=== PATIENT | female | born 1950 | race Caucasian/White ===

== ENCOUNTER 2024-08-06 16:46 | Inpatient (IN) | payer MEDICARE, OTHER ==
--- NOTE | 2024-08-06 17:06 | ED ---
SOB HPI - General Stated Complaint: short of breath Time Seen by Provider: 08/06/24 17:02 Source: patient, RN notes reviewed Mode of arrival: wheelchair Limitations: no limitations - History of Present Illness Initial Comments: This is a 74-year-old female with history of COPD, pulmonary hypertension, AAA and home O2 use (4 LPM) presenting with worsening shortness of breath x 5 days. Patient endorses dyspnea with exertion and presyncope. Denies worsening dyspnea when supine. Endorses receiving prednisone and cefdinir from her primary care on Friday with worsening symptoms. States oxygen saturation has gone as low as the 70s. States she was diagnosed with a 6 cm AAA in June 2024 and scheduled for repair by Dr. Rowan once her current symptoms improve. Is ochoa eduled for a heart catheterization with Dr. Jiménez when her symptoms improve. Recently diagnosed with a pericardial effusion and right ventricular hypertrophy. Also endorses thrush with a burning/dry throat not improving with nystatin mouthwash. Denies fever, chills, chest pain, abdominal pain, N/V/D. MD Complaint: shortness of breath Onset/Timin -: days(s) - Related Data Home Medications Medication Instructions Recorded Confirmed Aspirin EC [Ecotrin Low Dose] 81 mg PO DAILY 08/06/24 08/06/24 Atorvastatin [Lipitor] 40 mg PO DAILY 08/06/24 08/06/24 Cefdinir [Omnicef] 300 mg PO BID 08/06/24 08/06/24 Cetirizine HCl [Zyrtec] 10 mg PO DAILY 08/06/24 08/06/24 Dicyclomine [Bentyl] 10 mg PO DIRECTED 08/06/24 08/06/24 Ergocalciferol [Vitamin D2 (1250 1,250 mcg PO DIRECTED 08/06/24 08/06/24 Mcg = 89355 Iu)] Fluticasone/Umeclidin/Vilanter 1 puff INHALATION DIRECTED 08/06/24 08/06/24 [Trelegy Ellipta 200-62.5-25] Furosemide [Lasix] 20 mg PO DIRECTED 08/06/24 08/06/24 Ipratropium-Albuterol Nebulize 3 ml INHALATION DIRECTED PRN 08/06/24 08/06/24 [Duoneb 0.5 mg-3 mg/3 ml Soln] Ipratropium/Albuter 20-100Mcg 1 puff INHALATION DIRECTED 08/06/24 08/06/24 [Combivent Respimat 20-100Mcg Inhaler] [place] 20mg 20 mg PO DAILY 08/06/24 08/06/24 Nystatin 100,000 Unit/ml Susp 500,000 unit PO QID 08/06/24 08/06/24 [Mycostatin Oral Susp] Sertraline [Zoloft] 50 mg PO DIRECTED 08/06/24 08/06/24 amLODIPine [Norvasc] 2.5 mg PO DAILY 08/06/24 08/06/24 predniSONE [Deltasone] See Taper PO DAILY 08/06/24 08/06/24 Allergies Allergy/AdvReac Type Severity Reaction Status Date / Time levofloxacin [From Levaquin] Allergy Unknown Verified 08/06/24 17:04 tetracycline Allergy Unknown Verified 08/06/24 17:04 Review of Systems ROS Statement: Those systems with pertinent positive or pertinent negative responses have been documented in the HPI. ROS Other: All systems not noted in ROS Statement are negative. General Exam General appearance: alert, in no apparent distress Head exam: Present: atraumatic, normocephalic, normal inspection Eye exam: Present: normal appearance, PERRL, EOMI. Absent: scleral icterus, conjunctival injection, periorbital swelling ENT exam: Present: normal exam, mucous membranes moist Neck exam: Present: normal inspection. Absent: tenderness, meningismus, lymphadenopathy Respiratory exam: Present: rhonchi (RLL rhonchi), decreased breath sounds. Absent: respiratory distress, wheezes, rales, stridor Cardiovascular Exam: Present: regular rate, normal rhythm, normal heart sounds. Absent: systolic murmur, diastolic murmur, rubs, gallop, clicks GI/Abdominal exam: Present: soft, normal bowel sounds, pulsatile mass (Pulsatile mass noted in epigastric region). Absent: distended, tenderness, guarding, rebound, rigid Extremities exam: Present: normal inspection, full ROM, normal capillary refill. Absent: tenderness, pedal edema, joint swelling, calf tenderness Back exam: Present: normal inspection Neurological exam: Present: alert, oriented X3, CN II-XII intact Psychiatric exam: Present: normal affect, normal mood Skin exam: Present: warm, dry, intact, normal color. Absent: rash Course Vital Signs 08/06/24 17:05 Temperature 97.6 F Pulse Rate 112 H Respiratory 22 Rate Blood Pressure 96/62 O2 Sat by Pulse 83 L Oximetry Medical Decision Making - Medical Decision Making Was pt. sent in by a medical professional or institution (, S[facility]NA[facility], PRODUCER ASSISTANT, urgent care, hospital, or fdc...) When possible be specific @ -No Did you speak to anyone other than the patient for history (EMS, parent, family, police, friend...)? What history was obtained from this source @ -No Did you review nursing and triage notes (agree or disagree)? Why? @ -I reviewed and agree with nursing and triage notes Were old charts reviewed (outside hosp., previous admission, EMS record, old EKG, old radiological studies, urgent care reports/EKG's, fdc records)? Report findings @ -No old charts were reviewed Differential Diagnosis (chest pain, altered mental status, abdominal pain women, abdominal pain men, vaginal bleeding, weakness, fever, dyspnea, syncope, headache, dizziness, GI bleed, back pain, seizure, CVA, palpatations, mental health, musculoskeletal)? @ -Differential Dyspnea: Coronary syndrome, arrhythmia, tamponade, asthma, COPD, pulmonary embolism, pneumonia, pneumothorax, pulmonary effusion, anaphylaxis, diabetic ketoacidosis, flailed chest, pulmonary contusion, diaphragmatic rupture, anemia, neuromuscular , this is not meant to be an all-inclusive list. EKG interpreted by me (3pts min.). @ -Sinus rhythm with RBBB and short CHRIS. No ST changes or T wave inversion. Ventricular rate 97 bpm, CHRIS 115 ms, QRS duration 102 ms, QTc 434 ms. X-rays interpreted by me (1pt min.). @ -CXR shows prominent vascular markings indicating pulmonary edema and possible atypical pneumonia. CT interpreted by me (1pt min.). @ -None done U/S interpreted by me (1pt. min.). @ -None done What testing was considered but not performed or refused? (CT, X-rays, U/S, labs)? Why? @ -None What meds were considered but not given or refused? Why? @ -None Did you discuss the management of the patient with other professionals (professionals i.e. Dr., PA, PRODUCER ASSISTANT, lab, RT, psych nurse, foster care social worker, guard immigration, t eacher, cra officer, heel caser)? Give summary @ -Sharif physician advised to patient's status and advised admit to ICU for sepsis. Was smoking cessation discussed for >3mins.? @ -No Was critical care preformed (if so, how long)? @ -No Were there social determinants of health that impacted care today? How? (Homelessness, low income, unemployed, alcoholism, drug addiction, transportation, low edu. Level, literacy, decrease access to med. care, correction, rehab)? @ -No Was there de-escalation of care discussed even if they declined (Discuss DNR or withdrawal of care, Hospice)? DNR status @ -No What co-morbidities impacted this encounter? (DM, HTN, Smoking, COPD, CAD, Cance r, CVA, ARF, Chemo, Hep., AIDS, mental health diagnosis, sleep apnea, morbid obesity)? @ -COPD, AAA, pulmonary hypertension Was patient admitted / discharged? Hospital course, mention meds given and r oute, prescriptions, significant lab abnormalities, going to OR and other pertinent info. @ -Lab work shows leukocytosis (15.9) with left shift. Hypokalemia (3.3), lactic acidosis (5.0), elevated BNP (14K) and slightly elevated troponin (0.036). Cepheid test positive for RSV. CXR shows prominent vascular markings indicating pulmonary edema and possible atypical pneumonia. Patient provided p.o. [place], [place], IV Rocephin and normal saline. Sharif physician advised to patient's status and advised admit to ICU for sepsis. Discussed patient with Dr. Gilbert. Undiagnosed new problem with uncertain prognosis? @ -Sepsis, pneumonia Drug Therapy requiring intensive monitoring for toxicity (Heparin, Nitro, Insulin, Cardizem)? @ -No Were any procedures done? @ -No Diagnosis/symptom? @ -Sepsis, pneumonia, CHF with pulmonary edema, AAA Acute, or Chronic, or Acute on Chronic? @ -Acute Uncomplicated (without systemic symptoms) or Complicated (systemic symptoms)? @ -Complicated Side effects of treatment? @ -No Exacerbation, Progression, or Severe Exacerbation? @ -No Poses a threat to life or bodily function? How? (Chest pain, USA, CT, pneumonia, PE, COPD, DKA, ARF, appy, cholecystitis, CVA, Diverticulitis, Homicidal, Suicidal, threat to staff... and all critical care pts) @ -Sepsis, pneumonia, AAA -end organ damage, respiratory failure, exsanguination with dissection/rupture - Lab Data Result diagrams: 08/06/24 17:32 08/06/24 17:32 Lab Results 08/06/24 08/06/24 08/06/24 Range/Units 17:32 17:32 17:32 WBC 15.9 H (3.8-10.6) k/uL RBC 5.56 H (3.80-5.40) m/uL Hgb 16.3 H (11.4-16.0) gm/dL Hct 50.9 H (34.0-46.0) % MCV 91.6 (80.0-100.0) fL MCH 29.4 (25.0-35.0) pg MCHC 32.1 (31.0-37.0) g/dL RDW 15.4 (11.5-15.5) % Plt Count 285 (150-450) k/uL MPV 8.4 Neutrophils % 92 % Lymphocytes % 4 % Monocytes % 3 % Eosinophils % 0 % Basophils % 0 % Neutrophils # 14.5 H (1.3-7.7) k/uL Lymphocytes # 0.7 L (1.0-4.8) k/uL Monocytes # 0.5 (0-1.0) k/uL Eosinophils # 0.0 (0-0.7) k/uL Basophils # 0.0 (0-0.2) k/uL PT 10.3 (10.0-12.5) sec INR 0.9 (<1.2) APTT 21.8 L (22.0-30.0) sec VBG pH (7.31-7.41) VBG pCO2 (37-51) mmHg VBG HCO3 (24-28) mmol/L Sodium 139 (137-145) mmol/L Potassium 3.3 L (3.5-5.1) mmol/L Chloride 96 L (98-107) mmol/L Carbon Dioxide 24 (22-30) mmol/L Anion Gap 19 mmol/L BUN 27 H (7-17) mg/dL Creatinine 1.00 (0.52-1.04) mg/dL Est GFR (CKD-EPI)AfAm 66 (>60 ml/min/1.73 sqM) Est GFR (CKD-EPI)NonAf 57 (>60 ml/min/1.73 sqM) Glucose 138 H (74-99) mg/dL Lactic Ac Sepsis Rflx Plasma Lactic Acid Yunior (0.7-2.0) mmol/L Calcium 10.4 H (8.4-10.2) mg/dL Magnesium 1.9 (1.6-2.3) mg/dL Total Bilirubin 0.9 (0.2-1.3) mg/dL AST 45 H (14-36) U/L ALT 33 (4-34) U/L Alkaline Phosphatase 89 (38-126) U/L Troponin I (0.000-0.034) ng/mL NT-Pro-B Natriuret Pep 25774 pg/mL Total Protein 7.9 (6.3-8.2) g/dL Albumin 4.9 (3.5-5.0) g/dL Influenza Type A (PCR) (Not Detectd) Influenza Type B (PCR) (Not Detectd) RSV (PCR) (Not Detectd) SARS-CoV-2 (PCR) (Not Detectd) 08/06/24 08/06/24 08/06/24 Range/Units 17:32 17:32 17:32 WBC (3.8-10.6) k/uL RBC (3.80-5.40) m/uL Hgb (11.4-16.0) gm/dL Hct (34.0-46.0) % MCV (80.0-100.0) fL MCH (25.0-35.0) pg MCHC (31.0-37.0) g/dL RDW (11.5-15.5) % Plt Count (150-450) k/uL MPV Neutrophils % % Lymphocytes % % Monocytes % % Eosinophils % % Basophils % % Neutrophils # (1.3-7.7) k/uL Lymphocytes # (1.0-4.8) k/uL Monocytes # (0-1.0) k/uL Eosinophils # (0-0.7) k/uL Basophils # (0-0.2) k/uL PT (10.0-12.5) sec INR (<1.2) APTT (22.0-30.0) sec VBG pH (7.31-7.41) VBG pCO2 (37-51) mmHg VBG HCO3 (24-28) mmol/L Sodium (137-145) mmol/L Potassium (3.5-5.1) mmol/L Chloride (98-107) mmol/L Carbon Dioxide (22-30) mmol/L Anion Gap mmol/L BUN (7-17) mg/dL Creatinine (0.52-1.04) mg/dL Est GFR (CKD-EPI)AfAm (>60 ml/min/1.73 sqM) Est GFR (CKD-EPI)NonAf (>60 ml/min/1.73 sqM) Glucose (74-99) mg/dL Lactic Ac Sepsis Rflx Plasma Lactic Acid Yunior 5.0 H* (0.7-2.0) mmol/L Calcium (8.4-10.2) mg/dL Magnesium (1.6-2.3) mg/dL Total Bilirubin (0.2-1.3) mg/dL AST (14-36) U/L ALT (4-34) U/L Alkaline Phosphatase (38-126) U/L Troponin I 0.036 H* (0.000-0.034) ng/mL NT-Pro-B Natriuret Pep pg/mL Total Protein (6.3-8.2) g/dL Albumin (3.5-5.0) g/dL Influenza Type A (PCR) Not Detected (Not Detectd) Influenza Type B (PCR) Not Detected (Not Detectd) RSV (PCR) Detected A (Not Detectd) SARS-CoV-2 (PCR) Not Detected (Not Detectd) 08/06/24 08/06/24 Range/Units 17:44 18:07 WBC (3.8-10.6) k/uL RBC (3.80-5.40) m/uL Hgb (11.4-16.0) gm/dL Hct (34.0-46.0) % MCV (80.0-100.0) fL MCH (25.0-35.0) pg MCHC (31.0-37.0) g/dL RDW (11.5-15.5) % Plt Count (150-450) k/uL MPV Neutrophils % % Lymphocytes % % Monocytes % % Eosinophils % % Basophils % % Neutrophils # (1.3-7.7) k/uL Lymphocytes # (1.0-4.8) k/uL Monocytes # (0-1.0) k/uL Eosinophils # (0-0.7) k/uL Basophils # (0-0.2) k/uL PT (10.0-12.5) sec INR (<1.2) APTT (22.0-30.0) sec VBG pH 7.43 H (7.31-7.41) VBG pCO2 40 (37-51) mmHg VBG HCO3 26 (24-28) mmol/L Sodium (137-145) mmol/L Potassium (3.5-5.1) mmol/L Chloride (98-107) mmol/L Carbon Dioxide (22-30) mmol/L Anion Gap mmol/L BUN (7-17) mg/dL Creatinine (0.52-1.04) mg/dL Est GFR (CKD-EPI)AfAm (>60 ml/min/1.73 sqM) Est GFR (CKD-EPI)NonAf (>60 ml/min/1.73 sqM) Glucose (74-99) mg/dL Lactic Ac Sepsis Rflx Y Plasma Lactic Acid Yunior (0.7-2.0) mmol/L Calcium (8.4-10.2) mg/dL Magnesium (1.6-2.3) mg/dL Total Bilirubin (0.2-1.3) mg/dL AST (14-36) U/L ALT (4-34) U/L Alkaline Phosphatase (38-126) U/L Troponin I (0.000-0.034) ng/mL NT-Pro-B Natriuret Pep pg/mL Total Protein (6.3-8.2) g/dL Albumin (3.5-5.0) g/dL Influenza Type A (PCR) (Not Detectd) Influenza Type B (PCR) (Not Detectd) RSV (PCR) (Not Detectd) SARS-CoV-2 (PCR) (Not Detectd) Disposition Clinical Impression: RSV (acute bronchiolitis due to respiratory syncytial virus), Lactic acidosis, Acute pulmonary edema, Community acquired pneumonia, Congestive heart failure, Hypokalemia Disposition: ADMITTED IP TO THIS HOSP Condition: Stable Is patient prescribed a controlled substance at d/c from ED?: No Referrals: Nolan Chopra MD [Primary Care Provider] - 1-2 days Time of Disposition: 19:28 Decision Date: 08/06/24 Decision Time: 19:28
[2024-08-06 17:55] LABS: VBG PH 7.43 (7.31-7.41)
[2024-08-06 17:56] LABS: Basophils % (A) 0 %; Eosinophils % (A) 0 %; HCT 50.9 % (34.0-46.0); HGB 16.3 gm/dL (11.4-16.0); Lymphocytes # (A) 0.7 k/uL (1.0-4.8); Lymphocytes % (A) 4 %; MCH 29.4 pg (25.0-35.0); MCHC 32.1 g/dL (31.0-37.0); MCV 91.6 fL (80.0-100.0); Mean Platelet Volume 8.4; Monocytes # (A) 0.5 k/uL (0-1.0); Monocytes % (A) 3 %; Neutrophils # (A) 14.5 k/uL (1.3-7.7); Neutrophils % (A) 92 %; Platelet Count 285 k/uL (150-450); RBC 5.56 m/uL (3.80-5.40); RDW 15.4 % (11.5-15.5); WBC 15.9 k/uL (3.8-10.6)
[2024-08-06 18:07] LABS: AST 45 U/L (14-36); African American GFR (CKD) 66 (>60 ml/min/1.73 sqM); Albumin 4.9 g/dL (3.5-5.0); Alkaline Phosphatase 89 U/L (38-126); Anion Gap 19 mmol/L; Blood Urea Nitrogen 27 mg/dL (7-17); Calcium 10.4 mg/dL (8.4-10.2); Carbon Dioxide 24 mmol/L (22-30); Chloride 96 mmol/L (98-107); Glucose 138 mg/dL (74-99); Magnesium 1.9 mg/dL (1.6-2.3); Non-African American GFR(CKD) 57 (>60 ml/min/1.73 sqM); Potassium 3.3 mmol/L (3.5-5.1); Sodium 139 mmol/L (137-145); Total Bilirubin 0.9 mg/dL (0.2-1.3); Total Protein 7.9 g/dL (6.3-8.2)
[2024-08-06 18:10] LABS: INR 0.9 (<1.2); Prothrombin Time 10.3 sec (10.0-12.5)
[2024-08-06 18:13] LABS: Partial Thromboplastin Time 21.8 sec (22.0-30.0)
[2024-08-06 18:14] LABS: NT-Pro-B-Type Natriuretic Pept 14000 pg/mL
[2024-08-06 18:29] LABS: Influenza A Not Detected (Not Detectd); Influenza B Not Detected (Not Detectd); RSV Detected (Not Detectd)
--- NOTE | 2024-08-06 18:44 | XR ---
EXAMINATION TYPE: XR chest 2V DATE OF EXAM: 08/06/2024 5:51 PM COMPARISON: 11/30/2021 CLINICAL INDICATION: Female, 74 years old with history of difficulty breathing, TECHNIQUE: XR chest 2V view(s) obtained. FINDINGS: The heart size is normal. The pulmonary vasculature is borderline prominent. Mild increased lung markings are present in the mid and lower lung bee. Correlate for pulmonary ed fartun. Atypical pneumonia be considered. Findings are new IMPRESSION: 1. Mild increased linear markings mid and lower lung bee with mild prominence of the pulmonary vas cular markings. Correlate for pulmonary edema or atypical pneumonia. Follow-up as clinically indicate d. [facility], , 08/06/2024 6:41 PM
[2024-08-06 19:02] LABS: ALT 33 U/L (4-34)
[2024-08-06] MEDS: POTASSIUM CHLORIDE ER 20 MEQ TAB.ER PO STA (19:57)
[2024-08-06] MEDS: AZITHROMYCIN 500 MG TAB PO STA (19:57)
[2024-08-06] MEDS ORDERED: Potassium Replacement Protocol 1 EACH MISC MISCELLANE PRN (19:58)
[2024-08-06] MEDS ORDERED: NALOXONE 0.4 MG/ML 1 ML VIAL IV PRN (19:58)
[2024-08-06] MEDS: SODIUM CHLORIDE 0.9% 500 ML 500 ML IV STA (19:58)
[2024-08-06] MEDS: FUROSEMIDE 10 MG/ML 4 ML VIAL IV STA (19:59)
[2024-08-06] MEDS: NYSTATIN 100,000 UNIT/ML SUSP 500,000 UNIT/5 ML CUP PO ONE (21:22)
[2024-08-06 22:03] LABS: ABG Base Excess 3.8 mmol/L; ABG HCO3 27 mmol/L (21-25); ABG PCO2 34 mmHg (35-45); ABG TCO2 28 mmol/L (19-24); Allen Test Performed? Yes
[2024-08-06 22:09] LABS: ABG PO2 58 mmHg (83-108)
--- NOTE | 2024-08-06 23:03 | P.HPIM ---
History of Present Illness H&P Date: 08/06/24 Patient is a 74-year-old female with history of COPD, pulmonary hypertension, AAA and home O2 use (4 LPM) presenting with worsening shortness of breath for the last week. Patient states she cannot walk 20 feet without becoming extremely short of breath. She states her shortness of breath has gotten worse since Friday. She saw her PCP was given steroids and antibiotics and had 2 shots of Solu-Medrol on Friday and Friday and did not seem to improve. She was also given oral steroids and antibiotics yesterday. She states at home she wears 4 L of home oxygen at baseline. She also states she is supposed to have a AAA repair, but this surgery has been postponed due to her symptoms. She is also scheduled for heart cath when her symptoms improve as well. Patient states she thinks she has thrush and has a burning dry throat which is not improving with nystatin swish and swallow. She denies any fevers, chills, chest pain, abdominal pain, nausea vomiting diarrhea. Vitals on admission temperature was 97.6, heart rate was 112, respiratory rate 22, blood pressure 93/62, O2 saturation of 83% on 4 L nasal cannula. EKG independently interpreted as sinus rhythm with ventricular rate 97 and QTc of 434 ms CXR shows mild increased linear markings mid and lower lung bee with mild prominence of the pulmonary vasculature markings, consistent with pulmonary hypertension Labs on admission show WBCs 15.9 with left shift, hemoglobin 16.3, platelets 285. PT 10.3, INR 0.9, PTT 21.8. Sodium 139, potassium 3.3, chloride 96, bicarb 24, BUN 27, creatinine 1, glucose 138. Lactic acid downtrending 5 to 4.1 . Calcium 10.4. Troponin downtrending 0.036, 0.032. Cepheid was positive for RSV. Review of systems: Pertinent positives and negatives as discussed in HPI, a complete review of systems was performed and all other systems are negative. Physical examination: Vital signs reviewed General: nontoxic, no distress, appears at stated age Derm: warm, dry, intact Head: atraumatic, normocephalic, symmetric Eyes: anicteric sclera Mouth: no lip lesion, mucus membranes moist Cardiovascular: S1 S2 reg, no murmur Lungs: Mild inspiratory wheezing noted, crackles noted in the lung bases Abdominal: soft, non-tender to palpation, nondistended Extremities: positive mild peripheral cyanosis noted on nail beds, or pedal edema. Neuro: Alert, Oriented to person, time and place, Gross neurological examination did not reveal any focal deficits. Cranial nerves II to XII grossly intact. Bilateral upper and lower extremity muscle strength intact and sensation intact. Psych: well appearing, appropriate affect Assessment/Plan: 74-year-old female with history of COPD, pulmonary hypertension, AAA and home oxygen use presented for progressively worsening shortness of breath for the last week. Patient will be admitted to medical floors for further evaluation. Active: Acute on chronic hypoxic respiratory failure in the setting of sepsis Sepsis viral Pneumonia Chest x-ray shows mild increased linear markings mid and lower lung bee with mild prominence of the pulmonary vasculature markings, pulmonary edema versus atypical pneumonia RSV positive Leukocytosis with left shift Initial VBG pH 7.43, pCO2 40, bicarb 26 ABG pH 7.5, pCO2 was 34, pO2 58, bicarb 27 Supplemental oxygen in order to maintain O2 sats above 90%, currently on 10 L high flow nasal cannula Cardiac monitoring Consult pulmonology Prednisone 50 mg po daily DuoNebs 4 times daily s/p one time dose of Zithromax 500 mg , Rocephin 2 g in the ED , will monitor off antibiotics for now due viral pneumonia Follow-up procalcitonin Polycythemia , likely secondary to chronic hypoxemia Hemoglobin 16.3 Continue to monitor Hypokalemia Replace per protocol Mild hypercalcemia Ca 10.5 repeat in AM , if it continues to rise, consider workup and natriuresis Marginally elevated troponin, trending down in the absence of chest pain First troponin was 0.036, then 0.032 NT proBNP 14,000 Follow-up echocardiogram Cardiac monitoring Consult cardiology F: 0.9% normal saline at 50/h E: Replete as needed N: Heart healthy diet A: As tolerated DVT prophylaxis: Lovenox 40 mg subcu daily The patient is admitted with an anticipated more than 2 midnight stay for evaluation of acute on chronic hypoxic respiratory failure CODE STATUS: Full code Discussed with: Patient Anticipated discharge place: Pending clinical course I have seen and evaluated the patient today. I Discussed the case with the resident and agree with the resident's findings I edited the assessment and plan as necessary as documented in the resident's note. Past Medical History Past Medical History: COPD Additional Past Medical History / Comment(s): Aortic aneurysm. Pulmonary Hypertension Past Surgical History: Breast Surgery, Hysterectomy Additional Past Surgical History / Comment(s): Knee replacement. Wrist surgery. Cataract surgery Smoking Status: Former smoker Past Alcohol Use History: None Reported Past Drug Use History: None Reported Medications and Allergies Home Medications Medication Instructions Recorded Confirmed Type Aspirin EC [Ecotrin Low Dose] 81 mg PO DAILY 08/06/24 08/06/24 History Atorvastatin [Lipitor] 40 mg PO DAILY 08/06/24 08/06/24 History Cefdinir [Omnicef] 300 mg PO BID 08/06/24 08/06/24 History Cetirizine HCl [Zyrtec] 10 mg PO DAILY 08/06/24 08/06/24 History Dicyclomine [Bentyl] 10 mg PO DIRECTED 08/06/24 08/06/24 History Ergocalciferol [Vitamin D2 (1250 1,250 mcg PO DIRECTED 08/06/24 08/06/24 History Mcg = 80762 Iu)] Fluticasone/Umeclidin/Vilanter 1 puff INHALATION DIRECTED 08/06/24 08/06/24 History [Trelegy Ellipta 200-62.5-25] Furosemide [Lasix] 20 mg PO DIRECTED 08/06/24 08/06/24 History Ipratropium-Albuterol Nebulize 3 ml INHALATION DIRECTED PRN 08/06/24 08/06/24 History [Duoneb 0.5 mg-3 mg/3 ml Soln] Ipratropium/Albuter 20-100Mcg 1 puff INHALATION DIRECTED 08/06/24 08/06/24 History [Combivent Respimat 20-100Mcg Inhaler] [place] 20mg 20 mg PO DAILY 08/06/24 08/06/24 History Nystatin 100,000 Unit/ml Susp 500,000 unit PO QID 08/06/24 08/06/24 History [Mycostatin Oral Susp] Sertraline [Zoloft] 50 mg PO DIRECTED 08/06/24 08/06/24 History amLODIPine [Norvasc] 2.5 mg PO DAILY 08/06/24 08/06/24 History predniSONE [Deltasone] See Taper PO DAILY 08/06/24 08/06/24 History Allergies Allergy/AdvReac Type Severity Reaction Status Date / Time levofloxacin [From Levaquin] Allergy Unknown Verified 08/06/24 17:04 tetracycline Allergy Unknown Verified 08/06/24 17:04 Physical Exam Vitals: Vital Signs Temp Pulse Resp BP Pulse Ox 08/06/24 17:05 97.6 F 112 H 22 96/62 83 L Intake and Output 08/06/24 08/06/24 08/06/24 06:59 14:59 22:59 Other: Weight 60.781 kg Results CBC & Chem 7: 08/06/24 17:32 08/06/24 17:32 Labs: Abnormal Lab Results - Last 24 Hours (Table) 08/06/24 08/06/24 08/06/24 Range/Units 17:32 17:32 17:32 WBC 15.9 H (3.8-10.6) k/uL RBC 5.56 H (3.80-5.40) m/uL Hgb 16.3 H (11.4-16.0) gm/dL Hct 50.9 H (34.0-46.0) % Neutrophils # 14.5 H (1.3-7.7) k/uL Lymphocytes # 0.7 L (1.0-4.8) k/uL APTT 21.8 L (22.0-30.0) sec VBG pH (7.31-7.41) Potassium 3.3 L (3.5-5.1) mmol/L Chloride 96 L (98-107) mmol/L BUN 27 H (7-17) mg/dL Glucose 138 H (74-99) mg/dL Plasma Lactic Acid Yunior (0.7-2.0) mmol/L Calcium 10.4 H (8.4-10.2) mg/dL AST 45 H (14-36) U/L Troponin I (0.000-0.034) ng/mL RSV (PCR) (Not Detectd) 08/06/24 08/06/24 08/06/24 Range/Units 17:32 17:32 17:32 WBC (3.8-10.6) k/uL RBC (3.80-5.40) m/uL Hgb (11.4-16.0) gm/dL Hct (34.0-46.0) % Neutrophils # (1.3-7.7) k/uL Lymphocytes # (1.0-4.8) k/uL APTT (22.0-30.0) sec VBG pH (7.31-7.41) Potassium (3.5-5.1) mmol/L Chloride (98-107) mmol/L BUN (7-17) mg/dL Glucose (74-99) mg/dL Plasma Lactic Acid Yunior 5.0 H* (0.7-2.0) mmol/L Calcium (8.4-10.2) mg/dL AST (14-36) U/L Troponin I 0.036 H* (0.000-0.034) ng/mL RSV (PCR) Detected A (Not Detectd) 08/06/24 Range/Units 17:44 WBC (3.8-10.6) k/uL RBC (3.80-5.40) m/uL Hgb (11.4-16.0) gm/dL Hct (34.0-46.0) % Neutrophils # (1.3-7.7) k/uL Lymphocytes # (1.0-4.8) k/uL APTT (22.0-30.0) sec VBG pH 7.43 H (7.31-7.41) Potassium (3.5-5.1) mmol/L Chloride (98-107) mmol/L BUN (7-17) mg/dL Glucose (74-99) mg/dL Plasma Lactic Acid Yunior (0.7-2.0) mmol/L Calcium (8.4-10.2) mg/dL AST (14-36) U/L Troponin I (0.000-0.034) ng/mL RSV (PCR) (Not Detectd)
[2024-08-06] MEDS: predniSONE 50 MG TAB PO SCH (23:22)
[2024-08-06] MEDS: NYSTATIN 100,000 UNIT/ML SUSP 500,000 UNIT/5 ML CUP PO SCH ×2 (23:23→23:28)
[2024-08-06] MEDS: SYMBICORT 160-4.5 MCG INHALER INHALATION SCH (23:49)
[2024-08-07] MEDS: ACETAMINOPHEN TAB 325 MG TAB PO PRN (06:20)
[2024-08-07] MEDS: IPRATROPIUM-ALBUTEROL 3 ML NEB INHALATION PRN (08:08)
[2024-08-07] MEDS: ATORVASTATIN 40 MG TAB PO SCH (08:24)
[2024-08-07] MEDS: amLODIPine 2.5 MG TAB PO SCH (08:24)
[2024-08-07] MEDS: ASPIRIN 81 MG PO SCH (08:24)
[2024-08-07] MEDS: ENOXAPARIN 40 MG/0.4 ML SYRINGE SQ SCH (08:24)
[2024-08-07] MEDS: LORATADINE 10 MG TAB PO SCH (08:24)
[2024-08-07 08:31] LABS: Basophils % (A) 0 %; Eosinophils % (A) 0 %; HCT 44.3 % (34.0-46.0); HGB 14.8 gm/dL (11.4-16.0); Lymphocytes # (A) 0.6 k/uL (1.0-4.8); Lymphocytes % (A) 6 %; MCHC 33.3 g/dL (31.0-37.0); Mean Platelet Volume 8.6; Monocytes # (A) 0.4 k/uL (0-1.0); Monocytes % (A) 4 %; Neutrophils # (A) 10.3 k/uL (1.3-7.7); Neutrophils % (A) 90 %; Platelet Count 241 k/uL (150-450); RBC 4.92 m/uL (3.80-5.40); RDW 15.8 % (11.5-15.5); WBC 11.4 k/uL (3.8-10.6)
[2024-08-07 09:12] LABS: African American GFR (CKD) 64 (>60 ml/min/1.73 sqM); Anion Gap 8 mmol/L; Blood Urea Nitrogen 27 mg/dL (7-17); Calcium 9.7 mg/dL (8.4-10.2); Carbon Dioxide 26 mmol/L (22-30); Chloride 104 mmol/L (98-107); Glucose 155 mg/dL (74-99); Non-African American GFR(CKD) 56 (>60 ml/min/1.73 sqM); Potassium 4.2 mmol/L (3.5-5.1); Sodium 138 mmol/L (137-145)
[2024-08-07] MEDS: methylPREDNISolone SOD SUCCI 125 MG/2 ML VIAL IV SCH (09:40)
--- NOTE | 2024-08-07 13:07 | P.CNPUL ---
History of Present Illness Consult date: 08/07/24 History of present illness: This is a 74-year-old female patient with advanced COPD who is coming into the hospital with increased dyspnea cough chest congestion and wheezing and the patient tested positive for RSV. She is currently on 7 L of oxygen by nasal cannula. Chest x-ray in the emergency department showed mild increase in interstitial markings bilaterally without any areas of consolidation. Hemoglobin is at 14 with a white cell count of 11. Initial blood gas showed a pH of 7.5 with a pCO2 of 35 and pO2 of 58 and this was done in the emergency department. BUN is 27 with a creatinine of 1.01 and a sodium levels at 138. Lactic acid level dropped from 4 down to 0.9. Procalcitonin level is at 0.09. The patient accordingly was hospitalized for an acute RSV infection and secondary COPD exacerbation. No altered mentation for now. She is awake and alert and communicating In terms of her COPD, the patient has been COPD and the patient has been oxygen dependent. She carries more than [id number] smoking history. She typically wears oxygen at 3 and half liters per minute nasal cannula. She has significant limitation exercise capacity and the patient gets short of breath while walking around 20 to 25 feet. She has been maintained on Trelegy Ellipta 1 puff a day and prednisone 10 mg p.o. daily. She was tried to taper the steroids and she was unable to do so due to worsening shortness of breath. No orthopnea. No leg edema. Most recent CAT scan of the chest from 07/15/2023 showed moderate to diffuse emphysematous changes bilaterally and some scattered subfibrotic changes in the lung bases. The patient is also known to have a large infrarenal abdominal attic aneurysm measuring 6 cm in size and the patient is being considered for endovascular stent grafting. Other comorbidities include secondary pulmonary hypertension with preserved LV function, group 3 pulmonary hypertension, asymptomatic carotid artery disease 70% on the left and hypertension and hyperlipidemia. Review of Systems Constitutional: Reports fatigue, Reports poor appetite, Reports weakness Eyes: denies as per HPI, denies blurred vision, denies bulging eye, denies decreased vision, denies diplopia, denies discharge, denies dry eye, denies irritation, denies itching, denies pain, denies photophobia, denies loss of peripheral vision, denies loss of vision, denies tunnel vision/blind spots Ears: deny: decreased hearing, ear discharge, earache, tinnitus Ears, nose, mouth and throat: Reports as per HPI Breasts: absent: as per HPI, change in shape, gynecomastia, masses, nipple discharge, pain, skin changes, swelling Cardiovascular: Reports decreased exercise tolerance, Reports dyspnea on exertion Respiratory: Reports cough, Reports dyspnea, Reports home oxygen, Reports wheezing Gastrointestinal: Reports as per HPI Genitourinary: Reports as per HPI Menstruation: Reports as per HPI Musculoskeletal: Reports as per HPI Musculoskeletal: absent: ankle pain, ankle stiffness, ankle swelling, as per HPI, elbow pain, elbow stiffness, elbow swelling, foot pain, foot stiffness, foot swelling, hand pain, hand stiffness, hand swelling, hip pain, hip stiffness, hip swelling, knee pain, knee stiffness, knee swelling, shoulder pain, shoulder stiffness, shoulder swelling, wrist pain, wrist stiffness, wrist swelling Integumentary: Reports as per HPI Neurological: Reports as per HPI Psychiatric: Reports as per HPI Endocrine: Reports as per HPI Hematologic/Lymphatic: Reports as per HPI Allergic/Immunologic: Reports as per HPI Past Medical History Past Medical History: COPD Additional Past Medical History / Comment(s): Aortic aneurysm. Pulmonary Hypertension Past Surgical History: Breast Surgery, Hysterectomy Additional Past Surgical History / Comment(s): Knee replacement. Wrist surgery. Cataract surgery Smoking Status: Former smoker Past Alcohol Use History: None Reported Past Drug Use History: None Reported Medications and Allergies Home Medications Medication Instructions Recorded Confirmed Type Aspirin EC [Ecotrin Low Dose] 81 mg PO DAILY 08/06/24 08/06/24 History Atorvastatin [Lipitor] 40 mg PO DAILY 08/06/24 08/06/24 History Cefdinir [Omnicef] 300 mg PO BID 08/06/24 08/06/24 History Cetirizine HCl [Zyrtec] 10 mg PO DAILY 08/06/24 08/06/24 History Dicyclomine [Bentyl] 10 mg PO TID 08/06/24 08/07/24 History Ergocalciferol [Vitamin D2 (1250 1,250 mcg PO MO 08/06/24 08/07/24 History Mcg = 21730 Iu)] Fluticasone/Umeclidin/Vilanter 1 puff INHALATION RT-DAILY 08/06/24 08/07/24 History [Trelegy Ellipta 200-62.5-25] Furosemide [Lasix] 20 mg PO DAILY 08/06/24 08/07/24 History Ipratropium-Albuterol Nebulize 3 ml INHALATION RT-QID PRN 08/06/24 08/07/24 History [Duoneb 0.5 mg-3 mg/3 ml Soln] Ipratropium/Albuter 20-100Mcg 1 puff INHALATION RT-QID 08/06/24 08/07/24 History [Combivent Respimat 20-100Mcg Inhaler] [place] 20mg 20 mg PO DAILY 08/06/24 08/06/24 History Nystatin 100,000 Unit/ml Susp 500,000 unit PO QID 08/06/24 08/06/24 History [Mycostatin Oral Susp] Sertraline [Zoloft] 50 mg PO DAILY 08/06/24 08/07/24 History amLODIPine [Norvasc] 2.5 mg PO DAILY 08/06/24 08/06/24 History predniSONE [Deltasone] See Taper PO DAILY 08/06/24 08/06/24 History Allergies Allergy/AdvReac Type Severity Reaction Status Date / Time levofloxacin [From Levaquin] Allergy Unknown Verified 08/06/24 17:04 tetracycline Allergy Unknown Verified 08/06/24 17:04 Physical Exam Vitals: Vital Signs Temp Pulse Pulse Resp BP Pulse Ox 08/07/24 08:30 85 18 08/07/24 08:20 96 08/07/24 08:08 94 08/07/24 07:00 85 16 137/92 97 08/07/24 05:00 99 18 128/97 91 L 08/07/24 03:00 82 134/90 98 08/07/24 02:00 86 18 140/98 98 08/07/24 00:00 87 18 136/84 90 L 08/06/24 23:06 94 18 133/90 92 L 08/06/24 21:46 92 18 126/89 94 L 08/06/24 21:13 90 18 88 L 08/06/24 21:08 91 19 128/86 79 L 08/06/24 17:05 97.6 F 112 H 22 96/62 83 L Intake and Output 08/06/24 08/07/24 08/07/24 22:59 06:59 14:59 Other: Voiding Method Bedside Commode Weight 60.781 kg General: nontoxic, no distress, appears at stated age, currently on 7 L of oxygen by nasal cannula. Able to communicate. Derm: warm, dry, intact Head: atraumatic, normocephalic, symmetric Eyes: anicteric sclera Mouth: no lip lesion, mucus membranes moist Cardiovascular: S1 S2 reg, no murmur Lungs: Mild inspiratory wheezing noted, crackles noted in the lung bases, breath sounds are extensively diminished bilaterally. Abdominal: soft, non-tender to palpation, nondistended Extremities: positive mild peripheral cyanosis noted on nail beds, or pedal edema. Neuro: Alert, Oriented to person, time and place, Gross neurological examination did not reveal any focal deficits. Cranial nerves II to XII grossly intact. Bilateral upper and lower extremity muscle strength intact and sensation intact. Psych: well appearing, appropriate affect Results - Laboratory Findings CBC and BMP: 08/07/24 08:14 08/07/24 08:14 ABG ABG pH 7.50 (7.35-7.45) H 08/06/24 22:00 ABG pCO2 34 mmHg (35-45) L 08/06/24 22:00 ABG pO2 58 mmHg (83-108) L* 08/06/24 22:00 ABG O2 Saturation 92.0 % (94-97) L 08/06/24 22:00 PT/INR, D-dimer PT 10.3 sec (10.0-12.5) 08/06/24 17:32 INR 0.9 (<1.2) 08/06/24 17:32 Abnormal lab findings: Abnormal Labs 08/06/24 08/06/24 08/06/24 17:32 17:32 17:32 WBC 15.9 H RBC 5.56 H Hgb 16.3 H Hct 50.9 H RDW Neutrophils # 14.5 H Lymphocytes # 0.7 L APTT 21.8 L ABG pH ABG pCO2 ABG pO2 ABG HCO3 ABG Total CO2 ABG O2 Saturation VBG pH Potassium 3.3 L Chloride 96 L BUN 27 H Glucose 138 H Plasma Lactic Acid Yunior Calcium 10.4 H AST 45 H Troponin I RSV (PCR) 08/06/24 08/06/24 08/06/24 17:32 17:32 17:32 WBC RBC Hgb Hct RDW Neutrophils # Lymphocytes # APTT ABG pH ABG pCO2 ABG pO2 ABG HCO3 ABG Total CO2 ABG O2 Saturation VBG pH Potassium Chloride BUN Glucose Plasma Lactic Acid Yunior 5.0 H* Calcium AST Troponin I 0.036 H* RSV (PCR) Detected A 08/06/24 08/06/24 08/06/24 17:44 21:08 22:00 WBC RBC Hgb Hct RDW Neutrophils # Lymphocytes # APTT ABG pH 7.50 H ABG pCO2 34 L ABG pO2 58 L* ABG HCO3 27 H ABG Total CO2 28 H ABG O2 Saturation 92.0 L VBG pH 7.43 H Potassium Chloride BUN Glucose Plasma Lactic Acid Yunior 4.1 H* Calcium AST Troponin I RSV (PCR) 08/06/24 08/07/24 23:58 08:14 WBC 11.4 H RBC Hgb Hct RDW 15.8 H Neutrophils # 10.3 H Lymphocytes # 0.6 L APTT ABG pH ABG pCO2 ABG pO2 ABG HCO3 ABG Total CO2 ABG O2 Saturation VBG pH Potassium Chloride BUN Glucose Plasma Lactic Acid Yunior 4.0 H* Calcium AST Troponin I RSV (PCR) - Diagnostic Findings Chest x-ray: image reviewed Assessment and Plan Plan: Acute exacerbation of COPD secondary to RSV infection. Patient is hypoxic. No signs of any hypercapnic respiratory failure or CO2 narcosis. Acute RSV tracheobronchitis, nonvaccinated Acute on chronic hypoxic misha failure. Typically the patient is on 3 and half liters of oxygen by nasal cannula, currently on 7 L O2 nasal cannula secondary to above severe chronic obstructive. The patient's pulmonary function test shows essentially preserved spirometry. Nevertheless, diffusion capacity is down to 28% of predicted and this explains the patient's exertional dyspnea and hypoxemia. She has limited fibrosis in the lung bases bilaterally. Previous COPD exacerbations requiring hospitalizations, none since Jun 2022. Currently on Trelegy Ellipta one inhalation a day, and the patient is taking prednisone 10 mg as maintenance and albuterol PRN Albuterol nebs, typically using around 2-3 times a day,Continue using Combivent on an as-needed basis anterior mediastinal lymphadenopathy, The most recent CAT scan of the chest that was done on 07/15/2023 showed no evidence of any significant mediastinal lymphadenopathy. No evidence of any malignancy at this point in time. No pulmonary nodules or lesions. history of depression secondary pulmonary hypertension. The patient's LV function is preserved and the patient's most recent echocardiogram from June 2022 showed a PA pressure of 49 mmHg. This is likely group 3 pulmonary hypertension arteriosclerosis of carotid artery, Asymptomatic 70% left internal carotid artery stenosis, currently on aspirin. Hyperlipidemia abdominal aortic aneurysm, 6 cm infrarenal abdominal aortic aneurysm with a intra aortic thrombus. No dissection. Awaiting endovascular stent grafting to be done by vascular surgery. Plan Titrate oxygen flow to maintain saturation above 90%, currently on 7 L O2 nasal cannula DuoNeb nebulized treatments [id number] IV Solu-Medrol 60 mg every 6 hours Allowed the patient to utilize Trelegy Ellipta from home Resume home medications Procalcitonin level is not elevated Continue supportive care Will continue to follow
--- NOTE | 2024-08-07 14:34 | P.PN ---
Subjective Progress Note Date: 08/07/24 (delayed charting seen at approx 0845) 74-year-old with COPD on home O2 at 4 L, pulmonary hypertension, and abdominal aortic aneurysm who presents with shortness of breath. In the ER ultimately fo und to have acute on chronic hypoxic respiratory failure with an O2 sat of 83% on home 4 L. Found to be RSV positive. Initial laboratory analysis also remarkable for white blood cell count of 15.9, potassium 3.3, lactic acid 5, calcium 10.4, and troponin of 0.036. X-ray consistent with atypical pneumonia versus pulmonary edema. Required increased to 10 L nasal cannula. Started on bronchodilators, steroids, and nystatin. Pulmonary consulted. Patient seen and examined at bedside. Better. Breathing easier today. Still feeling very winded with exertion. 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 [place] Vital signs reviewed General: Nontoxic, no distress, appears at stated age Cardiovascular: S1S2 reg, no murmur Lungs: Breath sounds bilateral with crackles at bases, no rhonchi, no rales, no accessory muscle use Abdominal: Soft, nontender to palpation, no guarding Ext: No gross muscle atrophy, no edema b/l lower extremities, no contractures Neuro: CN II-XI grossly intact, no focal neuro deficits Psych: Alert, oriented, appropriate affect Assessment/Plan: Chronic hypoxic respiratory failure currently on 8 L with home O2 of 4 L -O2 sat of 83% on home O2 of 4 L in the ER RSV pneumonia Acute exacerbation of COPD Thrush -Solu-Medrol 60 every 6 IV, DuoNeb times daily as needed, continue with Symbicort daily - nystatin swish and swallow. Procalcitonin 0.9. Doubt bacterial pneumonia agree with discontinuation of ceftriaxone and Zithromax HTN -Norvasc 2.5 mg Imaging: None new Data Review: CBC reviewed white blood cell count 11.4, K+ 4.2, BUN 27, glucose 155, lactic acid 0.9, procalcitonin 0.9 DVT prophylaxis: Lovenox Anticipated discharge date: Pending clinical course Anticipated discharge place: Pending clinical course This dictation was prepared using [employer] voice recognition software. Though every attempt is made to correct errors during dictation some may still exist. Objective - Vital Signs Vital signs: Vital Signs Temp 97.6 F 08/06/24 17:05 Pulse 72 01/11/25 14:29 Resp 16 08/07/24 14:29 BP 126/86 08/07/24 14:29 Pulse Ox 92 L 08/07/24 14:29 FiO2 Intake & Output 08/06/24 08/07/24 08/07/24 18:59 06:59 18:59 Weight 60.781 kg Other: Voiding Method Bedside Commode - Labs CBC & Chem 7: 08/07/24 08:14 08/07/24 08:14 Labs: Abnormal Lab Results - Last 24 Hours (Table) 08/06/24 08/06/24 08/06/24 Range/Units 17:32 17:32 17:32 WBC 15.9 H (3.8-10.6) k/uL RBC 5.56 H (3.80-5.40) m/uL Hgb 16.3 H (11.4-16.0) gm/dL Hct 50.9 H (34.0-46.0) % RDW (11.5-15.5) % Neutrophils # 14.5 H (1.3-7.7) k/uL Lymphocytes # 0.7 L (1.0-4.8) k/uL APTT 21.8 L (22.0-30.0) sec ABG pH (7.35-7.45) ABG pCO2 (35-45) mmHg ABG pO2 (83-108) mmHg ABG HCO3 (21-25) mmol/L ABG Total CO2 (19-24) mmol/L ABG O2 Saturation (94-97) % VBG pH (7.31-7.41) Potassium 3.3 L (3.5-5.1) mmol/L Chloride 96 L (98-107) mmol/L BUN 27 H (7-17) mg/dL Glucose 138 H (74-99) mg/dL Plasma Lactic Acid Yunior (0.7-2.0) mmol/L Calcium 10.4 H (8.4-10.2) mg/dL AST 45 H (14-36) U/L Troponin I (0.000-0.034) ng/mL RSV (PCR) (Not Detectd) 08/06/24 08/06/24 08/06/24 Range/Units 17:32 17:32 17:32 WBC (3.8-10.6) k/uL RBC (3.80-5.40) m/uL Hgb (11.4-16.0) gm/dL Hct (34.0-46.0) % RDW (11.5-15.5) % Neutrophils # (1.3-7.7) k/uL Lymphocytes # (1.0-4.8) k/uL APTT (22.0-30.0) sec ABG pH (7.35-7.45) ABG pCO2 (35-45) mmHg ABG pO2 (83-108) mmHg ABG HCO3 (21-25) mmol/L ABG Total CO2 (19-24) mmol/L ABG O2 Saturation (94-97) % VBG pH (7.31-7.41) Potassium (3.5-5.1) mmol/L Chloride (98-107) mmol/L BUN (7-17) mg/dL Glucose (74-99) mg/dL Plasma Lactic Acid Yunior 5.0 H* (0.7-2.0) mmol/L Calcium (8.4-10.2) mg/dL AST (14-36) U/L Troponin I 0.036 H* (0.000-0.034) ng/mL RSV (PCR) Detected A (Not Detectd) 08/06/24 08/06/24 08/06/24 Range/Units 17:44 21:08 22:00 WBC (3.8-10.6) k/uL RBC (3.80-5.40) m/uL Hgb (11.4-16.0) gm/dL Hct (34.0-46.0) % RDW (11.5-15.5) % Neutrophils # (1.3-7.7) k/uL Lymphocytes # (1.0-4.8) k/uL APTT (22.0-30.0) sec ABG pH 7.50 H (7.35-7.45) ABG pCO2 34 L (35-45) mmHg ABG pO2 58 L* (83-108) mmHg ABG HCO3 27 H (21-25) mmol/L ABG Total CO2 28 H (19-24) mmol/L ABG O2 Saturation 92.0 L (94-97) % VBG pH 7.43 H (7.31-7.41) Potassium (3.5-5.1) mmol/L Chloride (98-107) mmol/L BUN (7-17) mg/dL Glucose (74-99) mg/dL Plasma Lactic Acid Yunior 4.1 H* (0.7-2.0) mmol/L Calcium (8.4-10.2) mg/dL AST (14-36) U/L Troponin I (0.000-0.034) ng/mL RSV (PCR) (Not Detectd) 08/06/24 08/07/24 08/07/24 Range/Units 23:58 08:14 08:14 WBC 11.4 H (3.8-10.6) k/uL RBC (3.80-5.40) m/uL Hgb (11.4-16.0) gm/dL Hct (34.0-46.0) % RDW 15.8 H (11.5-15.5) % Neutrophils # 10.3 H (1.3-7.7) k/uL Lymphocytes # 0.6 L (1.0-4.8) k/uL APTT (22.0-30.0) sec ABG pH (7.35-7.45) ABG pCO2 (35-45) mmHg ABG pO2 (83-108) mmHg ABG HCO3 (21-25) mmol/L ABG Total CO2 (19-24) mmol/L ABG O2 Saturation (94-97) % VBG pH (7.31-7.41) Potassium (3.5-5.1) mmol/L Chloride (98-107) mmol/L BUN 27 H (7-17) mg/dL Glucose 155 H (74-99) mg/dL Plasma Lactic Acid Yunior 4.0 H* (0.7-2.0) mmol/L Calcium (8.4-10.2) mg/dL AST (14-36) U/L Troponin I (0.000-0.034) ng/mL RSV (PCR) (Not Detectd)
--- NOTE | 2024-08-07 15:36 | P.CRDCN ---
History of Present Illness Consult date: 08/07/24 Consult reason: shortness of breath Chief complaint: Shortness of breath History of present illness: History of present illness: Patient is a pleasant 74-year-old female with significant past medical history of AAA approximately 6 cm awaiting repair, pulmonary hypertension, carotid stenosis, COPD on home oxygen for the past 2 years who presented with worsening shortness of breath. She does follow with forensic analyst Dr. Estuardo Burgess and is awaiting an outpatient heart catheterization. She reports that she had been fe eling more short of breath and not well over the past week saw her PCP and did not have improvement with steroids. Her oxygen levels were dropping down into the 70s. She denies any family history of heart disease. She quit smoking in 2005, denies any alcohol or drug use. She was positive for RSV. Troponin 0.036, 0.032, BNP 14,000. EKG shows sinus rhythm with incomplete right bundle branch block, moderate ST depression. She is feeling significantly better today. Echocardiogram was completed and preliminary report shows significant RV dilation correlating with pulmonary hypertension. REVIEW OF SYSTEMS: No fever or chills. No cough or expectoration. No diaphoresis. Patient denies headache, dizziness, blurred vision, double vision. Patient denies any stomach discomfort. No nausea, vomiting. No hematochezia. No hematemesis. Denies any black stools or blood in his stools. Denies dysuria or hematuria. No muscle weakness or numbness. No chest pain or pressure. + Shortness of breath. PHYSICAL EXAMINATION: This is a 74-year-old femaLE in no apparent distress at the time of my examination. HEENT: Head is atraumatic, normocephalic. Pupils are equal, round. Sclerae anicteric. Conjunctivae are clear. Mucous membranes of the mouth are moist. Neck is supple. There is no jugular venous distention. No carotid bruit is heard. CHEST EXAMINATION: Lungs with wheezes and diminished. No chest wall tenderness is noted on palpation or with deep breathing. HEART EXAMINATION: Heart regular rate and rhythm. S1, S2 heard. No murmurs, gallops or rub. ABDOMEN: Soft, nontender. Bowel sounds are heard. EXTREMITIES: 2+ peripheral pulses with no evidence of peripheral edema and no calf tenderness noted. NEUROLOGIC EXAMINATION: Patient is awake, alert and oriented x3. IMPRESSION AND PLAN: AAA 6 centimeters, awaiting repair COPD Pulmonary hypertension Carotid stenosis Dyspnea Positive RSV infection PLAN: We discussed echo findings with significant dilation of right ventricle. Symptoms may be more related to pulmonary hypertension and would recommend starting Revatio and monitoring response. She may benefit from pulmonary hypertension specialist evaluation. Would recommend right heart cath evaluation when she recovers from RSV infection, this can be done with her primary car diologist outpatient. Further recommendation pending clinical course. I am dictating on behalf of Dr. Joey Fontana's history/physical and assessment/plan. Past Medical History Past Medical History: COPD, Hyperlipidemia, Hypertension, Respiratory Disorder Additional Past Medical History / Comment(s): Aortic aneurysm. Pulmonary Hypertension History of Any Multi-Drug Resistant Organisms: None Reported Past Surgical History: Breast Surgery, Hysterectomy Additional Past Surgical History / Comment(s): Knee replacement. Wrist surgery. Cataract surgery Past Anesthesia/Blood Transfusion Reactions: No Reported Reaction Past Psychological History: Depression Smoking Status: Former smoker Past Alcohol Use History: None Reported Past Drug Use History: None Reported - Past Family History Mother Family Medical History: Cancer, Diabetes Mellitus Additional Family Medical History / Comment(s): from lung cancer Father Additional Family Medical History / Comment(s): from brain aneurysm Medications and Allergies Home Medications Medication Instructions Recorded Confirmed Type Aspirin EC [Ecotrin Low Dose] 81 mg PO DAILY 08/06/24 08/06/24 History Atorvastatin [Lipitor] 40 mg PO DAILY 08/06/24 08/06/24 History Cefdinir [Omnicef] 300 mg PO BID 08/06/24 08/06/24 History Cetirizine HCl [Zyrtec] 10 mg PO DAILY 08/06/24 08/06/24 History Dicyclomine [Bentyl] 10 mg PO TID 08/06/24 08/07/24 History Ergocalciferol [Vitamin D2 (1250 1,250 mcg PO MO 08/06/24 08/07/24 History Mcg = 11477 Iu)] Fluticasone/Umeclidin/Vilanter 1 puff INHALATION RT-DAILY 08/06/24 08/07/24 History [Trelegy Ellipta 200-62.5-25] Furosemide [Lasix] 20 mg PO DAILY 08/06/24 08/07/24 History Ipratropium-Albuterol Nebulize 3 ml INHALATION RT-QID PRN 08/06/24 08/07/24 History [Duoneb 0.5 mg-3 mg/3 ml Soln] Ipratropium/Albuter 20-100Mcg 1 puff INHALATION RT-QID 08/06/24 08/07/24 History [Combivent Respimat 20-100Mcg Inhaler] [place] 20mg 20 mg PO DAILY 08/06/24 08/06/24 History Nystatin 100,000 Unit/ml Susp 500,000 unit PO QID 08/06/24 08/06/24 History [Mycostatin Oral Susp] Sertraline [Zoloft] 50 mg PO DAILY 08/06/24 08/07/24 History amLODIPine [Norvasc] 2.5 mg PO DAILY 08/06/24 08/06/24 History predniSONE [Deltasone] See Taper PO DAILY 08/06/24 08/06/24 History Allergies Allergy/AdvReac Type Severity Reaction Status Date / Time [facility] Allergy Unknown Verified 08/06/24 17:04 tetracycline Allergy Unknown Verified 08/06/24 17:04 Physical Exam Vitals: Vital Signs Temp Pulse Pulse Pulse Resp BP BP 08/07/24 14:45 97.7 F 96 20 135/78 08/07/24 14:29 72 16 126/86 08/07/24 12:21 96 08/07/24 12:12 92 08/07/24 08:30 85 18 08/07/24 08:20 96 08/07/24 08:08 94 08/07/24 07:00 85 16 137/92 08/07/24 05:00 99 18 128/97 08/07/24 03:00 82 134/90 08/07/24 02:00 86 18 140/98 08/07/24 00:00 87 18 136/84 08/06/24 23:06 94 18 133/90 08/06/24 21:46 92 18 126/89 08/06/24 21:13 90 18 08/06/24 21:08 91 19 128/86 08/06/24 17:05 97.6 F 112 H 22 96/62 Pulse Ox 08/07/24 14:45 97 08/07/24 14:29 92 L 08/07/24 12:21 08/07/24 12:12 08/07/24 08:30 08/07/24 08:20 08/07/24 08:08 08/07/24 07:00 97 08/07/24 05:00 91 L 08/07/24 03:00 98 08/07/24 02:00 98 08/07/24 00:00 90 L 08/06/24 23:06 92 L 08/06/24 21:46 94 L 08/06/24 21:13 88 L 08/06/24 21:08 79 L 08/06/24 17:05 83 L Intake and Output 08/07/24 08/07/24 08/07/24 06:59 14:59 22:59 Other: Voiding Method Bedside Commode Weight 60.781 kg Results 08/07/24 08:14 08/07/24 08:14 Cardiac Enzymes 08/06/24 08/06/24 08/06/24 Range/Units 17:32 17:32 21:42 AST 45 H (14-36) U/L Troponin I 0.036 H* 0.032 (0.000-0.034) ng/mL Coagulation 08/06/24 Range/Units 17:32 PT 10.3 (10.0-12.5) sec APTT 21.8 L (22.0-30.0) sec CBC 08/06/24 08/07/24 Range/Units 17:32 08:14 WBC 15.9 H 11.4 H (3.8-10.6) k/uL RBC 5.56 H 4.92 (3.80-5.40) m/uL Hgb 16.3 H 14.8 (11.4-16.0) gm/dL Hct 50.9 H 44.3 (34.0-46.0) % Plt Count 285 241 (150-450) k/uL Comprehensive Metabolic Panel 08/06/24 08/07/24 Range/Units 17:32 08:14 Sodium 139 138 (137-145) mmol/L Potassium 3.3 L 4.2 (3.5-5.1) mmol/L Chloride 96 L 104 (98-107) mmol/L Carbon Dioxide 24 26 (22-30) mmol/L BUN 27 H 27 H (7-17) mg/dL Creatinine 1.00 1.01 (0.52-1.04) mg/dL Glucose 138 H 155 H (74-99) mg/dL Calcium 10.4 H 9.7 (8.4-10.2) mg/dL AST 45 H (14-36) U/L ALT 33 (4-34) U/L Alkaline Phosphatase 89 (38-126) U/L Total Protein 7.9 (6.3-8.2) g/dL Albumin 4.9 (3.5-5.0) g/dL Current Medications Generic Name Dose Route Start Last Admin Trade Name Freq PRN Reason Stop Dose Admin Acetaminophen 650 mg 08/06/24 19:58 08/07/24 06:20 Acetaminophen Tab 325 Mg Tab PO 650 mg Q4HR PRN Administration Fever and/or Mild Pain Albuterol/Ipratropium 3 ml 08/06/24 23:02 08/07/24 12:10 Ipratropium-Albuterol 3 Ml Neb INHALATION 3 ml RT-QID PRN Administration Shortness Of Breath Amlodipine Besylate 2.5 mg 08/07/24 09:00 08/07/24 08:24 Amlodipine 2.5 Mg Tab PO 2.5 mg DAILY ILA Administration Aspirin 81 mg 08/07/24 09:00 08/07/24 08:24 Aspirin 81 Mg PO 81 mg DAILY ILA Administration Atorvastatin Calcium 40 mg 08/07/24 09:00 08/07/24 08:24 Atorvastatin 40 Mg Tab PO 40 mg DAILY ILA Administration Budesonide/Formoterol Fumarate 2 puff 08/06/24 08:00 08/07/24 08:08 Symbicort 160-4.5 Mcg Inhaler INHALATION 2 puff RT-BID ILA Administration Enoxaparin Sodium 40 mg 08/07/24 09:00 08/07/24 08:24 Enoxaparin 40 Mg/0.4 Ml Syringe SQ 40 mg DAILY ILA Administration Loratadine 10 mg 08/07/24 09:00 08/07/24 08:24 Loratadine 10 Mg Tab PO 10 mg DAILY ILA Administration Methylprednisolone Sodium Succinate 60 mg 08/07/24 12:00 08/07/24 09:40 Methylprednisolone Sod Succi 125 Mg/2 Ml Vial IV 60 mg Q6HR ILA Administration Miscellaneous Information 1 each 08/06/24 19:58 Potassium Replacement Protocol 1 Each Misc MISCELLANE DAILY PRN Per Protocol Naloxone HCl 0.2 mg 08/06/24 19:58 Naloxone 0.4 Mg/Ml 1 Ml Vial IV Q2M PRN Opioid Reversal Nystatin 500,000 unit 08/06/24 23:15 08/07/24 15:10 Nystatin 100,000 Unit/Ml Susp 500,000 Unit/5 Ml Cup PO Not Given QID ILA Protocol Intake and Output 08/07/24 08/07/24 08/07/24 06:59 14:59 22:59 Other: Voiding Method Bedside Commode Weight 60.781 kg Patient Weight 08/08/24 06:59 Weight 60.781 kg 08/07/24 08:14 08/07/24 08:14
--- NOTE | 2024-08-07 16:01 | CA ---
Transthoracic Echo Report Name: Sally Richmond Age: 74 Gender: F : 1950 Exam Date: 08/07/2024 12:58 Exam Location: [facility] Ht (in): 65 Wt (lb): 134 Ordering Physician: Loan Edward MD Attending/Referring Phys: Tile Shader Re Richey RDCS Procedure CPT: Indications: LV function Cardiac Hx: Technical Quality: Fair Contrast 1: Total Dose (mL): Contrast 2: Total Dose (mL): MEASUREMENTS (Male / Female) Normal Values 2D ECHO LV Diastolic Diameter PLAX 4.0 cm 4.2 - 5.9 / 3.9 - 5.3 cm LV Systolic Diameter PLAX 2.2 cm IVS Diastolic Thickness 1.0 cm 0.6 - 1.0 / 0.6 - 0.9 cm LVPW Diastolic Thickness 1.2 cm 0.6 - 1.0 / 0.6 - 0.9 cm LV Relative Wall Thickness 0.6 RV Internal Dim ED PLAX 4.2 cm LVOT Diameter 1.7 cm LA Volume 26.9 cm??? 18 - 58 / 22 - 52 cm??? LA Volume Index 16.1 cm???/m??? 16 - 28 cm???/m??? DOPPLER AV Peak Velocity 190.9 cm/s AV Peak Gradient 14.6 mmHg AV Mean Velocity 137.7 cm/s AV Mean Gradient 8.6 mmHg AV Velocity Time Integral 32.0 cm LVOT Peak Velocity 64.6 cm/s LVOT Peak Gradient 1.7 mmHg LVOT Velocity Time Integral 8.8 cm LVOT Stroke Volume 19.3 cm??? LVOT Stroke Volume Index 11.5 ml/m??? LVOT Cardiac Index 967.5 cm???/min???m??? AV Area Cont Eq vti 0.6 cm??? AV Area Cont Eq pk 0.7 cm??? MV Area PHT 2.8 cm??? Mitral E Point Velocity 40.8 cm/s Mitral A Point Velocity 81.1 cm/s Mitral E to A Ratio 0.5 MV Deceleration Time 274.7 ms MV E' Velocity 3.4 cm/s Mitral E to MV E' Ratio 12.2 TR Peak Velocity 379.4 cm/s TR Peak Gradient 57.6 mmHg Right Ventricular Systolic Press 67.6 mmHg FINDINGS Left Ventricle Mildly increased left ventricular wall thickness. Left ventricular cavity size normal. Normal left ventricular systolic function with no obvious regional wall motion abnormalities. Left ventricular ejection fraction is estimated at 55 %. Grade 1 diastolic dysfunction. Flattened septum in diastole consistent with right ventricle volume overload. Right Ventricle Severe right ventricular dilatation. Hypokinetic right ventricular free wall. Moderate to severe pulmonary hypertension. Right ventricular systolic pressure estimated at 67 mm hg. Abnormal TAPSE @14mm Right Atrium Mild right atrial dilatation. Left Atrium Normal left atrial size. Mitral Valve Structurally normal mitral valve. Mitral valve thickened. Mild mitral regurgitation. Aortic Valve Trileaflet aortic valve. No aortic valve stenosis or regurgitation. Tricuspid Valve Structurally normal tricuspid valve. Moderate tricuspid regurgitation. Pulmonic Valve Structurally normal pulmonic valve. No pulmonic regurgitation. Pericardium No pericardial effusion. Aorta Normal size aortic root and proximal ascending aorta. CONCLUSIONS Mild increased left ventricular wall thickness Left ventricular ejection fraction 55% Severe right ventricular dilation with RV:LV ratio of 1.95 Mild to moderate right ventricular hypokinesis Pulmonary hypertension with RVSP 67. May be underestimated secondary to RV failure Mild mitral regurgitation Moderate tricuspid regurgitation No pericardial effusion Previewed by: Dr. Joey Fontana DO (Electronically Signed) Final Date: 07 August 2024 16:00
[2024-08-07] MEDS: SILDENAFIL 20 MG TAB PO SCH (17:12)
[2024-08-08 06:31] LABS: HCT 44.6 % (34.0-46.0); HGB 14.6 gm/dL (11.4-16.0); MCH 30.3 pg (25.0-35.0); MCHC 32.7 g/dL (31.0-37.0); MCV 92.5 fL (80.0-100.0); Mean Platelet Volume 8.4; Platelet Count 220 k/uL (150-450); RBC 4.82 m/uL (3.80-5.40); RDW 15.3 % (11.5-15.5); WBC 12.8 k/uL (3.8-10.6)
[2024-08-08 06:45] LABS: African American GFR (CKD) 72 (>60 ml/min/1.73 sqM); Anion Gap 10 mmol/L; Blood Urea Nitrogen 32 mg/dL (7-17); Calcium 9.4 mg/dL (8.4-10.2); Carbon Dioxide 27 mmol/L (22-30); Chloride 99 mmol/L (98-107); Glucose 153 mg/dL (74-99); Magnesium 2.2 mg/dL (1.6-2.3); Non-African American GFR(CKD) 63 (>60 ml/min/1.73 sqM); Phosphorus 3.9 mg/dL (2.5-4.5); Potassium 4.5 mmol/L (3.5-5.1); Sodium 136 mmol/L (137-145)
[2024-08-08] MEDS ORDERED: MD COMMUNICATION TO PHARMACY 1 EACH MISC PO PRN (08:59)
[2024-08-08] MEDS ORDERED: DEXTROSE 50% SYRINGE 50 ML IVP PRN ×2 (11:07)
[2024-08-08 11:35] LABS: Glucose,Whole Blood 155 mg/dL (70-110)
--- NOTE | 2024-08-08 12:07 | P.PN ---
Subjective Progress Note Date: 08/08/24 History of present illness: Patient is a pleasant 74-year-old female with significant past medical history of AAA approximately 6 cm awaiting repair, pulmonary hypertension, carotid stenosis, COPD on home oxygen for the past 2 years who presented with worsening shortness of breath. She does follow with poured wall foreman Dr. Estuardo Burgess and is awaiting an outpatient heart catheterization. She reports that she had been feeling more short of breath and not well over the past week saw her PCP and did not have improvement with steroids. Her oxygen levels were dropping down into the 70s. She denies any family history of heart disease. She quit smoking in 2005, denies any alcohol or drug use. She was positive for RSV. Troponin 0.036, 0.032, BNP 14,000. EKG shows sinus rhythm with incomplete right bundle branch block, moderate ST depression. She is feeling significantly better today. Echocardiogram was completed and preliminary report shows significant RV dilation correlating with pulmonary hypertension. Echocardiogram 08/07/2024 with EF 55%, severe right ventricular dilation with RV: LV ratio of 1.95, pulmonary hypertension with RVSP 67, may be underestimated secondary to RV failure, mild mitral regurgitation, moderate tricuspid regurgitation. 08/08/24 Patient is doing okay. She did have a nosebleed overnight and now feels stuffed up and has to breathe through her mouth. Denies any chest pain or pressure. WBC 12.8, hemoglobin 14.6, sodium 137, creatinine 0.92. PHYSICAL EXAMINATION: This is a 74-year-old female in no apparent distress at the time of my examination. HEENT: Head is atraumatic, normocephalic. Pupils are equal, round. Sclerae anicteric. Conjunctivae are clear. Mucous membranes of the mouth are moist. Neck is supple. There is no jugular venous distention. No carotid bruit is heard. CHEST EXAMINATION: Lungs with wheezes and diminished. No chest wall tenderness is noted on palpation or with deep breathing. HEART EXAMINATION: Heart regular rate and rhythm. S1, S2 heard. No murmurs, gallops or rub. ABDOMEN: Soft, nontender. Bowel sounds are heard. EXTREMITIES: 2+ peripheral pulses with no evidence of peripheral edema and no calf tenderness noted. NEUROLOGIC EXAMINATION: Patient is awake, alert and oriented x3. IMPRESSION AND PLAN: AAA 6 centimeters, awaiting repair COPD Pulmonary hypertension Carotid stenosis Dyspnea Positive RSV infection PLAN: We discussed echo findings with significant dilation of right ventricle. Symptoms may be more related to pulmonary hypertension. Continue with Revatio and monitoring response. She may benefit from pulmonary hypertension specialist evaluation outpatient. Would recommend right heart cath evaluation when she recovers from RSV infection, this can be done with her primary poured wall foreman outpatient. Further recommendation pending clinical course. I am dictating on behalf of Dr. Joey Fontana's history/physical and assessment/plan. Objective - Vital Signs Vital signs: Vital Signs Temp 98.3 F 08/07/24 21:19 Pulse 79 08/08/24 03:51 Resp 16 08/08/24 03:51 BP 108/70 08/08/24 03:51 Pulse Ox 95 08/08/24 03:51 FiO2 Intake & Output 08/07/24 08/08/24 08/08/24 18:59 06:59 18:59 Intake Total 118 480 Balance 118 480 Weight 60.781 kg 57 kg Intake: Oral 118 480 Other: Voiding Method Bedside Commode Bedside Commode # Voids 1 - Labs CBC & Chem 7: 08/08/24 05:17 08/08/24 05:17 Labs: Abnormal Lab Results - Last 24 Hours (Table) 08/07/24 08/07/24 08/08/24 Range/Units 08:14 08:14 05:17 WBC 11.4 H 12.8 H (3.8-10.6) k/uL RDW 15.8 H (11.5-15.5) % Neutrophils # 10.3 H (1.3-7.7) k/uL Lymphocytes # 0.6 L (1.0-4.8) k/uL Sodium (137-145) mmol/L BUN 27 H (7-17) mg/dL Glucose 155 H (74-99) mg/dL 08/08/24 Range/Units 05:17 WBC (3.8-10.6) k/uL RDW (11.5-15.5) % Neutrophils # (1.3-7.7) k/uL Lymphocytes # (1.0-4.8) k/uL Sodium 136 L (137-145) mmol/L BUN 32 H (7-17) mg/dL Glucose 153 H (74-99) mg/dL
--- NOTE | 2024-08-08 12:08 | P.PN ---
Subjective Progress Note Date: 08/08/24 Pt reports improvement overall, but still dyspneic requiring 7-8 L NC. Reports that she's usually on lasix daily, but has not received here. Gen: In NAD, non-toxic HEENT: normocephalic, atraumatic, hearing acuity is intant, mucous membranes moist CVS: perfusing all extremities well, no pitting edema, Respiratory: symmetric chest expansion, no accessory muscle use, GI: soft, NTTP, ND, : no suprapubic tenderness, no CVA tenderness MSK/Derm: no rashes, cyanosis Neuro: CN II-XII intact, no motor weakness, Psych: cooperative, euthymic mood, judgment and insight is intact Hospital course: 74-year-old with COPD on home O2 at 4 L, pulmonary hypertension, and abdominal aortic aneurysm who presents with shortness of breath. In the ER ultimately found to have acute on chronic hypoxic respiratory failure with an O2 sat of 83% on home 4 L. Found to be RSV positive. Initial laboratory analysis also remarkable for white blood cell count of 15.9, potassium 3.3, lactic acid 5, calcium 10.4, and troponin of 0.036. X-ray consistent with atypical pneumonia versus pulmonary edema. Required increased to 10 L nasal cannula. Started on bronchodilators, steroids, and nystatin. Pulmonary consulted. Assessment/Plan: Acute on chronic hypoxic respiratory failure currently on 8 L with home O2 of 4 L -O2 sat of 83% on home O2 of 4 L in the ER RSV pneumonia Acute exacerbation of COPD Thrush -Solu-Medrol 60 every 6 IV, DuoNeb times daily as needed, continue with Symbicort daily - nystatin swish and swallow. Procalcitonin 0.9. Doubt bacterial pneumonia agree with discontinuation of ceftriaxone and Zithromax Group 3 pulmonary hypertension -Cardiology and pulmonology on consult -Cardiology considering trial of Revatio -Trial of Lasix 20 mg IV once today -Oxygen as required, down titrated as able HTN -Norvasc 2.5 mg DVT prophylaxis: Lovenox Anticipated discharge date: Pending clinical course Anticipated discharge place: Pending clinical course This dictation was prepared using [employer] voice recognition software. Though every attempt is made to correct errors during dictation some may still exist. Objective - Vital Signs Vital signs: Vital Signs Temp 97.8 F 08/08/24 08:54 Pulse 88 08/08/24 11:44 Resp 16 08/08/24 08:54 BP 114/75 08/08/24 08:54 Pulse Ox 92 L 08/08/24 08:54 FiO2 Intake & Output 08/07/24 08/08/24 08/08/24 18:59 06:59 18:59 Intake Total 118 480 10 Balance 118 480 10 Weight 60.781 kg 57 kg Intake: IV 10 Invasive Line 1 10 Oral 118 480 Other: Voiding Method Bedside Commode Bedside Commode Bedside Commode # Voids 1 1 - Labs CBC & Chem 7: 08/08/24 05:17 08/08/24 05:17 Labs: Abnormal Lab Results - Last 24 Hours (Table) 08/08/24 08/08/24 08/08/24 Range/Units 05:17 05:17 11:34 WBC 12.8 H (3.8-10.6) k/uL Sodium 136 L (137-145) mmol/L BUN 32 H (7-17) mg/dL Glucose 153 H (74-99) mg/dL POC Glucose (mg/dL) 155 H (70-110) mg/dL
[2024-08-08] MEDS: INSULIN ASPART (NovoLOG) 100 UNIT/ML VIAL SQ SCH (12:16)
[2024-08-08] MEDS: FUROSEMIDE 10 MG/ML 2 ML VIAL IV ONE (12:16)
--- NOTE | 2024-08-08 12:41 | P.PN ---
Subjective Progress Note Date: 08/08/24 This is a 74-year-old female patient with advanced COPD who is coming into the hospital with increased dyspnea cough chest congestion and wheezing and the patient tested positive for RSV. She is currently on 7 L of oxygen by nasal cannula. Chest x-ray in the emergency department showed mild increase in interstitial markings bilaterally without any areas of consolidation. Hemoglobin is at 14 with a white cell count of 11. Initial blood gas showed a pH of 7.5 with a pCO2 of 35 and pO2 of 58 and this was done in the emergency department. BUN is 27 with a creatinine of 1.01 and a sodium levels at 138. Lactic acid level dropped from 4 down to 0.9. Procalcitonin level is at 0.09. The patient accordingly was hospitalized for an acute RSV infection and secondary COPD exacerbation. No altered mentation for now. She is awake and alert and communicating In terms of her COPD, the patient has been COPD and the patient has been oxygen dependent. She carries more than [id number] smoking history. She typically wears oxygen at 3 and half liters per minute nasal cannula. She has significant limitation exercise capacity and the patient gets short of breath while walking around 20 to 25 feet. She has been maintained on Trelegy Ellipta 1 puff a day and prednisone 10 mg p.o. daily. She was tried to taper the steroids and she was unable to do so due to worsening shortness of breath. No orthopnea. No leg edema. Most recent CAT scan of the chest from 07/15/2023 showed moderate to diffuse emphysematous changes bilaterally and some scattered subfibrotic changes in the lung bases. The patient is also known to have a large infrarenal abdominal attic aneurysm measuring 6 cm in size and the patient is being considered for endovascular stent grafting. Other comorbidities include seco ndary pulmonary hypertension with preserved LV function, group 3 pulmonary hypertension, asymptomatic carotid artery disease 70% on the left and hypertension and hyperlipidemia. 08/08/2024, the patient remains congested bronchospastic and wheezy and she continues to require higher oxygen flow at 8 L/min nasal cannula. No new complaints for now. She was hospitalized yesterday and the patient is currently being treated with DuoNeb updrafts, IV Solu-Medrol. She was also able to utilize her Trelegy Ellipta from home. Blood work from today shows a white cell count of 12.8 with a hemoglobin 14.6 and a platelet count of 220. BUN 32 with a creatinine of 0.9 and a sodium level is at 136. No change in mental status. Hemodynamically stable. Objective - Vital Signs Vital signs: Vital Signs Temp 97.8 F 08/08/24 08:54 Pulse 101 H 08/08/24 08:54 Resp 16 08/08/24 08:54 BP 114/75 08/08/24 08:54 Pulse Ox 92 L 08/08/24 08:54 FiO2 Intake & Output 08/07/24 08/08/24 08/08/24 18:59 06:59 18:59 Intake Total 118 480 10 Balance 118 480 10 Weight 60.781 kg 57 kg Intake: IV 10 Invasive Line 1 10 Oral 118 480 Other: Voiding Method Bedside Commode Bedside Commode Bedside Commode # Voids 1 1 - Exam General: nontoxic, no distress, appears at stated age, currently on 7 L of oxygen by nasal cannula. Able to communicate. Derm: warm, dry, intact Head: atraumatic, normocephalic, symmetric Eyes: anicteric sclera Mouth: no lip lesion, mucus membranes moist Cardiovascular: S1 S2 reg, no murmur Lungs: Mild inspiratory wheezing noted, crackles noted in the lung bases, breath sounds are extensively diminished bilaterally. Abdominal: soft, non-tender to palpation, nondistended Extremities: positive mild peripheral cyanosis noted on nail beds, or pedal edema. Neuro: Alert, Oriented to person, time and place, Gross neurological examination did not reveal any focal deficits. Cranial nerves II to XII grossly intact. Bilateral upper and lower extremity muscle strength intact and sensation intact. Psych: well appearing, appropriate affect - Labs CBC & Chem 7: 08/08/24 05:17 08/08/24 05:17 Labs: Abnormal Lab Results - Last 24 Hours (Table) 08/08/24 08/08/24 Range/Units 05:17 05:17 WBC 12.8 H (3.8-10.6) k/uL Sodium 136 L (137-145) mmol/L BUN 32 H (7-17) mg/dL Glucose 153 H (74-99) mg/dL Assessment and Plan Plan: Acute exacerbation of COPD secondary to RSV infection. Patient is hypoxic. No signs of any hypercapnic respiratory failure or CO2 narcosis. Acute RSV tracheobronchitis, nonvaccinated Acute on chronic hypoxic misha failure. Typically the patient is on 3 and half liters of oxygen by nasal cannula, currently on 8 L O2 nasal cannula secondary to above severe chronic obstructive. The patient's pulmonary function test shows essentially preserved spirometry. Nevertheless, diffusion capacity is down to 28% of predicted and this explains the patient's exertional dyspnea and hypoxemia. She has limited fibrosis in the lung bases bilaterally. Previous COPD exacerbations requiring hospitalizations, none since Jun 2022. Currently on Trelegy Ellipta one inhalation a day, and the patient is taking prednisone 10 mg as maintenance and albuterol PRN Albuterol nebs, typically using around 2-3 times a day,Continue using Combivent on an as-needed basis anterior mediastinal lymphadenopathy, The most recent CAT scan of the chest that was done on 07/15/2023 showed no evidence of any significant mediastinal lymphadenopathy. No evidence of any malignancy at this point in time. No pulmonary nodules or lesions. history of depression secondary pulmonary hypertension. The patient's LV function is preserved and the patient's most recent echocardiogram from June 2022 showed a PA pressure of 49 mmHg. This is likely group 3 pulmonary hypertension arteriosclerosis of carotid artery, Asymptomatic 70% left internal carotid artery stenosis, currently on aspirin. Hyperlipidemia abdominal aortic aneurysm, 6 cm infrarenal abdominal aortic aneurysm with a intra aortic thrombus. No dissection. Awaiting endovascular stent grafting to be done by vascular surgery. Plan Clinically unchanged compared to yesterday will continue same management for now. Titrate oxygen flow to maintain saturation above 90%, currently on 8 L O2 nasal cannula DuoNeb nebulized treatments [id number] IV Solu-Medrol 60 mg every 6 hours Allowed the patient to utilize Trelegy Ellipta from home Resume home medications Procalcitonin level is not elevated Continue supportive care Will continue to follow
[2024-08-08 16:31] LABS: Glucose,Whole Blood 198 mg/dL (70-110)
[2024-08-08 20:18] LABS: Glucose,Whole Blood 193 mg/dL (70-110)
[2024-08-09 06:16] LABS: Glucose,Whole Blood 156 mg/dL (70-110)
[2024-08-09 06:51] LABS: Basophils % (A) 0 %; Eosinophils % (A) 0 %; HCT 47.7 % (34.0-46.0); HGB 15.2 gm/dL (11.4-16.0); Hypochromasia Slight; Lymphocytes # (A) 0.7 k/uL (1.0-4.8); Lymphocytes % (A) 4 %; MCH 29.5 pg (25.0-35.0); MCHC 31.9 g/dL (31.0-37.0); MCV 92.6 fL (80.0-100.0); Mean Platelet Volume 8.5; Monocytes # (A) 0.4 k/uL (0-1.0); Monocytes % (A) 3 %; Neutrophils # (A) 14.7 k/uL (1.3-7.7); Neutrophils % (A) 93 %; Platelet Count 236 k/uL (150-450); RBC 5.15 m/uL (3.80-5.40); RDW 15.3 % (11.5-15.5); WBC 15.9 k/uL (3.8-10.6)
[2024-08-09 07:03] LABS: African American GFR (CKD) 64 (>60 ml/min/1.73 sqM); Anion Gap 8 mmol/L; Blood Urea Nitrogen 33 mg/dL (7-17); Calcium 9.9 mg/dL (8.4-10.2); Carbon Dioxide 29 mmol/L (22-30); Chloride 100 mmol/L (98-107); Glucose 161 mg/dL (74-99); Magnesium 2.3 mg/dL (1.6-2.3); Non-African American GFR(CKD) 55 (>60 ml/min/1.73 sqM); Potassium 4.8 mmol/L (3.5-5.1); Sodium 137 mmol/L (137-145)
[2024-08-09] MEDS: TRELEGY ELLIPTA INHALER INHALATION SCH (08:10)
[2024-08-09] MEDS ORDERED: MD COMMUNICATION TO PHARMACY 1 EACH MISC PO SCH (09:00)
[2024-08-09 11:29] LABS: Glucose,Whole Blood 235 mg/dL (70-110)
[2024-08-09] MEDS: DICYCLOMINE 10 MG CAP PO SCH (11:34)
--- NOTE | 2024-08-09 12:13 | P.PN ---
Subjective Progress Note Date: 08/09/24 Pt still requiring 7-8 L NC. She is short of breath with minimal exertion at this point, feels worse Gen: In NAD, non-toxic HEENT: normocephalic, atraumatic, hearing acuity is intant, mucous membranes rain st CVS: perfusing all extremities well, no pitting edema, Respiratory: symmetric chest expansion, no accessory muscle use, GI: soft, NTTP, ND, : no suprapubic tenderness, no CVA tenderness MSK/Derm: no rashes, cyanosis Neuro: CN II-XII intact, no motor weakness, Psych: cooperative, euthymic mood, judgment and insight is intact Hospital course: 74-year-old with COPD on home O2 at 4 L, pulmonary hypertension, and abdominal aortic aneurysm who presents with shortness of breath. In the ER ultimately found to have acute on chronic hypoxic respiratory failure with an O2 sat of 83% on home 4 L. Found to be RSV positive. Initial laboratory analysis also remarkable for white blood cell count of 15.9, potassium 3.3, lactic acid 5, calcium 10.4, and troponin of 0.036. X-ray consistent with atypical pneumonia versus pulmonary edema. Required increased to 10 L nasal cannula. Started on bronchodilators, steroids, and nystatin. Pulmonary consulted. Assessment/Plan: Acute on chronic hypoxic respiratory failure currently on 8 L with home O2 of 4 L -O2 sat of 83% on home O2 of 4 L in the ER RSV pneumonia Acute exacerbation of COPD Thrush -Solu-Medrol 60 every 6 IV, DuoNeb times daily as needed, continue with Symbicort daily - nystatin swish and swallow Group 3 pulmonary hypertension -Cardiology and pulmonology on consult -Cardiology initiated revatio 20mg TID -Holding lasix, can consider an additional 20mg IV dose if no further improvement with revatio -Oxygen as required, down titrated as able HTN -Norvasc 2.5 mg DVT prophylaxis: Lovenox Anticipated discharge date: Pending clinical course Anticipated discharge place: Pending clinical course This dictation was prepared using [employer] voice recognition software. Though every attempt is made to correct errors during dictation some may still exist. Objective - Vital Signs Vital signs: Vital Signs Temp 98.0 F 08/09/24 11:39 Pulse 100 08/09/24 11:48 Resp 22 08/09/24 11:39 BP 114/80 08/09/24 11:39 Pulse Ox 94 L 08/09/24 11:39 FiO2 Intake & Output 08/08/24 08/09/24 08/09/24 18:59 06:59 18:59 Intake Total 374 770 20 Output Total 1000 Balance -626 770 20 Weight 54.5 kg Intake: IV 20 20 20 Invasive Line 1 20 20 20 Oral 354 750 Output: Urine 1000 Other: Voiding Method Bedside Commode Bedside Commode # Voids 1 1 - Labs CBC & Chem 7: 08/09/24 05:57 08/09/24 05:57 Labs: Abnormal Lab Results - Last 24 Hours (Table) 08/08/24 08/08/24 08/09/24 Range/Units 16:30 20:16 05:57 WBC (3.8-10.6) k/uL Hct (34.0-46.0) % Neutrophils # (1.3-7.7) k/uL Lymphocytes # (1.0-4.8) k/uL BUN (7-17) mg/dL Glucose (74-99) mg/dL POC Glucose (mg/dL) 198 H 193 H (70-110) mg/dL Hemoglobin A1c 6.8 H (<=6.0) % 08/09/24 08/09/24 08/09/24 Range/Units 05:57 05:57 06:16 WBC 15.9 H (3.8-10.6) k/uL Hct 47.7 H (34.0-46.0) % Neutrophils # 14.7 H (1.3-7.7) k/uL Lymphocytes # 0.7 L (1.0-4.8) k/uL BUN 33 H (7-17) mg/dL Glucose 161 H (74-99) mg/dL POC Glucose (mg/dL) 156 H (70-110) mg/dL Hemoglobin A1c (<=6.0) % 08/09/24 Range/Units 11:28 WBC (3.8-10.6) k/uL Hct (34.0-46.0) % Neutrophils # (1.3-7.7) k/uL Lymphocytes # (1.0-4.8) k/uL BUN (7-17) mg/dL Glucose (74-99) mg/dL POC Glucose (mg/dL) 235 H (70-110) mg/dL Hemoglobin A1c (<=6.0) %
--- NOTE | 2024-08-09 14:55 | P.PN ---
Subjective Progress Note Date: 08/09/24 History of present illness: Patient is a pleasant 74-year-old female with significant past medical history of AAA approximately 6 cm awaiting repair, pulmonary hypertension, carotid stenosis, COPD on home oxygen for the past 2 years who presented with worsening shortness of breath. She does follow with t[facility] ca[facility] Dr. Estuardo Burgess and is awaiting an outpatient heart catheterization. She reports that she had been feeling more short of breath and not well over the past week saw her PCP and did not have improvement with steroids. Her oxygen levels were dropping down into the 70s. She denies any family history of heart disease. She quit smoking in 2005, denies any alcohol or drug use. She was positive for RSV. Troponin 0.036, 0.032, BNP 14,000. EKG shows sinus rhythm with incomplete right bundle branch block, moderate ST depression. She is feeling significantly better today. Echocardiogram was completed and preliminary report shows significant RV dilation correlating with pulmonary hypertension. Echocardiogram 08/07/2024 with EF 55%, severe right ventricular dilation with RV: LV ratio of 1.95, pulmonary hypertension with RVSP 67, may be underestimated secondary to RV failure, mild mitral regurgitation, moderate tricuspid regurgitation. 08/08/24 Patient is doing okay. She did have a nosebleed overnight and now feels stuffed up and has to breathe through her mouth. Denies any chest pain or pressure. WBC 12.8, hemoglobin 14.6, sodium 137, creatinine 0.92. 08/09/2024 Patient seen and examined. Patient remains in isolation for RSV. No complaints of chest pain. She continues to have frequent coughing. Blood pressure 114/80, heart rate 103, pulse ox 94% on 8 L nasal cannula. Repeat blood work reveals hemoglobin 14.2, WBC 15.9. Creatinine 1.02, potassium 4.8. Hemoglobin A1c 6.8. PHYSICAL EXAMINATION: This is a 74-year-old female in no apparent distress at the time of my examination. HEENT: Head is atraumatic, normocephalic. Pupils are equal, round. Sclerae anicteric. Conjunctivae are clear. Mucous membranes of the mouth are moist. Neck is supple. There is no jugular venous distention. No carotid bruit is heard. CHEST EXAMINATION: Lungs with wheezes and diminished. No chest wall tenderness is noted on palpation or with deep breathing. HEART EXAMINATION: Heart regular rate and rhythm. S1, S2 heard. No murmurs, gallops or rub. ABDOMEN: Soft, nontender. Bowel sounds are heard. EXTREMITIES: 2+ peripheral pulses with no evidence of peripheral edema and no calf tenderness noted. NEUROLOGIC EXAMINATION: Patient is awake, alert and oriented x3. IMPRESSION AND PLAN: AAA 6 centimeters, awaiting repair COPD Pulmonary hypertension Carotid stenosis Dyspnea Positive RSV infection PLAN: Symptoms may be more related to pulmonary hypertension. Continue with Revatio and monitoring response. She may benefit from pulmonary hypertension specialist evaluation outpatient. Would recommend right heart cath evaluation when she recovers from RSV infection, this can be done with her primary [facility] outpatient. No changes in medications made today Further recommendation pending clinical course. Nurse practitioner note has been reviewed, I agree with documented findings and plan of care. Patient was seen and examined. Objective - Vital Signs Vital signs: Vital Signs Temp 98.1 F 08/09/24 08:00 Pulse 96 08/09/24 08:25 Resp 20 08/09/24 08:00 BP 125/82 08/09/24 08:00 Pulse Ox 92 L 08/09/24 08:11 FiO2 Intake & Output 08/08/24 08/09/24 08/09/24 18:59 06:59 18:59 Intake Total 374 770 10 Output Total 1000 Balance -626 770 10 Weight 54.5 kg Intake: IV 20 20 10 Invasive Line 1 20 20 10 Oral 354 750 Output: Urine 1000 Other: Voiding Method Bedside Commode Bedside Commode # Voids 1 1 - Labs CBC & Chem 7: 08/09/24 05:57 08/09/24 05:57 Labs: Abnormal Lab Results - Last 24 Hours (Table) 08/08/24 08/08/24 08/08/24 Range/Units 11:34 16:30 20:16 WBC (3.8-10.6) k/uL Hct (34.0-46.0) % Neutrophils # (1.3-7.7) k/uL Lymphocytes # (1.0-4.8) k/uL BUN (7-17) mg/dL Glucose (74-99) mg/dL POC Glucose (mg/dL) 155 H 198 H 193 H (70-110) mg/dL 08/09/24 08/09/24 08/09/24 Range/Units 05:57 05:57 06:16 WBC 15.9 H (3.8-10.6) k/uL Hct 47.7 H (34.0-46.0) % Neutrophils # 14.7 H (1.3-7.7) k/uL Lymphocytes # 0.7 L (1.0-4.8) k/uL BUN 33 H (7-17) mg/dL Glucose 161 H (74-99) mg/dL POC Glucose (mg/dL) 156 H (70-110) mg/dL
[2024-08-09 16:24] LABS: Glucose,Whole Blood 174 mg/dL (70-110)
--- NOTE | 2024-08-09 16:34 | P.PN ---
Subjective Progress Note Date: 08/09/24 Principal diagnosis: Acute RSV tracheobronchitis and acute COPD exacerbation with acute hypoxic respiratory failure This is a 74-year-old female patient with advanced COPD who is coming into the hospital with increased dyspnea cough chest congestion and wheezing and the patient tested positive for RSV. She is currently on 7 L of oxygen by nasal cannula. Chest x-ray in the emergency department showed mild increase in interstitial markings bilaterally without any areas of consolidation. Hemoglobin is at 14 with a white cell count of 11. Initial blood gas showed a pH of 7.5 with a pCO2 of 35 and pO2 of 58 and this was done in the emergency department. BUN is 27 with a creatinine of 1.01 and a sodium levels at 138. Lactic acid level dropped from 4 down to 0.9. Procalcitonin level is at 0.09. The patient accordingly was hospitalized for an acute RSV infection and secondary COPD exacerbation. No altered mentation for now. She is awake and alert and communicating In terms of her COPD, the patient has been COPD and the patient has been oxygen dependent. She carries more than [id number] smoking history. She typically wears oxygen at 3 and half liters per minute nasal cannula. She has significant limitation exercise capacity and the patient gets short of breath while walking around 20 to 25 feet. She has been maintained on Trelegy Ellipta 1 puff a day and prednisone 10 mg p.o. daily. She was tried to taper the steroids and she was unable to do so due to worsening shortness of breath. No orthopnea. No leg edema. Most recent CAT scan of the chest from 07/15/2023 showed moderate to diffuse emphysematous changes bilaterally and some scattered subfibrotic changes in the lung bases. The patient is also known to have a large infrarenal abdomin al attic aneurysm measuring 6 cm in size and the patient is being considered for endovascular stent grafting. Other comorbidities include secondary pulmonary hypertension with preserved LV function, group 3 pulmonary hypertension, asymptomatic carotid artery disease 70% on the left and hypertension and hyperlipidemia. 08/08/2024, the patient remains congested bronchospastic and wheezy and she con tinues to require higher oxygen flow at 8 L/min nasal cannula. No new complaints for now. She was hospitalized yesterday and the patient is currently being treated with Bridgette luna, IV Solu-Medrol. She was also able to utilize her Trelegy Ellipta from home. Blood work from today shows a white cell count of 12.8 with a hemoglobin 14.6 and a platelet count of 220. BUN 32 with a creatinine of 0.9 and a sodium level is at 136. No change in mental status. Hemodynamically stable. Seen today on 08/09/2024, patient is a bit better, less bronchospastic less wheezing on physical examination however the patient is still requiring 8 L high flow nasal cannula. Patient was transitioned to 5 L nasal cannula and was able to maintain O2 sat of 90%. Patient is receiving bronchodilators steroids, she has underlying COPD and now she has RSV tracheobronchitis which seems to be flaring up her COPD. Exacerbating her COPD remains on bronchodilators and on methylprednisolone as well as DuoNeb updrafts, definite improvement based on physical examination but the patient feels slightly improved. Does not seem to be interested in getting discharged home anytime soon.Remains on bronchodilators WBC count is 15.9 hemoglobin is 15.2 electrolytes are normal renal profile is normal x-ray on admission showed mild increased pulmonary vascular markings prominence of the pulmonary vasculature, doubt pneumonia. Objective - Vital Signs Vital signs: Vital Signs Temp 98.0 F 08/09/24 11:39 Pulse 100 08/09/24 16:23 Resp 18 08/09/24 15:46 BP 118/88 08/09/24 15:46 Pulse Ox 90 L 08/09/24 15:46 FiO2 Intake & Output 08/08/24 08/09/24 08/09/24 18:59 06:59 18:59 Intake Total 374 770 20 Output Total 1000 Balance -626 770 20 Weight 54.5 kg Intake: IV 20 20 20 Invasive Line 1 20 20 20 Oral 354 750 Output: Urine 1000 Other: Voiding Method Bedside Commode Bedside Commode # Voids 1 1 - Exam General: nontoxic, revealed a 74-year-old female in no distress however she is currently on 8 L high flow nasal cannula Derm: warm, dry, intact Head: atraumatic, normocephalic, symmetric Eyes: anicteric sclera Mouth: no lip lesion, mucus membranes moist Cardiovascular: S1 S2 reg, no murmur Lungs: Minimal wheezing on forced expiratory maneuver Abdominal: soft, non-tender to palpation, nondistended Extremities: positive mild peripheral cyanosis noted on nail beds, or pedal edema. Neuro: Alert, Oriented to person, time and place, Gross neurological examination did not reveal any focal deficits. Cranial nerves II to XII grossly intact. Bilateral upper and lower extremity muscle strength intact and sensation intact. Psych: well appearing, appropriate affect - Labs CBC & Chem 7: 08/09/24 05:57 08/09/24 05:57 Labs: Abnormal Lab Results - Last 24 Hours (Table) 08/08/24 08/08/24 08/09/24 Range/Units 16:30 20:16 05:57 WBC (3.8-10.6) k/uL Hct (34.0-46.0) % Neutrophils # (1.3-7.7) k/uL Lymphocytes # (1.0-4.8) k/uL BUN (7-17) mg/dL Glucose (74-99) mg/dL POC Glucose (mg/dL) 198 H 193 H (70-110) mg/dL Hemoglobin A1c 6.8 H (<=6.0) % 08/09/24 08/09/24 08/09/24 Range/Units 05:57 05:57 06:16 WBC 15.9 H (3.8-10.6) k/uL Hct 47.7 H (34.0-46.0) % Neutrophils # 14.7 H (1.3-7.7) k/uL Lymphocytes # 0.7 L (1.0-4.8) k/uL BUN 33 H (7-17) mg/dL Glucose 161 H (74-99) mg/dL POC Glucose (mg/dL) 156 H (70-110) mg/dL Hemoglobin A1c (<=6.0) % 08/09/24 08/09/24 Range/Units 11:28 16:23 WBC (3.8-10.6) k/uL Hct (34.0-46.0) % Neutrophils # (1.3-7.7) k/uL Lymphocytes # (1.0-4.8) k/uL BUN (7-17) mg/dL Glucose (74-99) mg/dL POC Glucose (mg/dL) 235 H 174 H (70-110) mg/dL Hemoglobin A1c (<=6.0) % Assessment and Plan Assessment: Impression: Acute hypoxic respiratory failure Acute COPD exacerbation Acute RSV tracheobronchitis History of depression History of pulmonary hypertension PA pressure of 49 patient has likely group 3 pulmonary hypertension History of underlying carotid artery disease and 70% left internal carotid artery stenosis Dyslipidemia Abdominal aortic aneurysm/infrarenal, being followed by vascular surgery for possible endovascular stent grafting Recommendation: Continue present bronch course of bronchodilators/DuoNeb Continue IV Solu-Medrol Continue to titrate oxygen accordingly she went down from 8-5 earlier today Resume home meds Procalcitonin level is negative not quite ready for discharge planning at this point Will address for possible discharge planning in the next 24 to 48 hours. Will continue to follow Time with Patient: Less than 30
[2024-08-09] MEDS: SYMBICORT 160-4.5 MCG INHALER INHALATION SCH (20:18)
[2024-08-09 20:21] LABS: Glucose,Whole Blood 257 mg/dL (70-110)
[2024-08-10 06:10] LABS: Glucose,Whole Blood 169 mg/dL (70-110)
[2024-08-10 08:03] LABS: Basophils % (A) 0 %; Eosinophils % (A) 0 %; HCT 46.5 % (34.0-46.0); HGB 14.6 gm/dL (11.4-16.0); Hypochromasia Slight; Lymphocytes # (A) 0.6 k/uL (1.0-4.8); Lymphocytes % (A) 3 %; MCH 29.2 pg (25.0-35.0); MCHC 31.4 g/dL (31.0-37.0); Mean Platelet Volume 8.5; Monocytes # (A) 0.7 k/uL (0-1.0); Monocytes % (A) 4 %; Neutrophils # (A) 15.8 k/uL (1.3-7.7); Neutrophils % (A) 92 %; Platelet Count 270 k/uL (150-450); RDW 15.2 % (11.5-15.5); WBC 17.1 k/uL (3.8-10.6)
[2024-08-10 08:49] LABS: African American GFR (CKD) 73 (>60 ml/min/1.73 sqM); Anion Gap 9 mmol/L; Blood Urea Nitrogen 33 mg/dL (7-17); Calcium 9.5 mg/dL (8.4-10.2); Carbon Dioxide 25 mmol/L (22-30); Chloride 103 mmol/L (98-107); Glucose 161 mg/dL (74-99); Magnesium 2.3 mg/dL (1.6-2.3); Non-African American GFR(CKD) 63 (>60 ml/min/1.73 sqM); Potassium 4.3 mmol/L (3.5-5.1); Sodium 137 mmol/L (137-145)
[2024-08-10 11:16] LABS: Glucose,Whole Blood 160 mg/dL (70-110)
--- NOTE | 2024-08-10 11:31 | P.PN ---
Subjective Progress Note Date: 08/10/24 History of present illness: Patient is a pleasant 74-year-old female with significant past medical history of AAA approximately 6 cm awaiting repair, pulmonary hypertension, carotid stenosis, COPD on home oxygen for the past 2 years who presented with worsening shortness of breath. She does follow with research dairy farm supervisor Dr. Estuardo Burgess and is awaiting an outpatient heart catheterization. She reports that she had been feeling more short of breath and not well over the past week saw her PCP and did not have improvement with steroids. Her oxygen levels were dropping down into the 70s. She denies any family history of heart disease. She quit smoking in 2005, denies any alcohol or drug use. She was positive for RSV. Troponin 0.036, 0.032, BNP 14,000. EKG shows sinus rhythm with incomplete right bundle branch block, moderate ST depression. She is feeling significantly better today. Echocardiogram was completed and preliminary report shows significant RV dilation correlating with pulmonary hypertension. Echocardiogram 08/07/2024 with EF 55%, severe right ventricular dilation with RV: LV ratio of 1.95, pulmonary hypertension with RVSP 67, may be underestimated secondary to RV failure, mild mitral regurgitation, moderate tricuspid regurgitation. 08/08/24 Patient is doing okay. She did have a nosebleed overnight and now feels stuffed up and has to breathe through her mouth. Denies any chest pain or pressure. WBC 12.8, hemoglobin 14.6, sodium 137, creatinine 0.92. 08/09/2024 Patient seen and examined. Patient remains in isolation for RSV. No complaints of chest pain. She continues to have frequent coughing. Blood pressure 114/80, heart rate 103, pulse ox 94% on 8 L nasal cannula. Repeat blood work reveals hemoglobin 14.2, WBC 15.9. Creatinine 1.02, potassium 4.8. Hemoglobin A1c 6.8. 08/10/2024 Patient seen and examined. Blood pressure 124/80, heart rate 100, pulse ox 90% on 7 L high flow nasal cannula. Patient remains in isolation for RSV. No chest pain. PHYSICAL EXAMINATION: This is a 74-year-old female in no apparent distress at the time of my examination. HEENT: Head is atraumatic, normocephalic. Pupils are equal, round. Sclerae anicteric. Conjunctivae are clear. Mucous membranes of the mouth are moist. Neck is supple. There is no jugular venous distention. No carotid bruit is heard. CHEST EXAMINATION: Lungs with wheezes and diminished. No chest wall tenderness is noted on palpation or with deep breathing. HEART EXAMINATION: Heart regular rate and rhythm. S1, S2 heard. No murmurs, gallops or rub. ABDOMEN: Soft, nontender. Bowel sounds are heard. EXTREMITIES: 2+ peripheral pulses with no evidence of peripheral edema and no calf tenderness noted. NEUROLOGIC EXAMINATION: Patient is awake, alert and oriented x3. IMPRESSION AND PLAN: AAA 6 centimeters, awaiting repair COPD Pulmonary hypertension Carotid stenosis Dyspnea Positive RSV infection PLAN: Symptoms primarily related to pulmonary hypertension. Continue with Revatio and monitoring response. She may benefit from pulmonary hypertension specialist evaluation outpatient. Recommend right heart cath evaluation when she recovers from RSV infection. This can be done with her primary research dairy farm supervisor outpatient. No changes in medications made today Cardiology will sign off this case and follow on an as-needed basis. Please reconsult for any new concerns. Patient may follow-up with her primary research dairy farm supervisor in one to 2 weeks. Nurse practitioner note has been reviewed, I agree with documented findings and plan of care. Patient was seen and examined. Objective - Vital Signs Vital signs: Vital Signs Temp 98.0 F 08/10/24 03:48 Pulse 100 08/10/24 07:55 Resp 22 08/10/24 03:48 BP 124/80 08/10/24 03:48 Pulse Ox 90 L 08/10/24 07:55 FiO2 Intake & Output 08/09/24 08/10/24 08/10/24 18:59 06:59 18:59 Intake Total 20 260 Output Total 0 Balance 20 260 Weight 62.6 kg Intake: IV 20 20 Invasive Line 1 20 20 Oral 240 Output: Urine 0 Other: Voiding Method Bedside Commode # Voids 1 # Bowel Movements 1 - Labs CBC & Chem 7: 08/10/24 06:59 08/10/24 06:59 Labs: Abnormal Lab Results - Last 24 Hours (Table) 08/09/24 08/09/24 08/09/24 Range/Units 05:57 11:28 16:23 WBC (3.8-10.6) k/uL Hct (34.0-46.0) % Neutrophils # (1.3-7.7) k/uL Lymphocytes # (1.0-4.8) k/uL POC Glucose (mg/dL) 235 H 174 H (70-110) mg/dL Hemoglobin A1c 6.8 H (<=6.0) % 08/09/24 08/10/24 08/10/24 Range/Units 20:19 06:09 06:59 WBC 17.1 H (3.8-10.6) k/uL Hct 46.5 H (34.0-46.0) % Neutrophils # 15.8 H (1.3-7.7) k/uL Lymphocytes # 0.6 L (1.0-4.8) k/uL POC Glucose (mg/dL) 257 H 169 H (70-110) mg/dL Hemoglobin A1c (<=6.0) %
--- NOTE | 2024-08-10 13:59 | CDI ---
Documentation Clarification Form Date: 08/10/2024 01:39:37 PM From: Jackelyn Cruz RN, CCDS Phone: [phone] Admit Date: 08/06/2024 09:24:00 PM Patient Name: Sally Richmond Visit Number: [id number] Discharge Date: ATTENTION: The Clinical Documentation Specialists (CDI) and [facility] Coding Staff appreciate your assistance in clarifying documentation. Please respond to the clarification below the line at the bottom and electronically sign. The CDI & [facility] Coding staff will review the response and follow-up if needed. Please note: Queries are made part of the Legal Health Record. If you have any questions, please contact the author of this message via ITS. Doctor. Aleta Ghosh Sepsis viral pneumonia is documented in the H/P which may lack sufficient clinical evidence/support in the medical record. Additional clarification is requested. History/Risk Factors: COPD, Hypertension, AAA, home O2 @ 4/L NC Clinical Indicators: 73-year-old female present with worsening dyspnea. Treaded with prednisone and Cefdinir from PCP on Friday with worsening symptoms. 08/06 VS: 96/62 112 22 97.6 83% 4/LNC 08/06 Labs: WBC 15.9, Neutrophils 14.5, 16.3 lactic acid 5.0, Troponin I 0.036, BNP 38221 RSV Detected 08/06 CXR: Mild increased linear markings mid and lower lung bee with mild prominence of the pulmonary vascular markings. Correlate for pulmonary edema or atypical pneumonia. Treatment: Rocephin 2 GM IVPB Once Zithromax 500 MG PO Once Please clarify if Sepsis is a valid diagnosis? [ ] No, Sepsis is ruled out [ x ] Yes, Sepsis is present as evidence by (additional clinical support): Elevated white blood cell count and elevated lactic acid with increased oxygen requirement [ ] Other (please specify diagnosis) [ ] Unable to determine (Template Last Revised: December 2023) MTDD
--- NOTE | 2024-08-10 14:32 | P.PN ---
Subjective Progress Note Date: 08/10/24 Pt now requiring 5-6 L NC, close to baseline. She is short of breath with minimal exertion, hypoxia predominantly felt to be secondary to pulmonary hypertension and patient was counseled today on need to follow-up with the pulmonary hypertension specialist for soon as possible upon discharge. She should be cleared for discharge once she reaches 4 L of nasal cannula. Gen: In NAD, non-toxic HEENT: normocephalic, atraumatic, hearing acuity is intant, mucous membranes moist CVS: perfusing all extremities well, no pitting edema, Respiratory: symmetric chest expansion, no accessory muscle use, GI: soft, NTTP, ND, : no suprapubic tenderness, no CVA tenderness MSK/Derm: no rashes, cyanosis Neuro: CN II-XII intact, no motor weakness, Psych: cooperative, euthymic mood, judgment and insight is intact Hospital course: 74-year-old with COPD on home O2 at 4 L, pulmonary hypertension, and abdominal aortic aneurysm who presents with shortness of breath. In the ER ultimately found to have acute on chronic hypoxic respiratory failure with an O2 sat of 83% on home 4 L. Found to be RSV positive. Initial laboratory analysis also remarkable for white blood cell count of 15.9, potassium 3.3, lactic acid 5, calcium 10.4, and troponin of 0.036. X-ray consistent with atypical pneumonia versus pulmonary edema. Required increased to 10 L nasal cannula. Started on bronchodilators, steroids, and nystatin. Pulmonary consulted. Assessment/Plan: Acute on chronic hypoxic respiratory failure currently on 8 L with home O2 of 4 L -O2 sat of 83% on home O2 of 4 L in the ER RSV pneumonia Acute exacerbation of COPD Thrush -Solu-Medrol 60 every 6 IV, DuoNeb times daily as needed, continue with Symbicort daily - nystatin swish and swallow Group 3 pulmonary hypertension -Cardiology and pulmonology on consult -Cardiology initiated revatio 20mg TID -Holding lasix, can consider an additional 20mg IV dose if no further improvement with revatio -Oxygen as required, down titrated as able HTN -Norvasc 2.5 mg DVT prophylaxis: Lovenox Anticipated discharge date: Pending clinical course Anticipated discharge place: Pending clinical course This dictation was prepared using [employer] voice recognition software. Though every attempt is made to correct errors during dictation some may still exist. Objective - Vital Signs Vital signs: Vital Signs Temp 97.9 F 08/10/24 09:06 Pulse 96 08/10/24 12:17 Resp 22 08/10/24 12:17 BP 112/51 08/10/24 12:17 Pulse Ox 93 L 08/10/24 12:17 FiO2 Intake & Output 08/09/24 08/10/24 08/10/24 18:59 06:59 18:59 Intake Total 20 260 Output Total 0 Balance 20 260 Weight 62.6 kg Intake: IV 20 20 Invasive Line 1 20 20 Oral 240 Output: Urine 0 Other: Voiding Method Bedside Commode # Voids 1 # Bowel Movements 1 - Labs CBC & Chem 7: 08/10/24 06:59 08/10/24 06:59 Labs: Abnormal Lab Results - Last 24 Hours (Table) 08/09/24 08/09/24 08/10/24 Range/Units 16:23 20:19 06:09 WBC (3.8-10.6) k/uL Hct (34.0-46.0) % Neutrophils # (1.3-7.7) k/uL Lymphocytes # (1.0-4.8) k/uL BUN (7-17) mg/dL Glucose (74-99) mg/dL POC Glucose (mg/dL) 174 H 257 H 169 H (70-110) mg/dL 08/10/24 08/10/24 08/10/24 Range/Units 06:59 06:59 11:14 WBC 17.1 H (3.8-10.6) k/uL Hct 46.5 H (34.0-46.0) % Neutrophils # 15.8 H (1.3-7.7) k/uL Lymphocytes # 0.6 L (1.0-4.8) k/uL BUN 33 H (7-17) mg/dL Glucose 161 H (74-99) mg/dL POC Glucose (mg/dL) 160 H (70-110) mg/dL
[2024-08-10 16:47] LABS: Glucose,Whole Blood 194 mg/dL (70-110)
[2024-08-10 20:06] LABS: Glucose,Whole Blood 192 mg/dL (70-110)
[2024-08-11 05:48] LABS: Glucose,Whole Blood 166 mg/dL (70-110)
[2024-08-11 06:40] LABS: Basophils # (A) 0.1 k/uL (0-0.2); Basophils % (A) 0 %; Eosinophils % (A) 0 %; HCT 46.3 % (34.0-46.0); HGB 14.9 gm/dL (11.4-16.0); Lymphocytes # (A) 0.7 k/uL (1.0-4.8); Lymphocytes % (A) 4 %; MCH 29.6 pg (25.0-35.0); MCHC 32.1 g/dL (31.0-37.0); MCV 92.2 fL (80.0-100.0); Mean Platelet Volume 9.1; Monocytes # (A) 0.5 k/uL (0-1.0); Monocytes % (A) 3 %; Neutrophils # (A) 18.5 k/uL (1.3-7.7); Neutrophils % (A) 93 %; Platelet Count 244 k/uL (150-450); RBC 5.03 m/uL (3.80-5.40); RDW 15.6 % (11.5-15.5); WBC 19.9 k/uL (3.8-10.6)
[2024-08-11 06:55] LABS: African American GFR (CKD) 79 (>60 ml/min/1.73 sqM); Anion Gap 10 mmol/L; Blood Urea Nitrogen 37 mg/dL (7-17); Calcium 9.8 mg/dL (8.4-10.2); Carbon Dioxide 26 mmol/L (22-30); Chloride 99 mmol/L (98-107); Glucose 150 mg/dL (74-99); Magnesium 2.2 mg/dL (1.6-2.3); Non-African American GFR(CKD) 68 (>60 ml/min/1.73 sqM); Potassium 4.5 mmol/L (3.5-5.1); Sodium 135 mmol/L (137-145)
[2024-08-11 11:35] LABS: Glucose,Whole Blood 187 mg/dL (70-110)
[2024-08-11] MEDS: FUROSEMIDE 10 MG/ML 4 ML VIAL IV STA (11:54)
--- NOTE | 2024-08-11 14:34 | P.PN ---
Subjective Progress Note Date: 08/11/24 History of present illness: Patient is a pleasant 74-year-old female with significant past medical history of AAA approximately 6 cm awaiting repair, pulmonary hypertension, carotid stenosis, COPD on home oxygen for the past 2 years who presented with worsening shortness of breath. She does follow with turn supervisor Dr. Estuardo Burgess and is awaiting an outpatient heart catheterization. She reports that she had been feeling more short of breath and not well over the past week saw her PCP and did not have improvement with steroids. Her oxygen levels were dropping down into the 70s. She denies any family history of heart disease. She quit smoking in 2005, denies any alcohol or drug use. She was positive for RSV. Troponin 0.036, 0.032, BNP 14,000. EKG shows sinus rhythm with incomplete right bundle branch block, moderate ST depression. She is feeling significantly better today. Echocardiogram was completed and preliminary report shows significant RV dilation correlating with pulmonary hypertension. Echocardiogram 08/07/2024 with EF 55%, severe right ventricular dilation with RV: LV ratio of 1.95, pulmonary hypertension with RVSP 67, may be underestimated secondary to RV failure, mild mitral regurgitation, moderate tricuspid regurgitation. 08/08/24 Patient is doing okay. She did have a nosebleed overnight and now feels stuffed up and has to breathe through her mouth. Denies any chest pain or pressure. WBC 12.8, hemoglobin 14.6, sodium 137, creatinine 0.92. 08/09/2024 Patient seen and examined. Patient remains in isolation for RSV. No complaints of chest pain. She continues to have frequent coughing. Blood pressure 114/80, heart rate 103, pulse ox 94% on 8 L nasal cannula. Repeat blood work reveals hemoglobin 14.2, WBC 15.9. Creatinine 1.02, potassium 4.8. Hemoglobin A1c 6.8. 08/10/2024 Patient seen and examined. Blood pressure 124/80, heart rate 100, pulse ox 90% on 7 L high flow nasal cannula. Patient remains in isolation for RSV. No chest pain. 08/11/2024 Patient seen and examined. She states that she has had some cough with blood tinged sputum. She also has some mild epistaxis. Blood pressure 120/76, heart rate 106, pulse ox 85% on room air. PHYSICAL EXAMINATION: This is a 74-year-old female in no apparent distress at the time of my examination. HEENT: Head is atraumatic, normocephalic. Pupils are equal, round. Sclerae anicteric. Conjunctivae are clear. Mucous membranes of the mouth are moist. Neck is supple. There is no jugular venous distention. No carotid bruit is heard. CHEST EXAMINATION: Lungs with wheezes and diminished. No chest wall tenderness is noted on palpation or with deep breathing. HEART EXAMINATION: Heart regular rate and rhythm. S1, S2 heard. No murmurs, gallops or rub. ABDOMEN: Soft, nontender. Bowel sounds are heard. EXTREMITIES: 2+ peripheral pulses with no evidence of peripheral edema and no calf tenderness noted. NEUROLOGIC EXAMINATION: Patient is awake, alert and oriented x3. IMPRESSION AND PLAN: AAA 6 centimeters, awaiting repair COPD Pulmonary hypertension Carotid stenosis Dyspnea Positive RSV infection PLAN: Symptoms primarily related to pulmonary hypertension. Continue with Revatio and monitoring response. She may benefit from pulmonary hypertension specialist evaluation outpatient. Recommend right heart cath evaluation when she recovers from RSV infection. This can be done with her primary turn supervisor outpatient. No changes in medications made today Patient may follow-up with her primary turn supervisor in one to 2 weeks. Nurse practitioner note has been reviewed, I agree with documented findings and plan of care. Patient was seen and examined. Objective - Vital Signs Vital signs: Vital Signs Temp 97.8 F 08/11/24 08:00 Pulse 90 08/11/24 08:41 Resp 18 08/11/24 08:00 BP 132/79 08/11/24 08:00 Pulse Ox 91 L 08/11/24 08:00 FiO2 Intake & Output 08/10/24 08/11/24 08/11/24 18:59 06:59 18:59 Intake Total 118 10 246 Balance 118 10 246 Weight 63.3 kg Intake: IV 10 10 Invasive Line 2 10 10 Oral 118 236 Other: Voiding Method Bedside Commode Bedside Commode # Voids 0 # Bowel Movements 1 - Labs CBC & Chem 7: 08/11/24 05:59 08/11/24 05:59 Labs: Abnormal Lab Results - Last 24 Hours (Table) 08/10/24 08/10/24 08/10/24 Range/Units 11:14 16:45 20:04 WBC (3.8-10.6) k/uL Hct (34.0-46.0) % RDW (11.5-15.5) % Neutrophils # (1.3-7.7) k/uL Lymphocytes # (1.0-4.8) k/uL Sodium (137-145) mmol/L BUN (7-17) mg/dL Glucose (74-99) mg/dL POC Glucose (mg/dL) 160 H 194 H 192 H (70-110) mg/dL 08/11/24 08/11/24 08/11/24 Range/Units 05:47 05:59 05:59 WBC 19.9 H (3.8-10.6) k/uL Hct 46.3 H (34.0-46.0) % RDW 15.6 H (11.5-15.5) % Neutrophils # 18.5 H (1.3-7.7) k/uL Lymphocytes # 0.7 L (1.0-4.8) k/uL Sodium 135 L (137-145) mmol/L BUN 37 H (7-17) mg/dL Glucose 150 H (74-99) mg/dL POC Glucose (mg/dL) 166 H (70-110) mg/dL
[2024-08-11 16:41] LABS: Glucose,Whole Blood 205 mg/dL (70-110)
--- NOTE | 2024-08-11 16:56 | P.PN ---
Subjective Progress Note Date: 08/11/24 Patient was seen and examined. On 5L NC saturating 88-90% at rest. She is on 4L O2 at home. Winded walking short distances. No other complaints. CBC and BMP significant for WBC 19.9, Hct 46.3, Na 135, BUN 37, glu 150. Mag 2.2. General: non toxic, no distress, appears at stated age Derm: warm, dry Head: atraumatic, normocephalic, symmetric Eyes: EOMI, no lid lag, anicteric sclera Mouth: no lip lesion, mucus membranes moist Cardiovascular: S1S2 reg, no murmur Lungs: Clear to auscultation bilateral, no rhonchi, no rales , no accessory muscle use Ext: no gross muscle atrophy, no edema, no contractures Neuro: no focal neuro deficits Psych: Alert, oriented, appropriate affect Based on my assessment of this patient, this patient meets a high complexity level of care. Acute on chronic hypoxic respiratory failure currently on 8 L with home O2 of 4 L RSV pneumonia Acute exacerbation of COPD Thrush Group 3 pulmonary hypertension HTN Continue DuoNeb QID PRN, SoluMedrol 60 mg IV Q6H, Symbicort 2 INH BID, Trelegy 1 INH QD. Continue Revatio 20 mg PO TID. Nystatin oral suspension for thrush. Amlodipine 2.5 mg PO QD for HTN. Cardiology and Pulmonary on board. She is pending clinical improvement. CODE STATUS: FULL CODE DVT Prophylaxis: Lovenox SQ GI Prophylaxis: Protonix PO Designated medical POA if patient is not able to make medical decisions for themselves: I have reviewed the following big machine consultant notes: Cardiology. I have reviewed the results of the following tests: CBC, BMP, Mag. I have ordered the following tests: I have discussed the care of this patient with the following independent historian: I have independently interpreted the following test below: I have discussed the management of this patient with the following physician: Objective - Vital Signs Vital signs: Vital Signs Temp 98.0 F 08/11/24 12:00 Pulse 82 08/11/24 16:01 Resp 18 08/11/24 14:00 BP 120/76 08/11/24 12:00 Pulse Ox 85 L 08/11/24 12:00 FiO2 Intake & Output 08/10/24 08/11/24 08/11/24 18:59 06:59 18:59 Intake Total 118 10 468 Balance 118 10 468 Weight 63.3 kg Intake: IV 10 10 Invasive Line 2 10 10 Oral 118 458 Other: Voiding Method Bedside Commode Bedside Commode # Voids 0 3 # Bowel Movements 1 2 - Labs CBC & Chem 7: 08/11/24 05:59 08/11/24 05:59 Labs: Abnormal Lab Results - Last 24 Hours (Table) 08/10/24 08/11/24 08/11/24 Range/Units 20:04 05:47 05:59 WBC 19.9 H (3.8-10.6) k/uL Hct 46.3 H (34.0-46.0) % RDW 15.6 H (11.5-15.5) % Neutrophils # 18.5 H (1.3-7.7) k/uL Lymphocytes # 0.7 L (1.0-4.8) k/uL Sodium (137-145) mmol/L BUN (7-17) mg/dL Glucose (74-99) mg/dL POC Glucose (mg/dL) 192 H 166 H (70-110) mg/dL 08/11/24 08/11/24 08/11/24 Range/Units 05:59 11:33 16:39 WBC (3.8-10.6) k/uL Hct (34.0-46.0) % RDW (11.5-15.5) % Neutrophils # (1.3-7.7) k/uL Lymphocytes # (1.0-4.8) k/uL Sodium 135 L (137-145) mmol/L BUN 37 H (7-17) mg/dL Glucose 150 H (74-99) mg/dL POC Glucose (mg/dL) 187 H 205 H (70-110) mg/dL
[2024-08-11 20:02] LABS: Glucose,Whole Blood 239 mg/dL (70-110)
[2024-08-12 05:59] LABS: Glucose,Whole Blood 199 mg/dL (70-110)
[2024-08-12] MEDS: PANTOPRAZOLE 40 MG TABLET PO SCH (06:15)
[2024-08-12 08:59] VITALS: RESP 18
[2024-08-12] MEDS: ENOXAPARIN 40 MG/0.4 ML SYRINGE SQ SCH (09:00)
[2024-08-12 11:25] LABS: Glucose,Whole Blood 147 mg/dL (70-110)
--- NOTE | 2024-08-12 13:44 | P.PN ---
Subjective Progress Note Date: 08/12/24 Patient was seen and examined. On 5L NC saturating 93% at rest. She reports improvement in her symptoms today. No other complaints. General: non toxic, no distress, appears at stated age Derm: warm, dry Head: atraumatic, normocephalic, symmetric Eyes: EOMI, no lid lag, anicteric sclera Mouth: no lip lesion, mucus membranes moist Cardiovascular: S1S2 reg, no murmur Lungs: Clear to auscultation bilateral, no rhonchi, no rales , no accessory muscle use Ext: no gross muscle atrophy, no edema, no contractures Neuro: no focal neuro deficits Psych: Alert, oriented, appropriate affect Based on my assessment of this patient, this patient meets a high complexity level of care. Acute on chronic hypoxic respiratory failure currently on 5 L with home O2 of 4 L RSV pneumonia Acute exacerbation of COPD Thrush Group 3 pulmonary hypertension HTN Continue DuoNeb QID PRN, SoluMedrol 60 mg IV Q6H, Symbicort 2 INH BID, Trelegy 1 INH QD. Continue Revatio 20 mg PO TID. Nystatin oral suspension for thrush. Amlodipine 2.5 mg PO QD for HTN. Cardiology and Pulmonary on board. Anticipate discharge home in 1-2 days with continued improvement. She is pending clinical improvement. High risk for re-admission. CODE STATUS: FULL CODE DVT Prophylaxis: Lovenox SQ GI Prophylaxis: Protonix PO Designated medical POA if patient is not able to make medical decisions for themselves: I have reviewed the following mental health consultant notes: I have reviewed the results of the following tests: I have ordered the following tests: I have discussed the care of this patient with the following independent historian: Case management. I have independently interpreted the following test below: I have discussed the management of this patient with the following physician: Objective - Vital Signs Vital signs: Vital Signs Temp 97.9 F 08/12/24 08:58 Pulse 94 08/12/24 12:00 Resp 18 08/12/24 12:00 BP 132/83 08/12/24 12:00 Pulse Ox 93 L 08/12/24 12:00 FiO2 Intake & Output 08/11/24 08/12/24 08/12/24 18:59 06:59 18:59 Intake Total 586 250 Output Total 1000 Balance -414 250 Weight 61.7 kg Intake: IV 10 10 Invasive Line 2 10 10 Oral 576 240 Output: Urine 1000 Other: Voiding Method Bedside Commode Bedside Commode Bedside Commode # Voids 3 0 1 # Bowel Movements 2 0 - Labs CBC & Chem 7: 08/11/24 05:59 08/11/24 05:59 Labs: Abnormal Lab Results - Last 24 Hours (Table) 08/11/24 08/11/24 08/12/24 Range/Units 16:39 20:01 05:57 POC Glucose (mg/dL) 205 H 239 H 199 H (70-110) mg/dL 08/12/24 Range/Units 11:23 POC Glucose (mg/dL) 147 H (70-110) mg/dL
[2024-08-12 14:40] VITALS: BMI 22.6
--- NOTE | 2024-08-12 15:12 | P.PN ---
Subjective Progress Note Date: 08/12/24 History of present illness: Patient is a pleasant 74-year-old female with significant past medical history of AAA approximately 6 cm awaiting repair, pulmonary hypertension, carotid stenosis, COPD on home oxygen for the past 2 years who presented with worsening shortness of breath. She does follow with patrol man Dr. Estuardo Burgess and is awaiting an outpatient heart catheterization. She reports that she had been feeling more short of breath and not well over the past week saw her PCP and did not have improvement with steroids. Her oxygen levels were dropping down into the 70s. She denies any family history of heart disease. She quit smoking in 2005, denies any alcohol or drug use. She was positive for RSV. Troponin 0.036, 0.032, BNP 14,000. EKG shows sinus rhythm with incomplete right bundle branch block, moderate ST depression. She is feeling significantly better today. Echocardiogram was completed and preliminary report shows significant RV dilation correlating with pulmonary hypertension. Echocardiogram 08/07/2024 with EF 55%, severe right ventricular dilation with RV: LV ratio of 1.95, pulmonary hypertension with RVSP 67, may be underestimated secondary to RV failure, mild mitral regurgitation, moderate tricuspid regurgitation. 08/08/24 Patient is doing okay. She did have a nosebleed overnight and now feels stuffed up and has to breathe through her mouth. Denies any chest pain or pressure. WBC 12.8, hemoglobin 14.6, sodium 137, creatinine 0.92. 08/09/2024 Patient seen and examined. Patient remains in isolation for RSV. No complaints of chest pain. She continues to have frequent coughing. Blood pressure 114/80, heart rate 103, pulse ox 94% on 8 L nasal cannula. Repeat blood work reveals hemoglobin 14.2, WBC 15.9. Creatinine 1.02, potassium 4.8. Hemoglobin A1c 6.8. 08/10/2024 Patient seen and examined. Blood pressure 124/80, heart rate 100, pulse ox 90% on 7 L high flow nasal cannula. Patient remains in isolation for RSV. No chest pain. 08/11/2024 Patient seen and examined. She states that she has had some cough with blood tinged sputum. She also has some mild epistaxis. Blood pressure 120/76, heart rate 106, pulse ox 85% on room air. 08/12 Patient seen and examined. Patient states that she is starting to feel better. She thinks that she is going home later today. PHYSICAL EXAMINATION: This is a 74-year-old female in no apparent distress at the time of my examination. HEENT: Head is atraumatic, normocephalic. Pupils are equal, round. Sclerae anicteric. Conjunctivae are clear. Mucous membranes of the mouth are moist. Neck is supple. There is no jugular venous distention. No carotid bruit is heard. CHEST EXAMINATION: Lungs with wheezes and diminished. No chest wall tenderness is noted on palpation or with deep breathing. HEART EXAMINATION: Heart regular rate and rhythm. S1, S2 heard. No murmurs, gallops or rub. ABDOMEN: Soft, nontender. Bowel sounds are heard. EXTREMITIES: 2+ peripheral pulses with no evidence of peripheral edema and no calf tenderness noted. NEUROLOGIC EXAMINATION: Patient is awake, alert and oriented x3. IMPRESSION AND PLAN: AAA 6 centimeters, awaiting repair COPD Pulmonary hypertension Carotid stenosis Dyspnea Positive RSV infection PLAN: Symptoms primarily related to pulmonary hypertension. Continue with Revatio and monitoring response. Recommend pulmonary hypertension specialist evaluation outpatient. Recommend right heart cath evaluation when she recovers from RSV infection. T his can be done with her primary patrol man outpatient. No changes in medications made today Patient may follow-up with her primary patrol man in one to 2 weeks. Cardiology will sign off this case and follow on an as-needed basis. Please reconsult for any new concerns. Patient may follow-up in the office in one to 2 weeks. Nurse practitioner note has been reviewed, I agree with documented findings and plan of care. Patient was seen and examined. Objective - Vital Signs Vital signs: Vital Signs Temp 97.9 F 08/12/24 08:58 Pulse 94 08/12/24 14:00 Resp 18 08/12/24 14:00 BP 132/83 08/12/24 12:00 Pulse Ox 93 L 08/12/24 12:00 FiO2 Intake & Output 08/11/24 08/12/24 08/12/24 18:59 06:59 18:59 Intake Total 586 440 Output Total 1000 Balance -414 440 Weight 61.7 kg 61.7 kg Intake: IV 10 20 Invasive Line 2 10 20 Oral 576 420 Output: Urine 1000 Other: Voiding Method Bedside Commode Bedside Commode Toilet # Voids 3 0 1 # Bowel Movements 2 0 - Labs CBC & Chem 7: 08/11/24 05:59 08/11/24 05:59 Labs: Abnormal Lab Results - Last 24 Hours (Table) 08/11/24 08/11/24 08/12/24 Range/Units 16:39 20:01 05:57 POC Glucose (mg/dL) 205 H 239 H 199 H (70-110) mg/dL 08/12/24 Range/Units 11:23 POC Glucose (mg/dL) 147 H (70-110) mg/dL
[2024-08-12 16:21] LABS: Glucose,Whole Blood 212 mg/dL (70-110)
[2024-08-12 20:05] LABS: Glucose,Whole Blood 209 mg/dL (70-110)
[2024-08-13 05:54] LABS: Glucose,Whole Blood 174 mg/dL (70-110)
[2024-08-13 08:19] VITALS: TEMP 97.6
[2024-08-13 11:06] VITALS: BP 105/65
[2024-08-13 11:45] LABS: Glucose,Whole Blood 247 mg/dL (70-110)
[2024-08-13 12:12] VITALS: PULSE 80
--- NOTE | 2024-08-13 13:40 | P.DS ---
Providers Date of admission: 08/06/24 21:24 Expected date of discharge: 08/13/24 Attending physician: La Chavarria DO Consults: 08/06/24 19:58 Consult Physician Stat Consulting Provider: Kaden Hart Consult Reason/Comments: CHF, pulmonary edema Do you want consulting provider notified?: Yes Consult Physician Stat Consulting Provider: Pietro Colunga Consult Reason/Comments: Sepsis, pneumonia, RSV, pulmonary edema Do you want consulting provider notified?: Yes 08/11/24 11:09 Consult Physician Routine Consulting Provider: Lauren Sales Consult Reason/Comments: Keep on list Do you want consulting provider notified?: Yes 08/11/24 11:11 Consult Physician Routine Consulting Provider: Dell Colmenares Consult Reason/Comments: epistaxis Do you want consulting provider notified?: Yes Primary care physician: Nolan Dsouza [facility] Course: 74 year old F with PMH of COPD on 4L home O2, pulmonary hypertension, AAA presented to the ED for progressively worsening shortness of breath. Vitals on admission T 97.6, HR 112, RR 22, BP 93/62, O2 saturation of 83% on 4 L nasal cannula. EKG showed sinus rhythm with ventricular rate 97 and QTc of 434 ms CXR showed mild increased linear markings mid and lower lung bee with mild prominence of the pulmonary vasculature markings, consistent with pulmonary hypertension. Labs on admission showed WBC of 15.9 with left shift, hemoglobin 16.3, platelet 285. PT 10.3, INR 0.9, PTT 21.8. Sodium 139, potassium 3.3, chloride 96, bicarb 24, BUN 27, creatinine 1, glucose 138. Lactic acid downtrending 5 to 4.1. Calcium 10.4. Troponin downtrending 0.036, 0.032. Cepheid was positive for RSV. Patient was admitted for acute on chronic hypoxic respiratory failure secondary to COPD exacerbation + RSV pneumonia. She was started on bronchodilators and SoluMedrol. Pulmonary was consulted. Procal 0.09, low concerns for bacterial PNA, antibiotics discontinued. Cardiology consulted with regard to elevated Troponin. Echo ordered which showed EF 55% with G1DD, severe RV dilation with pulmonary hypertension. She was started on Revatio with recommendations to follow up with primary exhibit specialist for pulmonary hypertension specialist evaluation and right heart cath. 08/13 Patient was seen and examined. Feeling better. Down to 4L NC. She does desat into the 80s with ambulation but quickly recovers with rest. She would like to go home. Discharge Plan: Prescription for Prednisone taper, Mucinex, Revatio and Protonix sent to the pharmacy. Follow up with PCP within 1-2 days of discharge Follow up with Pulmonary within 1 week of discharge. Follow up with Acoustic Engineer regarding pulmonary hypertension specialist evaluation and right heart cath. Follow up with Vascular surgery Dr. Rowan with regard to AAA management. General: non toxic, no distress, appears at stated age Derm: warm, dry Head: atraumatic, normocephalic, symmetric Eyes: EOMI, no lid lag, anicteric sclera Mouth: no lip lesion, mucus membranes moist Cardiovascular: S1S2 reg, no murmur Lungs: Clear to auscultation bilateral, no rhonchi, no rales , no accessory muscle use Ext: no gross muscle atrophy, no edema, no contractures Neuro: no focal neuro deficits Psych: Alert, oriented, appropriate affect Discharge Diagnosis: Acute on chronic hypoxic respiratory failure with home O2 of 4 L RSV pneumonia Acute exacerbation of COPD Thrush Group 3 pulmonary hypertension HTN This complex discharge took 35 minutes to complete. Patient Condition at Discharge: Stable Plan - Discharge Summary Discharge Rx Participant: No New Discharge Prescriptions: New guaiFENesin [Mucinex] 1,200 mg PO BID #30 tab Sildenafil [Revatio] 20 mg PO TID #90 tab predniSONE See Taper PO DIRECTED #30 tab Pantoprazole [Protonix] 40 mg PO AC-BRKFST #30 tab Acetaminophen Tab [Tylenol] 650 mg PO Q4HR PRN tab PRN Reason: Fever And/Or Mild Pain Continue [place] 20mg 20 mg PO DAILY Atorvastatin [Lipitor] 40 mg PO DAILY Dicyclomine [Bentyl] 10 mg PO TID Ergocalciferol [Vitamin D2 (1250 Mcg = 96955 Iu)] 1,250 mcg PO MO Furosemide [Lasix] 20 mg PO DAILY Ipratropium/Albuter 20-100Mcg [Combivent Respimat 20-100Mcg Inhaler] 1 puff INHALATION RT-QID Sertraline [Zoloft] 50 mg PO DAILY amLODIPine [Norvasc] 2.5 mg PO DAILY Aspirin EC [Ecotrin Low Dose] 81 mg PO DAILY Cetirizine HCl [Zyrtec] 10 mg PO DAILY Fluticasone/Umeclidin/Vilanter [Trelegy Ellipta 200-62.5-25] 1 puff INHALATI ON RT-DAILY Ipratropium-Albuterol Nebulize [Duoneb 0.5 mg-3 mg/3 ml Soln] 3 ml INHALATION RT-QID PRN PRN Reason: Shortness Of Breath Nystatin 100,000 Unit/ml Susp [Mycostatin Oral Susp] 500,000 unit PO QID Discontinued Cefdinir [Omnicef] 300 mg PO BID predniSONE [Deltasone] See Taper PO DAILY Discharge Medication List Aspirin EC [Ecotrin Low Dose] 81 mg PO DAILY 08/06/24 [History] Atorvastatin [Lipitor] 40 mg PO DAILY 08/06/24 [History] Cetirizine HCl [Zyrtec] 10 mg PO DAILY 08/06/24 [History] Dicyclomine [Bentyl] 10 mg PO TID 08/06/24 [History] Ergocalciferol [Vitamin D2 (1250 Mcg = 71095 Iu)] 1,250 mcg PO MO 08/06/24 [History] Fluticasone/Umeclidin/Vilanter [Trelegy Ellipta 200-62.5-25] 1 puff INHALATION RT-DAILY 08/06/24 [History] Furosemide [Lasix] 20 mg PO DAILY 08/06/24 [History] Ipratropium-Albuterol Nebulize [Duoneb 0.5 mg-3 mg/3 ml Soln] 3 ml INHALATION RT-QID PRN 08/06/24 [History] Ipratropium/Albuter 20-100Mcg [Combivent Respimat 20-100Mcg Inhaler] 1 puff INHALATION RT-QID 08/06/24 [History] [place] 20mg 20 mg PO DAILY 08/06/24 [History] Nystatin 100,000 Unit/ml Susp [Mycostatin Oral Susp] 500,000 unit PO QID 08/06/24 [History] Sertraline [Zoloft] 50 mg PO DAILY 08/06/24 [History] amLODIPine [Norvasc] 2.5 mg PO DAILY 08/06/24 [History] Acetaminophen Tab [Tylenol] 650 mg PO Q4HR PRN tab 08/13/24 [Rx] Pantoprazole [Protonix] 40 mg PO AC-BRKFST #30 tab 08/13/24 [Rx] Sildenafil [Revatio] 20 mg PO TID #90 tab 08/13/24 [Rx] guaiFENesin [Mucinex] 1,200 mg PO BID #30 tab 08/13/24 [Rx] predniSONE See Taper PO DIRECTED #30 tab 08/13/24 [Rx] Follow up Appointment(s)/Referral(s): Nolan Chopra MD [Primary Care Provider] - 1-2 days Pietro Colunga MD [STAFF PHYSICIAN] - 1 Week Patient Instructions/Handouts: Respiratory Syncytial Virus (DC) Discharge Disposition: HOME SELF-CARE
== END 2024-08-13 15:44 | disposition home or self-care (01) | DRG 871 ==
LOC: EDSEX → EC 16:46 → 2SICU 21:24 → 3SCARD 08-07 00:12
PROVIDERS: ADMIT Internal Medicine; ATTEND Internal Medicine
DX: A41.89 Other specified sepsis (principal); J12.1 Respiratory syncytial virus pneumonia; J96.21 Acute and chronic respiratory failure with hypoxia; E87.20 Acidosis, unspecified; J44.1 Chronic obstructive pulmonary disease with (acute) exacerbation; J44.0 Chronic obstructive pulmonary disease with (acute) lower respiratory infection; B37.0 Candidal stomatitis; E78.5 Hyperlipidemia, unspecified; R04.0 Epistaxis; E87.6 Hypokalemia; I50.9 Heart failure, unspecified; I65.29 Occlusion and stenosis of unspecified carotid artery; I71.40 Abdominal aortic aneurysm, without rupture, unspecified; I27.23 Pulmonary hypertension due to lung diseases and hypoxia; I11.0 Hypertensive heart disease with heart failure; Z90.710 Acquired absence of both cervix and uterus; I45.10 Unspecified right bundle-branch block; Z79.899 Other long term (current) drug therapy; Z79.82 Long term (current) use of aspirin; Z79.52 Long term (current) use of systemic steroids; Z99.81 Dependence on supplemental oxygen; Z87.891 Personal history of nicotine dependence
CPT/HCPCS: 36415; 36600; 71046; 80048; 80053; 82803; 82805; 83036; 83605; 83735; 83880; 84100; 84145; 84484; 85025; 85027; 85610; 85730; 87636; 93005; 93306; 94640; 94760; 96360; 96361; 96372; 99285

== ENCOUNTER 2024-09-21 13:49 | Inpatient (IN) | payer MEDICARE, OTHER ==
--- NOTE | 2024-09-21 14:08 | ED ---
SOB HPI - General Chief Complaint: Shortness of Breath Stated Complaint: COPD Time Seen by Provider: 09/21/24 14:07 Source: patient, RN notes reviewed, old records reviewed Mode of arrival: wheelchair Limitations: no limitations - History of Present Illness Initial Comments: This is a 72-year-old female to the ER for evaluation today. Patient coming in for shortness of breath. Shortness of breath with cough and congestion. Patient has underlying history of COPD on 4 L at baseline with significant hypoxia. Patient is presenting for low oxygen levels. Patient has history of COPD with RSV, recent inpatient hospital admission for RSV 6 weeks ago. No chest pain increasing shortness of breath patient has low oxygen readings at home called primary care and was sent to the emergency department for evaluation MD Complaint: shortness of breath, cough -: days(s) Severity: moderate Severity scale (1-10): 7 Quality: sharp Consistency: constant Improves With: nothing Known History Of: COPD, asthma Context: recent URI, recent illness Associated Symptoms: chest pain, cough Treatments Prior to Arrival: oxygen - Related Data Home Medications Medication Instructions Recorded Confirmed Aspirin EC [Ecotrin Low Dose] 81 mg PO DAILY 08/06/24 09/21/24 Atorvastatin [Lipitor] 40 mg PO DAILY 08/06/24 09/21/24 Cetirizine HCl [Zyrtec] 10 mg PO DAILY 08/06/24 09/21/24 Dicyclomine [Bentyl] 10 mg PO TID 08/06/24 09/21/24 Ergocalciferol [Vitamin D2 (1250 1,250 mcg PO MO 08/06/24 09/21/24 Mcg = 21363 Iu)] Fluticasone/Umeclidin/Vilanter 1 puff INHALATION RT-DAILY 08/06/24 09/21/24 [Trelegy Ellipta 200-62.5-25] Furosemide [Lasix] 20 mg PO DAILY 08/06/24 09/21/24 Ipratropium-Albuterol Nebulize 3 ml INHALATION RT-QID PRN 08/06/24 09/21/24 [Duoneb 0.5 mg-3 mg/3 ml Soln] Ipratropium/Albuter 20-100Mcg 1 puff INHALATION RT-QID 08/06/24 09/21/24 [Combivent Respimat 20-100Mcg Inhaler] [place] 20mg 20 mg PO DAILY 08/06/24 09/21/24 Sertraline [Zoloft] 50 mg PO DAILY 08/06/24 09/21/24 amLODIPine [Norvasc] 2.5 mg PO DAILY PRN 08/06/24 09/21/24 predniSONE 5 mg PO Q48H 09/21/24 09/21/24 Previous Rx's Medication Instructions Recorded Acetaminophen Tab [Tylenol] 650 mg PO Q4HR PRN tab 08/13/24 Pantoprazole [Protonix] 40 mg PO AC-BRKFST #30 tab 08/13/24 Sildenafil [Revatio] 20 mg PO TID #90 tab 08/13/24 guaiFENesin [Mucinex] 1,200 mg PO BID #30 tab 08/13/24 Metoprolol Succinate (ER) [Toprol 12.5 mg PO DAILY #60 tab 09/25/24 XL] predniSONE 10 mg PO Q48H #90 tab 09/25/24 Allergies Allergy/AdvReac Type Severity Reaction Status Date / Time levofloxacin [From Levaquin] Allergy Unknown Verified 09/21/24 15:11 tetracycline Allergy Unknown Verified 09/21/24 15:11 Review of Systems ROS Statement: Those systems with pertinent positive or pertinent negative responses have been documented in the HPI. ROS Other: All systems not noted in ROS Statement are negative. Past Medical History Past Medical History: COPD, Hyperlipidemia, Hypertension, Respiratory Disorder Additional Past Medical History / Comment(s): Aortic aneurysm. Pulmonary Hypertension History of Any Multi-Drug Resistant Organisms: None Reported Past Surgical History: Breast Surgery, Hysterectomy Additional Past Surgical History / Comment(s): Knee replacement. Wrist surgery. Cataract surgery Past Anesthesia/Blood Transfusion Reactions: No Reported Reaction Past Psychological History: Depression Smoking Status: Former smoker Past Alcohol Use History: None Reported Past Drug Use History: None Reported - Past Family History Mother Family Medical History: Cancer, Diabetes Mellitus Additional Family Medical History / Comment(s): from lung cancer Father Additional Family Medical History / Comment(s): from brain aneurysm General Exam Limitations: no limitations General appearance: alert, in no apparent distress, anxious Head exam: Present: atraumatic, normocephalic, normal inspection Eye exam: Present: normal appearance, PERRL, EOMI. Absent: scleral icterus, conjunctival injection, periorbital swelling ENT exam: Present: normal exam, mucous membranes moist Neck exam: Present: normal inspection. Absent: tenderness, meningismus, lymphadenopathy Respiratory exam: Present: respiratory distress, wheezes, accessory muscle use, decreased breath sounds, prolonged expiratory. Absent: rales, rhonchi, stridor Cardiovascular Exam: Present: normal rhythm, tachycardia, normal heart sounds. Absent: systolic murmur, diastolic murmur, rubs, gallop, clicks GI/Abdominal exam: Present: soft, normal bowel sounds. Absent: distended, tend erness, guarding, rebound, rigid Extremities exam: Present: normal inspection, full ROM, normal capillary refill. Absent: tenderness, pedal edema, joint swelling, calf tenderness Back exam: Present: normal inspection Neurological exam: Present: alert, oriented X3, CN II-XII intact Psychiatric exam: Present: normal affect, normal mood Skin exam: Present: warm, dry, intact, normal color. Absent: rash Course Vital Signs 09/21/24 09/21/24 09/21/24 13:58 14:30 14:51 Temperature 97.7 F Pulse Rate 113 H Pulse Rate [ Commercial Sales Representative ] Respiratory 24 24 24 Rate Blood Pressure 102/67 O2 Sat by Pulse 74 L 87 L 90 L Oximetry 09/21/24 09/21/24 09/21/24 16:39 16:42 16:54 Temperature Pulse Rate 96 100 100 Pulse Rate [ Commercial Sales Representative ] Respiratory 24 Rate Blood Pressure 115/84 O2 Sat by Pulse 89 L Oximetry 09/21/24 09/21/24 09/21/24 18:57 20:02 20:13 Temperature Pulse Rate 105 H 94 94 Pulse Rate [ Commercial Sales Representative ] Respiratory 22 Rate Blood Pressure 121/84 O2 Sat by Pulse 87 L Oximetry 09/21/24 09/21/24 09/21/24 20:16 21:00 23:38 Temperature Pulse Rate 93 87 Pulse Rate [ Commercial Sales Representative ] Respiratory 22 Rate Blood Pressure 110/67 O2 Sat by Pulse 91 L 89 L Oximetry 09/21/24 09/22/24 09/22/24 23:51 00:02 00:15 Temperature Pulse Rate 89 91 92 Pulse Rate [ Commercial Sales Representative ] Respiratory 24 15 Rate Blood Pressure 123/73 123/70 O2 Sat by Pulse 90 L 90 L Oximetry 02/09/22/24 09/22/24 02:51 03:01 03:14 Temperature Pulse Rate 89 85 87 Pulse Rate [ Commercial Sales Representative ] Respiratory 18 Rate Blood Pressure 123/70 O2 Sat by Pulse 83 L 93 L Oximetry 09/22/24 09/22/24 09/22/24 03:40 06:17 07:33 Temperature Pulse Rate 92 96 93 Pulse Rate [ Commercial Sales Representative ] Respiratory 20 18 Rate Blood Pressure 118/73 123/76 O2 Sat by Pulse 86 L 87 L Oximetry 09/22/24 09/22/24 09/22/24 07:35 07:45 08:00 Temperature Pulse Rate 92 101 H Pulse Rate [ Commercial Sales Representative ] Respiratory 18 Rate Blood Pressure 119/80 O2 Sat by Pulse 88 L 88 L Oximetry 09/22/24 09/22/24 09/22/24 09:00 10:00 11:28 Temperature Pulse Rate 110 H 110 H 108 H Pulse Rate [ Commercial Sales Representative ] Respiratory 18 18 Rate Blood Pressure 119/80 137/83 O2 Sat by Pulse 85 L 90 L Oximetry 09/22/24 09/22/24 09/22/24 11:39 12:00 15:07 Temperature Pulse Rate 111 H 105 H 98 Pulse Rate [ Commercial Sales Representative ] Respiratory 18 18 Rate Blood Pressure 108/69 121/79 O2 Sat by Pulse 90 L 93 L Oximetry 09/22/24 09/22/24 09/22/24 15:22 15:26 15:35 Temperature Pulse Rate 106 H 105 H 99 Pulse Rate [ Commercial Sales Representative ] Respiratory 20 Rate Blood Pressure 121/79 O2 Sat by Pulse 93 L Oximetry 09/22/24 09/22/24 19:47 20:00 Temperature 97.8 F Pulse Rate 106 H Pulse Rate [ 103 H Commercial Sales Representative ] Respiratory 18 Rate Blood Pressure 105/73 O2 Sat by Pulse 94 L Oximetry - Reevaluation(s) Reevaluation #1: 09/21/24 14:52 Medical record is reviewed Patient ER evaluation at hospital admission for RSV COPD and hypoxia Multiple ER visits and inpatient hospitalizations for COPD prior history of AAA Reevaluation #2: 09/21/24 17:10 Hypoxia improving with supplemental O2 Work of breathing improved with breathing treatments Heart rate improved with fluid resuscitation Abnormal electrolytes here in the ER magnesium and potassium which I will replace continued pulse ox improvement in no distress Reevaluation #3: 09/21/24 17:10 Informed of results and questions answered Reevaluation #4: Was pt. sent in by a medical professional or institution (, PA, [employer], urgent care, hospital, or intermediate...) When possible be specific @ -no Did you speak to anyone other than the patient for history (EMS, parent, family, police, friend...)? What history was obtained from this source @ -no Did you review nursing and triage notes (agree or disagree)? Why? @ -agree Are old charts reviewed (outside hosp., previous admission, EMS record, old EKG, old radiological studies, urgent care reports/EKG's, intermediate records)? Report findings @ -yes Differential Diagnosis (chest pain, altered mental status, abdominal pain women, abdominal pain men, vaginal bleeding, weakness, fever, dyspnea, syncope, headache, dizziness, GI bleed, back pain, seizure, CVA, palpatations, mental health, musculoskeletal)? @ -prior EKG interpreted by me (3pts min.). @ -yes X-rays interpreted by me (1pt min.). @ -yes negative for acute disease CT interpreted by me (1pt min.). @ -no U/S interpreted by me (1pt. min.). @ -no What testing was considered but not performed or refused? (CT, X-rays, U/S, labs)? Why? @ -none What meds were considered but not given or refused? Why? @ -none Did you discuss the management of the patient with other professionals (professionals i.e. , PA, [employer], lab, RT, psych nurse, social worker school, ambulatory care coordinator, teacher, chief technical officer, case managers)? Give summary @ -no Was smoking cessation discussed for >3mins.? @ -no Was critical care preformed (if so, how long)? @ -yes31 Were there social determinants of health that impacted care today? How? (Homelessness, low income, unemployed, alcoholism, drug addiction, transportation, low edu. Level, literacy, decrease access to med. care, snf, rehab)? @ -none Was there de-escalation of care discussed even if they declined (Discuss DNR or withdrawal of care, Hospice)? DNR status @ -no What co-morbidities impacted this encounter? (DM, HTN, Smoking, COPD, CAD, Cancer, CVA, ARF, Chemo, Hep., AIDS, mental health diagnosis, sleep apnea, morbid obesity)? @ -none Was patient admitted / discharged? Hospital course, mention meds given and route, prescriptions, significant lab abnormalities, going to OR and other pertinent info. @ - 74 Female will be admitted for COPD severe COPD exacerbation and hypoxia here in the emergency room will admit for pulmonary evaluation regards to persistent and worsening hypoxia, history of home supplemental o2, no chest pain, will admit for further supportive care. Admitted for Undiagnosed new problem with uncertain prognosis? @ -no Drug Therapy requiring intensive monitoring for toxicity (Heparin, Nitro, I nsulin, Cardizem)? @ -no Were any procedures done? @ -no Diagnosis/symptom? @ -COPD and hypoxia Acute, or Chronic, or Acute on Chronic? @ -Acute Uncomplicated (without systemic symptoms) or Complicated (systemic symptoms)? @ -Complicated Side effects of treatment? @ -no Exacerbation, Progression, or Severe Exacerbation? @ -exacerbation Poses a threat to life or bodily function? How? (Chest pain, [place], [place], pneumonia, PE, COPD, DKA, ARF, appy, cholecystitis, CVA, Diverticulitis, Homicidal, S uicidal, threat to staff... and all critical care pts) @ -yes respiratory failure Reevaluation #5: Differential Dyspnea: Coronary syndrome, arrhythmia, tamponade, asthma, COPD, pulmonary embolism, pneumonia, pneumothorax, pulmonary effusion, anaphylaxis, diabetic ketoacidosis, flailed chest, pulmonary contusion, diaphragmatic rupture, anemia, neuromuscular, this is not meant to be an all-inclusive list. - Consultations Consultation #1: Spoke with sound who agrees to admit this patient Medical Decision Making - Medical Decision Making 74 Female will be admitted for COPD severe COPD exacerbation and hypoxia here in the emergency room will admit for pulmonary evaluation regards to persistent and worsening hypoxia, history of home supplemental o2, no chest pain, will admit for further supportive care. - Lab Data Result diagrams: 09/25/24 06:32 09/25/24 06:32 Lab Results 09/21/24 09/21/24 09/21/24 Range/Units 14:49 14:49 14:49 WBC 16.4 H (3.8-10.6) k/uL RBC 4.69 (3.80-5.40) m/uL Hgb 13.8 (11.4-16.0) gm/dL Hct 44.2 (34.0-46.0) % MCV 94.3 (80.0-100.0) fL MCH 29.4 (25.0-35.0) pg MCHC 31.2 (31.0-37.0) g/dL RDW 16.5 H (11.5-15.5) % Plt Count 242 (150-450) k/uL MPV 8.8 Neutrophils % 89 % Lymphocytes % 6 % Monocytes % 4 % Eosinophils % 0 % Basophils % 0 % Neutrophils # 14.5 H (1.3-7.7) k/uL Lymphocytes # 1.1 (1.0-4.8) k/uL Monocytes # 0.6 (0-1.0) k/uL Eosinophils # 0.0 (0-0.7) k/uL Basophils # 0.1 (0-0.2) k/uL Hypochromasia Slight Poikilocytosis Slight Anisocytosis Slight PT 11.1 (10.0-12.5) sec INR 1.0 (<1.2) APTT 24.7 (22.0-30.0) sec Sodium 140 (137-145) mmol/L Potassium 3.3 L (3.5-5.1) mmol/L Chloride 101 (98-107) mmol/L Carbon Dioxide 27 (22-30) mmol/L Anion Gap 12 mmol/L BUN 20 H (7-17) mg/dL Creatinine 0.87 (0.52-1.04) mg/dL Est GFR (CKD-EPI)AfAm 77 (>60 ml/min/1.73 sqM) Est GFR (CKD-EPI)NonAf 67 (>60 ml/min/1.73 sqM) Glucose 132 H (74-99) mg/dL Lactic Ac Sepsis Rflx Plasma Lactic Acid Yunior (0.7-2.0) mmol/L Calcium 10.1 (8.4-10.2) mg/dL Magnesium 1.5 L (1.6-2.3) mg/dL Total Bilirubin 1.0 (0.2-1.3) mg/dL AST 22 (14-36) U/L ALT 14 (4-34) U/L Alkaline Phosphatase 74 (38-126) U/L Troponin I (0.000-0.034) ng/mL NT-Pro-B Natriuret Pep 7840 pg/mL Total Protein 6.8 (6.3-8.2) g/dL Albumin 4.2 (3.5-5.0) g/dL 09/21/24 09/21/24 09/21/24 Range/Units 14:49 14:49 15:22 WBC (3.8-10.6) k/uL RBC (3.80-5.40) m/uL Hgb (11.4-16.0) gm/dL Hct (34.0-46.0) % MCV (80.0-100.0) fL MCH (25.0-35.0) pg MCHC (31.0-37.0) g/dL RDW (11.5-15.5) % Plt Count (150-450) k/uL MPV Neutrophils % % Lymphocytes % % Monocytes % % Eosinophils % % Basophils % % Neutrophils # (1.3-7.7) k/uL Lymphocytes # (1.0-4.8) k/uL Monocytes # (0-1.0) k/uL Eosinophils # (0-0.7) k/uL Basophils # (0-0.2) k/uL Hypochromasia Poikilocytosis Anisocytosis PT (10.0-12.5) sec INR (<1.2) APTT (22.0-30.0) sec Sodium (137-145) mmol/L Potassium (3.5-5.1) mmol/L Chloride (98-107) mmol/L Carbon Dioxide (22-30) mmol/L Anion Gap mmol/L BUN (7-17) mg/dL Creatinine (0.52-1.04) mg/dL Est GFR (CKD-EPI)AfAm (>60 ml/min/1.73 sqM) Est GFR (CKD-EPI)NonAf (>60 ml/min/1.73 sqM) Glucose (74-99) mg/dL Lactic Ac Sepsis Rflx Y Plasma Lactic Acid Yunior 2.1 H* (0.7-2.0) mmol/L Calcium (8.4-10.2) mg/dL Magnesium (1.6-2.3) mg/dL Total Bilirubin (0.2-1.3) mg/dL AST (14-36) U/L ALT (4-34) U/L Alkaline Phosphatase (38-126) U/L Troponin I 0.043 H* (0.000-0.034) ng/mL NT-Pro-B Natriuret Pep pg/mL Total Protein (6.3-8.2) g/dL Albumin (3.5-5.0) g/dL - EKG Data -: EKG Interpreted by Me (EKG is sinus tachycardia 108 VA 123 QRS 103 QTc 417) - Radiology Data Radiology results: report reviewed (Chest x-ray is negative for acute disease), image reviewed Critical Care Time Critical Care Time: Yes Total Critical Care Time: 31 Disposition Clinical Impression: Acute exacerbation of chronic obstructive pulmonary disease, Acute respiratory failure, Hypoxia, NSTEMI (non-ST elevated myocardial infarction), Tachycardia, Hypomagnesemia, Hypokalemia Disposition: ADMITTED IP TO THIS HOSP Condition: Stable Is patient prescribed a controlled substance at d/c from ED?: No Time of Disposition: 16:30
[2024-09-21] MEDS: SODIUM CHLORIDE 0.9% 1,000 ML IV STA (14:46)
[2024-09-21] MEDS: methylPREDNISolone SOD SUCCI 125 MG/2 ML VIAL IV STA (14:48)
[2024-09-21 15:00] LABS: Anisocytosis Slight; Basophils # (A) 0.1 k/uL (0-0.2); Basophils % (A) 0 %; Eosinophils % (A) 0 %; HCT 44.2 % (34.0-46.0); HGB 13.8 gm/dL (11.4-16.0); Hypochromasia Slight; Lymphocytes # (A) 1.1 k/uL (1.0-4.8); Lymphocytes % (A) 6 %; MCH 29.4 pg (25.0-35.0); MCHC 31.2 g/dL (31.0-37.0); MCV 94.3 fL (80.0-100.0); Mean Platelet Volume 8.8; Monocytes # (A) 0.6 k/uL (0-1.0); Monocytes % (A) 4 %; Neutrophils # (A) 14.5 k/uL (1.3-7.7); Neutrophils % (A) 89 %; Platelet Count 242 k/uL (150-450); Poikilocytosis Slight; RBC 4.69 m/uL (3.80-5.40); RDW 16.5 % (11.5-15.5); WBC 16.4 k/uL (3.8-10.6)
[2024-09-21 15:09] LABS: Partial Thromboplastin Time 24.7 sec (22.0-30.0); Prothrombin Time 11.1 sec (10.0-12.5)
[2024-09-21 15:18] LABS: ALT 14 U/L (4-34); AST 22 U/L (14-36); African American GFR (CKD) 77 (>60 ml/min/1.73 sqM); Albumin 4.2 g/dL (3.5-5.0); Alkaline Phosphatase 74 U/L (38-126); Anion Gap 12 mmol/L; Blood Urea Nitrogen 20 mg/dL (7-17); Calcium 10.1 mg/dL (8.4-10.2); Carbon Dioxide 27 mmol/L (22-30); Chloride 101 mmol/L (98-107); Glucose 132 mg/dL (74-99); Magnesium 1.5 mg/dL (1.6-2.3); Non-African American GFR(CKD) 67 (>60 ml/min/1.73 sqM); Potassium 3.3 mmol/L (3.5-5.1); Sodium 140 mmol/L (137-145); Total Protein 6.8 g/dL (6.3-8.2)
--- NOTE | 2024-09-21 15:20 | XR ---
EXAMINATION TYPE: XR chest 2V DATE OF EXAM: 09/21/2024 3:10 PM COMPARISON: Chest x-ray August 06, 2024 CLINICAL INDICATION: Female, 74 years old with history of difficulty breathing, TECHNIQUE: Frontal and lateral views of the chest are obtained. FINDINGS: There is chronic parenchymal changes bilaterally without suspicious new focal air space op acity, pleural effusion, or pneumothorax seen. The cardiac silhouette size is stable and upper limit s of normal. The osseous structures are demineralized. IMPRESSION: Chronic changes without new acute pulmonary process. [facility], , 09/21/2024 3:17 PM
[2024-09-21 15:27] LABS: NT-Pro-B-Type Natriuretic Pept 7840 pg/mL
[2024-09-21] MEDS: POTASSIUM CHLORIDE ER 20 MEQ TAB.ER PO STA (16:29)
[2024-09-21] MEDS: ASPIRIN 81 MG PO STA (16:30)
[2024-09-21] MEDS: MAGNESIUM SULFATE-D5W PMX 1 GM in DEXTROSE/WATER 1 100ML.BAG IVPB SCH (16:31)
[2024-09-21] MEDS: IPRATROPIUM-ALBUTEROL 3 ML NEB INHALATION STA (16:42)
--- NOTE | 2024-09-21 16:56 | P.HPIM ---
History of Present Illness H&P Date: 09/21/24 History of Presenting Illness: Patient is a 74-year-old female with a past medical history of advanced COPD with chronic hypoxic respiratory failure home oxygen dependent on 4 L, severe pulmonary hypertension, infrarenal abdominal aortic aneurysm reported at approximately 6 cm and awaiting repair, hypertension, hyperlipidemia, and former smoker with > 40 pack per year history. Patient reports that she follows with Dr. Colunga, application support analyst and is scheduled to see Dr. Fontana for her ophthalmic surgeon. Patient presented to the emergency department with increasing shortness of breath x 3 days. Patient reports on Friday she began to develop worsening shortness of breath, congestion, and productive cough. She denies having any fevers, chills, dizziness, lightheadedness, diaphoresis, chest pain, palpitations, abdominal pain, back pain, nausea, vomiting, or experiencing any numbness/tingling/weakness/swelling in her extremities. She recently underwent 7-day hospitalization for RSV COPD exacerbation from 08/06/2024 through 08/13/2024. She reports going back home at her baseline and feeling at her baseline until just 3 days ago and stated symptoms rapidly worsened. Upon arrival to our facility, patient underwent evaluation in the emergency department. Vital signs upon arrival show blood pressure 102/67, heart rate 113, respiratory rate 24, temp 97.7 F, and SpO2 of 74% on 4 L. Supplemental oxygen increased to 6 L and patient maintaining SpO2 of 90% at this time. EKG completed showing sinus tachycardia with occasional PVC and mild ST depression in inferior leads II, III, and aVF. Chest x-ray completed negative for acute cardiopulmonary process. Labs completed and reviewed. CBC showing leukocytosis with WBC count of 16.4. Coagulation profile normal findings. BMP showing hypokalemia with potassium of 3.3 and mild prerenal azotemia with BUN of 20. Blood glucose with 132. Lactic acid elevated at 2.1. Magnesium was low at 1.5. Liver profile unremarkable. Troponin was elevated at 0.043 with proBNP of 7840. Patient admitted under our services with consultation to and pulmonology and cardiology. Review of systems: Pertinent positives and negatives as discussed in HPI, a complete review of systems was performed and all other systems are negative. Physical exam: Vital signs reviewed and stable. General: Nontoxic, no distress and appears stated age. Thin build. Derm: Skin warm and dry, normal coloration for ethnicity. Head: Atraumatic, normocephalic and symmetric. Eyes: EOM's intact, no lid lag, and anicteric sclera Mouth: no lip lesions, mucus membranes moist Cardiovascular: regular rate and rhythm with normal S1S2, Soft systolic murmur, positive posterior tibial pulses bilaterally, and cap refill < 2 seconds. Lungs: Respirations even, regular, and unlabored on 6 L O2 via nasal cannula. Lungs patient with diffuse expiratory wheezes. No rhonchi, rales, or crackles noted. Abdominal: soft, nontender to palpation, no guarding, no appreciable organomegaly Ext: ROM intact. No gross muscle atrophy, no edema, no contractures Neuro: Speech clear, face symmetrical and CN II-XII grossly intact with no noted focal neuro deficits Psych: Alert and oriented to person, place, time, and situation. Appropriate and pleasant affect. Assessment and Plan of Care: . Acute on chronic respiratory failure with hypoxia Advanced COPD with acute exacerbation Moderate to severe pulmonary hypertension -Consult to Pulmonology, appreciate recommendations -Oxygenation to be administered and titrated as needed to maintain SPO2 equal to or greater than 92% -Telemetry monitoring. -Monitor pulse-oximetry -Duonebs scheduled 4 times daily and as needed for SOB and/or wheezing -Incentive Spirometry -Steroids: 60 mg IVP every 8 hours -Continue Spiriva 2 puffs daily, Ranexa 20 mg 3 times daily and Symbicort 160- 4.5 mcg inhaler 2 puffs twice daily. -Order placed for Cepheid 4 Plex viral panel. Elevated troponin, likely secondary to demand ischemia resulting from hypoxia -Cardiology consulted, appreciate recommendations -Telemetry monitoring -Trend troponins -Aspirin 324 mg p.o. x 1 dose followed by aspirin 81 mg daily and atorvastatin 40 mg daily. Infrarenal abdominal aortic aneurysm -Patient denies having any complaints including abdominal pain, back pain, experiencing any numbness/tingling/weakness in her extremities. She reports that she has to undergo further evaluation for repair and is scheduled to follow-up outpatient with Dr. Fontana to further discuss. Hypomagnesemia -Magnesium 1.5. Orders placed for magnesium sulfate 2 g IVPB x 1 dose. Will continue to monitor with repeat a.m. labs. Hypokalemia -Order placed for K-Dur 40 mEq p.o. x 1 dose. Will continue to monitor with repeat a.m. labs and replace abnormal electrolyte values if indicated based upon these findings. Hypertension -Monitor vital signs and continue daily medication regimen with amlodipine 2.5 mg daily. Hyperlipidemia -Continue daily medication regimen with atorvastatin 40 mg daily. Anxiety and depression -Continue Zoloft 50 mg daily. Data and imaging reviewed. As stated above in HPI The patient is admitted with an anticipated greater than 2 midnight stay for evaluation of acute on chronic hypoxic respiratory failure secondary to COPD exacerbation CODE STATUS: Full code DVT prophylaxis: Lovenox Discussed with: ED physician, RN, patient, patient's family at bedside Anticipated discharge date: Pending clinical course Anticipated discharge place: Pending clinical course Patient was seen independently by Nurse Practitioner. This document was prepared using [employer] dictation software. Please allow for errors in data technician while rare they do occur. Tani Shah NP rendered care for this patient independently, reviewed the findings and plan as documented in the note above and agree with plan. I did not physically speak with or examine the patient on this date. Past Medical History Past Medical History: COPD, Hyperlipidemia, Hypertension, Respiratory Disorder Additional Past Medical History / Comment(s): Aortic aneurysm. Pulmonary Hypertension History of Any Multi-Drug Resistant Organisms: None Reported Past Surgical History: Breast Surgery, Hysterectomy Additional Past Surgical History / Comment(s): Knee replacement. Wrist surgery. Cataract surgery Past Anesthesia/Blood Transfusion Reactions: No Reported Reaction Past Psychological History: Depression Smoking Status: Former smoker Past Alcohol Use History: None Reported Past Drug Use History: None Reported - Past Family History Mother Family Medical History: Cancer, Diabetes Mellitus Additional Family Medical History / Comment(s): from lung cancer Father Additional Family Medical History / Comment(s): from brain aneurysm Medications and Allergies Home Medications Medication Instructions Recorded Confirmed Type Aspirin EC [Ecotrin Low Dose] 81 mg PO DAILY 08/06/24 09/21/24 History Atorvastatin [Lipitor] 40 mg PO DAILY 08/06/24 09/21/24 History Cetirizine HCl [Zyrtec] 10 mg PO DAILY 08/06/24 09/21/24 History Dicyclomine [Bentyl] 10 mg PO TID 08/06/24 09/21/24 History Ergocalciferol [Vitamin D2 (1250 1,250 mcg PO MO 08/06/24 09/21/24 History Mcg = 56556 Iu)] Fluticasone/Umeclidin/Vilanter 1 puff INHALATION RT-DAILY 08/06/24 09/21/24 History [Trelegy Ellipta 200-62.5-25] Furosemide [Lasix] 20 mg PO DAILY 08/06/24 09/21/24 History Ipratropium-Albuterol Nebulize 3 ml INHALATION RT-QID PRN 08/06/24 09/21/24 History [Duoneb 0.5 mg-3 mg/3 ml Soln] Ipratropium/Albuter 20-100Mcg 1 puff INHALATION RT-QID 08/06/24 09/21/24 History [Combivent Respimat 20-100Mcg Inhaler] [place] 20mg 20 mg PO DAILY 08/06/24 09/21/24 History Sertraline [Zoloft] 50 mg PO DAILY 08/06/24 09/21/24 History amLODIPine [Norvasc] 2.5 mg PO DAILY PRN 08/06/24 09/21/24 History Acetaminophen Tab [Tylenol] 650 mg PO Q4HR PRN tab 08/13/24 09/21/24 Rx Pantoprazole [Protonix] 40 mg PO AC-BRKFST #30 tab 08/13/24 09/21/24 Rx Sildenafil [Revatio] 20 mg PO TID #90 tab 08/13/24 09/21/24 Rx guaiFENesin [Mucinex] 1,200 mg PO BID #30 tab 08/13/24 09/21/24 Rx predniSONE 5 mg PO Q48H 09/21/24 09/21/24 History predniSONE 10 mg PO Q48H 09/21/24 09/21/24 History Allergies Allergy/AdvReac Type Severity Reaction Status Date / Time levofloxacin [From Levaquin] Allergy Unknown Verified 09/21/24 15:11 tetracycline Allergy Unknown Verified 09/21/24 15:11 Physical Exam Vitals: Vital Signs Temp Pulse Resp BP Pulse Ox 09/21/24 16:54 100 09/21/24 16:42 100 09/21/24 16:39 96 24 115/84 89 L 09/21/24 14:51 24 90 L 09/21/24 14:30 24 87 L 09/21/24 13:58 97.7 F 113 H 24 102/67 74 L Intake and Output 09/21/24 09/21/24 09/21/24 06:59 14:59 22:59 Other: Weight 59.421 kg Results CBC & Chem 7: 09/21/24 14:49 09/21/24 14:49 Labs: Abnormal Lab Results - Last 24 Hours (Table) 09/21/24 09/21/24 09/21/24 Range/Units 14:49 14:49 14:49 WBC 16.4 H (3.8-10.6) k/uL RDW 16.5 H (11.5-15.5) % Neutrophils # 14.5 H (1.3-7.7) k/uL Potassium 3.3 L (3.5-5.1) mmol/L BUN 20 H (7-17) mg/dL Glucose 132 H (74-99) mg/dL Plasma Lactic Acid Yunior 2.1 H* (0.7-2.0) mmol/L Magnesium 1.5 L (1.6-2.3) mg/dL Troponin I (0.000-0.034) ng/mL 09/21/24 Range/Units 14:49 WBC (3.8-10.6) k/uL RDW (11.5-15.5) % Neutrophils # (1.3-7.7) k/uL Potassium (3.5-5.1) mmol/L BUN (7-17) mg/dL Glucose (74-99) mg/dL Plasma Lactic Acid Yunior (0.7-2.0) mmol/L Magnesium (1.6-2.3) mg/dL Troponin I 0.043 H* (0.000-0.034) ng/mL
[2024-09-21] MEDS ORDERED: MELATONIN 3 MG TABLET PO PRN (16:58)
[2024-09-21] MEDS ORDERED: NALOXONE 0.4 MG/ML 1 ML VIAL IV PRN ×2 (16:58→17:08)
[2024-09-21] MEDS ORDERED: HYDROcodone/APAP 5-325MG 1 EACH TAB PO PRN (16:58)
[2024-09-21] MEDS ORDERED: amLODIPine 2.5 MG TAB PO PRN (17:00)
[2024-09-21] MEDS ORDERED: IPRATROPIUM-ALBUTEROL 3 ML NEB INHALATION PRN (17:00)
[2024-09-21] MEDS ORDERED: ONDANSETRON 4 MG/2 ML VIAL IVP PRN (17:08)
[2024-09-21] MEDS: MAGNESIUM OXIDE 400 MG TAB PO STA ×2 (17:20→17:21)
[2024-09-21] MEDS: SODIUM CHLORIDE 0.9% 1,000 ML IV SCH (17:21)
[2024-09-21 18:14] LABS: Influenza A Not Detected (Not Detectd); Influenza B Not Detected (Not Detectd); RSV Not Detected (Not Detectd)
[2024-09-21] MEDS: POTASSIUM BICARBONATE/CIT AC 20 MEQ TABLET.EFF PO ONE (18:21)
[2024-09-21] MEDS ORDERED: ALBUTEROL NEBULIZED 2.5 MG/3 ML INHALATION SCH (20:00)
[2024-09-21] MEDS ORDERED: IPRATROPIUM-ALBUTEROL 3 ML NEB INHALATION SCH (20:00)
[2024-09-21] MEDS ORDERED: NON FORMULARY DRUG (Ipratropium/Albuter 20-100mcg 120 PUFF Each) INHALATION SCH (20:00)
[2024-09-21] MEDS: IPRATROPIUM-ALBUTEROL 3 ML NEB INHALATION SCH (20:02)
[2024-09-21] MEDS: MAGNESIUM SULFATE-D5W PMX 1 GM in DEXTROSE/WATER 1 100ML.BAG IVPB ONE (20:06)
[2024-09-21] MEDS: guaiFENesin 600 MG TABLET.ER PO SCH (20:59)
[2024-09-21] MEDS: SILDENAFIL 20 MG TAB PO SCH (21:18)
[2024-09-21] MEDS: DICYCLOMINE 10 MG CAP PO SCH (21:18)
[2024-09-21] MEDS: methylPREDNISolone SOD SUCCI 125 MG/2 ML VIAL IV SCH (21:20)
[2024-09-22] MEDS: AZITHROMYCIN 500 MG TAB PO STA (01:30)
[2024-09-22] MEDS: MORPHINE SULFATE 4 MG/ML SYRINGE IV PRN (02:00)
--- NOTE | 2024-09-22 02:50 | P.CNPUL ---
History of Present Illness Consult date: 09/22/24 Requesting physician: Tani Shah Reason for consult: COPD Chief complaint: Difficulty in breathing History of present illness: Patient is a 74-year-old female with past medical history significant for COPD. Normally oxygen dependent on, 4 L/min nasal cannula 17/02. Also, takes a daily prednisone 10 mg tablet. Does follow in the pulmonary office with Dr. Colunga. She is maintained on Trelegy Ellipta inhaler daily. Her primary care provider is Dr. Chopra. She also has past medical history significant for pulmonary hypertension, systemic hypertension, AAA, and peripheral vascular disease. Of note, patient recently hospitalized in July, for RSV tracheobronchitis and COPD exacerbation. Returns to the emergency department yesterday afternoon complaining of acute on chronic dyspnea. States that her oxygen saturations are continuously less than 85% while resting and dropping down to the 60s during activity. She has been lightheaded with activity no significant change in her coughing or sputum purulence. No fevers or chills. Does endorse runny nose and sore throat. Occasional nosebleeds, that she attributes to her nasal cannula. Denies any chest pain, heart palpitations, syncopal events, lower extremity edema. She was tachycardic, tachypneic, and hypoxic on arrival. Placed on 6 L/min nasal cannula. Workup in the ED including a chest x-ray which does not show any acute cardiopulmonary process, chronic parenchymal changes noted bilaterally. No focal airspace opacities, pleural effusions, pneumothoraces. CBC: WBC count 16.4, hemoglobin 13.8, platelets 242. CMP: Sodium 140, potassium 3.3, chloride 101, serum bicarb 27, BUN 20, creatinine 0.87, glucose 132. Lactic 1.2. D-dimer 1.62. Serial troponins elevated 0.04, 0.04, 0.036, and 0.027. NT proBNP 7840. Recent echocardiogram done during a hospitalization in July, demonstrating preserved left ventricular ejection fraction of 55%, severe RV dilation/dysfunction, pulmonary hypertension with an RVSP of 67, mild mitral regurgitation and moderate tricuspid regurgitation. Viral screen negati ve for influenza A/B, RSV, COVID. Patient currently being evaluated in the ED, endorses above-mentioned symptoms. She is on 6 L/min nasal cannula. SpO2 reading 88%. Not particularly distressed. Current vital signs are stable. Review of Systems Constitutional: Reports poor appetite, Denies chills, Denies fever, Denies sweats, Denies weight gain, Denies weight loss Ears, nose, mouth and throat: Reports nasal congestion, Reports sore throat, Denies headache, Denies nasal discharge, Denies post-nasal drip, Denies sinus pain, Denies sinus pressure Cardiovascular: Reports as per HPI Respiratory: Reports as per HPI Gastrointestinal: Denies abdominal pain, Denies change in bowel habits, Denies diarrhea, Denies nausea, Denies vomiting Genitourinary: Denies dysuria Musculoskeletal: Denies limitation of motion Integumentary: Denies rash Neurological: Denies seizures, Denies syncope Psychiatric: Reports anxiety, Reports depression, Denies suicidal ideation Past Medical History Past Medical History: COPD, Hyperlipidemia, Hypertension, Respiratory Disorder Additional Past Medical History / Comment(s): Aortic aneurysm. Pulmonary Hypertension History of Any Multi-Drug Resistant Organisms: None Reported Past Surgical History: Breast Surgery, Hysterectomy Additional Past Surgical History / Comment(s): Knee replacement. Wrist surgery. Cataract surgery Past Anesthesia/Blood Transfusion Reactions: No Reported Reaction Past Psychological History: Depression Smoking Status: Former smoker Past Alcohol Use History: None Reported Past Drug Use History: None Reported - Past Family History Mother Family Medical History: Cancer, Diabetes Mellitus Additional Family Medical History / Comment(s): from lung cancer Father Additional Family Medical History / Comment(s): from brain aneurysm Medications and Allergies Home Medications Medication Instructions Recorded Confirmed Type Aspirin EC [Ecotrin Low Dose] 81 mg PO DAILY 08/06/24 09/21/24 History Atorvastatin [Lipitor] 40 mg PO DAILY 08/06/24 09/21/24 History Cetirizine HCl [Zyrtec] 10 mg PO DAILY 08/06/24 09/21/24 History Dicyclomine [Bentyl] 10 mg PO TID 08/06/24 09/21/24 History Ergocalciferol [Vitamin D2 (1250 1,250 mcg PO MO 08/06/24 09/21/24 History Mcg = 88706 Iu)] Fluticasone/Umeclidin/Vilanter 1 puff INHALATION RT-DAILY 08/06/24 09/21/24 History [Trelegy Ellipta 200-62.5-25] Furosemide [Lasix] 20 mg PO DAILY 08/06/24 09/21/24 History Ipratropium-Albuterol Nebulize 3 ml INHALATION RT-QID PRN 08/06/24 09/21/24 History [Duoneb 0.5 mg-3 mg/3 ml Soln] Ipratropium/Albuter 20-100Mcg 1 puff INHALATION RT-QID 08/06/24 09/21/24 History [Combivent Respimat 20-100Mcg Inhaler] [place] 20mg 20 mg PO DAILY 08/06/24 09/21/24 History Sertraline [Zoloft] 50 mg PO DAILY 08/06/24 09/21/24 History amLODIPine [Norvasc] 2.5 mg PO DAILY PRN 08/06/24 09/21/24 History Acetaminophen Tab [Tylenol] 650 mg PO Q4HR PRN tab 08/13/24 09/21/24 Rx Pantoprazole [Protonix] 40 mg PO AC-BRKFST #30 tab 08/13/24 09/21/24 Rx Sildenafil [Revatio] 20 mg PO TID #90 tab 08/13/24 09/21/24 Rx guaiFENesin [Mucinex] 1,200 mg PO BID #30 tab 08/13/24 09/21/24 Rx predniSONE 5 mg PO Q48H 09/21/24 09/21/24 History predniSONE 10 mg PO Q48H 09/21/24 09/21/24 History Allergies Allergy/AdvReac Type Severity Reaction Status Date / Time levofloxacin [From Levuin] Allergy Unknown Verified 09/21/24 15:11 tetracycline Allergy Unknown Verified 09/21/24 15:11 Physical Exam Vitals: Vital Signs Temp Pulse Resp BP Pulse Ox 09/22/24 00:15 92 15 123/70 90 L 09/22/24 00:02 91 24 123/73 90 L 09/21/24 23:51 89 09/21/24 23:38 87 09/21/24 21:00 93 22 110/67 89 L 09/21/24 20:16 91 L 09/21/24 20:13 94 09/21/24 20:02 94 09/21/24 18:57 105 H 22 121/84 87 L 09/21/24 16:54 100 09/21/24 16:42 100 09/21/24 16:39 96 24 115/84 89 L 09/21/24 14:51 24 90 L 09/21/24 14:30 24 87 L 09/21/24 13:58 97.7 F 113 H 24 102/67 74 L Intake and Output 09/21/24 09/21/24 09/22/24 14:59 22:59 06:59 Other: Weight 59.421 kg GENERAL EXAM: Alert, 74-year-old white female, on 6 L/min nasal cannula, not particularly distressed. HEAD: Normocephalic and atraumatic EYES: Normal reaction of pupils, equal size. Nonicteric sclera. No nystagmus. NOSE: Clear with pink turbinates. THROAT: No erythema or exudates. NECK: No masses, no JVD. No carotid bruit with strong palpable pulse bilaterally CHEST: No chest wall deformity. LUNGS: Equal air entry with no crackles, wheeze, rhonchi or dullness. no conversational dyspnea or accessory muscle use while at rest CVS: S1 and S2 normal with no audible murmur, regular rhythm. No extra heart sounds ABDOMEN: No hepatosplenomegaly, active bowel sounds, no guarding or rigidity. SPINE: No scoliosis or deformity SKIN: No rashes CENTRAL NERVOUS SYSTEM: Alert and oriented, cranial nerves II through XII intact, tone is normal in all 4 extremities. EXTREMITIES: There is no peripheral edema, clubbing, or cyanosis. Peripheral pulses are intact. Results - Laboratory Findings CBC and BMP: 09/21/24 14:49 09/21/24 14:49 PT/INR, D-dimer PT 11.1 sec (10.0-12.5) 09/21/24 14:49 INR 1.0 (<1.2) 09/21/24 14:49 D-Dimer 1.62 mg/L FEU (<0.60) H 09/22/24 00:18 Abnormal lab findings: Abnormal Labs 09/21/24 09/21/24 09/21/24 14:49 14:49 14:49 WBC 16.4 H RDW 16.5 H Neutrophils # 14.5 H D-Dimer Potassium 3.3 L BUN 20 H Glucose 132 H Plasma Lactic Acid Yunior 2.1 H* Magnesium 1.5 L Troponin I 09/21/24 09/21/24 09/21/24 14:49 17:26 20:12 WBC RDW Neutrophils # D-Dimer Potassium BUN Glucose Plasma Lactic Acid Yunior Magnesium Troponin I 0.043 H* 0.040 H* 0.036 H* 09/22/24 00:18 WBC RDW Neutrophils # D-Dimer 1.62 H Potassium BUN Glucose Plasma Lactic Acid Yunior Magnesium Troponin I - Diagnostic Findings Chest x-ray: image reviewed Assessment and Plan Assessment: Acute on chronic hypoxemic respiratory failure, currently on 6 L/min nasal cannula, chest x-ray which does not show any acute cardiopulmonary process, chronic parenchymal changes noted bilaterally. No focal airspace opacities, pleural effusions, pneumothoraces. Acute leukocytosis Acute on chronic dyspnea Acute COPD exacerbation Oxygen and steroid-dependent chronic obstructive pulmonary disease Chronic oxygen dependence, normally maintained on 4 L/min nasal cannula Elevated troponins, downtrending, likely secondary to supply/demand mismatch Pulmonary hypertension, suspect group 3 Recent hospitalization for RSV tracheobronchitis Abdominal aortic aneurysm, follows with vascular outpatient surgery Systemic hypertension Peripheral vascular disease and carotid artery stenosis Former tobacco smoker Anxiety/depression Plan: Continue supplemental oxygen maintain oxygen saturation of 88% or greater Chest x-ray reviewed, no obvious focal infiltrates or evidence of pneumonia Continue combination of bronchodilators, Symbicort inhaler, Spiriva, and IV Solu-Medrol. May substitute Trelegy inhaler for if made available Started on azithromycin empirically D-dimer was elevated, CT angio protocol was ordered We will continue to follow I have personally seen and examined the patient, performed the documentation and the assessment and plan as written. Number of minutes spent on the visit:20 Time with Patient: Greater than 30
--- NOTE | 2024-09-22 06:06 | CT ---
EXAMINATION TYPE: CT chest angio for PE DATE OF EXAM: 09/22/2024 COMPARISON: Chest x-ray from one day earlier HISTORY: elevated d-dimer and shortness of breath CT DLP: 264.3 mGycm. Automated Exposure Control for Dose Reduction was Utilized. CONTRAST: CTA scan of the thorax is performed with IV Contrast, patient injected with 100ml mL of Isovue 370, p ulmonary embolism protocol. MIP Images are created on CT scanner and reviewed. FINDINGS: LUNGS: Bilateral moderate emphysematous changes greatest in the upper lungs with peripheral reticulat ion and fibrosis bilaterally involving both upper and lower lungs. Some areas of more prominent focal scarring for example in the lingula near axial image 78 are noted. No pleural effusion or pneumothor ax is present bilaterally. No suspicious focal consolidation or masses. MEDIASTINUM: There is satisfactory enhancement of the pulmonary artery and its branches, there is no CT evidence for pulmonary embolism. Prominent main pulmonary artery of 3.1 cm raising concern for und erlying pulmonary artery hypertension. Some enhancement of the aorta without aneurysm or dissection. Prominent subcarinal lymph node measuring 2.4 x 1.8 cm axial image 96. There is mild cardiomegaly wit h at least moderate right ventricular dilatation. Coronary artery calcification is noted. There is mi ld right atrial dilatation. OTHER: Large internal gallstone is partially imaged. There is a AAA measuring 4.7 cm AP diameter axia l image 174 partially imaged. Slight scoliotic curvature in the thoracic spine. Right breast implant is noted. IMPRESSION: 1. No CT evidence for acute pulmonary embolism. 2. Moderate emphysematous and diffuse bilateral pulmonary fibrotic changes. No acute pulmonary proces s. 3. Mild cardiomegaly with at least moderate right ventricular dilatation. Right heart failure is susp ected. Suspect underlying pulmonary artery hypertension. Correlate clinically. 4. At least 4.7 cm infrarenal AAA. Advise ultrasound follow-up to further evaluate if this is not kno wn finding. [facility], , 09/22/2024 6:04 AM
--- NOTE | 2024-09-22 06:07 | XR ---
EXAMINATION TYPE: XR chest 1V DATE OF EXAM: 09/22/2024 CLINICAL HISTORY: Cough progress study. TECHNIQUE: Single AP portable upright view of the chest is obtained. COMPARISON: Chest x-ray from one day earlier. Same-day chest CT. FINDINGS: There is chronic parenchymal changes bilaterally without suspicious new focal air space op acity, pleural effusion, or pneumothorax seen. The cardiac silhouette size is stable and mildly enla rged. The osseous structures are demineralized. IMPRESSION: Chronic parenchymal fibrotic changes changes without new acute pulmonary process. [facility], , 09/22/2024 6:05 AM
[2024-09-22 06:42] LABS: ALT 13 U/L (4-34); AST 32 U/L (14-36); African American GFR (CKD) >90 (>60 ml/min/1.73 sqM); Albumin 3.6 g/dL (3.5-5.0); Alkaline Phosphatase 50 U/L (38-126); Anion Gap 9 mmol/L; Blood Urea Nitrogen 19 mg/dL (7-17); Carbon Dioxide 24 mmol/L (22-30); Chloride 101 mmol/L (98-107); Glucose 152 mg/dL (74-99); Magnesium 2.3 mg/dL (1.6-2.3); Non-African American GFR(CKD) 82 (>60 ml/min/1.73 sqM); Sodium 134 mmol/L (137-145); Total Bilirubin 1.1 mg/dL (0.2-1.3); Total Protein 6.3 g/dL (6.3-8.2)
[2024-09-22 06:57] LABS: HCT 38.4 % (34.0-46.0); HGB 11.8 gm/dL (11.4-16.0); Hypochromasia Moderate; MCH 29.2 pg (25.0-35.0); MCHC 30.7 g/dL (31.0-37.0); MCV 94.9 fL (80.0-100.0); Mean Platelet Volume 8.7; Platelet Count 226 k/uL (150-450); RBC 4.05 m/uL (3.80-5.40); WBC 10.8 k/uL (3.8-10.6)
[2024-09-22 07:12] LABS: Basophils % (A) 0 %; Eosinophils % (A) 0 %; HCT 43.2 % (34.0-46.0); Hypochromasia Marked; Lymphocytes # (A) 0.6 k/uL (1.0-4.8); Lymphocytes % (A) 5 %; MCH 28.8 pg (25.0-35.0); MCV 96.1 fL (80.0-100.0); Mean Platelet Volume 8.4; Monocytes # (A) 0.4 k/uL (0-1.0); Monocytes % (A) 4 %; Neutrophils # (A) 10.2 k/uL (1.3-7.7); Neutrophils % (A) 90 %; Platelet Count 252 k/uL (150-450); WBC 11.3 k/uL (3.8-10.6)
[2024-09-22] MEDS: TIOTROPIUM 2.5 MCG INHALER INHALATION SCH (07:31)
[2024-09-22] MEDS: SYMBICORT 160-4.5 MCG INHALER INHALATION SCH (07:31)
[2024-09-22] MEDS: TRELEGY ELLIPTA INHALATION SCH (08:17)
[2024-09-22] MEDS ORDERED: ALPRAZolam 0.25 MG TAB PO PRN (08:30)
[2024-09-22] MEDS ORDERED: NITROGLYCERIN SL TABS 0.4 MG TAB SUBLINGUAL PRN (08:30)
[2024-09-22] MEDS ORDERED: ALPRAZolam 0.5 MG TAB PO PRN (08:30)
[2024-09-22] MEDS: FUROSEMIDE 20 MG TAB PO SCH (08:37)
[2024-09-22] MEDS: PANTOPRAZOLE 40 MG TABLET PO SCH (08:37)
[2024-09-22] MEDS: ASPIRIN 81 MG PO SCH (08:37)
[2024-09-22] MEDS: ATORVASTATIN 40 MG TAB PO SCH (08:37)
[2024-09-22] MEDS: SERTRALINE 50 MG TAB PO SCH (08:37)
[2024-09-22] MEDS: AZITHROMYCIN 500 MG TAB PO SCH (08:37)
[2024-09-22] MEDS: ENOXAPARIN 40 MG/0.4 ML SYRINGE SQ SCH (08:38)
[2024-09-22] MEDS: LORATADINE 10 MG TAB PO SCH (08:38)
--- NOTE | 2024-09-22 08:45 | P.CRDCN ---
History of Present Illness Consult date: 09/22/24 Reason for Consult (text): Elevated troponin likely due to hypoxia History of present illness: This is a 74-year-old female patient previously seen Dr. Burgess with plan to move over to Dr. Fontana's practice and has an appointment scheduled at the [place] office. She has a past medical history of AAA approximately 6 cm awaiting repair, pulmonary hypertension, carotid stenosis, COPD, chronic hypoxic respiratory failure on home oxygen at 4 L nasal cannula. We have been asked to evaluate the patient for elevated troponin likely due to hypoxia. Patient presented to the hospital with a pulse ox of 74%. Patient states that for the past 3 days she has had increasing shortness of breath especially with minimal activity her pulse ox was dropping down to the 60s and 70s. She also feels dizzy at the time and needs to stop and put her head down and rest. She denies any fever or chills. She states her blood pressure at home usually runs under 100 systolic. Currently blood pressure 123/76, heart rate 93, pulse ox 88% on 7 L nasal cannula. Patient is seen today in the emergency center waiting for bed on the cardiac stepdown unit. Patient had an admission in July and at that time she was started on Revatio 20 mg 3 times daily. Patient's not sure she has had any significant improvement of her breathing status with this. Dr. Fontana discussed with patient the recommendations for cardiac catheterization and she is agreeable to move forward with this. It will be scheduled for tomorrow. -EKG: Sinus tachycardia 108 bpm with incomplete right bundle branch block -Chest x-ray: Chronic changes. -CTA of the chest no PE. Moderate emphysema and diffuse pulmonary fibrosis. Mild cardiomegaly, RV dilatation, 4.7 cm infrarenal AAA. -Laboratory studies: WBC 11.3, hemoglobin 13, D-dimer 1.62, sodium 134, potassium potassium 5, CO2 24, BUN 19 and creatinine 0.74. Troponin 0.043, 0.040, 0.036 and 0.027. proBNP 7840. Cepheid viral panel negative. -Home cardiac medications: Amlodipine 2.5 mg daily, aspirin 81 mg daily, atorv astatin 40 mg daily, Lasix 20 mg daily, Revatio 20 mg 3 times daily. -Echocardiogram performed in July revealed EF of 55%, RVSP 67, mild MR, moderate TR. Review Of Systems: At the time of my exam: CONSTITUTIONAL: Denies fever or chills. Reports dizziness with activity HEENT: Denies blurred vision, vision changes, or eye pain. Denies hemoptysis CARDIOVASCULAR: Denies chest pain. Denies orthopnea. Denies PND. Denies palpitations RESPIRATORY: Reports dyspnea on exertion, reports shortness of breath. GASTROINTESTINAL: Denies abdominal pain. Denies nausea or vomiting. HEMATOLOGIC: Denies bleeding disorders. GENITOURINARY: Denies any blood in urine. SKIN: Denies puritis. Denies rash. Physical examination: Gen: This is a 74-year-old female and appears to be comfortable at rest. VS: reviewed HEENT: Head is atraumatic, normocephalic. Pupils equal, round. Sclerae is anicteric. NECK: Supple. No JVD. LUNGS: Diminished breath sounds bilaterally hi. No intercostal retractions. HEART: Regular rate and rhythm. No murmur. ABDOMEN: Soft No tenderness. EXTREMITIES: No pedal edema. No calf tenderness. NEUROLOGICAL: Patient is awake, alert and oriented x3. Assessment: Elevated troponin, most likely due to type II NSTEMI from hypoxia Acute on chronic hypoxic respiratory failure COPD exacerbation Pulmonary hypertension Carotid stenosis AAA Plan: Resume patient's home cardiac medications Continue heparin drip Schedule patient for left and right heart catheterization tomorrow with Dr. Fontana N.p.o. after midnight No need to repeat echocardiogram Further recommendations to follow based upon clinical course Thank you kindly for this consultation. Nurse practitioner note has been reviewed, I agree with documented findings and plan of care. Patient was seen and examined. Past Medical History Past Medical History: COPD, Hyperlipidemia, Hypertension, Respiratory Disorder Additional Past Medical History / Comment(s): Aortic aneurysm. Pulmonary Hypertension History of Any Multi-Drug Resistant Organisms: None Reported Past Surgical History: Breast Surgery, Hysterectomy Additional Past Surgical History / Comment(s): Knee replacement. Wrist surgery. Cataract surgery Past Anesthesia/Blood Transfusion Reactions: No Reported Reaction Past Psychological History: Depression Smoking Status: Former smoker Past Alcohol Use History: None Reported Past Drug Use History: None Reported - Past Family History Mother Family Medical History: Cancer, Diabetes Mellitus Additional Family Medical History / Comment(s): from lung cancer Father Additional Family Medical History / Comment(s): from brain aneurysm Medications and Allergies Home Medications Medication Instructions Recorded Confirmed Type Aspirin EC [Ecotrin Low Dose] 81 mg PO DAILY 08/06/24 09/21/24 History Atorvastatin [Lipitor] 40 mg PO DAILY 08/06/24 09/21/24 History Cetirizine HCl [Zyrtec] 10 mg PO DAILY 08/06/24 09/21/24 History Dicyclomine [Bentyl] 10 mg PO TID 08/06/24 09/21/24 History Ergocalciferol [Vitamin D2 (1250 1,250 mcg PO MO 08/06/24 09/21/24 History Mcg = [id number] Iu)] Fluticasone/Umeclidin/Vilanter 1 puff INHALATION RT-DAILY 08/06/24 09/21/24 History [Trelegy Ellipta 200-62.5-25] Furosemide [Lasix] 20 mg PO DAILY 08/06/24 09/21/24 History Ipratropium-Albuterol Nebulize 3 ml INHALATION RT-QID PRN 08/06/24 09/21/24 History [Duoneb 0.5 mg-3 mg/3 ml Soln] Ipratropium/Albuter 20-100Mcg 1 puff INHALATION RT-QID 08/06/24 09/21/24 History [Combivent Respimat 20-100Mcg Inhaler] [place] 20mg 20 mg PO DAILY 08/06/24 09/21/24 History Sertraline [Zoloft] 50 mg PO DAILY 08/06/24 09/21/24 History amLODIPine [Norvasc] 2.5 mg PO DAILY PRN 08/06/24 09/21/24 History Acetaminophen Tab [Tylenol] 650 mg PO Q4HR PRN tab 08/13/24 09/21/24 Rx Pantoprazole [Protonix] 40 mg PO AC-BRKFST #30 tab 08/13/24 09/21/24 Rx Sildenafil [Revatio] 20 mg PO TID #90 tab 08/13/24 09/21/24 Rx guaiFENesin [Mucinex] 1,200 mg PO BID #30 tab 08/13/24 09/21/24 Rx predniSONE 5 mg PO Q48H 09/21/24 09/21/24 History predniSONE 10 mg PO Q48H 09/21/24 09/21/24 History Allergies Allergy/AdvReac Type Severity Reaction Status Date / Time [facility] Allergy Unknown Verified 09/21/24 15:11 tetracycline Allergy Unknown Verified 09/21/24 15:11 Physical Exam Vitals: Vital Signs Temp Pulse Resp BP Pulse Ox 09/22/24 07:35 88 L 09/22/24 07:33 93 09/22/24 06:17 96 18 123/76 87 L 09/22/24 03:40 92 20 118/73 86 L 09/22/24 03:14 87 93 L 09/22/24 03:01 85 09/22/24 02:51 89 18 123/70 83 L 09/22/24 00:15 92 15 123/70 90 L 09/22/24 00:02 91 24 123/73 90 L 09/21/24 23:51 89 09/21/24 23:38 87 09/21/24 21:00 93 22 110/67 89 L 09/21/24 20:16 91 L 09/21/24 20:13 94 09/21/24 20:02 94 09/21/24 18:57 105 H 22 121/84 87 L 09/21/24 16:54 100 09/21/24 16:42 100 09/21/24 16:39 96 24 115/84 89 L 09/21/24 14:51 24 90 L 09/21/24 14:30 24 87 L 09/21/24 13:58 97.7 F 113 H 24 102/67 74 L Results 09/22/24 06:24 09/22/24 06:14 Cardiac Enzymes 09/21/24 09/21/24 09/21/24 Range/Units 14:49 14:49 17:26 AST 22 (14-36) U/L Troponin I 0.043 H* 0.040 H* (0.000-0.034) ng/mL 09/21/24 09/21/24 09/22/24 Range/Units 20:12 23:10 06:14 AST 32 (14-36) U/L Troponin I 0.036 H* 0.027 (0.000-0.034) ng/mL Coagulation 09/21/24 Range/Units 14:49 PT 11.1 (10.0-12.5) sec APTT 24.7 (22.0-30.0) sec CBC 09/21/24 09/22/24 09/22/24 Range/Units 14:49 06:14 06:24 WBC 16.4 H 10.8 H 11.3 H (3.8-10.6) k/uL RBC 4.69 4.05 4.50 (3.80-5.40) m/uL Hgb 13.8 11.8 13.0 (11.4-16.0) gm/dL Hct 44.2 38.4 43.2 (34.0-46.0) % Plt Count 242 226 252 (150-450) k/uL Comprehensive Metabolic Panel 09/21/24 09/22/24 Range/Units 14:49 06:14 Sodium 140 134 L (137-145) mmol/L Potassium 3.3 L 5.0 (3.5-5.1) mmol/L Chloride 101 101 (98-107) mmol/L Carbon Dioxide 27 24 (22-30) mmol/L BUN 20 H 19 H (7-17) mg/dL Creatinine 0.87 0.74 (0.52-1.04) mg/dL Glucose 132 H 152 H (74-99) mg/dL Calcium 10.1 9.0 (8.4-10.2) mg/dL AST 22 32 (14-36) U/L ALT 14 13 (4-34) U/L Alkaline Phosphatase 74 50 (38-126) U/L Total Protein 6.8 6.3 (6.3-8.2) g/dL Albumin 4.2 3.6 (3.5-5.0) g/dL Current Medications Generic Name Dose Route Start Last Admin Trade Name Freq PRN Reason Stop Dose Admin Acetaminophen 650 mg 09/21/24 16:58 Acetaminophen Tab 325 Mg Tab PO Q6HR PRN Mild Pain or Fever > 100.5 Hydrocodone Bitart/Acetaminophen 1 each 09/21/24 16:58 Hydrocodone/Apap 5-325mg 1 Each Tab PO Q4HR PRN Moderate Pain (Scale 4 to 6) Albuterol/Ipratropium 3 ml 09/21/24 17:00 Ipratropium-Albuterol 3 Ml Neb INHALATION RT-QID PRN Shortness Of Breath Albuterol/Ipratropium 3 ml 09/21/24 20:00 09/22/24 07:30 Ipratropium-Albuterol 3 Ml Neb INHALATION 3 ml RT-Q4H ILA Administration Amlodipine Besylate 2.5 mg 09/21/24 17:00 Amlodipine 2.5 Mg Tab PO DAILY PRN SBP>160 Aspirin 81 mg 09/22/24 09:00 Aspirin 81 Mg PO DAILY [facility] Atorvastatin Calcium 40 mg 09/22/24 09:00 Atorvastatin 40 Mg Tab PO DAILY [facility] Azithromycin 500 mg 09/22/24 09:00 Azithromycin 500 Mg Tab PO 09/24/24 09:01 DAILY [facility] Protocol Budesonide/Formoterol Fumarate 2 puff 09/22/24 08:00 09/22/24 07:31 Symbicort 160-4.5 Mcg Inhaler INHALATION 2 puff RT-BID ILA Administration Dicyclomine HCl 10 mg 09/21/24 22:00 09/21/24 21:18 Dicyclomine 10 Mg Cap PO 10 mg TID ILA Administration Enoxaparin Sodium 40 mg 09/22/24 09:00 Enoxaparin 40 Mg/0.4 Ml Syringe SQ DAILY [facility] Ergocalciferol 1,250 mcg 09/27/24 09:00 Ergocalciferol 1,250 Mcg (50,000 Iu) Capsule PO MO [facility] Furosemide 20 mg 09/22/24 09:00 Furosemide 20 Mg Tab PO DAILY [facility] Guaifenesin 1,200 mg 09/21/24 21:00 09/21/24 20:59 Guaifenesin 600 Mg Tablet.Er PO 1,200 mg BID ILA Administration Sodium Chloride 1,000 mls @ 75 mls/hr 09/21/24 17:15 09/22/24 06:16 Saline 0.9% IV 75 mls/hr .[id number] ILA Administration Loratadine 10 mg 09/22/24 09:00 Loratadine 10 Mg Tab PO DAILY [facility] Melatonin 3 mg 09/21/24 16:58 Melatonin 3 Mg Tablet PO HS PRN Insomnia Methylprednisolone Sodium Succinate 60 mg 09/21/24 22:00 09/22/24 06:06 Methylprednisolone Sod Succi 125 Mg/2 Ml Vial IV 60 mg Q8H ILA Administration Morphine Sulfate 4 mg 09/21/24 17:08 09/22/24 02:00 Morphine Sulfate 4 Mg/Ml Syringe IV 4 mg Q4HR PRN Administration Severe Pain (Scale 7 to 10) Naloxone HCl 0.2 mg 09/21/24 17:08 Naloxone 0.4 Mg/Ml 1 Ml Vial IV Q2M PRN Opioid Reversal Ondansetron HCl 4 mg 09/21/24 17:08 Ondansetron 4 Mg/2 Ml Vial IVP Q8HR PRN Nausea And Vomiting Pantoprazole Sodium 40 mg 09/22/24 07:30 Pantoprazole 40 Mg Tablet PO AC-BRKFST [facility] Sertraline HCl 50 mg 09/22/24 09:00 Sertraline 50 Mg Tab PO DAILY [facility] Sildenafil Citrate 20 mg 09/21/24 22:00 09/21/24 21:18 Sildenafil 20 Mg Tab PO 20 mg TID [facility] Administration Tiotropium [place] 2 puff 09/22/24 08:00 09/22/24 07:31 Tiotropium 2.5 Mcg Inhaler INHALATION 2 puff RT-DAILY [facility] Administration 09/22/24 06:24 09/22/24 06:14
--- NOTE | 2024-09-22 11:08 | P.PN ---
Subjective Progress Note Date: 09/22/24 Hospital course: Patient is a 74-year-old female with a past medical history of advanced COPD with chronic hypoxic respiratory failure home oxygen dependent on 4 L, severe pulmonary hypertension, infrarenal abdominal aortic aneurysm reported at approximately 6 cm and awaiting repair, hypertension, hyperlipidemia, and former smoker with > 40 pack per year history. 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 Patient presented to the emergency department with increasing shortness of breath x 3 days. Patient reports on Friday she began to develop worsening shortness of breath, congestion, and productive cough. She denies having any fevers, chills, dizziness, lightheadedness, diaphoresis, chest pain, palpitations, abdominal pain, back pain, nausea, vomiting, or experiencing any numbness/tingling/weakness/swelling in her extremities. She recently underwent 7-day hospitalization for RSV COPD exacerbation from 08/06/2024 through 08/13/2024. She reports going back home at her baseline and feeling at her baseline until just 3 days ago and stated symptoms rapidly worsened. Upon arrival to our facility, patient underwent evaluation in the emergency department. Vital signs upon arrival show blood pressure 102/67, heart rate 113, respiratory rate 24, temp 97.7 F, and SpO2 of 74% on 4 L. Supplemental oxygen increased to 6 L and patient maintaining SpO2 of 90% at this time. EKG completed showing sinus tachycardia with occasional PVC and mild ST depression in inferior leads II, III, and aVF. Chest x-ray completed negative for acute cardiopulmonary process. Labs completed and reviewed. CBC showing leukocytosis with WBC count of 16.4. Coagulation profile normal findings. BMP showing hypokalemia with potassium of 3.3 and mild prerenal azotemia with BUN of 20. Blood glucose with 132. Lactic acid elevated at 2.1. Magnesium was low at 1.5. Liver profile unremarkable. Troponin was elevated at 0.043 with proBNP of 7840. Patient admitted under our services with consultation to and pulmonology and cardiology. Physical exam: Patient seen and fully evaluated at bedside This morning. She was resting comfortably in bed she is currently on 7 L O2 with SpO2 of 89% at time of examination. Patient reports feeling short of breath but states she feels much better than how she felt upon arrival yesterday. She has mild conversational dyspnea after approximately 4-5 words but no accessory muscle usage. Vital signs reviewed and stable. General: Nontoxic, no acute distress and appears stated age. Derm: Skin warm and dry, normal coloration for ethnicity. Head: Atraumatic, normocephalic and symmetric. Eyes: EOM's intact, no lid lag, and anicteric sclera Mouth: no lip lesions, mucus membranes moist Cardiovascular: regular rate and rhythm with normal S1S2, Soft systolic murmur, positive posterior tibial pulses bilaterally, and cap refill < 2 seconds. Lungs: Respirations even, regular, and unlabored on 7 L O2 via nasal cannula. Lungs slightly diminished otherwise good air movement and clear to auscultation with no wheezes, rhonchi, rales, or crackles noted this morning. Abdominal: soft, nontender to palpation, no guarding, no appreciable organomegaly Ext: ROM intact. No gross muscle atrophy, no edema, no contractures Neuro: Speech clear, face symmetrical and CN II-XII grossly intact with no noted focal neuro deficits Psych: Alert and oriented to person, place, time, and situation. Appropriate and pleasant affect. Assessment and Plan of Care: Acute on chronic respiratory failure with hypoxia Advanced COPD with acute exacerbation Moderate to severe pulmonary hypertension Elevated D-dimer, CTA negative for PE -Specimen Processor following, reviewed documentation in chart. -Oxygenation to be administered and titrated as needed to maintain SPO2 equal to or greater than 92% -Telemetry monitoring. -Monitor pulse-oximetry -Duonebs scheduled 4 times daily and as needed for SOB and/or wheezing -Incentive Spirometry -Steroids: 60 mg IVP every 8 hours -Continue Spiriva 2 puffs daily, Ranexa 20 mg 3 times daily and Symbicort 160- 4.5 mcg inhaler 2 puffs twice daily. -Order placed for Cepheid 4 Plex viral panel. Elevated troponins, believed to be secondary to demand ischemia resulting from hypoxia -Cardiology consulted, appreciate recommendations -Telemetry monitoring -Troponins were trended and downtrending at 0.043, 0.040, 0.036, and 0.027. -Aspirin 81 mg daily and atorvastatin 40 mg daily. Infrarenal abdominal aortic aneurysm -Patient denies having any complaints including abdominal pain, back pain, or experiencing any numbness/tingling/weakness in her extremities. She reports that she has to undergo further evaluation for repair and is scheduled to follow-up outpatient with Dr. Fontana to further discuss. Hypomagnesemia -Resolved. Repeat morning magnesium level normal findings at 2.3.. Will continue to monitor with repeat a.m. labs. Hypokalemia -Resolved. Potassium 5.0. Will continue to monitor with repeat a.m. labs and replace abnormal electrolyte values if indicated based upon these findings. Hypertension -Monitor vital signs and continue daily medication regimen with amlodipine 2.5 m g daily. Hyperlipidemia -Continue daily medication regimen with atorvastatin 40 mg daily. Anxiety and depression -Continue Zoloft 50 mg daily. Data and imaging reviewed. Vital signs reviewed. Blood pressure 123/76, heart rate 96, respiratory rate 18, and SpO2 of 87% on 6 L increasing to 88% on 7 L Morning labs reviewed. See showing leukocytosis with WBC count of 11.3. D- dimer was elevated at 1.62. BMP showing hyponatremia with sodium of 134 and elevated BUN of 19 with blood glucose of 152. Magnesium 2.3. Liver profile unremarkable. Troponins were trended and downtrending at 0.043, 0.040, 0.036, and 0.027. CTA chest was completed negative for pulmonary emboli showing moderate emphysematous and diffuse bilateral pulmonary fibrotic changes, mild cardiom egaly with at least moderate right ventricular dilation suspect underlying pulmonary artery hypertension, and at least a 4.7 cm infrarenal AAA. CODE STATUS: Full code DVT prophylaxis: Lovenox Anticipated discharge date: Pending clinical course Anticipated discharge place: Pending clinical course Patient was seen independently by Nurse Practitioner. This document was prepared using [employer] dictation software. Please allow for errors in keyboard specialist while rare they do occur. Tani Shah NP rendered care for this patient independently, reviewed the findings and plan as documented in the note above and agree with plan. I did not physically speak with or examine the patient on this date. Objective - Vital Signs Vital signs: Vital Signs Temp 97.7 F 09/21/24 13:58 Pulse 92 09/22/24 07:45 Resp 18 09/22/24 06:17 BP 123/76 09/22/24 06:17 Pulse Ox 88 L 09/22/24 07:35 FiO2 Intake & Output 09/21/24 09/22/24 09/22/24 18:59 06:59 18:59 Weight 59.421 kg - Labs CBC & Chem 7: 09/22/24 06:24 09/22/24 06:14 Labs: Abnormal Lab Results - Last 24 Hours (Table) 09/21/24 09/21/24 09/21/24 Range/Units 14:49 14:49 14:49 WBC 16.4 H (3.8-10.6) k/uL MCHC (31.0-37.0) g/dL RDW 16.5 H (11.5-15.5) % Neutrophils # 14.5 H (1.3-7.7) k/uL Lymphocytes # (1.0-4.8) k/uL D-Dimer (<0.60) mg/L FEU Sodium (137-145) mmol/L Potassium 3.3 L (3.5-5.1) mmol/L BUN 20 H (7-17) mg/dL Glucose 132 H (74-99) mg/dL Plasma Lactic Acid Yunior 2.1 H* (0.7-2.0) mmol/L Magnesium 1.5 L (1.6-2.3) mg/dL Troponin I (0.000-0.034) ng/mL 09/21/24 09/21/24 09/21/24 Range/Units 14:49 17:26 20:12 WBC (3.8-10.6) k/uL MCHC (31.0-37.0) g/dL RDW (11.5-15.5) % Neutrophils # (1.3-7.7) k/uL Lymphocytes # (1.0-4.8) k/uL D-Dimer (<0.60) mg/L FEU Sodium (137-145) mmol/L Potassium (3.5-5.1) mmol/L BUN (7-17) mg/dL Glucose (74-99) mg/dL Plasma Lactic Acid Yunior (0.7-2.0) mmol/L Magnesium (1.6-2.3) mg/dL Troponin I 0.043 H* 0.040 H* 0.036 H* (0.000-0.034) ng/mL 09/22/24 09/22/24 09/22/24 Range/Units 00:18 06:14 06:14 WBC 10.8 H (3.8-10.6) k/uL MCHC 30.7 L (31.0-37.0) g/dL RDW 16.0 H (11.5-15.5) % Neutrophils # (1.3-7.7) k/uL Lymphocytes # (1.0-4.8) k/uL D-Dimer 1.62 H (<0.60) mg/L FEU Sodium 134 L (137-145) mmol/L Potassium (3.5-5.1) mmol/L BUN 19 H (7-17) mg/dL Glucose 152 H (74-99) mg/dL Plasma Lactic Acid Yunior (0.7-2.0) mmol/L Magnesium (1.6-2.3) mg/dL Troponin I (0.000-0.034) ng/mL 09/22/24 Range/Units 06:24 WBC 11.3 H (3.8-10.6) k/uL MCHC 30.0 L (31.0-37.0) g/dL RDW 16.0 H (11.5-15.5) % Neutrophils # 10.2 H (1.3-7.7) k/uL Lymphocytes # 0.6 L (1.0-4.8) k/uL D-Dimer (<0.60) mg/L FEU Sodium (137-145) mmol/L Potassium (3.5-5.1) mmol/L BUN (7-17) mg/dL Glucose (74-99) mg/dL Plasma Lactic Acid Yunior (0.7-2.0) mmol/L Magnesium (1.6-2.3) mg/dL Troponin I (0.000-0.034) ng/mL
[2024-09-22] MEDS: methylPREDNISolone SOD SUCCI 125 MG/2 ML VIAL IV SCH (12:20)
[2024-09-22] MEDS: HEPARIN SODIUM 1,000 UN/ML (10ML VL) IV ONE (18:54)
[2024-09-22] MEDS: HEPARIN SOD,PORK IN 0.45% NACL 25,000 UNIT in 0.45% NACL 1 250ML.BAG IV SCH (18:55)
[2024-09-22 19:13] LABS: Anisocytosis Slight; Basophils % (A) 0 %; Eosinophils % (A) 0 %; HCT 40.7 % (34.0-46.0); HGB 12.4 gm/dL (11.4-16.0); Hypochromasia Slight; Lymphocytes # (A) 0.7 k/uL (1.0-4.8); Lymphocytes % (A) 4 %; MCH 28.9 pg (25.0-35.0); MCHC 30.4 g/dL (31.0-37.0); MCV 95.1 fL (80.0-100.0); Monocytes # (A) 0.4 k/uL (0-1.0); Monocytes % (A) 2 %; Neutrophils # (A) 17.7 k/uL (1.3-7.7); Neutrophils % (A) 94 %; Platelet Count 273 k/uL (150-450); RBC 4.28 m/uL (3.80-5.40); RDW 16.7 % (11.5-15.5); WBC 18.9 k/uL (3.8-10.6)
[2024-09-22 20:45] LABS: Glucose,Whole Blood 225 mg/dL (70-110)
[2024-09-22] MEDS ORDERED: DEXTROSE 50% SYRINGE 50 ML IVP PRN ×2 (21:08)
[2024-09-22] MEDS: ACETAMINOPHEN TAB 325 MG TAB PO PRN (22:04)
[2024-09-23 00:58] LABS: Anisocytosis Slight; Basophils % (A) 0 %; Eosinophils % (A) 0 %; HCT 41.2 % (34.0-46.0); HGB 12.4 gm/dL (11.4-16.0); Hypochromasia Marked; Lymphocytes # (A) 0.7 k/uL (1.0-4.8); Lymphocytes % (A) 4 %; MCH 29.5 pg (25.0-35.0); MCHC 30.1 g/dL (31.0-37.0); Macrocytosis Slight; Mean Platelet Volume 8.4; Monocytes # (A) 0.6 k/uL (0-1.0); Monocytes % (A) 3 %; Neutrophils % (A) 92 %; Platelet Count 245 k/uL (150-450); RBC 4.21 m/uL (3.80-5.40); RDW 16.1 % (11.5-15.5); WBC 19.6 k/uL (3.8-10.6)
[2024-09-23 01:03] LABS: Partial Thromboplastin Time 37.1 sec (22.0-30.0); Prothrombin Time 10.8 sec (10.0-12.5)
[2024-09-23] MEDS: HEPARIN SODIUM 1,000 UN/ML (10ML VL) IV PRN (02:27)
[2024-09-23] MEDS: ATORVASTATIN 80 MG TAB PO ONE (06:31)
[2024-09-23] MEDS: ASPIRIN 325 MG TAB PO ONE (06:31)
[2024-09-23] MEDS: INSULIN LISPRO (HumaLOG) 100 UNIT/ML 10 mL VL SQ SCH (06:39)
[2024-09-23 06:41] LABS: Glucose,Whole Blood 161 mg/dL (70-110)
[2024-09-23] MEDS ORDERED: HEPARIN SODIUM,PORCINE 10,000 UNIT in SODIUM CHLORIDE 0.9% 1,000 ML IRRIGATION PRN (07:00)
[2024-09-23] MEDS ORDERED: HEPARIN SODIUM,PORCINE (1 ML) 2,500 UNIT in SODIUM CHLORIDE 0.9% 250 ML IRRIGATION PRN (07:00)
[2024-09-23] MEDS: IPRATROPIUM-ALBUTEROL 3 ML NEB INHALATION SCH (08:15)
[2024-09-23 11:16] LABS: Glucose,Whole Blood 154 mg/dL (70-110)
--- NOTE | 2024-09-23 13:17 | P.PN ---
Subjective Progress Note Date: 09/23/24 Hospital Course: 74-year-old female with a past medical history of advanced COPD with chronic h ypoxic respiratory failure home oxygen dependent on 4 L, severe pulmonary hypertension, infrarenal abdominal aortic aneurysm reported at approximately 6 cm and awaiting repair, hypertension, hyperlipidemia, and former smoker with > 40 pack per year history. Patient reports that she follows with Dr. 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 Patient presented to the emergency department with increasing shortness of breath x 3 days. Patient reports on Friday she began to develop worsening shortness of breath, congestion, and productive cough. She denies having any fevers, chills, dizziness, lightheadedness, diaphoresis, chest pain, palpitations, abdominal pain, back pain, nausea, vomiting, or experiencing any numbness/tingling/weakness/swelling in her extremities. She recently underwent 7-day hospitalization for RSV COPD exacerbation from 08/06/2024 through 08/13/2024. She reports going back home at her baseline and feeling at her baseline until just 3 days ago and stated symptoms rapidly worsened. Upon arrival to our facility, patient underwent evaluation in the emergency department. Vital signs upon arrival show blood pressure 102/67, heart rate 113, respiratory rate 24, temp 97.7 F, and SpO2 of 74% on 4 L. Supplemental oxygen increased to 6 L and patient maintaining SpO2 of 90% at this time. EKG completed showing sinus tachycardia with occasional PVC and mild ST depression in inferior leads II, III, and aVF. Chest x-ray completed negative for acute cardiopulmonary process. Labs completed and reviewed. CBC showing leukocytosis with WBC count of 16.4. Coagulation profile normal findings. BMP showing hypokalemia with potassium of 3.3 and mild prerenal azotemia with BUN of 20. Blood glucose with 132. Lactic acid elevated at 2.1. Magnesium was low at 1.5. Liver profile unremarkable. Troponin was elevated at 0.043 with proBNP of 7840. Patient admitted under our services with consultation to and pulmonology and cardiology. Being treated for COPD with exacerbation. On steroids, bronchodilators. Also on heparin drip, pending cardiac cath. Subjective: Patient seen and examined at bedside. No acute events overnight. Uses 4 L at home. Currently on 6 L Pertinent positives and negatives as discussed above, a complete review of systems was performed and all other systems are negative. Vitals Signs Reviewed. General: Nontoxic, no distress, appears at stated age Derm: Warm, dry Head: Atraumatic, normocephalic, symmetric Eyes: EOMI, no lid lag, anicteric sclera Mouth: No lip lesion, mucus membranes moist Cardiovascular: S1S2 reg, no murmur Lungs: CTA bilateral, no rhonchi, no rales, no accessory muscle use, supplemental oxygen Abdominal: Soft, nontender to palpation, no guarding, no appreciable organomegaly Ext: No gross muscle atrophy, no edema, no contractures Neuro: CN II-XI grossly intact, no focal neuro deficits Psych: Alert, oriented, appropriate affect Data Reviewed Today: Pertinent Labs: WBC 19.6, hemoglobin 12.4, platelet 245, APTT 45, blood sugars range between 1 54-1 61 Imaging: No new imaging Assessment and Plan: Patient is severely ill, needs close monitoring. Prognosis guarded. Acute on chronic respiratory failure with hypoxia Advanced COPD with acute exacerbation Moderate to severe pulmonary hypertension Elevated D-dimer, CTA negative for PE -Warrant Clerk following, recommendations as follow, also started on azithromycin 500 daily for 3 days -Wean oxygen -Duonebs scheduled 4 times daily and as needed for SOB and/or wheezing -Steroids: Solu-Medrol 60 mg IVP every 8 hours -Continue Spiriva 2 puffs daily, sildenafil 20 mg 3 times daily and Symbicort 160-4.5 mcg inhaler 2 puffs twice daily. NSTEMI likely type II -Cardiology following, left and right heart cath today -Telemetry monitoring -Continue heparin drip, monitor APTT -Aspirin 81 mg daily and atorvastatin 40 mg daily. Infrarenal abdominal aortic aneurysm -Patient denies having any complaints including abdominal pain, back pain, or experiencing any numbness/tingling/weakness in her extremities. She reports that she has to undergo further evaluation for repair and is scheduled to follow-up outpatient with Dr. Fontana to further discuss. Hypomagnesemia, resolved Hypokalemia COVID result Hypertension -Monitor vital signs and continue daily medication regimen with amlodipine 2.5 mg daily. Hyperlipidemia -Continue daily medication regimen with atorvastatin 40 mg daily. Anxiety and depression -Continue Zoloft 50 mg daily. DVT ppx: Heparin drip Code status: Full code Anticipated discharge place: Pending clinical course Anticipated discharge time: Pending clinical course Objective - Vital Signs Vital signs: Vital Signs Temp 98.2 F 09/23/24 11:43 Pulse 68 09/23/24 12:00 Resp 18 09/23/24 12:00 BP 120/74 09/23/24 11:43 Pulse Ox 90 L 09/23/24 11:43 FiO2 Intake & Output 09/22/24 09/23/24 09/23/24 18:59 06:59 18:59 Intake Total 293.483 Balance 293.483 Weight 59.421 kg Intake: Intake, IV Titration 53.483 Amount Heparin Sod,Pork in 0.45% 53.483 NaCl 25,000 unit In 0.45 % NaCl 1 250ml.bag @ 12 UNITS/KG/HR 7.131 mls/hr IV .Q24H [facility] Rx#: [id number] Oral 240 Other: Voiding Method Bedside Commode # Voids 1 - Labs CBC & Chem 7: 09/23/24 00:47 09/22/24 06:14 Labs: Abnormal Lab Results - Last 24 Hours (Table) 09/22/24 09/22/24 09/23/24 Range/Units 18:49 20:43 00:47 WBC 18.9 H (3.8-10.6) k/uL MCHC 30.4 L (31.0-37.0) g/dL RDW 16.7 H (11.5-15.5) % Neutrophils # 17.7 H (1.3-7.7) k/uL Lymphocytes # 0.7 L (1.0-4.8) k/uL APTT 37.1 H (22.0-30.0) sec POC Glucose (mg/dL) 225 H (70-110) mg/dL 09/23/24 09/23/24 09/23/24 Range/Units 00:47 06:39 07:02 WBC 19.6 H (3.8-10.6) k/uL MCHC 30.1 L (31.0-37.0) g/dL RDW 16.1 H (11.5-15.5) % Neutrophils # 18.0 H (1.3-7.7) k/uL Lymphocytes # 0.7 L (1.0-4.8) k/uL APTT 45.0 H (22.0-30.0) sec POC Glucose (mg/dL) 161 H (70-110) mg/dL 09/23/24 Range/Units 11:14 WBC (3.8-10.6) k/uL MCHC (31.0-37.0) g/dL RDW (11.5-15.5) % Neutrophils # (1.3-7.7) k/uL Lymphocytes # (1.0-4.8) k/uL APTT (22.0-30.0) sec POC Glucose (mg/dL) 154 H (70-110) mg/dL
[2024-09-23] MEDS: HEPARIN SODIUM,PORCINE (1 ML) 2,500 UNIT in SODIUM CHLORIDE 0.9% 250 ML IRRIGATION ONE (13:40)
[2024-09-23] MEDS: SODIUM CHLORIDE 0.9% 1,000 ML IV ONE (13:40)
[2024-09-23] MEDS: HEPARIN SODIUM,PORCINE 10,000 UNIT in SODIUM CHLORIDE 0.9% 1,000 ML IRRIGATION ONE (13:41)
[2024-09-23] MEDS: MIDAZOLAM 2 MG/2 ML VIAL IVP ONE (13:56)
[2024-09-23] MEDS: fentaNYL (PF) 50 MCG/ML 2 ML AMP IVP ONE (13:58)
[2024-09-23] MEDS: LIDOCAINE 1% INJ 10MG/ML (20 ML MDV) SQ ONE (14:00)
[2024-09-23] MEDS: VERAPAMIL SYRINGE (5 MG/10 ML) INTRAARTER ONE (14:06)
[2024-09-23 14:11] VITALS: BMI 21.8
[2024-09-23] MEDS: HEPARIN SODIUM 1,000 UN/ML (10ML VL) IV ONE (14:18)
[2024-09-23] MEDS: IOPAMIDOL-370 100ML BTL INJ ONE (14:22)
[2024-09-23 14:34] LABS: O2 Sat Blood Gas 66.2 %
--- NOTE | 2024-09-23 14:34 | P.PN ---
Subjective Progress Note Date: 09/23/24 Reason for Consult (text): Elevated troponin likely due to hypoxia History of present illness: This is a 74-year-old female patient previously seen Dr. Burgess with plan to move over to Dr. Fontana's practice and has an appointment scheduled at the [place] office. She has a past medical history of AAA approximately 6 cm awaiting repair, pulmonary hypertension, carotid stenosis, COPD, chronic hypoxic respiratory failure on home oxygen at 4 L nasal cannula. We have been asked to evaluate the patient for elevated troponin likely due to hypoxia. Patient presented to the hospital with a pulse ox of 74%. Patient states that for the past 3 days she has had increasing shortness of breath especially with minimal activity her pulse ox was dropping down to the 60s and 70s. She also feels dizzy at the time and needs to stop and put her head down and rest. She denies any fever or chills. She states her blood pressure at home usually runs under 100 systolic. Currently blood pressure 123/76, heart rate 93, pulse ox 88% on 7 L nasal cannula. Patient is seen today in the emergency center waiting for bed on the cardiac stepdown unit. Patient had an admission in July and at that time she was started on Revatio 20 mg 3 times daily. Patient's not sure she has had any significant improvement of her breathing status with this. Dr. Fontana discussed with patient the recommendations for cardiac catheterization and she is agreeable to move forward with this. It will be scheduled for tomorrow. -EKG: Sinus tachycardia 108 bpm with incomplete right bundle branch block -Chest x-ray: Chronic changes. -CTA of the chest no PE. Moderate emphysema and diffuse pulmonary fibrosis. Mild cardiomegaly, RV dilatation, 4.7 cm infrarenal AAA. -Laboratory studies: WBC 11.3, hemoglobin 13, D-dimer 1.62, sodium 134, potassium potassium 5, CO2 24, BUN 19 and creatinine 0.74. Troponin 0.043, 0.040, 0.036 and 0.027. proBNP 7840. Cepheid viral panel negative. -Home cardiac medications: Amlodipine 2.5 mg daily, aspirin 81 mg daily, atorvastatin 40 mg daily, Lasix 20 mg daily, Revatio 20 mg 3 times daily. -Echocardiogram performed in July revealed EF of 55%, RVSP 67, mild MR, moderate TR. 09/23 Patient seen and examined. Patient is scheduled for left and right heart catheterization with Dr. Fontana today. Blood pressure 120/74, heart rate 68, pulse ox 90% on 6 L high flow nasal cannula. Repeat blood work reveals WBC 19.6, hemoglobin 12.4. Physical examination: Gen: This is a 74-year-old female and appears to be comfortable at rest. VS: reviewed HEENT: Head is atraumatic, normocephalic. Pupils equal, round. Sclerae is anicteric. NECK: Supple. No JVD. LUNGS: Diminished breath sounds bilaterally. No intercostal retractions. HEART: Regular rate and rhythm. No murmur. ABDOMEN: Soft No tenderness. EXTREMITIES: No pedal edema. No calf tenderness. NEUROLOGICAL: Patient is awake, alert and oriented x3. Assessment: Elevated troponin, most likely due type II NSTEMI from hypoxia Acute on chronic hypoxic respiratory failure COPD exacerbation Pulmonary hypertension Carotid stenosis AAA Plan: Continue continue patient's home cardiac medications Continue heparin drip Schedule patient for left and right heart catheterization with Dr. Fontana N.p.o. after midnight No need to repeat echocardiogram Further recommendations to follow based upon clinical course Nurse practitioner note has been reviewed, I agree with documented findings and plan of care. Patient was seen and examined. Objective - Vital Signs Vital signs: Vital Signs Temp 98.2 F 09/23/24 11:43 Pulse 68 09/23/24 12:00 Resp 18 09/23/24 12:00 BP 120/74 09/23/24 11:43 Pulse Ox 90 L 09/23/24 11:43 FiO2 Intake & Output 09/22/24 09/23/24 09/23/24 18:59 06:59 18:59 Intake Total 293.483 316.953 Balance 293.483 316.953 Weight 59.421 kg 59.421 kg Intake: IV 225.86 Heparin Sod,Pork in 0.45% 49.86 NaCl 25,000 unit In 0.45 % NaCl 1 250ml.bag @ 12 UNITS/KG/HR 7.131 mls/hr IV .Q24H [facility] Rx#: [id number] Intake, IV Titration 53.483 91.093 Amount Heparin Sod,Pork in 0.45% 53.483 91.093 NaCl 25,000 unit In 0.45 % NaCl 1 250ml.bag @ 12 UNITS/KG/HR 7.131 mls/hr IV .Q24H [facility] Rx#: [id number] Oral 240 Other: Voiding Method Bedside Commode # Voids 1 - Labs CBC & Chem 7: 09/23/24 00:47 09/22/24 06:14 Labs: Abnormal Lab Results - Last 24 Hours (Table) 09/22/24 09/22/24 09/23/24 Range/Units 18:49 20:43 00:47 WBC 18.9 H (3.8-10.6) k/uL MCHC 30.4 L (31.0-37.0) g/dL RDW 16.7 H (11.5-15.5) % Neutrophils # 17.7 H (1.3-7.7) k/uL Lymphocytes # 0.7 L (1.0-4.8) k/uL APTT 37.1 H (22.0-30.0) sec POC Glucose (mg/dL) 225 H (70-110) mg/dL 09/23/24 09/23/24 09/23/24 Range/Units 00:47 06:39 07:02 WBC 19.6 H (3.8-10.6) k/uL MCHC 30.1 L (31.0-37.0) g/dL RDW 16.1 H (11.5-15.5) % Neutrophils # 18.0 H (1.3-7.7) k/uL Lymphocytes # 0.7 L (1.0-4.8) k/uL APTT 45.0 H (22.0-30.0) sec POC Glucose (mg/dL) 161 H (70-110) mg/dL 09/23/24 Range/Units 11:14 WBC (3.8-10.6) k/uL MCHC (31.0-37.0) g/dL RDW (11.5-15.5) % Neutrophils # (1.3-7.7) k/uL Lymphocytes # (1.0-4.8) k/uL APTT (22.0-30.0) sec POC Glucose (mg/dL) 154 H (70-110) mg/dL
[2024-09-23 14:35] LABS: O2 Sat Blood Gas 68.3 %
--- NOTE | 2024-09-23 14:38 | P.PN ---
Subjective Progress Note Date: 09/23/24 Patient is a 74-year-old female with past medical history significant for COPD. Normally oxygen dependent on, 4 L/min nasal cannula 17/02. Also, takes a daily prednisone 10 mg tablet. Does follow in the pulmonary office with Dr. Colunga. She is maintained on Trelegy Ellipta inhaler daily. Her primary care provider is Dr. Chopra. She also has past medical history significant for pulmonary hypertension, systemic hypertension, AAA, and peripheral vascular disease. Of note, patient recently hospitalized in July, for RSV tracheobronchitis and COPD exacerbation. Returns to the emergency department yesterday afternoon complaining of acute on chronic dyspnea. States that her oxygen saturations are continuously less than 85% while resting and dropping down to the 60s during activity. She has been lightheaded with activity no significant change in her coughing or sputum purulence. No fevers or chills. Does endorse runny nose and sore throat. Occasional nosebleeds, that she attributes to her nasal cannula. Denies any chest pain, heart palpitations, syncopal events, lower extremity edema. She was tachycardic, tachypneic, and hypoxic on arrival. Placed on 6 L/min nasal cannula. Workup in the ED including a chest x-ray which does not show any acute cardiopulmonary process, chronic parenchymal changes noted bilaterally. No focal airspace opacities, pleural effusions, pneumothoraces. CBC: WBC count 16.4, hemoglobin 13.8, platelets 242. CMP: Sodium 140, potassium 3.3, chloride 101, serum bicarb 27, BUN 20, creatinine 0.87, glucose 132. Lactic 1.2. D-dimer 1.62. Serial troponins elevated 0.04, 0.04, 0.036, and 0.027. NT proBNP 7840. Recent echocardiogram done during a hospitalization in July, demonstrating preserved left ventricular ejection fraction of 55%, severe RV dilation/dysfunction, pulmonary hypertension with an RVSP of 67, mild mitral regurgitation and moderate tricuspid regurgitation. Viral screen negative for influenza A/B, RSV, COVID. Patient currently being evaluated in the ED, endorses above-mentioned symptoms. She is on 6 L/min nasal cannula. SpO2 reading 88%. Not particularly distressed. Current vital signs are stable. The patient is seen today September 23, 2024 in follow-up on the selective care unit. She is currently resting comfortably in bed. Awake and alert in no acute distress. Maintaining O2 saturations in the 90s on 4 L/min per nasal cannula. She remains on a heparin drip. The plan is for right and left heart catheterization today. White count 19.6. Hemoglobin 12.4. Platelets 245. Glucose 161. She is continued on DuoNeb inhalations, Solu-Medrol. Remains on her home Trelegy. Remains on oral diuretics. Normal saline at 75 mL/h. Objective - Vital Signs Vital signs: Vital Signs Temp 98.2 F 09/23/24 11:43 Pulse 68 09/23/24 12:00 Resp 18 09/23/24 12:00 BP 120/74 09/23/24 11:43 Pulse Ox 90 L 09/23/24 11:43 FiO2 Intake & Output 09/22/24 09/23/24 09/23/24 18:59 06:59 18:59 Intake Total 293.483 316.953 Balance 293.483 316.953 Weight 59.421 kg 59.421 kg Intake: IV 225.86 Heparin Sod,Pork in 0.45% 49.86 NaCl 25,000 unit In 0.45 % NaCl 1 250ml.bag @ 12 UNITS/KG/HR 7.131 mls/hr IV .Q24H [facility] Rx#: [id number] Intake, IV Titration 53.483 91.093 Amount Heparin Sod,Pork in 0.45% 53.483 91.093 NaCl 25,000 unit In 0.45 % NaCl 1 250ml.bag @ 12 UNITS/KG/HR 7.131 mls/hr IV .Q24H [facility] Rx#: [id number] Oral 240 Other: Voiding Method Bedside Commode # Voids 1 - Exam GENERAL EXAM: Alert, 74-year-old female, resting in bed, on 4 L/min nasal cannula, not particularly distressed. HEAD: Normocephalic and atraumatic EYES: Normal reaction of pupils, equal size. Nonicteric sclera. No nystagmus. NOSE: Clear with pink turbinates. THROAT: No erythema or exudates. NECK: No masses, no JVD. No carotid bruit with strong palpable pulse bilaterally CHEST: No chest wall deformity. LUNGS: Equal air entry with no crackles, wheeze, rhonchi or dullness. CVS: S1 and S2 normal with no audible murmur, regular rhythm. No extra heart sounds ABDOMEN: No hepatosplenomegaly, active bowel sounds, no guarding or rigidity. SPINE: No scoliosis or deformity SKIN: No rashes CENTRAL NERVOUS SYSTEM: Alert and oriented, cranial nerves II through XII intact, tone is normal in all 4 extremities. EXTREMITIES: There is no peripheral edema, clubbing, or cyanosis. Peripheral pulses are intact. - Labs CBC & Chem 7: 09/23/24 00:47 09/22/24 06:14 Labs: Abnormal Lab Results - Last 24 Hours (Table) 09/22/24 09/22/24 09/23/24 Range/Units 18:49 20:43 00:47 WBC 18.9 H (3.8-10.6) k/uL MCHC 30.4 L (31.0-37.0) g/dL RDW 16.7 H (11.5-15.5) % Neutrophils # 17.7 H (1.3-7.7) k/uL Lymphocytes # 0.7 L (1.0-4.8) k/uL APTT 37.1 H (22.0-30.0) sec POC Glucose (mg/dL) 225 H (70-110) mg/dL 09/23/24 09/23/24 09/23/24 Range/Units 00:47 06:39 07:02 WBC 19.6 H (3.8-10.6) k/uL MCHC 30.1 L (31.0-37.0) g/dL RDW 16.1 H (11.5-15.5) % Neutrophils # 18.0 H (1.3-7.7) k/uL Lymphocytes # 0.7 L (1.0-4.8) k/uL APTT 45.0 H (22.0-30.0) sec POC Glucose (mg/dL) 161 H (70-110) mg/dL 09/23/24 Range/Units 11:14 WBC (3.8-10.6) k/uL MCHC (31.0-37.0) g/dL RDW (11.5-15.5) % Neutrophils # (1.3-7.7) k/uL Lymphocytes # (1.0-4.8) k/uL APTT (22.0-30.0) sec POC Glucose (mg/dL) 154 H (70-110) mg/dL Assessment and Plan Assessment: Acute on chronic hypoxemic respiratory failure, currently on 4 L/min nasal cannula, chest x-ray which does not show any acute cardiopulmonary process, chronic parenchymal changes noted bilaterally. No focal airspace opacities, pleural effusions, pneumothoraces. CT angiogram ruled out acute pulmonary embolism. There is moderate and for somatic and diffuse bilateral pulmonary fibrotic changes. No acute pulmonary process Acute leukocytosis Acute on chronic dyspnea Acute COPD exacerbation Oxygen and steroid-dependent chronic obstructive pulmonary disease Chronic oxygen dependence, normally maintained on 4 L/min nasal cannula Elevated troponins, downtrending, plan is for a heart catheterization today Pulmonary hypertension, suspect group 3 Recent hospitalization for RSV tracheobronchitis Infrarenal abdominal aortic aneurysm, 4.7 cm follows with vascular surgery outpatient Systemic hypertension Peripheral vascular disease and carotid artery stenosis Former tobacco smoker Anxiety/depression Plan: The patient was seen and evaluated Imaging, labs and medications reviewed Currently stable on 4 L nasal cannula Continue bronchodilators, steroids Continue her home Trelegy Continue azithromycin Continue oral diuretics Plan is for cardiac catheterization today We will continue to follow I have personally seen and examined the patient, performed the documentation and the assessment and plan as written. Number of minutes spent on the visit: 10 Dictation was produced using [employer] dictation software. Please excuse any grammatical, word or spelling errors.
[2024-09-23 16:11] LABS: Glucose,Whole Blood 232 mg/dL (70-110)
[2024-09-23 20:21] LABS: Glucose,Whole Blood 210 mg/dL (70-110)
[2024-09-24 06:16] LABS: Glucose,Whole Blood 163 mg/dL (70-110)
[2024-09-24 08:38] LABS: Anisocytosis Slight; Basophils % (A) 0 %; Eosinophils % (A) 0 %; HCT 41.1 % (34.0-46.0); HGB 12.7 gm/dL (11.4-16.0); Hypochromasia Moderate; Lymphocytes # (A) 0.5 k/uL (1.0-4.8); Lymphocytes % (A) 3 %; MCH 29.9 pg (25.0-35.0); MCHC 30.8 g/dL (31.0-37.0); MCV 96.9 fL (80.0-100.0); Monocytes # (A) 0.5 k/uL (0-1.0); Monocytes % (A) 3 %; Neutrophils # (A) 15.6 k/uL (1.3-7.7); Neutrophils % (A) 93 %; Platelet Count 231 k/uL (150-450); RBC 4.24 m/uL (3.80-5.40); RDW 16.2 % (11.5-15.5); WBC 16.7 k/uL (3.8-10.6)
[2024-09-24 09:11] LABS: ALT 20 U/L (4-34); AST 30 U/L (14-36); African American GFR (CKD) 89 (>60 ml/min/1.73 sqM); Albumin 3.7 g/dL (3.5-5.0); Alkaline Phosphatase 60 U/L (38-126); Anion Gap 11 mmol/L; Blood Urea Nitrogen 29 mg/dL (7-17); Carbon Dioxide 21 mmol/L (22-30); Chloride 107 mmol/L (98-107); Glucose 125 mg/dL (74-99); Non-African American GFR(CKD) 77 (>60 ml/min/1.73 sqM); Potassium 4.2 mmol/L (3.5-5.1); Sodium 139 mmol/L (137-145); Total Bilirubin 0.7 mg/dL (0.2-1.3); Total Protein 6.1 g/dL (6.3-8.2)
[2024-09-24 11:45] LABS: Glucose,Whole Blood 176 mg/dL (70-110)
[2024-09-24] MEDS: METOPROLOL SUCCINATE (ER) 25 MG TAB.ER.24H PO SCH (14:04)
--- NOTE | 2024-09-24 14:15 | P.PN ---
Subjective Progress Note Date: 09/24/24 Hospital Course: 74-year-old female with a past medical history of advanced COPD with chronic h ypoxic respiratory failure home oxygen dependent on 4 L, severe pulmonary hypertension, infrarenal abdominal aortic aneurysm reported at approximately 6 cm and awaiting repair, hypertension, hyperlipidemia, and former smoker with > 40 pack per year history. Patient reports that she follows with Dr. 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 Patient presented to the emergency department with increasing shortness of breath x 3 days. Patient reports on Friday she began to develop worsening shortness of breath, congestion, and productive cough. She denies having any fevers, chills, dizziness, lightheadedness, diaphoresis, chest pain, palpitations, abdominal pain, back pain, nausea, vomiting, or experiencing any numbness/tingling/weakness/swelling in her extremities. She recently underwent 7-day hospitalization for RSV COPD exacerbation from 08/06/2024 through 08/13/2024. She reports going back home at her baseline and feeling at her baseline until just 3 days ago and stated symptoms rapidly worsened. Upon arrival to our facility, patient underwent evaluation in the emergency department. Vital signs upon arrival show blood pressure 102/67, heart rate 113, respiratory rate 24, temp 97.7 F, and SpO2 of 74% on 4 L. Supplemental oxygen increased to 6 L and patient maintaining SpO2 of 90% at this time. EKG completed showing sinus tachycardia with occasional PVC and mild ST depression in inferior leads II, III, and aVF. Chest x-ray completed negative for acute cardiopulmonary process. Labs completed and reviewed. CBC showing leukocytosis with WBC count of 16.4. Coagulation profile normal findings. BMP showing hypokalemia with potassium of 3.3 and mild prerenal azotemia with BUN of 20. Blood glucose with 132. Lactic acid elevated at 2.1. Magnesium was low at 1.5. Liver profile unremarkable. Troponin was elevated at 0.043 with proBNP of 7840. Patient admitted under our services with consultation to and pulmonology and cardiology. Being treated for COPD with exacerbation. On steroids, bronchodilators was on heparin drip, underwent cardiac cath. Report pending. Subjective: Patient seen and examined at bedside. No acute events overnight. Uses 4 L at home, currently on baseline oxygen requirement Pertinent positives and negatives as discussed above, a complete review of systems was performed and all other systems are negative. Vitals Signs Reviewed. General: Nontoxic, no distress, appears at stated age Derm: Warm, dry Head: Atraumatic, normocephalic, symmetric Eyes: EOMI, no lid lag, anicteric sclera Mouth: No lip lesion, mucus membranes moist Cardiovascular: S1S2 reg, no murmur Lungs: CTA bilateral, no rhonchi, no rales, no accessory muscle use, supplemental oxygen Abdominal: Soft, nontender to palpation, no guarding, no appreciable organomegaly Ext: No gross muscle atrophy, no edema, no contractures Neuro: CN II-XI grossly intact, no focal neuro deficits Psych: Alert, oriented, appropriate affect Data Reviewed Today: Pertinent Labs: WBC 16.7, platelet 231, hemoglobin 12.7, creatinine 0.77, blood sugars range between 1 25-1 76 Imaging: No new imaging Assessment and Plan: Patient is severely ill, needs close monitoring. Prognosis guarded. Acute on chronic respiratory failure with hypoxia Advanced COPD with acute exacerbation Moderate to severe pulmonary hypertension Elevated D-dimer, CTA negative for PE -Vocational Rehabilitation Specialist following, recommendations as follow, also started on az ithromycin 500 daily for 3 days -At home oxygen requirements -Duonebs scheduled 4 times daily and as needed for SOB and/or wheezing -Steroids: Changed to oral prednisone 40 daily -Continue Spiriva 2 puffs daily, sildenafil 20 mg 3 times daily and Symbicort 160-4.5 mcg inhaler 2 puffs twice daily. NSTEMI likely type II -Cardiology following, left and right heart cath done yesterday, report pending -Also started on metoprolol 12.5 daily -Aspirin 81 mg daily and atorvastatin 40 mg daily. Infrarenal abdominal aortic aneurysm -Patient denies having any complaints including abdominal pain, back pain, or experiencing any numbness/tingling/weakness in her extremities. She reports that she has to undergo further evaluation for repair and is scheduled to follow-up outpatient with Dr. Fontana to further discuss. Hypomagnesemia, resolved Hypokalemia, resolved Hypertension -Monitor vital signs and continue daily medication regimen with amlodipine 2.5 mg daily. Hyperlipidemia -Continue daily medication regimen with atorvastatin 40 mg daily. Anxiety and depression -Continue Zoloft 50 mg daily. DVT ppx: Subcu heparin Code status: Full code Anticipated discharge place: Pending clinical course Anticipated discharge time: Pending clinical course Objective - Vital Signs Vital signs: Vital Signs Temp 98.0 F 09/24/24 11:50 Pulse 108 H 09/24/24 12:02 Resp 20 09/24/24 12:02 BP 119/76 09/24/24 11:50 Pulse Ox 90 L 09/24/24 11:50 FiO2 Intake & Output 09/23/24 09/24/24 09/24/24 18:59 06:59 18:59 Intake Total 496.953 480 80 Output Total 200 Balance 496.953 480 -120 Weight 59.421 kg 65 kg Intake: IV 225.86 20 Heparin Sod,Pork in 0.45% 49.86 NaCl 25,000 unit In 0.45 % NaCl 1 250ml.bag @ 12 UNITS/KG/HR 7.131 mls/hr IV .Q24H ILA Rx#: [id number] Invasive Line 1 20 Intake, IV Titration 91.093 Amount Heparin Sod,Pork in 0.45% 91.093 NaCl 25,000 unit In 0.45 % NaCl 1 250ml.bag @ 12 UNITS/KG/HR 7.131 mls/hr IV .Q24H ILA Rx#: [id number] Oral 180 480 60 Output: Urine 200 Other: Voiding Method Bedside Commode Bedside Commode # Voids 1 1 # Bowel Movements 1 - Labs CBC & Chem 7: 09/24/24 07:38 09/24/24 07:38 Labs: Abnormal Lab Results - Last 24 Hours (Table) 09/23/24 09/23/24 09/24/24 Range/Units 16:10 20:10 06:01 WBC (3.8-10.6) k/uL MCHC (31.0-37.0) g/dL RDW (11.5-15.5) % Neutrophils # (1.3-7.7) k/uL Lymphocytes # (1.0-4.8) k/uL Carbon Dioxide (22-30) mmol/L BUN (7-17) mg/dL Glucose (74-99) mg/dL POC Glucose (mg/dL) 232 H 210 H 163 H (70-110) mg/dL Total Protein (6.3-8.2) g/dL 09/24/24 09/24/24 09/24/24 Range/Units 07:38 07:38 11:44 WBC 16.7 H (3.8-10.6) k/uL MCHC 30.8 L (31.0-37.0) g/dL RDW 16.2 H (11.5-15.5) % Neutrophils # 15.6 H (1.3-7.7) k/uL Lymphocytes # 0.5 L (1.0-4.8) k/uL Carbon Dioxide 21 L (22-30) mmol/L BUN 29 H (7-17) mg/dL Glucose 125 H (74-99) mg/dL POC Glucose (mg/dL) 176 H (70-110) mg/dL Total Protein 6.1 L (6.3-8.2) g/dL
--- NOTE | 2024-09-24 14:42 | P.PN ---
Subjective Progress Note Date: 09/24/24 Reason for Consult (text): Elevated troponin likely due to hypoxia History of present illness: This is a 74-year-old female patient previously seen Dr. Burgess with plan to move over to Dr. Fontana's practice and has an appointment scheduled at the [place] office. She has a past medical history of AAA approximately 6 cm awaiting repair, pulmonary hypertension, carotid stenosis, COPD, chronic hypoxic respiratory failure on home oxygen at 4 L nasal cannula. We have been asked to evaluate the patient for elevated troponin likely due to hypoxia. Patient presented to the hospital with a pulse ox of 74%. Patient states that for the past 3 days she has had increasing shortness of breath especially with minimal activity her pulse ox was dropping down to the 60s and 70s. She also feels dizzy at the time and needs to stop and put her head down and rest. She denies any fever or chills. She states her blood pressure at home usually runs under 100 systolic. Currently blood pressure 123/76, heart rate 93, pulse ox 88% on 7 L nasal cannula. Patient is seen today in the emergency center waiting for bed on the cardiac stepdown unit. Patient had an admission in July and at that time she was started on Revatio 20 mg 3 times daily. Patient's not sure she has had any significant improvement of her breathing status with this. Dr. Fontana discussed with patient the recommendations for cardiac catheterization and she is agreeable to move forward with this. It will be scheduled for tomorrow. -EKG: Sinus tachycardia 108 bpm with incomplete right bundle branch block -Chest x-ray: Chronic changes. -CTA of the chest no PE. Moderate emphysema and diffuse pulmonary fibrosis. Mild cardiomegaly, RV dilatation, 4.7 cm infrarenal AAA. -Laboratory studies: WBC 11.3, hemoglobin 13, D-dimer 1.62, sodium 134, potassium potassium 5, CO2 24, BUN 19 and creatinine 0.74. Troponin 0.043, 0.040, 0.036 and 0.027. proBNP 7840. Cepheid viral panel negative. -Home cardiac medications: Amlodipine 2.5 mg daily, aspirin 81 mg daily, atorvastatin 40 mg daily, Lasix 20 mg daily, Revatio 20 mg 3 times daily. -Echocardiogram performed in July revealed EF of 55%, RVSP 67, mild MR, moderate TR. 09/23 Patient seen and examined. Patient is scheduled for left and right heart catheterization with Dr. Fontana today. Blood pressure 120/74, heart rate 68, pulse ox 90% on 6 L high flow nasal cannula. Repeat blood work reveals WBC 19.6, hemoglobin 12.4. 09/24 Patient seen and examined. Yesterday, patient underwent left and right sided cardiac catheterization. Results of the testing reviewed with the patient. Blood pressure 119/76, heart rate 108-1 20s, pulse ox 90% on 4 L nasal cannula. Patient states that she feels comfortable at this time. Physical examination: Gen: This is a 74-year-old female and appears to be comfortable at rest. VS: reviewed HEENT: Head is atraumatic, normocephalic. Pupils equal, round. Sclerae is anicteric. NECK: Supple. No JVD. LUNGS: Diminished breath sounds bilaterally. No intercostal retractions. HEART: Regular rate and rhythm. No murmur. ABDOMEN: Soft No tenderness. EXTREMITIES: No pedal edema. No calf tenderness. NEUROLOGICAL: Patient is awake, alert and oriented x3. Assessment: Elevated troponin, most likely due type II NSTEMI from hypoxia Acute on chronic hypoxic respiratory failure COPD exacerbation Pulmonary hypertension Carotid stenosis AAA Plan: Continue patient on aspirin 81 mg daily, atorvastatin, Lasix 20 mg daily, Continue patient on Revatio 20 mg 3 times daily Add metoprolol succinate 12.5 mg daily for heart rate control Further recommendations to follow based upon clinical course Nurse practitioner note has been reviewed, I agree with documented findings and plan of care. Patient was seen and examined. Objective - Vital Signs Vital signs: Vital Signs Temp 98.0 F 09/24/24 11:50 Pulse 108 H 09/24/24 12:02 Resp 20 09/24/24 12:02 BP 119/76 09/24/24 11:50 Pulse Ox 90 L 09/24/24 11:50 FiO2 Intake & Output 09/23/24 09/24/24 09/24/24 18:59 06:59 18:59 Intake Total 496.953 480 80 Output Total 200 Balance 496.953 480 -120 Weight 59.421 kg 65 kg Intake: IV 225.86 20 Heparin Sod,Pork in 0.45% 49.86 NaCl 25,000 unit In 0.45 % NaCl 1 250ml.bag @ 12 UNITS/KG/HR 7.131 mls/hr IV .Q24H ILA Rx#: [id number] Invasive Line 1 20 Intake, IV Titration 91.093 Amount Heparin Sod,Pork in 0.45% 91.093 NaCl 25,000 unit In 0.45 % NaCl 1 250ml.bag @ 12 UNITS/KG/HR 7.131 mls/hr IV .Q24H ILA Rx#: [id number] Oral 180 480 60 Output: Urine 200 Other: Voiding Method Bedside Commode Bedside Commode # Voids 1 1 # Bowel Movements 1 - Labs CBC & Chem 7: 09/24/24 07:38 09/24/24 07:38 Labs: Abnormal Lab Results - Last 24 Hours (Table) 09/23/24 09/23/24 09/24/24 Range/Units 16:10 20:10 06:01 WBC (3.8-10.6) k/uL MCHC (31.0-37.0) g/dL RDW (11.5-15.5) % Neutrophils # (1.3-7.7) k/uL Lymphocytes # (1.0-4.8) k/uL Carbon Dioxide (22-30) mmol/L BUN (7-17) mg/dL Glucose (74-99) mg/dL POC Glucose (mg/dL) 232 H 210 H 163 H (70-110) mg/dL Total Protein (6.3-8.2) g/dL 09/24/24 09/24/24 09/24/24 Range/Units 07:38 07:38 11:44 WBC 16.7 H (3.8-10.6) k/uL MCHC 30.8 L (31.0-37.0) g/dL RDW 16.2 H (11.5-15.5) % Neutrophils # 15.6 H (1.3-7.7) k/uL Lymphocytes # 0.5 L (1.0-4.8) k/uL Carbon Dioxide 21 L (22-30) mmol/L BUN 29 H (7-17) mg/dL Glucose 125 H (74-99) mg/dL POC Glucose (mg/dL) 176 H (70-110) mg/dL Total Protein 6.1 L (6.3-8.2) g/dL
--- NOTE | 2024-09-24 16:16 | P.PN ---
Subjective Progress Note Date: 09/24/24 Patient is a 74-year-old female with past medical history significant for COPD. Normally oxygen dependent on, 4 L/min nasal cannula 17/02. Also, takes a daily prednisone 10 mg tablet. Does follow in the pulmonary office with Dr. Colunga. She is maintained on Trelegy Ellipta inhaler daily. Her primary care provider is Dr. Chopra. She also has past medical history significant for pulmonary hypertension, systemic hypertension, AAA, and peripheral vascular disease. Of note, patient recently hospitalized in July, for RSV tracheobronchitis and COPD exacerbation. Returns to the emergency department yesterday afternoon complaining of acute on chronic dyspnea. States that her oxygen saturations are continuously less than 85% while resting and dropping down to the 60s during activity. She has been lightheaded with activity no significant change in her coughing or sputum purulence. No fevers or chills. Does endorse runny nose and sore throat. Occasional nosebleeds, that she attributes to her nasal cannula. Denies any chest pain, heart palpitations, syncopal events, lower extremity edema. She was tachycardic, tachypneic, and hypoxic on arrival. Placed on 6 L/min nasal cannula. Workup in the ED including a chest x-ray which does not show any acute cardiopulmonary process, chronic parenchymal changes noted bilaterally. No focal airspace opacities, pleural effusions, pneumothoraces. CBC: WBC count 16.4, hemoglobin 13.8, platelets 242. CMP: Sodium 140, potassium 3.3, chloride 101, serum bicarb 27, BUN 20, creatinine 0.87, glucose 132. Lactic 1.2. D-dimer 1.62. Serial troponins elevated 0.04, 0.04, 0.036, and 0.027. NT proBNP 7840. Recent echocardiogram done during a hospitalization in July, demonstrating preserved left ventricular ejection fraction of 55%, severe RV dilation/dysfunction, pulmonary hypertension with an RVSP of 67, mild mitral regurgitation and moderate tricuspid regurgitation. Viral screen negative for influenza A/B, RSV, COVID. Patient currently being evaluated in the ED, endorses above-mentioned symptoms. She is on 6 L/min nasal cannula. SpO2 reading 88%. Not particularly distressed. Current vital signs are stable. The patient is seen today September 23, 2024 in follow-up on the selective care unit. She is currently resting comfortably in bed. Awake and alert in no acute distress. Maintaining O2 saturations in the 90s on 4 L/min per nasal cannula. She remains on a heparin drip. The plan is for right and left heart catheterization today. White count 19.6. Hemoglobin 12.4. Platelets 245. Glucose 161. She is continued on DuoNeb inhalations, Solu-Medrol. Remains on her home Trelegy. Remains on oral diuretics. Normal saline at 75 mL/h. The patient is seen today September 24, 2024 in follow-up on the selective care unit. She is awake and alert in no acute distress. Denies any worsening shortness of breath, cough or congestion. She is maintaining good O2 saturations in the 90s on 4 L/min per nasal cannula. She did undergo a right and left cardiac catheterization yesterday. Continue to treat medically. White count 16.7. Hemoglobin 12.7. Platelets 231. Sodium 139. Potassium 4.2. Bicarb 21. BUN 29. Creatinine 0.77. Glucose 125. She remains on DuoNeb inhalations, Solu-Medrol. Heparin for DVT prophylaxis. Objective - Vital Signs Vital signs: Vital Signs Temp 98.0 F 09/24/24 11:50 Pulse 103 H 09/24/24 15:57 Resp 22 09/24/24 15:57 BP 119/76 09/24/24 11:50 Pulse Ox 90 L 09/24/24 11:50 FiO2 Intake & Output 09/23/24 09/24/24 09/24/24 18:59 06:59 18:59 Intake Total 496.953 480 198 Output Total 200 Balance 496.953 480 -2 Weight 59.421 kg 65 kg Intake: IV 225.86 20 Heparin Sod,Pork in 0.45% 49.86 NaCl 25,000 unit In 0.45 % NaCl 1 250ml.bag @ 12 UNITS/KG/HR 7.131 mls/hr IV .Q24H ILA Rx#: [id number] Invasive Line 1 20 Intake, IV Titration 91.093 Amount Heparin Sod,Pork in 0.45% 91.093 NaCl 25,000 unit In 0.45 % NaCl 1 250ml.bag @ 12 UNITS/KG/HR 7.131 mls/hr IV .Q24H ILA Rx#: [id number] Oral 180 480 178 Output: Urine 200 Other: Voiding Method Bedside Commode Bedside Commode # Voids 1 1 # Bowel Movements 1 - Exam GENERAL EXAM: Alert, very pleasant 74-year-old female, on 4 L/min nasal cannula, in no acute distress. HEAD: Normocephalic and atraumatic EYES: Normal reaction of pupils, equal size. Nonicteric sclera. No nystagmus. NOSE: Clear with pink turbinates. THROAT: No erythema or exudates. NECK: No masses, no JVD. No carotid bruit with strong palpable pulse b ilaterally CHEST: No chest wall deformity. LUNGS: Equal air entry with no crackles, wheeze, rhonchi or dullness. CVS: S1 and S2 normal with no audible murmur, regular rhythm. No extra heart sounds ABDOMEN: No hepatosplenomegaly, active bowel sounds, no guarding or rigidity. SPINE: No scoliosis or deformity SKIN: No rashes CENTRAL NERVOUS SYSTEM: Alert and oriented, cranial nerves II through XII intact, tone is normal in all 4 extremities. EXTREMITIES: There is no peripheral edema, clubbing, or cyanosis. Peripheral pulses are intact. - Labs CBC & Chem 7: 09/24/24 07:38 09/24/24 07:38 Labs: Abnormal Lab Results - Last 24 Hours (Table) 09/23/24 09/23/24 09/24/24 Range/Units 16:10 20:10 06:01 WBC (3.8-10.6) k/uL MCHC (31.0-37.0) g/dL RDW (11.5-15.5) % Neutrophils # (1.3-7.7) k/uL Lymphocytes # (1.0-4.8) k/uL Carbon Dioxide (22-30) mmol/L BUN (7-17) mg/dL Glucose (74-99) mg/dL POC Glucose (mg/dL) 232 H 210 H 163 H (70-110) mg/dL Total Protein (6.3-8.2) g/dL 09/24/24 09/24/24 09/24/24 Range/Units 07:38 07:38 11:44 WBC 16.7 H (3.8-10.6) k/uL MCHC 30.8 L (31.0-37.0) g/dL RDW 16.2 H (11.5-15.5) % Neutrophils # 15.6 H (1.3-7.7) k/uL Lymphocytes # 0.5 L (1.0-4.8) k/uL Carbon Dioxide 21 L (22-30) mmol/L BUN 29 H (7-17) mg/dL Glucose 125 H (74-99) mg/dL POC Glucose (mg/dL) 176 H (70-110) mg/dL Total Protein 6.1 L (6.3-8.2) g/dL Assessment and Plan Assessment: Acute on chronic hypoxemic respiratory failure, currently on 4 L/min nasal cannula, chest x-ray which does not show any acute cardiopulmonary process, ch ronic parenchymal changes noted bilaterally. No focal airspace opacities, pleural effusions, pneumothoraces. CT angiogram ruled out acute pulmonary embolism. There is moderate emphysema and diffuse bilateral pulmonary fibrotic changes. No acute pulmonary process Acute leukocytosis Acute on chronic dyspnea Acute COPD exacerbation Oxygen and steroid-dependent chronic obstructive pulmonary disease Chronic oxygen dependence, normally maintained on 4 L/min nasal cannula Elevated troponins, downtrending, did undergo a right and left heart catheterization yesterday September 23, 2024, to be treated medically Pulmonary hypertension, suspect group 3 Recent hospitalization for RSV tracheobronchitis Infrarenal abdominal aortic aneurysm, 4.7 cm follows with vascular surgery outpatient Systemic hypertension Peripheral vascular disease and carotid artery stenosis Former tobacco smoker Anxiety/depression Plan: The patient was seen and evaluated Labs and medications reviewed Currently stable on 4 L nasal cannula Continue bronchodilators, steroids Continue her home Trelegy Continue oral diuretics Home once cleared by cardiology I have personally seen and examined the patient, performed the documentation and the assessment and plan as written. Number of minutes spent on the visit: 10 Dictation was produced using [employer] dictation software. Please excuse any grammatical, word or spelling errors.
[2024-09-24 16:19] LABS: Glucose,Whole Blood 232 mg/dL (70-110)
[2024-09-24] MEDS: HEPARIN SODIUM,PORCINE 5,000 UNIT/ML 1 ML VIAL SQ SCH (16:21)
--- NOTE | 2024-09-24 16:26 | P.CARDCATH ---
Description of Procedure: PROCEDURES PERFORMED: Left and right heart catheterization, bilateral coronary angiography, ultrasound guided arterial access INDICATION: Pulmonary hypertension, non-STEMI CONSENT:I have discussed the risks, benefits and alternative therapies for the above-mentioned procedure and for both sedation/analgesia as well as necessary blood product administration, if indicated, as they pertain to this patient. The patient has indicated understanding and acceptance of the risks and procedures discussed. PROCEDURE: After the risks, benefits and alternatives of the above mentioned procedure explained in detail with the patient, informed consent was obtained. Patient was taken to the catheterization lab and prepped and draped in usual fashion. Ultrasound guidance was used to assess for arterial access. 1% lidocaine was used to anesthetize the right radial artery and right brachia vein. A 6-Tajik sheath was placed in the right radial artery and additional 6Fr sheath in the right brachial vein using modified Seldinger technique and ultrasound guidance. A 6 Tajik Lenoir-Fina catheter was inserted into the right atrium, right ventricle, PA and pulmonary capillary wedge position and pressure measurements and oxygen saturations were obtained. Left coronary angiography was performed with a 5-Tajik JL 3.5 catheter and right coronary angiography was performed with a 5-Tajik FR5 catheter in various views. A 5-Tajik FR5 catheter was inserted into the left ventricle and pressure measurements were obtained. The right radial sheath was removed and a TR band was placed with hemostasis achieved. The patient tolerated the procedure well. Patient was transported back to the post catheterization holding area in stable condition. Conscious Sedation: Patient was monitored under the direct supervision of myself for conscious sedation using Versed and fentanyl for a total duration of 41 minutes HEMODYNAMICS: Aorta: 114/69 LV: 121/7, LVEDP 14 PCWP: 15 PA: 63/39 RV: 70/5 RA: 14 Right atrial oxygen saturation: 66% PA oxygen saturation: 60% Right radial oxygen saturation: 93% on 5 L nasal cannula Cardiac output by Claudia: 5.1 L/min Cardiac index by Claudia: 3.1 L/min/m Cardiac output by thermodilution: 5.5 L/min Cardiac index by thermal dilution: 3.3 L/min/m SELECTIVE CORONARY ARTERIOGRAPHY: LEFT MAIN: The left main is a large caliber vessel which bifurcates into the LAD and circumflex. There is no significant stenosis. LEFT ANTERIOR DESCENDING CORONARY ARTERY: LAD is a large caliber vessel which wraps around to the apex. There are mild luminal irregularities with a mid to distal LAD 30 to 40% stenosis LEFT CIRCUMFLEX CORONARY ARTERY: Left circumflex is a moderate caliber vessel with mild luminal irregularities of the circumflex and OM1 has a 40% stenosis. RIGHT CORONARY ARTERY: The right coronary artery is a moderate caliber vessel which gives off a PDA and PLV branch and is the dominant vessel. There is diffuse mid 20 to 30% stenosis and a mid to distal RCA 50% stenosis. There is a small aneurysmal portion measuring approximately 1.5 mm of the mid RCA. FINAL IMPRESSION: 1. CAD as described above including 30 to 40% mid to distal LAD, 40% OM1, 50% distal RCA stenosis and small aneurysmal portion of the mid RCA 2. Normal left sided filling pressures and elevated right sided filling p ressures 3. Precapillary pulmonary hypertension PLAN: 1. Aggressive risk factor modification per most recent ACC/AHA guidelines. 2. More aggressive pulmonary hypertension regimen.
[2024-09-24 20:28] LABS: Glucose,Whole Blood 163 mg/dL (70-110)
[2024-09-25 06:30] LABS: Glucose,Whole Blood 97 mg/dL (70-110)
[2024-09-25 07:26] LABS: Anisocytosis Slight; Basophils % (A) 0 %; Eosinophils % (A) 0 %; HCT 41.6 % (34.0-46.0); HGB 12.5 gm/dL (11.4-16.0); Hypochromasia Moderate; Lymphocytes # (A) 1.7 k/uL (1.0-4.8); Lymphocytes % (A) 10 %; MCH 29.3 pg (25.0-35.0); MCHC 30.2 g/dL (31.0-37.0); Mean Platelet Volume 9.1; Monocytes # (A) 0.9 k/uL (0-1.0); Monocytes % (A) 5 %; Neutrophils # (A) 15.2 k/uL (1.3-7.7); Neutrophils % (A) 84 %; Platelet Count 203 k/uL (150-450); RBC 4.29 m/uL (3.80-5.40); RDW 16.1 % (11.5-15.5)
[2024-09-25 07:37] LABS: African American GFR (CKD) 85 (>60 ml/min/1.73 sqM); Anion Gap 6 mmol/L; Blood Urea Nitrogen 31 mg/dL (7-17); Calcium 9.2 mg/dL (8.4-10.2); Carbon Dioxide 24 mmol/L (22-30); Chloride 107 mmol/L (98-107); Glucose 85 mg/dL (74-99); Non-African American GFR(CKD) 74 (>60 ml/min/1.73 sqM); Potassium 4.4 mmol/L (3.5-5.1); Sodium 137 mmol/L (137-145)
[2024-09-25 08:08] VITALS: TEMP 97.6
[2024-09-25] MEDS: DICYCLOMINE 20 MG TAB PO SCH (08:12)
[2024-09-25] MEDS: predniSONE 20 MG TAB PO SCH (08:12)
[2024-09-25 11:20] VITALS: BP 115/70; RESP 20
[2024-09-25 11:35] LABS: Glucose,Whole Blood 105 mg/dL (70-110)
--- NOTE | 2024-09-25 12:38 | P.DS ---
Providers Date of admission: 09/21/24 17:08 Expected date of discharge: 09/25/24 Attending physician: Aleta Ghosh MD Consults: 09/21/24 16:56 Consult Physician Routine Consulting Provider: Jose Elias Sadler Consult Reason/Comments: COPD with acute exacerbation Do you want consulting provider notified?: Yes 09/21/24 16:57 Consult Physician Routine Consulting Provider: Eamon Jacome Consult Reason/Comments: elevated trop, likely due to hypoxia but pt also with cardiac hx Do you want consulting provider notified?: Yes Primary care physician: Nolan Chopra Hospital Course: Discharge Diagnosis: Acute on chronic respiratory failure with hypoxia Advanced COPD with acute exacerbation Moderate to severe pulmonary hypertension NSTEMI likely type II Infrarenal abdominal aortic aneurysm Hypomagnesemia, resolved Hypokalemia, resolved Hypertension Hyperlipidemia Anxiety and depression Hospital Course: 74-year-old female with a past medical history of advanced COPD with chronic hypoxic respiratory failure home oxygen dependent on 4 L, severe pulmonary hypertension, infrarenal abdominal aortic aneurysm reported at approximately 6 cm and awaiting repair, hypertension, hyperlipidemia, and former smoker with > 40 pack per year history. Patient reports that she follows with Dr. 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 Patient presented to the emergency department with increasing shortness of breath x 3 days. Patient reports on Friday she began to develop worsening shortness of breath, congestion, and productive cough. She denies having any fevers, chills, dizziness, lightheadedness, diaphoresis, chest pain, palpitations, abdominal pain, back pain, nausea, vomiting, or experiencing any numbness/tingling/weakness/swelling in her extremities. She recently underwent 7-day hospitalization for RSV COPD exacerbation from 08/06/2024 through 08/13/2024. She reports going back home at her baseline and feeling at her baseline until just 3 days ago and stated symptoms rapidly worsened. Upon arrival to our facility, patient underwent evaluation in the emergency department. Vital signs upon arrival show blood pressure 102/67, heart rate 113, respiratory rate 24, temp 97.7 F, and SpO2 of 74% on 4 L. Supplemental oxygen increased to 6 L and patient maintaining SpO2 of 90% at this time. EKG completed showing sinus tachycardia with occasional PVC and mild ST depression in inferior leads II, III, and aVF. Chest x-ray completed negative for acute cardiopulmonary process. Labs completed and reviewed. CBC showing leukocytosis with WBC count of 16.4. Coagulation profile normal findings. BMP showing hypokalemia with potassium of 3.3 and mild prerenal azotemia with BUN of 20. Blood glucose with 132. Lactic acid elevated at 2.1. Magnesium was low at 1.5. Liver profile unremarkable. Troponin was elevated at 0.043 with proBNP of 7840. Patient admitted under our services with consultation to and pulmonology and cardiology. Being treated for COPD with exacerbation. On steroids, bronchodilators was on heparin drip, underwent cardiac cath. Cardiac cath showed mid to distal LAD 30 to 40% stenosis, 40% OM1, 50% distal RCA stenosis, elevated right-sided filling pressures, precapillary pulmonary hypertension. Patient being discharged on metoprolol, continue chronic steroids, follow-up with PCP, pulmonology and cardiology. She will need follow-up with pulmonary hypertension specialist. Patient seen and examined at bedside. Vital signs reviewed and stable. General: Nontoxic, no distress, appears at stated age Derm: Warm, dry Head: Atraumatic, normocephalic, symmetric Eyes: EOMI, no lid lag, anicteric sclera Mouth: No lip lesion, mucus membranes moist Cardiovascular: S1S2 reg, no murmur Lungs: CTA bilateral, no rhonchi, no rales, no accessory muscle use, supplemental oxygen Abdominal: Soft, nontender to palpation, no guarding, no appreciable organomegaly Ext: No gross muscle atrophy, no edema, no contractures Neuro: CN II-XI grossly intact, no focal neuro deficits Psych: Alert, oriented, appropriate affect A total of 36 minutes of time were spent preparing this complex discharge summary. Patient was discharged on 09/25/2024 at 1204. Patient Condition at Discharge: Stable Plan - Discharge Summary Discharge Rx Participant: Yes New Discharge Prescriptions: New Metoprolol Succinate (ER) [Toprol XL] 12.5 mg PO DAILY #60 tab Continue [place] Pelham 20mg 20 mg PO DAILY Atorvastatin [Lipitor] 40 mg PO DAILY Dicyclomine [Bentyl] 10 mg PO TID Ergocalciferol [Vitamin D2 (1250 Mcg = 99888 Iu)] 1,250 mcg PO MO Furosemide [Lasix] 20 mg PO DAILY Ipratropium/Albuter 20-100Mcg [Combivent Respimat 20-100Mcg Inhaler] 1 puff INHALATION RT-QID Sertraline [Zoloft] 50 mg PO DAILY guaiFENesin [Mucinex] 1,200 mg PO BID #30 tab Sildenafil [Revatio] 20 mg PO TID #90 tab amLODIPine [Norvasc] 2.5 mg PO DAILY PRN PRN Reason: high bp Aspirin EC [Ecotrin Low Dose] 81 mg PO DAILY Cetirizine HCl [Zyrtec] 10 mg PO DAILY Fluticasone/Umeclidin/Vilanter [Trelegy Ellipta 200-62.5-25] 1 puff INHALATION RT-DAILY Ipratropium-Albuterol Nebulize [Duoneb 0.5 mg-3 mg/3 ml Soln] 3 ml INHALATION RT-QID PRN PRN Reason: Shortness Of Breath Pantoprazole [Protonix] 40 mg PO AC-BRKFST #30 tab Acetaminophen Tab [Tylenol] 650 mg PO Q4HR PRN tab PRN Reason: Fever And/Or Mild Pain predniSONE 5 mg PO Q48H predniSONE 10 mg PO Q48H #90 tab Discharge Medication List Aspirin EC [Ecotrin Low Dose] 81 mg PO DAILY 08/06/24 [History] Atorvastatin [Lipitor] 40 mg PO DAILY 08/06/24 [History] Cetirizine HCl [Zyrtec] 10 mg PO DAILY 08/06/24 [History] Dicyclomine [Bentyl] 10 mg PO TID 08/06/24 [History] Ergocalciferol [Vitamin D2 (1250 Mcg = 81338 Iu)] 1,250 mcg PO MO 08/06/24 [History] Fluticasone/Umeclidin/Vilanter [Trelegy Ellipta 200-62.5-25] 1 puff INHALATION RT-DAILY 08/06/24 [History] Furosemide [Lasix] 20 mg PO DAILY 08/06/24 [History] Ipratropium-Albuterol Nebulize [Duoneb 0.5 mg-3 mg/3 ml Soln] 3 ml INHALATION RT-QID PRN 08/06/24 [History] Ipratropium/Albuter 20-100Mcg [Combivent Respimat 20-100Mcg Inhaler] 1 puff INHALATION RT-QID 08/06/24 [History] [place] Pelham 20mg 20 mg PO DAILY 08/06/24 [History] Sertraline [Zoloft] 50 mg PO DAILY 08/06/24 [History] amLODIPine [Norvasc] 2.5 mg PO DAILY PRN 08/06/24 [History] Acetaminophen Tab [Tylenol] 650 mg PO Q4HR PRN tab 08/13/24 [Rx] Pantoprazole [Protonix] 40 mg PO AC-BRKFST #30 tab 08/13/24 [Rx] Sildenafil [Revatio] 20 mg PO TID #90 tab 08/13/24 [Rx] guaiFENesin [Mucinex] 1,200 mg PO BID #30 tab 08/13/24 [Rx] predniSONE 5 mg PO Q48H 09/21/24 [History] Metoprolol Succinate (ER) [Toprol XL] 12.5 mg PO DAILY #60 tab 09/25/24 [Rx] predniSONE 10 mg PO Q48H #90 tab 09/25/24 [Rx] Follow up Appointment(s)/Referral(s): Nolan Chopra MD [Primary Care Provider] - 1-2 days (Offices are closed at this time. Please call Friday09/27/2024 to make a post hospital follow up appointment.) Joey Fontana DO [STAFF PHYSICIAN] - 1 Week (Offices are closed at this time. Please call Friday09/27/2024 to make a post hospital follow up appointment.) Pietro Colunga MD [STAFF PHYSICIAN] - 1 Week (Offices are closed at this time. Please call Friday09/27/2024 to make a post hospital follow up appointment.) Patient Instructions/Handouts: Heart Attack (DC), Coronary Artery Disease (DC), COPD (Chronic Obstructive Pulmonary Disease) (DC), Pulmonary Arterial Hypertension (DC) Activity/Diet/Wound Care/Special Instructions: Please see PCP, pulmonology, and cardiology. You will likely need to see pulmonary hypertension specialist. Continue home steroids alternating 5 mg and 10 mg every other day. . Discharge Disposition: HOME SELF-CARE
--- NOTE | 2024-09-25 13:16 | P.PN ---
Subjective Progress Note Date: 09/25/24 Reason for Consult (text): Elevated troponin likely due to hypoxia History of present illness: This is a 74-year-old female patient previously seen Dr. Burgess with plan to move over to Dr. Fontana's practice and has an appointment scheduled at the [place] office. She has a past medical history of AAA approximately 6 cm awaiting repair, pulmonary hypertension, carotid stenosis, COPD, chronic hypoxic respiratory failure on home oxygen at 4 L nasal cannula. We have been asked to evaluate the patient for elevated troponin likely due to hypoxia. Patient presented to the hospital with a pulse ox of 74%. Patient states that for the past 3 days she has had increasing shortness of breath especially with minimal activity her pulse ox was dropping down to the 60s and 70s. She also feels dizzy at the time and needs to stop and put her head down and rest. She denies any fever or chills. She states her blood pressure at home usually runs under 100 systolic. Currently blood pressure 123/76, heart rate 93, pulse ox 88% on 7 L nasal cannula. Patient is seen today in the emergency center waiting for bed on the cardiac stepdown unit. Patient had an admission in July and at that time she was started on Revatio 20 mg 3 times daily. Patient's not sure she has had any significant improvement of her breathing status with this. Dr. Fontana discussed with patient the recommendations for cardiac catheterization and she is agreeable to move forward with this. It will be scheduled for tomorrow. -EKG: Sinus tachycardia 108 bpm with incomplete right bundle branch block -Chest x-ray: Chronic changes. -CTA of the chest no PE. Moderate emphysema and diffuse pulmonary fibrosis. Mild cardiomegaly, RV dilatation, 4.7 cm infrarenal AAA. -Laboratory studies: WBC 11.3, hemoglobin 13, D-dimer 1.62, sodium 134, potassium potassium 5, CO2 24, BUN 19 and creatinine 0.74. Troponin 0.043, 0.040, 0.036 and 0.027. proBNP 7840. Cepheid viral panel negative. -Home cardiac medications: Amlodipine 2.5 mg daily, aspirin 81 mg daily, atorvastatin 40 mg daily, Lasix 20 mg daily, Revatio 20 mg 3 times daily. -Echocardiogram performed in July revealed EF of 55%, RVSP 67, mild MR, moderate TR. 09/23 Patient seen and examined. Patient is scheduled for left and right heart catheterization with Dr. Fontana today. Blood pressure 120/74, heart rate 68, pulse ox 90% on 6 L high flow nasal cannula. Repeat blood work reveals WBC 19.6, hemoglobin 12.4. 09/24 Patient seen and examined. Yesterday, patient underwent left and right sided cardiac catheterization. Results of the testing reviewed with the patient. Blood pressure 119/76, heart rate 108-1 20s, pulse ox 90% on 4 L nasal cannula. Patient states that she feels comfortable at this time. 09/25. Patient states that she is feeling better today. She still has a cough with sputum production. No fever or chills. No chest pain or chest pressure. No lower extremity edema. She does have some edema in her hands. She is on 4 L nasal cannula with pulse ox 88%. Blood pressure 115/70, heart rate in the 80s. WBC 18, hemoglobin 12.5. Creatinine 0.8. Physical examination: Gen: This is a 74-year-old female and appears to be comfortable at rest. VS: reviewed HEENT: Head is atraumatic, normocephalic. Pupils equal, round. Sclerae is anicteric. NECK: Supple. No JVD. LUNGS: Diminished breath sounds bilaterally. No intercostal retractions. HEART: Regular rate and rhythm. No murmur. ABDOMEN: Soft No tenderness. EXTREMITIES: No pedal edema. No calf tenderness. NEUROLOGICAL: Patient is awake, alert and oriented x3. Assessment: Elevated troponin, most likely due type II NSTEMI from hypoxia Acute on chronic hypoxic respiratory failure COPD exacerbation Pulmonary hypertension Carotid stenosis AAA Plan: Continue patient on aspirin 81 mg daily, atorvastatin, Lasix 20 mg daily, Continue patient on Revatio 20 mg 3 times daily Continue metoprolol succinate 12.5 mg daily for heart rate control Patient is cleared for discharge from cardiology and will follow-up with Dr. Fontana in the office in 1 to 2 weeks. Nurse practitioner note has been reviewed, I agree with documented findings and plan of care. Patient was seen and examined. Objective - Vital Signs Vital signs: Vital Signs Temp 97.6 F 09/25/24 08:03 Pulse 88 09/25/24 11:33 Resp 20 09/25/24 11:16 BP 115/70 09/25/24 11:16 Pulse Ox 88 L 09/25/24 11:16 FiO2 Intake & Output 09/24/24 09/25/24 09/25/24 18:59 06:59 18:59 Intake Total 316 130 Output Total 200 100 Balance 116 30 Weight 64.9 kg Intake: IV 20 10 Invasive Line 1 20 10 Oral 296 120 Output: Urine 200 100 Other: Voiding Method Bedside Commode Bedside Commode # Voids 1 1 1 # Bowel Movements 1 1 - Labs CBC & Chem 7: 09/25/24 06:32 09/25/24 06:32 Labs: Abnormal Lab Results - Last 24 Hours (Table) 09/24/24 09/24/24 09/24/24 Range/Units 11:44 16:17 20:26 WBC (3.8-10.6) k/uL MCHC (31.0-37.0) g/dL RDW (11.5-15.5) % Neutrophils # (1.3-7.7) k/uL BUN (7-17) mg/dL POC Glucose (mg/dL) 176 H 232 H 163 H (70-110) mg/dL 09/25/24 09/25/24 Range/Units 06:32 06:32 WBC 18.0 H (3.8-10.6) k/uL MCHC 30.2 L (31.0-37.0) g/dL RDW 16.1 H (11.5-15.5) % Neutrophils # 15.2 H (1.3-7.7) k/uL BUN 31 H (7-17) mg/dL POC Glucose (mg/dL) (70-110) mg/dL
--- NOTE | 2024-09-25 15:22 | P.PN ---
Subjective Progress Note Date: 09/25/24 Patient is a 74-year-old female with past medical history significant for COPD. Normally oxygen dependent on, 4 L/min nasal cannula 17/02. Also, takes a daily prednisone 10 mg tablet. Does follow in the pulmonary office with Dr. Colunga. She is maintained on Trelegy Ellipta inhaler daily. Her primary care provider is Dr. Chopra. She also has past medical history significant for pulmonary hypertension, systemic hypertension, AAA, and peripheral vascular disease. Of note, patient recently hospitalized in July, for RSV tracheobronchitis and COPD exacerbation. Returns to the emergency department yesterday afternoon complaining of acute on chronic dyspnea. States that her oxygen saturations are continuously less than 85% while resting and dropping down to the 60s during activity. She has been lightheaded with activity no significant change in her coughing or sputum purulence. No fevers or chills. Does endorse runny nose and sore throat. Occasional nosebleeds, that she attributes to her nasal cannula. Denies any chest pain, heart palpitations, syncopal events, lower extremity edema. She was tachycardic, tachypneic, and hypoxic on arrival. Placed on 6 L/min nasal cannula. Workup in the ED including a chest x-ray which does not show any acute cardiopulmonary process, chronic parenchymal changes noted bilaterally. No focal airspace opacities, pleural effusions, pneumothoraces. CBC: WBC count 16.4, hemoglobin 13.8, platelets 242. CMP: Sodium 140, potassium 3.3, chloride 101, serum bicarb 27, BUN 20, creatinine 0.87, glucose 132. Lactic 1.2. D-dimer 1.62. Serial troponins elevated 0.04, 0.04, 0.036, and 0.027. NT proBNP 7840. Recent echocardiogram done during a hospitalization in July, demonstrating preserved left ventricular ejection fraction of 55%, severe RV dilation/dysfunction, pulmonary hypertension with an RVSP of 67, mild mitral regurgitation and moderate tricuspid regurgitation. Viral screen negative for influenza A/B, RSV, COVID. Patient currently being evaluated in the ED, endorses above-mentioned symptoms. She is on 6 L/min nasal cannula. SpO2 reading 88%. Not particularly distressed. Current vital signs are stable. The patient is seen today September 23, 2024 in follow-up on the selective care unit. She is currently resting comfortably in bed. Awake and alert in no acute distress. Maintaining O2 saturations in the 90s on 4 L/min per nasal cannula. She remains on a heparin drip. The plan is for right and left heart catheterization today. White count 19.6. Hemoglobin 12.4. Platelets 245. Glucose 161. She is continued on DuoNeb inhalations, Solu-Medrol. Remains on her home Trelegy. Remains on oral diuretics. Normal saline at 75 mL/h. The patient is seen today September 24, 2024 in follow-up on the selective care unit. She is awake and alert in no acute distress. Denies any worsening shortness of breath, cough or congestion. She is maintaining good O2 saturations in the 90s on 4 L/min per nasal cannula. She did undergo a right and left cardiac catheterization yesterday. Continue to treat medically. White count 16.7. Hemoglobin 12.7. Platelets 231. Sodium 139. Potassium 4.2. Bicarb 21. BUN 29. Creatinine 0.77. Glucose 125. She remains on DuoNeb inhalations, Solu-Medrol. Heparin for DVT prophylaxis. The patient is seen today September 25, 2024 in follow-up on the selective care unit. She is currently sitting up at in bed. Awake and alert in no acute distress. Maintaining good O2 saturations in the 90s on 4 L/min per nasal cannula. She is afebrile. Hemodynamically stable. Count 18.0. Hemoglobin 12.5. Platelets 203. Sodium 137. Potassium 4.4. Bicarb 24. BUN 31. Creatinine 0.80. Glucose 85. She remains on DuoNeb inhalations, her home Trelegy, prednisone taper. She is on a oral diuretics. Heparin for DVT prophylaxis. Objective - Vital Signs Vital signs: Vital Signs Temp 97.6 F 09/25/24 08:03 Pulse 88 09/25/24 11:33 Resp 20 09/25/24 11:16 BP 115/70 09/25/24 11:16 Pulse Ox 88 L 09/25/24 11:16 FiO2 Intake & Output 09/24/24 09/25/24 09/25/24 18:59 06:59 18:59 Intake Total 316 370 Output Total 200 100 Balance 116 270 Weight 64.9 kg Intake: IV 20 10 Invasive Line 1 20 10 Oral 296 360 Output: Urine 200 100 Other: Voiding Method Bedside Commode Bedside Commode # Voids 1 1 1 # Bowel Movements 1 1 - Exam GENERAL EXAM: Alert, pleasant 74-year-old female, sitting up in bed, on 4 L/min nasal cannula, in no acute distress. HEAD: Normocephalic and atraumatic EYES: Normal reaction of pupils, equal size. Nonicteric sclera. No nystagmus. NOSE: Clear with pink turbinates. THROAT: No erythema or exudates. NECK: No masses, no JVD. No carotid bruit with strong palpable pulse bilaterally CHEST: No chest wall deformity. LUNGS: Equal air entry with no crackles, wheeze, rhonchi or dullness. CVS: S1 and S2 normal with no audible murmur, regular rhythm. No extra heart sounds ABDOMEN: No hepatosplenomegaly, active bowel sounds, no guarding or rigidity. SPINE: No scoliosis or deformity SKIN: No rashes CENTRAL NERVOUS SYSTEM: Alert and oriented, cranial nerves II through XII intact, tone is normal in all 4 extremities. EXTREMITIES: There is no peripheral edema, clubbing, or cyanosis. Peripheral pulses are intact. - Labs CBC & Chem 7: 09/25/24 06:32 09/25/24 06:32 Labs: Abnormal Lab Results - Last 24 Hours (Table) 09/24/24 09/24/24 09/25/24 Range/Units 16:17 20:26 06:32 WBC 18.0 H (3.8-10.6) k/uL MCHC 30.2 L (31.0-37.0) g/dL RDW 16.1 H (11.5-15.5) % Neutrophils # 15.2 H (1.3-7.7) k/uL BUN (7-17) mg/dL POC Glucose (mg/dL) 232 H 163 H (70-110) mg/dL 09/25/24 Range/Units 06:32 WBC (3.8-10.6) k/uL MCHC (31.0-37.0) g/dL RDW (11.5-15.5) % Neutrophils # (1.3-7.7) k/uL BUN 31 H (7-17) mg/dL POC Glucose (mg/dL) (70-110) mg/dL Assessment and Plan Assessment: Acute on chronic hypoxemic respiratory failure, currently on 4 L/min nasal cannula, chest x-ray which does not show any acute cardiopulmonary process, chronic parenchymal changes noted bilaterally. No focal airspace opacities, pleural effusions, pneumothoraces. CT angiogram ruled out acute pulmonary embolism. There is moderate emphysema and diffuse bilateral pulmonary fibrotic changes. No acute pulmonary process Acute leukocytosis Acute on chronic dyspnea Acute COPD exacerbation Oxygen and steroid-dependent chronic obstructive pulmonary disease Chronic oxygen dependence, normally maintained on 4 L/min nasal cannula Elevated troponins, downtrending, did undergo a right and left heart catheterization yesterday September 23, 2024, to be treated medically Pulmonary hypertension, suspect group 3 Recent hospitalization for RSV tracheobronchitis Infrarenal abdominal aortic aneurysm, 4.7 cm follows with vascular surgery outpatient Systemic hypertension Peripheral vascular disease and carotid artery stenosis Former tobacco smoker Anxiety/depression Plan: The patient was seen and evaluated Labs and medications reviewed Currently stable on 4 L nasal cannula Cleared for discharge from the pulmonary standpoint Continue her home pulmonary medications/oxygen Complete a prednisone taper Follow-up in our office in 1 week I have personally seen and examined the patient, performed the documentation and the assessment and plan as written. Number of minutes spent on the visit: 10 Dictation was produced using [employer] dictation software. Please excuse any grammatical, word or spelling errors.
[2024-09-25 15:33] VITALS: PULSE 80
[2024-09-27] MEDS ORDERED: ERGOCALCIFEROL 1,250 MCG (50,000 IU) CAPSULE PO SCH (09:00)
== END 2024-09-25 15:47 | disposition home or self-care (01) | DRG 189 ==
LOC: EC 13:49 → 3SCARD 17:08
PROVIDERS: ADMIT Internal Medicine; ATTEND Internal Medicine
PROC: B2161ZZ Fluoroscopy of Right and Left Heart using Low Osmolar Contrast (ICD-10-PCS; 2024-09-23)
PROC: B2111ZZ Fluoroscopy of Multiple Coronary Arteries using Low Osmolar Contrast (ICD-10-PCS; 2024-09-23)
PROC: 4A023N8 Measurement of Cardiac Sampling and Pressure, Bilateral, Percutaneous Approach (ICD-10-PCS; principal; 2024-09-23 07:30)
DX: J96.21 Acute and chronic respiratory failure with hypoxia (principal); I21.A1 Myocardial infarction type 2; I27.20 Pulmonary hypertension, unspecified; J44.1 Chronic obstructive pulmonary disease with (acute) exacerbation; I71.43 Infrarenal abdominal aortic aneurysm, without rupture; I10 Essential (primary) hypertension; F32.A Depression, unspecified; I65.29 Occlusion and stenosis of unspecified carotid artery; J43.9 Emphysema, unspecified; E83.42 Hypomagnesemia; E87.6 Hypokalemia; E78.5 Hyperlipidemia, unspecified; F41.9 Anxiety disorder, unspecified; I49.3 Ventricular premature depolarization; R00.0 Tachycardia, unspecified; I25.10 Atherosclerotic heart disease of native coronary artery without angina pectoris; I73.9 Peripheral vascular disease, unspecified; I45.10 Unspecified right bundle-branch block; Z79.82 Long term (current) use of aspirin; Z88.1 Allergy status to other antibiotic agents; Z87.891 Personal history of nicotine dependence; Z99.81 Dependence on supplemental oxygen; Z88.8 Allergy status to other drugs, medicaments and biological substances; Z79.899 Other long term (current) drug therapy; Z79.51 Long term (current) use of inhaled steroids; Z79.52 Long term (current) use of systemic steroids; Z90.710 Acquired absence of both cervix and uterus; Z96.659 Presence of unspecified artificial knee joint
CPT/HCPCS: 36415; 71045; 71046; 71275; 80048; 80053; 82810; 83605; 83735; 83880; 84145; 84484; 85018; 85025; 85027; 85379; 85610; 85730; 87636; 93005; 93460; 94640; 94760; 96361; 96365; 96366; 96367; 96372; 96375; 96376; 99291

== ENCOUNTER 2024-10-24 08:27 | Inpatient (IN) | payer MEDICARE, OTHER ==
--- NOTE | 2024-10-24 09:09 | XR ---
Chest, 2 view. CLINICAL INDICATION: Female, 74 years old with history of difficulty breathing COMPARISON: TECHNIQUE: PA and lateral views the chest are obtained. FINDINGS: There are moderate diffuse interstitial opacities likely chronic in nature. There is no airspace cons olidation. There is no pleural effusion or pneumothorax. The heart and pulmonary vasculature are normal. The osseous structures are intact. IMPRESSION: Stable moderate chronic interstitial changes with no acute cardiopulmonary disease.. [facility], , 10/24/2024 9:07 AM
[2024-10-24 09:10] LABS: ALT 14 U/L (4-34); AST 22 U/L (14-36); African American GFR (CKD) 89 (>60 ml/min/1.73 sqM); Albumin 4.5 g/dL (3.5-5.0); Alkaline Phosphatase 83 U/L (38-126); Anion Gap 12 mmol/L; Blood Urea Nitrogen 19 mg/dL (7-17); Carbon Dioxide 27 mmol/L (22-30); Chloride 102 mmol/L (98-107); Glucose 127 mg/dL (74-99); Magnesium 1.4 mg/dL (1.6-2.3); Non-African American GFR(CKD) 77 (>60 ml/min/1.73 sqM); Sodium 141 mmol/L (137-145); Total Bilirubin 0.9 mg/dL (0.2-1.3); Total Protein 7.4 g/dL (6.3-8.2)
[2024-10-24 09:13] LABS: Potassium 2.7 mmol/L (3.5-5.1)
[2024-10-24 09:18] LABS: NT-Pro-B-Type Natriuretic Pept 9940 pg/mL
[2024-10-24 09:19] LABS: Basophils # (A) 0.1 k/uL (0-0.2); Basophils % (A) 0 %; Eosinophils # (A) 0.1 k/uL (0-0.7); Eosinophils % (A) 1 %; HCT 46.6 % (34.0-46.0); HGB 14.9 gm/dL (11.4-16.0); Hypochromasia Moderate; INR 0.9 (<1.2); Lymphocytes # (A) 1.5 k/uL (1.0-4.8); Lymphocytes % (A) 8 %; MCH 28.6 pg (25.0-35.0); MCHC 31.9 g/dL (31.0-37.0); Mean Platelet Volume 8.3; Monocytes # (A) 0.8 k/uL (0-1.0); Monocytes % (A) 4 %; Neutrophils % (A) 86 %; Partial Thromboplastin Time 22.6 sec (22.0-30.0); Platelet Count 337 k/uL (150-450); Prothrombin Time 10.6 sec (10.0-12.5); RBC 5.19 m/uL (3.80-5.40); RDW 14.9 % (11.5-15.5); WBC 19.7 k/uL (3.8-10.6)
[2024-10-24 09:28] LABS: MCV 89.7 fL (80.0-100.0)
[2024-10-24 09:38] LABS: Influenza A Not Detected (Not Detectd); Influenza B Not Detected (Not Detectd); RSV Not Detected (Not Detectd)
--- NOTE | 2024-10-24 10:23 | ED ---
SOB HPI - General Chief Complaint: Shortness of Breath Stated Complaint: sob Time Seen by Provider: 10/24/24 08:35 Source: patient, EMS Mode of arrival: EMS Limitations: no limitations - History of Present Illness Initial Comments: 74-year-old female with past medical history of pulmonary hypertension on 4 L home O2 who presents to the emergency department with shortness of breath. Patient states she has taken several breathing treatments at home and one was provided by EMS. Still continues to be short of breath which has been ongoing for the past week. States that she was hospitalized in August for shortness of breath due to RSV. Denies any infectious symptoms at this time. No fevers, chills, sick contacts. Does admit to a cough however it has been production of clear sputum. She denies any chest pain. Does admit to history of congestive heart failure. Takes 20 mg of Lasix daily. She does take 10 mg of prednisone daily as well and denies any missed doses. She denies any lower extremity swelling. No calf pain. No history of DVT or PE. States her typical baseline oxygen saturation is 85%. No other alleviating, precipitating or modifying factors - Related Data Home Medications Medication Instructions Recorded Confirmed Aspirin EC [Ecotrin Low Dose] 81 mg PO DAILY 08/06/24 10/24/24 Atorvastatin [Lipitor] 40 mg PO DAILY 08/06/24 10/24/24 Cetirizine HCl [Zyrtec] 10 mg PO DAILY 08/06/24 10/24/24 Dicyclomine [Bentyl] 10 mg PO TID 08/06/24 10/24/24 Ergocalciferol [Vitamin D2 (1250 1,250 mcg PO MO 08/06/24 10/24/24 Mcg = 82899 Iu)] Fluticasone/Umeclidin/Vilanter 1 puff INHALATION RT-DAILY 08/06/24 10/24/24 [Trelegy Ellipta 200-62.5-25] Ipratropium-Albuterol Nebulize 3 ml INHALATION RT-QID PRN 08/06/24 10/24/24 [Duoneb 0.5 mg-3 mg/3 ml Soln] Ipratropium/Albuter 20-100Mcg 1 puff INHALATION RT-QID 08/06/24 10/24/24 [Combivent Respimat 20-100Mcg Inhaler] [place] 20mg 20 mg PO DAILY 08/06/24 10/24/24 Sertraline [Zoloft] 50 mg PO DAILY 08/06/24 10/24/24 amLODIPine [Norvasc] 2.5 mg PO DAILY PRN 08/06/24 10/24/24 Albuterol Sulfate [Ventolin HFA] 2 puff INHALATION RT-Q4H PRN 10/24/24 10/24/24 predniSONE 10 mg PO DAILY 10/24/24 10/24/24 Previous Rx's Medication Instructions Recorded Acetaminophen Tab [Tylenol] 650 mg PO Q4HR PRN tab 08/13/24 Pantoprazole [Protonix] 40 mg PO AC-BRKFST #30 tab 08/13/24 Sildenafil [Revatio] 20 mg PO TID #90 tab 08/13/24 guaiFENesin [Mucinex] 1,200 mg PO BID #30 tab 08/13/24 Metoprolol Succinate (ER) [Toprol 12.5 mg PO DAILY #60 tab 09/25/24 XL] Bumetanide [BUMEX] 1 mg PO DAILY #30 tab 10/28/24 Spironolactone [Aldactone] 12.5 mg PO DAILY #30 tab 10/28/24 predniSONE 10 mg PO DIRECTED #60 tab 10/28/24 Allergies Allergy/AdvReac Type Severity Reaction Status Date / Time levofloxacin [From Levaquin] Allergy Unknown Verified 10/24/24 11:47 tetracycline Allergy Unknown Verified 10/24/24 11:47 Review of Systems ROS Statement: Those systems with pertinent positive or pertinent negative responses have been documented in the HPI. ROS Other: All systems not noted in ROS Statement are negative. Past Medical History Past Medical History: COPD, Hyperlipidemia, Hypertension, Respiratory Disorder Additional Past Medical History / Comment(s): Aortic aneurysm. Pulmonary Hypertension History of Any Multi-Drug Resistant Organisms: None Reported Past Surgical History: Breast Surgery, Hysterectomy Additional Past Surgical History / Comment(s): Knee replacement. Wrist surgery. Cataract surgery Past Anesthesia/Blood Transfusion Reactions: No Reported Reaction Past Psychological History: Depression Smoking Status: Former smoker Past Alcohol Use History: None Reported Past Drug Use History: None Reported - Past Family History Mother Family Medical History: Cancer, Diabetes Mellitus Additional Family Medical History / Comment(s): from lung cancer Father Additional Family Medical History / Comment(s): from brain aneurysm General Exam Limitations: no limitations General appearance: alert, in no apparent distress Head exam: Present: atraumatic, normocephalic, normal inspection Eye exam: Present: normal appearance, PERRL, EOMI. Absent: scleral icterus, conjunctival injection, periorbital swelling ENT exam: Present: normal exam, mucous membranes moist Neck exam: Present: normal inspection. Absent: tenderness, meningismus, lymphadenopathy Respiratory exam: Present: decreased breath sounds. Absent: respiratory distress, wheezes, rales, rhonchi, stridor Cardiovascular Exam: Present: regular rate, normal rhythm, normal heart sounds. Absent: systolic murmur, diastolic murmur, rubs, gallop, clicks GI/Abdominal exam: Present: soft, normal bowel sounds. Absent: distended, tenderness, guarding, rebound, rigid Extremities exam: Present: normal inspection, full ROM, normal capillary refill. Absent: tenderness, pedal edema, joint swelling, calf tenderness Back exam: Present: normal inspection Neurological exam: Present: alert, oriented X3, CN II-XII intact Psychiatric exam: Present: normal affect, normal mood Skin exam: Present: warm, dry, intact, normal color. Absent: rash Course Vital Signs 10/24/24 10/24/24 10/24/24 08:33 08:36 09:33 Temperature 97.6 F Pulse Rate 100 94 Pulse Rate [ Drugless Doctor ] Respiratory 18 22 22 Rate Blood Pressure 127/75 113/86 Blood Pressure [Right Arm Sitting] O2 Sat by Pulse 84 L 88 L Oximetry 10/24/24 10/24/24 10/24/24 12:05 12:14 16:00 Temperature Pulse Rate 87 88 Pulse Rate [ 89 Drugless Doctor ] Respiratory 16 Rate Blood Pressure Blood Pressure 121/83 [Right Arm Sitting] O2 Sat by Pulse 92 L Oximetry 10/24/24 10/24/24 10/24/24 16:02 16:17 19:58 Temperature Pulse Rate 97 99 96 Pulse Rate [ Drugless Doctor ] Respiratory Rate Blood Pressure Blood Pressure [Right Arm Sitting] O2 Sat by Pulse Oximetry 10/24/24 10/24/24 10/24/24 20:02 20:09 22:49 Temperature Pulse Rate 94 101 H 90 Pulse Rate [ Drugless Doctor ] Respiratory 20 18 Rate Blood Pressure 121/83 100/60 Blood Pressure [Right Arm Sitting] O2 Sat by Pulse 94 L 95 Oximetry 10/25/24 10/25/24 10/25/24 00:25 02:00 03:44 Temperature Pulse Rate 90 82 92 Pulse Rate [ Drugless Doctor ] Respiratory 18 20 18 Rate Blood Pressure 100/70 120/87 Blood Pressure [Right Arm Sitting] O2 Sat by Pulse 94 L 87 L Oximetry 10/25/24 10/25/24 10/25/24 05:04 08:23 08:26 Temperature Pulse Rate 100 90 Pulse Rate [ Drugless Doctor ] Respiratory 18 Rate Blood Pressure 117/84 Blood Pressure [Right Arm Sitting] O2 Sat by Pulse 90 L 90 L Oximetry 10/25/24 10/25/24 10/25/24 08:36 09:00 12:02 Temperature Pulse Rate 94 101 H 98 Pulse Rate [ Drugless Doctor ] Respiratory 20 Rate Blood Pressure 136/91 Blood Pressure [Right Arm Sitting] O2 Sat by Pulse 85 L Oximetry 10/25/24 10/25/24 10/25/24 12:11 14:13 16:11 Temperature 97.6 F Pulse Rate 92 95 94 Pulse Rate [ Drugless Doctor ] Respiratory 20 Rate Blood Pressure 100/62 Blood Pressure [Right Arm Sitting] O2 Sat by Pulse 94 L Oximetry 10/25/24 10/25/24 10/25/24 16:24 18:30 20:24 Temperature 98.1 F Pulse Rate 105 H 94 102 H Pulse Rate [ Drugless Doctor ] Respiratory 20 Rate Blood Pressure 119/75 Blood Pressure [Right Arm Sitting] O2 Sat by Pulse 88 L Oximetry 10/25/24 10/25/24 20:32 22:57 Temperature Pulse Rate 100 92 Pulse Rate [ Drugless Doctor ] Respiratory 18 Rate Blood Pressure 113/82 Blood Pressure [Right Arm Sitting] O2 Sat by Pulse 96 Oximetry Medical Decision Making - Medical Decision Making Was pt. sent in by a medical professional or institution (, PA, DANCING MASTER, urgent care, hospital, or senior living...) When possible be specific @ -No Did you speak to anyone other than the patient for history (EMS, parent, family, police, friend...)? What history was obtained from this source @ -Spoke with EMS for history Did you review nursing and triage notes (agree or disagree)? Why? @ -I reviewed and agree with nursing and triage notes Were old charts reviewed (outside hosp., previous admission, EMS record, old EKG, old radiological studies, urgent care reports/EKG's, senior living records)? Report findings @ -No old charts were reviewed Differential Diagnosis (chest pain, altered mental status, abdominal pain women, abdominal pain men, vaginal bleeding, weakness, fever, dyspnea, syncope, headache, dizziness, GI bleed, back pain, seizure, CVA, palpatations, mental health, musculoskeletal)? @ -Differential Dyspnea: Coronary syndrome, arrhythmia, tamponade, asthma, COPD, pulmonary embolism, pneumonia, pneumothorax, pulmonary effusion, anaphylaxis, diabetic ketoacidosis, flailed chest, pulmonary contusion, diaphragmatic rupture, anemia, neuromuscular, this is not meant to be an all-inclusive list. EKG interpreted by me (3pts min.). @ -yes and demonstrates sinus rhythm with rate of 98. IA interval 128. QRS 105. QTc of 425. No acute ST segment elevations or depressions X-rays interpreted by me (1pt min.). @ -Yes which demonstrates stable interstitial change CT interpreted by me (1pt min.). @ -None done U/S interpreted by me (1pt. min.). @ -None done What testing was considered but not performed or refused? (CT, X-rays, U/S, labs)? Why? @ -None What meds were considered but not given or refused? Why? @ -None Did you discuss the management of the patient with other professionals (professionals i.e. , PA, DANCING MASTER, lab, RT, psych nurse, social service agency director, manager credit, teacher, systems support officer, rn field case manager)? Give summary @ -Spoke with Dr. Tineo for admission Was smoking cessation discussed for >3mins.? @ -No Was critical care preformed (if so, how long)? @ -yes, 35 minutes for management of hypoxic respiratory failure Were there social determinants of health that impacted care today? How? (Homelessness, low income, unemployed, alcoholism, drug addiction, transportation, low edu. Level, literacy, decrease access to med. care, nursing home, rehab)? @ -No Was there de-escalation of care discussed even if they declined (Discuss DNR or withdrawal of care, Hospice)? DNR status @ -No What co-morbidities impacted this encounter? (DM, HTN, Smoking, COPD, CAD, Canc er, CVA, ARF, Chemo, Hep., AIDS, mental health diagnosis, sleep apnea, morbid obesity)? @ -Pulmonary hypertension Was patient admitted / discharged? Hospital course, mention meds given and route, prescriptions, significant lab abnormalities, going to OR and other pertinent info. @ -Upon arrival patient seen and evaluated in bed 4. Thorough history and physical exam was performed. Patient was placed on high flow oxygen due to her hypoxia. Laboratory studies are conducted. Chest x-ray was performed. Patient was initiated on breathing treatments and steroids. I do recommend admission due to her hypoxia which patient was agreeable. Spoke with Dr. Tineo for admission Undiagnosed new problem with uncertain prognosis? @ -No Drug Therapy requiring intensive monitoring for toxicity (Heparin, Nitro, Insulin, Cardizem)? @ -No Were any procedures done? @ -No Diagnosis/symptom? @ -acute hypoxic respiratory failure, chronic respiratory insufficiency, history of pulmonary hypertension Acute, or Chronic, or Acute on Chronic? @ -Acute on chronic Uncomplicated (without systemic symptoms) or Complicated (systemic symptoms)? @ -Complicated Side effects of treatment? @ -No Exacerbation, Progression, or Severe Exacerbation? @ -Yes Poses a threat to life or bodily function? How? (Chest pain, [place], [place], pneumonia, PE, COPD, DKA, ARF, appy, cholecystitis, CVA, Diverticulitis, Homicidal, Suicidal, threat to staff... and all critical care pts) @ -Yes this patient is hypoxic - Lab Data Result diagrams: 10/27/24 08:12 10/27/24 08:12 Lab Results 10/24/24 10/24/24 10/24/24 Range/Units 08:50 08:50 08:50 WBC 19.7 H (3.8-10.6) k/uL RBC 5.19 (3.80-5.40) m/uL Hgb 14.9 (11.4-16.0) gm/dL Hct 46.6 H (34.0-46.0) % MCV 89.7 D (80.0-100.0) fL MCH 28.6 (25.0-35.0) pg MCHC 31.9 (31.0-37.0) g/dL RDW 14.9 (11.5-15.5) % Plt Count 337 (150-450) k/uL MPV 8.3 Neutrophils % 86 % Lymphocytes % 8 % Monocytes % 4 % Eosinophils % 1 % Basophils % 0 % Neutrophils # 17.0 H (1.3-7.7) k/uL Lymphocytes # 1.5 (1.0-4.8) k/uL Monocytes # 0.8 (0-1.0) k/uL Eosinophils # 0.1 (0-0.7) k/uL Basophils # 0.1 (0-0.2) k/uL Hypochromasia Moderate PT 10.6 (10.0-12.5) sec INR 0.9 (<1.2) APTT 22.6 (22.0-30.0) sec Sodium 141 (137-145) mmol/L Potassium 2.7 L* (3.5-5.1) mmol/L Chloride 102 (98-107) mmol/L Carbon Dioxide 27 (22-30) mmol/L Anion Gap 12 mmol/L BUN 19 H (7-17) mg/dL Creatinine 0.77 (0.52-1.04) mg/dL Est GFR (CKD-EPI)AfAm 89 (>60 ml/min/1.73 sqM) Est GFR (CKD-EPI)NonAf 77 (>60 ml/min/1.73 sqM) Glucose 127 H (74-99) mg/dL Plasma Lactic Acid [place]un[place] (0.7-2.0) mmol/L Calcium 10.0 (8.4-10.2) mg/dL Magnesium 1.4 L (1.6-2.3) mg/dL Total Bilirubin 0.9 (0.2-1.3) mg/dL AST 22 (14-36) U/L ALT 14 (4-34) U/L Alkaline Phosphatase 83 (38-126) U/L Troponin I (0.000-0.034) ng/mL NT-Pro-B Natriuret Pep 9940 pg/mL Total Protein 7.4 (6.3-8.2) g/dL Albumin 4.5 (3.5-5.0) g/dL Influenza Type A (PCR) (Not Detectd) Influenza Type B (PCR) (Not Detectd) RSV (PCR) (Not Detectd) SARS-CoV-2 (PCR) (Not Detectd) 10/24/24 10/24/24 10/24/24 Range/Units 08:50 08:50 08:59 WBC (3.8-10.6) k/uL RBC (3.80-5.40) m/uL Hgb (11.4-16.0) gm/dL Hct (34.0-46.0) % MCV (80.0-100.0) fL MCH (25.0-35.0) pg MCHC (31.0-37.0) g/dL RDW (11.5-15.5) % Plt Count (150-450) k/uL MPV Neutrophils % % Lymphocytes % % Monocytes % % Eosinophils % % Basophils % % Neutrophils # (1.3-7.7) k/uL Lymphocytes # (1.0-4.8) k/uL Monocytes # (0-1.0) k/uL Eosinophils # (0-0.7) k/uL Basophils # (0-0.2) k/uL Hypochromasia PT (10.0-12.5) sec INR (<1.2) APTT (22.0-30.0) sec Sodium (137-145) mmol/L Potassium (3.5-5.1) mmol/L Chloride (98-107) mmol/L Carbon Dioxide (22-30) mmol/L Anion Gap mmol/L BUN (7-17) mg/dL Creatinine (0.52-1.04) mg/dL Est GFR (CKD-EPI)AfAm (>60 ml/min/1.73 sqM) Est GFR (CKD-EPI)NonAf (>60 ml/min/1.73 sqM) Glucose (74-99) mg/dL Plasma Lactic Acid [place] 1.9 (0.7-2.0) mmol/L Calcium (8.4-10.2) mg/dL Magnesium (1.6-2.3) mg/dL Total Bilirubin (0.2-1.3) mg/dL AST (14-36) U/L ALT (4-34) U/L Alkaline Phosphatase (38-126) U/L Troponin I 0.062 H* (0.000-0.034) ng/mL NT-Pro-B Natriuret Pep pg/mL Total Protein (6.3-8.2) g/dL Albumin (3.5-5.0) g/dL Influenza Type A (PCR) Not Detected (Not Detectd) Influenza Type B (PCR) Not Detected (Not Detectd) RSV (PCR) Not Detected (Not Detectd) SARS-CoV-2 (PCR) Not Detected (Not Detectd) Disposition Clinical Impression: NSTEMI (non-ST elevated myocardial infarction), Acute pulmonary edema, Acute exacerbation of chronic obstructive pulmonary disease, Acute respiratory failure, Hypoxia, Hypomagnesemia, Hypokalemia Disposition: ADMITTED IP TO THIS HOSP Is patient prescribed a controlled substance at d/c from ED?: No Time of Disposition: 10:12 Decision to Admit Reason: Admit from EC Decision Date: 10/24/24 Decision Time: 10:12
[2024-10-24] MEDS ORDERED: NALOXONE 0.4 MG/ML 1 ML VIAL IV PRN (10:24)
[2024-10-24] MEDS: POTASSIUM CHLORIDE 20 MEQ in WATER FOR INJECTION 1 100ML.BAG IVPB STA (10:27)
[2024-10-24] MEDS: POTASSIUM CHLORIDE ER 20 MEQ TAB.ER PO STA (10:27)
[2024-10-24] MEDS: methylPREDNISolone SOD SUCCI 125 MG/2 ML VIAL IV STA (10:27)
[2024-10-24] MEDS: MAGNESIUM SULFATE-D5W PMX 1 GM in DEXTROSE/WATER 1 100ML.BAG IVPB SCH (10:28)
[2024-10-24] MEDS ORDERED: amLODIPine 2.5 MG TAB PO PRN (11:29)
--- NOTE | 2024-10-24 11:35 | P.HPIM ---
History of Present Illness H&P Date: 10/24/24 Patient is a 74-year-old female with past medical history of chronic hypoxic respiratory failure secondary COPD on home oxygen 4 L, severe pulmonary hypertension, CAD s/p PCI 08/2024 mid to LAD 30 to 40% stenosis, 40% OM1, 50% distal RCA stenosis, elevated right-sided filling pressure infrarenal AAA 6 cm awaiting repair, HTN, HLD, former smoker with more than 15-hona-wner smoking history. She presented to the ER on 10/24 for worsening shortness of breath and low oxygen readings, increasing oxygen demands, symptoms have been going on for the past 1 week. She denies any associated fevers, chills, sick contacts, chest pain, discomfort, abdominal pain, changes in bowel habits, dysuria, weight changes, lower extremity edema, orthopnea, PND, denied cough, dizziness, lightheadedness. She is compliant with her medications. She drinks around 48 ounces of water a day and 24 ounces of regular Pepsi on top of that, no diet changes, no travels. She is usually able to perform her ADLs without being out of breath such as light cooking, walking around her apartment. Lately noticed that even making 10 steps with take her breath away. Of note, patient was discharged on 09/21/2024 after being treated for acute on chronic hypoxic respiratory failure secondary to COPD exacerbation, before that was admitted for COPD exacerbation due to RSV. Last TTE July 2024 EF of 55%, severe right ventricular dilation, mild to moderate right ventricular hypokinesis, pulmonary hypertension with RVSP 67, On arrival afebrile, tachycardic in 100s, RR 18, BP 127/75, was placed on 8 L nasal cannula, satting at 88%. Lab work significant for leukocytosis 19.7, chronic, patient is on steroids at home, last WBC 18.0 a month ago. Hemoglobin normal and stable, platelet count normal, sodium 141, potassium 2.7, bicarb 27, anion gap 12, creatinine 0.7, GFR 77, blood glucose 127, magnesium 1.4, AST and ALT normal, troponin elevated 0.0 62, BNP 9940, Cepheid negative. Presented for worsening shortness of breath. Chest x-ray without signs of pulmonary vascular congestion, no pleural effusions, reviewed personally Patient will be admitted for further management of acute on chronic hypoxic respiratory failure secondary to COPD exacerbation pulmonology consulted. Cardiology consulted by ER Pertinent positives and negatives as discussed in HPI, a complete review of systems was performed and all other systems are negative. Patient seen and examined at bedside. Vital signs reviewed General: nontoxic, no distress, appears at stated age, wearing 8 L nasal oxygen. Derm: warm, dry Head: atraumatic, normocephalic, symmetric Eyes: EOMI, no lid lag, anicteric sclera, pupils equal round reactive to light ENT: Nose and ears atraumatic Neck: No thyromegaly, supple Mouth: no lip lesion, mucus membranes moist Cardiovascular: S1S2 reg, no murmur, no edema Lungs: Diffuse bilateral end expiratory wheezing, no rhonchi, no rales, no wheeze, no accessory muscle use Abdominal: soft, nontender to palpation, no guarding, no appreciable organomegaly Ext: no gross muscle atrophy, muscle strength muscle strength 5 out of 5 in all 4 extremities, no contractures Neuro: CN II-XII grossly intact Psych: Alert, oriented, appropriate affect Assessment/Plan: Acute on chronic hypoxic respiratory failure secondary to COPD exacerbation HFpEF, possible mild exacerbation Severe pulmonary hypertension -Pulmonology consulted, appreciate recommendations -Continue with Solu-Medrol 60 every 8 hours -Trelegy Ellipta 200/62/25 1 puff daily, DuoNebs nebulization every 4 hours -Cardiology consulted by ER for elevated BNP -Patient recently had TTE, no repeat study needed at this time -Monitor pulse ox, telemetry -Titrate oxygen as tolerated -Procalcitonin ordered and pending -Will double home Lasix 20 mg p.o. daily to 40 mg p.o. daily as patient has been consuming higher amounts of fluids recently, BNP is elevated, although x-ray did not show signs of vascular congestion, she does not have lower extremity edema, JVD, crackles -Monitor I's and O's, daily weights Hypomagnesemia Hypokalemia -Electrolytes replaced 2 g of magnesium, 40 mEq of potassium, monitor BMP with electrolytes CAD Carotid stenosis Infrarenal AAA -Patient denies having any complaints including abdominal pain, back pain, or experiencing any numbness/tingling/weakness in her extremities. She reports that she has to undergo further evaluation for repair and is scheduled to follow-up outpatient with Dr. Fontana to further discuss. -Continue home aspirin 81, atorvastatin 40 Hypertension Hyperlipidemia -Continue home amlodipine 2.5 daily, atorvastatin 40 daily Anxiety and depression -Continue Zoloft 50 mg daily The patient is admitted with an anticipated [greater] than 2 midnight stay as [inpatient/observation] status for evaluation of acute on chronic hypoxic respiratory failure secondary COPD exacerbation and mild HFpEF exacerbation CODE STATUS: Full code DVT prophylaxis: Subcu heparin Anticipated discharge date: TBD Anticipated discharge place: [facility] A total of 40 minutes was spent on the care of this complex patient more than 50% of the time was spent in counseling and care coordination. Past Medical History Past Medical History: COPD, Hyperlipidemia, Hypertension, Respiratory Disorder Additional Past Medical History / Comment(s): Aortic aneurysm. Pulmonary Hypertension History of Any Multi-Drug Resistant Organisms: None Reported Past Surgical History: Breast Surgery, Hysterectomy Additional Past Surgical History / Comment(s): Knee replacement. Wrist surgery. Cataract surgery Past Anesthesia/Blood Transfusion Reactions: No Reported Reaction Past Psychological History: Depression Smoking Status: Former smoker Past Alcohol Use History: None Reported Past Drug Use History: None Reported - Past Family History Mother Family Medical History: Cancer, Diabetes Mellitus Additional Family Medical History / Comment(s): from lung cancer Father Additional Family Medical History / Comment(s): from brain aneurysm Medications and Allergies Home Medications Medication Instructions Recorded Confirmed Type Aspirin EC [Ecotrin Low Dose] 81 mg PO DAILY 08/06/24 09/21/24 History Atorvastatin [Lipitor] 40 mg PO DAILY 08/06/24 09/21/24 History Cetirizine HCl [Zyrtec] 10 mg PO DAILY 08/06/24 09/21/24 History Dicyclomine [Bentyl] 10 mg PO TID 08/06/24 09/21/24 History Ergocalciferol [Vitamin D2 (1250 1,250 mcg PO MO 08/06/24 09/21/24 History Mcg = 75135 Iu)] Fluticasone/Umeclidin/Vilanter 1 puff INHALATION RT-DAILY 08/06/24 09/21/24 History [Trelegy Ellipta 200-62.5-25] Furosemide [Lasix] 20 mg PO DAILY 08/06/24 09/21/24 History Ipratropium-Albuterol Nebulize 3 ml INHALATION RT-QID PRN 08/06/24 09/21/24 History [Duoneb 0.5 mg-3 mg/3 ml Soln] Ipratropium/Albuter 20-100Mcg 1 puff INHALATION RT-QID 08/06/24 09/21/24 History [Combivent Respimat 20-100Mcg Inhaler] [place] 20mg 20 mg PO DAILY 08/06/24 09/21/24 History Sertraline [Zoloft] 50 mg PO DAILY 08/06/24 09/21/24 History amLODIPine [Norvasc] 2.5 mg PO DAILY PRN 08/06/24 09/21/24 History Acetaminophen Tab [Tylenol] 650 mg PO Q4HR PRN tab 08/13/24 09/21/24 Rx Pantoprazole [Protonix] 40 mg PO AC-BRKFST #30 tab 08/13/24 09/21/24 Rx Sildenafil [Revatio] 20 mg PO TID #90 tab 08/13/24 09/21/24 Rx guaiFENesin [Mucinex] 1,200 mg PO BID #30 tab 08/13/24 09/21/24 Rx predniSONE 5 mg PO Q48H 09/21/24 09/21/24 History Metoprolol Succinate (ER) [Toprol 12.5 mg PO DAILY #60 tab 09/25/24 Rx XL] predniSONE 10 mg PO Q48H #90 tab 09/25/24 Rx Allergies Allergy/AdvReac Type Severity Reaction Status Date / Time levofloxacin [From Levaquin] Allergy Unknown Verified 09/21/24 15:11 tetracycline Allergy Unknown Verified 09/21/24 15:11 Physical Exam Vitals: Vital Signs Temp Pulse Resp BP Pulse Ox 10/24/24 09:33 94 22 113/86 88 L 10/24/24 08:36 22 10/24/24 08:33 97.6 F 100 18 127/75 84 L Intake and Output 10/23/24 10/24/24 10/24/24 22:59 06:59 14:59 Other: Weight 58.967 kg Results CBC & Chem 7: 10/24/24 08:50 10/24/24 08:50 Labs: Abnormal Lab Results - Last 24 Hours (Table) 03/30/25 03/30/25 03/30/25 Range/Units 08:50 08:50 08:50 WBC 19.7 H (3.8-10.6) k/uL Hct 46.6 H (34.0-46.0) % Neutrophils # 17.0 H (1.3-7.7) k/uL Potassium 2.7 L* (3.5-5.1) mmol/L BUN 19 H (7-17) mg/dL Glucose 127 H (74-99) mg/dL Magnesium 1.4 L (1.6-2.3) mg/dL Troponin I 0.062 H* (0.000-0.034) ng/mL
[2024-10-24] MEDS ORDERED: IPRATROPIUM-ALBUTEROL 3 ML NEB INHALATION SCH (12:00)
[2024-10-24] MEDS: ALBUTEROL NEBULIZED 2.5 MG/3 ML INHALATION SCH (12:05)
[2024-10-24] MEDS: SILDENAFIL 20 MG TAB PO SCH (17:25)
[2024-10-24] MEDS: SYMBICORT 160-4.5 MCG INHALER INHALATION SCH (19:57)
[2024-10-24] MEDS: guaiFENesin 600 MG TABLET.ER PO SCH (21:21)
[2024-10-25 07:56] LABS: Basophils % (A) 0 %; Eosinophils % (A) 0 %; HCT 42.2 % (34.0-46.0); HGB 13.4 gm/dL (11.4-16.0); Hypochromasia Marked; Lymphocytes # (A) 1.3 k/uL (1.0-4.8); Lymphocytes % (A) 9 %; MCHC 31.7 g/dL (31.0-37.0); MCV 91.5 fL (80.0-100.0); Mean Platelet Volume 8.4; Monocytes # (A) 0.7 k/uL (0-1.0); Monocytes % (A) 5 %; Neutrophils # (A) 11.8 k/uL (1.3-7.7); Neutrophils % (A) 84 %; Platelet Count 309 k/uL (150-450); RBC 4.61 m/uL (3.80-5.40); RDW 14.9 % (11.5-15.5)
[2024-10-25 08:13] LABS: African American GFR (CKD) >90 (>60 ml/min/1.73 sqM); Anion Gap 9 mmol/L; Blood Urea Nitrogen 18 mg/dL (7-17); Calcium 9.5 mg/dL (8.4-10.2); Carbon Dioxide 27 mmol/L (22-30); Chloride 102 mmol/L (98-107); Glucose 123 mg/dL (74-99); Magnesium 1.9 mg/dL (1.6-2.3); Non-African American GFR(CKD) 85 (>60 ml/min/1.73 sqM); Potassium 3.6 mmol/L (3.5-5.1); Sodium 138 mmol/L (137-145)
[2024-10-25] MEDS: TIOTROPIUM 2.5 MCG INHALER INHALATION SCH (08:23)
[2024-10-25] MEDS: ATORVASTATIN 40 MG TAB PO SCH (08:54)
[2024-10-25] MEDS: SERTRALINE 50 MG TAB PO SCH (08:54)
[2024-10-25] MEDS: ASPIRIN 81 MG PO SCH (08:54)
[2024-10-25] MEDS: PANTOPRAZOLE 40 MG TABLET PO SCH (08:54)
[2024-10-25] MEDS: methylPREDNISolone SOD SUCCI 40 MG/ML 1 ML VIAL IV SCH (08:55)
[2024-10-25] MEDS: POTASSIUM CHLORIDE ER 20 MEQ TAB.ER PO SCH (08:55)
[2024-10-25] MEDS: FUROSEMIDE 40 MG TAB PO SCH (08:55)
[2024-10-25] MEDS ORDERED: IPRATROPIUM-ALBUTEROL 3 ML NEB INHALATION PRN (11:00)
[2024-10-25] MEDS: IPRATROPIUM-ALBUTEROL 3 ML NEB INHALATION SCH (12:02)
--- NOTE | 2024-10-25 13:09 | P.PN ---
Subjective Progress Note Date: 10/25/24 74-year-old female with past medical history of chronic hypoxic respiratory failure secondary COPD on home oxygen 4 L, severe pulmonary hypertension, CAD s/p PCI 08/2024 mid to LAD 30 to 40% stenosis, 40% OM1, 50% distal RCA stenosis, elevated right-sided filling pressure infrarenal AAA 6 cm awaiting repair, HTN, HLD, former smoker with more than [id number] smoking history. She presented to the ER on 10/24 for worsening shortness of breath and low oxygen readings, increasing oxygen demands, symptoms have been going on for the past 1 week. She denies any associated fevers, chills, sick contacts, chest pain, discomfort, abdominal pain, changes in bowel habits, dysuria, weight changes, lower extremity edema, orthopnea, PND, denied cough, dizziness, lightheadedness. She is compliant with her medications. She drinks around 48 ounces of water a day and 24 ounces of regular Pepsi on top of that, no diet changes, no travels. She is usually able to perform her ADLs without being out of breath such as light cooking, walking around her apartment. Lately noticed that even making 10 steps with take her breath away. Of note, patient was discharged on 09/21/2024 after being treated for acute on chronic hypoxic respiratory failure secondary to COPD exacerbation, before that was admitted for COPD exacerbation due to RSV. Last TTE July 2024 EF of 55%, severe right ventricular dilation, mild to moderate right ventricular hypokinesis, pulmonary hypertension with RVSP 67, On arrival afebrile, tachycardic in 100s, RR 18, BP 127/75, was placed on 8 L nasal cannula, satting at 88%. Lab work significant for leukocytosis 19.7, chronic, patient is on steroids at home, last WBC 18.0 a month ago. Hemoglobin normal and stable, platelet count normal, sodium 141, potassium 2.7, bicarb 27, anion gap 12, creatinine 0.7, GFR 77, blood glucose 127, magnesium 1.4, AST and ALT normal, troponin elevated 0.0 62, BNP 9940, Cepheid negative. Presented for worsening shortness of breath. Chest x-ray without signs of pulmonary vascular congestion, no pleural effusions, reviewed personally Patient will be admitted for further management of acute on chronic hypoxic respiratory failure secondary to COPD exacerbation pulmonology consulted. Cardiology consulted by ER Pertinent positives and negatives as discussed in HPI, a complete review of systems was performed and all other systems are negative. 10/25 - She is seen and examined at bedside this morning, still in the ED. states that she is feeling well, and has no acute complaints at this time. It is noted that while talking on the phone her saturations dropped to the low 80%s, which does cause he required increase in her oxygen via nasal cannula. She states that she is feeling as though she is breathing pretty well, comparable to how it is at home. She does note that prior to arrival she was noticing a decreased exercise tolerance prior to becoming short of breath, and has not tested that since being here, however feels comfortable while resting in the bed. REVIEW OF SYSTEMS: Pertinent positives and negatives noted in HPI. Physical Exam: General: nontoxic, no distress, appears at stated age, wearing 5 L nasal cannula Derm: warm, dry, intact Head: atraumatic, normocephalic, symmetric Eyes: EOMI, anicteric sclera Mouth: no lip lesion, mucus membranes moist Cardiovascular: S1 S2 reg, no murmur, rubs, or gallops Lungs: Rales noted in the bilateral lower lobes Abdominal: soft, non-tender to palpataion, no appreciable organomegaly Extremities: no gross muscle atrophy, no edema, no contractures Neuro: Alert, Oriented, CNII-XII grossly intact, gait normal Psych: well appearing, appropriate affect Data Received Today: Labs: WBCs 14.0, hemoglobin 13.4, hematocrit 42.2, platelet 309; sodium 138, potassium 3.6, bicarb 27, BUN 18, creatinine 0.72, calcium 9.5 magnesium 1.9 Imagining: No new imaging today Assessment and plan 74-year-old female with past medical history of chronic hypoxic respiratory failure secondary COPD on home oxygen 4 L, severe pulmonary hypertension, CAD s/p PCI 08/2024 mid to LAD 30 to 40% stenosis, 40% OM1, 50% distal RCA stenosis, elevated right-sided filling pressure infrarenal AAA 6 cm awaiting repair, HTN, HLD, former smoker with more than [id number] smoking history. She presented to the ER on 10/24 for worsening shortness of breath and low oxygen readings, increasing oxygen demands, symptoms have been going on for the past 1 week. #Acute on chronic hypoxic respiratory failure secondary to COPD exacerbation #HFpEF, possible mild exacerbation #Severe pulmonary hypertension, likely Group 1 or group 3 -Pulmonology consulted -Continue Solu-Medrol 60 mg every 4 hours -Continue with Symbicort 160-4.5 mcg inhaler 2 puff twice daily and Spiriva Respimat 2.5 mcg 2 puff daily -DuoNeb 4 times daily and every 2 hours as needed -Resume home sildenafil 20 mg 3 times daily -Cardiology consulted for increasing BNP -Recent TTE, no repeat study needed at this time -Continue to monitor pulse oximeter and telemetry -Titrate oxygen as tolerated -Procalcitonin ordered, currently pending -Lasix switched to 40 mg IV daily -Per cardiology, initiated on Aldactone 12.5 mg daily -Strict I's and O's, daily weights -Advise follow-up with pulmonary hypertension specialist #Hypomagnesemia #Hypokalemia -Electrolytes replaced 2 g of magnesium and 40 mEq of potassium -Continue to monitor BMP #CAD #Carotid stenosis #Infrarenal AAA -Patient denies any complaints of abdominal pain, back pain, or experiencing numbness/tingling/weakness in her extremities -Reports she does have further evaluations she needs to undergo for possible repair and has an appointment scheduled with Dr. Fontana to further discuss -Continue home aspirin 81 mg daily and atorvastatin 40 mg daily #Hypertension #Hyperlipidemia -Continue home amlodipine 2.5 mg daily and atorvastatin 40 mg daily #Anxiety and depression -Continue home Zoloft 50 mg daily DVT ppx: Lovenox 4 mg daily -GI PPx: Protonix 40 mg daily Code status: Full code F: None E: Replete as needed N: Heart healthy diet A: Ambulatory Anticipated discharge place: Pending clinical course Anticipated discharge time: Pending clinical course Dictation was produced using [employer] dictation software. please excuse any grammatical, word or spelling errors. Todd Strong MD PGY-1 IM I have seen and evaluated the patient today. Discussed with the resident and agree with the residents finding and plan as documented in the resident's note. Changes highlighted in blue font. Objective - Vital Signs Vital signs: Vital Signs Temp 97.6 F 10/24/24 08:33 Pulse 100 10/25/24 05:04 Resp 18 10/25/24 05:04 BP 117/84 10/25/24 05:04 Pulse Ox 90 L 10/25/24 05:04 FiO2 Intake & Output 10/24/24 10/25/24 10/25/24 18:59 06:59 18:59 Weight 58.967 kg - Labs CBC & Chem 7: 10/25/24 07:07 10/25/24 07:07 Labs: Abnormal Lab Results - Last 24 Hours (Table) 10/24/24 10/24/24 10/24/24 Range/Units 08:50 08:50 08:50 WBC 19.7 H (3.8-10.6) k/uL Hct 46.6 H (34.0-46.0) % Neutrophils # 17.0 H (1.3-7.7) k/uL Potassium 2.7 L* (3.5-5.1) mmol/L BUN 19 H (7-17) mg/dL Glucose 127 H (74-99) mg/dL Magnesium 1.4 L (1.6-2.3) mg/dL Troponin I 0.062 H* (0.000-0.034) ng/mL 10/24/24 10/24/24 10/25/24 Range/Units 11:39 14:39 07:07 WBC 14.0 H (3.8-10.6) k/uL Hct (34.0-46.0) % Neutrophils # 11.8 H (1.3-7.7) k/uL Potassium (3.5-5.1) mmol/L BUN (7-17) mg/dL Glucose (74-99) mg/dL Magnesium (1.6-2.3) mg/dL Troponin I 0.050 H* 0.042 H* (0.000-0.034) ng/mL 10/25/24 Range/Units 07:07 WBC (3.8-10.6) k/uL Hct (34.0-46.0) % Neutrophils # (1.3-7.7) k/uL Potassium (3.5-5.1) mmol/L BUN 18 H (7-17) mg/dL Glucose 123 H (74-99) mg/dL Magnesium (1.6-2.3) mg/dL Troponin I (0.000-0.034) ng/mL
[2024-10-25] MEDS: ENOXAPARIN 40 MG/0.4 ML SYRINGE SQ SCH (14:19)
[2024-10-25] MEDS: methylPREDNISolone SOD SUCCI 125 MG/2 ML VIAL IV SCH (14:19)
--- NOTE | 2024-10-25 16:40 | P.CNPUL ---
History of Present Illness Consult date: 10/25/24 Reason for consult: dyspnea History of present illness: Patient is a 74-year-old female with past medical history significant for COPD. Normally oxygen dependent on, 4 L/min nasal cannula 17/02. Also, takes a daily prednisone 10 mg tablet. Does follow in the pulmonary office with Dr. Colunga. She is maintained on Trelegy Ellipta inhaler daily. Her primary care provider is Dr. Chopra. She also has past medical history significant for pulmonary hypertension, systemic hypertension, AAA, and peripheral vascular disease. Of note, patient recently hospitalized in July, for RSV tracheobronchitis and COPD exacerbation. Recent echocardiogram done during a hospitalization in July, demonstrating preserved left ventricular ejection fraction of 55%, severe RV dilation/dysfunction, pulmonary hypertension with an RVSP of 67, mild mitral regurgitation and moderate tricuspid regurgitation. The patient was hospitalized back in August 2024 for an acute RSV infection and she was discharged home on 09/25/2024 and the patient was supposed to see me back and follow-up in the office. She ended up coming back to the hospital because of worsening shortness of breath. The patient had interval worsening shortness of breath. She is still on oxygen and she is currently at 5 L nasal cannula with a pulse ox of 95%. The patient has no altered mentation. The patient has no chest pain. No significant sputum production. She has been compliant with her outpatient respiratory medication which included Trelegy Ellipta 1 puff a day and albuterol updrafts [id number]. The white cell count is at 14 with a heme of 13.4 and a platelet count of 309. BUN is 18 with a creatinine of 0.7. Sodium is at 138. Troponins were 0.060.05 and 0.04 respectively x 3 and the procalcitonin level is at 0.04. Repeat viral screen was negative. Reviewed the chest x-ray from this current admission and it shows stable COPD with chronic interstitial changes bilaterally and some scarring in the lung bases bilaterally. Chest x-ray findings are essentially unchanged. She is currently on 5 L with a pulse ox of 94%. Review of Systems Constitutional: Reports daytime sleepiness, Reports fatigue Eyes: denies as per HPI, denies blurred vision, denies bulging eye, denies decreased vision, denies diplopia, denies discharge, denies dry eye, denies irritation, denies itching, denies pain, denies photophobia, denies loss of peripheral vision, denies loss of vision, denies tunnel vision/blind spots Ears: deny: decreased hearing, ear discharge, earache, tinnitus Ears, nose, mouth and throat: Reports as per HPI Breasts: absent: as per HPI, change in shape, gynecomastia, masses, nipple discharge, pain, skin changes, swelling Breasts: Reports as per HPI Cardiovascular: Reports decreased exercise tolerance, Reports dyspnea on exertion Respiratory: Reports cough, Reports cough with sputum, Reports dyspnea, Reports home oxygen, Reports respiratory infections, Reports wheezing Gastrointestinal: Reports as per HPI Genitourinary: Reports as per HPI Menstruation: Reports as per HPI Musculoskeletal: Reports as per HPI Musculoskeletal: absent: ankle pain, ankle stiffness, ankle swelling, as per H PI, elbow pain, elbow stiffness, elbow swelling, foot pain, foot stiffness, foot swelling, hand pain, hand stiffness, hand swelling, hip pain, hip stiffness, hip swelling, knee pain, knee stiffness, knee swelling, shoulder pain, shoulder stiffness, shoulder swelling, wrist pain, wrist stiffness, wrist swelling Integumentary: Reports as per HPI Neurological: Reports as per HPI Psychiatric: Reports as per HPI Endocrine: Reports as per HPI Hematologic/Lymphatic: Reports as per HPI Allergic/Immunologic: Reports as per HPI Past Medical History Past Medical History: COPD, Hyperlipidemia, Hypertension, Respiratory Disorder Additional Past Medical History / Comment(s): Aortic aneurysm. Pulmonary Hypertension History of Any Multi-Drug Resistant Organisms: None Reported Past Surgical History: Breast Surgery, Hysterectomy Additional Past Surgical History / Comment(s): Knee replacement. Wrist surgery. Cataract surgery Past Anesthesia/Blood Transfusion Reactions: No Reported Reaction Past Psychological History: Depression Smoking Status: Former smoker Past Alcohol Use History: None Reported Past Drug Use History: None Reported - Past Family History Mother Family Medical History: Cancer, Diabetes Mellitus Additional Family Medical History / Comment(s): from lung cancer Father Additional Family Medical History / Comment(s): from brain aneurysm Medications and Allergies Home Medications Medication Instructions Recorded Confirmed Type Aspirin EC [Ecotrin Low Dose] 81 mg PO DAILY 08/06/24 10/24/24 History Atorvastatin [Lipitor] 40 mg PO DAILY 08/06/24 10/24/24 History Cetirizine HCl [Zyrtec] 10 mg PO DAILY 08/06/24 10/24/24 History Dicyclomine [Bentyl] 10 mg PO TID 08/06/24 10/24/24 History Ergocalciferol [Vitamin D2 (1250 1,250 mcg PO MO 08/06/24 10/24/24 History Mcg = 11823 Iu)] Fluticasone/Umeclidin/Vilanter 1 puff INHALATION RT-DAILY 08/06/24 10/24/24 History [Trelegy Ellipta 200-62.5-25] Furosemide [Lasix] 20 mg PO DAILY 08/06/24 10/24/24 History Ipratropium-Albuterol Nebulize 3 ml INHALATION RT-QID PRN 08/06/24 10/24/24 History [Duoneb 0.5 mg-3 mg/3 ml Soln] Ipratropium/Albuter 20-100Mcg 1 puff INHALATION RT-QID 08/06/24 10/24/24 History [Combivent Respimat 20-100Mcg Inhaler] [place] 20mg 20 mg PO DAILY 08/06/24 10/24/24 History Sertraline [Zoloft] 50 mg PO DAILY 08/06/24 10/24/24 History amLODIPine [Norvasc] 2.5 mg PO DAILY PRN 08/06/24 10/24/24 History Acetaminophen Tab [Tylenol] 650 mg PO Q4HR PRN tab 08/13/24 10/24/24 Rx Pantoprazole [Protonix] 40 mg PO AC-BRKFST #30 tab 08/13/24 10/24/24 Rx Sildenafil [Revatio] 20 mg PO TID #90 tab 08/13/24 10/24/24 Rx guaiFENesin [Mucinex] 1,200 mg PO BID #30 tab 08/13/24 10/24/24 Rx Metoprolol Succinate (ER) [Toprol 12.5 mg PO DAILY #60 tab 09/25/24 10/24/24 Rx XL] Albuterol Sulfate [Ventolin HFA] 2 puff INHALATION RT-Q4H PRN 10/24/24 10/24/24 History predniSONE 10 mg PO DAILY 10/24/24 10/24/24 History Allergies Allergy/AdvReac Type Severity Reaction Status Date / Time levofloxacin [From Levaquin] Allergy Unknown Verified 10/24/24 11:47 tetracycline Allergy Unknown Verified 10/24/24 11:47 Physical Exam Vitals: Vital Signs Temp Pulse Pulse Resp BP BP Pulse Ox 10/25/24 05:04 100 18 117/84 90 L 10/25/24 03:44 92 18 87 L 10/25/24 02:00 82 20 120/87 10/25/24 00:25 90 18 100/70 94 L 10/24/24 22:49 90 18 100/60 95 10/24/24 20:09 101 H 10/24/24 20:02 94 20 121/83 94 L 10/24/24 19:58 96 10/24/24 16:17 99 10/24/24 16:02 97 10/24/24 16:00 89 16 121/83 92 L 10/24/24 12:14 88 10/24/24 12:05 87 10/24/24 09:33 94 22 113/86 88 L 10/24/24 08:36 22 10/24/24 08:33 97.6 F 100 18 127/75 84 L GENERAL EXAM: Alert, pleasant 74-year-old female, sitting up in bed, on 5 L/min nasal cannula, in no acute distress. HEAD: Normocephalic and atraumatic EYES: Normal reaction of pupils, equal size. Nonicteric sclera. No nystagmus. NOSE: Clear with pink turbinates. THROAT: No erythema or exudates. NECK: No masses, no JVD. No carotid bruit with strong palpable pulse bilaterally CHEST: No chest wall deformity. LUNGS: Equal air entry with no crackles, wheeze, rhonchi or dullness. Breath sounds are markedly diminished bilaterally along with scattered rhonchi scattered expiratory wheezes CVS: S1 and S2 normal with no audible murmur, regular rhythm. No extra heart sounds ABDOMEN: No hepatosplenomegaly, active bowel sounds, no guarding or rigidity. SPINE: No scoliosis or deformity SKIN: No rashes CENTRAL NERVOUS SYSTEM: Alert and oriented, cranial nerves II through XII intact, tone is normal in all 4 extremities. EXTREMITIES: There is no peripheral edema, clubbing, or cyanosis. Peripheral pulses are intact. Results - Laboratory Findings CBC and BMP: 10/25/24 07:07 10/25/24 07:07 PT/INR, D-dimer PT 10.6 sec (10.0-12.5) 10/24/24 08:50 INR 0.9 (<1.2) 10/24/24 08:50 Abnormal lab findings: Abnormal Labs 10/24/24 10/24/24 10/24/24 08:50 08:50 08:50 WBC 19.7 H Hct 46.6 H Neutrophils # 17.0 H Potassium 2.7 L* BUN 19 H Glucose 127 H Magnesium 1.4 L Troponin I 0.062 H* 10/24/24 10/24/24 10/25/24 11:39 14:39 07:07 WBC 14.0 H Hct Neutrophils # 11.8 H Potassium BUN Glucose Magnesium Troponin I 0.050 H* 0.042 H* - Diagnostic Findings Chest x-ray: image reviewed Assessment and Plan Plan: Acute on chronic hypoxemic respiratory failure, currently on 5 L/min nasal cannula, chest x-ray which does not show any acute cardiopulmonary process, chronic parenchymal changes noted bilaterally. No focal airspace opacities, pleural effusions, pneumothoraces. Chest x-ray findings from this current admission is essentially showing stable findings with some chronic scarring in lung bases and upper lobe emphysematous changes. Previous CTA of the chest that showed no evidence of any pulmonary embolism. Patient is presenting essentially with an acute CF exacerbation Acute CF exacerbation Acute on chronic hypoxic respiratory failure, currently on 5 L Acute on chronic dyspnea Acute COPD exacerbation and frequent COPD exacerabations for the same and her last admission was in 09/21/24 Chronic oxygen dependence, normally maintained on 4 L/min nasal cannula Elevated troponins, did undergo a right and left heart catheterization yesterday September 23, 2024, to be treated medically, and the patient had a 30 to 40% mid to distal LAD, 40% OM1, 50% distal RCA and small aneurysmal portion of the mid RCA. Patient was offered medical therapy. Pulmonary hypertension, suspect group 3, elevated BroBNP, echocardiogram from 08/07/2024 showed a preserved LV function, nevertheless, the patient had severe pulmonary hypertension. RV was severely dilated and estimated PA pressure was 67. She had also moderate TR. Recent hospitalization for RSV tracheobronchitis on 08/06/24 Infrarenal abdominal aortic aneurysm, 4.7 cm follows with vascular surgery outpatient Systemic hypertension Peripheral vascular disease and carotid artery stenosis Former tobacco smoker Anxiety/depression Plan: Will titrate oxygen flow to maintain oxygen saturation above 90%, currently on 5 L nasal cannula. Continue DuoNeb nebulizer treatments [id number] The patient can utilize Trelegy Ellipta from home. Now that the medication is not available, she will be given a combination of tiotropium and Symbicort as maintenance and albuterol nebulized treatments 4 times a day IV Solu-Medrol 60 mg every 6 hours IV Lasix 40 mg every 24 hours Resume the rest of the home medications Will continue to follow Time with Patient: Greater than 30
--- NOTE | 2024-10-25 17:25 | P.CRDCN ---
History of Present Illness Consult date: 10/25/24 History of present illness: 74-year-old female with PMH of chronic hypoxic respiratory failure secondary to COPD (on 4 L oxygen at home), severe pulmonary hypertension, CAD status post PCI 09/21 LAD 30 to 40% stenosis, 40% OM, 50% distal RCA stenosis, elevated right-sided filling pressure infrarenal AAA 6 cm awaiting repair, hypertension, hyperlipidemia, former smoker with more than [id number] smoking history presents on 10/24 for worsening shortness of breath and low oxygen readings. States the symptoms are going on for the past week. Denies fevers, chills, sick contacts, chest pain, weight changes, lower extremity edema, orthopnea, PND, dizziness, and lightheadedness. States she is compliant with her medications. States she is usually able to perform her ADLs without being out of breath with activity such as leg cooking and walking around her apartment. Reports recently she that she can even take 10 steps without getting out of breath. Of note, patient was discharged on 09/21/2024 after being treated in the hospital for acute on chronic hypoxic respiratory failure secondary to COPD exacerbation. Cardiac history: CAD status post PCI 09/21, infrarenal AAA 6 cm awaiting repair, hypertension, hyperlipidemia Cardiac medications: Norvasc 2.5 mg p.o. daily as needed, metoprolol succinate 12.5 mg p.o. daily, Lasix 20 mg p.o. daily, Lipitor 40 mg p.o. daily, aspirin 81 mg p.o. daily Cardiac imaging: TTE 08/21 shows EF 55%, severe right ventricular dilation, mild to moderate right ventricular hypokinesis, pulmonary hypertension with RVSP 67 Surgical history: Cardiac catheterization 09/24/2024 mid to distal LAD 30 to 40% stenosis, 40% OM1, 50% distal RCA stenosis, elevated right-sided filling pressure Family history: TIA in mother, father had brain aneurysm and paternal grandomoter had AAA. Social history:Former smoker, no alcohol. ROS: Physical exam: General: nontoxic, no distress, appears at stated age, wearing 8 L nasal oxygen. Derm: warm, dry Head: atraumatic, normocephalic, symmetric Eyes: EOMI, no lid lag, anicteric sclera, pupils equal round reactive to light ENT: Nose and ears atraumatic Neck: No thyromegaly, supple Mouth: no lip lesion, mucus membranes moist Cardiovascular: S1S2 reg, no murmur, no edema Lungs: Diffuse bilateral end expiratory wheezing, no rhonchi, no rales, no wheeze, no accessory muscle use Abdominal: soft, nontender to palpation, no guarding, no appreciable organomegaly Ext: no gross muscle atrophy, muscle strength muscle strength 5 out of 5 in all 4 extremities, no contractures Neuro: CN II-XII grossly intact Psych: Alert, oriented, appropriate affect Assessment: Elevated trop now down trending likely due to hypoxia, less likely due to ACS. HFpEF CAD status post PCI Carotid stenosis Infrarenal AAA Hypertension Hyperlipidemia Acute on chronic hypoxic respiratory failure secondary to COPD exacerbation Severe pulmonary hypertension Hypomagnesemia Hypokalemia Plan: -Restart home cardiac medications including metoprolol succinate 12.5 mg p.o. daily -No need to repeat echo as recent one from 2 months ago showed preserved EF -Add Aldactone 12.5 mg daily -Follow-up with the patient Past Medical History Past Medical History: COPD, Hyperlipidemia, Hypertension, Respiratory Disorder Additional Past Medical History / Comment(s): Aortic aneurysm. Pulmonary Hypertension History of Any Multi-Drug Resistant Organisms: None Reported Past Surgical History: Breast Surgery, Hysterectomy Additional Past Surgical History / Comment(s): Knee replacement. Wrist surgery. Cataract surgery Past Anesthesia/Blood Transfusion Reactions: No Reported Reaction Past Psychological History: Depression Smoking Status: Former smoker Past Alcohol Use History: None Reported Past Drug Use History: None Reported - Past Family History Mother Family Medical History: Cancer, Diabetes Mellitus Additional Family Medical History / Comment(s): from lung cancer Father Additional Family Medical History / Comment(s): from brain aneurysm Medications and Allergies Home Medications Medication Instructions Recorded Confirmed Type Aspirin EC [Ecotrin Low Dose] 81 mg PO DAILY 08/06/24 10/24/24 History Atorvastatin [Lipitor] 40 mg PO DAILY 08/06/24 10/24/24 History Cetirizine HCl [Zyrtec] 10 mg PO DAILY 08/06/24 10/24/24 History Dicyclomine [Bentyl] 10 mg PO TID 08/06/24 10/24/24 History Ergocalciferol [Vitamin D2 (1250 1,250 mcg PO MO 08/06/24 10/24/24 History Mcg = [id number] Iu)] Fluticasone/Umeclidin/Vilanter 1 puff INHALATION RT-DAILY 08/06/24 10/24/24 History [Trelegy Ellipta 200-62.5-25] Furosemide [Lasix] 20 mg PO DAILY 08/06/24 10/24/24 History Ipratropium-Albuterol Nebulize 3 ml INHALATION RT-QID PRN 08/06/24 10/24/24 History [Duoneb 0.5 mg-3 mg/3 ml Soln] Ipratropium/Albuter 20-100Mcg 1 puff INHALATION RT-QID 08/06/24 10/24/24 History [Combivent Respimat 20-100Mcg Inhaler] [place] 20mg 20 mg PO DAILY 08/06/24 10/24/24 History Sertraline [Zoloft] 50 mg PO DAILY 08/06/24 10/24/24 History amLODIPine [Norvasc] 2.5 mg PO DAILY PRN 08/06/24 10/24/24 History Acetaminophen Tab [Tylenol] 650 mg PO Q4HR PRN tab 08/13/24 10/24/24 Rx Pantoprazole [Protonix] 40 mg PO AC-BRKFST #30 tab 08/13/24 10/24/24 Rx Sildenafil [Revatio] 20 mg PO TID #90 tab 08/13/24 10/24/24 Rx guaiFENesin [Mucinex] 1,200 mg PO BID #30 tab 08/13/24 10/24/24 Rx Metoprolol Succinate (ER) [Toprol 12.5 mg PO DAILY #60 tab 09/25/24 10/24/24 Rx XL] Albuterol Sulfate [Ventolin HFA] 2 puff INHALATION RT-Q4H PRN 10/24/24 10/24/24 History predniSONE 10 mg PO DAILY 10/24/24 10/24/24 History Allergies Allergy/AdvReac Type Severity Reaction Status Date / Time levofloxacin [From Levaquin] Allergy Unknown Verified 10/24/24 11:47 tetracycline Allergy Unknown Verified 10/24/24 11:47 Physical Exam Vitals: Vital Signs Temp Pulse Pulse Resp BP BP Pulse Ox 10/25/24 05:04 100 18 117/84 90 L 10/25/24 03:44 92 18 87 L 10/25/24 02:00 82 20 120/87 10/25/24 00:25 90 18 100/70 94 L 10/24/24 22:49 90 18 100/60 95 10/24/24 20:09 101 H 10/24/24 20:02 94 20 121/83 94 L 10/24/24 19:58 96 10/24/24 16:17 99 10/24/24 16:02 97 10/24/24 16:00 89 16 121/83 92 L 10/24/24 12:14 88 10/24/24 12:05 87 10/24/24 09:33 94 22 113/86 88 L 10/24/24 08:36 22 10/24/24 08:33 97.6 F 100 18 127/75 84 L Results 10/25/24 07:07 10/25/24 07:07 Cardiac Enzymes 10/24/24 10/24/24 10/24/24 Range/Units 08:50 08:50 11:39 AST 22 (14-36) U/L Troponin I 0.062 H* 0.050 H* (0.000-0.034) ng/mL 10/24/24 Range/Units 14:39 AST (14-36) U/L Troponin I 0.042 H* (0.000-0.034) ng/mL Coagulation 10/24/24 Range/Units 08:50 PT 10.6 (10.0-12.5) sec APTT 22.6 (22.0-30.0) sec CBC 10/24/24 10/25/24 Range/Units 08:50 07:07 WBC 19.7 H 14.0 H (3.8-10.6) k/uL RBC 5.19 4.61 (3.80-5.40) m/uL Hgb 14.9 13.4 (11.4-16.0) gm/dL Hct 46.6 H 42.2 (34.0-46.0) % Plt Count 337 309 (150-450) k/uL Comprehensive Metabolic Panel 10/24/24 10/24/24 Range/Units 08:50 15:41 Sodium 141 (137-145) mmol/L Potassium 2.7 L* 3.5 (3.5-5.1) mmol/L Chloride 102 (98-107) mmol/L Carbon Dioxide 27 (22-30) mmol/L BUN 19 H (7-17) mg/dL Creatinine 0.77 (0.52-1.04) mg/dL Glucose 127 H (74-99) mg/dL Calcium 10.0 (8.4-10.2) mg/dL AST 22 (14-36) U/L ALT 14 (4-34) U/L Alkaline Phosphatase 83 (38-126) U/L Total Protein 7.4 (6.3-8.2) g/dL Albumin 4.5 (3.5-5.0) g/dL Current Medications Generic Name Dose Route Start Last Admin Trade Name Freq PRN Reason Stop Dose Admin Albuterol Sulfate 2.5 mg 10/24/24 12:00 10/25/24 03:47 Albuterol Nebulized 2.5 Mg/3 Ml INHALATION Not Given RT-Q4H [facility] Amlodipine Besylate 2.5 mg 10/24/24 11:29 Amlodipine 2.5 Mg Tab PO DAILY PRN high bp Aspirin 81 mg 10/25/24 09:00 Aspirin 81 Mg PO DAILY [facility] Atorvastatin Calcium 40 mg 10/25/24 09:00 Atorvastatin 40 Mg Tab PO DAILY [facility] Budesonide/Formoterol Fumarate 2 puff 10/24/24 20:00 10/24/24 19:57 Symbicort 160-4.5 Mcg Inhaler INHALATION 2 puff RT-BID ILA Administration Furosemide 40 mg 10/25/24 09:00 Furosemide 40 Mg Tab PO DAILY [facility] Guaifenesin 1,200 mg 10/24/24 21:00 10/24/24 21:21 Guaifenesin 600 Mg Tablet.Er PO 1,200 mg BID ILA Administration Methylprednisolone Sodium Succinate 40 mg 10/25/24 08:00 Methylprednisolone Sod Succi 40 Mg/Ml 1 Ml Vial IV Q8HR ILA Naloxone HCl 0.2 mg 10/24/24 10:24 Naloxone 0.4 Mg/Ml 1 Ml Vial IV Q2M PRN Opioid Reversal Pantoprazole Sodium 40 mg 10/25/24 07:30 Pantoprazole 40 Mg Tablet PO AC-BRKFST [facility] Potassium Chloride 20 meq 10/25/24 09:00 Potassium Chloride Er 20 Meq Tab.Er PO DAILY [facility] Sertraline HCl 50 mg 10/25/24 09:00 Sertraline 50 Mg Tab PO DAILY [facility] Sildenafil Citrate 20 mg 10/24/24 16:00 10/25/24 01:36 Sildenafil 20 Mg Tab PO 20 mg TID [facility] Administration Tiotropium [place] 2 puff 10/25/24 08:00 Tiotropium 2.5 Mcg Inhaler INHALATION RT-DAILY [facility] 10/25/24 07:07 10/24/24 15:41
[2024-10-26 05:54] LABS: Glucose,Whole Blood 140 mg/dL (70-110)
[2024-10-26] MEDS: INSULIN LISPRO (HumaLOG) 100 UNIT/ML 10 mL VL SQ SCH (06:09)
[2024-10-26] MEDS: METOPROLOL SUCCINATE (ER) 25 MG TAB.ER.24H PO SCH (08:19)
[2024-10-26] MEDS: SPIRONOLACTONE 25 MG TAB PO SCH (08:19)
[2024-10-26] MEDS: FUROSEMIDE 10 MG/ML 4 ML VIAL IV SCH (08:20)
[2024-10-26 09:05] LABS: Basophils % (A) 0 %; Eosinophils % (A) 0 %; HCT 46.5 % (34.0-46.0); HGB 14.2 gm/dL (11.4-16.0); Hypochromasia Marked; Lymphocytes # (A) 0.8 k/uL (1.0-4.8); Lymphocytes % (A) 5 %; MCH 28.3 pg (25.0-35.0); MCHC 30.5 g/dL (31.0-37.0); MCV 92.6 fL (80.0-100.0); Mean Platelet Volume 8.2; Monocytes # (A) 0.5 k/uL (0-1.0); Monocytes % (A) 3 %; Neutrophils # (A) 17.3 k/uL (1.3-7.7); Neutrophils % (A) 92 %; Platelet Count 383 k/uL (150-450); RBC 5.02 m/uL (3.80-5.40); RDW 14.9 % (11.5-15.5); WBC 18.7 k/uL (3.8-10.6)
[2024-10-26 09:39] LABS: African American GFR (CKD) 80 (>60 ml/min/1.73 sqM); Anion Gap 15 mmol/L; Blood Urea Nitrogen 21 mg/dL (7-17); Calcium 9.6 mg/dL (8.4-10.2); Carbon Dioxide 19 mmol/L (22-30); Chloride 103 mmol/L (98-107); Glucose 181 mg/dL (74-99); Magnesium 1.7 mg/dL (1.6-2.3); Non-African American GFR(CKD) 69 (>60 ml/min/1.73 sqM); Potassium 3.9 mmol/L (3.5-5.1); Sodium 137 mmol/L (137-145)
--- NOTE | 2024-10-26 10:48 | P.PN ---
Subjective Progress Note Date: 10/26/24 74-year-old female with past medical history of chronic hypoxic respiratory failure secondary COPD on home oxygen 4 L, severe pulmonary hypertension, CAD s/p PCI 08/2024 mid to LAD 30 to 40% stenosis, 40% OM1, 50% distal RCA stenosis, elevated right-sided filling pressure infrarenal AAA 6 cm awaiting repair, HTN, HLD, former smoker with more than [id number] smoking history. She presented to the ER on 10/24 for worsening shortness of breath and low oxygen readings, increasing oxygen demands, symptoms have been going on for the past 1 week. She denies any associated fevers, chills, sick contacts, chest pain, discomfort, abdominal pain, changes in bowel habits, dysuria, weight changes, lower extremity edema, orthopnea, PND, denied cough, dizziness, lightheadedness. She is compliant with her medications. She drinks around 48 ounces of water a day and 24 ounces of regular Pepsi on top of that, no diet changes, no travels. She is usually able to perform her ADLs without being out of breath such as light cooking, walking around her apartment. Lately noticed that even making 10 steps with take her breath away. Of note, patient was discharged on 09/21/2024 after being treated for acute on chronic hypoxic respiratory failure secondary to COPD exacerbation, before that was admitted for COPD exacerbation due to RSV. Last TTE July 2024 EF of 55%, severe right ventricular dilation, mild to moderate right ventricular hypokinesis, pulmonary hypertension with RVSP 67, On arrival afebrile, tachycardic in 100s, RR 18, BP 127/75, was placed on 8 L nasal cannula, satting at 88%. Lab work significant for leukocytosis 19.7, chronic, patient is on steroids at home, last WBC 18.0 a month ago. Hemoglobin normal and stable, platelet count normal, sodium 141, potassium 2.7, bicarb 27, anion gap 12, creatinine 0.7, GFR 77, blood glucose 127, magnesium 1.4, AST and ALT normal, troponin elevated 0.0 62, BNP 9940, Cepheid negative. Presented for worsening shortness of breath. Chest x-ray without signs of pulmonary vascular congestion, no pleural effusions, reviewed personally Patient will be admitted for further management of acute on chronic hypoxic respiratory failure secondary to COPD exacerbation pulmonology consulted. Cardiology consulted by ER Pertinent positives and negatives as discussed in HPI, a complete review of systems was performed and all other systems are negative. 10/25 - She is seen and examined at bedside this morning, still in the ED. states that she is feeling well, and has no acute complaints at this time. It is noted that while talking on the phone her saturations dropped to the low 80%s, which does cause he required increase in her oxygen via nasal cannula. She states that she is feeling as though she is breathing pretty well, comparable to how it is at home. She does note that prior to arrival she was noticing a decreased exercise tolerance prior to becoming short of breath, and has not tested that since being here, however feels comfortable while resting in the bed. 10/26 - She is seen and examined at bedside this morning, now up on the third floor. She continues that she is feeling well, and has no acute complaints this time. She is saturating in the mid-upper 80%'s-low 90%'s while utilizing 5L nasal cannula. When she gets up moves around, this morning getting up to go to the bathroom, she does desaturate into the 60-70%'s, however is able to catch her breath when seated in a chair. REVIEW OF SYSTEMS: Pertinent positives and negatives noted in HPI. Physical Exam: General: nontoxic, no distress, appears at stated age, wearing 5L nasal cannula, in no acute distress Derm: warm, dry, intact Head: atraumatic, normocephalic, symmetric Eyes: EOMI, anicteric sclera Mouth: no lip lesion, mucus membranes moist Cardiovascular: S1 S2 reg, no murmur, rubs, or gallops Lungs: Equal air entry, Rales noted in the bilateral lower lobes Abdominal: soft, non-tender to palpataion, no appreciable organomegaly Extremities: no gross muscle atrophy, no edema, no contractures Neuro: Alert, Oriented, CNII-XII grossly intact, gait normal Psych: well appearing, appropriate affect Data Received Today: Labs: WBCs 18.7, hemoglobin 14.2, hematocrit 46.5, platelet 383; sodium 137, potassium 3.9, bicarb 19, anion gap 15, BUN 21, creatinine 0.85, calcium 9.6, magnesium 1.7 Imagining: No new imaging today Assessment and plan 74-year-old female with past medical history of chronic hypoxic respiratory failure secondary COPD on home oxygen 4 L, severe pulmonary hypertension, CAD s/p PCI 08/2024 mid to LAD 30 to 40% stenosis, 40% OM1, 50% distal RCA stenosis, elevated right-sided filling pressure infrarenal AAA 6 cm awaiting repair, HTN, HLD, former smoker with more than [id number] smoking history. She presented to the ER on 10/24 for worsening shortness of breath and low oxygen readings, increasing oxygen demands, symptoms have been going on for the past 1 week. #Acute on chronic hypoxic respiratory failure secondary to COPD exacerbation #HFpEF, possible mild exacerbation #Severe pulmonary hypertension, likely Group 1 or group 3 -Pulmonology consulted -Continue Solu-Medrol 60 mg every 4 hours -Continue with Symbicort 160-4.5 mcg inhaler 2 puff twice daily and Spiriva Respimat 2.5 mcg 2 puff daily -DuoNeb 4 times daily and every 2 hours as needed -Continue with Lasix 40 mg IV daily, monitor electrolytes -Resume home sildenafil 20 mg 3 times daily -Cardiology consulted for increasing BNP -Recent TTE, no repeat study needed at this time -Continue to monitor pulse oximeter and telemetry -Titrate oxygen as tolerated -Procalcitonin 0.04 -Per cardiology, initiated on Aldactone 12.5 mg daily -Strict I's and O's, daily weights -Advise follow-up with pulmonary hypertension specialist #Hypomagnesemia #Hypokalemia -Electrolytes replaced 2 g of magnesium and 40 mEq of potassium -Continue to monitor BMP #CAD #Carotid stenosis #Infrarenal AAA -Patient denies any complaints of abdominal pain, back pain, or experiencing numbness/tingling/weakness in her extremities -Reports she does have further evaluations she needs to undergo for possible repair and has an appointment scheduled with Dr. Fontana to further discuss -Continue home aspirin 81 mg daily and atorvastatin 40 mg daily #Hypertension #Hyperlipidemia -Continue home amlodipine 2.5 mg daily and atorvastatin 40 mg daily #Anxiety and depression -Continue home Zoloft 50 mg daily #IBS -Continued home dicyclomine -Elicited home medication 10 mg 3 times daily, patient endorses taking to 10 mg tabs in the morning which is effective throughout the entire day -Initiated on 20 mg daily in the morning DVT ppx: Lovenox 40 mg daily GI PPx: Protonix 40 mg daily Code status: Full code F: None E: Replete as needed N: Heart healthy diet A: Ambulatory Anticipated discharge place: Pending clinical course Anticipated discharge time: Pending clinical course Dictation was produced using [employer] dictation software. please excuse any grammatical, word or spelling errors. Todd Strong MD PGY-1 IM I have seen and evaluated the patient today. Discussed with the resident and agree with the residents finding and plan as documented in the resident's note. Changes highlighted in blue font. Objective - Vital Signs Vital signs: Vital Signs Temp 97.7 F 10/26/24 03:38 Pulse 97 10/26/24 03:38 Resp 18 10/26/24 03:38 BP 127/81 10/26/24 03:38 Pulse Ox 96 10/26/24 03:38 FiO2 Intake & Output 10/25/24 10/26/24 10/26/24 18:59 06:59 18:59 Output Total 0 Balance 0 Weight 61.4 kg Output: Urine 0 Other: Voiding Method Toilet # Voids 0 - Labs CBC & Chem 7: 10/26/24 08:47 10/26/24 08:47 Labs: Abnormal Lab Results - Last 24 Hours (Table) 10/25/24 10/25/24 10/26/24 Range/Units 07:07 07:07 05:51 WBC 14.0 H (3.8-10.6) k/uL Neutrophils # 11.8 H (1.3-7.7) k/uL BUN 18 H (7-17) mg/dL Glucose 123 H (74-99) mg/dL POC Glucose (mg/dL) 140 H (70-110) mg/dL
[2024-10-26 11:31] LABS: Glucose,Whole Blood 216 mg/dL (70-110)
[2024-10-26] MEDS: DICYCLOMINE 20 MG TAB PO SCH (11:35)
--- NOTE | 2024-10-26 15:49 | P.PN ---
Subjective Progress Note Date: 10/26/24 Patient is a 74-year-old female with past medical history significant for COPD. Normally oxygen dependent on, 4 L/min nasal cannula 17/02. Also, takes a daily prednisone 10 mg tablet. Does follow in the pulmonary office with Dr. Colunga. She is maintained on Trelegy Ellipta inhaler daily. Her primary care provider is Dr. Chopra. She also has past medical history significant for pulmonary hypertension, systemic hypertension, AAA, and peripheral vascular disease. Of note, patient recently hospitalized in July, for RSV tracheobronchitis and COPD exacerbation. Recent echocardiogram done during a hospitalization in July, demonstrating preserved left ventricular ejection fraction of 55%, severe RV dilation/dysfunction, pulmonary hypertension with an RVSP of 67, mild mitral regurgitation and moderate tricuspid regurgitation. The patient was hospitalized back in August 2024 for an acute RSV infection and she was discharged home on 09/25/2024 and the patient was supposed to see me back and follow-up in the office. She ended up coming back to the hospital because of worsening shortness of breath. The patient had interval worsening shortness of breath. She is still on oxygen and she is currently at 5 L nasal cannula with a pulse ox of 95%. The patient has no altered mentation. The patient has no chest pain. No significant sputum production. She has been compliant with her outpatient respiratory medication which included Trelegy Ellipta 1 puff a day and albuterol updrafts [id number]. The white cell count is at 14 with a heme of 13.4 and a platelet count of 309. BUN is 18 with a creatinine of 0.7. Sodium is at 138. Troponins were 0.060.05 and 0.04 respectively x 3 and the procalcitonin level is at 0.04. Repeat viral screen was negative. Reviewed the chest x-ray from this current admission and it shows stable COPD with chronic interstitial changes bilaterally and some scarring in the lung bases bilaterally. Chest x-ray findings are essentially unchanged. She is currently on 5 L with a pulse ox of 94%. On 10/26/2024, the patient is on 40 of oxygen by nasal cannula with a pulse ox of 88%. She is still easily desaturating with activity. Going back and forth to the bathroom, her pulse ox dropped down to the low 70s. While at rest, she is doing well. Remains bronchospastic and wheezy and she remains on DuoNeb nebulizers on the clock, Symbicort as maintenance and IV Solu-Medrol. Rest of the medications are essentially unchanged. The patient remains on Aldactone 12.5 mg p.o. daily. She is also on Lasix 40 mg IV every 24 hours. Fluid balance has been -1.3 L over the past 24 hours. The white cell count of 18.7, hemoglobin 14 with a platelet count of 383. BUN is 21 with a creatinine of 0.85. Serum bicarb is at 19 and sodium levels at 137. No other significant events overnight. Objective - Vital Signs Vital signs: Vital Signs Temp 98.0 F 10/26/24 11:28 Pulse 103 H 10/26/24 11:28 Resp 18 10/26/24 11:28 BP 111/72 10/26/24 11:28 Pulse Ox 87 L 10/26/24 11:28 FiO2 Intake & Output 10/25/24 10/26/24 10/26/24 18:59 06:59 18:59 Intake Total 10 Output Total 0 500 Balance 0 -490 Weight 61.4 kg Intake: IV 10 Invasive Line 1 10 Output: Urine 0 500 Other: Voiding Method Toilet Toilet # Voids 0 # Bowel Movements 1 - Exam GENERAL EXAM: Alert, pleasant 74-year-old female, sitting up in bed, on 4 to 5 L/min nasal cannula, in no acute distress. HEAD: Normocephalic and atraumatic EYES: Normal reaction of pupils, equal size. Nonicteric sclera. No nystagmus. NOSE: Clear with pink turbinates. THROAT: No erythema or exudates. NECK: No masses, no JVD. No carotid bruit with strong palpable pulse bilaterally CHEST: No chest wall deformity. LUNGS: Equal air entry with no crackles, wheeze, rhonchi or dullness. Breath so unds are markedly diminished bilaterally along with scattered rhonchi scattered expiratory wheezes CVS: S1 and S2 normal with no audible murmur, regular rhythm. No extra heart sounds ABDOMEN: No hepatosplenomegaly, active bowel sounds, no guarding or rigidity. SPINE: No scoliosis or deformity SKIN: No rashes CENTRAL NERVOUS SYSTEM: Alert and oriented, cranial nerves II through XII intact, tone is normal in all 4 extremities. EXTREMITIES: There is no peripheral edema, clubbing, or cyanosis. Peripheral pulses are intact. - Labs CBC & Chem 7: 10/26/24 08:47 10/26/24 08:47 Labs: Abnormal Lab Results - Last 24 Hours (Table) 10/26/24 10/26/24 10/26/24 Range/Units 05:51 08:47 08:47 WBC 18.7 H (3.8-10.6) k/uL Hct 46.5 H (34.0-46.0) % MCHC 30.5 L (31.0-37.0) g/dL Neutrophils # 17.3 H (1.3-7.7) k/uL Lymphocytes # 0.8 L (1.0-4.8) k/uL Carbon Dioxide 19 L (22-30) mmol/L BUN 21 H (7-17) mg/dL Glucose 181 H (74-99) mg/dL POC Glucose (mg/dL) 140 H (70-110) mg/dL 10/26/24 Range/Units 11:30 WBC (3.8-10.6) k/uL Hct (34.0-46.0) % MCHC (31.0-37.0) g/dL Neutrophils # (1.3-7.7) k/uL Lymphocytes # (1.0-4.8) k/uL Carbon Dioxide (22-30) mmol/L BUN (7-17) mg/dL Glucose (74-99) mg/dL POC Glucose (mg/dL) 216 H (70-110) mg/dL Assessment and Plan Plan: Acute on chronic hypoxemic respiratory failure, currently on 5 L/min nasal cannula, chest x-ray which does not show any acute cardiopulmonary process, chronic parenchymal changes noted bilaterally. No focal airspace opacities, pleural effusions, pneumothoraces. Chest x-ray findings from this current admission is essentially showing stable findings with some chronic scarring in lung bases and upper lobe emphysematous changes. Previous CTA of the chest that showed no evidence of any pulmonary embolism. Patient is presenting essentially with an acute CF exacerbation Acute CF exacerbation Acute on chronic hypoxic respiratory failure, currently on 5 L Acute on chronic dyspnea Acute COPD exacerbation and frequent COPD exacerabations for the same and her last admission was in 09/21/24 Chronic oxygen dependence, normally maintained on 4 L/min nasal cannula Elevated troponins, did undergo a right and left heart catheterization yesterday September 23, 2024, to be treated medically, and the patient had a 30 to 40% mid to distal LAD, 40% OM1, 50% distal RCA and small aneurysmal portion of the mid RCA. Patient was offered medical therapy. Pulmonary hypertension, suspect group 3, elevated BroBNP, echocardiogram from 08/07/2024 showed a preserved LV function, nevertheless, the patient had severe pulmonary hypertension. RV was severely dilated and estimated PA pressure was 67. She had also moderate TR. Recent hospitalization for RSV tracheobronchitis on 08/06/24 Infrarenal abdominal aortic aneurysm, 4.7 cm follows with vascular surgery outpatient Systemic hypertension Peripheral vascular disease and carotid artery stenosis Former tobacco smoker Anxiety/depression Plan: Clinically stable Slightly improved compared to yesterday Will titrate oxygen flow to maintain oxygen saturation above 90%, currently on 4 to 5 L nasal cannula. Continue DuoNeb nebulizer treatments [id number] The patient can utilize [employer] Ellipta from home. Now that the medication is not available, she will be given a combination of tiotropium and Symbicort as maintenance and albuterol nebulized treatments 4 times a day IV Solu-Medrol 60 mg every 6 hours IV Lasix 40 mg every 24 hours Continue Aldactone Procardia was added by cardiology regarding her chronic pulm hypertension. The role of this medication and group 3 pulmonary hypertension is clear. The patient reported some mild improvement in functionality while being on this drug. This will be continued. Resume the rest of the home medications Will continue to follow
[2024-10-26 16:40] LABS: Glucose,Whole Blood 171 mg/dL (70-110)
--- NOTE | 2024-10-26 17:05 | P.PN ---
Subjective Progress Note Date: 10/26/24 74-year-old female with PMH of chronic hypoxic respiratory failure secondary to COPD (on 4 L oxygen at home), severe pulmonary hypertension, CAD status post PCI 09/21 LAD 30 to 40% stenosis, 40% OM, 50% distal RCA stenosis, elevated right- sided filling pressure infrarenal AAA 6 cm awaiting repair, hypertension, hyperlipidemia, former smoker with more than [id number] smoking history presents on 10/24 for worsening shortness of breath and low oxygen readings. States the symptoms are going on for the past week. Denies fevers, chills, sick contacts, chest pain, weight changes, lower extremity edema, orthopnea, PND, dizziness, and lightheadedness. States she is compliant with her medications. States she is usually able to perform her ADLs without being out of breath with activity such as leg cooking and walking around her apartment. Reports recently she that she can even take 10 steps without getting out of breath. Of note, patient was discharged on 09/21/2024 after being treated in the hospital for acute on chronic hypoxic respiratory failure secondary to COPD exacerbation. Cardiac history: CAD status postcardiac cath 09/21, infrarenal AAA 6 cm awaiting repair, hypertension, hyperlipidemia Cardiac medications: Norvasc 2.5 mg p.o. daily as needed, metoprolol succinate 12.5 mg p.o. daily, Lasix 20 mg p.o. daily, Lipitor 40 mg p.o. daily, aspirin 81 mg p.o. daily Cardiac imaging: TTE 08/21 shows EF 55%, severe right ventricular dilation, mild to moderate right ventricular hypokinesis, pulmonary hypertension with RVSP 67 Surgical history: Cardiac catheterization 09/24/2024 mid to distal LAD 30 to 40% stenosis, 40% OM1, 50% distal RCA stenosis, elevated right-sided filling pressur e Family history: TIA in mother, father had brain aneurysm and paternal grandomoter had AAA. Social history:Former smoker, no alcohol. 10/26/2024 Patient is on high flow nasal cannula still hypoxic. With minimal activity like going up to the bathroom her pulse ox drops to low 70s. While resting patient is doing well. She is in negative fluid balance of 1.3 L in last 24 hours. Kidney function is stable with creatinine of 0.85. Denies any chest pain chest pressure at this time. Physical exam: General: nontoxic, no distress, appears at stated age, wearing 8 L nasal oxygen. Derm: warm, dry Head: atraumatic, normocephalic, symmetric Eyes: EOMI, no lid lag, anicteric sclera, pupils equal round reactive to light ENT: Nose and ears atraumatic Neck: No thyromegaly, supple Mouth: no lip lesion, mucus membranes moist Cardiovascular: S1S2 reg, no murmur, no edema Lungs: Diffuse bilateral end expiratory wheezing, no rhonchi, no rales, no wheeze, no accessory muscle use Abdominal: soft, nontender to palpation, no guarding, no appreciable organomegaly Ext: no gross muscle atrophy, muscle strength muscle strength 5 out of 5 in all 4 extremities, no contractures Neuro: CN II-XII grossly intact Psych: Alert, oriented, appropriate affect Assessment: Acute on chronic hypoxic respiratory failure multifactorial likely because of mild HFrEF exacerbation, mild COPD exacerbation and severe pulmonary hypertension. Elevated trop now down trending likely due to hypoxia, less likely due to ACS. Acute HFpEF exacerbation CAD status post PCI Severe pulmonary hypertension, precapillary, likely WHO group 3 COPD exacerbation Mild to moderate nonobstructive CAD Carotid stenosis Infrarenal AAA Hypertension Hyperlipidemia Plan: Continue aspirin, Lipitor Metoprolol 12.5 mg daily. Aldactone 12.5 mg daily Amlodipine 2.5 mg for pulmonary hypertension She is on sildenafil 20 mg 3 times daily for pulmonary hypertension. On Lasix 40 mg IV daily. At home she is on Lasix 20 mg daily. Tomorrow consider transitioning to p.o. diuretics Bumex 1 mg daily. Maximize COPD management and repeat PFTs if not done recently. Objective - Vital Signs Vital signs: Vital Signs Temp 97.9 F 10/26/24 15:51 Pulse 88 10/26/24 17:00 Resp 18 10/26/24 15:51 BP 102/67 10/26/24 15:51 Pulse Ox 87 L 10/26/24 15:51 FiO2 Intake & Output 10/25/24 10/26/24 10/26/24 18:59 06:59 18:59 Intake Total 250 Output Total 0 1600 Balance 0 -1350 Weight 61.4 kg Intake: IV 10 Invasive Line 1 10 Oral 240 Output: Urine 0 1600 Other: Voiding Method Toilet Toilet # Voids 0 # Bowel Movements 1 - Labs CBC & Chem 7: 10/26/24 08:47 10/26/24 08:47 Labs: Abnormal Lab Results - Last 24 Hours (Table) 10/26/24 10/26/24 10/26/24 Range/Units 05:51 08:47 08:47 WBC 18.7 H (3.8-10.6) k/uL Hct 46.5 H (34.0-46.0) % MCHC 30.5 L (31.0-37.0) g/dL Neutrophils # 17.3 H (1.3-7.7) k/uL Lymphocytes # 0.8 L (1.0-4.8) k/uL Carbon Dioxide 19 L (22-30) mmol/L BUN 21 H (7-17) mg/dL Glucose 181 H (74-99) mg/dL POC Glucose (mg/dL) 140 H (70-110) mg/dL 10/26/24 10/26/24 Range/Units 11:30 16:38 WBC (3.8-10.6) k/uL Hct (34.0-46.0) % MCHC (31.0-37.0) g/dL Neutrophils # (1.3-7.7) k/uL Lymphocytes # (1.0-4.8) k/uL Carbon Dioxide (22-30) mmol/L BUN (7-17) mg/dL Glucose (74-99) mg/dL POC Glucose (mg/dL) 216 H 171 H (70-110) mg/dL
[2024-10-26] MEDS: amLODIPine 2.5 MG TAB PO SCH (17:44)
[2024-10-26 19:27] LABS: Glucose,Whole Blood 147 mg/dL (70-110)
[2024-10-27] MEDS: ACETAMINOPHEN TAB 325 MG TAB PO PRN (03:49)
[2024-10-27 06:01] LABS: Glucose,Whole Blood 174 mg/dL (70-110)
[2024-10-27 08:37] LABS: Basophils % (A) 0 %; Eosinophils % (A) 0 %; HGB 14.2 gm/dL (11.4-16.0); Hypochromasia Marked; Lymphocytes # (A) 0.6 k/uL (1.0-4.8); Lymphocytes % (A) 3 %; MCHC 30.2 g/dL (31.0-37.0); MCV 92.8 fL (80.0-100.0); Mean Platelet Volume 8.5; Monocytes # (A) 0.4 k/uL (0-1.0); Monocytes % (A) 2 %; Neutrophils # (A) 18.6 k/uL (1.3-7.7); Neutrophils % (A) 94 %; Platelet Count 355 k/uL (150-450); RBC 5.07 m/uL (3.80-5.40); RDW 14.8 % (11.5-15.5); WBC 19.7 k/uL (3.8-10.6)
[2024-10-27 08:45] LABS: African American GFR (CKD) 75 (>60 ml/min/1.73 sqM); Anion Gap 14 mmol/L; Blood Urea Nitrogen 28 mg/dL (7-17); Calcium 9.9 mg/dL (8.4-10.2); Carbon Dioxide 22 mmol/L (22-30); Chloride 101 mmol/L (98-107); Glucose 207 mg/dL (74-99); Magnesium 1.7 mg/dL (1.6-2.3); Non-African American GFR(CKD) 65 (>60 ml/min/1.73 sqM); Potassium 4.2 mmol/L (3.5-5.1); Sodium 137 mmol/L (137-145)
--- NOTE | 2024-10-27 11:23 | P.PN ---
Subjective Progress Note Date: 10/27/24 74-year-old female with past medical history of chronic hypoxic respiratory failure secondary COPD on home oxygen 4 L, severe pulmonary hypertension, CAD s/p PCI 08/2024 mid to LAD 30 to 40% stenosis, 40% OM1, 50% distal RCA stenosis, elevated right-sided filling pressure infrarenal AAA 6 cm awaiting repair, HTN, HLD, former smoker with more than [id number] smoking history. She presented to the ER on 10/24 for worsening shortness of breath and low oxygen readings, increasing oxygen demands, symptoms have been going on for the past 1 week. She denies any associated fevers, chills, sick contacts, chest pain, discomfort, abdominal pain, changes in bowel habits, dysuria, weight changes, lower extremity edema, orthopnea, PND, denied cough, dizziness, lightheadedness. She is compliant with her medications. She drinks around 48 ounces of water a day and 24 ounces of regular Pepsi on top of that, no diet changes, no travels. She is usually able to perform her ADLs without being out of breath such as light cooking, walking around her apartment. Lately noticed that even making 10 steps with take her breath away. Of note, patient was discharged on 09/21/2024 after being treated for acute on chronic hypoxic respiratory failure secondary to COPD exacerbation, before that was admitted for COPD exacerbation due to RSV. Last TTE July 2024 EF of 55%, severe right ventricular dilation, mild to moderate right ventricular hypokinesis, pulmonary hypertension with RVSP 67, On arrival afebrile, tachycardic in 100s, RR 18, BP 127/75, was placed on 8 L nasal cannula, satting at 88%. Lab work significant for leukocytosis 19.7, chronic, patient is on steroids at home, last WBC 18.0 a month ago. Hemoglobin normal and stable, platelet count normal, sodium 141, potassium 2.7, bicarb 27, anion gap 12, creatinine 0.7, GFR 77, blood glucose 127, magnesium 1.4, AST and ALT normal, troponin elevated 0.0 62, BNP 9940, Cepheid negative. Presented for worsening shortness of breath. Chest x-ray without signs of pulmonary vascular congestion, no pleural effusions, reviewed personally Patient will be admitted for further management of acute on chronic hypoxic respiratory failure secondary to COPD exacerbation pulmonology consulted. Cardiology consulted by ER Pertinent positives and negatives as discussed in HPI, a complete review of systems was performed and all other systems are negative. 10/25 - She is seen and examined at bedside this morning, still in the ED. states that she is feeling well, and has no acute complaints at this time. It is noted that while talking on the phone her saturations dropped to the low 80%s, which does cause he required increase in her oxygen via nasal cannula. She states that she is feeling as though she is breathing pretty well, comparable to how it is at home. She does note that prior to arrival she was noticing a decreased exercise tolerance prior to becoming short of breath, and has not tested that since being here, however feels comfortable while resting in the bed. 10/26 - She is seen and examined at bedside this morning, now up on the third floor. She continues that she is feeling well, and has no acute complaints this time. She is saturating in the mid-upper 80%'s-low 90%'s while utilizing 5L nasal cannula. When she gets up moves around, this morning getting up to go to the bathroom, she does desaturate into the 60-70%'s, however is able to catch her breath when seated in a chair. 10/27 - She was seen and examined at bedside this morning. States she continues to feel well will not undergoing any physical exertion, resting comfortably while seated. She has been utilizing 4 L nasal cannula, which is her home oxygen amount, and saturating in the midupper 80%'slow 90%'s. She continues to desaturate into the low 70%'s when getting up to do minimal physical activity. She feels as though that she is feeling "slightly" better than yesterday. REVIEW OF SYSTEMS: Pertinent positives and negatives noted in HPI. Physical Exam: General: nontoxic, no distress, appears at stated age, wearing 5L nasal cannula, in no acute distress Derm: warm, dry, intact Head: atraumatic, normocephalic, symmetric Eyes: EOMI, anicteric sclera Mouth: no lip lesion, mucus membranes moist Cardiovascular: S1 S2 reg, no murmur, rubs, or gallops Lungs: Equal air entry, Rales noted in the bilateral lower lobes Abdominal: soft, non-tender to palpataion, no appreciable organomegaly Extremities: no gross muscle atrophy, no edema, no contractures Neuro: Alert, Oriented, CNII-XII grossly intact, gait normal Psych: well appearing, appropriate affect Data Received Today: Labs: WBCs 19.7, hemoglobin 14.2, hematocrit 47.0, platelet 355; sodium 137, potassium 4.2, bicarb 22, BUN 20, creatinine 0.89, calcium 9.9, magnesium 1.7 Imagining: No new imaging today Assessment and plan 74-year-old female with past medical history of chronic hypoxic respiratory failure secondary COPD on home oxygen 4 L, severe pulmonary hypertension, CAD s/p PCI 08/2024 mid to LAD 30 to 40% stenosis, 40% OM1, 50% distal RCA stenosis, elevated right-sided filling pressure infrarenal AAA 6 cm awaiting repair, HTN, HLD, former smoker with more than 25-zorb-ofra smoking history. She presented to the ER on 10/24 for worsening shortness of breath and low oxygen readings, increasing oxygen demands, symptoms have been going on for the past 1 week. #Acute on chronic hypoxic respiratory failure secondary to COPD exacerbation, improved now on home oxygen of 4 L #HFpEF, possible mild exacerbation #Severe pulmonary hypertension, likely group 3 -Pulmonology consulted -Continue Solu-Medrol 60 mg every 4 hours; plan to transition to oral 40 mg prednisone daily starting tomorrow -Continue with Symbicort 160-4.5 mcg inhaler 2 puff twice daily and Spiriva Respimat 2.5 mcg 2 puff daily -DuoNeb 4 times daily and every 2 hours as needed -Lasix discontinued; initiated on Bumex 1 mg daily starting tomorrow -Resume home sildenafil 20 mg 3 times daily -Titrate oxygen as tolerated -Per cardiology, initiated on Aldactone 12.5 mg daily -Strict I's and O's, daily weights -Advise follow-up with pulmonary hypertension specialist #Hypomagnesemia, resolved #Hypokalemia, resolved -Continue to monitor BMP #CAD #Carotid stenosis #Infrarenal AAA -Patient denies any complaints of abdominal pain, back pain, or experiencing numbness/tingling/weakness in her extremities -Reports she does have further evaluations she needs to undergo for possible repair and has an appointment scheduled with Dr. Fontana to further discuss -Continue home aspirin 81 mg daily and atorvastatin 40 mg daily #Hypertension #Hyperlipidemia -Continue home amlodipine 2.5 mg daily and atorvastatin 40 mg daily #Anxiety and depression -Continue home Zoloft 50 mg daily #IBS -Continued home dicyclomine -Elicited home medication 10 mg 3 times daily, patient endorses taking to 10 mg tabs in the morning which is effective throughout the entire day -Initiated on 20 mg daily in the morning DVT ppx: Lovenox 40 mg daily GI PPx: Protonix 40 mg daily Code status: Full code F: None E: Replete as needed N: Heart healthy diet A: Ambulatory Anticipated discharge place: Pending clinical course Anticipated discharge time: Pending clinical course Dictation was produced using [employer] dictation software. please excuse any grammatical, word or spelling errors. Todd Strong MD PGY-1 IM I have seen and evaluated the patient today. Discussed with the resident and agree with the residents finding and plan as documented in the resident's note. Changes highlighted in blue font. Objective - Vital Signs Vital signs: Vital Signs Temp 97.3 F L 10/27/24 04:24 Pulse 89 10/27/24 04:24 Resp 18 10/27/24 04:24 BP 121/76 10/27/24 04:24 Pulse Ox 90 L 10/27/24 04:24 FiO2 Intake & Output 10/26/24 10/27/24 10/27/24 18:59 06:59 18:59 Intake Total 490 Output Total 1600 900 Balance -1110 -900 Weight 61.7 kg Intake: IV 10 Invasive Line 1 10 Oral 480 Output: Urine 1600 900 Other: Voiding Method Toilet Toilet # Bowel Movements 1 1 - Labs CBC & Chem 7: 10/27/24 08:12 10/27/24 08:12 Labs: Abnormal Lab Results - Last 24 Hours (Table) 10/26/24 10/26/24 10/26/24 Range/Units 08:47 08:47 11:30 WBC 18.7 H (3.8-10.6) k/uL Hct 46.5 H (34.0-46.0) % MCHC 30.5 L (31.0-37.0) g/dL Neutrophils # 17.3 H (1.3-7.7) k/uL Lymphocytes # 0.8 L (1.0-4.8) k/uL Carbon Dioxide 19 L (22-30) mmol/L BUN 21 H (7-17) mg/dL Glucose 181 H (74-99) mg/dL POC Glucose (mg/dL) 216 H (70-110) mg/dL 10/26/24 10/26/24 10/27/24 Range/Units 16:38 19:23 06:00 WBC (3.8-10.6) k/uL Hct (34.0-46.0) % MCHC (31.0-37.0) g/dL Neutrophils # (1.3-7.7) k/uL Lymphocytes # (1.0-4.8) k/uL Carbon Dioxide (22-30) mmol/L BUN (7-17) mg/dL Glucose (74-99) mg/dL POC Glucose (mg/dL) 171 H 147 H 174 H (70-110) mg/dL
[2024-10-27 11:52] LABS: Glucose,Whole Blood 152 mg/dL (70-110)
--- NOTE | 2024-10-27 14:01 | P.PN ---
Subjective HISTORY OF PRESENT ILLNESS: 74-year-old female with PMH of chronic hypoxic respiratory failure secondary to COPD (on 4 L oxygen at home), severe pulmonary hypertension, CAD status post PCI 09/21 LAD 30 to 40% stenosis, 40% OM, 50% distal RCA stenosis, elevated right- sided filling pressure infrarenal AAA 6 cm awaiting repair, hypertension, hyper lipidemia, former smoker with more than [id number] smoking history presents on 10/24 for worsening shortness of breath and low oxygen readings. States the symptoms are going on for the past week. Denies fevers, chills, sick contacts, chest pain, weight changes, lower extremity edema, orthopnea, PND, dizziness, and lightheadedness. States she is compliant with her medications. States she is usually able to perform her ADLs without being out of breath with activity such as leg cooking and walking around her apartment. Reports recently she that she can even take 10 steps without getting out of breath. Of note, patient was discharged on 09/21/2024 after being treated in the hospital for acute on chronic hypoxic respiratory failure secondary to COPD exacerbation. Cardiac history: CAD status postcardiac cath 09/21, infrarenal AAA 6 cm awaiting repair, hypertension, hyperlipidemia Cardiac medications: Norvasc 2.5 mg p.o. daily as needed, metoprolol succinate 12.5 mg p.o. daily, Lasix 20 mg p.o. daily, Lipitor 40 mg p.o. daily, aspirin 81 mg p.o. daily Cardiac imaging: TTE 08/21 shows EF 55%, severe right ventricular dilation, mild to moderate right ventricular hypokinesis, pulmonary hypertension with RVSP 67 Surgical history: Cardiac catheterization 09/24/2024 mid to distal LAD 30 to 40% stenosis, 40% OM1, 50% distal RCA stenosis, elevated right-sided filling pressure Family history: TIA in mother, father had brain aneurysm and paternal grandomoter had AAA. Social history:Former smoker, no alcohol. 10/26/2024 Patient is on high flow nasal cannula still hypoxic. With minimal activity like going up to the bathroom her pulse ox drops to low 70s. While resting patient is doing well. She is in negative fluid balance of 1.3 L in last 24 hours. Kidney function is stable with creatinine of 0.85. Denies any chest pain chest pressure at this time. 10/27/2024 Patient examined this morning at the bedside. Patient currently denies chest pain or pressure. Reports shortness of breath shortness of breath. Vital signs are stable. PHYSICAL EXAM: VITAL SIGNS: Reviewed. GENERAL: Well-developed in no acute distress. NECK: Supple. No JVD or thyromegaly LUNGS: Respirations even and unlabored. Lungs essentially clear to auscultation bilaterally. HEART: Regular rate and rhythm. S1 and S2 heard. EXTREMITIES: Normal range of motion. No clubbing or cyanosis. Peripheral pulses intact. No lower extremity edema ASSESSMENT: Acute on chronic hypoxic respiratory failure multifactorial likely because of mild HFrEF exacerbation, mild COPD exacerbation and severe pulmonary hypertension. Elevated trop now down trending likely due to hypoxia, less likely due to ACS. 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 Fontana We will sign off. Please reconsult if needed. Nurse practitioner note has been reviewed by physician. Signing provider agrees with the documented findings, assessment, and plan of care documented by ORDER ENTRY as a scribe. Objective - Vital Signs Vital signs: Vital Signs Temp 97.3 F L 10/27/24 04:24 Pulse 101 H 10/27/24 13:52 Resp 18 10/27/24 13:54 BP 102/65 10/27/24 08:00 Pulse Ox 93 L 10/27/24 08:00 FiO2 Intake & Output 10/26/24 10/27/24 10/27/24 18:59 06:59 18:59 Intake Total 490 Output Total 9199 699 8602 Balance -1110 -900 -1000 Weight 61.7 kg Intake: IV 10 Invasive Line 1 10 Oral 480 Output: Urine 1804 098 6913 Other: Voiding Method Toilet Toilet # Bowel Movements 1 1 - Labs CBC & Chem 7: 10/27/24 08:12 10/27/24 08:12 Labs: Abnormal Lab Results - Last 24 Hours (Table) 10/26/24 10/26/24 10/27/24 Range/Units 16:38 19:23 06:00 WBC (3.8-10.6) k/uL Hct (34.0-46.0) % MCHC (31.0-37.0) g/dL Neutrophils # (1.3-7.7) k/uL Lymphocytes # (1.0-4.8) k/uL BUN (7-17) mg/dL Glucose (74-99) mg/dL POC Glucose (mg/dL) 171 H 147 H 174 H (70-110) mg/dL 10/27/24 10/27/24 10/27/24 Range/Units 08:12 08:12 11:50 WBC 19.7 H (3.8-10.6) k/uL Hct 47.0 H (34.0-46.0) % MCHC 30.2 L (31.0-37.0) g/dL Neutrophils # 18.6 H (1.3-7.7) k/uL Lymphocytes # 0.6 L (1.0-4.8) k/uL BUN 28 H (7-17) mg/dL Glucose 207 H (74-99) mg/dL POC Glucose (mg/dL) 152 H (70-110) mg/dL
--- NOTE | 2024-10-27 15:49 | P.PN ---
Subjective Progress Note Date: 10/27/24 Patient is a 74-year-old female with past medical history significant for COPD. Normally oxygen dependent on, 4 L/min nasal cannula 17/02. Also, takes a daily prednisone 10 mg tablet. Does follow in the pulmonary office with Dr. Colunga. She is maintained on Trelegy Ellipta inhaler daily. Her primary care provider is Dr. Chopra. She also has past medical history significant for pulmonary hypertension, systemic hypertension, AAA, and peripheral vascular disease. Of note, patient recently hospitalized in July, for RSV tracheobronchitis and COPD exacerbation. Recent echocardiogram done during a hospitalization in July, demonstrating preserved left ventricular ejection fraction of 55%, severe RV dilation/dysfunction, pulmonary hypertension with an RVSP of 67, mild mitral regurgitation and moderate tricuspid regurgitation. The patient was hospitalized back in August 2024 for an acute RSV infection and she was discharged home on 09/25/2024 and the patient was supposed to see me back and follow-up in the office. She ended up coming back to the hospital because of worsening shortness of breath. The patient had interval worsening shortness of breath. She is still on oxygen and she is currently at 5 L nasal cannula with a pulse ox of 95%. The patient has no altered mentation. The patient has no chest pain. No significant sputum production. She has been compliant with her outpatient respiratory medication which included Trelegy Ellipta 1 puff a day and albuterol updrafts [id number]. The white cell count is at 14 with a heme of 13.4 and a platelet count of 309. BUN is 18 with a creatinine of 0.7. Sodium is at 138. Troponins were 0.060.05 and 0.04 respectively x 3 and the procalcitonin level is at 0.04. Repeat viral screen was negative. Reviewed the chest x-ray from this current admission and it shows stable COPD with chronic interstitial changes bilaterally and some scarring in the lung bases bilaterally. Chest x-ray findings are essentially unchanged. She is currently on 5 L with a pulse ox of 94%. On 10/26/2024, the patient is on 40 of oxygen by nasal cannula with a pulse ox of 88%. She is still easily desaturating with activity. Going back and forth to the bathroom, her pulse ox dropped down to the low 70s. While at rest, she is doing well. Remains bronchospastic and wheezy and she remains on DuoNeb nebulizers on the clock, Symbicort as maintenance and IV Solu-Medrol. Rest of the medications are essentially unchanged. The patient remains on Aldactone 12.5 mg p.o. daily. She is also on Lasix 40 mg IV every 24 hours. Fluid balance has been -1.3 L over the past 24 hours. The white cell count of 18.7, hemoglobin 14 with a platelet count of 383. BUN is 21 with a creatinine of 0.85. Serum bicarb is at 19 and sodium levels at 137. No other significant events overnight. On 10/27/2024, the patient is feeling well. Continues to have some exertional dyspnea. No dyspnea at rest. No chest pain. No hemoptysis or pleurisy. She was given a dose of IV Lasix yesterday and the patient's fluid balance is -3 L over the past 24 hours. She is currently on Bumex 1 mg p.o. daily. She is on DuoNeb nebulizers as [id number] and the patient is also on Symbicort and IV Solu-Medrol. Rest of the medication remain unchanged. She is still on Aldactone 12.5 mg p.o. daily. No other new complaints. The white cell count is at 19 with a hemoglobin 14.3 and a platelet count of 355. BUN is 28 with a creatinine of 0.8. Objective - Vital Signs Vital signs: Vital Signs Temp 97.3 F L 10/27/24 04:24 Pulse 100 10/27/24 09:12 Resp 18 10/27/24 08:00 BP 102/65 10/27/24 08:00 Pulse Ox 93 L 10/27/24 08:00 FiO2 Intake & Output 10/26/24 10/27/24 10/27/24 18:59 06:59 18:59 Intake Total 490 Output Total 4299 749 3625 Balance -1110 900 -1000 Weight 61.7 kg Intake: IV 10 Invasive Line 1 10 Oral 480 Output: Urine 3389 687 3725 Other: Voiding Method Toilet Toilet # Bowel Movements 1 1 - Exam GENERAL EXAM: Alert, pleasant 74-year-old female, sitting up in bed, on 4 L/min nasal cannula, in no acute distress. HEAD: Normocephalic and atraumatic EYES: Normal reaction of pupils, equal size. Nonicteric sclera. No nystagmus. NOSE: Clear with pink turbinates. THROAT: No erythema or exudates. NECK: No masses, no JVD. No carotid bruit with strong palpable pulse bilaterally CHEST: No chest wall deformity. LUNGS: Equal air entry with no crackles, wheeze, rhonchi or dullness. Breath sounds are markedly diminished bilaterally along with scattered rhonchi scattered expiratory wheezes CVS: S1 and S2 normal with no audible murmur, regular rhythm. No extra heart sounds ABDOMEN: No hepatosplenomegaly, active bowel sounds, no guarding or rigidity. SPINE: No scoliosis or deformity SKIN: No rashes CENTRAL NERVOUS SYSTEM: Alert and oriented, cranial nerves II through XII intact, tone is normal in all 4 extremities. EXTREMITIES: There is no peripheral edema, clubbing, or cyanosis. Peripheral pulses are intact. - Labs CBC & Chem 7: 10/27/24 08:12 10/27/24 08:12 Labs: Abnormal Lab Results - Last 24 Hours (Table) 10/26/24 10/26/24 10/27/24 Range/Units 16:38 19:23 06:00 WBC (3.8-10.6) k/uL Hct (34.0-46.0) % MCHC (31.0-37.0) g/dL Neutrophils # (1.3-7.7) k/uL Lymphocytes # (1.0-4.8) k/uL BUN (7-17) mg/dL Glucose (74-99) mg/dL POC Glucose (mg/dL) 171 H 147 H 174 H (70-110) mg/dL 10/27/24 10/27/24 10/27/24 Range/Units 08:12 08:12 11:50 WBC 19.7 H (3.8-10.6) k/uL Hct 47.0 H (34.0-46.0) % MCHC 30.2 L (31.0-37.0) g/dL Neutrophils # 18.6 H (1.3-7.7) k/uL Lymphocytes # 0.6 L (1.0-4.8) k/uL BUN 28 H (7-17) mg/dL Glucose 207 H (74-99) mg/dL POC Glucose (mg/dL) 152 H (70-110) mg/dL Assessment and Plan Plan: Acute on chronic hypoxemic respiratory failure, currently on 5 L/min nasal cannula, chest x-ray which does not show any acute cardiopulmonary process, chronic parenchymal changes noted bilaterally. No focal airspace opacities, pleural effusions, pneumothoraces. Chest x-ray findings from this current admission is essentially showing stable findings with some chronic scarring in lung bases and upper lobe emphysematous changes. Previous CTA of the chest that showed no evidence of any pulmonary embolism. Patient is presenting essentially with an acute COPD exacerbation and the patient is improving and currently she is down to 4 L of O2 nasal cannula Acute COPD exacerbation Acute on chronic hypoxic respiratory failure, currently on 4 L of O2 nasal cannu la Acute on chronic dyspnea Acute COPD exacerbation and frequent COPD exacerabations for the same and her last admission was in 09/21/24 Chronic oxygen dependence, normally maintained on 4 L/min nasal cannula Elevated troponins, did undergo a right and left heart catheterization yesterday September 23, 2024, to be treated medically, and the patient had a 30 to 40% mid to distal LAD, 40% OM1, 50% distal RCA and small aneurysmal portion of the mid RCA. Patient was offered medical therapy. Pulmonary hypertension, suspect group 3, elevated BroBNP, echocardiogram from 08/07/2024 showed a preserved LV function, nevertheless, the patient had severe pulmonary hypertension. RV was severely dilated and estimated PA pressure was 67. She had also moderate TR. Recent hospitalization for RSV tracheobronchitis on 08/06/24 Infrarenal abdominal aortic aneurysm, 4.7 cm follows with vascular surgery outpatient Systemic hypertension Peripheral vascular disease and carotid artery stenosis Former tobacco smoker Anxiety/depression Plan: Clinically stable Continues to improve clinically and actually she is also improving Will titrate oxygen flow to maintain oxygen saturation above 90%, currently on 4 to 5 L nasal cannula. Continue DuoNeb nebulizer treatments [id number] The patient can utilize Trelegy Ellipta from home. Now that the medication is not available, she will be given a combination of tiotropium and Symbicort as maintenance and albuterol nebulized treatments 4 times a day IV Solu-Medrol 60 mg every 6 hours Bumex 1 mg p.o. daily Continue Aldactone Sildenafil was added by cardiology regarding her chronic pulm hypertension. The role of this medication and group 3 pulmonary hypertension is clear. The patient reported some mild improvement in functionality while being on this drug. This will be continued. Resume the rest of the home medications Will continue to follow
[2024-10-27 16:41] LABS: Glucose,Whole Blood 209 mg/dL (70-110)
[2024-10-27 19:06] LABS: Glucose,Whole Blood 224 mg/dL (70-110)
[2024-10-28 06:09] LABS: Glucose,Whole Blood 159 mg/dL (70-110)
[2024-10-28] MEDS: predniSONE 20 MG TAB PO SCH (08:47)
[2024-10-28] MEDS: BUMETANIDE 1 MG TAB PO SCH (08:48)
--- NOTE | 2024-10-28 10:57 | P.DS ---
Providers Date of admission: 10/24/24 10:24 Expected date of discharge: 10/28/24 Attending physician: Gabrielle Tineo MD Consults: 10/24/24 10:59 Consult Physician Urgent Consulting Provider: Az Stover Consult Reason/Comments: acute exacerbation copd, hx pulm htn Do you want consulting provider notified?: Yes Primary care physician: Nolan Chopra Hospital Course: Discharge diagnoses; #Acute on chronic hypoxic respiratory failure secondary to COPD exacerbation, improved now on home oxygen of 4 L #HFpEF, possible mild exacerbation #Severe pulmonary hypertension, likely group 3 #Hypomagnesemia, resolved #Hypokalemia, resolved #CAD #Carotid stenosis #Infrarenal AAA #Hypertension #Hyperlipidemia #Anxiety and depression #IBS Hospital course; 74-year-old female with past medical history of chronic hypoxic respiratory failure secondary COPD on home oxygen 4 L, severe pulmonary hypertension, CAD s/p PCI 08/2024 mid to LAD 30 to 40% stenosis, 40% OM1, 50% distal RCA stenosis, elevated right-sided filling pressure infrarenal AAA 6 cm awaiting repair, HTN, HLD, former smoker with more than 62-[id number] smoking history. She presented to the ER on 10/24 for worsening shortness of breath and low oxygen readings, increasing oxygen demands, symptoms have been going on for the past 1 week. During her stay she was evaluated by pulmonology as well as cardiology. She was receiving IV Lasix, which has not been switched to 1 mg Bumex daily, a new prescription which she will be sent home with. Additionally, she was started on Aldactone 12.5 mg daily by cardiology, which she will continue following discharge. She was receiving IV steroids and azithromycin emergency, which have been transitioned to oral steroids. She has returned back to her baseline home oxygen requirements, chest which is continued to improve throughout the duration of her stay. She is excited for discharge today. Physical Exam: General: nontoxic, no distress, appears at stated age, wearing 4L nasal cannula, in no acute distress Derm: warm, dry, intact Head: atraumatic, normocephalic, symmetric Eyes: EOMI, anicteric sclera Mouth: no lip lesion, mucus membranes moist Cardiovascular: S1 S2 reg, no murmur, rubs, or gallops Lungs: Equal air entry, Rales noted in the bilateral lower lobes Abdominal: soft, non-tender to palpataion, no appreciable organomegaly Extremities: no gross muscle atrophy, no edema, no contractures Neuro: Alert, Oriented, CNII-XII grossly intact, gait normal Psych: well appearing, appropriate affect Dictation was produced using [employer] dictation software. please excuse any grammatical, word or spelling errors. Todd Strong MD PGY-1 IM I have seen and evaluated the patient today. Discussed with the resident and agree with the residents finding and plan as documented in the resident's note. Changes highlighted in blue font. This note will serve as progress note for today, will be discharged tomorrow Plan - Discharge Summary Discharge Rx Participant: No New Discharge Prescriptions: New predniSONE 10 mg PO DIRECTED #60 tab Spironolactone [Aldactone] 12.5 mg PO DAILY #30 tab Bumetanide [BUMEX] 1 mg PO DAILY #30 tab Continue [place] 20mg 20 mg PO DAILY Atorvastatin [Lipitor] 40 mg PO DAILY Dicyclomine [Bentyl] 10 mg PO TID Ergocalciferol [Vitamin D2 (1250 Mcg = 58599 Iu)] 1,250 mcg PO MO Ipratropium/Albuter 20-100Mcg [Combivent Respimat 20-100Mcg Inhaler] 1 puff INHALATION RT-QID Sertraline [Zoloft] 50 mg PO DAILY guaiFENesin [Mucinex] 1,200 mg PO BID #30 tab Sildenafil [Revatio] 20 mg PO TID #90 tab Metoprolol Succinate (ER) [Toprol XL] 12.5 mg PO DAILY #60 tab Albuterol Sulfate [Ventolin HFA] 2 puff INHALATION RT-Q4H PRN PRN Reason: Shortness Of Breath amLODIPine [Norvasc] 2.5 mg PO DAILY PRN PRN Reason: high bp Aspirin EC [Ecotrin Low Dose] 81 mg PO DAILY Cetirizine HCl [Zyrtec] 10 mg PO DAILY Fluticasone/Umeclidin/Vilanter [Trelegy Ellipta 200-62.5-25] 1 puff INHALATION RT-DAILY Ipratropium-Albuterol Nebulize [Duoneb 0.5 mg-3 mg/3 ml Soln] 3 ml INHALATION RT-QID PRN PRN Reason: Shortness Of Breath Pantoprazole [Protonix] 40 mg PO AC-BRKFST #30 tab Acetaminophen Tab [Tylenol] 650 mg PO Q4HR PRN tab PRN Reason: Fever And/Or Mild Pain predniSONE 10 mg PO DAILY Discontinued Furosemide [Lasix] 20 mg PO DAILY Discharge Medication List Aspirin EC [Ecotrin Low Dose] 81 mg PO DAILY 08/06/24 [History] Atorvastatin [Lipitor] 40 mg PO DAILY 08/06/24 [History] Cetirizine HCl [Zyrtec] 10 mg PO DAILY 08/06/24 [History] Dicyclomine [Bentyl] 10 mg PO TID 08/06/24 [History] Ergocalciferol [Vitamin D2 (1250 Mcg = 64442 Iu)] 1,250 mcg PO MO 08/06/24 [History] Fluticasone/Umeclidin/Vilanter [Trelegy Ellipta 200-62.5-25] 1 puff INHALATION RT-DAILY 08/06/24 [History] Ipratropium-Albuterol Nebulize [Duoneb 0.5 mg-3 mg/3 ml Soln] 3 ml INHALATION RT-QID PRN 08/06/24 [History] Ipratropium/Albuter 20-100Mcg [Combivent Respimat 20-100Mcg Inhaler] 1 puff INHALATION RT-QID 08/06/24 [History] [place] 20mg 20 mg PO DAILY 08/06/24 [History] Sertraline [Zoloft] 50 mg PO DAILY 08/06/24 [History] amLODIPine [Norvasc] 2.5 mg PO DAILY PRN 08/06/24 [History] Acetaminophen Tab [Tylenol] 650 mg PO Q4HR PRN tab 08/13/24 [Rx] Pantoprazole [Protonix] 40 mg PO AC-BRKFST #30 tab 08/13/24 [Rx] Sildenafil [Revatio] 20 mg PO TID #90 tab 08/13/24 [Rx] guaiFENesin [Mucinex] 1,200 mg PO BID #30 tab 08/13/24 [Rx] Metoprolol Succinate (ER) [Toprol XL] 12.5 mg PO DAILY #60 tab 09/25/24 [Rx] Albuterol Sulfate [Ventolin HFA] 2 puff INHALATION RT-Q4H PRN 10/24/24 [History] predniSONE 10 mg PO DAILY 10/24/24 [History] Bumetanide [BUMEX] 1 mg PO DAILY #30 tab 10/28/24 [Rx] Spironolactone [Aldactone] 12.5 mg PO DAILY #30 tab 10/28/24 [Rx] predniSONE 10 mg PO DIRECTED #60 tab 10/28/24 [Rx] Follow up Appointment(s)/Referral(s): Nolan Chopra MD [Primary Care Provider] - 1-2 days Joey Fontana DO [STAFF PHYSICIAN] - 1 Week (pt has appt scheduled 11/04) Pietro Colunga MD [STAFF PHYSICIAN] - 1 Week Patient Instructions/Handouts: Pulmonary Arterial Hypertension (GEN) Activity/Diet/Wound Care/Special Instructions: Discontinue Lasix she has been taking at home and begin the new prescription of Bumex 1 mg daily. New prescription for Aldactone 12.5 mg daily. Discharged on a steroid taper to take 40 mg for 5 days, followed by 30 mg for 5 days, followed by 20 mg for 5 days. After which you will resume your usually 10 mg daily. Please be sure to follow up regularly with your primary care physician, Dr. Colunga, as well as Dr. Fontana. Discharge Disposition: HOME SELF-CARE
[2024-10-28 11:49] LABS: Glucose,Whole Blood 143 mg/dL (70-110)
[2024-10-28 16:52] LABS: Glucose,Whole Blood 175 mg/dL (70-110)
[2024-10-28 20:07] LABS: Glucose,Whole Blood 175 mg/dL (70-110)
--- NOTE | 2024-10-28 23:01 | P.PN ---
Subjective Progress Note Date: 10/28/24 Patient is a 74-year-old female with past medical history significant for COPD. Normally oxygen dependent on, 4 L/min nasal cannula 17/02. Also, takes a daily prednisone 10 mg tablet. Does follow in the pulmonary office with Dr. Colunga. She is maintained on Trelegy Ellipta inhaler daily. Her primary care provider is Dr. Chopra. She also has past medical history significant for pulmonary hypertension, systemic hypertension, AAA, and peripheral vascular disease. Of note, patient recently hospitalized in July, for RSV tracheobronchitis and COPD exacerbation. Recent echocardiogram done during a hospitalization in July, demonstrating preserved left ventricular ejection fraction of 55%, severe RV dilation/dysfunction, pulmonary hypertension with an RVSP of 67, mild mitral regurgitation and moderate tricuspid regurgitation. The patient was hospitalized back in August 2024 for an acute RSV infection and she was discharged home on 09/25/2024 and the patient was supposed to see me back and follow-up in the office. She ended up coming back to the hospital because of worsening shortness of breath. The patient had interval worsening shortness of breath. She is still on oxygen and she is currently at 5 L nasal cannula with a pulse ox of 95%. The patient has no altered mentation. The patient has no chest pain. No significant sputum production. She has been compliant with her outpatient respiratory medication which included Trelegy Ellipta 1 puff a day and albuterol updrafts [id number]. The white cell count is at 14 with a heme of 13.4 and a platelet count of 309. BUN is 18 with a creatinine of 0.7. Sodium is at 138. Troponins were 0.060.05 and 0.04 respectively x 3 and the procalcitonin level is at 0.04. Repeat viral screen was negative. Reviewed the chest x-ray from this current admission and it shows stable COPD with chronic interstitial changes bilaterally and some scarring in the lung bases bilaterally. Chest x-ray findings are essentially unchanged. She is currently on 5 L with a pulse ox of 94%. On 10/26/2024, the patient is on 40 of oxygen by nasal cannula with a pulse ox of 88%. She is still easily desaturating with activity. Going back and forth to the bathroom, her pulse ox dropped down to the low 70s. While at rest, she is doing well. Remains bronchospastic and wheezy and she remains on DuoNeb nebulizers on the clock, Symbicort as maintenance and IV Solu-Medrol. Rest of the medications are essentially unchanged. The patient remains on Aldactone 12.5 mg p.o. daily. She is also on Lasix 40 mg IV every 24 hours. Fluid balance has been -1.3 L over the past 24 hours. The white cell count of 18.7, hemoglobin 14 with a platelet count of 383. BUN is 21 with a creatinine of 0.85. Serum bicarb is at 19 and sodium levels at 137. No other significant events overnight. On 10/27/2024, the patient is feeling well. Continues to have some exertional dyspnea. No dyspnea at rest. No chest pain. No hemoptysis or pleurisy. She was given a dose of IV Lasix yesterday and the patient's fluid balance is -3 L over the past 24 hours. She is currently on Bumex 1 mg p.o. daily. She is on DuoNeb nebulizers as [id number] and the patient is also on Symbicort and IV Solu-Medrol. Rest of the medication remain unchanged. She is still on Aldactone 12.5 mg p.o. daily. No other new complaints. The white cell count is at 19 with a hemoglobin 14.3 and a platelet count of 355. BUN is 28 with a creatinine of 0.8. On 10/28/2024, the patient is feeling well. Continues to have exertional dyspnea and hypoxemia. Pulse ox on room air oxygen at rest is in order of 91% 40s of oxygen by nasal cannula. No new complaints. Medication remain unchanged. Remains on bronchodilators. Remains on DuoNeb updrafts 4 times a day, Symbicort 2 puffs twice a day and the patient was started on prednisone burst taper. Gloria ins on Bumex 1 mg p.o. daily. No chest pain. No pleurisy. No hemoptysis. She remains in good spirits. Objective - Vital Signs Vital signs: Vital Signs Temp 96.5 F L 10/28/24 08:00 Pulse 113 H 10/28/24 08:00 Resp 16 10/28/24 08:00 BP 110/56 10/28/24 08:00 Pulse Ox 89 L 10/28/24 08:00 FiO2 Intake & Output 10/27/24 10/28/24 10/28/24 18:59 06:59 18:59 Intake Total 120 Output Total 1000 800 Balance -1000 -800 120 Weight 62.1 kg Intake: Oral 120 Output: Urine 1000 800 Other: Voiding Method Toilet Toilet - Exam GENERAL EXAM: Alert, pleasant 74-year-old female, sitting up in bed, on 4 L/min nasal cannula, in no acute distress. HEAD: Normocephalic and atraumatic EYES: Normal reaction of pupils, equal size. Nonicteric sclera. No nystagmus. NOSE: Clear with pink turbinates. THROAT: No erythema or exudates. NECK: No masses, no JVD. No carotid bruit with strong palpable pulse bilaterally CHEST: No chest wall deformity. LUNGS: Equal air entry with no crackles, wheeze, rhonchi or dullness. Breath sounds are markedly diminished bilaterally along with scattered rhonchi scattered expiratory wheezes CVS: S1 and S2 normal with no audible murmur, regular rhythm. No extra heart sounds ABDOMEN: No hepatosplenomegaly, active bowel sounds, no guarding or rigidity. SPINE: No scoliosis or deformity SKIN: No rashes CENTRAL NERVOUS SYSTEM: Alert and oriented, cranial nerves II through XII intact, tone is normal in all 4 extremities. EXTREMITIES: There is no peripheral edema, clubbing, or cyanosis. Peripheral pulses are intact. - Labs CBC & Chem 7: 10/27/24 08:12 10/27/24 08:12 Labs: Abnormal Lab Results - Last 24 Hours (Table) 10/27/24 10/27/24 10/27/24 Range/Units 11:50 16:39 19:03 POC Glucose (mg/dL) 152 H 209 H 224 H (70-110) mg/dL 10/28/24 Range/Units 05:58 POC Glucose (mg/dL) 159 H (70-110) mg/dL Assessment and Plan Plan: Acute on chronic hypoxemic respiratory failure, currently on 5 L/min nasal cannula, chest x-ray which does not show any acute cardiopulmonary process, chronic parenchymal changes noted bilaterally. No focal airspace opacities, pleural effusions, pneumothoraces. Chest x-ray findings from this current admission is essentially showing stable findings with some chronic scarring in lung bases and upper lobe emphysematous changes. Previous CTA of the chest that showed no evidence of any pulmonary embolism. Patient is presenting essentially with an acute COPD exacerbation and the patient is improving and currently she is down to 4 L of O2 nasal cannula Acute COPD exacerbation Acute on chronic hypoxic respiratory failure, currently on 4 L of O2 nasal cannula Acute on chronic dyspnea Acute COPD exacerbation and frequent COPD exacerabations for the same and her last admission was in 09/21/24 Chronic oxygen dependence, normally maintained on 4 L/min nasal cannula Elevated troponins, did undergo a right and left heart catheterization yesterday September 23, 2024, to be treated medically, and the patient had a 30 to 40% mid to distal LAD, 40% OM1, 50% distal RCA and small aneurysmal portion of the mid RCA. Patient was offered medical therapy. Pulmonary hypertension, suspect group 3, elevated BroBNP, echocardiogram from 08/07/2024 showed a preserved LV function, nevertheless, the patient had severe pulmonary hypertension. RV was severely dilated and estimated PA pressure was 67. She had also moderate TR. Recent hospitalization for RSV tracheobronchitis on 08/06/24 Infrarenal abdominal aortic aneurysm, 4.7 cm follows with vascular surgery outpatient Systemic hypertension Peripheral vascular disease and carotid artery stenosis Former tobacco smoker Anxiety/depression Plan: Clinically stable no new complaints Continues to improve clinically and actually she is also improving Will titrate oxygen flow to maintain oxygen saturation above 90%, currently on 4 liters O2 nasal cannula Continue DuoNeb nebulizer treatments [id number] The patient can utilize Trelegy Ellipta from home. Now that the medication is not available, she will be given a combination of tiotropium and Symbicort as maintenance and albuterol nebulized treatments 4 times a day IV Solu-Medrol was discontinued and the patient was started on prednisone burst taper Bumex 1 mg p.o. daily Continue Aldactone Sildenafil was added by cardiology regarding her chronic pulm hypertension. The role of this medication and group 3 pulmonary hypertension is clear. The patient reported some mild improvement in functionality while being on this drug. This will be continued. Resume the rest of the home medications Will continue to follow Possible discharge home in a.m.
[2024-10-29 03:48] VITALS: RESP 20
[2024-10-29 06:06] LABS: Glucose,Whole Blood 104 mg/dL (70-110)
[2024-10-29 10:30] VITALS: TEMP 98.1
[2024-10-29 11:14] LABS: Glucose,Whole Blood 112 mg/dL (70-110)
--- NOTE | 2024-10-29 12:20 | P.DS ---
Providers Date of admission: 10/24/24 10:24 Attending physician: Gabrielle Tineo MD Consults: 10/24/24 10:59 Consult Physician Urgent Consulting Provider: Az Stover Consult Reason/Comments: acute exacerbation copd, hx pulm htn Do you want consulting provider notified?: Yes Primary care physician: Nolan Chopra Hospital Course: Discharge diagnoses; #Acute on chronic hypoxic respiratory failure secondary to COPD exacerbation, improved now on home oxygen of 4 L #HFpEF, possible mild exacerbation #Severe pulmonary hypertension, likely group 3 #Hypomagnesemia, resolved #Hypokalemia, resolved #CAD #Carotid stenosis #Infrarenal AAA #Hypertension #Hyperlipidemia #Anxiety and depression #IBS Hospital course; 74-year-old female with past medical history of chronic hypoxic respiratory failure secondary COPD on home oxygen 4 L, severe pulmonary hypertension, CAD s/p PCI 08/2024 mid to LAD 30 to 40% stenosis, 40% OM1, 50% distal RCA stenosis, elevated right-sided filling pressure infrarenal AAA 6 cm awaiting repair, HTN, HLD, former smoker with more than [id number] smoking history. She presented to the ER on 10/24 for worsening shortness of breath and low oxygen readings, increasing oxygen demands, symptoms have been going on for the past 1 week. During her stay she was evaluated by pulmonology as well as cardiology. She was receiving IV Lasix, which has not been switched to 1 mg Bumex daily, a new prescription which she will be sent home with. Additionally, she was started on Aldactone 12.5 mg daily by cardiology, which she will continue following discharge. She was receiving IV steroids and azithromycin emergency, which have been transitioned to oral steroids. She is maintained at home on 10 mg oral steroid daily. She will be discharged on prednisone taper, 40 mg for 5 days, 30 mg for 5 days, 20 mg for 5 days and then return to her usual 10 mg daily dose. She has returned back to her baseline home oxygen requirements, chest which is continued to improve throughout the duration of her stay. She is excited for discharge today. Physical Exam: General: nontoxic, no distress, appears at stated age, wearing 4L nasal cannula, in no acute distress Derm: warm, dry, intact Head: atraumatic, normocephalic, symmetric Eyes: EOMI, anicteric sclera Mouth: no lip lesion, mucus membranes moist Cardiovascular: S1 S2 reg, no murmur, rubs, or gallops Lungs: Equal air entry, Rales noted in the bilateral lower lobes Abdominal: soft, non-tender to palpataion, no appreciable organomegaly Extremities: no gross muscle atrophy, no edema, no contractures Neuro: Alert, Oriented, CNII-XII grossly intact, gait normal Psych: well appearing, appropriate affect Dictation was produced using [employer] dictation software. please excuse any grammatical, word or spelling errors. Todd Strong MD PGY-1 IM I saw and evaluated the patient during the pierre and critical portions of this encounter, and discussed the case in detail with the resident author of this note, I agree with the Assessment and Plan, and my changes, if any, are highlighted in blue. Plan - Discharge Summary Discharge Rx Participant: No New Discharge Prescriptions: New predniSONE 10 mg PO DIRECTED #60 tab Spironolactone [Aldactone] 12.5 mg PO DAILY #30 tab Bumetanide [BUMEX] 1 mg PO DAILY #30 tab Continue [place] 20mg 20 mg PO DAILY Atorvastatin [Lipitor] 40 mg PO DAILY Dicyclomine [Bentyl] 10 mg PO TID Ergocalciferol [Vitamin D2 (1250 Mcg = 00376 Iu)] 1,250 mcg PO MO Ipratropium/Albuter 20-100Mcg [Combivent Respimat 20-100Mcg Inhaler] 1 puff INHALATION RT-QID Sertraline [Zoloft] 50 mg PO DAILY guaiFENesin [Mucinex] 1,200 mg PO BID #30 tab Sildenafil [Revatio] 20 mg PO TID #90 tab Metoprolol Succinate (ER) [Toprol XL] 12.5 mg PO DAILY #60 tab Albuterol Sulfate [Ventolin HFA] 2 puff INHALATION RT-Q4H PRN PRN Reason: Shortness Of Breath amLODIPine [Norvasc] 2.5 mg PO DAILY PRN PRN Reason: high bp Aspirin EC [Ecotrin Low Dose] 81 mg PO DAILY Cetirizine HCl [Zyrtec] 10 mg PO DAILY Fluticasone/Umeclidin/Vilanter [Trelegy Ellipta 200-62.5-25] 1 puff INHALATION RT-DAILY Ipratropium-Albuterol Nebulize [Duoneb 0.5 mg-3 mg/3 ml Soln] 3 ml INHALATION RT-QID PRN PRN Reason: Shortness Of Breath Pantoprazole [Protonix] 40 mg PO AC-BRKFST #30 tab Acetaminophen Tab [Tylenol] 650 mg PO Q4HR PRN tab PRN Reason: Fever And/Or Mild Pain predniSONE 10 mg PO DAILY Discontinued Furosemide [Lasix] 20 mg PO DAILY Discharge Medication List Aspirin EC [Ecotrin Low Dose] 81 mg PO DAILY 08/06/24 [History] Atorvastatin [Lipitor] 40 mg PO DAILY 08/06/24 [History] Cetirizine HCl [Zyrtec] 10 mg PO DAILY 08/06/24 [History] Dicyclomine [Bentyl] 10 mg PO TID 08/06/24 [History] Ergocalciferol [Vitamin D2 (1250 Mcg = 23615 Iu)] 1,250 mcg PO MO 08/06/24 [History] Fluticasone/Umeclidin/Vilanter [Trelegy Ellipta 200-62.5-25] 1 puff INHALATION RT-DAILY 08/06/24 [History] Ipratropium-Albuterol Nebulize [Duoneb 0.5 mg-3 mg/3 ml Soln] 3 ml INHALATION RT-QID PRN 08/06/24 [History] Ipratropium/Albuter 20-100Mcg [Combivent Respimat 20-100Mcg Inhaler] 1 puff INHALATION RT-QID 08/06/24 [History] [place] 20mg 20 mg PO DAILY 08/06/24 [History] Sertraline [Zoloft] 50 mg PO DAILY 08/06/24 [History] amLODIPine [Norvasc] 2.5 mg PO DAILY PRN 08/06/24 [History] Acetaminophen Tab [Tylenol] 650 mg PO Q4HR PRN tab 08/13/24 [Rx] Pantoprazole [Protonix] 40 mg PO AC-BRKFST #30 tab 08/13/24 [Rx] Sildenafil [Revatio] 20 mg PO TID #90 tab 08/13/24 [Rx] guaiFENesin [Mucinex] 1,200 mg PO BID #30 tab 01/17/25 [Rx] Metoprolol Succinate (ER) [Toprol XL] 12.5 mg PO DAILY #60 tab 09/25/24 [Rx] Albuterol Sulfate [Ventolin HFA] 2 puff INHALATION RT-Q4H PRN 10/24/24 [History] predniSONE 10 mg PO DAILY 10/24/24 [History] Bumetanide [BUMEX] 1 mg PO DAILY #30 tab 10/28/24 [Rx] Spironolactone [Aldactone] 12.5 mg PO DAILY #30 tab 10/28/24 [Rx] predniSONE 10 mg PO DIRECTED #60 tab 10/28/24 [Rx] Follow up Appointment(s)/Referral(s): Nolan Chopra MD [Primary Care Provider] - 1-2 days Joey Fontana DO [STAFF PHYSICIAN] - 1 Week (pt has appt scheduled 11/04) Pietro Colunga MD [STAFF PHYSICIAN] - 1 Week Patient Instructions/Handouts: Pulmonary Arterial Hypertension (GEN) Activity/Diet/Wound Care/Special Instructions: Discontinue Lasix she has been taking at home and begin the new prescription of Bumex 1 mg daily. New prescription for Aldactone 12.5 mg daily. Discharged on a steroid taper to take 40 mg for 5 days, followed by 30 mg for 5 days, followed by 20 mg for 5 days. After which you will resume your usually 10 mg daily. Please be sure to follow up regularly with your primary care physician, Dr. Colunga, as well as Dr. Fontana. Discharge Disposition: HOME SELF-CARE
[2024-10-29 14:02] VITALS: BP 107/69; PULSE 95
[2024-10-29 14:03] VITALS: BMI 21.6
--- NOTE | 2024-10-29 16:35 | P.PN ---
Subjective Progress Note Date: 10/29/24 Patient is a 74-year-old female with past medical history significant for COPD. Normally oxygen dependent on, 4 L/min nasal cannula 17/02. Also, takes a daily prednisone 10 mg tablet. Does follow in the pulmonary office with Dr. Colunga. She is maintained on Trelegy Ellipta inhaler daily. Her primary care provider is Dr. Chopra. She also has past medical history significant for pulmonary hypertension, systemic hypertension, AAA, and peripheral vascular disease. Of note, patient recently hospitalized in July, for RSV tracheobronchitis and COPD exacerbation. Recent echocardiogram done during a hospitalization in July, demonstrating preserved left ventricular ejection fraction of 55%, severe RV dilation/dysfunction, pulmonary hypertension with an RVSP of 67, mild mitral regurgitation and moderate tricuspid regurgitation. The patient was hospitalized back in August 2024 for an acute RSV infection and she was discharged home on 09/25/2024 and the patient was supposed to see me back and follow-up in the office. She ended up coming back to the hospital because of worsening shortness of breath. The patient had interval worsening shortness of breath. She is still on oxygen and she is currently at 5 L nasal cannula with a pulse ox of 95%. The patient has no altered mentation. The patient has no chest pain. No significant sputum production. She has been compliant with her outpatient respiratory medication which included Trelegy Ellipta 1 puff a day and albuterol updrafts [id number]. The white cell count is at 14 with a heme of 13.4 and a platelet count of 309. BUN is 18 with a creatinine of 0.7. Sodium is at 138. Troponins were 0.060.05 and 0.04 respectively x 3 and the procalcitonin level is at 0.04. Repeat viral screen was negative. Reviewed the chest x-ray from this current admission and it shows stable COPD with chronic interstitial changes bilaterally and some scarring in the lung bases bilaterally. Chest x-ray findings are essentially unchanged. She is currently on 5 L with a pulse ox of 94%. On 10/26/2024, the patient is on 40 of oxygen by nasal cannula with a pulse ox of 88%. She is still easily desaturating with activity. Going back and forth to the bathroom, her pulse ox dropped down to the low 70s. While at rest, she is doing well. Remains bronchospastic and wheezy and she remains on DuoNeb nebulizers on the clock, Symbicort as maintenance and IV Solu-Medrol. Rest of the medications are essentially unchanged. The patient remains on Aldactone 12.5 mg p.o. daily. She is also on Lasix 40 mg IV every 24 hours. Fluid balance has been -1.3 L over the past 24 hours. The white cell count of 18.7, hemoglobin 14 with a platelet count of 383. BUN is 21 with a creatinine of 0.85. Serum bicarb is at 19 and sodium levels at 137. No other significant events overnight. On 10/27/2024, the patient is feeling well. Continues to have some exertional dyspnea. No dyspnea at rest. No chest pain. No hemoptysis or pleurisy. She was given a dose of IV Lasix yesterday and the patient's fluid balance is -3 L over the past 24 hours. She is currently on Bumex 1 mg p.o. daily. She is on DuoNeb nebulizers as [id number] and the patient is also on Symbicort and IV Solu-Medrol. Rest of the medication remain unchanged. She is still on Aldactone 12.5 mg p.o. daily. No other new complaints. The white cell count is at 19 with a hemoglobin 14.3 and a platelet count of 355. BUN is 28 with a creatinine of 0.8. On 10/28/2024, the patient is feeling well. Continues to have exertional dyspnea and hypoxemia. Pulse ox on room air oxygen at rest is in order of 91% 40s of oxygen by nasal cannula. No new complaints. Medication remain unchanged. Remains on bronchodilators. Remains on DuoNeb updrafts 4 times a day, Symbicort 2 puffs twice a day and the patient was started on prednisone burst taper. Gloria ins on Bumex 1 mg p.o. daily. No chest pain. No pleurisy. No hemoptysis. She remains in good spirits. 10/29/2024, seen the patient for a follow-up. Doing well and she feels that her overall respite status is back to her baseline. Oxygen is also stable and the patient is currently on 4 L of oxygen by nasal cannula. No new complaints for now. Patient feels that she can be essentially discharged home today. No other significant events overnight. Objective - Vital Signs Vital signs: Vital Signs Temp 98.1 F 10/29/24 08:00 Pulse 88 10/29/24 11:45 Resp 20 10/29/24 08:00 BP 112/68 10/29/24 08:00 Pulse Ox 92 L 10/29/24 08:00 FiO2 Intake & Output 10/28/24 10/29/24 10/29/24 18:59 06:59 18:59 Intake Total 120 240 Output Total 900 600 Balance -780 -360 Weight 60.8 kg Intake: Oral 120 240 Output: Urine 900 600 Other: Voiding Method Toilet Toilet Toilet # Bowel Movements 1 - Exam GENERAL EXAM: Alert, pleasant 74-year-old female, sitting up in bed, on 4 L/min nasal cannula, in no acute distress. HEAD: Normocephalic and atraumatic EYES: Normal reaction of pupils, equal size. Nonicteric sclera. No nystagmus. NOSE: Clear with pink turbinates. THROAT: No erythema or exudates. NECK: No masses, no JVD. No carotid bruit with strong palpable pulse bilaterally CHEST: No chest wall deformity. LUNGS: Equal air entry with no crackles, wheeze, rhonchi or dullness. Breath sounds are markedly diminished bilaterally along with scattered rhonchi scattered expiratory wheezes CVS: S1 and S2 normal with no audible murmur, regular rhythm. No extra heart sounds ABDOMEN: No hepatosplenomegaly, active bowel sounds, no guarding or rigidity. SPINE: No scoliosis or deformity SKIN: No rashes CENTRAL NERVOUS SYSTEM: Alert and oriented, cranial nerves II through XII intact, tone is normal in all 4 extremities. EXTREMITIES: There is no peripheral edema, clubbing, or cyanosis. Peripheral pulses are intact. - Labs CBC & Chem 7: 10/27/24 08:12 10/27/24 08:12 Labs: Abnormal Lab Results - Last 24 Hours (Table) 10/28/24 10/28/24 10/29/24 Range/Units 16:50 20:05 11:13 POC Glucose (mg/dL) 175 H 175 H 112 H (70-110) mg/dL Assessment and Plan Plan: Acute on chronic hypoxemic respiratory failure, currently on 5 L/min nasal cannula, chest x-ray which does not show any acute cardiopulmonary process, chronic parenchymal changes noted bilaterally. No focal airspace opacities, pleural effusions, pneumothoraces. Chest x-ray findings from this current admission is essentially showing stable findings with some chronic scarring in lung bases and upper lobe emphysematous changes. Previous CTA of the chest that showed no evidence of any pulmonary embolism. Patient is presenting essentially with an acute COPD exacerbation and the patient is improved and currently she is down to 4 L of O2 nasal cannula Acute COPD exacerbation Acute on chronic hypoxic respiratory failure, currently on 4 L of O2 nasal cannula Acute on chronic dyspnea Acute COPD exacerbation and frequent COPD exacerabations for the same and her last admission was in 09/21/24 Chronic oxygen dependence, normally maintained on 4 L/min nasal cannula Elevated troponins, did undergo a right and left heart catheterization yesterday September 23, 2024, to be treated medically, and the patient had a 30 to 40% mid to distal LAD, 40% OM1, 50% distal RCA and small aneurysmal portion of the mid RCA. Patient was offered medical therapy. Pulmonary hypertension, suspect group 3, elevated BroBNP, echocardiogram from 08/07/2024 showed a preserved LV function, nevertheless, the patient had severe pulmonary hypertension. RV was severely dilated and estimated PA pressure was 67. She had also moderate TR. Recent hospitalization for RSV tracheobronchitis on 08/06/24 Infrarenal abdominal aortic aneurysm, 4.7 cm follows with vascular surgery outpatient Systemic hypertension Peripheral vascular disease and carotid artery stenosis Former tobacco smoker Anxiety/depression Plan: Clinically stable and overall respiratory status seems to be back to her baseline Continues to improve clinically and actually she is also improving Will titrate oxygen flow to maintain oxygen saturation above 90%, currently on 4 liters O2 nasal cannula Continue DuoNeb nebulizer treatments [id number] The patient is to be discharged home today to be using her maintenance Trelegy Ellipta and albuterol nebulized treatments 4 times a day Prednisone burst taper at time of discharge Bumex 1 mg p.o. daily Continue Aldactone Sildenafil was added by cardiology regarding her chronic pulm hypertension. The role of this medication and group 3 pulmonary hypertension is clear. The patient reported some mild improvement in functionality while being on this drug. This will be continued. Resume the rest of the home medications Home today to be followed up on outpatient basis.
== END 2024-10-29 14:36 | disposition home or self-care (01) | DRG 291 ==
LOC: EC 08:27 → 3SCARD 10:24
PROVIDERS: ADMIT Student in an Organized Health Care Education/Training Program; ATTEND Student in an Organized Health Care Education/Training Program
DX: I11.0 Hypertensive heart disease with heart failure (principal); I50.33 Acute on chronic diastolic (congestive) heart failure; J96.21 Acute and chronic respiratory failure with hypoxia; J44.1 Chronic obstructive pulmonary disease with (acute) exacerbation; I27.20 Pulmonary hypertension, unspecified; F32.A Depression, unspecified; I65.29 Occlusion and stenosis of unspecified carotid artery; I73.9 Peripheral vascular disease, unspecified; E83.42 Hypomagnesemia; E87.6 Hypokalemia; I25.10 Atherosclerotic heart disease of native coronary artery without angina pectoris; E78.5 Hyperlipidemia, unspecified; F41.9 Anxiety disorder, unspecified; K58.9 Irritable bowel syndrome, unspecified; Z79.82 Long term (current) use of aspirin; Z88.0 Allergy status to penicillin; Z88.8 Allergy status to other drugs, medicaments and biological substances; Z87.891 Personal history of nicotine dependence; Z98.61 Coronary angioplasty status; Z79.51 Long term (current) use of inhaled steroids; Z79.899 Other long term (current) drug therapy; Z90.710 Acquired absence of both cervix and uterus; Z99.81 Dependence on supplemental oxygen
CPT/HCPCS: 36415; 71046; 80048; 80053; 83605; 83735; 83880; 84132; 84145; 84484; 85025; 85610; 85730; 87636; 93005; 94640; 94760; 96365; 96366; 96367; 96368; 96372; 96375; 96376; 99291

== ENCOUNTER 2024-12-03 21:43 | Inpatient (IN) | payer MEDICARE, OTHER ==
--- NOTE | 2024-12-03 22:12 | ED ---
SOB HPI - General Chief Complaint: Shortness of Breath Stated Complaint: SOB Time Seen by Provider: 12/03/24 21:51 Source: patient, EMS - History of Present Illness Initial Comments: This patient is a 74-year-old woman with history of COPD and pulmonary hypertension who complains that it feels like her breathing has been getting worse for 2 days now. She states that she is on home oxygen usually at 4 L but feels that that setting is not adequate any longer. She states that her primary physician is treating her for possible pneumonia. She does have a chronic cough and has not noted a change. No sputum. She has not noted definite fever or chills. No chest pain. No change in urination or bowels. No leg swelling or pain. MD Complaint: shortness of breath Onset/Timin -: days(s) Severity scale (1-10): 0 Consistency: constant Improves With: oxygen Worsens With: exertion Known History Of: COPD, other Associated Symptoms: denies other symptoms - Related Data Home Medications Medication Instructions Recorded Confirmed Aspirin EC [Ecotrin Low Dose] 81 mg PO DAILY 08/06/24 12/11/24 Atorvastatin [Lipitor] 40 mg PO DAILY 08/06/24 12/11/24 Cetirizine HCl [Zyrtec] 10 mg PO DAILY 08/06/24 12/11/24 Dicyclomine [Bentyl] 10 mg PO TID 08/06/24 12/11/24 Ergocalciferol [Vitamin D2 (1250 1,250 mcg PO MO 08/06/24 12/11/24 Mcg = 54138 Iu)] Fluticasone/Umeclidin/Vilanter 1 puff INHALATION RT-DAILY 08/06/24 12/11/24 [Trelegy Ellipta 200-62.5-25] Ipratropium-Albuterol Nebulize 3 ml INHALATION RT-QID PRN 08/06/24 12/11/24 [Duoneb 0.5 mg-3 mg/3 ml Soln] Ipratropium/Albuter 20-100Mcg 1 puff INHALATION RT-QID 08/06/24 12/11/24 [Combivent Respimat 20-100Mcg Inhaler] [place] 20mg 20 mg PO DAILY 08/06/24 12/11/24 Sertraline [Zoloft] 50 mg PO DAILY 08/06/24 12/11/24 amLODIPine [Norvasc] 2.5 mg PO DAILY PRN 08/06/24 12/11/24 Albuterol Sulfate [Ventolin HFA] 2 puff INHALATION RT-Q4H PRN 10/24/24 12/11/24 Previous Rx's Medication Instructions Recorded Acetaminophen Tab [Tylenol] 650 mg PO Q4HR PRN tab 08/13/24 Pantoprazole [Protonix] 40 mg PO AC-BRKFST #30 tab 08/13/24 Sildenafil [Revatio] 20 mg PO TID #90 tab 08/13/24 guaiFENesin [Mucinex] 1,200 mg PO BID #30 tab 08/13/24 Metoprolol Succinate (ER) [Toprol 12.5 mg PO DAILY #60 tab 09/25/24 XL] Bumetanide [BUMEX] 1 mg PO DAILY #30 tab 10/28/24 Spironolactone [Aldactone] 12.5 mg PO DAILY #30 tab 10/28/24 predniSONE [Deltasone] 20 mg PO DAILY #30 tab 12/09/24 Allergies Allergy/AdvReac Type Severity Reaction Status Date / Time levofloxacin [From Levaquin] Allergy Unknown Verified 12/11/24 12:51 tetracycline Allergy Unknown Verified 12/11/24 12:51 Review of Systems ROS Statement: Those systems with pertinent positive or pertinent negative responses have been documented in the HPI. ROS Other: All systems not noted in ROS Statement are negative. Constitutional: Denies: fever, chills ENT: Denies: congestion Respiratory: Reports: as per HPI, cough, dyspnea, wheezes. Denies: hemoptysis Cardiovascular: Reports: palpitations. Denies: chest pain, orthopnea, edema, syncope Gastrointestinal: Denies: abdominal pain, nausea, vomiting Genitourinary: Denies: dysuria, hematuria Musculoskeletal: Denies: back pain Skin: Denies: rash Neurological: Denies: headache, weakness Past Medical History Past Medical History: COPD, Hyperlipidemia, Hypertension, Respiratory Disorder Additional Past Medical History / Comment(s): Aortic aneurysm. Pulmonary Hypertension History of Any Multi-Drug Resistant Organisms: None Reported Past Surgical History: Breast Surgery, Hysterectomy Additional Past Surgical History / Comment(s): Knee replacement. Wrist surgery. Cataract surgery Past Anesthesia/Blood Transfusion Reactions: No Reported Reaction Past Psychological History: Depression Smoking Status: Former smoker Past Alcohol Use History: None Reported Past Drug Use History: None Reported - Past Family History Mother Family Medical History: Cancer, Diabetes Mellitus Additional Family Medical History / Comment(s): from lung cancer Father Additional Family Medical History / Comment(s): from brain aneurysm General Exam General appearance: alert, in no apparent distress Head exam: Present: atraumatic, normocephalic Eye exam: Present: normal appearance. Absent: scleral icterus, conjunctival injection ENT exam: Present: normal oropharynx Neck exam: Present: normal inspection Respiratory exam: Present: respiratory distress (Mild tachypnea), wheezes. Absent: rales, rhonchi, stridor, accessory muscle use Cardiovascular Exam: Present: normal rhythm, tachycardia, normal heart sounds. Absent: systolic murmur, diastolic murmur, rubs, gallop GI/Abdominal exam: Present: soft. Absent: distended, tenderness, guarding, rebound, rigid, mass Extremities exam: Present: normal inspection, normal capillary refill. Absent: pedal edema, calf tenderness Back exam: Present: normal inspection. Absent: CVA tenderness (R), CVA tenderness (L) Neurological exam: Present: alert Skin exam: Present: warm, dry, intact, normal color. Absent: rash Course Vital Signs 12/03/24 12/03/24 12/03/24 21:51 21:55 23:25 Temperature 97.7 F Pulse Rate 108 H 111 H Respiratory 24 24 22 Rate Blood Pressure 123/85 115/68 O2 Sat by Pulse 92 L 92 L Oximetry 12/04/24 12/04/24 12/04/24 01:02 02:06 03:05 Temperature Pulse Rate 110 H 108 H Respiratory 22 22 Rate Blood Pressure 138/103 132/92 O2 Sat by Pulse 93 L 94 L 91 L Oximetry 12/04/24 12/04/24 04:25 06:05 Temperature Pulse Rate 98 103 H Respiratory 22 24 Rate Blood Pressure 103/60 123/83 O2 Sat by Pulse 91 L 93 L Oximetry Medical Decision Making - Medical Decision Making Patient is a 74-year-old woman here with COPD exacerbation. The chest x-ray does appear to show infiltrate as well. The patient initial fluids and antibiotics started. The patient had chest x-ray that interpreted as showing right-sided infiltrate consistent with pneumonia. Was pt. sent in by a medical professional or institution ([facility]NA[facility] Diaz, [facility], urgent care, hospital, or senior living...) When possible be specific @ -[No] Did you speak to anyone other than the patient for history (EMS, parent, family, police, friend...)? What history was obtained from this source @ -[No] Did you review nursing and triage notes (agree or disagree)? Why? @ -[I reviewed and agree with nursing and triage notes] Were old charts reviewed (outside hosp., previous admission, EMS record, old EKG, old radiological studies, urgent care reports/EKG's, senior living records)? Report findings @ -[No old charts were reviewed] Differential Diagnosis (chest pain, altered mental status, abdominal pain women, abdominal pain men, vaginal bleeding, weakness, fever, dyspnea, syncope, headache, dizziness, GI bleed, back pain, seizure, CVA, palpatations, mental h ealth, musculoskeletal)? @ -[Differential Dyspnea: Coronary syndrome, arrhythmia, tamponade, asthma, COPD, pulmonary embolism, pneumonia, pneumothorax, pulmonary effusion, anaphylaxis, diabetic ketoacidosis, flailed chest, pulmonary contusion, diaphragmatic rupture, anemia, neuromuscular, this is not meant to be an all-inclusive list. EKG interpreted by me (3pts min.). @ -[I interpreted as above] X-rays interpreted by me (1pt min.). @ -[I interpreted as above CT interpreted by me (1pt min.). @ -[None done] U/S interpreted by me (1pt. min.). @ -[None done] What testing was considered but not performed or refused? (CT, X-rays, U/S, labs)? Why? @ -[None] What meds were considered but not given or refused? Why? @ -[None] Did you discuss the management of the patient with other professionals (professionals i.e. SUSANNAH Diaz, [facility]LE D[facility]GER, lab, RT, psych nurse, oncology social work, spanish professor, teacher, global chief experience officer, vocational case manager)? Give summary @ -[N Case discussed with admitting physician and treatment recommendations are incorporated Was smoking cessation discussed for >3mins.? @ -[No] Was critical care preformed (if so, how long)? @ -[Yes, 35 minutes Were there social determinants of health that impacted care today? How? (Homelessness, low income, unemployed, alcoholism, drug addiction, transp ortation, low edu. Level, literacy, decrease access to med. care, detention, rehab)? @ -[No] Was there de-escalation of care discussed even if they declined (Discuss DNR or withdrawal of care, Hospice)? DNR status @ -[No] What co-morbidities impacted this encounter? (DM, HTN, Smoking, COPD, CAD, Cancer, CVA, ARF, Chemo, Hep., AIDS, mental health diagnosis, sleep apnea, morbid obesity)? @ -[COPD Was patient admitted / discharged? Hospital course, mention meds given and route, prescriptions, significant lab abnormalities, going to OR and other pertinent info. @ -[This patient is 74-year-old woman with history of COPD presenting with worsening of underlying dyspnea. The workup does appear to show pneumonia on top of COPD exacerbation and the patient be admitted to have further treatment. Patient also to have pulmonology consultation. The patient does have mildly elevated troponin suspect this is related to sepsis. Undiagnosed new problem with uncertain prognosis? @ -[No] Drug Therapy requiring intensive monitoring for toxicity (Heparin, Nitro, Insulin, Cardizem)? @ -[No] Were any procedures done? @ -[No] Diagnosis/symptom? @ -[Acute dyspnea Acute exacerbation of COPD Acute pneumonia Elevated troponin sepsis Acute, or Chronic, or Acute on Chronic? @ -[Acute Uncomplicated (without systemic symptoms) or Complicated (systemic symptoms)? @ -[Uncomplicated Side effects of treatment? @ -[No] Exacerbation, Progression, or Severe Exacerbation? @ -[Exacerbation of COPD Poses a threat to life or bodily function? How? (Chest pain, [place], [place], pneumonia, PE, COPD, DKA, ARF, appy, cholecystitis, CVA, Diverticulitis, Homicidal, Suicidal, threat to staff... and all critical care pts) @ -[No] All treatments are based on ideal body weight as in ED triage - Lab Data Result diagrams: 12/09/24 06:28 12/09/24 06:28 Lab Results 12/03/24 12/03/24 12/03/24 Range/Units 22:37 22:37 22:37 WBC 22.98 H (4.50-10.00) 10*3/uL RBC 4.98 (4.10-5.20) 10*6/uL Hgb 14.1 (12.0-15.0) g/dL Hct 43.2 (37.2-46.3) % MCV 86.7 (80.0-97.0) fL MCH 28.3 (27.0-32.0) pg MCHC 32.6 (32.0-37.0) g/dL Plt Count 267 (140-440) 10*3/uL MPV 10.2 (9.5-12.2) fL Immature Gran % (Auto) 0.6 % Neutrophils % 92.0 % Lymphocytes % 3.1 % Monocytes % 3.8 % Eosinophils % 0.2 % Basophils % 0.3 % Immature Gran # 0.13 H (0.00-0.04) 10*3/uL Neutrophils # 21.15 H (1.80-7.70) 10*3/uL Lymphocytes # 0.71 L (0.90-5.00) 10*3/uL Monocytes # 0.87 (0.20-1.00) 10*3/uL Eosinophils # 0.04 (0.04-0.35) 10*3/uL Basophils # 0.08 (0.00-0.10) 10*3/uL PT 10.3 (10.0-12.5) sec INR 0.9 (<1.2) APTT 22.6 (22.0-30.0) sec D-Dimer 1.31 H (<0.60) mg/L FEU Sodium 136 L (137-145) mmol/L Potassium 3.3 L (3.5-5.1) mmol/L Chloride 95 L (98-107) mmol/L Carbon Dioxide 25 (22-30) mmol/L Anion Gap 16 mmol/L BUN 23 H (7-17) mg/dL Creatinine 0.85 (0.52-1.04) mg/dL Est GFR (CKD-EPI)AfAm 80 (>60 ml/min/1.73 sqM) Est GFR (CKD-EPI)NonAf 69 (>60 ml/min/1.73 sqM) Glucose 157 H (74-99) mg/dL Lactic Ac Sepsis Rflx Plasma Lactic Acid Yunior (0.7-2.0) mmol/L Calcium 9.9 (8.4-10.2) mg/dL Total Bilirubin 1.2 (0.2-1.3) mg/dL AST 46 H (14-36) U/L ALT 29 (4-34) U/L Alkaline Phosphatase 65 (38-126) U/L Troponin I (0.000-0.034) ng/mL NT-Pro-B Natriuret Pep 07241 pg/mL Total Protein 7.1 (6.3-8.2) g/dL Albumin 4.3 (3.5-5.0) g/dL Influenza Type A (PCR) (Not Detectd) Influenza Type B (PCR) (Not Detectd) RSV (PCR) (Not Detectd) SARS-CoV-2 (PCR) (Not Detectd) 12/03/24 12/03/24 12/04/24 Range/Units 22:37 23:38 00:00 WBC (4.50-10.00) 10*3/uL RBC (4.10-5.20) 10*6/uL Hgb (12.0-15.0) g/dL Hct (37.2-46.3) % MCV (80.0-97.0) fL MCH (27.0-32.0) pg MCHC (32.0-37.0) g/dL Plt Count (140-440) 10*3/uL MPV (9.5-12.2) fL Immature Gran % (Auto) % Neutrophils % % Lymphocytes % % Monocytes % % Eosinophils % % Basophils % % Immature Gran # (0.00-0.04) 10*3/uL Neutrophils # (1.80-7.70) 10*3/uL Lymphocytes # (0.90-5.00) 10*3/uL Monocytes # (0.20-1.00) 10*3/uL Eosinophils # (0.04-0.35) 10*3/uL Basophils # (0.00-0.10) 10*3/uL PT (10.0-12.5) sec INR (<1.2) APTT (22.0-30.0) sec D-Dimer (<0.60) mg/L FEU Sodium (137-145) mmol/L Potassium (3.5-5.1) mmol/L Chloride (98-107) mmol/L Carbon Dioxide (22-30) mmol/L Anion Gap mmol/L BUN (7-17) mg/dL Creatinine (0.52-1.04) mg/dL Est GFR (CKD-EPI)AfAm (>60 ml/min/1.73 sqM) Est GFR (CKD-EPI)NonAf (>60 ml/min/1.73 sqM) Glucose (74-99) mg/dL Lactic Ac Sepsis Rflx Y Plasma Lactic Acid Yunior 5.3 H* (0.7-2.0) mmol/L Calcium (8.4-10.2) mg/dL Total Bilirubin (0.2-1.3) mg/dL AST (14-36) U/L ALT (4-34) U/L Alkaline Phosphatase (38-126) U/L Troponin I 0.046 H* (0.000-0.034) ng/mL NT-Pro-B Natriuret Pep pg/mL Total Protein (6.3-8.2) g/dL Albumin (3.5-5.0) g/dL Influenza Type A (PCR) (Not Detectd) Influenza Type B (PCR) (Not Detectd) RSV (PCR) (Not Detectd) SARS-CoV-2 (PCR) (Not Detectd) 12/04/24 Range/Units 00:13 WBC (4.50-10.00) 10*3/uL RBC (4.10-5.20) 10*6/uL Hgb (12.0-15.0) g/dL Hct (37.2-46.3) % MCV (80.0-97.0) fL MCH (27.0-32.0) pg MCHC (32.0-37.0) g/dL Plt Count (140-440) 10*3/uL MPV (9.5-12.2) fL Immature Gran % (Auto) % Neutrophils % % Lymphocytes % % Monocytes % % Eosinophils % % Basophils % % Immature Gran # (0.00-0.04) 10*3/uL Neutrophils # (1.80-7.70) 10*3/uL Lymphocytes # (0.90-5.00) 10*3/uL Monocytes # (0.20-1.00) 10*3/uL Eosinophils # (0.04-0.35) 10*3/uL Basophils # (0.00-0.10) 10*3/uL PT (10.0-12.5) sec INR (<1.2) APTT (22.0-30.0) sec D-Dimer (<0.60) mg/L FEU Sodium (137-145) mmol/L Potassium (3.5-5.1) mmol/L Chloride (98-107) mmol/L Carbon Dioxide (22-30) mmol/L Anion Gap mmol/L BUN (7-17) mg/dL Creatinine (0.52-1.04) mg/dL Est GFR (CKD-EPI)AfAm (>60 ml/min/1.73 sqM) Est GFR (CKD-EPI)NonAf (>60 ml/min/1.73 sqM) Glucose (74-99) mg/dL Lactic Ac Sepsis Rflx Plasma Lactic Acid Yunior (0.7-2.0) mmol/L Calcium (8.4-10.2) mg/dL Total Bilirubin (0.2-1.3) mg/dL AST (14-36) U/L ALT (4-34) U/L Alkaline Phosphatase (38-126) U/L Troponin I (0.000-0.034) ng/mL NT-Pro-B Natriuret Pep pg/mL Total Protein (6.3-8.2) g/dL Albumin (3.5-5.0) g/dL Influenza Type A (PCR) Not Detected (Not Detectd) Influenza Type B (PCR) Not Detected (Not Detectd) RSV (PCR) Not Detected (Not Detectd) SARS-CoV-2 (PCR) Not Detected (Not Detectd) - EKG Data -: EKG Interpreted by Co EKG shows normal: sinus rhythm (With premature supraventricular complexes), axis (Normal), intervals (Normal), QRS complexes (Incomplete right bundle branch block) Rate: tachycardia (Rate 118 bpm) Interpretation: nonspecific ST-T wave changes Disposition Clinical Impression: Acute exacerbation of chronic obstructive pulmonary disease, Pneumonia, Sepsis, Elevated troponin I level Disposition: ADMITTED IP TO THIS HOSP Condition: Stable Is patient prescribed a controlled substance at d/c from ED?: No
--- NOTE | 2024-12-03 22:35 | XR ---
EXAMINATION TYPE: XR chest 2V DATE OF EXAM: 12/03/2024 10:23 PM COMPARISON: 10/24/2024 CLINICAL INDICATION: Female, 74 years old with history of difficulty breathing, TECHNIQUE: XR chest 2V view(s) obtained. FINDINGS: The heart size is normal. The pulmonary vasculature is normal. There is a right lower lobe infiltrate. Correlate for atelectasis or pneumonia. Follow-up can be perf ormed.. IMPRESSION: 1. Right lower lobe infiltrate. Correlate for atelectasis or pneumonia. [facility], , 12/03/2024 10:33 PM
[2024-12-03 22:45] LABS: Basophils # (A) 0.08 10*3/uL (0.00-0.10); Basophils % (A) 0.3 %; Eosinophils # (A) 0.04 10*3/uL (0.04-0.35); Eosinophils % (A) 0.2 %; HCT 43.2 % (37.2-46.3); HGB 14.1 g/dL (12.0-15.0); Lymphocytes # (A) 0.71 10*3/uL (0.90-5.00); Lymphocytes % (A) 3.1 %; MCH 28.3 pg (27.0-32.0); MCHC 32.6 g/dL (32.0-37.0); MCV 86.7 fL (80.0-97.0); Mean Platelet Volume 10.2 fL (9.5-12.2); Monocytes # (A) 0.87 10*3/uL (0.20-1.00); Monocytes % (A) 3.8 %; Neutrophils # (A) 21.15 10*3/uL (1.80-7.70); Platelet Count 267 10*3/uL (140-440); RBC 4.98 10*6/uL (4.10-5.20); RDW 17.4 % (11.5-14.5); WBC 22.98 10*3/uL (4.50-10.00)
[2024-12-03 23:04] LABS: African American GFR (CKD) 80 (>60 ml/min/1.73 sqM); Anion Gap 16 mmol/L; Blood Urea Nitrogen 23 mg/dL (7-17); Calcium 9.9 mg/dL (8.4-10.2); Carbon Dioxide 25 mmol/L (22-30); Chloride 95 mmol/L (98-107); Glucose 157 mg/dL (74-99); INR 0.9 (<1.2); Non-African American GFR(CKD) 69 (>60 ml/min/1.73 sqM); Partial Thromboplastin Time 22.6 sec (22.0-30.0); Prothrombin Time 10.3 sec (10.0-12.5); Sodium 136 mmol/L (137-145); Total Bilirubin 1.2 mg/dL (0.2-1.3)
[2024-12-03 23:12] LABS: NT-Pro-B-Type Natriuretic Pept 15900 pg/mL
[2024-12-03 23:33] LABS: Potassium 3.3 mmol/L (3.5-5.1); Total Protein 7.1 g/dL (6.3-8.2)
[2024-12-03 23:34] LABS: ALT 29 U/L (4-34); AST 46 U/L (14-36); Albumin 4.3 g/dL (3.5-5.0); Alkaline Phosphatase 65 U/L (38-126)
[2024-12-04] MEDS ORDERED: ALBUTEROL NEBULIZED 2.5 MG/3 ML INHALATION PRN (00:17)
[2024-12-04] MEDS ORDERED: PNEUMONIA PROTOCOL UTILIZED 1 EACH MISC PO PRN (00:17)
[2024-12-04] MEDS: LACTATED RINGERS 1,000 ML IV ONE (00:35)
[2024-12-04] MEDS: LACTATED RINGERS 250 ML IV ONE (00:35)
[2024-12-04] MEDS: cefTRIAXone 2 GM in DEXTROSE 5% IN WATER 50 ML IVPB SCH (00:37)
[2024-12-04 00:56] LABS: Influenza A Not Detected (Not Detectd); Influenza B Not Detected (Not Detectd); RSV Not Detected (Not Detectd)
[2024-12-04] MEDS: POTASSIUM CHLORIDE ER 20 MEQ TAB.ER PO STA (01:26)
[2024-12-04] MEDS: LACTATED RINGERS 1,000 ML IV SCH (02:59)
[2024-12-04] MEDS: AZITHROMYCIN 500 MG in SODIUM CHLORIDE 0.9% 250 ML IVPB STA (03:00)
[2024-12-04] MEDS ORDERED: NALOXONE 0.4 MG/ML 1 ML VIAL IV PRN (07:12)
--- NOTE | 2024-12-04 07:12 | P.HPIM ---
History of Present Illness H&P Date: 12/04/24 Chief Complaint: Shortness of breath Patient is a 74-year-old female with a history of chronic hypoxic respiratory failure on 4 L of oxygen. The patient also has pulmonary hypertension. She states she was a smoker but quit in 2005. The patient was tachycardic with a pulse of 110. The patient had a systolic blood pressure 138/103 and was 94% on high flow cannula. The patient had a chest x-ray that showed right lower lobe infiltrate. The patient also had an elevated lactic acid of 5.3 elevated troponin of 0.046. The patient was hospitalized for further workup and management. Review of Systems Respiratory: Reports dyspnea, Reports home oxygen, Reports pain on inspiration Past Medical History Past Medical History: COPD, Hyperlipidemia, Hypertension, Respiratory Disorder Additional Past Medical History / Comment(s): Aortic aneurysm. Pulmonary Hypertension History of Any Multi-Drug Resistant Organisms: None Reported Past Surgical History: Breast Surgery, Hysterectomy Additional Past Surgical History / Comment(s): Knee replacement. Wrist surgery. Cataract surgery Past Anesthesia/Blood Transfusion Reactions: No Reported Reaction Past Psychological History: Depression Smoking Status: Former smoker Past Alcohol Use History: None Reported Past Drug Use History: None Reported - Past Family History Mother Family Medical History: Cancer, Diabetes Mellitus Additional Family Medical History / Comment(s): from lung cancer Father Additional Family Medical History / Comment(s): from brain aneurysm Medications and Allergies Home Medications Medication Instructions Recorded Confirmed Type Aspirin EC [Ecotrin Low Dose] 81 mg PO DAILY 08/06/24 10/24/24 History Atorvastatin [Lipitor] 40 mg PO DAILY 08/06/24 10/24/24 History Cetirizine HCl [Zyrtec] 10 mg PO DAILY 08/06/24 10/24/24 History Dicyclomine [Bentyl] 10 mg PO TID 08/06/24 10/24/24 History Ergocalciferol [Vitamin D2 (1250 1,250 mcg PO MO 08/06/24 10/24/24 History Mcg = 29780 Iu)] Fluticasone/Umeclidin/Vilanter 1 puff INHALATION RT-DAILY 08/06/24 10/24/24 History [Trelegy Ellipta 200-62.5-25] Ipratropium-Albuterol Nebulize 3 ml INHALATION RT-QID PRN 08/06/24 10/24/24 History [Duoneb 0.5 mg-3 mg/3 ml Soln] Ipratropium/Albuter 20-100Mcg 1 puff INHALATION RT-QID 08/06/24 10/24/24 History [Combivent Respimat 20-100Mcg Inhaler] [place] 20mg 20 mg PO DAILY 08/06/24 10/24/24 History Sertraline [Zoloft] 50 mg PO DAILY 08/06/24 10/24/24 History amLODIPine [Norvasc] 2.5 mg PO DAILY PRN 08/06/24 10/24/24 History Acetaminophen Tab [Tylenol] 650 mg PO Q4HR PRN tab 08/13/24 10/24/24 Rx Pantoprazole [Protonix] 40 mg PO AC-BRKFST #30 tab 08/13/24 10/24/24 Rx Sildenafil [Revatio] 20 mg PO TID #90 tab 08/13/24 10/24/24 Rx guaiFENesin [Mucinex] 1,200 mg PO BID #30 tab 08/13/24 10/24/24 Rx Metoprolol Succinate (ER) [Toprol 12.5 mg PO DAILY #60 tab 09/25/24 10/24/24 Rx XL] Albuterol Sulfate [Ventolin HFA] 2 puff INHALATION RT-Q4H PRN 10/24/24 10/24/24 History predniSONE 10 mg PO DAILY 10/24/24 10/24/24 History Bumetanide [BUMEX] 1 mg PO DAILY #30 tab 10/28/24 Rx Spironolactone [Aldactone] 12.5 mg PO DAILY #30 tab 10/28/24 Rx predniSONE 10 mg PO DIRECTED #60 tab 10/28/24 Rx Allergies Allergy/AdvReac Type Severity Reaction Status Date / Time levofloxacin [From Levaquin] Allergy Unknown Verified 12/03/24 21:53 tetracycline Allergy Unknown Verified 12/03/24 21:53 Physical Exam Vitals: Vital Signs Temp Pulse Pulse Resp BP BP Pulse Ox 12/04/24 06:30 97.7 F 105 H 28 H 125/83 89 L 12/04/24 06:05 103 H 24 123/83 93 L 12/04/24 04:25 98 22 103/60 91 L 05/10/25 03:05 108 H 22 132/92 91 L 12/04/24 02:06 110 H 22 138/103 94 L 12/04/24 01:02 93 L 12/03/24 23:25 111 H 22 115/68 92 L 12/03/24 21:55 24 12/03/24 21:51 97.7 F 108 H 24 123/85 92 L Intake and Output 12/03/24 12/04/24 12/04/24 22:59 06:59 14:59 Other: Weight 58.06 kg - Constitutional General appearance: mild distress - Respiratory Respiratory: bilateral: diminished, rhonchi, wheezing - Cardiovascular Rhythm: regular - Gastrointestinal General gastrointestinal: normal bowel sounds - Musculoskeletal Musculoskeletal: strength equal bilaterally - Psychiatric Psychiatric: A&O x's 3, appropriate affect Results CBC & Chem 7: 12/03/24 22:37 12/03/24 22:37 Labs: Abnormal Lab Results - Last 24 Hours (Table) 12/03/24 12/03/24 12/03/24 Range/Units 22:37 22:37 22:37 WBC 22.98 H (4.50-10.00) 10*3/uL Immature Gran # 0.13 H (0.00-0.04) 10*3/uL Neutrophils # 21.15 H (1.80-7.70) 10*3/uL Lymphocytes # 0.71 L (0.90-5.00) 10*3/uL D-Dimer 1.31 H (<0.60) mg/L FEU Sodium 136 L (137-145) mmol/L Potassium 3.3 L (3.5-5.1) mmol/L Chloride 95 L (98-107) mmol/L BUN 23 H (7-17) mg/dL Glucose 157 H (74-99) mg/dL Plasma Lactic Acid Yunior (0.7-2.0) mmol/L AST 46 H (14-36) U/L Troponin I (0.000-0.034) ng/mL 12/03/24 12/04/24 12/04/24 Range/Units 22:37 00:00 03:00 WBC (4.50-10.00) 10*3/uL Immature Gran # (0.00-0.04) 10*3/uL Neutrophils # (1.80-7.70) 10*3/uL Lymphocytes # (0.90-5.00) 10*3/uL D-Dimer (<0.60) mg/L FEU Sodium (137-145) mmol/L Potassium (3.5-5.1) mmol/L Chloride (98-107) mmol/L BUN (7-17) mg/dL Glucose (74-99) mg/dL Plasma Lactic Acid Yunior 5.3 H* 4.3 H* (0.7-2.0) mmol/L AST (14-36) U/L Troponin I 0.046 H* (0.000-0.034) ng/mL Chest x-ray: report reviewed Assessment and Plan (1) Acute exacerbation of chronic obstructive pulmonary disease Narrative/Plan: Patient with COPD, chronic hypoxic respiratory failure on 4 L of oxygen. The patient states that she has limited mobility uses a scooter because of her chronic shortness of breath. Will consult pulmonary. Current Visit: No Status: Acute Code(s): J44.1 - CHRONIC OBSTRUCTIVE PULMONARY DISEASE W (ACUTE) EXACERBATION SNOMED Code(s): 507783687 (2) Community acquired pneumonia Narrative/Plan: Continue Rocephin IV, nebs,. Current Visit: No Status: Acute Code(s): J18.9 - PNEUMONIA, UNSPECIFIED ORGANISM SNOMED Code(s): 680336227 (3) Hypokalemia Narrative/Plan: Will replete and monitor as needed. Current Visit: No Status: Acute Code(s): E87.6 - HYPOKALEMIA SNOMED Code(s): 22870239 (4) Acute respiratory failure Narrative/Plan: Acute on chronic hypoxic respiratory failure. Continue oxygen supplementation. Pulmonary consult, nebs, steroid. Current Visit: No Status: Acute Code(s): J96.00 - ACUTE RESPIRATORY FAILURE, UNSP W HYPOXIA OR HYPERCAPNIA SNOMED Code(s): 69400716
[2024-12-04] MEDS: IPRATROPIUM-ALBUTEROL 3 ML NEB INHALATION SCH (08:03)
--- NOTE | 2024-12-04 10:06 | CT ---
EXAMINATION TYPE: CT angio chest DATE OF EXAM: 12/04/2024 COMPARISON: NONE CLINICAL INDICATION: Female, 74 years old with history of Hypoxemia, SOB, SOB, TECHNIQUE: CTA scan of the thorax is performed with IV Contrast, patient injected with 75 mL of Isovue 370, pulm onary embolism protocol. MIP Images are created on CT scanner and reviewed. CT DLP: 264.1 mGycm. Automated Exposure Control for Dose Reduction was Utilized. FINDINGS: LUNGS: Moderate to severe underlying emphysematous change with moderate bibasilar parenchymal fibrosi s is present. No suspicious focal consolidation. Moderate diffuse bilateral peripheral reticulation o r fibrosis is seen. No pleural effusion or pneumothorax is noted. HEART: Size within normal limits.Moderate right atrial and right ventricular dilatation is present. S evere three-vessel coronary artery calcifications are noted. MEDIASTINUM: There is satisfactory enhancement of the pulmonary artery and its branches, there is no CT evidence for pulmonary embolism. Enlarged main pulmonary artery suggests underlying pulmonary denton ry hypertension. Prominent but subcentimeter lymph nodes throughout the mediastinum. Trace pericardia l effusion. OTHER: Intraluminal 1.4 cm gallstone. Partial visualization of abdominal aortic aneurysm. Right breas t implant is present. IMPRESSION: 1. No CT evidence for acute pulmonary embolism. 2. Moderate to severe underlying emphysematous change with moderate parenchymal fibrosis. No suspicio us acute pulmonary process. 3. AAA is partially imaged, advise imaging follow-up to further evaluate if this is not known finding . [facility], , 12/04/2024 10:03 AM
--- NOTE | 2024-12-04 10:14 | P.CNPUL ---
History of Present Illness Consult date: 12/04/24 Requesting physician: Theresa Cruz Reason for consult: dyspnea, cough, COPD, hypoxemia, pneumonia, abnormal CXR/CT Chief complaint: Shortness of breath. History of present illness: Pulmonary consult dated December 04, 2024. 74-year-old female, seen today in room 362. The patient was initially seen in the emergency department, for shortness of breath. The patient has a substantial history of underlying COPD, which is quite severe, and chronic hypoxemic respiratory failure. She sees one of my partners in the office for her COPD. She is on home O2, 24/7, and 4 L. She was evaluated in the emergency department, thought to have a possible right lower lobe pneumonia. She was started on azithromycin, and Rocephin. In addition, she was placed on DuoNeb. We have added Solu-Medrol, budesonide, and formoterol, at usual doses. The patient is getting LR at 75 cc an hour. She is on high flow nasal cannula at 15 L. Her BNP was quite elevated at 15,900. We are going to order a CTA to rule out PE. We are also going to check a procalcitonin level, among other things. In addition to COPD, she has a history of hypertension, hyperlipidemia, aortic aneurysm, pulmonary hypertension. Current labs showed a white count of 22.9, hemoglobin 14.1, hematocrit 43.2, and a normal platelet count. D-dimer was 1.31. Sodium 136, potassium 3.3, chlorides 95, CO2 25, anion gap 16, BUN 23, creatinine 0.85. Lactic acid was 5.3. Repeat was 1.4. Troponin was 0.046. N- terminal proBNP was 15,900. Viral screen was negative. Chest x-ray shows a possible right lower lobe infiltrate. Review of Systems REVIEW OF SYSTEMS: CONSTITUTIONAL: [Negative.] NEUROLOGIC: [ Negative.] HEENT: [ Negative.] CARDIAC: [Negative.] PULMONARY: Shortness of breath, cough, phlegm production. GI: [Negative.] : [Negative.] RHEUMATOLOGIC: [ Negative.] IMMUNOLOGIC: [ Negative.] ENDOCRINE: [Negative. ] DERMATOLOGIC: [Negative.] Past Medical History Past Medical History: COPD, Hyperlipidemia, Hypertension, Respiratory Disorder Additional Past Medical History / Comment(s): Aortic aneurysm. Pulmonary Hypertension History of Any Multi-Drug Resistant Organisms: None Reported Past Surgical History: Breast Surgery, Hysterectomy Additional Past Surgical History / Comment(s): Knee replacement. Wrist surgery. Cataract surgery Past Anesthesia/Blood Transfusion Reactions: No Reported Reaction Past Psychological History: Depression Smoking Status: Former smoker Past Alcohol Use History: None Reported Past Drug Use History: None Reported - Past Family History Mother Family Medical History: Cancer, Diabetes Mellitus Additional Family Medical History / Comment(s): from lung cancer Father Additional Family Medical History / Comment(s): from brain aneurysm Medications and Allergies Home Medications Medication Instructions Recorded Confirmed Type Aspirin EC [Ecotrin Low Dose] 81 mg PO DAILY 08/06/24 10/24/24 History Atorvastatin [Lipitor] 40 mg PO DAILY 08/06/24 10/24/24 History Cetirizine HCl [Zyrtec] 10 mg PO DAILY 08/06/24 10/24/24 History Dicyclomine [Bentyl] 10 mg PO TID 08/06/24 10/24/24 History Ergocalciferol [Vitamin D2 (1250 1,250 mcg PO MO 08/06/24 10/24/24 History Mcg = 85804 Iu)] Fluticasone/Umeclidin/Vilanter 1 puff INHALATION RT-DAILY 08/06/24 10/24/24 History [Trelegy Ellipta 200-62.5-25] Ipratropium-Albuterol Nebulize 3 ml INHALATION RT-QID PRN 08/06/24 10/24/24 History [Duoneb 0.5 mg-3 mg/3 ml Soln] Ipratropium/Albuter 20-100Mcg 1 puff INHALATION RT-QID 08/06/24 10/24/24 History [Combivent Respimat 20-100Mcg Inhaler] [place] Puckett 20mg 20 mg PO DAILY 08/06/24 10/24/24 History Sertraline [Zoloft] 50 mg PO DAILY 08/06/24 10/24/24 History amLODIPine [Norvasc] 2.5 mg PO DAILY PRN 08/06/24 10/24/24 History Acetaminophen Tab [Tylenol] 650 mg PO Q4HR PRN tab 08/13/24 10/24/24 Rx Pantoprazole [Protonix] 40 mg PO AC-BRKFST #30 tab 08/13/24 10/24/24 Rx Sildenafil [Revatio] 20 mg PO TID #90 tab 08/13/24 10/24/24 Rx guaiFENesin [Mucinex] 1,200 mg PO BID #30 tab 08/13/24 10/24/24 Rx Metoprolol Succinate (ER) [Toprol 12.5 mg PO DAILY #60 tab 09/25/24 10/24/24 Rx XL] Albuterol Sulfate [Ventolin HFA] 2 puff INHALATION RT-Q4H PRN 10/24/24 10/24/24 History predniSONE 10 mg PO DAILY 10/24/24 10/24/24 History Bumetanide [BUMEX] 1 mg PO DAILY #30 tab 10/28/24 Rx Spironolactone [Aldactone] 12.5 mg PO DAILY #30 tab 10/28/24 Rx predniSONE 10 mg PO DIRECTED #60 tab 10/28/24 Rx Allergies Allergy/AdvReac Type Severity Reaction Status Date / Time levofloxacin [From Levaquin] Allergy Unknown Verified 12/03/24 21:53 tetracycline Allergy Unknown Verified 12/03/24 21:53 Physical Exam Osteopathic Statement: *. No significant issues noted on an osteopathic structural exam other than those noted in the History and Physical/Consult. Vitals: Vital Signs Temp Pulse Pulse Resp BP BP Pulse Ox 12/04/24 09:29 113 H 25 H 12/04/24 08:16 120 H 12/04/24 08:08 116 H 12/04/24 07:59 113 H 25 H 101/68 87 L 12/04/24 06:30 97.7 F 105 H 28 H 125/83 89 L 12/04/24 06:05 103 H 24 123/83 93 L 12/04/24 04:25 98 22 103/60 91 L 12/04/24 03:05 108 H 22 132/92 91 L 12/04/24 02:06 110 H 22 138/103 94 L 12/04/24 01:02 93 L 12/03/24 23:25 111 H 22 115/68 92 L 12/03/24 21:55 24 12/03/24 21:51 97.7 F 108 H 24 123/85 92 L Intake and Output 12/03/24 12/04/24 12/04/24 22:59 06:59 14:59 Other: Weight 58.06 kg No acute distress, oriented 3. Despite being on 15 L high flow oxygen, the patient can speak in full sentences. No audible wheezing. No use of accessory muscles. HEENT examination is grossly unremarkable. Mucous membranes are moist. No oral lesions. Neck supple. Full range of motion. No adenopathy thyromegaly or neck vein distention. Cardiovascular examination reveals regular rhythm rate. S1-S2 normal. No S3 or S4. No discernible murmur noted. Lungs reveal severely diminished breath sounds bilaterally. Scattered rhonchi and wheezes are noted. No crackles. Breath sounds equal bilaterally. Abdomen soft bowel sounds are heard. No masses or tenderness. Extremities are intact. No cyanosis clubbing or edema. Skin is without rash or lesion. Neurologic examination is brief but nonfocal. Results - Laboratory Findings CBC and BMP: 12/03/24 22:37 12/03/24 22:37 PT/INR, D-dimer PT 10.3 sec (10.0-12.5) 12/03/24 22:37 INR 0.9 (<1.2) 12/03/24 22:37 D-Dimer 1.31 mg/L FEU (<0.60) H 12/03/24 22:37 Abnormal lab findings: Abnormal Labs 12/03/24 12/03/24 12/03/24 22:37 22:37 22:37 WBC 22.98 H Immature Gran # 0.13 H Neutrophils # 21.15 H Lymphocytes # 0.71 L D-Dimer 1.31 H Sodium 136 L Potassium 3.3 L Chloride 95 L BUN 23 H Glucose 157 H Plasma Lactic Acid Yunior AST 46 H Troponin I 12/03/24 12/04/24 12/04/24 22:37 00:00 03:00 WBC Immature Gran # Neutrophils # Lymphocytes # D-Dimer Sodium Potassium Chloride BUN Glucose Plasma Lactic Acid Yunior 5.3 H* 4.3 H* AST Troponin I 0.046 H* - Diagnostic Findings Chest x-ray: image reviewed Assessment and Plan Assessment: Acute hypoxemic respiratory failure, secondary to acute exacerbation of COPD, possibly complicated by right lower lobe pneumonia, and fluid overload. Rule out pulmonary embolism. History of severe oxygen dependent COPD with chronic hypoxemic respiratory failure. Previous history of tobacco use. History of hyperlipidemia. History of hypertension. History of pulmonary hypertension. History of aortic aneurysm. History of depression. Plan: Plan dated December 04, 2024. We have ordered a CTA, to rule out pulmonary embolism. In addition, we will check a procalcitonin level. Chest x-ray suggested a right lower lobe infiltrat e/pneumonia. The patient is already on azithromycin and Rocephin. The patient was also receiving DuoNeb. We have added Solu-Medrol, and budesonide and formoterol at usual doses. Currently, the patient is getting lactated Ringer's at 75 cc an hour. The patient is getting high flow nasal O2 at 15 L. We will continue to follow make recommendations. Prognosis is guarded. Dictation was produced using [employer] dictation software. Please excuse any grammatical, word or spelling errors. Time with Patient: Greater than 30
[2024-12-04] MEDS ORDERED: DEXTROSE 50% SYRINGE 50 ML IVP PRN ×2 (10:49)
[2024-12-04] MEDS: INSULIN LISPRO (HumaLOG) 100 UNIT/ML 10 mL VL SQ SCH (11:39)
[2024-12-04] MEDS: methylPREDNISolone SOD SUCCI 125 MG/2 ML VIAL IV SCH (12:00)
--- NOTE | 2024-12-04 12:43 | P.PN ---
Progress Note - Text Progress Note Date: 12/04/24 Patient was seen and examined, she is feeling a little better today, still requiring high flow nasal cannula. Was seen by pulmonary ordered a CTA, to rule out pulmonary embolism. The results were reviewed, no PE was found. Currently being treated for COPD exacerbation with steroids, bronchodilators and abx.
[2024-12-04 16:19] LABS: Glucose,Whole Blood 154 mg/dL (70-110)
[2024-12-04] MEDS ORDERED: ALBUTEROL HFA INHALER INHALATION PRN (17:39)
[2024-12-04] MEDS ORDERED: amLODIPine 2.5 MG TAB PO PRN (17:39)
[2024-12-04] MEDS: LORATADINE 10 MG TAB PO SCH (18:03)
[2024-12-04] MEDS: ASPIRIN 81 MG PO SCH (18:03)
[2024-12-04] MEDS: PANTOPRAZOLE 40 MG TABLET PO SCH (18:03)
[2024-12-04] MEDS: SERTRALINE 50 MG TAB PO SCH (18:03)
[2024-12-04] MEDS: ATORVASTATIN 40 MG TAB PO SCH (18:03)
[2024-12-04] MEDS: ACETAMINOPHEN TAB 325 MG TAB PO PRN (18:03)
[2024-12-04 19:55] LABS: Glucose,Whole Blood 192 mg/dL (70-110)
[2024-12-04] MEDS ORDERED: NON FORMULARY DRUG (Ipratropium/Albuter 20-100mcg 120 PUFF Each) INHALATION SCH (20:00)
[2024-12-04] MEDS: FORMOTEROL FUMARATE 20 MCG/2 ML NEBU INHALATION SCH (20:40)
[2024-12-04] MEDS: BUDESONIDE 1 MG/2 ML NEBU INHALATION SCH (20:40)
[2024-12-04] MEDS: IPRATROPIUM-ALBUTEROL 3 ML NEB INHALATION PRN (20:40)
[2024-12-04] MEDS: guaiFENesin 600 MG TABLET.ER PO SCH (20:53)
[2024-12-04] MEDS: DICYCLOMINE 10 MG CAP PO SCH (20:53)
[2024-12-05 05:58] LABS: Glucose,Whole Blood 256 mg/dL (70-110)
[2024-12-05 07:55] LABS: Basophils # (A) 0.02 10*3/uL (0.00-0.10); Basophils % (A) 0.1 %; HCT 41.6 % (37.2-46.3); HGB 13.2 g/dL (12.0-15.0); Lymphocytes # (A) 0.45 10*3/uL (0.90-5.00); Lymphocytes % (A) 2.7 %; MCH 28.4 pg (27.0-32.0); MCHC 31.7 g/dL (32.0-37.0); MCV 89.5 fL (80.0-97.0); Mean Platelet Volume 10.6 fL (9.5-12.2); Monocytes # (A) 0.61 10*3/uL (0.20-1.00); Monocytes % (A) 3.7 %; Neutrophils # (A) 15.12 10*3/uL (1.80-7.70); Neutrophils % (A) 92.2 %; Platelet Count 288 10*3/uL (140-440); RBC 4.65 10*6/uL (4.10-5.20); RDW 17.2 % (11.5-14.5); WBC 16.41 10*3/uL (4.50-10.00)
[2024-12-05] MEDS ORDERED: NON FORMULARY DRUG (Fluticasone/Umeclidin/Vilanter [Trelegy Ellipta 200-62.5-25] 1 EACH Bl INHALATION SCH (08:00)
--- NOTE | 2024-12-05 08:07 | XR ---
EXAMINATION TYPE: XR chest 2V DATE OF EXAM: 12/05/2024 7:26 AM COMPARISON: Chest radiograph from two days prior. CLINICAL INDICATION: Female, 74 years old with history of pneumonia; [facility] TECHNIQUE: XR chest 2V Frontal and lateral views of the chest. FINDINGS: Lungs/Pleura: There is no evidence of pleural effusion, focal consolidation, or pneumothorax. Pulmonary vascularity: Unremarkable. Heart/mediastinum: Cardiomediastinal silhouette is unremarkable. Musculoskeletal: No acute osseous pathology. IMPRESSION: 1. No acute cardiopulmonary disease process. 2. COPD changes. [facility], , 12/05/2024 8:05 AM
[2024-12-05] MEDS: IPRATROPIUM-ALBUTEROL 3 ML NEB INHALATION SCH (08:35)
--- NOTE | 2024-12-05 08:51 | P.PN ---
Subjective Progress Note Date: 12/05/24 Principal diagnosis: COPD exacerbation. Pulmonary consult dated December 04, 2024. 74-year-old female, seen today in room 362. The patient was initially seen in the emergency department, for shortness of breath. The patient has a substantial history of underlying COPD, which is quite severe, and chronic hypoxemic respiratory failure. She sees one of my partners in the office for her COPD. She is on home O2, 24/7, and 4 L. She was evaluated in the emergency department, thought to have a possible right lower lobe pneumonia. She was started on azithromycin, and Rocephin. In addition, she was placed on DuoNeb. We have added Solu-Medrol, budesonide, and formoterol, at usual doses. The patient is getting LR at 75 cc an hour. She is on high flow nasal cannula at 15 L. Her BNP was quite elevated at 15,900. We are going to order a CTA to rule out PE. We are also going to check a procalcitonin level, among other things. In addition to COPD, she has a history of hypertension, hyperlipidemia, aortic aneurysm, pulmonary hypertension. Current labs showed a white count of 22.9, hemoglobin 14.1, hematocrit 43.2, and a normal platelet count. D-dimer was 1.31. Sodium 136, potassium 3.3, chlorides 95, CO2 25, anion gap 16, BUN 23, creatinine 0.85. Lactic acid was 5.3. Repeat was 1.4. Troponin was 0.046. N- terminal proBNP was 15,900. Viral screen was negative. Chest x-ray shows a possible right lower lobe infiltrate. Progress note dated December 05, 2024. 74-year-old female seen in consultation, on December 04. Please see my note above. The patient has a history of severe oxygen dependent COPD. She came into the hospital, with complaints of increasing shortness of breath. Initial chest x- ray suggested a right lower lobe infiltrate. No infiltrate was seen on CT scan. There was no evidence of pulmonary embolism on CTA as well. The patient's procalcitonin level was 0.36. Antibiotics were discontinued. The patient was not really coughing, or producing any phlegm, and did not have any fever or chills. Currently, she is resting comfortably. She is requiring high flow nasal cannula at 15 L. She is not receiving any supplemental fluids. White co unt 16.41, hemoglobin 13.2, hematocrit 41.6, and platelet count 288,000. Objective - Vital Signs Vital signs: Vital Signs Temp 98.0 F 12/04/24 23:45 Pulse 113 H 12/05/24 08:35 Resp 24 12/05/24 04:56 BP 125/84 12/05/24 04:56 Pulse Ox 91 L 12/05/24 08:35 FiO2 Intake & Output 12/04/24 12/05/24 12/05/24 18:59 06:59 18:59 Intake Total 600 540 Output Total 900 2000 Balance -300 -1460 Weight 58.06 kg 62.3 kg Intake: Oral 600 540 Output: Urine 900 2000 Other: Voiding Method Bedside Commode # Voids 1 # Bowel Movements 1 - Exam No acute distress, oriented 3. Despite being on 15 L high flow oxygen, the patient can speak in full sentences. No audible wheezing. No use of accessory muscles. HEENT examination is grossly unremarkable. Mucous membranes are moist. No oral lesions. Neck supple. Full range of motion. No adenopathy thyromegaly or neck vein distention. Cardiovascular examination reveals regular rhythm rate. S1-S2 normal. No S3 or S4. No discernible murmur noted. Lungs reveal severely diminished breath sounds bilaterally. Scattered rhonchi and wheezes are noted. No crackles. Breath sounds equal bilaterally. Abdomen soft bowel sounds are heard. No masses or tenderness. Extremities are intact. No cyanosis clubbing or edema. Skin is without rash or lesion. Neurologic examination is brief but nonfocal. - Labs CBC & Chem 7: 12/05/24 07:36 12/03/24 22:37 Labs: Abnormal Lab Results - Last 24 Hours (Table) 12/04/24 12/04/24 12/05/24 Range/Units 16:17 19:54 05:57 WBC (4.50-10.00) 10*3/uL MCHC (32.0-37.0) g/dL Immature Gran # (0.00-0.04) 10*3/uL Neutrophils # (1.80-7.70) 10*3/uL Lymphocytes # (0.90-5.00) 10*3/uL Eosinophils # (0.04-0.35) 10*3/uL POC Glucose (mg/dL) 154 H 192 H 256 H (70-110) mg/dL 12/05/24 Range/Units 07:36 WBC 16.41 H (4.50-10.00) 10*3/uL MCHC 31.7 L (32.0-37.0) g/dL Immature Gran # 0.21 H (0.00-0.04) 10*3/uL Neutrophils # 15.12 H (1.80-7.70) 10*3/uL Lymphocytes # 0.45 L (0.90-5.00) 10*3/uL Eosinophils # 0.00 L (0.04-0.35) 10*3/uL POC Glucose (mg/dL) (70-110) mg/dL Microbiology - Last 24 Hours (Table) 12/04/24 08:46 Gram Stain - Preliminary Sputum Assessment and Plan Assessment: Acute hypoxemic respiratory failure, secondary to acute exacerbation of COPD, possibly complicated by right lower lobe pneumonia, and fluid overload. Pulmonary embolism ruled out. History of severe oxygen dependent COPD with chronic hypoxemic respiratory failure. Previous history of tobacco use. History of hyperlipidemia. History of hypertension. History of pulmonary hypertension. History of aortic aneurysm. History of depression. Plan: Plan dated December 04, 2024. We have ordered a CTA, to rule out pulmonary embolism. In addition, we will check a procalcitonin level. Chest x-ray suggested a right lower lobe infiltrate/pneumonia. The patient is already on azithromycin and Rocephin. The patient was also receiving DuoNeb. We have added Solu-Medrol, and budesonide and formoterol at usual doses. Currently, the patient is getting lactated Ri nger's at 75 cc an hour. The patient is getting high flow nasal O2 at 15 L. We will continue to follow make recommendations. Prognosis is guarded. Dictation was produced using [employer] dictation software. Please excuse any grammatical, word or spelling errors. Plan dated December 05, 2024. The patient is seen today in room 362. She is sitting in the chair next to the hospital bed. Despite the fact that she is on 15 L high flow nasal cannula, she looks much improved. Her procalcitonin level was 0.36. Antibiotics were discontinued. She continues on appropriate medications including budesonide, formoterol, Solu-Medrol, and DuoNebs. Labs, x-rays, and all medications are reviewed. We will continue to follow. Prognosis is guarded. The patient does have severe COPD, and chronic hypoxemic respiratory failure, and uses oxygen at home at 4 L. Dictation was produced using [employer] dictation software. Please excuse any grammatical, word or spelling errors. Time with Patient: Less than 30
[2024-12-05] MEDS: SPIRONOLACTONE 25 MG TAB PO SCH (08:56)
[2024-12-05] MEDS: BUMETANIDE 1 MG TAB PO SCH (08:57)
[2024-12-05] MEDS ORDERED: AZITHROMYCIN 500 MG TAB PO SCH (09:00)
[2024-12-05 10:57] LABS: Glucose,Whole Blood 201 mg/dL (70-110)
--- NOTE | 2024-12-05 11:21 | P.PN ---
Subjective Progress Note Date: 12/05/24 Principal diagnosis: COPD exacerbation Patient started to feel slightly better today, still requiring 15 L of high flow nasal cannula. Started to have a cough today still with shortness of breath. No pain. No fevers or chills. Objective - Vital Signs Vital signs: Vital Signs Temp 97.9 F 12/05/24 08:00 Pulse 116 H 12/05/24 09:00 Resp 20 12/05/24 08:00 BP 129/82 12/05/24 08:00 Pulse Ox 91 L 12/05/24 08:35 FiO2 Intake & Output 12/04/24 12/05/24 12/05/24 18:59 06:59 18:59 Intake Total 600 540 120 Output Total 900 2000 Balance -300 -1460 120 Weight 58.06 kg 62.3 kg Intake: Oral 600 540 120 Output: Urine 900 2000 Other: Voiding Method Bedside Commode Bedside Commode # Voids 1 # Bowel Movements 1 - Exam General no acute distress, oriented 3. Comfortable HEENT examination is grossly unremarkable. Mucous membranes are moist. No oral lesions. Neck supple. Full range of motion. No adenopathy thyromegaly or neck vein distention. Cardiovascular examination reveals regular rhythm rate. S1-S2 normal. No S3 or S4. No discernible murmur noted. Lungs diminished breath sounds bilaterally. Scattered rhonchi and wheezes are noted. No crackles. Breath sounds equal bilaterally. Abdomen soft bowel sounds are heard. No masses or tenderness. Extremities are intact. No cyanosis clubbing or edema. Skin is without rash or lesion. Neurologic examination is brief but nonfocal. - Labs CBC & Chem 7: 12/05/24 07:36 12/03/24 22:37 Labs: Abnormal Lab Results - Last 24 Hours (Table) 12/04/24 12/04/24 12/05/24 Range/Units 16:17 19:54 05:57 WBC (4.50-10.00) 10*3/uL MCHC (32.0-37.0) g/dL Immature Gran # (0.00-0.04) 10*3/uL Neutrophils # (1.80-7.70) 10*3/uL Lymphocytes # (0.90-5.00) 10*3/uL Eosinophils # (0.04-0.35) 10*3/uL POC Glucose (mg/dL) 154 H 192 H 256 H (70-110) mg/dL 12/05/24 12/05/24 Range/Units 07:36 10:56 WBC 16.41 H (4.50-10.00) 10*3/uL MCHC 31.7 L (32.0-37.0) g/dL Immature Gran # 0.21 H (0.00-0.04) 10*3/uL Neutrophils # 15.12 H (1.80-7.70) 10*3/uL Lymphocytes # 0.45 L (0.90-5.00) 10*3/uL Eosinophils # 0.00 L (0.04-0.35) 10*3/uL POC Glucose (mg/dL) 201 H (70-110) mg/dL Microbiology - Last 24 Hours (Table) 12/04/24 08:46 Gram Stain - Preliminary Sputum Assessment and Plan Plan: Acute hypoxemic respiratory failure, secondary to acute exacerbation of COPD, possibly complicated by right lower lobe pneumonia, and fluid overload. Patient being followed by pulmonary Continue IV steroids, bronchodilators and antibiotics. Pulmonary embolism ruled out. CT angiogram of the chest reviewed. Chronic History of hyperlipidemia. History of hypertension. History of pulmonary hypertension. History of aortic aneurysm. All stable Resume meds. DVT prophylaxis Lovenox subcu Anticipate discharge: 2 to 3 days once oxygen requirement comes down. Anticipated disposition: Home
[2024-12-05 12:49] LABS: African American GFR (CKD) 85 (>60 ml/min/1.73 sqM); Anion Gap 10 mmol/L; Blood Urea Nitrogen 30 mg/dL (7-17); Calcium 10.1 mg/dL (8.4-10.2); Carbon Dioxide 27 mmol/L (22-30); Chloride 100 mmol/L (98-107); Glucose 170 mg/dL (74-99); Non-African American GFR(CKD) 74 (>60 ml/min/1.73 sqM); Potassium 3.8 mmol/L (3.5-5.1); Sodium 137 mmol/L (137-145)
[2024-12-05] MEDS: ENOXAPARIN 40 MG/0.4 ML SYRINGE SQ SCH (13:21)
[2024-12-05 16:26] LABS: Glucose,Whole Blood 177 mg/dL (70-110)
[2024-12-05 20:33] LABS: Glucose,Whole Blood 192 mg/dL (70-110)
[2024-12-06 05:56] LABS: Glucose,Whole Blood 170 mg/dL (70-110)
--- NOTE | 2024-12-06 10:03 | P.CRDCN ---
History of Present Illness History of present illness: HISTORY OF PRESENT ILLNESS: This is a 74-year-old female with a past medical history significant for pulmonary hypertension, COPD, home oxygen, hypertension, hyperlipidemia, mild CAD, and AAA. Patient follows in the office with Dr. Fontana. We have been asked to see the patient in consultation for elevated troponins. Patient examined at the bedside. Patient presented to the hospital with a chief complaint of shortness of breath. Patient was found to have acute COPD exacerbation and was started on IV steroids. She is currently on 15 L nasal cannula. She states that she wears 4 L nasal cannula at home [id number]. She continues to report shortness of breath this morning. Patient states that she used the commode this morning which is right next to her chair and it took her 8 minutes to get from the commode back to her chair due to dyspnea. She denies any chest pain or pressure. She is a former cigarette smoker and quit smoking in 2005. Telemetry reveals sinus tachycardia with heart rate around 115. DIAGNOSTICS: - EKG reveals sinus tachycardia with no signs of acute ischemia. - Chest xray right lower lobe infiltrate. Correlate for atelectasis or pneumonia. - Chest CTA: Negative for pulmonary embolism. Moderate to severe underlying emphysematous change with moderate parenchymal fibrosis. No suspicious acute pulmonary process. - Laboratory data: WBC 16.41. Hemoglobin 13.2. Platelet count 288. D-dimer 1.31. Sodium 137. Sodium 3.8. BUN 30. Creatinine 0.80. Troponin 0.046. 0.054. proBNP 15,900. - Current home cardiac medications include amlodipine 2.5 mg daily as needed, Aldactone 12.5 mg daily, metoprolol succinate 12.5 mg daily, Bumex 1 mg daily, atorvastatin 40 mg daily, aspirin 81 mg daily. - Most recent echocardiogram obtained in July 2024 revealed ejection fraction 55%, severe right ventricular dilation with RV to LV ratio of 1.95, mild to moderate right ventricular hypokinesis, pulmonary hypertension with RVSP 67, mild MR, moderate TR - Cardiac catheterization history: August 2024 revealing 30 to 40% mid to distal LAD, 40% OM1, 50% distal RCA stenosis and small aneurysmal portion of the mid RCA REVIEW OF SYSTEMS: At the time of my exam: CONSTITUTIONAL: Denies fever or chills. HEENT: Denies blurred vision, vision changes, or eye pain. Denies hemoptysis CARDIOVASCULAR: Denies chest pain. Denies orthopnea. Denies PND. Denies palpitations RESPIRATORY: Reports shortness of breath. GASTROINTESTINAL: Denies abdominal pain. Denies nausea or vomiting. HEMATOLOGIC: Denies bleeding disorders. GENITOURINARY: Denies any blood in urine. SKIN: Denies pruitis. Denies rash. PHYSICAL EXAM: VITAL SIGNS: Reviewed. GENERAL: Well-developed in no acute distress. HEENT: Head is normocephalic. Pupils are equal, round. Sclerae anicteric. Mucous membranes of the mouth are moist. Neck supple. No JVD or thyromegaly LUNGS: Respirations even and unlabored. Lungs essentially clear to auscultation bilaterally, diminished. HEART: Mildly tachycardic. Regular rate and rhythm. S1 and S2 heard. ABDOMEN: Soft. Nondistended. Nontender. EXTREMITIES: Normal range of motion. No clubbing or cyanosis. Peripheral pulses intact. No lower extremity edema NEUROLOGIC: Awake and alert. Oriented x 3. ASSESSMENT: Acute hypoxic respiratory failure Chronic hypoxic respiratory failure on home oxygen Possible right lower lobe pneumonia per x-ray, procalcitonin normal Acute COPD exacerbation Elevated troponins, type II MS secondary to oxygen supply and demand mismatch History of hypertension History of hyperlipidemia Mild CAD History of AAA Former nicotine dependence, patient quit smoking in 2005 PLAN: An acute coronary event has been ruled out No need to repeat echocardiogram as this was performed in July 2024 Continue current cardiac medications Continue telemetry monitoring Pulmonary following. Continue IV steroids per pulmonary service Patient is currently stable from a cardiac perspective Further recommendations pending patient course Nurse practitioner note has been reviewed by physician. Signing provider agrees with the documented findings, assessment, and plan of care documented by [employer] as a scribe. Past Medical History Past Medical History: COPD, Hyperlipidemia, Hypertension, Respiratory Disorder Additional Past Medical History / Comment(s): Aortic aneurysm. Pulmonary Hypertension History of Any Multi-Drug Resistant Organisms: None Reported Past Surgical History: Breast Surgery, Hysterectomy Additional Past Surgical History / Comment(s): Knee replacement. Wrist surgery. Cataract surgery Past Anesthesia/Blood Transfusion Reactions: No Reported Reaction Past Psychological History: Depression Smoking Status: Former smoker Past Alcohol Use History: None Reported Past Drug Use History: None Reported - Past Family History Mother Family Medical History: Cancer, Diabetes Mellitus Additional Family Medical History / Comment(s): from lung cancer Father Additional Family Medical History / Comment(s): from brain aneurysm Medications and Allergies Home Medications Medication Instructions Recorded Confirmed Type Aspirin EC [Ecotrin Low Dose] 81 mg PO DAILY 08/06/24 12/04/24 History Atorvastatin [Lipitor] 40 mg PO DAILY 08/06/24 12/04/24 History Cetirizine HCl [Zyrtec] 10 mg PO DAILY 08/06/24 12/04/24 History Dicyclomine [Bentyl] 10 mg PO TID 08/06/24 12/04/24 History Ergocalciferol [Vitamin D2 (1250 1,250 mcg PO MO 08/06/24 12/04/24 History Mcg = [id number] Iu)] Fluticasone/Umeclidin/Vilanter 1 puff INHALATION RT-DAILY 08/06/24 12/04/24 History [Trelegy Ellipta 200-62.5-25] Ipratropium-Albuterol Nebulize 3 ml INHALATION RT-QID PRN 08/06/24 12/04/24 History [Duoneb 0.5 mg-3 mg/3 ml Soln] Ipratropium/Albuter 20-100Mcg 1 puff INHALATION RT-QID 08/06/24 12/04/24 History [Combivent Respimat 20-100Mcg Inhaler] [place] 20mg 20 mg PO DAILY 08/06/24 12/04/24 History Sertraline [Zoloft] 50 mg PO DAILY 08/06/24 12/04/24 History amLODIPine [Norvasc] 2.5 mg PO DAILY PRN 08/06/24 12/04/24 History Acetaminophen Tab [Tylenol] 650 mg PO Q4HR PRN tab 08/13/24 12/04/24 Rx Pantoprazole [Protonix] 40 mg PO AC-BRKFST #30 tab 08/13/24 12/04/24 Rx Sildenafil [Revatio] 20 mg PO TID #90 tab 08/13/24 12/04/24 Rx guaiFENesin [Mucinex] 1,200 mg PO BID #30 tab 08/13/24 12/04/24 Rx Metoprolol Succinate (ER) [Toprol 12.5 mg PO DAILY #60 tab 09/25/24 12/04/24 Rx XL] Albuterol Sulfate [Ventolin HFA] 2 puff INHALATION RT-Q4H PRN 10/24/24 12/04/24 History predniSONE 10 mg PO DAILY 10/24/24 12/04/24 History Bumetanide [BUMEX] 1 mg PO DAILY #30 tab 10/28/24 12/04/24 Rx Spironolactone [Aldactone] 12.5 mg PO DAILY #30 tab 10/28/24 12/04/24 Rx Azithromycin [Zithromax] 500 mg PO DAILY 12/04/24 12/04/24 History Allergies Allergy/AdvReac Type Severity Reaction Status Date / Time levofloxacin [From Levaquin] Allergy Unknown Verified 12/04/24 10:53 tetracycline Allergy Unknown Verified 12/04/24 10:53 Physical Exam Vitals: Vital Signs Temp Pulse Pulse Resp BP Pulse Ox 12/06/24 03:07 98.1 F 101 H 18 113/75 91 L 12/06/24 01:58 104 H 16 12/05/24 23:06 104 H 18 128/83 96 12/05/24 20:48 98.5 F 113 H 22 139/87 91 L 12/05/24 20:16 100 12/05/24 20:09 100 12/05/24 20:08 100 12/05/24 20:02 101 H 12/05/24 20:00 113 H 12/05/24 16:00 120 H 139/91 89 L 12/05/24 15:44 108 H 12/05/24 15:23 112 H 12/05/24 14:00 119 H 20 12/05/24 12:00 119 H 92 L 12/05/24 11:57 108 H 12/05/24 11:38 108 H 12/05/24 09:00 116 H 12/05/24 08:50 112 H 12/05/24 08:49 112 H 12/05/24 08:35 113 H 91 L 12/05/24 08:00 97.9 F 111 H 20 129/82 91 L Intake and Output 12/05/24 12/06/24 12/06/24 22:59 06:59 14:59 Intake Total 100 Balance 100 Intake: Oral 100 Other: Voiding Method Bedside Commode Bedside Commode # Voids 1 0 Weight 62.6 kg Results 12/05/24 07:36 12/05/24 12:01 Cardiac Enzymes 12/05/24 Range/Units 12:01 Troponin I 0.054 H* (0.000-0.034) ng/mL Comprehensive Metabolic Panel 12/05/24 Range/Units 12:01 Sodium 137 (137-145) mmol/L Potassium 3.8 (3.5-5.1) mmol/L Chloride 100 (98-107) mmol/L Carbon Dioxide 27 (22-30) mmol/L BUN 30 H (7-17) mg/dL Creatinine 0.80 (0.52-1.04) mg/dL Glucose 170 H (74-99) mg/dL Calcium 10.1 (8.4-10.2) mg/dL Current Medications Generic Name Dose Route Start Last Admin Trade Name Freq PRN Reason Stop Dose Admin Acetaminophen 650 mg 12/04/24 17:39 12/05/24 13:23 Acetaminophen Tab 325 Mg Tab PO 650 mg Q4HR PRN Administration Fever and/or Mild Pain Albuterol/Ipratropium 3 ml 12/05/24 08:00 12/05/24 20:01 Ipratropium-Albuterol 3 Ml Neb INHALATION 3 ml RT-QID ILA Administration Amlodipine Besylate 2.5 mg 12/04/24 17:39 Amlodipine 2.5 Mg Tab PO DAILY PRN high bp Aspirin 81 mg 12/04/24 17:45 12/05/24 08:56 Aspirin 81 Mg PO 81 mg DAILY ILA Administration Atorvastatin Calcium 40 mg 12/04/24 17:45 12/05/24 08:56 Atorvastatin 40 Mg Tab PO 40 mg DAILY ILA Administration Budesonide 1 mg 12/04/24 20:00 12/05/24 20:02 Budesonide 1 Mg/2 Ml Nebu INHALATION 1 mg RT-BID ILA Administration Bumetanide 1 mg 12/05/24 09:00 12/05/24 08:57 Bumetanide 1 Mg Tab PO 1 mg DAILY ILA Administration Dextrose/Water 25 ml 12/04/24 10:49 Dextrose 50% Syringe 50 Ml IVP PER PROTOCOL PRN Hypoglycemia Protocol Dextrose/Water 50 ml 12/04/24 10:49 Dextrose 50% Syringe 50 Ml IVP PER PROTOCOL PRN Hypoglycemia Protocol Dicyclomine HCl 10 mg 12/04/24 22:00 12/05/24 20:59 Dicyclomine 10 Mg Cap PO 10 mg TID ILA Administration Enoxaparin Sodium 40 mg 12/05/24 11:45 12/05/24 13:21 Enoxaparin 40 Mg/0.4 Ml Syringe SQ 40 mg DAILY ILA Administration Ergocalciferol 1,250 mcg 12/06/24 17:39 Ergocalciferol 1,250 Mcg (50,000 Iu) Capsule PO MO IAL Formoterol Fumarate 20 mcg 12/04/24 20:00 12/05/24 20:01 Formoterol Fumarate 20 Mcg/2 Ml Nebu INHALATION 20 mcg RT-BID ILA Administration Guaifenesin 1,200 mg 12/04/24 21:00 12/05/24 20:59 Guaifenesin 600 Mg Tablet.Er PO 1,200 mg BID ILA Administration Insulin Human Lispro 0 unit 12/04/24 12:30 12/06/24 06:25 Insulin Lispro (Humalog) 100 Unit/Ml 10 Ml Vl SQ 1 unit ACHS ILA Administration Protocol Loratadine 10 mg 12/04/24 17:45 12/05/24 08:56 Loratadine 10 Mg Tab PO 10 mg DAILY ILA Administration Methylprednisolone Sodium Succinate 60 mg 12/04/24 12:00 12/06/24 05:11 Methylprednisolone Sod Succi 125 Mg/2 Ml Vial IV 60 mg Q6HR ILA Administration Miscellaneous Information 1 each 12/04/24 00:17 Pneumonia Protocol Utilized 1 Each Misc PO ONCE PRN Per Protocol Naloxone HCl 0.2 mg 12/04/24 07:12 Naloxone 0.4 Mg/Ml 1 Ml Vial IV Q2M PRN Opioid Reversal Pantoprazole Sodium 40 mg 12/04/24 17:45 12/06/24 06:25 Pantoprazole 40 Mg Tablet PO 40 mg AC-BRKFST ILA Administration Sertraline HCl 50 mg 12/04/24 17:45 12/05/24 08:56 Sertraline 50 Mg Tab PO 50 mg DAILY ILA Administration Spironolactone 12.5 mg 12/05/24 09:00 12/05/24 08:56 Spironolactone 25 Mg Tab PO 12.5 mg DAILY ILA Administration Intake and Output 12/05/24 12/06/24 12/06/24 22:59 06:59 14:59 Intake Total 100 Balance 100 Intake: Oral 100 Other: Voiding Method Bedside Commode Bedside Commode # Voids 1 0 Weight 62.6 kg 12/05/24 07:36 12/05/24 12:01
[2024-12-06] MEDS: BUMETANIDE 0.25 MG/ML 4 ML VIAL IVP SCH (11:01)
[2024-12-06] MEDS: metOLazone 2.5 MG TAB PO SCH (11:02)
[2024-12-06 11:36] LABS: Glucose,Whole Blood 205 mg/dL (70-110)
--- NOTE | 2024-12-06 13:11 | P.PN ---
Subjective Progress Note Date: 12/06/24 On 12/06/2024, the patient is being seen for ongoing difficulties with shortness of breath and hypoxemia. Earlier this morning, the patient was on 15 L of oxygen by nasal cannula and her pulse ox was around 92 to 93%. Her CAT scan of the chest from this current admission was noted. This was a CT of the chest that showed no evidence of any pulmonary embolism. It showed background emphysema there was moderate to severe along with some ongoing fibrosis. No acute cardiopulmonary process noted. The patient also has a aneurysm of the abdominal aorta and a 1.4 cm gallstone. For now, the patient is on DuoNeb updrafts [id number], Aldactone and oral Bumex. The patient is also on Perforomist and Pulmicort neb regimen twice a day and IV Solu-Medrol 60 mg every 6 hours. Objective - Vital Signs Vital signs: Vital Signs Temp 98.1 F 12/06/24 03:07 Pulse 100 12/06/24 08:46 Resp 18 12/06/24 03:07 BP 113/75 12/06/24 03:07 Pulse Ox 91 L 12/06/24 03:07 FiO2 Intake & Output 12/05/24 12/06/24 12/06/24 18:59 06:59 18:59 Intake Total 420 240 Balance 420 240 Weight 62.6 kg Intake: Oral 420 240 Other: Voiding Method Bedside Commode Bedside Commode # Voids 0 - Exam The patient appeared well nourished and normally developed. Vital signs as documented. No signs of any acute respiratory distress. The patient is currently on 15 L of oxygen by nasal cannula Head exam is unremarkable. No scleral icterus or corneal arcus noted. Neck is without jugular venous distension, thyromegaly, or carotid bruits. Carotid upstrokes are brisk bilaterally. Lungs are diminished bilateral lung with coarse crackles lung base bilaterally. Cardiac exam reveals the PMI to be normally sized and situated. Rhythm is regular. First and second heart sounds normal. No murmurs, rubs or gallops. Abdominal exam reveals normal bowel sounds, no masses, no organomegaly and no aortic enlargement. Extremities are nonedematous and both femoral and pedal pulses are normal. Examination of the skin revealed no evidence of significant rashes, suspicious appearing nevi or other concerning lesions. Neurologically, the patient is awake and alert and the patient does not have any focal neurological deficit. Cranial nerves are essentially intact. - Labs CBC & Chem 7: 12/05/24 07:36 12/05/24 12:01 Labs: Abnormal Lab Results - Last 24 Hours (Table) 12/05/24 12/05/24 12/05/24 Range/Units 10:56 12:01 12:01 BUN 30 H (7-17) mg/dL Glucose 170 H (74-99) mg/dL POC Glucose (mg/dL) 201 H (70-110) mg/dL Troponin I 0.054 H* (0.000-0.034) ng/mL 12/05/24 12/05/24 12/06/24 Range/Units 16:25 20:32 05:54 BUN (7-17) mg/dL Glucose (74-99) mg/dL POC Glucose (mg/dL) 177 H 192 H 170 H (70-110) mg/dL Troponin I (0.000-0.034) ng/mL Microbiology - Last 24 Hours (Table) 12/04/24 08:46 Gram Stain - Final Sputum Sputum Culture - Final 12/04/24 00:27 Blood Culture - Preliminary Blood Assessment and Plan Plan: Acute on chronic hypoxemic respiratory failure, currently on 15 L/min nasal cannula, chest x-ray which does not show any acute cardiopulmonary process, chronic parenchymal changes noted bilaterally. No focal airspace opacities, pleural effusions, pneumothoraces. CTA of the chest that showed no evidence of any pulmonary embolism. The patient has moderate to severe emphysematous changes along with some fibrotic changes bilaterally. As such, the patient hypoxemia is multifactorial. She does have also significant pulm hypertension and possibility of fluid overload cannot be completely excluded as the patient had elevated proBNP level at time of admission. Acute COPD exacerbation, improving Acute on chronic hypoxic respiratory failure, currently on 4 L of O2 nasal cannula Acute on chronic dyspnea Acute COPD exacerbation and frequent COPD exacerabations for the same and her last admission was in 09/21/24 Chronic oxygen dependence, normally maintained on 4 L/min nasal cannula Elevated troponins, did undergo a right and left heart catheterization yesterday September 23, 2024, to be treated medically, and the patient had a 30 to 40% mid to distal LAD, 40% OM1, 50% distal RCA and small aneurysmal portion of the mid RCA. Patient was offered medical therapy. Pulmonary hypertension, suspect group 3, elevated BroBNP, echocardiogram from 08/07/2024 showed a preserved LV function, nevertheless, the patient had severe pulmonary hypertension. RV was severely dilated and estimated PA pressure was 67. She had also moderate TR. Recent hospitalization for RSV tracheobronchitis on 08/06/24 Infrarenal abdominal aortic aneurysm, 4.7 cm follows with vascular surgery outpatient Systemic hypertension Peripheral vascular disease and carotid artery stenosis Former tobacco smoker Anxiety/depression Plan: Clinically stable and overall respiratory status seems to be back to her baseline Will titrate oxygen flow to maintain oxygen saturation above 90%, currently on 15 liters O2 nasal cannula Continue DuoNeb nebulizer treatments [id number] Continue Perforomist and Pulmicort neb regimen twice a day IV Solu-Medrol Intensified diuresis and give the patient Bumex 1 mg IV every 12 hours and add Zaroxolyn 2.5 mg p.o. twice a day Continue Aldactone Sildenafil was added by cardiology during previous admissions for chronic pulm hypertension. The role of this medication and group 3 pulmonary hypertension is clear. Resume the rest of the home medications We will continue to follow Time with Patient: Greater than 30
--- NOTE | 2024-12-06 13:32 | P.PN ---
Subjective Progress Note Date: 12/06/24 74 year old F with PMH of COPD on 4L home O2, pulmonary hypertension, AAA presented to the ED for progressively worsening shortness of breath. Vitals on admission T 97.7, HR 108, RR 24, BP 123/85, O2 saturation of 92% on 4 L nasal cannula. EKG showed atrial tachycardia with PVCs and incomplete RBBB rate of 118 and QTc of 441 ms CXR showed RLL infiltrate. CTA chest showed no PE, emphysema changes, AAA. Labs on admission showed WBC 22.98, D-Dmer 1.31, Na 136, K 3.3, Cl 95, BUN 23, glu 157, Lactic acid 5.3, AST 46, BNP 97754. Pro-damaso 0.36. Trop 0.046, 0.054. COVID, RSV, Flu neg. Legionella Ag neg. Patient was admitted for acute on chronic hypoxic respiratory failure secondary to COPD exacerbation. She was started on bronchodilators and SoluMedrol. Pulmonary was consulted. 12/06 Patient was seen and examined. Currently on 15L HFNC saturating 89%. No complaints. SOB with exertion. No new labs done today. General: non toxic, no distress, appears at stated age Derm: warm, dry Head: atraumatic, normocephalic, symmetric Eyes: EOMI, no lid lag, anicteric sclera Mouth: no lip lesion, mucus membranes moist Cardiovascular: S1S2 reg, no murmur Lungs: Decreased BS bilateral, no rhonchi, no rales , no accessory muscle use Ext: no gross muscle atrophy, no edema, no contractures Neuro: no focal neuro deficits Psych: Alert, oriented, appropriate affect Based on my assessment of this patient, this patient meets a high complexity level of care. Acute on chronic hypoxic respiratory failure currently on 15 L with home O2 of 4 L: DuoNeb QID schduled. Pulmicort 1 mg INH BID. Performist 20 mcg INH BID. Mucinex 1200 mg PO BID. Solumedrol 60 mg IV Q6H. Telemetry monitoring. Pulmonary on board. Acute exacerbation of COPD: Management as above. Acute exacerbation of systolic CHF: Bumex 1 mg IV BID. Monitor daily e-lytes and renal function. Metolazone as below. Aldactone as below. Cardiology on board. Troponin elevation likely type II NSTEMI with history of CAD: ASA 81 mg PO QD. Lipitor 40 mg PO QD. Metoprolol on hold. Would benefit from ACEi. Cardiology on board. Group 3 pulmonary hypertension HTN: Aldactone 12.5 mg PO QD. Metolazone 2.5 mg PO QD. Amlodipine 2.5 mg PO QD. Metoprolol on hold. Depression: Sertraline 50 mg PO QD. AAA: Outpatient follow up for routine maintenance. CODE STATUS: FULL CODE DVT Prophylaxis: Lovenox SQ GI Prophylaxis: Protonix PO Designated medical POA if patient is not able to make medical decisions for themselves: I have reviewed the following excellence consultant notes: Cardiology, Pulmonary. I have reviewed the results of the following tests: I have ordered the following tests: BMP and Mag in the AM. I have discussed the care of this patient with the following independent historian: I have independently interpreted the following test below: I have discussed the management of this patient with the following physician: Objective - Vital Signs Vital signs: Vital Signs Temp 98.1 F 12/06/24 03:07 Pulse 104 H 12/06/24 11:33 Resp 18 12/06/24 08:20 BP 133/87 12/06/24 08:20 Pulse Ox 88 L 12/06/24 08:20 FiO2 Intake & Output 12/05/24 12/06/24 12/06/24 18:59 06:59 18:59 Intake Total 420 240 Balance 420 240 Weight 62.6 kg Intake: Oral 420 240 Other: Voiding Method Bedside Commode Bedside Commode Bedside Commode # Voids 0 - Labs CBC & Chem 7: 12/05/24 07:36 12/05/24 12:01 Labs: Abnormal Lab Results - Last 24 Hours (Table) 12/05/24 12/05/24 12/05/24 Range/Units 12:01 16:25 20:32 POC Glucose (mg/dL) 177 H 192 H (70-110) mg/dL Troponin I 0.054 H* (0.000-0.034) ng/mL 12/06/24 12/06/24 Range/Units 05:54 11:32 POC Glucose (mg/dL) 170 H 205 H (70-110) mg/dL Troponin I (0.000-0.034) ng/mL Microbiology - Last 24 Hours (Table) 12/04/24 00:27 Blood Culture - Preliminary Blood 12/04/24 08:46 Gram Stain - Final Sputum Sputum Culture - Final
[2024-12-06 17:12] LABS: Glucose,Whole Blood 232 mg/dL (70-110)
[2024-12-06] MEDS: ERGOCALCIFEROL 1,250 MCG (50,000 IU) CAPSULE PO SCH (17:25)
[2024-12-06 20:05] LABS: Glucose,Whole Blood 279 mg/dL (70-110)
[2024-12-07 06:16] LABS: Glucose,Whole Blood 208 mg/dL (70-110)
[2024-12-07 08:15] LABS: African American GFR (CKD) 80 (>60 ml/min/1.73 sqM); Anion Gap 11 mmol/L; Blood Urea Nitrogen 39 mg/dL (7-17); Calcium 10.2 mg/dL (8.4-10.2); Carbon Dioxide 29 mmol/L (22-30); Chloride 93 mmol/L (98-107); Glucose 206 mg/dL (74-99); Magnesium 1.7 mg/dL (1.6-2.3); Non-African American GFR(CKD) 70 (>60 ml/min/1.73 sqM); Potassium 3.3 mmol/L (3.5-5.1); Sodium 133 mmol/L (137-145)
--- NOTE | 2024-12-07 10:44 | P.PN ---
Subjective Progress Note Date: 12/07/24 On 12/06/2024, the patient is being seen for ongoing difficulties with shortness of breath and hypoxemia. Earlier this morning, the patient was on 15 L of oxygen by nasal cannula and her pulse ox was around 92 to 93%. Her CAT scan of the chest from this current admission was noted. This was a CT of the chest that showed no evidence of any pulmonary embolism. It showed background emphysema there was moderate to severe along with some ongoing fibrosis. No acute cardiopulmonary process noted. The patient also has a aneurysm of the abdominal aorta and a 1.4 cm gallstone. For now, the patient is on DuoNeb updrafts [id number], Aldactone and oral Bumex. The patient is also on Perforomist and Pulmicort neb regimen twice a day and IV Solu-Medrol 60 mg every 6 hours. 12/07/2024, the patient is feeling better. Oxygenation is improved and the patient is currently down to 6 L of oxygen by nasal cannula. Noted the patient was given a combination of Bumex and Zaroxolyn and the patient has produced excellent urine output. The patient has been more than 2 L negative fluid balance over the past 24 hours. Potassium level is at 3.3 it is to be replaced. Sodium levels at 133, BUN 29 with a creatinine of 0.8. She remains on IV Bumex 1 mg every 12 hours and she is also on Zaroxolyn 2.5 mg p.o. daily and Aldactone. No other new complaints otherwise for now. Objective - Vital Signs Vital signs: Vital Signs Temp 97.9 F 12/07/24 03:03 Pulse 116 H 12/07/24 08:57 Resp 20 12/07/24 03:03 BP 117/81 12/07/24 03:03 Pulse Ox 85 L 12/07/24 03:03 FiO2 Intake & Output 12/06/24 12/07/24 12/07/24 18:59 06:59 18:59 Intake Total 598 Output Total 1900 Balance 598 -1900 Weight 60 kg Intake: Oral 598 Output: Urine 1900 Other: Voiding Method Bedside Commode Bedside Commode # Voids 3 1 - Exam The patient appeared well nourished and normally developed. Vital signs as documented. No signs of any acute respiratory distress. The patient is currently on 6 L of oxygen by nasal cannula Head exam is unremarkable. No scleral icterus or corneal arcus noted. Neck is without jugular venous distension, thyromegaly, or carotid bruits. Carotid upstrokes are brisk bilaterally. Lungs are diminished bilateral lung with coarse crackles lung base bilaterally. Cardiac exam reveals the PMI to be normally sized and situated. Rhythm is regular. First and second heart sounds normal. No murmurs, rubs or gallops. Abdominal exam reveals normal bowel sounds, no masses, no organomegaly and no aortic enlargement. Extremities are nonedematous and both femoral and pedal pulses are normal. Examination of the skin revealed no evidence of significant rashes, suspicious appearing nevi or other concerning lesions. Neurologically, the patient is awake and alert and the patient does not have any focal neurological deficit. Cranial nerves are essentially intact. - Labs CBC & Chem 7: 12/05/24 07:36 12/07/24 07:29 Labs: Abnormal Lab Results - Last 24 Hours (Table) 12/06/24 12/06/24 12/06/24 Range/Units 11:32 17:10 20:04 Sodium (137-145) mmol/L Potassium (3.5-5.1) mmol/L Chloride (98-107) mmol/L BUN (7-17) mg/dL Glucose (74-99) mg/dL POC Glucose (mg/dL) 205 H 232 H 279 H (70-110) mg/dL 12/07/24 12/07/24 Range/Units 06:15 07:29 Sodium 133 L (137-145) mmol/L Potassium 3.3 L (3.5-5.1) mmol/L Chloride 93 L (98-107) mmol/L BUN 39 H (7-17) mg/dL Glucose 206 H (74-99) mg/dL POC Glucose (mg/dL) 208 H (70-110) mg/dL Microbiology - Last 24 Hours (Table) 12/04/24 00:27 Blood Culture - Preliminary Blood 12/04/24 08:46 Gram Stain - Final Sputum Sputum Culture - Final Assessment and Plan Plan: Acute on chronic hypoxemic respiratory failure, currently on 6 L/min nasal stephanie ned, chest x-ray which does not show any acute cardiopulmonary process, chronic parenchymal changes noted bilaterally. No focal airspace opacities, pleural effusions, pneumothoraces. CTA of the chest that showed no evidence of any pulmonary embolism. The patient has moderate to severe emphysematous changes along with some fibrotic changes bilaterally. As such, the patient hypoxemia is multifactorial. She does have also significant pulm hypertension and possibility of fluid overload cannot be completely excluded as the patient had elevated proBNP level at time of admission. The patient responded nicely to diuretics and the patient remains in negative fluid balance. Potassium level needs to be replaced. Acute COPD exacerbation, improving Acute on chronic hypoxic respiratory failure, currently on 4 L of O2 nasal cannula Acute on chronic dyspnea Acute COPD exacerbation and frequent COPD exacerabations for the same and her last admission was in 09/21/24 Chronic oxygen dependence, normally maintained on 4 L/min nasal cannula Elevated troponins, did undergo a right and left heart catheterization yesterday September 23, 2024, to be treated medically, and the patient had a 30 to 40% mid to distal LAD, 40% OM1, 50% distal RCA and small aneurysmal portion of the mid RCA. Patient was offered medical therapy. Pulmonary hypertension, suspect group 3, elevated BroBNP, echocardiogram from 08/07/2024 showed a preserved LV function, nevertheless, the patient had severe pulmonary hypertension. RV was severely dilated and estimated PA pressure was 67. She had also moderate TR. Recent hospitalization for RSV tracheobronchitis on 08/06/24 Infrarenal abdominal aortic aneurysm, 4.7 cm follows with vascular surgery outpatient Systemic hypertension Peripheral vascular disease and carotid artery stenosis Former tobacco smoker Anxiety/depression Plan: Clinically stable and overall respiratory status seems to be back to her baseline Will titrate oxygen flow to maintain oxygen saturation above 90%, currently on 6 L of O2 nasal cannula Replace K Continue DuoNeb nebulizer treatments [id number] Continue Perforomist and Pulmicort neb regimen twice a day IV Solu-Medrol Bumex 1 mg IV every 12 hours and add Zaroxolyn 2.5 mg p.o. daily and this will be continued for another 24 hours Continue Aldactone Sildenafil was added by cardiology during previous admissions for chronic pulm hypertension. The role of this medication and group 3 pulmonary hypertension is clear. Resume the rest of the home medications We will continue to follow Time with Patient: Greater than 30
--- NOTE | 2024-12-07 11:20 | P.PN ---
Subjective Progress Note Date: 12/07/24 74 year old F with PMH of COPD on 4L home O2, pulmonary hypertension, AAA presented to the ED for progressively worsening shortness of breath. Vitals on admission T 97.7, HR 108, RR 24, BP 123/85, O2 saturation of 92% on 4 L nasal cannula. EKG showed atrial tachycardia with PVCs and incomplete RBBB rate of 118 and QTc of 441 ms CXR showed RLL infiltrate. CTA chest showed no PE, emphysema changes, AAA. Labs on admission showed WBC 22.98, D-Dmer 1.31, Na 136, K 3.3, Cl 95, BUN 23, glu 157, Lactic acid 5.3, AST 46, BNP 93983. Pro-damaso 0.36. Trop 0.046, 0.054. COVID, RSV, Flu neg. Legionella Ag neg. Patient was admitted for acute on chronic hypoxic respiratory failure secondary to COPD exacerbation. She was started on bronchodilators and SoluMedrol. Pulmonary was consulted. 12/06 Patient was seen and examined. Currently on 15L HFNC saturating 89%. No complaints. SOB with exertion. No new labs done today. 12/07 Patient was seen and examined. Weaned down to 6L HFNC this morning however dropped to the low 70s with ambulation to the bedside commode. Took 10 minutes to recover. Maintained on Bumex 1 mg IV BID. BMP shows Na 133, K 3.3, Cl 93, BUN 39, glu 206. Mag 1.7. General: non toxic, no distress, appears at stated age Derm: warm, dry Head: atraumatic, normocephalic, symmetric Eyes: EOMI, no lid lag, anicteric sclera Mouth: no lip lesion, mucus membranes moist Cardiovascular: S1S2 reg, no murmur Lungs: Decreased BS bilateral, no rhonchi, no rales , no accessory muscle use Ext: no gross muscle atrophy, no edema, no contractures Neuro: no focal neuro deficits Psych: Alert, oriented, appropriate affect Based on my assessment of this patient, this patient meets a high complexity l evel of care. Acute on chronic hypoxic respiratory failure currently on 6 L with home O2 of 4 L: DuoNeb QID schduled. Pulmicort 1 mg INH BID. Performist 20 mcg INH BID. Mucinex 1200 mg PO BID. Solumedrol 60 mg IV Q6H. Telemetry monitoring. Pulmonary on board. Acute exacerbation of COPD: Management as above. Acute exacerbation of systolic CHF: Echo 07/2024 shows EF 55% with G1DD. Reduce Bumex from 1 mg IV BID to QD. Monitor daily e-lytes and renal function. Metolazone as below. Aldactone as below. Cardiology on board. Troponin elevation likely type II NSTEMI with history of CAD: ASA 81 mg PO QD. Lipitor 40 mg PO QD. Metoprolol on hold. Would benefit from ACEi. Cardiology on board. Hypokalemia, Hyponatremia and prerenal azotemia likely due to forced diuresis: KCl 40 meq PO x 1 today. Group 3 pulmonary hypertension HTN: Aldactone 12.5 mg PO QD. Metolazone 2.5 mg PO QD. Amlodipine 2.5 mg PO QD. Metoprolol on hold. Depression: Sertraline 50 mg PO QD. AAA: Outpatient follow up for routine maintenance. CODE STATUS: FULL CODE DVT Prophylaxis: Lovenox SQ GI Prophylaxis: Protonix PO Designated medical POA if patient is not able to make medical decisions for themselves: I have reviewed the following education consultant notes: Pulmonary. I have reviewed the results of the following tests: BMP and Mag. Echo. I have ordered the following tests: BMP and Mag in the AM. I have discussed the care of this patient with the following independent historian: STEPHANIE. I have independently interpreted the following test below: I have discussed the management of this patient with the following physician: Objective - Vital Signs Vital signs: Vital Signs Temp 97.9 F 12/07/24 03:03 Pulse 116 H 12/07/24 08:57 Resp 20 12/07/24 03:03 BP 117/81 12/07/24 03:03 Pulse Ox 85 L 12/07/24 03:03 FiO2 Intake & Output 12/06/24 12/07/24 12/07/24 18:59 06:59 18:59 Intake Total 598 200 Output Total 1900 780 Balance 598 -1900 -580 Weight 60 kg Intake: Oral 598 200 Output: Urine 1900 780 Other: Voiding Method Bedside Commode Bedside Commode # Voids 3 1 - Labs CBC & Chem 7: 12/05/24 07:36 12/07/24 07:29 Labs: Abnormal Lab Results - Last 24 Hours (Table) 12/06/24 12/06/24 12/06/24 Range/Units 11:32 17:10 20:04 Sodium (137-145) mmol/L Potassium (3.5-5.1) mmol/L Chloride (98-107) mmol/L BUN (7-17) mg/dL Glucose (74-99) mg/dL POC Glucose (mg/dL) 205 H 232 H 279 H (70-110) mg/dL 12/07/24 12/07/24 Range/Units 06:15 07:29 Sodium 133 L (137-145) mmol/L Potassium 3.3 L (3.5-5.1) mmol/L Chloride 93 L (98-107) mmol/L BUN 39 H (7-17) mg/dL Glucose 206 H (74-99) mg/dL POC Glucose (mg/dL) 208 H (70-110) mg/dL Microbiology - Last 24 Hours (Table) 12/04/24 00:27 Blood Culture - Preliminary Blood 12/04/24 08:46 Gram Stain - Final Sputum Sputum Culture - Final
[2024-12-07 11:25] LABS: Glucose,Whole Blood 177 mg/dL (70-110)
--- NOTE | 2024-12-07 11:58 | P.PN ---
Subjective HISTORY OF PRESENT ILLNESS: This is a 74-year-old female with a past medical history significant for pulmonary hypertension, COPD, home oxygen, hypertension, hyperlipidemia, mild CAD, and AAA. Patient follows in the office with Dr. Fontana. We have been asked to see the patient in consultation for elevated troponins. Patient examined at the bedside. Patient presented to the hospital with a chief complaint of shortness of breath. Patient was found to have acute COPD exacerbation and was started on IV steroids. She is currently on 15 L nasal cannula. She states that she wears 4 L nasal cannula at home [id number]. She continues to report shortness of breath this morning. Patient states that she used the commode this morning which is right next to her chair and it took her 8 minutes to get from the commode back to her chair due to dyspnea. She denies any chest pain or pressure. She is a former cigarette smoker and quit smoking in 2005. Telemetry reveals sinus tachycardia with heart rate around 115. DIAGNOSTICS: - EKG reveals sinus tachycardia with no signs of acute ischemia. - Chest xray right lower lobe infiltrate. Correlate for atelectasis or pneumonia. - Chest CTA: Negative for pulmonary embolism. Moderate to severe underlying emphysematous change with moderate parenchymal fibrosis. No suspicious acute p ulmonary process. - Laboratory data: WBC 16.41. Hemoglobin 13.2. Platelet count 288. D-dimer 1.31. Sodium 137. Sodium 3.8. BUN 30. Creatinine 0.80. Troponin 0.046. 0.054. proBNP 15,900. - Current home cardiac medications include amlodipine 2.5 mg daily as needed, Aldactone 12.5 mg daily, metoprolol succinate 12.5 mg daily, Bumex 1 mg daily, atorvastatin 40 mg daily, aspirin 81 mg daily. - Most recent echocardiogram obtained in July 2024 revealed ejection fraction 55%, severe right ventricular dilation with RV to LV ratio of 1.95, mild to moderate right ventricular hypokinesis, pulmonary hypertension with RVSP 67, mild MR, moderate TR - Cardiac catheterization history: August 2024 revealing 30 to 40% mid to distal LAD, 40% OM1, 50% distal RCA stenosis and small aneurysmal portion of the mid RCA 12/07/2024 Patient examined this morning. She is sitting up in the chair. Patient denies any chest pain or pressure. She reports improvement in her shortness of breath. Patient's oxygen requirements have decreased. She is currently on 6 L nasal cannula. Patient was started on IV Bumex yesterday per pulmonary medicine. Urine output over the last 24 hours is 1900 cc. PHYSICAL EXAM: VITAL SIGNS: Reviewed. GENERAL: Well-developed in no acute distress. HEENT: Head is normocephalic. Pupils are equal, round. Sclerae anicteric. Mucous membranes of the mouth are moist. Neck supple. No JVD or thyromegaly LUNGS: Respirations even and unlabored. Lungs with crackles at the left base HEART: Mildly tachycardic. Regular rate and rhythm. S1 and S2 heard. ABDOMEN: Soft. Nondistended. Nontender. EXTREMITIES: Normal range of motion. No clubbing or cyanosis. Peripheral pulse s intact. No lower extremity edema NEUROLOGIC: Awake and alert. Oriented x 3. ASSESSMENT: Acute hypoxic respiratory failure Chronic hypoxic respiratory failure on home oxygen Possible right lower lobe pneumonia per x-ray, procalcitonin normal Acute COPD exacerbation Severe pulmonary hypertension Elevated troponins, type II DE secondary to oxygen supply and demand mismatch History of hypertension History of hyperlipidemia Mild CAD History of AAA Former nicotine dependence, patient quit smoking in 2005 PLAN: An acute coronary event has been ruled out No need to repeat echocardiogram as this was performed in July 2024 Continue IV Bumex for additional 24 hours. Anticipate transition to oral diuretics tomorrow. Continue current cardiac medications Continue telemetry monitoring Pulmonary following. Continue IV steroids per pulmonary service Further recommendations pending patient course Nurse practitioner note has been reviewed by physician. Signing provider agrees with the documented findings, assessment, and plan of care documented by EQUIPMENT WORKER as a scribe. Objective - Vital Signs Vital signs: Vital Signs Temp 97.9 F 12/07/24 03:03 Pulse 124 H 12/07/24 11:43 Resp 20 12/07/24 03:03 BP 117/81 12/07/24 03:03 Pulse Ox 85 L 12/07/24 03:03 FiO2 Intake & Output 12/06/24 12/07/24 12/07/24 18:59 06:59 18:59 Intake Total 598 200 Output Total 1900 780 Balance 598 -1900 -580 Weight 60 kg Intake: Oral 598 200 Output: Urine 1900 780 Other: Voiding Method Bedside Commode Bedside Commode # Voids 3 1 - Labs CBC & Chem 7: 12/05/24 07:36 12/07/24 07:29 Labs: Abnormal Lab Results - Last 24 Hours (Table) 12/06/24 12/06/24 12/07/24 Range/Units 17:10 20:04 06:15 Sodium (137-145) mmol/L Potassium (3.5-5.1) mmol/L Chloride (98-107) mmol/L BUN (7-17) mg/dL Glucose (74-99) mg/dL POC Glucose (mg/dL) 232 H 279 H 208 H (70-110) mg/dL 12/07/24 12/07/24 Range/Units 07:29 11:23 Sodium 133 L (137-145) mmol/L Potassium 3.3 L (3.5-5.1) mmol/L Chloride 93 L (98-107) mmol/L BUN 39 H (7-17) mg/dL Glucose 206 H (74-99) mg/dL POC Glucose (mg/dL) 177 H (70-110) mg/dL Microbiology - Last 24 Hours (Table) 12/04/24 00:27 Blood Culture - Preliminary Blood
[2024-12-07] MEDS: METOPROLOL SUCCINATE (ER) 25 MG TAB.ER.24H PO SCH (12:37)
[2024-12-07] MEDS: POTASSIUM CHLORIDE ER 20 MEQ TAB.ER PO STA (12:37)
[2024-12-07 16:12] LABS: Glucose,Whole Blood 188 mg/dL (70-110)
[2024-12-07 20:07] LABS: Glucose,Whole Blood 346 mg/dL (70-110)
[2024-12-07 21:02] LABS: Glucose,Whole Blood 281 mg/dL (70-110)
[2024-12-08 05:51] LABS: Glucose,Whole Blood 206 mg/dL (70-110)
[2024-12-08 07:09] LABS: African American GFR (CKD) 68 (>60 ml/min/1.73 sqM); Anion Gap 11 mmol/L; Blood Urea Nitrogen 49 mg/dL (7-17); Calcium 10.2 mg/dL (8.4-10.2); Carbon Dioxide 31 mmol/L (22-30); Chloride 91 mmol/L (98-107); Glucose 200 mg/dL (74-99); Magnesium 1.9 mg/dL (1.6-2.3); Non-African American GFR(CKD) 59 (>60 ml/min/1.73 sqM); Potassium 3.3 mmol/L (3.5-5.1); Sodium 133 mmol/L (137-145)
[2024-12-08] MEDS: BUMETANIDE 0.25 MG/ML 4 ML VIAL IVP SCH (09:31)
[2024-12-08 11:06] LABS: Glucose,Whole Blood 176 mg/dL (70-110)
--- NOTE | 2024-12-08 12:01 | P.PN ---
Subjective HISTORY OF PRESENT ILLNESS: This is a 74-year-old female with a past medical history significant for pulmonary hypertension, COPD, home oxygen, hypertension, hyperlipidemia, mild CAD, and AAA. Patient follows in the office with Dr. Fontana. We have been asked to see the patient in consultation for elevated troponins. Patient examined at the bedside. Patient presented to the hospital with a chief complaint of shortness of breath. Patient was found to have acute COPD exacerbation and was started on IV steroids. She is currently on 15 L nasal cannula. She states that she wears 4 L nasal cannula at home [id number]. She continues to report shortness of breath this morning. Patient states that she used the commode this morning which is right next to her chair and it took her 8 minutes to get from the commode back to her chair due to dyspnea. She denies any chest pain or pressure. She is a former cigarette smoker and quit smoking in 2005. Telemetry reveals sinus tachycardia with heart rate around 115. DIAGNOSTICS: - EKG reveals sinus tachycardia with no signs of acute ischemia. - Chest xray right lower lobe infiltrate. Correlate for atelectasis or pneumonia. - Chest CTA: Negative for pulmonary embolism. Moderate to severe underlying emphysematous change with moderate parenchymal fibrosis. No suspicious acute p ulmonary process. - Laboratory data: WBC 16.41. Hemoglobin 13.2. Platelet count 288. D-dimer 1.31. Sodium 137. Sodium 3.8. BUN 30. Creatinine 0.80. Troponin 0.046. 0.054. proBNP 15,900. - Current home cardiac medications include amlodipine 2.5 mg daily as needed, Aldactone 12.5 mg daily, metoprolol succinate 12.5 mg daily, Bumex 1 mg daily, atorvastatin 40 mg daily, aspirin 81 mg daily. - Most recent echocardiogram obtained in July 2024 revealed ejection fraction 55%, severe right ventricular dilation with RV to LV ratio of 1.95, mild to moderate right ventricular hypokinesis, pulmonary hypertension with RVSP 67, mild MR, moderate TR - Cardiac catheterization history: August 2024 revealing 30 to 40% mid to distal LAD, 40% OM1, 50% distal RCA stenosis and small aneurysmal portion of the mid RCA 12/07/2024 Patient examined this morning. She is sitting up in the chair. Patient denies any chest pain or pressure. She reports improvement in her shortness of breath. Patient's oxygen requirements have decreased. She is currently on 6 L nasal cannula. Patient was started on IV Bumex yesterday per pulmonary medicine. Urine output over the last 24 hours is 1900 cc. 12/08/2024 Patient examined this morning at the bedside. Patient's diuretics were discontinued this morning per primary medicine. BUN 49. Creatinine 0.97. Patient without complaints of chest pain or pressure. Vital signs are stable. PHYSICAL EXAM: VITAL SIGNS: Reviewed. GENERAL: Well-developed in no acute distress. HEENT: Head is normocephalic. Pupils are equal, round. Sclerae anicteric. Mucous membranes of the mouth are moist. Neck supple. No JVD or thyromegaly LUNGS: Respirations even and unlabored. Lungs diminished bilaterally HEART: Mildly tachycardic. Regular rate and rhythm. S1 and S2 heard. ABDOMEN: Soft. Nondistended. Nontender. EXTREMITIES: Normal range of motion. No clubbing or cyanosis. Peripheral pulses intact. No lower extremity edema NEUROLOGIC: Awake and alert. Oriented x 3. ASSESSMENT: Acute hypoxic respiratory failure Chronic hypoxic respiratory failure on home oxygen Possible right lower lobe pneumonia per x-ray, procalcitonin normal Acute COPD exacerbation Severe pulmonary hypertension Elevated troponins, type II DE secondary to oxygen supply and demand mismatch History of hypertension History of hyperlipidemia Mild CAD History of AAA Former nicotine dependence, patient quit smoking in 2005 PLAN: No need to repeat echocardiogram as this was performed in July 2024 Patient has been transition to oral diuretics Continue current cardiac medications Continue telemetry monitoring Pulmonary following. Patient transition to oral steroids Continue to wean oxygen as tolerated Anticipate discharge tomorrow if patient remains stable Further recommendations pending patient course Nurse practitioner note has been reviewed by physician. Signing provider agrees with the documented findings, assessment, and plan of care documented by AIR COMPRESSOR MECHANIC as a scribe. Objective - Vital Signs Vital signs: Vital Signs Temp 97.8 F 12/08/24 03:20 Pulse 120 H 12/08/24 09:26 Resp 16 12/08/24 03:20 BP 121/74 12/08/24 03:20 Pulse Ox 92 L 12/08/24 03:20 FiO2 Intake & Output 12/07/24 12/08/24 12/08/24 18:59 06:59 18:59 Intake Total 422 890 240 Output Total 2560 1502 Balance -2138 -612 240 Weight 58.5 kg Intake: Oral 422 890 240 Output: Urine 2560 1500 Stool 2 Other: Voiding Method Bedside Commode Bedside Commode # Bowel Movements 1 - Labs CBC & Chem 7: 12/05/24 07:36 12/08/24 06:04 Labs: Abnormal Lab Results - Last 24 Hours (Table) 12/07/24 12/07/24 12/07/24 Range/Units 11:23 16:11 20:06 Sodium (137-145) mmol/L Potassium (3.5-5.1) mmol/L Chloride (98-107) mmol/L Carbon Dioxide (22-30) mmol/L BUN (7-17) mg/dL Glucose (74-99) mg/dL POC Glucose (mg/dL) 177 H 188 H 346 H (70-110) mg/dL 12/07/24 12/08/24 12/08/24 Range/Units 21:00 05:46 06:04 Sodium 133 L (137-145) mmol/L Potassium 3.3 L (3.5-5.1) mmol/L Chloride 91 L (98-107) mmol/L Carbon Dioxide 31 H (22-30) mmol/L BUN 49 H (7-17) mg/dL Glucose 200 H (74-99) mg/dL POC Glucose (mg/dL) 281 H 206 H (70-110) mg/dL Microbiology - Last 24 Hours (Table) 12/04/24 00:27 Blood Culture - Preliminary Blood
[2024-12-08] MEDS: POTASSIUM CHLORIDE ER 20 MEQ TAB.ER PO STA (12:30)
--- NOTE | 2024-12-08 13:58 | P.PN ---
Subjective Progress Note Date: 12/08/24 74 year old F with PMH of COPD on 4L home O2, pulmonary hypertension, AAA presented to the ED for progressively worsening shortness of breath. Vitals on admission T 97.7, HR 108, RR 24, BP 123/85, O2 saturation of 92% on 4 L nasal cannula. EKG showed atrial tachycardia with PVCs and incomplete RBBB rate of 118 and QTc of 441 ms CXR showed RLL infiltrate. CTA chest showed no PE, emphysema changes, AAA. Labs on admission showed WBC 22.98, D-Dmer 1.31, Na 136, K 3.3, Cl 95, BUN 23, glu 157, Lactic acid 5.3, AST 46, BNP 02412. Pro-damaso 0.36. Trop 0.046, 0.054. COVID, RSV, Flu neg. Legionella Ag neg. Patient was admitted for acute on chronic hypoxic respiratory failure secondary to COPD exacerbation. She was started on bronchodilators and SoluMedrol. Pulmonary was consulted. 12/06 Patient was seen and examined. Currently on 15L HFNC saturating 89%. No complaints. SOB with exertion. No new labs done today. 12/07 Patient was seen and examined. Weaned down to 6L HFNC this morning however dropped to the low 70s with ambulation to the bedside commode. Took 10 minutes to recover. Maintained on Bumex 1 mg IV BID. BMP shows Na 133, K 3.3, Cl 93, BUN 39, glu 206. Mag 1.7. 12/08 Patient was seen and examined. Maintained on 6L HFNC saturating low 90s at rest. BMP Na 133, K 3.3, Cl 91, bicarb 31, BUN 49, glu 200. Mag 1.9. General: non toxic, no distress, appears at stated age Derm: warm, dry Head: atraumatic, normocephalic, symmetric Eyes: EOMI, no lid lag, anicteric sclera Mouth: no lip lesion, mucus membranes moist Cardiovascular: S1S2 reg, no murmur Lungs: Decreased BS bilateral, no rhonchi, no rales , no accessory muscle use Ext: no gross muscle atrophy, no edema, no contractures Neuro: no focal neuro deficits Psych: Alert, oriented, appropriate affect Based on my assessment of this patient, this patient meets a high complexity level of care. Acute on chronic hypoxic respiratory failure currently on 6 L with home O2 of 4 L: DuoNeb QID schduled. Pulmicort 1 mg INH BID. Performist 20 mcg INH BID. Mucinex 1200 mg PO BID. Solumedrol switched to Prednisone 40 mg PO QD. Telemetry monitoring. Pulmonary on board. Acute exacerbation of COPD: Management as above. Acute exacerbation of diastolic CHF: Echo 07/2024 shows EF 55% with G1DD. Bumex from 1 mg IV QD switched to Lasix 40 mg PO QD. Metolazone as below. Aldactone as below. Cardiology on board. Troponin elevation likely type II NSTEMI with history of CAD: ASA 81 mg PO QD. Lipitor 40 mg PO QD. Metoprolol 12.5 mg PO QD. Would benefit from ACEi. Cardiology on board. Hypokalemia, Hyponatremia and prerenal azotemia likely due to forced diuresis: KCl 40 meq PO x 1 today. Group 3 pulmonary hypertension HTN: Aldactone 12.5 mg PO QD. Metolazone 2.5 mg PO QD. Amlodipine 2.5 mg PO QD. Metoprolol 12.5 mg PO QD. Depression: Sertraline 50 mg PO QD. AAA: Outpatient follow up for routine maintenance. CODE STATUS: FULL CODE DVT Prophylaxis: Lovenox SQ GI Prophylaxis: Protonix PO Designated medical POA if patient is not able to make medical decisions for themselves: I have reviewed the following education sales consultant notes: Pulmonary, Cardio. I have reviewed the results of the following tests: BMP and Mag. I have ordered the following tests: BMP and Mag in the AM. I have discussed the care of this patient with the following independent historian: I have independently interpreted the following test below: I have discussed the management of this patient with the following physician: Dr. Colunga. Objective - Vital Signs Vital signs: Vital Signs Temp 98.7 F 12/08/24 08:00 Pulse 108 H 12/08/24 12:04 Resp 18 12/08/24 08:00 BP 109/72 12/08/24 08:00 Pulse Ox 88 L 12/08/24 11:56 FiO2 Intake & Output 12/07/24 12/08/24 12/08/24 18:59 06:59 18:59 Intake Total 422 890 240 Output Total 2560 1502 1 Balance -2138 -612 239 Weight 58.5 kg Intake: Oral 422 890 240 Output: Urine 2560 1500 Stool 2 1 Other: Voiding Method Bedside Commode Bedside Commode Bedside Commode # Bowel Movements 1 - Labs CBC & Chem 7: 12/05/24 07:36 12/08/24 06:04 Labs: Abnormal Lab Results - Last 24 Hours (Table) 12/07/24 12/07/24 12/07/24 Range/Units 16:11 20:06 21:00 Sodium (137-145) mmol/L Potassium (3.5-5.1) mmol/L Chloride (98-107) mmol/L Carbon Dioxide (22-30) mmol/L BUN (7-17) mg/dL Glucose (74-99) mg/dL POC Glucose (mg/dL) 188 H 346 H 281 H (70-110) mg/dL 12/08/24 12/08/24 12/08/24 Range/Units 05:46 06:04 11:04 Sodium 133 L (137-145) mmol/L Potassium 3.3 L (3.5-5.1) mmol/L Chloride 91 L (98-107) mmol/L Carbon Dioxide 31 H (22-30) mmol/L BUN 49 H (7-17) mg/dL Glucose 200 H (74-99) mg/dL POC Glucose (mg/dL) 206 H 176 H (70-110) mg/dL Microbiology - Last 24 Hours (Table) 12/04/24 00:27 Blood Culture - Preliminary Blood
--- NOTE | 2024-12-08 14:59 | P.PN ---
Subjective Progress Note Date: 12/08/24 On 12/06/2024, the patient is being seen for ongoing difficulties with shortness of breath and hypoxemia. Earlier this morning, the patient was on 15 L of oxygen by nasal cannula and her pulse ox was around 92 to 93%. Her CAT scan of the chest from this current admission was noted. This was a CT of the chest that showed no evidence of any pulmonary embolism. It showed background emphysema there was moderate to severe along with some ongoing fibrosis. No acute cardiopulmonary process noted. The patient also has a aneurysm of the abdominal aorta and a 1.4 cm gallstone. For now, the patient is on DuoNeb updrafts [id number], Aldactone and oral Bumex. The patient is also on Perforomist and Pulmicort neb regimen twice a day and IV Solu-Medrol 60 mg every 6 hours. 12/07/2024, the patient is feeling better. Oxygenation is improved and the patient is currently down to 6 L of oxygen by nasal cannula. Noted the patient was given a combination of Bumex and Zaroxolyn and the patient has produced excellent urine output. The patient has been more than 2 L negative fluid balance over the past 24 hours. Potassium level is at 3.3 it is to be replaced. Sodium levels at 133, BUN 29 with a creatinine of 0.8. She remains on IV Bumex 1 mg every 12 hours and she is also on Zaroxolyn 2.5 mg p.o. daily and Aldactone. No other new complaints otherwise for now. On today's evaluation of 12/08/2024, the patient is stable and she is on 60 days of oxygen nasal cannula with a pulse ox of 88%. She continues to diurese aggressively and the patient has been negative fluid balance of 2.7 L. Will make adjustments in her diuretics. Going to discontinue Zaroxolyn and put the patient on Lasix 40 mg p.o. daily in combination with Aldactone 12.5 mg p.o. daily. Electrolytes from today showed a sodium level of 133, K3.3, bicarbonate 31, BUN is 49 with a creatinine of 0.9. No other significant events overnight. Objective - Vital Signs Vital signs: Vital Signs Temp 98.7 F 12/08/24 08:00 Pulse 108 H 12/08/24 12:04 Resp 18 12/08/24 08:00 BP 109/72 12/08/24 08:00 Pulse Ox 88 L 12/08/24 11:56 FiO2 Intake & Output 12/07/24 12/08/24 12/08/24 18:59 06:59 18:59 Intake Total 422 890 240 Output Total 2560 1502 1 Balance -8 61 239 Weight 58.5 kg Intake: Oral 422 890 240 Output: Urine 2560 1500 Stool 2 1 Other: Voiding Method Bedside Commode Bedside Commode Bedside Commode # Bowel Movements 1 - Exam The patient appeared well nourished and normally developed. Vital signs as documented. No signs of any acute respiratory distress. The patient is currently on 6 L of oxygen by nasal cannula Head exam is unremarkable. No scleral icterus or corneal arcus noted. Neck is without jugular venous distension, thyromegaly, or carotid bruits. Carotid upstrokes are brisk bilaterally. Lungs are diminished bilateral lung with coarse crackles lung base bilaterally. Cardiac exam reveals the PMI to be normally sized and situated. Rhythm is regular. First and second heart sounds normal. No murmurs, rubs or gallops. Abdominal exam reveals normal bowel sounds, no masses, no organomegaly and no aortic enlargement. Extremities are nonedematous and both femoral and pedal pulses are normal. Examination of the skin revealed no evidence of significant rashes, suspicious appearing nevi or other concerning lesions. Neurologically, the patient is awake and alert and the patient does not have any focal neurological deficit. Cranial nerves are essentially intact. - Labs CBC & Chem 7: 12/05/24 07:36 12/08/24 06:04 Labs: Abnormal Lab Results - Last 24 Hours (Table) 12/07/24 12/07/24 12/07/24 Range/Units 16:11 20:06 21:00 Sodium (137-145) mmol/L Potassium (3.5-5.1) mmol/L Chloride (98-107) mmol/L Carbon Dioxide (22-30) mmol/L BUN (7-17) mg/dL Glucose (74-99) mg/dL POC Glucose (mg/dL) 188 H 346 H 281 H (70-110) mg/dL 12/08/24 12/08/24 12/08/24 Range/Units 05:46 06:04 11:04 Sodium 133 L (137-145) mmol/L Potassium 3.3 L (3.5-5.1) mmol/L Chloride 91 L (98-107) mmol/L Carbon Dioxide 31 H (22-30) mmol/L BUN 49 H (7-17) mg/dL Glucose 200 H (74-99) mg/dL POC Glucose (mg/dL) 206 H 176 H (70-110) mg/dL Microbiology - Last 24 Hours (Table) 12/04/24 00:27 Blood Culture - Preliminary Blood Assessment and Plan Plan: Acute on chronic hypoxemic respiratory failure, currently on 6 L/min nasal cannula, chest x-ray which does not show any acute cardiopulmonary process, chronic parenchymal changes noted bilaterally. No focal airspace opacities, pleural effusions, pneumothoraces. CTA of the chest that showed no evidence of any pulmonary embolism. The patient has moderate to severe emphysematous changes along with some fibrotic changes bilaterally. As such, the patient hypoxemia is multifactorial. She does have also significant pulm hypertension and possibility of fluid overload cannot be completely excluded as the patient had elevated proBNP level at time of admission. The patient responded nicely to diuretics and the patient remains in negative fluid balance. Potassium level needs to be replaced. The patient is currently on settings of oxygen by nasal cannula. Acute COPD exacerbation, improving Acute on chronic hypoxic respiratory failure, currently on 4 L of O2 nasal cannula Acute on chronic dyspnea Acute COPD exacerbation and frequent COPD exacerabations for the same and her last admission was in 09/21/24 Chronic oxygen dependence, normally maintained on 4 L/min nasal cannula Elevated troponins, did undergo a right and left heart catheterization yesterday September 23, 2024, to be treated medically, and the patient had a 30 to 40% mid to distal LAD, 40% OM1, 50% distal RCA and small aneurysmal portion of the mid RCA. Patient was offered medical therapy. Pulmonary hypertension, suspect group 3, elevated BroBNP, echocardiogram from 08/07/2024 showed a preserved LV function, nevertheless, the patient had severe pulmonary hypertension. RV was severely dilated and estimated PA pressure was 67. She had also moderate TR. Recent hospitalization for RSV tracheobronchitis on 08/06/24 Infrarenal abdominal aortic aneurysm, 4.7 cm follows with vascular surgery outpatient Systemic hypertension Peripheral vascular disease and carotid artery stenosis Former tobacco smoker Anxiety/depression Plan: Clinically stable and overall respiratory status seems to be back to her baseline Will titrate oxygen flow to maintain oxygen saturation above 90%, currently on 6 L of O2 nasal cannula Replace K Continue DuoNeb nebulizer treatments [id number] Continue Perforomist and Pulmicort neb regimen twice a day Discontinue Bumex and Zaroxolyn put the patient on Lasix 40 mg p.o. daily Continue Aldactone Wean down FiO2 as tolerated Discontinue IV Solu-Medrol start the patient on prednisone burst taper Sildenafil was added by cardiology during previous admissions for chronic pulm hypertension. The role of this medication and group 3 pulmonary hypertension is clear. Resume the rest of the home medications We will continue to follow Time with Patient: Greater than 30
[2024-12-08 16:05] LABS: Glucose,Whole Blood 217 mg/dL (70-110)
[2024-12-08 20:10] LABS: Glucose,Whole Blood 176 mg/dL (70-110)
[2024-12-09 06:07] LABS: Glucose,Whole Blood 105 mg/dL (70-110)
[2024-12-09 07:14] LABS: African American GFR (CKD) 60 (>60 ml/min/1.73 sqM); Anion Gap 6 mmol/L; Blood Urea Nitrogen 54 mg/dL (7-17); Calcium 10.4 mg/dL (8.4-10.2); Carbon Dioxide 35 mmol/L (22-30); Chloride 91 mmol/L (98-107); Glucose 100 mg/dL (74-99); Magnesium 1.9 mg/dL (1.6-2.3); Non-African American GFR(CKD) 52 (>60 ml/min/1.73 sqM); Potassium 3.6 mmol/L (3.5-5.1); Sodium 132 mmol/L (137-145)
[2024-12-09 09:46] LABS: Basophils # (A) 0.03 10*3/uL (0.00-0.10); Basophils % (A) 0.1 %; Eosinophils # (A) 0.05 10*3/uL (0.04-0.35); Eosinophils % (A) 0.2 %; HGB 15.3 g/dL (12.0-15.0); Lymphocytes # (A) 2.98 10*3/uL (0.90-5.00); Lymphocytes % (A) 14.3 %; MCH 27.9 pg (27.0-32.0); MCHC 32.6 g/dL (32.0-37.0); MCV 85.8 fL (80.0-97.0); Mean Platelet Volume 11.4 fL (9.5-12.2); Monocytes # (A) 1.38 10*3/uL (0.20-1.00); Monocytes % (A) 6.6 %; Neutrophils # (A) 16.18 10*3/uL (1.80-7.70); Neutrophils % (A) 77.8 %; Platelet Count 331 10*3/uL (140-440); RBC 5.48 10*6/uL (4.10-5.20); RDW 16.9 % (11.5-14.5); WBC 20.83 10*3/uL (4.50-10.00)
[2024-12-09] MEDS: FUROSEMIDE 40 MG TAB PO SCH (09:48)
[2024-12-09] MEDS: NYSTATIN 100,000 UNIT/ML SUSP 500,000 UNIT/5 ML CUP PO SCH (09:48)
[2024-12-09] MEDS: predniSONE 20 MG TAB PO SCH ×2 (09:53→09:54)
--- NOTE | 2024-12-09 11:00 | P.PN ---
Subjective HISTORY OF PRESENT ILLNESS: This is a 74-year-old female with a past medical history significant for pulmonary hypertension, COPD, home oxygen, hypertension, hyperlipidemia, mild CAD, and AAA. Patient follows in the office with Dr. Fontana. We have been asked to see the patient in consultation for elevated troponins. Patient examined at the bedside. Patient presented to the hospital with a chief complaint of shortness of breath. Patient was found to have acute COPD exacerbation and was started on IV steroids. She is currently on 15 L nasal cannula. She states that she wears 4 L nasal cannula at home [id number]. She continues to report shortness of breath this morning. Patient states that she used the commode this morning which is right next to her chair and it took her 8 minutes to get from the commode back to her chair due to dyspnea. She denies any chest pain or pressure. She is a former cigarette smoker and quit smoking in 2005. Telemetry reveals sinus tachycardia with heart rate around 115. DIAGNOSTICS: - EKG reveals sinus tachycardia with no signs of acute ischemia. - Chest xray right lower lobe infiltrate. Correlate for atelectasis or pneumonia. - Chest CTA: Negative for pulmonary embolism. Moderate to severe underlying emphysematous change with moderate parenchymal fibrosis. No suspicious acute p ulmonary process. - Laboratory data: WBC 16.41. Hemoglobin 13.2. Platelet count 288. D-dimer 1.31. Sodium 137. Sodium 3.8. BUN 30. Creatinine 0.80. Troponin 0.046. 0.054. proBNP 15,900. - Current home cardiac medications include amlodipine 2.5 mg daily as needed, Aldactone 12.5 mg daily, metoprolol succinate 12.5 mg daily, Bumex 1 mg daily, atorvastatin 40 mg daily, aspirin 81 mg daily. - Most recent echocardiogram obtained in July 2024 revealed ejection fraction 55%, severe right ventricular dilation with RV to LV ratio of 1.95, mild to moderate right ventricular hypokinesis, pulmonary hypertension with RVSP 67, mild MR, moderate TR - Cardiac catheterization history: August 2024 revealing 30 to 40% mid to distal LAD, 40% OM1, 50% distal RCA stenosis and small aneurysmal portion of the mid RCA 12/07/2024 Patient examined this morning. She is sitting up in the chair. Patient denies any chest pain or pressure. She reports improvement in her shortness of breath. Patient's oxygen requirements have decreased. She is currently on 6 L nasal cannula. Patient was started on IV Bumex yesterday per pulmonary medicine. Urine output over the last 24 hours is 1900 cc. 12/08/2024 Patient examined this morning at the bedside. Patient's diuretics were discontinued this morning per primary medicine. BUN 49. Creatinine 0.97. Patient without complaints of chest pain or pressure. Vital signs are stable. 12/09/2024 Patient examined this morning. She is sitting up in the chair. Patient currently denies any chest pain or pressure. She reports having some episodes of coughing up blood this morning. She is currently on 5 L nasal cannula. PHYSICAL EXAM: VITAL SIGNS: Reviewed. GENERAL: Well-developed in no acute distress. HEENT: Head is normocephalic. Pupils are equal, round. Sclerae anicteric. Mucous membranes of the mouth are moist. Neck supple. No JVD or thyromegaly LUNGS: Respirations even and unlabored. Lungs diminished bilaterally HEART: Mildly tachycardic. Regular rate and rhythm. S1 and S2 heard. ABDOMEN: Soft. Nondistended. Nontender. EXTREMITIES: Normal range of motion. No clubbing or cyanosis. Peripheral pulses intact. No lower extremity edema NEUROLOGIC: Awake and alert. Oriented x 3. ASSESSMENT: Acute hypoxic respiratory failure Chronic hypoxic respiratory failure on home oxygen Possible right lower lobe pneumonia per x-ray, procalcitonin normal Acute COPD exacerbation Severe pulmonary hypertension Elevated troponins, type II FL secondary to oxygen supply and demand mismatch History of hypertension History of hyperlipidemia Mild CAD History of AAA Former nicotine dependence, patient quit smoking in 2005 PLAN: No need to repeat echocardiogram as this was performed in July 2024 Patient has been transition to oral diuretics Continue current cardiac medications Continue telemetry monitoring Continue to wean oxygen as tolerated. Currently on 5 L. Wears 4 L at home. No further inpatient recommendations from a cardiac standpoint We will sign off. Please reconsult if needed. Nurse practitioner note has been reviewed by physician. Signing provider agrees with the documented findings, assessment, and plan of care documented by CHIEF EXECUTIVE OFFICER as a scribe. Objective - Vital Signs Vital signs: Vital Signs Temp 97.8 F 12/09/24 08:35 Pulse 76 12/09/24 08:35 Resp 19 12/09/24 08:35 BP 111/76 12/09/24 08:35 Pulse Ox 84 L 05/15/25 08:35 FiO2 Intake & Output 12/08/24 12/09/24 12/09/24 18:59 06:59 18:59 Intake Total 358 300 240 Output Total 842 1502 Balance -484 -1202 240 Weight 57.4 kg Intake: Oral 358 300 240 Output: Urine 840 1500 Stool 2 2 Other: Voiding Method Bedside Commode Bedside Commode - Labs CBC & Chem 7: 12/09/24 06:28 12/09/24 06:28 Labs: Abnormal Lab Results - Last 24 Hours (Table) 12/08/24 12/08/24 12/08/24 Range/Units 11:04 16:03 20:09 WBC (4.50-10.00) 10*3/uL RBC (4.10-5.20) 10*6/uL Hgb (12.0-15.0) g/dL Hct (37.2-46.3) % Immature Gran # (0.00-0.04) 10*3/uL Neutrophils # (1.80-7.70) 10*3/uL Monocytes # (0.20-1.00) 10*3/uL Sodium (137-145) mmol/L Chloride (98-107) mmol/L Carbon Dioxide (22-30) mmol/L BUN (7-17) mg/dL Creatinine (0.52-1.04) mg/dL Glucose (74-99) mg/dL POC Glucose (mg/dL) 176 H 217 H 176 H (70-110) mg/dL Calcium (8.4-10.2) mg/dL 12/09/24 12/09/24 Range/Units 06:28 06:28 WBC 20.83 H (4.50-10.00) 10*3/uL RBC 5.48 H (4.10-5.20) 10*6/uL Hgb 15.3 H (12.0-15.0) g/dL Hct 47.0 H (37.2-46.3) % Immature Gran # 0.21 H (0.00-0.04) 10*3/uL Neutrophils # 16.18 H (1.80-7.70) 10*3/uL Monocytes # 1.38 H (0.20-1.00) 10*3/uL Sodium 132 L (137-145) mmol/L Chloride 91 L (98-107) mmol/L Carbon Dioxide 35 H (22-30) mmol/L BUN 54 H (7-17) mg/dL Creatinine 1.07 H (0.52-1.04) mg/dL Glucose 100 H (74-99) mg/dL POC Glucose (mg/dL) (70-110) mg/dL Calcium 10.4 H (8.4-10.2) mg/dL
[2024-12-09 11:41] LABS: Glucose,Whole Blood 158 mg/dL (70-110)
--- NOTE | 2024-12-09 12:14 | P.PN ---
Subjective Progress Note Date: 12/09/24 On 12/06/2024, the patient is being seen for ongoing difficulties with shortness of breath and hypoxemia. Earlier this morning, the patient was on 15 L of oxygen by nasal cannula and her pulse ox was around 92 to 93%. Her CAT scan of the chest from this current admission was noted. This was a CT of the chest that showed no evidence of any pulmonary embolism. It showed background emphysema there was moderate to severe along with some ongoing fibrosis. No acute cardiopulmonary process noted. The patient also has a aneurysm of the abdominal aorta and a 1.4 cm gallstone. For now, the patient is on DuoNeb updrafts [id number], Aldactone and oral Bumex. The patient is also on Perforomist and Pulmicort neb regimen twice a day and IV Solu-Medrol 60 mg every 6 hours. 12/07/2024, the patient is feeling better. Oxygenation is improved and the patient is currently down to 6 L of oxygen by nasal cannula. Noted the patient was given a combination of Bumex and Zaroxolyn and the patient has produced excellent urine output. The patient has been more than 2 L negative fluid balance over the past 24 hours. Potassium level is at 3.3 it is to be replaced. Sodium levels at 133, BUN 29 with a creatinine of 0.8. She remains on IV Bumex 1 mg every 12 hours and she is also on Zaroxolyn 2.5 mg p.o. daily and Aldactone. No other new complaints otherwise for now. On today's evaluation of 12/08/2024, the patient is stable and she is on 60 days of oxygen nasal cannula with a pulse ox of 88%. She continues to diurese aggressively and the patient has been negative fluid balance of 2.7 L. Will make adjustments in her diuretics. Going to discontinue Zaroxolyn and put the patient on Lasix 40 mg p.o. daily in combination with Aldactone 12.5 mg p.o. daily. Electrolytes from today showed a sodium level of 133, K3.3, bicarbonate 31, BUN is 49 with a creatinine of 0.9. No other significant events overnight. On 12/09/2024, the patient remains on 5 L of oxygen by nasal cannula. Pulse ox w as 88 to 90% on 4 L. She has no new complaints. Denies having any chest pain. She is currently on DuoNeb updrafts, Perforomist and Pulmicort nebulized treatments twice a day and she was switched to oral prednisone. She is on a dose of 20 mg p.o. per day. She has developed some oropharyngeal candidiasis. No other new complaints. Diuretics have been switched to oral Lasix 40 mg p.o. daily and Aldactone 12.5 mg p.o. daily and the patient has been negative fluid balance of 1.6 L over the past 24 hours. The white cell count is at 20 with a hemoglobin of 15.3 and a platelet count of 331. Sodium is 132, BUN is 54 with a creatinine of 1.07. Potassium level is at 3.6. Objective - Vital Signs Vital signs: Vital Signs Temp 98.1 F 12/09/24 03:25 Pulse 98 12/09/24 08:28 Resp 17 12/09/24 03:25 BP 138/87 12/09/24 03:25 Pulse Ox 95 12/09/24 08:29 FiO2 Intake & Output 12/08/24 12/09/24 12/09/24 18:59 06:59 18:59 Intake Total 358 300 240 Output Total 842 1502 Balance -484 -1202 240 Weight 57.4 kg Intake: Oral 358 300 240 Output: Urine 840 1500 Stool 2 2 Other: Voiding Method Bedside Commode Bedside Commode - Exam The patient appeared well nourished and normally developed. Vital signs as documented. No signs of any acute respiratory distress. The patient is currently on 6 L of oxygen by nasal cannula Head exam is unremarkable. No scleral icterus or corneal arcus noted. Neck is without jugular venous distension, thyromegaly, or carotid bruits. Carotid upstrokes are brisk bilaterally. Lungs are diminished bilateral lung with coarse crackles lung base bilaterally. Cardiac exam reveals the PMI to be normally sized and situated. Rhythm is regular. First and second heart sounds normal. No murmurs, rubs or gallops. Abdominal exam reveals normal bowel sounds, no masses, no organomegaly and no ao rtic enlargement. Extremities are nonedematous and both femoral and pedal pulses are normal. Examination of the skin revealed no evidence of significant rashes, suspicious appearing nevi or other concerning lesions. Neurologically, the patient is awake and alert and the patient does not have any focal neurological deficit. Cranial nerves are essentially intact. - Labs CBC & Chem 7: 12/09/24 06:28 12/09/24 06:28 Labs: Abnormal Lab Results - Last 24 Hours (Table) 12/08/24 12/08/24 12/08/24 Range/Units 11:04 16:03 20:09 Sodium (137-145) mmol/L Chloride (98-107) mmol/L Carbon Dioxide (22-30) mmol/L BUN (7-17) mg/dL Creatinine (0.52-1.04) mg/dL Glucose (74-99) mg/dL POC Glucose (mg/dL) 176 H 217 H 176 H (70-110) mg/dL Calcium (8.4-10.2) mg/dL 12/09/24 Range/Units 06:28 Sodium 132 L (137-145) mmol/L Chloride 91 L (98-107) mmol/L Carbon Dioxide 35 H (22-30) mmol/L BUN 54 H (7-17) mg/dL Creatinine 1.07 H (0.52-1.04) mg/dL Glucose 100 H (74-99) mg/dL POC Glucose (mg/dL) (70-110) mg/dL Calcium 10.4 H (8.4-10.2) mg/dL Assessment and Plan Plan: Acute on chronic hypoxemic respiratory failure, currently on 5 L/min nasal cannula, chest x-ray which does not show any acute cardiopulmonary process, chronic parenchymal changes noted bilaterally. No focal airspace opacities, pleural effusions, pneumothoraces. CTA of the chest that showed no evidence of any pulmonary embolism. The patient has moderate to severe emphysematous changes along with some fibrotic changes bilaterally. As such, the patient hypoxemia is multifactorial. She does have also significant pulm hypertension and possibility of fluid overload cannot be completely excluded as the patient h ad elevated proBNP level at time of admission. The patient responded nicely to diuretics and the patient remains in negative fluid balance. Potassium level needs to be replaced. The patient is currently on 5 L of oxygen by nasal cannula. Acute COPD exacerbation, improving Acute on chronic hypoxic respiratory failure, currently on 4 L of O2 nasal cannula Acute on chronic dyspnea Acute COPD exacerbation and frequent COPD exacerabations for the same and her last admission was in 09/21/24 Chronic oxygen dependence, normally maintained on 4 L/min nasal cannula Elevated troponins, did undergo a right and left heart catheterization yesterday September 23, 2024, to be treated medically, and the patient had a 30 to 40% mid to distal LAD, 40% OM1, 50% distal RCA and small aneurysmal portion of the mid RCA. Patient was offered medical therapy. Pulmonary hypertension, suspect group 3, elevated BroBNP, echocardiogram from 08/07/2024 showed a preserved LV function, nevertheless, the patient had severe pulmonary hypertension. RV was severely dilated and estimated PA pressure was 67. She had also moderate TR. Recent hospitalization for RSV tracheobronchitis on 08/06/24 Infrarenal abdominal aortic aneurysm, 4.7 cm follows with vascular surgery outpatient Systemic hypertension Peripheral vascular disease and carotid artery stenosis Former tobacco smoker Anxiety/depression Plan: Clinically stable and overall respiratory status seems to be back to her baseline Will titrate oxygen flow to maintain oxygen saturation above 90%, currently on 5 L of O2 nasal cannula Nystatin to swish and swallow for oropharyngeal candidiasis Prednisone taper down to 20 mg p.o. daily Continue DuoNeb nebulizer treatments [id number] Continue Perforomist and Pulmicort neb regimen twice a day Continue Aldactone and Lasix 40 mg p.o. daily Negative fluid balance Wean down FiO2 as tolerated Discontinue IV Solu-Medrol start the patient on prednisone burst taper Sildenafil was added by cardiology during previous admissions for chronic pulm hypertension. The role of this medication and group 3 pulmonary hypertension is clear. Resume the rest of the home medications We will continue to follow, possible home today over the next 24 hours.
[2024-12-09 13:12] VITALS: BP 113/75; PULSE 107; RESP 24; TEMP 96.7
--- NOTE | 2024-12-09 14:32 | P.DS ---
Providers Date of admission: 12/04/24 00:17 Expected date of discharge: 12/09/24 Attending physician: Theresa Cruz MD Consults: 12/04/24 00:17 Consult Physician Routine Consulting Provider: Pietro Colunga Consult Reason/Comments: your patient Do you want consulting provider notified?: Yes Primary care physician: [facility] Course: 74 year old F with PMH of COPD on 4L home O2, pulmonary hypertension, AAA presented to the ED for progressively worsening shortness of breath. Vitals on admission T 97.7, HR 108, RR 24, BP 123/85, O2 saturation of 92% on 4 L nasal cannula. EKG showed atrial tachycardia with PVCs and incomplete RBBB rate of 118 and QTc of 441 ms CXR showed RLL infiltrate. CTA chest showed no PE, emphysema changes, AAA. Labs on admission showed WBC 22.98, D-Dmer 1.31, Na 136, K 3.3, Cl 95, BUN 23, glu 157, Lactic acid 5.3, AST 46, BNP 84749. Pro-damaso 0.36. Trop 0.046, 0.054. COVID, RSV, Flu neg. Legionella Ag neg. Patient was admitted for acute on chronic hypoxic respiratory failure secondary to COPD exacerbation. She was started on bronchodilators and SoluMedrol. Pulmonary was consulted. 12/06 Patient was seen and examined. Currently on 15L HFNC saturating 89%. No complaints. SOB with exertion. No new labs done today. 12/07 Patient was seen and examined. Weaned down to 6L HFNC this morning however dropped to the low 70s with ambulation to the bedside commode. Took 10 minutes to recover. Maintained on Bumex 1 mg IV BID. BMP shows Na 133, K 3.3, Cl 93, BUN 39, glu 206. Mag 1.7. 12/08 Patient was seen and examined. Maintained on 6L HFNC saturating low 90s at rest. BMP Na 133, K 3.3, Cl 91, bicarb 31, BUN 49, glu 200. Mag 1.9. 12/09 Patient was seen and examined. Currently on 4L NC saturating mid 80s which is normal for her per patient. She feels well. Requesting discharge home. CBC and BMP significant for WBC 20.83, RBC 5.48, Hg 15.3, Hct 47, Na 132, Cl 91, bicarb 35, BUN 54, Cr 1.07, glu 100, Ca 10.4. Mag 1.9. Discharge Plans: Resume all home medication. Daily Prednisone increased to 20 mg PO QD. Follow up with PCP within 1-[address] Colunga on 12/15. Repeat BMP to evaluate renal function with your PCP within 3 days. General: non toxic, no distress, appears at stated age Derm: warm, dry Head: atraumatic, normocephalic, symmetric Eyes: EOMI, no lid lag, anicteric sclera Mouth: no lip lesion, mucus membranes moist Cardiovascular: S1S2 reg, no murmur Lungs: Decreased BS bilateral, no rhonchi, no rales , no accessory muscle use Ext: no gross muscle atrophy, no edema, no contractures Neuro: no focal neuro deficits Psych: Alert, oriented, appropriate affect Discharge Diagnosis: Acute on chronic hypoxic respiratory failure currently on 6 L with home O2 of 4 L Acute exacerbation of COPD Acute exacerbation of diastolic CHF Troponin elevation likely type II NSTEMI with history of CAD Hyponatremia and TARUN likely due to forced diuresis Group 3 pulmonary hypertension HTN Depression AAA Resolved: Hypokalamia This complex discharge took 35 minutes to complete. Patient Condition at Discharge: Stable Plan - Discharge Summary Discharge Rx Participant: Yes New Discharge Prescriptions: New predniSONE [Deltasone] 20 mg PO DAILY #30 tab Continue [place] 20mg 20 mg PO DAILY Atorvastatin [Lipitor] 40 mg PO DAILY Dicyclomine [Bentyl] 10 mg PO TID Ergocalciferol [Vitamin D2 (1250 Mcg = 19324 Iu)] 1,250 mcg PO MO Ipratropium/Albuter 20-100Mcg [Combivent Respimat 20-100Mcg Inhaler] 1 puff INHALATION RT-QID Sertraline [Zoloft] 50 mg PO DAILY guaiFENesin [Mucinex] 1,200 mg PO BID #30 tab Sildenafil [Revatio] 20 mg PO TID #90 tab Metoprolol Succinate (ER) [Toprol XL] 12.5 mg PO DAILY #60 tab Albuterol Sulfate [Ventolin HFA] 2 puff INHALATION RT-Q4H PRN PRN Reason: Shortness Of Breath Azithromycin [Zithromax] 500 mg PO DAILY amLODIPine [Norvasc] 2.5 mg PO DAILY PRN PRN Reason: high bp Aspirin EC [Ecotrin Low Dose] 81 mg PO DAILY Cetirizine HCl [Zyrtec] 10 mg PO DAILY Fluticasone/Umeclidin/Vilanter [Trelegy Ellipta 200-62.5-25] 1 puff INHALATION RT-DAILY Ipratropium-Albuterol Nebulize [Duoneb 0.5 mg-3 mg/3 ml Soln] 3 ml INHALATION RT-QID PRN PRN Reason: Shortness Of Breath Pantoprazole [Protonix] 40 mg PO AC-BRKFST #30 tab Acetaminophen Tab [Tylenol] 650 mg PO Q4HR PRN tab PRN Reason: Fever And/Or Mild Pain Spironolactone [Aldactone] 12.5 mg PO DAILY #30 tab Bumetanide [BUMEX] 1 mg PO DAILY #30 tab Discontinued predniSONE 10 mg PO DAILY Discharge Medication List Aspirin EC [Ecotrin Low Dose] 81 mg PO DAILY 08/06/24 [History] Atorvastatin [Lipitor] 40 mg PO DAILY 08/06/24 [History] Cetirizine HCl [Zyrtec] 10 mg PO DAILY 08/06/24 [History] Dicyclomine [Bentyl] 10 mg PO TID 08/06/24 [History] Ergocalciferol [Vitamin D2 (1250 Mcg = 18129 Iu)] 1,250 mcg PO MO 08/06/24 [History] Fluticasone/Umeclidin/Vilanter [Trelegy Ellipta 200-62.5-25] 1 puff INHALATION RT-DAILY 08/06/24 [History] Ipratropium-Albuterol Nebulize [Duoneb 0.5 mg-3 mg/3 ml Soln] 3 ml INHALATION RT-QID PRN 08/06/24 [History] Ipratropium/Albuter 20-100Mcg [Combivent Respimat 20-100Mcg Inhaler] 1 puff INHALATION RT-QID 08/06/24 [History] [place] 20mg 20 mg PO DAILY 08/06/24 [History] Sertraline [Zoloft] 50 mg PO DAILY 08/06/24 [History] amLODIPine [Norvasc] 2.5 mg PO DAILY PRN 08/06/24 [History] Acetaminophen Tab [Tylenol] 650 mg PO Q4HR PRN tab 08/13/24 [Rx] Pantoprazole [Protonix] 40 mg PO AC-BRKFST #30 tab 08/13/24 [Rx] Sildenafil [Revatio] 20 mg PO TID #90 tab 08/13/24 [Rx] guaiFENesin [Mucinex] 1,200 mg PO BID #30 tab 08/13/24 [Rx] Metoprolol Succinate (ER) [Toprol XL] 12.5 mg PO DAILY #60 tab 09/25/24 [Rx] Albuterol Sulfate [Ventolin HFA] 2 puff INHALATION RT-Q4H PRN 10/24/24 [History] Bumetanide [BUMEX] 1 mg PO DAILY #30 tab 10/28/24 [Rx] Spironolactone [Aldactone] 12.5 mg PO DAILY #30 tab 10/28/24 [Rx] Azithromycin [Zithromax] 500 mg PO DAILY 12/04/24 [History] predniSONE [Deltasone] 20 mg PO DAILY #30 tab 12/09/24 [Rx] Follow up Appointment(s)/Referral(s): Nolan Cohpra MD [Primary Care Provider] - 12/14/24 11:00 am (with Emili Hogue NP) Pietro Colunga MD [STAFF PHYSICIAN] - 12/15/24 3:30 pm (Keep Scheduled appointment. [address]) Patient Instructions/Handouts: Bacterial Pneumonia (DC) Activity/Diet/Wound Care/Special Instructions: Repeat BMP to evaluate renal function with your PCP within 3 days. Discharge Disposition: HOME SELF-CARE
== END 2024-12-09 15:17 | disposition home or self-care (01) | DRG 193 ==
LOC: EC 21:43 → 3SCARD 12-04 00:17
PROVIDERS: ADMIT Internal Medicine; ATTEND Internal Medicine
DX: J18.9 Pneumonia, unspecified organism (principal); I21.A1 Myocardial infarction type 2; I50.33 Acute on chronic diastolic (congestive) heart failure; J96.21 Acute and chronic respiratory failure with hypoxia; B37.0 Candidal stomatitis; E87.20 Acidosis, unspecified; E87.1 Hypo-osmolality and hyponatremia; J44.1 Chronic obstructive pulmonary disease with (acute) exacerbation; I27.23 Pulmonary hypertension due to lung diseases and hypoxia; I11.0 Hypertensive heart disease with heart failure; I71.40 Abdominal aortic aneurysm, without rupture, unspecified; F32.A Depression, unspecified; I65.29 Occlusion and stenosis of unspecified carotid artery; J44.0 Chronic obstructive pulmonary disease with (acute) lower respiratory infection; I47.19 Other supraventricular tachycardia; J43.9 Emphysema, unspecified; J84.10 Pulmonary fibrosis, unspecified; Z99.81 Dependence on supplemental oxygen; I25.10 Atherosclerotic heart disease of native coronary artery without angina pectoris; T50.2X5A Adverse effect of carbonic-anhydrase inhibitors, benzothiadiazides and other diuretics, initial encounter; E87.6 Hypokalemia; I71.43 Infrarenal abdominal aortic aneurysm, without rupture; F41.9 Anxiety disorder, unspecified; I73.9 Peripheral vascular disease, unspecified; E78.5 Hyperlipidemia, unspecified; I45.10 Unspecified right bundle-branch block; I49.3 Ventricular premature depolarization; K80.20 Calculus of gallbladder without cholecystitis without obstruction; Z79.82 Long term (current) use of aspirin; Z79.899 Other long term (current) drug therapy; Z79.51 Long term (current) use of inhaled steroids; Z87.891 Personal history of nicotine dependence; Z86.19 Personal history of other infectious and parasitic diseases; Z79.52 Long term (current) use of systemic steroids; Z96.659 Presence of unspecified artificial knee joint; Z98.61 Coronary angioplasty status
CPT/HCPCS: 36415; 71046; 71275; 80048; 80053; 83605; 83735; 83880; 84145; 84484; 85025; 85379; 85610; 85730; 87040; 87070; 87205; 87449; 87636; 93005; 94640; 94667; 94760; 96361; 96365; 96367; 99291

== ENCOUNTER 2025-01-11 21:02 | Inpatient (IN) | payer MEDICARE, OTHER ==
--- NOTE | 2025-01-11 21:30 | ED ---
General Adult HPI - General Chief complaint: Shortness of Breath Stated complaint: SHAYAN Time Seen by Provider: 01/11/25 21:04 Source: patient, EMS Mode of arrival: EMS - History of Present Illness Initial comments: Patient is a pleasant 74-year-old female the past medical history of pulmonary hypertension, COPD on 5 L home oxygen presenting today for shortness of breath. Patient states was recently discharged from the hospital for similar. Shortness of breath started this morning and states she has received 6 breathing treatments as well as her additional inhalers. She does have intermittent improvement of shortness of breath with use of breathing treatments. States tracey t her lungs "are clear". Denies cough, hemoptysis, sputum production. Denies fevers, chills, chest pain or abdominal pain. Denies dizziness, or weakness. States he does have some tingling in her bilateral little fingers. Of note she also states that she had an episode of epistaxis while in the hospital. She continues to have intermittent dark blood from her nose with nasal congestion. Is not on blood thinners. No history of heart failure. Also note notes 4 days lower extremity swelling. No history of blood clots. - Related Data Home Medications Medication Instructions Recorded Confirmed Atorvastatin [Lipitor] 40 mg PO HS 08/06/24 01/12/25 Cetirizine HCl [Zyrtec] 10 mg PO DAILY 08/06/24 01/12/25 Ergocalciferol [Vitamin D2 (1250 1,250 mcg PO MO 08/06/24 01/12/25 Mcg = 45605 Iu)] Fluticasone/Umeclidin/Vilanter 1 puff INHALATION RT-DAILY 08/06/24 01/12/25 [Trelegy Ellipta 200-62.5-25] Ipratropium-Albuterol Nebulize 3 ml INHALATION RT-QID PRN 08/06/24 01/12/25 [Duoneb 0.5 mg-3 mg/3 ml Soln] Ipratropium/Albuter 20-100Mcg 1 puff INHALATION RT-QID 08/06/24 01/12/25 [Combivent Respimat 20-100Mcg Inhaler] Sertraline [Zoloft] 50 mg PO DAILY 08/06/24 01/12/25 Albuterol Sulfate [Ventolin HFA] 2 puff INHALATION RT-Q4H PRN 10/24/24 01/12/25 Acetaminophen Tab [Tylenol] 650 mg PO Q6HR PRN 01/12/25 01/12/25 Aspirin 81 mg PO DAILY 01/12/25 01/12/25 Dicyclomine [Bentyl] 10 mg PO TID 01/12/25 01/12/25 Furosemide [Lasix] 40 mg PO DAILY 01/12/25 01/12/25 Omeprazole 40 mg PO DAILY 01/12/25 01/12/25 Sildenafil Citrate [Sildenafil] 20 mg PO TID 01/12/25 01/12/25 predniSONE [Deltasone] 10 mg PO DAILY 01/12/25 01/12/25 Previous Rx's Medication Instructions Recorded guaiFENesin [Mucinex] 1,200 mg PO BID #30 tab 08/13/24 Metoprolol Succinate (ER) [Toprol 12.5 mg PO DAILY #60 tab 09/25/24 XL] Fludrocortisone [Florinef] 0.1 mg PO DAILY #0 tab 12/17/24 Allergies Allergy/AdvReac Type Severity Reaction Status Date / Time levofloxacin [From Levaquin] Allergy Unknown Verified 01/12/25 10:22 tetracycline Allergy Unknown Verified 01/12/25 10:22 Review of Systems ROS Statement: Those systems with pertinent positive or pertinent negative responses have been documented in the HPI. ROS Other: All systems not noted in ROS Statement are negative. Past Medical History Past Medical History: COPD, Hyperlipidemia, Hypertension, Respiratory Disorder Additional Past Medical History / Comment(s): Aortic aneurysm. Pulmonary Hypertension History of Any Multi-Drug Resistant Organisms: None Reported Past Surgical History: Breast Surgery, Hysterectomy Additional Past Surgical History / Comment(s): Knee replacement. Wrist surgery. Cataract surgery Past Anesthesia/Blood Transfusion Reactions: No Reported Reaction Past Psychological History: Depression Smoking Status: Former smoker Past Alcohol Use History: None Reported Past Drug Use History: None Reported - Past Family History Mother Family Medical History: Cancer, Diabetes Mellitus Additional Family Medical History / Comment(s): from lung cancer Father Additional Family Medical History / Comment(s): from brain aneurysm General Exam - General Exam Comments Initial Comments: PE: CONSTITUTIONAL: Mild distress, tachypneic, ill-appearing, nontoxic SKIN: Warm, dry, no jaundice, hives or petechiae EYES: Pupils are equally round, extraocular movements intact without nystagmus, clear conjunctiva, non-icteric sclera HENT: Normocephalic, atraumatic, moist mucus membranes, oropharynx clear without exudates NECK: , Full range of motion, normal appearance PULMONARY: Tachypnea, overall clear to auscultation without wheezes, rhonchi, or rales, normal excursion, no accessory muscle use and no stridor CARDIOVASCULAR: tachycardia regular rate, rhythm, normal S1 and S2. No appreciated murmurs, rubs or gallops. Strong radial pulses with intact distal perfusion. 2+ bilateral lower extremity pitting edema up to the knees GASTROINTESTINAL: Soft, active bowel sounds throughout, non-tender, non- distended, no palpable masses, no rebound or guarding. No hepatosplenomegaly MUSCULOSKELETAL: Extremities have no gross deformity NEUROLOGIC:_a/o x 3, GCS 15, normal mentation and speech. Moves all extremities x 4 without motor or sensory deficit PSYCHIATRIC:_normal mood and affect, thought process is clear and linear Course Vital Signs 01/11/25 01/11/25 01/11/25 21:15 21:19 21:59 Temperature 99.6 F Pulse Rate 107 H 99 102 H Respiratory 20 20 Rate Blood Pressure 109/66 109/66 O2 Sat by Pulse 90 L 94 L Oximetry Fraction of Inspired Oxygen (FIO2) 01/11/25 01/11/25 01/11/25 22:13 22:14 22:32 Temperature Pulse Rate 105 H 105 H 101 H Respiratory Rate Blood Pressure O2 Sat by Pulse Oximetry Fraction of 70 Inspired Oxygen (FIO2) 01/11/25 01/12/25 01/12/25 23:46 01:16 02:30 Temperature Pulse Rate 81 91 Respiratory 20 18 Rate Blood Pressure 125/84 95/69 O2 Sat by Pulse 95 94 L Oximetry Fraction of 74 Inspired Oxygen (FIO2) 01/12/25 01/12/25 01/12/25 03:50 04:27 05:37 Temperature 98.7 F Pulse Rate 87 84 Respiratory 20 18 Rate Blood Pressure 94/69 98/75 O2 Sat by Pulse 93 L 96 Oximetry Fraction of 70 Inspired Oxygen (FIO2) 01/12/25 01/12/25 01/12/25 06:05 09:07 09:20 Temperature Pulse Rate 87 92 89 Respiratory 16 Rate Blood Pressure 111/76 O2 Sat by Pulse 93 L Oximetry Fraction of 70 Inspired Oxygen (FIO2) 01/12/25 01/12/25 01/12/25 09:59 10:25 11:30 Temperature Pulse Rate 90 91 98 Respiratory 16 17 18 Rate Blood Pressure 109/75 104/75 107/72 O2 Sat by Pulse 95 98 Oximetry Fraction of Inspired Oxygen (FIO2) 01/12/25 01/12/25 01/12/25 12:16 12:24 14:09 Temperature Pulse Rate 89 89 93 Respiratory 22 Rate Blood Pressure 86/58 O2 Sat by Pulse 96 Oximetry Fraction of 65 Inspired Oxygen (FIO2) 01/12/25 01/12/25 01/12/25 16:00 16:30 16:43 Temperature Pulse Rate 86 88 90 Respiratory 18 Rate Blood Pressure 103/77 O2 Sat by Pulse 95 Oximetry Fraction of Inspired Oxygen (FIO2) 01/12/25 01/12/25 01/12/25 17:04 17:11 18:00 Temperature Pulse Rate 105 H 84 Respiratory 28 H 18 18 Rate Blood Pressure 108/72 104/73 O2 Sat by Pulse 78 L 95 92 L Oximetry Fraction of Inspired Oxygen (FIO2) 01/12/25 19:45 Temperature 97.8 F Pulse Rate 98 Respiratory 16 Rate Blood Pressure 107/81 O2 Sat by Pulse 95 Oximetry Fraction of Inspired Oxygen (FIO2) - Reevaluation(s) Reevaluation #1: Called to bedside as patient's oxygen saturation had gone down to the 70s per RT report, after nebulizer treatment. My assessment patient is mildly tachypneic though no more increased work of breathing, pulse ox 89% on 8 L salter. She will be transition to high flow nasal cannula. Additionally BNP 18,500, troponin 0.40 suspect troponin elevation secondary to demand ischemia. Patient be given 80 mg IV Lasix, additionally potassium 3.0 so she will be given oral and IV potassium 01/11/25 22:35 EKG Findings - EKG Comments: EKG Findings:: Sinus tachycardia, rate 106 bpm, shortened HI interval 108 ms QT/QTc 318/380 ms, left axis deviation, no significant ST elevations or depressions, artifact present limiting interpretation, appears to be respiratory variation in rate Medical Decision Making - Medical Decision Making Was pt. sent in by a medical professional or institution (, PA, WOOD HACKER, urgent care, hospital, or senior care...) When possible be specific @ -Sent from the [facility] Did you speak to anyone other than the patient for history (EMS, parent, family, police, friend...)? What history was obtained from this source @ -No Did you review nursing and triage notes (agree or disagree)? Why? @ -I reviewed and agree with nursing and triage notes Were old charts reviewed (outside hosp., previous admission, EMS record, old EKG, old radiological studies, urgent care reports/EKG's, senior care records)? Report findings @ -Medical records reviewed reviewed discharge summary from 12/17/2024 during patient's recent admission for dizziness, fall and shortness of breath. She is discharged home on 4 liters of nasal cannula, she was seen by ENT during that visit, ENT note states it appeared patient had blood posteriorly and none anteriorly in the nasopharynx, packing was removed without further bleeding Reviewed CTA chest on 12/04/2024, no PE Differential Diagnosis (chest pain, altered mental status, abdominal pain women, abdominal pain men, vaginal bleeding, weakness, fever, dyspnea, syncope, headache, dizziness, GI bleed, back pain, seizure, CVA, palpatations, mental health, musculoskeletal)? @Differential Dyspnea: Coronary syndrome, arrhythmia, tamponade, asthma, COPD, pulmonary embolism, pneumonia, pneumothorax, pulmonary effusion, anaphylaxis, diabetic ketoacidosis, flailed chest, pulmonary contusion, diaphragmatic rupture, anemia, neuromuscular, this is not meant to be an all-inclusive list. EKG interpreted by me (3pts min.). @ -As above X-rays interpreted by me (1pt min.). @Personally reviewed chest x-ray, to me appears to have small bilateral pleural effusions with left lower lobe consolidation, was compared to most recent chest x-ray from 12/12/2024, this does appear to be new from prior. Radiologist read as findings consistent with CHF, they agree with this with the caveat that I do suspect there is a superimposed left lower lobe consolidation consistent with pneumonia CT interpreted by me (1pt min.). @ -None done U/S interpreted by me (1pt. min.). @ -None done What testing was considered but not performed or refused? (CT, X-rays, U/S, labs)? Why? @ -None What meds were considered but not given or refused? Why? @ -None Did you discuss the management of the patient with other professionals (professionals i.e. , SUSANNAH, WOOD HACKER, lab, RT, psych nurse, social services specialist, casino gaming inspector, teacher, airline pilot/first officer, employment case manager)? Give summary @ -No Was smoking cessation discussed for >3mins.? @ -No Was critical care preformed (if so, how long)? Yes 35 minutes Were there social determinants of health that impacted care today? How? (Homelessness, low income, unemployed, alcoholism, drug addiction, transportation, low edu. Level, literacy, decrease access to med. care, [place] [facility], rehab)? @ -No Was there de-escalation of care discussed even if they declined (Discuss DNR or withdrawal of care, Hospice)? @ -No What co-morbidities impacted this encounter? (DM, HTN, Smoking, COPD, CAD, Cancer, CVA, ARF, Chemo, Hep., AIDS, mental health diagnosis, sleep apnea, morbid obesity)? @ -Pulmonary pretension, COPD Was patient admitted / discharged? Hospital course, mention meds given and route, prescriptions, significant lab abnormalities, going to OR and other pertinent info. @ Admission-This is a pleasant 74-year-old female history as above, presenting for SHAYAN. On my assessment patient is wearing nasal cannula and nonrebreather mask on 6L. Pulse ox 91%, of note patient does state that she runs at about 85% on her normal day. Mild tachycardia heart rate 101, blood pressure stable. Mild tachypnea the lungs are clear to auscultation bilaterally. She was able to converse with me. Lower extremity edema 2+ bilaterally. Discussed with patient obtaining CTA, lower extremity ultrasound, administering DuoNebs, additionally will administer Flonase and Afrin to ensure no worsening nasal congestion or return of epistaxis, obtain basic and cardiac labs. Patient agreeable with plan of care. White blood cell count approximately 27,000, imaging has not yet returned however, if patient's shortness of breath suspect likely source pneumonia. On reassessment after duoneb, pt now has crackles and rales in LLL field. Patient transitioned to HiFlo O2, 15 L, 30% Fio2 and had much improved work of breathing. Please see ED courmarnie for further details. Case discussed with Sharif Champion, kindly accepted pt for admission. Undiagnosed new problem with uncertain prognosis? @ -No Drug Therapy requiring intensive monitoring for toxicity (Heparin, Nitro, Insulin, Cardizem)? @ -No Were any procedures done? @ -No Diagnosis/symptom? @Acute on chronic hypoxic respiratory failure, new onset congestive heart failure, pneumonia, hypokalemia Acute, or Chronic, or Acute on Chronic? @ -Acute and acute on chronic Uncomplicated (without systemic symptoms) or Complicated (systemic symptoms)? Complicated Side effects of treatment? @ -No Exacerbation, Progression, or Severe Exacerbation? @ -No Poses a threat to life or bodily function? How? (Chest pain, USA, NM, pneumonia, PE, COPD, DKA, ARF, appy, cholecystitis, CVA, Diverticulitis, Homicidal, Suicidal, threat to staff... and all critical care pts) @Yes - Lab Data Result diagrams: 01/12/25 05:40 01/12/25 05:40 Lab Results 01/11/25 01/11/25 01/11/25 Range/Units 21:10 21:10 21:10 WBC 27.72 H (4.50-10.00) 10*3/uL RBC 4.26 (4.10-5.20) 10*6/uL Hgb 11.3 L (12.0-15.0) g/dL Hct 36.2 L (37.2-46.3) % MCV 85.0 D (80.0-97.0) fL MCH 26.5 L (27.0-32.0) pg MCHC 31.2 L (32.0-37.0) g/dL Plt Count 343 (140-440) 10*3/uL MPV 10.9 (9.5-12.2) fL Immature Gran % (Auto) 0.8 % Neutrophils % 88.4 % Lymphocytes % 5.0 % Monocytes % 5.4 % Eosinophils % 0.0 % Basophils % 0.4 % Immature Gran # 0.22 H (0.00-0.04) 10*3/uL Neutrophils # 24.50 H (1.80-7.70) 10*3/uL Lymphocytes # 1.38 (0.90-5.00) 10*3/uL Monocytes # 1.51 H (0.20-1.00) 10*3/uL Eosinophils # 0.01 L (0.04-0.35) 10*3/uL Basophils # 0.10 (0.00-0.10) 10*3/uL PT 10.9 (10.0-12.5) sec INR 1.0 (<1.2) APTT 24.8 (22.0-30.0) sec Sodium 137 (137-145) mmol/L Potassium 3.0 L (3.5-5.1) mmol/L Chloride 99 (98-107) mmol/L Carbon Dioxide 26 (22-30) mmol/L Anion Gap 12 mmol/L BUN 19 H (7-17) mg/dL Creatinine 0.73 (0.52-1.04) mg/dL Est GFR (CKD-EPI)AfAm >90 (>60 ml/min/1.73 sqM) Est GFR (CKD-EPI)NonAf 83 (>60 ml/min/1.73 sqM) Glucose 130 H (74-99) mg/dL Plasma Lactic Acid Yunior (0.7-2.0) mmol/L Calcium 9.5 (8.4-10.2) mg/dL Total Bilirubin 1.0 (0.2-1.3) mg/dL AST 27 (14-36) U/L ALT 24 (4-34) U/L Alkaline Phosphatase 77 (38-126) U/L Troponin I (0.000-0.034) ng/mL NT-Pro-B Natriuret Pep 35238 pg/mL Total Protein 6.2 L (6.3-8.2) g/dL Albumin 3.8 (3.5-5.0) g/dL Influenza Type A (PCR) (Not Detectd) Influenza Type B (PCR) (Not Detectd) RSV (PCR) (Not Detectd) SARS-CoV-2 (PCR) (Not Detectd) 01/11/25 01/11/25 01/11/25 Range/Units 21:10 23:11 23:29 WBC (4.50-10.00) 10*3/uL RBC (4.10-5.20) 10*6/uL Hgb (12.0-15.0) g/dL Hct (37.2-46.3) % MCV (80.0-97.0) fL MCH (27.0-32.0) pg MCHC (32.0-37.0) g/dL Plt Count (140-440) 10*3/uL MPV (9.5-12.2) fL Immature Gran % (Auto) % Neutrophils % % Lymphocytes % % Monocytes % % Eosinophils % % Basophils % % Immature Gran # (0.00-0.04) 10*3/uL Neutrophils # (1.80-7.70) 10*3/uL Lymphocytes # (0.90-5.00) 10*3/uL Monocytes # (0.20-1.00) 10*3/uL Eosinophils # (0.04-0.35) 10*3/uL Basophils # (0.00-0.10) 10*3/uL PT (10.0-12.5) sec INR (<1.2) APTT (22.0-30.0) sec Sodium (137-145) mmol/L Potassium (3.5-5.1) mmol/L Chloride (98-107) mmol/L Carbon Dioxide (22-30) mmol/L Anion Gap mmol/L BUN (7-17) mg/dL Creatinine (0.52-1.04) mg/dL Est GFR (CKD-EPI)AfAm (>60 ml/min/1.73 sqM) Est GFR (CKD-EPI)NonAf (>60 ml/min/1.73 sqM) Glucose (74-99) mg/dL Plasma Lactic Acid Yunior 1.3 (0.7-2.0) mmol/L Calcium (8.4-10.2) mg/dL Total Bilirubin (0.2-1.3) mg/dL AST (14-36) U/L ALT (4-34) U/L Alkaline Phosphatase (38-126) U/L Troponin I 0.040 H* (0.000-0.034) ng/mL NT-Pro-B Natriuret Pep pg/mL Total Protein (6.3-8.2) g/dL Albumin (3.5-5.0) g/dL Influenza Type A (PCR) Not Detected (Not Detectd) Influenza Type B (PCR) Not Detected (Not Detectd) RSV (PCR) Not Detected (Not Detectd) SARS-CoV-2 (PCR) Not Detected (Not Detectd) Disposition Clinical Impression: Acute on chronic hypoxic respiratory failure, New onset of congestive heart failure, Hypokalemia, Healthcare associated bacterial pneumonia Disposition: ADMITTED IP TO THIS HOSP Condition: Stable
--- NOTE | 2025-01-11 21:45 | XR ---
EXAMINATION TYPE: XR chest 1V portable DATE OF EXAM: 01/11/2025 9:40 PM COMPARISON: 12/12/2024 CLINICAL INDICATION: Female, 74 years old with history of SHAYAN, TECHNIQUE: XR chest 1V portable view(s) obtained. FINDINGS: The heart size is mildly prominent. The pulmonary vasculature is prominent. Diffuse increased lung markings are present. This may be greater in the left lower lobe. Correlate fo r congestive heart failure. IMPRESSION: 1. Clinical correlation recommended for congestive heart failure. Findings are worsening from compari son [facility], , 01/11/2025 9:42 PM
[2025-01-11 21:52] LABS: Basophils % (A) 0.4 %; Eosinophils # (A) 0.01 10*3/uL (0.04-0.35); HCT 36.2 % (37.2-46.3); HGB 11.3 g/dL (12.0-15.0); Lymphocytes # (A) 1.38 10*3/uL (0.90-5.00); MCH 26.5 pg (27.0-32.0); MCHC 31.2 g/dL (32.0-37.0); Mean Platelet Volume 10.9 fL (9.5-12.2); Monocytes # (A) 1.51 10*3/uL (0.20-1.00); Monocytes % (A) 5.4 %; Neutrophils % (A) 88.4 %; Platelet Count 343 10*3/uL (140-440); RBC 4.26 10*6/uL (4.10-5.20); RDW 18.1 % (11.5-14.5); WBC 27.72 10*3/uL (4.50-10.00)
[2025-01-11] MEDS: ALBUTEROL NEBULIZED 2.5 MG/3 ML INHALATION SCH (21:57)
[2025-01-11] MEDS: methylPREDNISolone SOD SUCCI 125 MG/2 ML VIAL IV STA (21:58)
[2025-01-11] MEDS: OXYMETAZOLINE 0.05% NASL SPRAY 1 SPRAY BOTTLE NASAL STA (21:58)
[2025-01-11] MEDS: FLUTICASONE NASAL 50MCG/SPRAY 16GM BTL EA NOSTRIL STA (21:58)
[2025-01-11] MEDS: IPRATROPIUM 0.5 MG/2.5 ML NEBU INHALATION STA ×2 (21:59→22:13)
[2025-01-11 22:08] LABS: ALT 24 U/L (4-34); AST 27 U/L (14-36); African American GFR (CKD) >90 (>60 ml/min/1.73 sqM); Albumin 3.8 g/dL (3.5-5.0); Alkaline Phosphatase 77 U/L (38-126); Anion Gap 12 mmol/L; Blood Urea Nitrogen 19 mg/dL (7-17); Calcium 9.5 mg/dL (8.4-10.2); Carbon Dioxide 26 mmol/L (22-30); Chloride 99 mmol/L (98-107); Glucose 130 mg/dL (74-99); Non-African American GFR(CKD) 83 (>60 ml/min/1.73 sqM); Sodium 137 mmol/L (137-145); Total Protein 6.2 g/dL (6.3-8.2)
[2025-01-11 22:11] LABS: Partial Thromboplastin Time 24.8 sec (22.0-30.0); Prothrombin Time 10.9 sec (10.0-12.5)
[2025-01-11 22:15] LABS: NT-Pro-B-Type Natriuretic Pept 18500 pg/mL
[2025-01-11] MEDS: POTASSIUM BICARBONATE/CIT AC 20 MEQ TABLET.EFF PO ONE (23:09)
[2025-01-11] MEDS: ACETAMINOPHEN IV (For NPO) 1,000 MG in EMPTY BAG 1 BAG IVPB ONE (23:12)
[2025-01-11] MEDS: SODIUM CHLORIDE 0.9% 500 ML 500 ML IV ONE (23:52)
[2025-01-11] MEDS: POTASSIUM CHLORIDE 20 MEQ in WATER FOR INJECTION 1 100ML.BAG IVPB STA (23:52)
[2025-01-12] MEDS: AZITHROMYCIN 500 MG in SODIUM CHLORIDE 0.9% 250 ML IVPB STA (00:15)
--- NOTE | 2025-01-12 01:27 | US ---
EXAM: US Duplex Bilateral Lower Extremities Veins CLINICAL HISTORY: ITS.REASON US Reason: new LE swelling, bilat TECHNIQUE: Real-time duplex ultrasound scan of the bilateral lower extremity veins integrating B-mode two-dimensional vascular structure, Doppler spectral analysis, color flow Doppler imaging and compression. COMPARISON: No relevant prior studies available. FINDINGS: Right deep veins: Unremarkable. No DVT in the right common femoral, femoral, proximal deep femoral or popliteal veins. The veins demonstrate normal color flow, are normally compressible, with normal phasic flow and/or augmentation response. Right superficial veins: Unremarkable. No thrombus in the visualized right great saphenous vein. Left deep veins: Unremarkable. No DVT in the left common femoral, femoral, proximal deep femoral or popliteal veins. The veins demonstrate normal color flow, are normally compressible, with normal phasic flow and/or augmentation response. Left superficial veins: Unremarkable. No thrombus in the visualized left great saphenous vein. Soft tissues: No acute findings. No popliteal cyst. IMPRESSION: No DVT
[2025-01-12] MEDS: FUROSEMIDE 10 MG/ML 10 ML VIAL IV STA (01:28)
[2025-01-12 03:06] LABS: ABG HCO3 26 mmol/L (21-25); ABG Oxygen Saturation 94.2 % (94-97); ABG PCO2 35 mmHg (35-45); ABG PH 7.48 (7.35-7.45); ABG PO2 68 mmHg (83-108); ABG TCO2 28 mmol/L (19-24); Allen Test Performed? Yes
[2025-01-12] MEDS ORDERED: IPRATROPIUM-ALBUTEROL 3 ML NEB INHALATION PRN (03:08)
[2025-01-12] MEDS ORDERED: ALBUTEROL NEBULIZED 2.5 MG/3 ML INHALATION PRN ×2 (03:11→10:45)
--- NOTE | 2025-01-12 03:13 | P.HPIM ---
History of Present Illness H&P Date: 01/12/25 Chief Complaint: Shortness of breath Patient is a 74 year old female with COPD on 5 L of oxygen at home, severe pulmonary hypertension, hypertension, hyperlipidemia presented to ED with shortness of breath. She report her shortness of breath started yesteday morning. She used her inhalers but that did not help with her symptoms a lot. Patient was recently admitted to our facility for COPD exacerbation and was discharged on 12/17/24. Associated with that she experiences lower extremity swelling since 4 days. Additionally, she has had an episode of epistaxis, and she reports improvement in her symptoms now. Denies being on blood thinners. Denies fever, chest pain, palpitations, abdominal pain, nausea, vomiting, hematuria, dysuria, hematochezia, melena, headache, slurred speech, numbness, tingling, dizziness, lightheadedness, blurred vision, double vision. ED do cumentation reviewed. In the ED patient was treated with nebulized albuterol, fluticasone, furosemide, DuoNeb, Tylenol, oxymetazoline nasal spray, potassium bicarb 40 mg, potassium chloride 20 mill equivalents, Rocephin Zithromax, Solu- Medrol. Vitals on admission T 99.6 F, SC 107 bpm, RR 20, BP 109/66, SpO2 90% on 15 L nonrebreather Most recent vital SC 81 bpm, RR 20, BP 125/84, SpO2 95% on high flow nasal cannula EKG independently interpreted as sinus tachycardia, rate 106 bpm, incomplete RB BB, QTc 380 ms Chest x-ray shows clinical correlation recommended for congestive heart failure, findings are worsening from comparison Venous Doppler study shows no DVT bilaterally Labs on admission show WBC 27.72, hemoglobin 11.3, MCV 85, platelet 343, INR 1.0, sodium 137, potassium 3.0, BUN 19, creatinine 0.73, glucose 130, lactic acid 1.3, NT proBNP [id number], troponin I 0.04 Review of systems: Pertinent positives and negatives as discussed in HPI, a complete review of systems was performed and all other systems are negative. Physical examination: Vital signs reviewed General: nontoxic, no distress, appears at stated age Derm: warm, dry, intact Head: atraumatic, normocephalic, symmetric Eyes: EOMI, anicteric sclera Mouth: no lip lesion, mucus membranes moist Cardiovascular: S1 S2 reg, no murmur Lungs: CTA bilateral, no rhonchi, no rales, no accessory muscle use Abdominal: soft, non-tender to palpation Extremities: 2+ pitting edema b/l Neuro: Alert, Oriented, Gross neurological examination did not reveal any focal deficits. Psych: well appearing, appropriate affect Assessment/Plan: Patient is a 74 year old female with COPD on 5 L of oxygen at home, severe pulmonary hypertension, hypertension, hyperlipidemia presented to ED with shortness of breath. Patient admitted to internal medicine service. Active: #. Acute on chronic hypoxic respiratory failure #. New onset CHF exacerbation #. Possible community acquired pneumonia #. Leukocytosis, likely secondary to above NT proBNP [id number] Chest x-ray shows clinical correlation recommended for congestive heart failure, findings are worsening from comparison Echo 07/2024 showed EF 55%, severe right ventricle dilatation, mild to moderate right ventricular hypokinesis, flattened septum in diastole consistent with right ventricular volume overload, pulmonary hypertension with RVSP 67, mild MR, moderate TR Received azithromycin, Rocephin, furosemide, Solu-Medrol, breathing treatments in the ED Continue Azithromycin and Rocephin Start Furosemide 40 mg IV Q12HR Continue Duonebs and nebulized Albuterol Continue supplemental oxygen as needed Obtain blood culture, sputum culture, respiratory panel, echocardiogram and chest CTA Monitor CBC Cardiology consulted Pulmonology consulted #. Troponin elevation, likely Type II NSTEMI troponin I 0.04 Cardiac cath in Aug 2024 showed CAD including 30 to 40% mid to distal LAD, 40% O M1, 50% distal RCA stenosis and small aneurysmal portion of mid RCA, normal left sided filling pressures and elevated right-sided filling pressures, precapillary pulmonary htn Continue to trend troponin Continue telemetry monitoring Cardiology consulted #. Hypokalemia K 3.0 Received potassium bicarbonate 40 mg p.o. once, potassium chloride 20 mg IVPB once in the ED Monitor BMP Chronic: #. Hypertension #. Hyperlipidemia #. CAD #. GERD #. Anxiety/Depression Resume home meds once verified by pharmacy F: None E: Replete K N: Heart healthy diet A: Ambulatory DVT prophylaxis: Lovenox 40 mg SQ daily GI prophylaxis: Pantoprazole 40 mg PO daily The patient is admitted with an anticipated more than 2 midnight stay for evaluation of shortness of breath CODE STATUS: FULL CODE Discussed with: Patient Anticipated discharge place: Pending clinical course Dictation was produced using [employer] dictation software. please excuse any grammatical, word or spelling errors. Shawna Marsh MD PGY-1 IM Attestation : Patient seen and examined with district medical examiner. Agree with above assessment and plan . 74 year old female with COPD on 5 L of oxygen at home, severe pulmonary hypertension, hypertension, hyperlipidemia presented to ED with shortness of breath. She report her shortness of breath started yesteday jessica kirstie. She used her inhalers but that did not help with her symptoms a lot. Patient was recently admitted to our facility for COPD exacerbation and was discharged on 12/17/24. Associated with that she experiences lower extremity swelling since for the past few days. She is usually on 4-5 L nasal cannula oxygen at home . Currently on high flow nasal cannula 74% FiO2 . Chest x-ray showing pulmonary vascular congestion. CT of the chest PE protocol did not show any PE but showing left upper lobe pneumonia with emphysematous changes. Labs remarkable for significant leukocytosis. Patient will be admitted for congestive heart failure management likely diastolic in nature Echo 07/2024 showed EF 55%, severe right ventricle dilatation, mild to moderate right ventricular hypokinesis, flattened septum in diastole consistent with right ventricular volume overload, pulmonary hypertension with RVSP 67 and treatment of community-acquired pneumonia. Will continue with Rocephin and azithromycin. Patient is full code and low threshold for noninvasive and invasive mechanical ventilation . Continue with diuresis and potassium replacement. Continue with DuoNebs as needed. Pulmonology and cardiology consulted. Elevated troponin which is likely demand ischemia from pneumonia and congestive heart failure. Time spent : 55 min Past Medical History Past Medical History: COPD, Hyperlipidemia, Hypertension, Respiratory Disorder Additional Past Medical History / Comment(s): Aortic aneurysm. Pulmonary Hypertension History of Any Multi-Drug Resistant Organisms: None Reported Past Surgical History: Breast Surgery, Hysterectomy Additional Past Surgical History / Comment(s): Knee replacement. Wrist surgery. Cataract surgery Past Anesthesia/Blood Transfusion Reactions: No Reported Reaction Past Psychological History: Depression Smoking Status: Former smoker Past Alcohol Use History: None Reported Past Drug Use History: None Reported - Past Family History Mother Family Medical History: Cancer, Diabetes Mellitus Additional Family Medical History / Comment(s): from lung cancer Father Additional Family Medical History / Comment(s): from brain aneurysm Medications and Allergies Home Medications Medication Instructions Recorded Confirmed Type Aspirin EC [Ecotrin Low Dose] 81 mg PO DAILY 08/06/24 12/11/24 History Atorvastatin [Lipitor] 40 mg PO DAILY 08/06/24 12/11/24 History Cetirizine HCl [Zyrtec] 10 mg PO DAILY 08/06/24 12/11/24 History Ergocalciferol [Vitamin D2 (1250 1,250 mcg PO MO 08/06/24 12/11/24 History Mcg = 06335 Iu)] Fluticasone/Umeclidin/Vilanter 1 puff INHALATION RT-DAILY 08/06/24 12/11/24 History [Trelegy Ellipta 200-62.5-25] Ipratropium-Albuterol Nebulize 3 ml INHALATION RT-QID PRN 08/06/24 12/11/24 History [Duoneb 0.5 mg-3 mg/3 ml Soln] Ipratropium/Albuter 20-100Mcg 1 puff INHALATION RT-QID 08/06/24 12/11/24 History [Combivent Respimat 20-100Mcg Inhaler] [place] 20mg 20 mg PO DAILY 08/06/24 12/11/24 History Sertraline [Zoloft] 50 mg PO DAILY 08/06/24 12/11/24 History Acetaminophen Tab [Tylenol] 650 mg PO Q4HR PRN tab 08/13/24 12/11/24 Rx Pantoprazole [Protonix] 40 mg PO AC-BRKFST #30 tab 08/13/24 12/11/24 Rx guaiFENesin [Mucinex] 1,200 mg PO BID #30 tab 08/13/24 12/11/24 Rx Metoprolol Succinate (ER) [Toprol 12.5 mg PO DAILY #60 tab 09/25/24 12/11/24 Rx XL] Albuterol Sulfate [Ventolin HFA] 2 puff INHALATION RT-Q4H PRN 10/24/24 12/11/24 History predniSONE [Deltasone] 20 mg PO DAILY #30 tab 12/09/24 12/11/24 Rx Fludrocortisone [Florinef] 0.1 mg PO DAILY #0 tab 12/17/24 Rx Allergies Allergy/AdvReac Type Severity Reaction Status Date / Time levofloxacin [From Levaquin] Allergy Unknown Verified 01/11/25 21:19 tetracycline Allergy Unknown Verified 01/11/25 21:19 Physical Exam Vitals: Vital Signs Temp Pulse Resp BP Pulse Ox FiO2 01/12/25 01:16 81 20 125/84 95 01/11/25 23:46 74 01/11/25 22:32 101 H 70 01/11/25 22:14 105 H 01/11/25 22:13 105 H 01/11/25 21:59 102 H 01/11/25 21:19 99.6 F 99 20 109/66 94 L 01/11/25 21:15 107 H 20 109/66 90 L Intake and Output 01/11/25 01/11/25 01/12/25 14:59 22:59 06:59 Other: Weight 65.317 kg Results CBC & Chem 7: 01/11/25 21:10 01/11/25 21:10 Labs: Abnormal Lab Results - Last 24 Hours (Table) 01/11/25 01/11/25 01/11/25 Range/Units 21:10 21:10 21:10 WBC 27.72 H (4.50-10.00) 10*3/uL Hgb 11.3 L (12.0-15.0) g/dL Hct 36.2 L (37.2-46.3) % MCH 26.5 L (27.0-32.0) pg MCHC 31.2 L (32.0-37.0) g/dL Immature Gran # 0.22 H (0.00-0.04) 10*3/uL Neutrophils # 24.50 H (1.80-7.70) 10*3/uL Monocytes # 1.51 H (0.20-1.00) 10*3/uL Eosinophils # 0.01 L (0.04-0.35) 10*3/uL Potassium 3.0 L (3.5-5.1) mmol/L BUN 19 H (7-17) mg/dL Glucose 130 H (74-99) mg/dL Troponin I 0.040 H* (0.000-0.034) ng/mL Total Protein 6.2 L (6.3-8.2) g/dL
--- NOTE | 2025-01-12 03:44 | CT ---
EXAM: CT Angiography Chest With Intravenous Contrast CLINICAL HISTORY: ITS.REASON CT Reason: Shortness of breath TECHNIQUE: Axial computed tomographic angiography images of the chest with intravenous contrast. CTDI is 27 mGy and DLP is 243.8 mGy-cm. This CT exam was performed using one or more of the following dose reduction techniques: automated exposure control, adjustment of the mA and/or kV according to patient size, and/or use of iterative reconstruction technique. MIP reconstructed images were created and reviewed. COMPARISON: 12/04/2024 FINDINGS: Pulmonary arteries: Pulmonary arterial hypertension with dilatation of the main pulmonary artery. No pulmonary embolism. Aorta: No acute findings. No thoracic aortic aneurysm. Lungs: Left upper lobe infiltrate new since prior exam. Severe diffuse emphysematous change. No mass. Pleural space: Unremarkable. No significant effusion. No pneumothorax. Heart: Cardiomegaly. Coronary artery calcification. No significant pericardial effusion. No evidence of RV dysfunction. Mediastinum: Mediastinal lymphadenopathy unchanged from prior exam. Bones/joints: No acute fracture. No dislocation. Soft tissues: Unremarkable. Lymph nodes: See above. IMPRESSION: Left upper lobe pneumonia No pulmonary embolus Severe changes COPD Cardiomegaly Findings consistent with pulmonary arterial hypertension
[2025-01-12 03:52] LABS: Influenza A Not Detected (Not Detectd); Influenza B Not Detected (Not Detectd); RSV Not Detected (Not Detectd)
--- NOTE | 2025-01-12 04:51 | P.CNPUL ---
History of Present Illness Consult date: 01/12/25 Requesting physician: Sabine Dorsey Reason for consult: COPD Chief complaint: Shortness of breath History of present illness: Patient is a 74-year-old female with past medical history significant for COPD, interstitial fibrosis, pulmonary hypertension suspected group 3, cor pulmonale, chronic hypoxemic respiratory failure. Echocardiogram from July, estimating normal LV function, mild mitral regurgitation, RVSP of 67 with RV dysfunction. Did have a left and right heart catheterization done August, with PA pressure of 63/39 mmHg, PCWP 15. PAH felt to be related to patient's chronic lung disease. Also, patient was found to have mild nonobstructive coronary disease. Of note, patient recently hospitalized Nov, 2024, she had a near syncopal event. Patient brought into the emergency department late last night by EMS, in a state of respiratory distress, placed on high flow cannula/Airvo. She is an ECF resident from [facility]. Chief complaint of acute on chronic shortness of breath starting yesterday morning. Intermittent improvement with breathing treatments. Workup in the ED including x-ray which was remarkable for cardiomegaly, pulmonary vascular congestion, and diffuse increased lung markings bilaterally, greater on the left. Labs including a CBC with a WBC count of 27.7, hemoglobin 11.3, platelets 343. CMP with a sodium 137, potassium 3, chloride 99, serum bicarb 26, BUN 19, creatinine 0.73, glucose 130. Lactic 1.3. LFTs unremarkable. EKG: Sinus tachycardia, rate 106 bpm, frequent PACs, incomplete RBBB pattern. Troponin 0.04. NT proBNP significantly elevated at 18,500. Did receive a 80 mg dose of Lasix earlier in the ED. Patient currently being evaluated in the ED. She is resting comfortably on Airvo 50 L and 75%. She is awake and alert without signs of CO2 narcosis. ABG done previously with a PaO2 of 68, pCO2 35, pH of 7.48. Tachypneic. Speaking in complete sentences. Patient states that her increased difficulty in breathing started approximately 24 hours ago. She has had increased swelling in her lower extremities, starting approximately 4 days ago. Denies missing any doses of her Lasix. Denies chest pain, heart palpitations, lightheadedness or syncopal events. She denies any URI-like symptoms. She has a chronic cough, which is mostly dry. Denies any purulent sputum production, hemoptysis, or chest pain. Denies any fevers or chills. Previously started on azithromycin and Rocephin in the ED, which are essentially empiric. Current vital signs: Temperature 99.6 F, heart rate 91 bpm, blood pressure 95/69 mmHg, tachypneic, SpO2 recorded as 94% on above-mentioned Airvo settings. Review of Systems Constitutional: Reports fatigue, Reports weight gain, Denies chills, Denies fever, Denies poor appetite, Denies sweats, Denies weight loss Ears, nose, mouth and throat: Reports epistaxis (During previous hospitalization), Denies headache, Denies nasal congestion, Denies nasal discharge, Denies post-nasal drip, Denies sinus pain, Denies sinus pressure, Denies sore throat Cardiovascular: Reports leg edema, Denies chest pain, Denies lightheadedness, Denies orthopnea, Denies palpitations, Denies paroxysmal nocturnal dyspnea, Denies syncope Respiratory: Reports as per HPI Gastrointestinal: Denies abdominal pain, Denies diarrhea, Denies nausea, Denies vomiting Genitourinary: Denies dysuria Musculoskeletal: Denies limitation of motion Integumentary: Denies rash Neurological: Denies seizures, Denies syncope Psychiatric: Reports anxiety, Reports depression, Denies suicidal ideation Past Medical History Past Medical History: COPD, Hyperlipidemia, Hypertension, Respiratory Disorder Additional Past Medical History / Comment(s): Aortic aneurysm. Pulmonary Hypertension History of Any Multi-Drug Resistant Organisms: None Reported Past Surgical History: Breast Surgery, Hysterectomy Additional Past Surgical History / Comment(s): Knee replacement. Wrist surgery. Cataract surgery Past Anesthesia/Blood Transfusion Reactions: No Reported Reaction Past Psychological History: Depression Smoking Status: Former smoker Past Alcohol Use History: None Reported Past Drug Use History: None Reported - Past Family History Mother Family Medical History: Cancer, Diabetes Mellitus Additional Family Medical History / Comment(s): from lung cancer Father Additional Family Medical History / Comment(s): from brain aneurysm Medications and Allergies Home Medications Medication Instructions Recorded Confirmed Type Aspirin EC [Ecotrin Low Dose] 81 mg PO DAILY 08/06/24 12/11/24 History Atorvastatin [Lipitor] 40 mg PO DAILY 08/06/24 12/11/24 History Cetirizine HCl [Zyrtec] 10 mg PO DAILY 08/06/24 12/11/24 History Ergocalciferol [Vitamin D2 (1250 1,250 mcg PO MO 08/06/24 12/11/24 History Mcg = 96716 Iu)] Fluticasone/Umeclidin/Vilanter 1 puff INHALATION RT-DAILY 08/06/24 12/11/24 History [Trelegy Ellipta 200-62.5-25] Ipratropium-Albuterol Nebulize 3 ml INHALATION RT-QID PRN 08/06/24 12/11/24 History [Duoneb 0.5 mg-3 mg/3 ml Soln] Ipratropium/Albuter 20-100Mcg 1 puff INHALATION RT-QID 08/06/24 12/11/24 History [Combivent Respimat 20-100Mcg Inhaler] [place] 20mg 20 mg PO DAILY 08/06/24 12/11/24 History Sertraline [Zoloft] 50 mg PO DAILY 08/06/24 12/11/24 History Acetaminophen Tab [Tylenol] 650 mg PO Q4HR PRN tab 08/13/24 12/11/24 Rx Pantoprazole [Protonix] 40 mg PO AC-BRKFST #30 tab 08/13/24 12/11/24 Rx guaiFENesin [Mucinex] 1,200 mg PO BID #30 tab 08/13/24 12/11/24 Rx Metoprolol Succinate (ER) [Toprol 12.5 mg PO DAILY #60 tab 09/25/24 12/11/24 Rx XL] Albuterol Sulfate [Ventolin HFA] 2 puff INHALATION RT-Q4H PRN 10/24/24 12/11/24 History predniSONE [Deltasone] 20 mg PO DAILY #30 tab 12/09/24 12/11/24 Rx Fludrocortisone [Florinef] 0.1 mg PO DAILY #0 tab 12/17/24 Rx Allergies Allergy/AdvReac Type Severity Reaction Status Date / Time levofloxacin [From Levaquin] Allergy Unknown Verified 01/11/25 21:19 tetracycline Allergy Unknown Verified 01/11/25 21:19 Physical Exam Vitals: Vital Signs Temp Pulse Resp BP Pulse Ox FiO2 01/12/25 01:16 81 20 125/84 95 01/11/25 23:46 74 01/11/25 22:32 101 H 70 01/11/25 22:14 105 H 01/11/25 22:13 105 H 01/11/25 21:59 102 H 01/11/25 21:19 99.6 F 99 20 109/66 94 L 01/11/25 21:15 107 H 20 109/66 90 L Intake and Output 01/11/25 01/11/25 01/12/25 14:59 22:59 06:59 Other: Weight 65.317 kg GENERAL EXAM: Alert, 74-year-old female, on Airvo 50 L and 75%, tachypneic. Speaking in complete sentences. No accessory muscle use but HEAD: Normocephalic and atraumatic EYES: Normal reaction of pupils, equal size. NOSE: Clear with pink turbinates. THROAT: No erythema or exudates. NECK: No masses, no JVD. CHEST: No chest wall deformity. LUNGS: Equal air entry with bibasilar rales. No wheeze, rhonchi or dullness. CVS: S1 and S2 normal with no audible murmur, regular rhythm. No extra heart sounds ABDOMEN: No hepatosplenomegaly, active bowel sounds, no guarding or rigidity. SPINE: No scoliosis or deformity SKIN: No rashes CENTRAL NERVOUS SYSTEM: No focal deficits, tone is normal in all 4 extremities. EXTREMITIES: There is no bilateral lower extremity pitting edema, 2+. No cy anosis. Extremities warm. Peripheral pulses are intact. Results - Laboratory Findings CBC and BMP: 01/11/25 21:10 01/11/25 21:10 PT/INR, D-dimer PT 10.9 sec (10.0-12.5) 01/11/25 21:10 INR 1.0 (<1.2) 01/11/25 21:10 Abnormal lab findings: Abnormal Labs 01/11/25 01/11/25 01/11/25 21:10 21:10 21:10 WBC 27.72 H Hgb 11.3 L Hct 36.2 L MCH 26.5 L MCHC 31.2 L Immature Gran # 0.22 H Neutrophils # 24.50 H Monocytes # 1.51 H Eosinophils # 0.01 L Potassium 3.0 L BUN 19 H Glucose 130 H Troponin I 0.040 H* Total Protein 6.2 L - Diagnostic Findings Chest x-ray: image reviewed Assessment and Plan Assessment: Acute COPD exacerbation Pulmonary hypertension with RV dysfunction and cor pulmonale Acute on chronic hypoxemic respiratory failure, currently requiring Airvo 50 L and 75%, chest x-ray showing cardiomegaly, pulmonary vascular congestion, increased interstitial markings bilaterally, greater on the left. NT proBNP 18,500. Bilateral lower extremity edema Acute leukocytosis Hypokalemia, replaced Elevated troponins, likely secondary to supply/demand mismatch COPD/emphysema Pulmonary hypertension, suspect group 3, echocardiogram from 08/07/2024 showed a preserved LV function, nevertheless, the patient had severe pulmonary hypertension. RV was severely dilated and estimated PA pressure was 67. She had also moderate TR. Did have a follow-up confirmatory right-sided heart cathet erization with a mean pulmonary artery pressure of 47 mmHg and pulmonary capillary wedge pressure of 15 suggestive of pre-capillary pulmonary hypertension. Chronic hypoxemic respiratory failure, typically wears 4 to 5 L/min nasal cannula while at home History of nonobstructive coronary artery disease Infrarenal abdominal aortic aneurysm, 4.7 cm follows with vascular surgery outpatient Systemic hypertension History of hyperlipidemia Peripheral vascular disease and carotid artery stenosis Former tobacco smoker Anxiety/depression Plan: Patient's medications, labs, imaging reviewed Continue high flow oxygen, currently on Airvo 50 L and 75% ABG noted Continue Lasix 40 mg twice daily Continue DuoNebs [id number] Add Symbicort inhaler, may substitute for Trelegy inhaler if made available Continue IV Solu-Medrol Monitor and replace electrolytes per protocol Antibiotics previously added and are empiric. Check procalcitonin Case to be reviewed with Dr. Stover, further recommendations to follow I have personally seen and examined the patient, performed the documentation and the assessment and plan as written. Number of minutes spent on the visit:20 This dictation was produced using [employer] dictation software please excuse grammatical errors Time with Patient: Greater than 30
[2025-01-12 06:08] LABS: HCT 33.6 % (37.2-46.3); HGB 10.4 g/dL (12.0-15.0); MCH 25.9 pg (27.0-32.0); MCV 83.6 fL (80.0-97.0); Mean Platelet Volume 10.6 fL (9.5-12.2); Platelet Count 290 10*3/uL (140-440); RBC 4.02 10*6/uL (4.10-5.20); RDW 18.1 % (11.5-14.5)
[2025-01-12 06:26] LABS: African American GFR (CKD) >90 (>60 ml/min/1.73 sqM); Anion Gap 10 mmol/L; Blood Urea Nitrogen 17 mg/dL (7-17); Carbon Dioxide 27 mmol/L (22-30); Chloride 100 mmol/L (98-107); Glucose 189 mg/dL (74-99); Magnesium 1.8 mg/dL (1.6-2.3); Non-African American GFR(CKD) >90 (>60 ml/min/1.73 sqM); Potassium 3.4 mmol/L (3.5-5.1); Sodium 137 mmol/L (137-145)
[2025-01-12] MEDS: ENOXAPARIN 40 MG/0.4 ML SYRINGE SQ SCH (08:04)
[2025-01-12] MEDS: methylPREDNISolone SOD SUCCI 40 MG/ML 1 ML VIAL IV SCH (08:05)
[2025-01-12] MEDS: FUROSEMIDE 10 MG/ML 4 ML VIAL IV SCH (08:07)
[2025-01-12] MEDS: POTASSIUM CHLORIDE ER 20 MEQ TAB.ER PO SCH (08:09)
[2025-01-12] MEDS: AZITHROMYCIN 500 MG in SODIUM CHLORIDE 0.9% 250 ML IVPB SCH (08:13)
[2025-01-12] MEDS: SYMBICORT 160-4.5 MCG INHALER INHALATION SCH (09:07)
[2025-01-12] MEDS: IPRATROPIUM-ALBUTEROL 3 ML NEB INHALATION SCH (09:07)
--- NOTE | 2025-01-12 10:50 | P.PN ---
Subjective Progress Note Date: 01/12/25 Hospital Course: Patient is a 74-year-old female with a past medical history of advanced COPD w ith chronic hypoxic respiratory failure home oxygen dependent on 4 L, severe pulmonary hypertension, infrarenal abdominal aortic aneurysm reported at approximately 6 cm and awaiting repair, hypertension, hyperlipidemia, and former smoker with > 40 pack per year history. Patient reports that she follows with Dr. 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 presented to ED with shortness of breath. She report her shortness of breath started yesteday morning. She used her inhalers but that did not help with her symptoms a lot. Patient was recently admitted to our facility for COPD exacerbation and was discharged on 12/17/24. Associated with that she experiences lower extremity swelling since 4 days. Additionally, she has had an episode of epistaxis, and she reports improvement in her symptoms now. Denies being on blood thinners. Denies fever, chest pain, palpitations, abdominal pain, nausea, vomiting, hematuria, dysuria, hematochezia, melena, headache, slurred speech, numbness, tingling, dizziness, lightheadedness, blurred vision, double vision. ED documentation reviewed. In the ED patient was treated with nebulized albuterol, fluticasone, furosemide, DuoNeb, Tylenol, oxymetazoline nasal spray, potassium bicarb 40 mg, potassium chloride 20 mill equivalents, Rocephin Zithromax, Solu-Medrol. Vitals on admission T 99.6 F, W[place] 107 bpm, RR 20, BP 109/66, SpO2 90% on 15 L nonrebreather.EKG :sinus tachycardia, rate 106 bpm, incomplete RBBB, QTc 380 ms.Chest x-ray shows clinical correlation recommended for congestive heart failure, findings are worsening from comparison.Venous Doppler study shows no DVT bilaterally Labs on admission show WBC 27.72, hemoglobin 11.3, MCV 85, platelet 343, INR 1.0, sodium 137, potassium 3.0, BUN 19, creatinine 0.73, glucose 130, lactic acid 1.3, NT proBNP 62011, troponin I 0.04 Admitted for further management of acute on chronic hypoxic respiratory failure, new onset CHF exacerbation and possible community-acquired pneumonia, troponin elevation, cardiology and pulmonology on consult, started on IV Lasix, IV antibiotics. Of note, she was discharged from our institution on 12/11 after being treated for COPD exacerbation, was noted to have orthostatic hypotension, epistaxis, sent home on fludrocortisone for possible underlying adrenal insufficiency in setting of chronic steroid use, she was discharged to subacute rehab at that time. Her Aldactone and Bumex discontinued 01/12: Seen examined at bedside in the ER. Patient states that she feels okay, her shortness of breath is improved, she denies chest discomfort, lower extremity swelling persistent. She is seen on high flow nasal cannula 45 L 70%. Blood pressure soft 109/75. Lab work showed improving leukocytosis 18.7, hemoglobin 10.4, potassium improved to 3.4, normal creatinine 0.6, troponin trending down to 0.035, procalcitonin came back negative. Pertinent positives and negatives as discussed above, a complete review of systems was performed and all other systems are negative. Vitals Signs Reviewed. General: [nontoxic], [no distress], [appears at stated age] Derm: [warm], [dry] Head: [atraumatic], [normocephalic], [symmetric] Eyes: [EOMI], [no lid lag], [anicteric sclera] Mouth: [no lip lesion], [mucus membranes moist] Cardiovascular: [S1S2 reg], [murmur] Lungs: [Diminished bilateral breath sounds, no wheezing, on high flow nasal cannula Abdominal: [soft], [ nontender to palpation], [no guarding], [no appreciable organomegaly] Ext: [no gross muscle atrophy], [2+ bilateral pitting edema up to the knees], [no contractures] Neuro: [ CN II-XI grossly intact], [no focal neuro deficits] Psych: [Alert], [oriented], [appropriate affect] Assessment and Plan: Acute on chronic respiratory failure with hypoxia Possible community-acquired pneumonia Advanced COPD without acute exacerbation severe pulmonary hypertension -Consult to Pulmonology and cardiology, appreciate recommendations -Continue strict I's and O's, daily weights, Lasix 40 IV twice daily, monitor CBC and BMP daily -TTE was ordered by admitting team, pending -Continue azithromycin 500 mg daily and ceftriaxone 2 g daily SOT 01/11 -Oxygenation to be administered and titrated as needed to maintain SPO2 equal to or greater than 92% -Telemetry monitoring. -Monitor pulse-oximetry -Duonebs scheduled 4 times daily and as needed for SOB and/or wheezing -Incentive Spirometry -Steroids: Solu-Medrol 40 IV every 8 hours -Continue Spiriva 2 puffs daily, Ranexa 20 mg 3 times daily and Symbicort 160- 4.5 mcg inhaler 2 puffs twice daily. Elevated troponin, likely secondary to demand ischemia resulting from hypoxia -Cardiology consulted, appreciate recommendations -Telemetry monitoring -Trend troponins Hypokalemia: While on IV diuretics, will supplement with 40 mEq of potassium twice daily Possible adrenal insufficiency due to chronic steroid use, will hold fludrocortisone 0.1 daily while patient is on high-dose of Solu-Medrol Infrarenal abdominal aortic aneurysm -Patient denies having any complaints including abdominal pain, back pain, experiencing any numbness/tingling/weakness in her extremities. Continue to follow-up with cardiology Hypertension -Monitor vital signs and continue daily medication regimen with Toprol-XL 12.5 daily Hyperlipidemia -Continue daily medication regimen with atorvastatin 40 mg daily. Anxiety and depression -Continue Zoloft 50 mg daily. CODE STATUS: Full code DVT prophylaxis: Lovenox Anticipated discharge date: Pending clinical course Anticipated discharge place: Pending clinical course Objective - Vital Signs Vital signs: Vital Signs Temp 98.7 F 01/12/25 05:37 Pulse 91 01/12/25 10:25 Resp 17 01/12/25 10:25 BP 104/75 01/12/25 10:25 Pulse Ox 95 01/12/25 10:25 FiO2 70 01/12/25 09:07 Intake & Output 01/11/25 01/12/25 01/12/25 18:59 06:59 18:59 Weight 65.317 kg - Labs CBC & Chem 7: 01/12/25 05:40 01/12/25 05:40 Labs: Abnormal Lab Results - Last 24 Hours (Table) 01/11/25 01/11/25 01/11/25 Range/Units 21:10 21:10 21:10 WBC 27.72 H (4.50-10.00) 10*3/uL RBC (4.10-5.20) 10*6/uL Hgb 11.3 L (12.0-15.0) g/dL Hct 36.2 L (37.2-46.3) % MCH 26.5 L (27.0-32.0) pg MCHC 31.2 L (32.0-37.0) g/dL Immature Gran # 0.22 H (0.00-0.04) 10*3/uL Neutrophils # 24.50 H (1.80-7.70) 10*3/uL Monocytes # 1.51 H (0.20-1.00) 10*3/uL Eosinophils # 0.01 L (0.04-0.35) 10*3/uL ABG pH (7.35-7.45) ABG pO2 (83-108) mmHg ABG HCO3 (21-25) mmol/L ABG Total CO2 (19-24) mmol/L Hemoglobin (11.4-16.0) gm/dL Potassium 3.0 L (3.5-5.1) mmol/L BUN 19 H (7-17) mg/dL Glucose 130 H (74-99) mg/dL Troponin I 0.040 H* (0.000-0.034) ng/mL Total Protein 6.2 L (6.3-8.2) g/dL 01/12/25 01/12/25 01/12/25 Range/Units 02:52 05:40 05:40 WBC 18.70 H (4.50-10.00) 10*3/uL RBC 4.02 L (4.10-5.20) 10*6/uL Hgb 10.4 L (12.0-15.0) g/dL Hct 33.6 L (37.2-46.3) % MCH 25.9 L (27.0-32.0) pg MCHC 31.0 L (32.0-37.0) g/dL Immature Gran # (0.00-0.04) 10*3/uL Neutrophils # (1.80-7.70) 10*3/uL Monocytes # (0.20-1.00) 10*3/uL Eosinophils # (0.04-0.35) 10*3/uL ABG pH 7.48 H (7.35-7.45) ABG pO2 68 L (83-108) mmHg ABG HCO3 26 H (21-25) mmol/L ABG Total CO2 28 H (19-24) mmol/L Hemoglobin 10.8 L (11.4-16.0) gm/dL Potassium (3.5-5.1) mmol/L BUN (7-17) mg/dL Glucose (74-99) mg/dL Troponin I 0.035 H* (0.000-0.034) ng/mL Total Protein (6.3-8.2) g/dL 01/12/25 Range/Units 05:40 WBC (4.50-10.00) 10*3/uL RBC (4.10-5.20) 10*6/uL Hgb (12.0-15.0) g/dL Hct (37.2-46.3) % MCH (27.0-32.0) pg MCHC (32.0-37.0) g/dL Immature Gran # (0.00-0.04) 10*3/uL Neutrophils # (1.80-7.70) 10*3/uL Monocytes # (0.20-1.00) 10*3/uL Eosinophils # (0.04-0.35) 10*3/uL ABG pH (7.35-7.45) ABG pO2 (83-108) mmHg ABG HCO3 (21-25) mmol/L ABG Total CO2 (19-24) mmol/L Hemoglobin (11.4-16.0) gm/dL Potassium 3.4 L (3.5-5.1) mmol/L BUN (7-17) mg/dL Glucose 189 H (74-99) mg/dL Troponin I (0.000-0.034) ng/mL Total Protein (6.3-8.2) g/dL
--- NOTE | 2025-01-12 12:43 | P.CRDCN ---
History of Present Illness Consult date: 01/12/25 Reason for Consult (text): New onset CHF History of present illness: This is a 74-year-old female patient of Dr. Fontana with past medical history of abdominal aortic aneurysm of 6 cm waiting for repair, hypertension, hyperlipidemia, mild nonobstructing coronary artery disease, severe pulmonary hypertension, carotid artery stenosis, COPD, chronic hypoxic respiratory failure on home O2 at 4 L nasal cannula. We have been asked to evaluate the patient for new onset of heart failure. Patient states that she came into the hospital due to trouble breathing that has been going on for 4 years. She also complains of lower extremity edema. She states that yesterday her pulse ox was reading 60s and 70s so she decided to come in to the hospital for further evaluation. Blood pressure 107/72, heart rate 98, pulse ox 98% on high flow cannula FiO2 of 65. Patient has been started on IV antibiotics, nebulizer treatments and IV steroids. -EKG: Sinus rhythm 106 bpm with PACs -Chest x-ray: CHF. -Venous duplex bilateral lower extremities: No DVT. -CTA chest: Left upper lobe pneumonia. No pulmonary embolus. Severe changes of COPD. Cardiomegaly. Pulmonary artery hypertension. -Laboratory studies: WBC 18.7, hemoglobin 10.4. Potassium 3.4, troponin 0.04 and 0.035. proBNP 18,500. Procalcitonin less than 0.2. Cepheid viral panel not detected. -Home cardiac medications: Aspirin 81 mg daily, atorvastatin 40 mg at bedtime, Lasix 40 mg daily, Toprol-XL 12.5 mg daily, sildenafil 20 mg 3 times daily. -Cardiac catheterization performed 09/24/2024 revealed CAD with 30 to 40% mid to distal LAD, 40% OM1, 50% distal RCA, small aneurysmal portion of the mid RCA. Normal left-sided filling pressures and elevated right sided filling pressures. Precapillary pulmonary hypertension. - Echocardiogram performed on 08/06/2024 revealed EF of 55%, severe right ventricular dilation with RV: LV ratio of 1.95. Mild to moderate right ventricular hypokinesis. Pulmonary hypertension with RVSP 67. This may be underestimated secondary to RV failure. Mild mitral regurgitation. Moderate tricuspid regurgitation. Review Of Systems: At the time of my exam: CONSTITUTIONAL: Denies fever or chills. HEENT: Denies blurred vision, vision changes, or eye pain. Denies hemoptysis CARDIOVASCULAR: Denies chest pain. Denies orthopnea. Denies PND. Denies palpitations RESPIRATORY: Denies shortness of breath. GASTROINTESTINAL: Denies abdominal pain. Denies nausea or vomiting. HEMATOLOGIC: Denies bleeding disorders. GENITOURINARY: Denies any blood in urine. SKIN: Denies puritis. Denies rash. Physical examination: Gen: This is a 74-year-old female in no acute distress VS: reviewed HEENT: Head is atraumatic, normocephalic. Pupils equal, round. Sclerae is anicteric. NECK: Supple. No JVD. LUNGS: Clear to auscultation. No wheezes or rhonchi. No intercostal retractions. HEART: Regular rate and rhythm. No murmur. ABDOMEN: Soft No tenderness. EXTREMITIES: Moderate bilateral lower extremity pitting edema. No calf tenderness. NEUROLOGICAL: Patient is awake, alert and oriented x3. Assessment: Elevated troponins secondary to acute hypoxic respiratory failure Acute hypoxic respiratory failure Acute COPD exacerbation Left upper lobe pneumonia HTN HLD Mild nonobstructive CAD Severe Pulmonary HTN Carotid artery stenosis COPD Chronic hypoxic respiratory failure on home O2 at 4L Chronic cor pulmonale AAA Plan: Resume patient's home cardiac medications Patient has been started on IV Lasix 40 mg every 12h Monitor I&O Weights renal function and electrolytes No need to repeat echocardiogram as this was done in July Further recommendations to follow based upon clinical course Thank you kindly for this consultation. Nurse practitioner note has been reviewed, I agree with documented findings and plan of care. Patient was seen and examined. Past Medical History Past Medical History: COPD, Hyperlipidemia, Hypertension, Respiratory Disorder Additional Past Medical History / Comment(s): Aortic aneurysm. Pulmonary Hypertension History of Any Multi-Drug Resistant Organisms: None Reported Past Surgical History: Breast Surgery, Hysterectomy Additional Past Surgical History / Comment(s): Knee replacement. Wrist surgery. Cataract surgery Past Anesthesia/Blood Transfusion Reactions: No Reported Reaction Past Psychological History: Depression Smoking Status: Former smoker Past Alcohol Use History: None Reported Past Drug Use History: None Reported - Past Family History Mother Family Medical History: Cancer, Diabetes Mellitus Additional Family Medical History / Comment(s): from lung cancer Father Additional Family Medical History / Comment(s): from brain aneurysm Medications and Allergies Home Medications Medication Instructions Recorded Confirmed Type Atorvastatin [Lipitor] 40 mg PO HS 08/06/24 01/12/25 History Cetirizine HCl [Zyrtec] 10 mg PO DAILY 08/06/24 01/12/25 History Ergocalciferol [Vitamin D2 (1250 1,250 mcg PO MO 08/06/24 01/12/25 History Mcg = 89992 Iu)] Fluticasone/Umeclidin/Vilanter 1 puff INHALATION RT-DAILY 08/06/24 01/12/25 History [Trelegy Ellipta 200-62.5-25] Ipratropium-Albuterol Nebulize 3 ml INHALATION RT-QID PRN 08/06/24 01/12/25 Hi story [Duoneb 0.5 mg-3 mg/3 ml Soln] Ipratropium/Albuter 20-100Mcg 1 puff INHALATION RT-QID 08/06/24 01/12/25 History [Combivent Respimat 20-100Mcg Inhaler] Sertraline [Zoloft] 50 mg PO DAILY 08/06/24 01/12/25 History guaiFENesin [Mucinex] 1,200 mg PO BID #30 tab 08/13/24 01/12/25 Rx Metoprolol Succinate (ER) [Toprol 12.5 mg PO DAILY #60 tab 09/25/24 01/12/25 Rx XL] Albuterol Sulfate [Ventolin HFA] 2 puff INHALATION RT-Q4H PRN 10/24/24 01/12/25 History Fludrocortisone [Florinef] 0.1 mg PO DAILY #0 tab 12/17/24 01/12/25 Rx Acetaminophen Tab [Tylenol] 650 mg PO Q6HR PRN 01/12/25 01/12/25 History Aspirin 81 mg PO DAILY 01/12/25 01/12/25 History Dicyclomine [Bentyl] 10 mg PO TID 01/12/25 01/12/25 History Furosemide [Lasix] 40 mg PO DAILY 01/12/25 01/12/25 History Omeprazole 40 mg PO DAILY 01/12/25 01/12/25 History Sildenafil Citrate [Sildenafil] 20 mg PO TID 01/12/25 01/12/25 History predniSONE [Deltasone] 10 mg PO DAILY 01/12/25 01/12/25 History Allergies Allergy/AdvReac Type Severity Reaction Status Date / Time levofloxacin [From Levaquin] Allergy Unknown Verified 01/12/25 10:22 tetracycline Allergy Unknown Verified 01/12/25 10:22 Physical Exam Vitals: Vital Signs Temp Pulse Resp BP Pulse Ox FiO2 01/12/25 06:05 87 16 111/76 93 L 01/12/25 05:37 98.7 F 84 18 98/75 96 01/12/25 04:27 70 01/12/25 03:50 87 20 94/69 93 L 01/12/25 02:30 91 18 95/69 94 L 01/12/25 01:16 81 20 125/84 95 01/11/25 23:46 74 01/11/25 22:32 101 H 70 01/11/25 22:14 105 H 01/11/25 22:13 105 H 01/11/25 21:59 102 H 01/11/25 21:19 99.6 F 99 20 109/66 94 L 01/11/25 21:15 107 H 20 109/66 90 L Intake and Output 01/11/25 01/12/25 01/12/25 22:59 06:59 14:59 Other: Weight 65.317 kg Results 01/12/25 05:40 01/12/25 05:40 Cardiac Enzymes 01/11/25 01/11/25 01/12/25 Range/Units 21:10 21:10 05:40 AST 27 (14-36) U/L Troponin I 0.040 H* 0.035 H* (0.000-0.034) ng/mL Coagulation 01/11/25 Range/Units 21:10 PT 10.9 (10.0-12.5) sec APTT 24.8 (22.0-30.0) sec CBC 01/11/25 01/12/25 Range/Units 21:10 05:40 WBC 27.72 H 18.70 H (4.50-10.00) 10*3/uL RBC 4.26 4.02 L (4.10-5.20) 10*6/uL Hgb 11.3 L 10.4 L (12.0-15.0) g/dL Hct 36.2 L 33.6 L (37.2-46.3) % Plt Count 343 290 (140-440) 10*3/uL Comprehensive Metabolic Panel 01/11/25 01/12/25 Range/Units 21:10 05:40 Sodium 137 137 (137-145) mmol/L Potassium 3.0 L 3.4 L (3.5-5.1) mmol/L Chloride 99 100 (98-107) mmol/L Carbon Dioxide 26 27 (22-30) mmol/L BUN 19 H 17 (7-17) mg/dL Creatinine 0.73 0.62 (0.52-1.04) mg/dL Glucose 130 H 189 H (74-99) mg/dL Calcium 9.5 9.0 (8.4-10.2) mg/dL AST 27 (14-36) U/L ALT 24 (4-34) U/L Alkaline Phosphatase 77 (38-126) U/L Total Protein 6.2 L (6.3-8.2) g/dL Albumin 3.8 (3.5-5.0) g/dL Current Medications Generic Name Dose Route Start Last Admin Trade Name Freq PRN Reason Stop Dose Admin Albuterol Sulfate 2.5 mg 01/12/25 03:11 Albuterol Nebulized 2.5 Mg/3 Ml INHALATION RT-QID PRN Shortness Of Breath Or Wheezing Albuterol/Ipratropium 3 ml 01/12/25 08:00 Ipratropium-Albuterol 3 Ml Neb INHALATION RT-QID ILA Albuterol/Ipratropium 3 ml 01/12/25 03:08 Ipratropium-Albuterol 3 Ml Neb INHALATION RT-QID PRN Shortness Of Breath Or Wheezing Budesonide/Formoterol Fumarate 2 puff 01/12/25 08:00 Symbicort 160-4.5 Mcg Inhaler INHALATION RT-BID ILA Enoxaparin Sodium 40 mg 01/12/25 09:00 Enoxaparin 40 Mg/0.4 Ml Syringe SQ DAILY [facility] Furosemide 40 mg 01/12/25 09:00 Furosemide 10 Mg/Ml 4 Ml Vial IV Q12HR [facility] Azithromycin 500 mg/ Sodium 250 mls @ 250 mls/hr 01/12/25 09:00 Chloride IVPB 01/13/25 09:59 DAILY [facility] Protocol Ceftriaxone Sodium 2 gm/ 50 mls @ 100 mls/hr 01/12/25 10:00 Sodium Chloride IVPB Q24H [facility] Protocol Methylprednisolone Sodium Succinate 40 mg 01/12/25 08:00 Methylprednisolone Sod Succi 40 Mg/Ml 1 Ml Vial IV Q8HR [facility] Potassium Chloride 40 meq 01/12/25 09:00 Potassium Chloride Er 20 Meq Tab.Er PO BID [facility] Intake and Output 01/11/25 01/12/25 01/12/25 22:59 06:59 14:59 Other: Weight 65.317 kg 01/12/25 05:40 01/12/25 05:40
[2025-01-12] MEDS: DICYCLOMINE 10 MG CAP PO SCH (15:35)
[2025-01-12] MEDS: SILDENAFIL 20 MG TAB PO SCH (15:58)
[2025-01-12] MEDS: guaiFENesin 600 MG TABLET.ER PO SCH (20:33)
[2025-01-12] MEDS: ATORVASTATIN 40 MG TAB PO SCH (20:33)
[2025-01-13] MEDS ORDERED: ZINC OXIDE PASTE (Z-GUARD) 1 APPLIC TOPICAL PRN (06:41)
[2025-01-13 07:39] LABS: Basophils # (A) 0.02 10*3/uL (0.00-0.10); Basophils % (A) 0.1 %; HGB 10.8 g/dL (12.0-15.0); Lymphocytes # (A) 0.53 10*3/uL (0.90-5.00); Lymphocytes % (A) 2.7 %; MCH 26.2 pg (27.0-32.0); MCV 87.4 fL (80.0-97.0); Mean Platelet Volume 10.4 fL (9.5-12.2); Monocytes # (A) 0.75 10*3/uL (0.20-1.00); Monocytes % (A) 3.8 %; Neutrophils % (A) 92.3 %; Platelet Count 329 10*3/uL (140-440); RBC 4.12 10*6/uL (4.10-5.20); RDW 18.4 % (11.5-14.5); WBC 19.71 10*3/uL (4.50-10.00)
[2025-01-13 07:51] LABS: African American GFR (CKD) >90 (>60 ml/min/1.73 sqM); Anion Gap 15 mmol/L; Blood Urea Nitrogen 21 mg/dL (7-17); Calcium 9.4 mg/dL (8.4-10.2); Carbon Dioxide 23 mmol/L (22-30); Chloride 103 mmol/L (98-107); Glucose 146 mg/dL (74-99); Magnesium 2.2 mg/dL (1.6-2.3); Non-African American GFR(CKD) 87 (>60 ml/min/1.73 sqM); Potassium 4.4 mmol/L (3.5-5.1); Sodium 141 mmol/L (137-145)
[2025-01-13] MEDS: TIOTROPIUM 2.5 MCG INHALER INHALATION SCH (08:02)
[2025-01-13] MEDS: METOPROLOL SUCCINATE (ER) 25 MG TAB.ER.24H PO SCH (09:03)
[2025-01-13] MEDS: SERTRALINE 50 MG TAB PO SCH (09:03)
[2025-01-13] MEDS: ASPIRIN 81 MG PO SCH (09:03)
[2025-01-13] MEDS: PANTOPRAZOLE 40 MG TABLET PO SCH (09:03)
[2025-01-13] MEDS: LORATADINE 10 MG TAB PO SCH (09:03)
[2025-01-13] MEDS: POTASSIUM CHLORIDE ER 20 MEQ TAB.ER PO SCH (09:04)
--- NOTE | 2025-01-13 11:56 | P.PN ---
Subjective Progress Note Date: 01/13/25 Hospital Course: Patient is a 74-year-old female with a past medical history of advanced COPD w ith chronic hypoxic respiratory failure home oxygen dependent on 4 L, severe pulmonary hypertension, infrarenal abdominal aortic aneurysm reported at approximately 6 cm and awaiting repair, hypertension, hyperlipidemia, and former smoker with > 40 pack per year history. Patient reports that she follows with Dr. 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 presented to ED with shortness of breath. She report her shortness of breath started yesteday morning. She used her inhalers but that did not help with her symptoms a lot. Patient was recently admitted to our facility for COPD exacerbation and was discharged on 12/17/24. Associated with that she experiences lower extremity swelling since 4 days. Additionally, she has had an episode of epistaxis, and she reports improvement in her symptoms now. Denies being on blood thinners. Denies fever, chest pain, palpitations, abdominal pain, nausea, vomiting, hematuria, dysuria, hematochezia, melena, headache, slurred speech, numbness, tingling, dizziness, lightheadedness, blurred vision, double vision. ED documentation reviewed. In the ED patient was treated with nebulized albuterol, fluticasone, furosemide, DuoNeb, Tylenol, oxymetazoline nasal spray, potassium bicarb 40 mg, potassium chloride 20 mill equivalents, Rocephin Zithromax, Solu-Medrol. Vitals on admission T 99.6 F, [place] 107 bpm, RR 20, BP 109/66, SpO2 90% on 15 L nonrebreather.EKG :sinus tachycardia, rate 106 bpm, incomplete RBBB, QTc 380 ms.Chest x-ray shows clinical correlation recommended for congestive heart failure, findings are worsening from comparison.Venous Doppler study shows no DVT bilaterally Labs on admission show WBC 27.72, hemoglobin 11.3, MCV 85, platelet 343, INR 1.0, sodium 137, potassium 3.0, BUN 19, creatinine 0.73, glucose 130, lactic acid 1.3, NT proBNP 37214, troponin I 0.04 Admitted for further management of acute on chronic hypoxic respiratory failure, new onset CHF exacerbation and possible community-acquired pneumonia, troponin elevation, cardiology and pulmonology on consult, started on IV Lasix, IV antibiotics. Of note, she was discharged from our institution on 12/11 after being treated for COPD exacerbation, was noted to have orthostatic hypotension, epistaxis, sent home on fludrocortisone for possible underlying adrenal insufficiency in setting of chronic steroid use, she was discharged to subacute rehab at that time. Her Aldactone and Bumex discontinued 01/13: Seen examined at bedside, no acute events overnight, lower extremity swelling has improved significantly, shortness of breath persistent but getting better, patient was very emotional due to her ongoing health issues, social work was at bedside, discussed current management, possible plan for rehab placement. Oxygen requirement mildly improved, Continued on Airvo 45 L 70%.-->45L, 65%. Leukocytosis 19.7, slightly up likely in the settings of steroid use, sodium and potassium WNL, creatinine remains normal. Patient to continue current man agement with IV Lasix 40 twice daily, ceftriaxone, completed azithromycin Pertinent positives and negatives as discussed above, a complete review of systems was performed and all other systems are negative. Vitals Signs Reviewed. General: [nontoxic], [no distress], [appears at stated age] Derm: [warm], [dry] Head: [atraumatic], [normocephalic], [symmetric] Eyes: [EOMI], [no lid lag], [anicteric sclera] Mouth: [no lip lesion], [mucus membranes moist] Cardiovascular: [S1S2 reg], [murmur] Lungs: [Diminished bilateral breath sounds, no wheezing, on high flow nasal cannula Abdominal: [soft], [ nontender to palpation], [no guarding], [no appreciable organomegaly] Ext: [no gross muscle atrophy], [2+ bilateral pitting edema up to the knees], [no contractures] Neuro: [ CN II-XI grossly intact], [no focal neuro deficits] Psych: [Alert], [oriented], [appropriate affect] Assessment and Plan: Acute on chronic respiratory failure with hypoxia Possible community-acquired pneumonia Advanced COPD without acute exacerbation severe pulmonary hypertension -Consult to Pulmonology and cardiology, appreciate recommendations -Continue strict I's and O's, daily weights, Lasix 40 IV twice daily, monitor CBC and BMP daily - No need to repeat TTE per cardiology -Continue ceftriaxone 2 g daily SOT 01/11, completed azithromycin -Oxygenation to be administered and titrated as needed to maintain SPO2 equal to or greater than 92% -Telemetry monitoring. -Monitor pulse-oximetry -Duonebs scheduled 4 times daily and as needed for SOB and/or wheezing -Incentive Spirometry -Steroids: Solu-Medrol 40 IV every 8 hours -Continue Spiriva 2 puffs daily, Ranexa 20 mg 3 times daily and Symbicort 160- 4.5 mcg inhaler 2 puffs twice daily. Elevated troponin, likely secondary to demand ischemia resulting from hypoxia -Cardiology consulted, appreciate recommendations -Telemetry monitoring -Trend troponins Hypokalemia, resolved: While on IV diuretics, decrease oral potassium to 40 mEq daily Possible adrenal insufficiency due to chronic steroid use, will hold fludrocortisone 0.1 daily while patient is on high-dose of Solu-Medrol Infrarenal abdominal aortic aneurysm -Patient denies having any complaints including abdominal pain, back pain, experiencing any numbness/tingling/weakness in her extremities. Continue to follow-up with cardiology Hypertension -Monitor vital signs and continue daily medication regimen with Toprol-XL 12.5 daily Hyperlipidemia -Continue daily medication regimen with atorvastatin 40 mg daily. Anxiety and depression -Continue Zoloft 50 mg daily. CODE STATUS: Full code DVT prophylaxis: Lovenox Anticipated discharge date: Pending clinical course Anticipated discharge place: Pending clinical course Objective - Vital Signs Vital signs: Vital Signs Temp 98.2 F 01/13/25 07:56 Pulse 92 01/13/25 11:38 Resp 20 01/13/25 07:56 BP 113/71 01/13/25 07:56 Pulse Ox 95 01/13/25 11:24 FiO2 65 01/13/25 11:24 Intake & Output 01/12/25 01/13/25 01/13/25 18:59 06:59 18:59 Intake Total 540 240 Balance 540 240 Weight 63.5 kg Intake: Oral 540 240 Other: Voiding Method Bedside Commode # Voids 1 - Labs CBC & Chem 7: 01/13/25 06:51 01/13/25 06:51 Labs: Abnormal Lab Results - Last 24 Hours (Table) 01/13/25 01/13/25 Range/Units 06:51 06:51 WBC 19.71 H (4.50-10.00) 10*3/uL Hgb 10.8 L (12.0-15.0) g/dL Hct 36.0 L (37.2-46.3) % MCH 26.2 L (27.0-32.0) pg MCHC 30.0 L (32.0-37.0) g/dL Immature Gran # 0.21 H (0.00-0.04) 10*3/uL Neutrophils # 18.20 H (1.80-7.70) 10*3/uL Lymphocytes # 0.53 L (0.90-5.00) 10*3/uL Eosinophils # 0.00 L (0.04-0.35) 10*3/uL BUN 21 H (7-17) mg/dL Glucose 146 H (74-99) mg/dL Microbiology - Last 24 Hours (Table) 01/11/25 23:11 Blood Culture - Preliminary Blood
--- NOTE | 2025-01-13 13:17 | P.PN ---
Subjective Progress Note Date: 01/13/25 Reason for Consult (text): New onset CHF History of present illness: This is a 74-year-old female patient of Dr. Fontana with past medical history of abdominal aortic aneurysm of 6 cm waiting for repair, hypertension, hyperlipidemia, mild nonobstructing coronary artery disease, severe pulmonary hypertension, carotid artery stenosis, COPD, chronic hypoxic respiratory failure on home O2 at 4 L nasal cannula. We have been asked to evaluate the patient for new onset of heart failure. Patient states that she came into the hospital due to trouble breathing that has been going on for 4 years. She also complains of lower extremity edema. She states that yesterday her pulse ox was reading 60s and 70s so she decided to come in to the hospital for further evaluation. Blood pressure 107/72, heart rate 98, pulse ox 98% on high flow cannula FiO2 of 65. Patient has been started on IV antibiotics, nebulizer treatments and IV steroids. -EKG: Sinus rhythm 106 bpm with PACs -Chest x-ray: CHF. -Venous duplex bilateral lower extremities: No DVT. -CTA chest: Left upper lobe pneumonia. No pulmonary embolus. Severe changes of COPD. Cardiomegaly. Pulmonary artery hypertension. -Laboratory studies: WBC 18.7, hemoglobin 10.4. Potassium 3.4, troponin 0.04 and 0.035. proBNP 18,500. Procalcitonin less than 0.2. Cepheid viral panel not detected. -Home cardiac medications: Aspirin 81 mg daily, atorvastatin 40 mg at bedtime, Lasix 40 mg daily, Toprol-XL 12.5 mg daily, sildenafil 20 mg 3 times daily. -Cardiac catheterization performed 09/24/2024 revealed CAD with 30 to 40% mid to distal LAD, 40% OM1, 50% distal RCA, small aneurysmal portion of the mid RCA. Normal left-sided filling pressures and elevated right sided filling pressures. Precapillary pulmonary hypertension. - Echocardiogram performed on 08/06/2024 revealed EF of 55%, severe right ventricular dilation with RV: LV ratio of 1.95. Mild to moderate right ventricular hypokinesis. Pulmonary hypertension with RVSP 67. This may be underestimated secondary to RV failure. Mild mitral regurgitation. Moderate tricuspid regurgitation. 01/13/2025 Patient seen and examined on the cardiac stepdown unit. Patient is currently on air Vo. She states she is feeling better today her breathing is better but she states she is very emotional today because of the multiple medical problems that she is facing. She is concerned that she is not able to get her AAA repair done as this has already been postponed due to acute conditions. Patient has been maintained on IV Lasix 40 mg every 12 hours. Blood pressure 101/68, heart rate 103, pulse ox 93% on high flow nasal cannula. Repeat blood work reveals WBC 19.7, hemoglobin 10.8, BUN 21 creatinine 0.7. Physical examination: Gen: This is a 74-year-old female in no acute distress VS: reviewed HEENT: Head is atraumatic, normocephalic. Pupils equal, round. Sclerae is anicteric. NECK: Supple. No JVD. LUNGS: Clear to auscultation. No wheezes or rhonchi. No intercostal retractions. HEART: Regular rate and rhythm. No murmur. ABDOMEN: Soft No tenderness. EXTREMITIES: Moderate bilateral lower extremity pitting edema. No calf tenderness. NEUROLOGICAL: Patient is awake, alert and oriented x3. Assessment: Elevated troponins secondary to acute hypoxic respiratory failure Acute hypoxic respiratory failure Acute COPD exacerbation Left upper lobe pneumonia HTN HLD Mild nonobstructive CAD Severe Pulmonary HTN Carotid artery stenosis COPD Chronic hypoxic respiratory failure on home O2 at 4L Chronic cor pulmonale AAA Plan: Continue patient's home cardiac medications Continue IV Lasix 40 mg every 12h for another 24 hours Monitor I&O Weights renal function and electrolytes No need to repeat echocardiogram as this was done in July Further recommendations to follow based upon clinical course Nurse practitioner note has been reviewed, I agree with documented findings and plan of care. Patient was seen and examined. Objective - Vital Signs Vital signs: Vital Signs Temp 98.2 F 01/13/25 07:56 Pulse 90 01/13/25 08:15 Resp 20 01/13/25 07:56 BP 113/71 01/13/25 07:56 Pulse Ox 93 L 01/13/25 08:02 FiO2 65 01/13/25 08:02 Intake & Output 01/12/25 01/13/25 01/13/25 18:59 06:59 18:59 Intake Total 540 240 Balance 540 240 Weight 63.5 kg Intake: Oral 540 240 Other: Voiding Method Bedside Commode # Voids 1 - Labs CBC & Chem 7: 01/13/25 06:51 01/13/25 06:51 Labs: Abnormal Lab Results - Last 24 Hours (Table) 01/13/25 01/13/25 Range/Units 06:51 06:51 WBC 19.71 H (4.50-10.00) 10*3/uL Hgb 10.8 L (12.0-15.0) g/dL Hct 36.0 L (37.2-46.3) % MCH 26.2 L (27.0-32.0) pg MCHC 30.0 L (32.0-37.0) g/dL Immature Gran # 0.21 H (0.00-0.04) 10*3/uL Neutrophils # 18.20 H (1.80-7.70) 10*3/uL Lymphocytes # 0.53 L (0.90-5.00) 10*3/uL Eosinophils # 0.00 L (0.04-0.35) 10*3/uL BUN 21 H (7-17) mg/dL Glucose 146 H (74-99) mg/dL Microbiology - Last 24 Hours (Table) 01/11/25 23:11 Blood Culture - Preliminary Blood
--- NOTE | 2025-01-13 13:42 | P.PN ---
Subjective Progress Note Date: 01/13/25 Patient is a 74-year-old female with past medical history significant for COPD, interstitial fibrosis, pulmonary hypertension suspected group 3, cor pulmonale, chronic hypoxemic respiratory failure. Echocardiogram from July, estimating normal LV function, mild mitral regurgitation, RVSP of 67 with RV dysfunction. Did have a left and right heart catheterization done August, with PA pressure of 63/39 mmHg, PCWP 15. PAH felt to be related to patient's chronic lung disease. Also, patient was found to have mild nonobstructive coronary disease. Of note, patient recently hospitalized Nov, 2024, she had a near syncopal event. Patient brought into the emergency department late last night by EMS, in a state of respiratory distress, placed on high flow cannula/Airvo. She is an ECF resident from [facility]. Chief complaint of acute on chronic shortness of breath starting yesterday morning. Intermittent improvement with breathing treatments. Workup in the ED including x-ray which was remarkable for cardiomegaly, pulmonary vascular congestion, and diffuse increased lung markings bilaterally, greater on the left. Labs including a CBC with a WBC count of 27.7, hemoglobin 11.3, platelets 343. CMP with a sodium 137, potassium 3, chloride 99, serum bicarb 26, BUN 19, creatinine 0.73, glucose 130. Lactic 1.3. LFTs unremarkable. EKG: Sinus tachycardia, rate 106 bpm, frequent PACs, incomplete RBBB pattern. Troponin 0.04. NT proBNP significantly elevated at 18,500. Did receive a 80 mg dose of Lasix earlier in the ED. Patient currently being evaluated in the ED. She is resting comfortably on Airvo 50 L and 75%. She is awake and alert without signs of CO2 narcosis. ABG done previously with a PaO2 of 68, pCO2 35, pH of 7.48. Tachypneic. Speaking in complete sentences. Patient states that her increased difficulty in breathing started approximately 24 hours ago. She has had increased swelling in her lower extremities, starting approximately 4 days ago. Denies missing any doses of her Lasix. Denies chest pain, heart palpitations, lightheadedness or syncopal events. She denies any URI-like symptoms. She has a chronic cough, which is mostly dry. Denies any purulent sputum production, hemoptysis, or chest pain. Denies any fevers or chills. Previously started on azithromycin and Rocephin in the ED, which are essentially empiric. Current vital signs: Temperature 99.6 F, heart rate 91 bpm, blood pressure 95/69 mmHg, tachypneic, SpO2 recorded as 94% on above-mentioned Airvo settings. The patient is seen today January 13, 2025 in follow-up on the selective care unit. She is currently sitting up in bed. Awake and alert in no acute distress. She is still requiring Airvo high flow oxygen at 45 L and 65% FiO2. She has been afebrile. Hemodynamically stable. Blood culture reveals no growth thus far. White count 19.7. Hemoglobin 10.8. Platelets 329. Sodium 141. Potassium 4.4. Bicarb 23. BUN 21. Creatinine 0.70. Glucose 146. Procalcitonin was negative at 0.20. She remains on DuoNeb ventilations, Symbicort, Solu-Medrol, Spiriva. Continued on IV diuretics. Lovenox for DVT prophylaxis. Remains on ceftriaxone. Objective - Vital Signs Vital signs: Vital Signs Temp 98.4 F 01/13/25 12:15 Pulse 103 H 01/13/25 12:15 Resp 18 01/13/25 12:15 BP 101/68 01/13/25 12:15 Pulse Ox 93 L 01/13/25 12:15 FiO2 65 01/13/25 11:24 Intake & Output 01/12/25 01/13/25 01/13/25 18:59 06:59 18:59 Intake Total 540 240 Balance 540 240 Weight 63.5 kg Intake: Oral 540 240 Other: Voiding Method Bedside Commode # Voids 1 - Exam GENERAL EXAM: Alert, 74-year-old female, on Airvo high flow oxygen, fairly comfortable in no apparent distress. HEAD: Normocephalic. EYES: Normal reaction of pupils, equal size. NOSE: Clear with pink turbinates. THROAT: No erythema or exudates. NECK: No masses, no JVD. CHEST: No chest wall deformity. LUNGS: Equal air entry with few scattered rhonchi. CVS: S1 and S2 normal with no audible murmur, regular rhythm. ABDOMEN: No hepatosplenomegaly, normal bowel sounds, no guarding or rigidity. SPINE: No scoliosis or deformity SKIN: No rashes CENTRAL NERVOUS SYSTEM: No focal deficits, tone is normal in all 4 extremities. EXTREMITIES: There is no peripheral edema. No clubbing, no cyanosis. Peripheral pulses are intact. - Labs CBC & Chem 7: 01/13/25 06:51 01/13/25 06:51 Labs: Abnormal Lab Results - Last 24 Hours (Table) 01/13/25 01/13/25 Range/Units 06:51 06:51 WBC 19.71 H (4.50-10.00) 10*3/uL Hgb 10.8 L (12.0-15.0) g/dL Hct 36.0 L (37.2-46.3) % MCH 26.2 L (27.0-32.0) pg MCHC 30.0 L (32.0-37.0) g/dL Immature Gran # 0.21 H (0.00-0.04) 10*3/uL Neutrophils # 18.20 H (1.80-7.70) 10*3/uL Lymphocytes # 0.53 L (0.90-5.00) 10*3/uL Eosinophils # 0.00 L (0.04-0.35) 10*3/uL BUN 21 H (7-17) mg/dL Glucose 146 H (74-99) mg/dL Microbiology - Last 24 Hours (Table) 01/11/25 23:11 Blood Culture - Preliminary Blood Assessment and Plan Assessment: Acute COPD exacerbation secondary to an acute left lung pneumonia Pulmonary hypertension with RV dysfunction and cor pulmonale Acute on chronic hypoxemic respiratory failure, currently requiring Airvo 45 L and 65%, chest x-ray showing cardiomegaly, pulmonary vascular congestion, i ncreased interstitial markings bilaterally, greater on the left. NT proBNP 18,500. Bilateral lower extremity edema Acute leukocytosis Hypokalemia, replaced Elevated troponins, likely secondary to supply/demand mismatch COPD/emphysema Pulmonary hypertension, suspect group 3, echocardiogram from 08/07/2024 showed a preserved LV function, nevertheless, the patient had severe pulmonary hypertens ion. RV was severely dilated and estimated PA pressure was 67. She had also moderate TR. Did have a follow-up confirmatory right-sided heart catheterization with a mean pulmonary artery pressure of 47 mmHg and pulmonary capillary wedge pressure of 15 suggestive of pre-capillary pulmonary hypertension. Chronic hypoxemic respiratory failure, typically wears 4 to 5 L/min nasal cannula while at home History of nonobstructive coronary artery disease Infrarenal abdominal aortic aneurysm, 4.7 cm follows with vascular surgery outpatient Systemic hypertension History of hyperlipidemia Peripheral vascular disease and carotid artery stenosis Former tobacco smoker Anxiety/depression Plan: The patient was seen and evaluated Labs and medications reviewed Continue DuoNeb inhalations Continue Symbicort and Spiriva Lovenox for DVT prophylaxis Continued on IV diuretics Continued on ceftriaxone Titrate down the FiO2 as tolerated Increase her activity as tolerated We will continue to follow I have personally seen and examined the patient, performed the documentation and the assessment and plan as written. Number of minutes spent on the visit: 10 Dictation was produced using [employer] dictation software. Please excuse any grammatical, word or spelling errors.
[2025-01-13 15:02] VITALS: BMI 23.3
[2025-01-14 07:33] LABS: Basophils # (A) 0.02 10*3/uL (0.00-0.10); Basophils % (A) 0.1 %; HCT 33.3 % (37.2-46.3); HGB 10.3 g/dL (12.0-15.0); Lymphocytes # (A) 0.61 10*3/uL (0.90-5.00); Lymphocytes % (A) 3.6 %; MCH 26.8 pg (27.0-32.0); MCHC 30.9 g/dL (32.0-37.0); MCV 86.7 fL (80.0-97.0); Mean Platelet Volume 10.5 fL (9.5-12.2); Monocytes # (A) 0.73 10*3/uL (0.20-1.00); Monocytes % (A) 4.3 %; Neutrophils # (A) 15.56 10*3/uL (1.80-7.70); Neutrophils % (A) 90.6 %; Platelet Count 293 10*3/uL (140-440); RBC 3.84 10*6/uL (4.10-5.20); RDW 18.2 % (11.5-14.5); WBC 17.16 10*3/uL (4.50-10.00)
[2025-01-14 07:48] LABS: African American GFR (CKD) 80 (>60 ml/min/1.73 sqM); Anion Gap 6 mmol/L; Blood Urea Nitrogen 27 mg/dL (7-17); Calcium 9.7 mg/dL (8.4-10.2); Carbon Dioxide 27 mmol/L (22-30); Chloride 104 mmol/L (98-107); Glucose 167 mg/dL (74-99); Non-African American GFR(CKD) 69 (>60 ml/min/1.73 sqM); Sodium 137 mmol/L (137-145)
--- NOTE | 2025-01-14 11:14 | P.PN ---
Subjective Progress Note Date: 01/14/25 Hospital Course: Patient is a 74-year-old female with a past medical history of advanced COPD w ith chronic hypoxic respiratory failure home oxygen dependent on 4 L, severe pulmonary hypertension, infrarenal abdominal aortic aneurysm reported at approximately 6 cm and awaiting repair, hypertension, hyperlipidemia, and former smoker with > 40 pack per year history. 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 presented to ED with shortness of breath. She report her shortness of breath started yesteday morning. She used her inhalers but that did not help with her symptoms a lot. Patient was recently admitted to our facility for COPD exacerbation and was discharged on 12/17/24. Associated with that she experiences lower extremity swelling since 4 days. Additionally, she has had an episode of epistaxis, and she reports improvement in her symptoms now. Denies being on blood thinners. Denies fever, chest pain, palpitations, abdominal pain, nausea, vomiting, hematuria, dysuria, hematochezia, melena, headache, slurred speech, numbness, tingling, dizziness, lightheadedness, blurred vision, double vision. ED documentation reviewed. In the ED patient was treated with nebulized albuterol, fluticasone, furosemide, DuoNeb, Tylenol, oxymetazoline nasal spray, potassium bicarb 40 mg, potassium chloride 20 mill equivalents, Rocephin Zithromax, Solu-Medrol. Vitals on admission T 99.6 F, VT 107 bpm, RR 20, BP 109/66, SpO2 90% on 15 L nonrebreather.EKG :sinus tachycardia, rate 106 bpm, incomplete RBBB, QTc 380 ms.Chest x-ray shows clinical correlation recommended for congestive heart failure, findings are worsening from comparison.Venous Doppler study shows no DVT bilaterally Labs on admission show WBC 27.72, hemoglobin 11.3, MCV 85, platelet 343, INR 1.0, sodium 137, potassium 3.0, BUN 19, creatinine 0.73, glucose 130, lactic acid 1.3, NT proBNP 43078, troponin I 0.04 Admitted for further management of acute on chronic hypoxic respiratory failure, new onset CHF exacerbation and possible community-acquired pneumonia, troponin elevation, cardiology and pulmonology on consult, started on IV Lasix, IV antibiotics. Oxygen requirement improved, Continued on Airvo 45 L 70%.-->45L, 65%.--> 40 L 60%, planning to transition to high flow nasal cannula 01/14: Seen and examined at bedside, no acute events overnight, breathing status is improving, lower extremity swelling resolved, leukocytosis improving 17.6 today, hemoglobin stable 10.3, BMP with normal creatinine, sodium, potassium, bicarb. Discussed with RN, patient will be transitioned to oral diuretics per cardiology, potassium level is high normal, will discontinue daily KCl and replace on as-needed basis. Patient received education regarding heart failure diet. Pertinent positives and negatives as discussed above, a complete review of systems was performed and all other systems are negative. Vitals Signs Reviewed. General: [nontoxic], [no distress], [appears at stated age] Derm: [warm], [dry] Head: [atraumatic], [normocephalic], [symmetric] Eyes: [EOMI], [no lid lag], [anicteric sclera] Mouth: [no lip lesion], [mucus membranes moist] Cardiovascular: [S1S2 reg], [murmur] Lungs: [Diminished bilateral breath sounds, no wheezing, on airvo Abdominal: [soft], [ nontender to palpation], [no guarding], [no appreciable organomegaly] Ext: [no gross muscle atrophy], [resolved edema], [no contractures] Neuro: [ CN II-XI grossly intact], [no focal neuro deficits] Psych: [Alert], [oriented], [appropriate affect] Assessment and Plan: Acute on chronic respiratory failure with hypoxia Possible community-acquired pneumonia Advanced COPD without acute exacerbation severe pulmonary hypertension -Consult to Pulmonology and cardiology, appreciate recommendations -Continue strict I's and O's, daily weights, Lasix 40 IV twice daily, plan to transition to oral per cardiology monitor CBC and BMP daily - No need to repeat TTE per cardiology -Continue ceftriaxone 2 g daily SOT 01/11, completed azithromycin -Oxygenation to be administered and titrated as needed to maintain SPO2 equal to or greater than 92% -Telemetry monitoring. -Monitor pulse-oximetry -Duonebs scheduled 4 times daily and as needed for SOB and/or wheezing -Incentive Spirometry -Steroids: Solu-Medrol 40 IV every 8 hours -Continue Spiriva 2 puffs daily, Ranexa 20 mg 3 times daily and Symbicort 160- 4.5 mcg inhaler 2 puffs twice daily. Elevated troponin, likely secondary to demand ischemia resulting from hypoxia -Cardiology consulted, appreciate recommendations -Telemetry monitoring -Trend troponins Hypokalemia, resolved: While on IV diuretics, discontinue oral potassium to 40 mEq daily Possible adrenal insufficiency due to chronic steroid use, will hold fludrocortisone 0.1 daily while patient is on high-dose of Solu-Medrol Infrarenal abdominal aortic aneurysm -Patient denies having any complaints including abdominal pain, back pain, experiencing any numbness/tingling/weakness in her extremities. Continue to follow-up with cardiology Hypertension -Monitor vital signs and continue daily medication regimen with Toprol-XL 12.5 daily Hyperlipidemia -Continue daily medication regimen with atorvastatin 40 mg daily. Anxiety and depression -Continue Zoloft 50 mg daily. CODE STATUS: Full code DVT prophylaxis: Lovenox Anticipated discharge date: Pending clinical course Anticipated discharge place: Pending clinical course Objective - Vital Signs Vital signs: Vital Signs Temp 98.8 F 01/14/25 09:20 Pulse 99 01/14/25 09:20 Resp 18 01/14/25 09:20 BP 115/75 01/14/25 09:20 Pulse Ox 95 01/14/25 09:20 FiO2 59 01/14/25 09:20 Intake & Output 01/13/25 01/14/25 01/14/25 18:59 06:59 18:59 Intake Total 1140 30 100 Balance 1140 30 100 Weight 63.5 kg 62.6 kg Intake: IV 300 30 Azithromycin 500 mg In 250 Sodium Chloride 0.9% 250 ml @ 250 mls/hr IVPB DAILY [facility] Rx#:[id number] Invasive Line 1 10 Invasive Line 2 20 cefTRIAXone 2 gm In 50 Sodium Chloride 0.9% 50 ml @ 100 mls/hr IVPB Q24H [facility] Rx#:[id number] Oral 840 100 Other: Voiding Method Bedside Commode # Voids 1 1 1 # Bowel Movements 1 1 - Labs CBC & Chem 7: 01/14/25 07:15 01/14/25 07:15 Labs: Abnormal Lab Results - Last 24 Hours (Table) 01/14/25 01/14/25 Range/Units 07:15 07:15 WBC 17.16 H (4.50-10.00) 10*3/uL RBC 3.84 L (4.10-5.20) 10*6/uL Hgb 10.3 L (12.0-15.0) g/dL Hct 33.3 L (37.2-46.3) % MCH 26.8 L (27.0-32.0) pg MCHC 30.9 L (32.0-37.0) g/dL Immature Gran # 0.24 H (0.00-0.04) 10*3/uL Neutrophils # 15.56 H (1.80-7.70) 10*3/uL Lymphocytes # 0.61 L (0.90-5.00) 10*3/uL Eosinophils # 0.00 L (0.04-0.35) 10*3/uL BUN 27 H (7-17) mg/dL Glucose 167 H (74-99) mg/dL Microbiology - Last 24 Hours (Table) 01/11/25 23:11 Blood Culture - Preliminary Blood
--- NOTE | 2025-01-14 11:16 | P.PN ---
Subjective Progress Note Date: 01/14/25 Reason for Consult (text): New onset CHF History of present illness: This is a 74-year-old female patient of Dr. Fontana with past medical history of abdominal aortic aneurysm of 6 cm waiting for repair, hypertension, hyperlipidemia, mild nonobstructing coronary artery disease, severe pulmonary hypertension, carotid artery stenosis, COPD, chronic hypoxic respiratory failure on home O2 at 4 L nasal cannula. We have been asked to evaluate the patient for new onset of heart failure. Patient states that she came into the hospital due to trouble breathing that has been going on for 4 years. She also complains of lower extremity edema. She states that yesterday her pulse ox was reading 60s and 70s so she decided to come in to the hospital for further evaluation. Blood pressure 107/72, heart rate 98, pulse ox 98% on high flow cannula FiO2 of 65. Patient has been started on IV antibiotics, nebulizer treatments and IV steroids. -EKG: Sinus rhythm 106 bpm with PACs -Chest x-ray: CHF. -Venous duplex bilateral lower extremities: No DVT. -CTA chest: Left upper lobe pneumonia. No pulmonary embolus. Severe changes of COPD. Cardiomegaly. Pulmonary artery hypertension. -Laboratory studies: WBC 18.7, hemoglobin 10.4. Potassium 3.4, troponin 0.04 and 0.035. proBNP 18,500. Procalcitonin less than 0.2. Cepheid viral panel not detected. -Home cardiac medications: Aspirin 81 mg daily, atorvastatin 40 mg at bedtime, Lasix 40 mg daily, Toprol-XL 12.5 mg daily, sildenafil 20 mg 3 times daily. -Cardiac catheterization performed 09/24/2024 revealed CAD with 30 to 40% mid to distal LAD, 40% OM1, 50% distal RCA, small aneurysmal portion of the mid RCA. Normal left-sided filling pressures and elevated right sided filling pressures. Precapillary pulmonary hypertension. - Echocardiogram performed on 08/06/2024 revealed EF of 55%, severe right ventricular dilation with RV: LV ratio of 1.95. Mild to moderate right ventricular hypokinesis. Pulmonary hypertension with RVSP 67. This may be underestimated secondary to RV failure. Mild mitral regurgitation. Moderate tricuspid regurgitation. 01/13/2025 Patient seen and examined on the cardiac stepdown unit. Patient is currently on air Vo. She states she is feeling better today her breathing is better but she states she is very emotional today because of the multiple medical problems that she is facing. She is concerned that she is not able to get her AAA repair done as this has already been postponed due to acute conditions. Patient has been maintained on IV Lasix 40 mg every 12 hours. Blood pressure 101/68, heart rate 103, pulse ox 93% on high flow nasal cannula. Repeat blood work reveals WBC 19.7, hemoglobin 10.8, BUN 21 creatinine 0.7. Physical examination: Gen: This is a 74-year-old female in no acute distress VS: reviewed HEENT: Head is atraumatic, normocephalic. Pupils equal, round. Sclerae is anicteric. NECK: Supple. No JVD. LUNGS: Clear to auscultation. No wheezes or rhonchi. No intercostal retractions. HEART: Regular rate and rhythm. No murmur. ABDOMEN: Soft No tenderness. EXTREMITIES: Moderate bilateral lower extremity pitting edema. No calf tenderness. NEUROLOGICAL: Patient is awake, alert and oriented x3. Assessment: Elevated troponins secondary to acute hypoxic respiratory failure Acute hypoxic respiratory failure Acute COPD exacerbation Left upper lobe pneumonia HTN HLD Mild nonobstructive CAD Severe Pulmonary HTN Carotid artery stenosis COPD Chronic hypoxic respiratory failure on home O2 at 4L Chronic cor pulmonale AAA Plan: Continue patient's home cardiac medications Transition IV Lasix to oral 40 mg twice daily Monitor I&O Weights renal function and electrolytes No need to repeat echocardiogram as this was done in July Further recommendations to follow based upon clinical course Nurse practitioner note has been reviewed, I agree with documented findings and plan of care. Patient was seen and examined. Objective - Vital Signs Vital signs: Vital Signs Temp 98.8 F 01/14/25 09:20 Pulse 99 01/14/25 09:20 Resp 18 01/14/25 09:20 BP 115/75 01/14/25 09:20 Pulse Ox 95 01/14/25 09:20 FiO2 59 01/14/25 09:20 Intake & Output 01/13/25 01/14/25 01/14/25 18:59 06:59 18:59 Intake Total 1140 30 100 Balance 1140 30 100 Weight 63.5 kg 62.6 kg Intake: IV 300 30 Azithromycin 500 mg In 250 Sodium Chloride 0.9% 250 ml @ 250 mls/hr IVPB DAILY [facility] Rx#:[id number] Invasive Line 1 10 Invasive Line 2 20 cefTRIAXone 2 gm In 50 Sodium Chloride 0.9% 50 ml @ 100 mls/hr IVPB Q24H [facility] Rx#:[id number] Oral 840 100 Other: Voiding Method Bedside Commode # Voids 1 1 1 # Bowel Movements 1 1 - Labs CBC & Chem 7: 01/14/25 07:15 01/14/25 07:15 Labs: Abnormal Lab Results - Last 24 Hours (Table) 01/14/25 01/14/25 Range/Units 07:15 07:15 WBC 17.16 H (4.50-10.00) 10*3/uL RBC 3.84 L (4.10-5.20) 10*6/uL Hgb 10.3 L (12.0-15.0) g/dL Hct 33.3 L (37.2-46.3) % MCH 26.8 L (27.0-32.0) pg MCHC 30.9 L (32.0-37.0) g/dL Immature Gran # 0.24 H (0.00-0.04) 10*3/uL Neutrophils # 15.56 H (1.80-7.70) 10*3/uL Lymphocytes # 0.61 L (0.90-5.00) 10*3/uL Eosinophils # 0.00 L (0.04-0.35) 10*3/uL BUN 27 H (7-17) mg/dL Glucose 167 H (74-99) mg/dL Microbiology - Last 24 Hours (Table) 01/11/25 23:11 Blood Culture - Preliminary Blood
--- NOTE | 2025-01-14 14:31 | P.PN ---
Subjective Progress Note Date: 01/14/25 Patient is a 74-year-old female with past medical history significant for COPD, interstitial fibrosis, pulmonary hypertension suspected group 3, cor pulmonale, chronic hypoxemic respiratory failure. Echocardiogram from July, estimating normal LV function, mild mitral regurgitation, RVSP of 67 with RV dysfunction. Did have a left and right heart catheterization done August, with PA pressure of 63/39 mmHg, PCWP 15. PAH felt to be related to patient's chronic lung disease. Also, patient was found to have mild nonobstructive coronary disease. Of note, patient recently hospitalized Nov, 2024, she had a near syncopal event. Patient brought into the emergency department late last night by EMS, in a state of respiratory distress, placed on high flow cannula/Airvo. She is an ECF resident from [facility]. Chief complaint of acute on chronic shortness of breath starting yesterday morning. Intermittent improvement with breathing treatments. Workup in the ED including x-ray which was remarkable for cardiomegaly, pulmonary vascular congestion, and diffuse increased lung markings bilaterally, greater on the left. Labs including a CBC with a WBC count of 27.7, hemoglobin 11.3, platelets 343. CMP with a sodium 137, potassium 3, chloride 99, serum bicarb 26, BUN 19, creatinine 0.73, glucose 130. Lactic 1.3. LFTs unremarkable. EKG: Sinus tachycardia, rate 106 bpm, frequent PACs, incomplete RBBB pattern. Troponin 0.04. NT proBNP significantly elevated at 18,500. Did receive a 80 mg dose of Lasix earlier in the ED. Patient currently being evaluated in the ED. She is resting comfortably on Airvo 50 L and 75%. She is awake and alert without signs of CO2 narcosis. ABG done previously with a PaO2 of 68, pCO2 35, pH of 7.48. Tachypneic. Speaking in complete sentences. Patient states that her increased difficulty in breathing started approximately 24 hours ago. She has had increased swelling in her lower extremities, starting approximately 4 days ago. Denies missing any doses of her Lasix. Denies chest pain, heart palpitations, lightheadedness or syncopal events. She denies any URI-like symptoms. She has a chronic cough, which is mostly dry. Denies any purulent sputum production, hemoptysis, or chest pain. Denies any fevers or chills. Previously started on azithromycin and Rocephin in the ED, which are essentially empiric. Current vital signs: Temperature 99.6 F, heart rate 91 bpm, blood pressure 95/69 mmHg, tachypneic, SpO2 recorded as 94% on above-mentioned Airvo settings. The patient is seen today January 13, 2025 in follow-up on the selective care unit. She is currently sitting up in bed. Awake and alert in no acute distress. She is still requiring Airvo high flow oxygen at 45 L and 65% FiO2. She has been afebrile. Hemodynamically stable. Blood culture reveals no growth thus far. White count 19.7. Hemoglobin 10.8. Platelets 329. Sodium 141. Potassium 4.4. Bicarb 23. BUN 21. Creatinine 0.70. Glucose 146. Procalcitonin was negative at 0.20. She remains on DuoNeb ventilations, Symbicort, Solu-Medrol, Spiriva. Continued on IV diuretics. Lovenox for DVT prophylaxis. Remains on ceftriaxone. The patient is seen today January 14, 2025 in follow-up on the selective care unit. She is awake and alert in no acute distress. Breathing easier today compared to yesterday. Resting fairly comfortably in bed. She remains on Airvo high flow oxygen at 40 L and 60% FiO2. She remains on DuoNeb inhalations, Symbicort, Solu-Medrol, Spiriva. Continued on oral diuretics. Continued on Mucinex. Lovenox for DVT prophylaxis. Remains on ceftriaxone. Procalcitonin was negative at 0.20. White count 17.1. Hemoglobin 10.3. Platelets 293. Sodium 137. Potassium 5.0. Bicarb 27. BUN 27. Creatinine 0.85. Glucose 167. Objective - Vital Signs Vital signs: Vital Signs Temp 98.8 F 01/14/25 09:20 Pulse 92 01/14/25 12:35 Resp 18 01/14/25 12:35 BP 120/79 01/14/25 12:35 Pulse Ox 93 L 01/14/25 12:35 FiO2 52 01/14/25 12:35 Intake & Output 01/13/25 01/14/25 01/14/25 18:59 06:59 18:59 Intake Total 1140 30 218 Balance 1140 30 218 Weight 63.5 kg 62.6 kg Intake: IV 300 30 Azithromycin 500 mg In 250 Sodium Chloride 0.9% 250 ml @ 250 mls/hr IVPB DAILY [facility] Rx#:[id number] Invasive Line 1 10 Invasive Line 2 20 cefTRIAXone 2 gm In 50 Sodium Chloride 0.9% 50 ml @ 100 mls/hr IVPB Q24H [facility] Rx#:[id number] Oral 840 218 Other: Voiding Method Bedside Commode # Voids 1 1 1 # Bowel Movements 1 1 - Exam GENERAL EXAM: Alert, 74-year-old female, sitting up in bed, on Airvo high flow oxygen, comfortable in no apparent distress. HEAD: Normocephalic. EYES: Normal reaction of pupils, equal size. NOSE: Clear with pink turbinates. THROAT: No erythema or exudates. NECK: No masses, no JVD. CHEST: No chest wall deformity. LUNGS: Equal air entry with few scattered rhonchi. CVS: S1 and S2 normal with no audible murmur, regular rhythm. ABDOMEN: No hepatosplenomegaly, normal bowel sounds, no guarding or rigidity. SPINE: No scoliosis or deformity SKIN: No rashes CENTRAL NERVOUS SYSTEM: No focal deficits, tone is normal in all 4 extremities. EXTREMITIES: There is no peripheral edema. No clubbing, no cyanosis. Peripheral pulses are intact. - Labs CBC & Chem 7: 01/14/25 07:15 01/14/25 07:15 Labs: Abnormal Lab Results - Last 24 Hours (Table) 01/14/25 01/14/25 Range/Units 07:15 07:15 WBC 17.16 H (4.50-10.00) 10*3/uL RBC 3.84 L (4.10-5.20) 10*6/uL Hgb 10.3 L (12.0-15.0) g/dL Hct 33.3 L (37.2-46.3) % MCH 26.8 L (27.0-32.0) pg MCHC 30.9 L (32.0-37.0) g/dL Immature Gran # 0.24 H (0.00-0.04) 10*3/uL Neutrophils # 15.56 H (1.80-7.70) 10*3/uL Lymphocytes # 0.61 L (0.90-5.00) 10*3/uL Eosinophils # 0.00 L (0.04-0.35) 10*3/uL BUN 27 H (7-17) mg/dL Glucose 167 H (74-99) mg/dL Microbiology - Last 24 Hours (Table) 01/11/25 23:11 Blood Culture - Preliminary Blood Assessment and Plan Assessment: Acute on chronic hypoxemic respiratory failure secondary to an acute exacerbation of diastolic congestive heart failure, currently requiring Airvo 40 L and 60%, chest x-ray showing cardiomegaly, pulmonary vascular congestion, increased interstitial markings bilaterally, greater on the left. NT proBNP 18,500 Acute COPD exacerbation. Procalcitonin negative Pulmonary hypertension with RV dysfunction and cor pulmonale Bilateral lower extremity edema Acute leukocytosis Hypokalemia, replaced Elevated troponins, likely secondary to supply/demand mismatch COPD/emphysema Pulmonary hypertension, suspect group 3, echocardiogram from 08/07/2024 showed a preserved LV function, nevertheless, the patient had severe pulmonary hypertension. RV was severely dilated and estimated PA pressure was 67. She had also moderate TR. Did have a follow-up confirmatory right-sided heart catheterization with a mean pulmonary artery pressure of 47 mmHg and pulmonary capillary wedge pressure of 15 suggestive of pre-capillary pulmonary hypertension. Chronic hypoxemic respiratory failure, typically wears 4 to 5 L/min nasal cannula while at home History of nonobstructive coronary artery disease Infrarenal abdominal aortic aneurysm, 4.7 cm follows with vascular surgery outpatient Systemic hypertension History of hyperlipidemia Peripheral vascular disease and carotid artery stenosis Former tobacco smoker Anxiety/depression Plan: The patient was seen and evaluated Labs and medications reviewed Continue DuoNeb inhalations Continue Symbicort and Spiriva Lovenox for DVT prophylaxis Continued on diuretics Procalcitonin negative Discontinued ceftriaxone Titrate down the FiO2 as tolerated Increase her activity as tolerated Follow-up chest x-ray in a.m. We will continue to follow I have personally seen and examined the patient, performed the documentation and the assessment and plan as written. Number of minutes spent on the visit: 10 Dictation was produced using [employer] dictation software. Please excuse any grammatical, word or spelling errors.
[2025-01-14] MEDS: FUROSEMIDE 40 MG TAB PO SCH (17:29)
--- NOTE | 2025-01-15 06:35 | XR ---
EXAMINATION TYPE: XR chest 1V portable DATE OF EXAM: 01/15/2025 COMPARISON: 01/11/2025 CLINICAL INDICATION: Female, 74 years old with history of CHF; TECHNIQUE: Single frontal view of the chest is obtained. FINDINGS: There is no change in the diffuse interstitial opacity. There is no pleural effusion or pneumothorax. The heart is normal in size. The osseous structures are intact. IMPRESSION: No change in the interstitial markings suggestive of chronic interstitial change related to COPD and interstitial scarring. CHF not entirely excluded and clinical correlation is recommended. [facility], , 01/15/2025 6:33 AM
[2025-01-15 07:11] LABS: Basophils # (A) 0.01 10*3/uL (0.00-0.10); Basophils % (A) 0.1 %; HCT 34.1 % (37.2-46.3); HGB 10.3 g/dL (12.0-15.0); Lymphocytes # (A) 0.55 10*3/uL (0.90-5.00); Lymphocytes % (A) 4.3 %; MCH 25.7 pg (27.0-32.0); MCHC 30.2 g/dL (32.0-37.0); Mean Platelet Volume 10.5 fL (9.5-12.2); Monocytes # (A) 0.48 10*3/uL (0.20-1.00); Monocytes % (A) 3.7 %; Platelet Count 294 10*3/uL (140-440); RBC 4.01 10*6/uL (4.10-5.20); RDW 17.9 % (11.5-14.5); WBC 12.86 10*3/uL (4.50-10.00)
[2025-01-15 07:31] LABS: African American GFR (CKD) 83 (>60 ml/min/1.73 sqM); Anion Gap 9 mmol/L; Blood Urea Nitrogen 29 mg/dL (7-17); Calcium 9.3 mg/dL (8.4-10.2); Carbon Dioxide 27 mmol/L (22-30); Chloride 101 mmol/L (98-107); Glucose 172 mg/dL (74-99); Non-African American GFR(CKD) 72 (>60 ml/min/1.73 sqM); Potassium 4.2 mmol/L (3.5-5.1); Sodium 137 mmol/L (137-145)
[2025-01-15] MEDS ORDERED: DEXTROSE 50% SYRINGE 50 ML IVP PRN ×2 (11:24)
[2025-01-15 11:27] LABS: Glucose,Whole Blood 209 mg/dL (70-110)
--- NOTE | 2025-01-15 12:06 | P.PN ---
Subjective Progress Note Date: 01/15/25 Patient is a 74-year-old female with past medical history significant for COPD, interstitial fibrosis, pulmonary hypertension suspected group 3, cor pulmonale, chronic hypoxemic respiratory failure. Echocardiogram from July, estimating normal LV function, mild mitral regurgitation, RVSP of 67 with RV dysfunction. Did have a left and right heart catheterization done August, with PA pressure of 63/39 mmHg, PCWP 15. PAH felt to be related to patient's chronic lung disease. Also, patient was found to have mild nonobstructive coronary disease. Of note, patient recently hospitalized Nov, 2024, she had a near syncopal event. Patient brought into the emergency department late last night by EMS, in a state of respiratory distress, placed on high flow cannula/Airvo. She is an ECF resident from [facility]. Chief complaint of acute on chronic shortness of breath starting yesterday morning. Intermittent improvement with breathing treatments. Workup in the ED including x-ray which was remarkable for cardiomegaly, pulmonary vascular congestion, and diffuse increased lung markings bilaterally, greater on the left. Labs including a CBC with a WBC count of 27.7, hemoglobin 11.3, platelets 343. CMP with a sodium 137, potassium 3, chloride 99, serum bicarb 26, BUN 19, creatinine 0.73, glucose 130. Lactic 1.3. LFTs unremarkable. EKG: Sinus tachycardia, rate 106 bpm, frequent PACs, incomplete RBBB pattern. Troponin 0.04. NT proBNP significantly elevated at 18,500. Did receive a 80 mg dose of Lasix earlier in the ED. Patient currently being evaluated in the ED. She is resting comfortably on Airvo 50 L and 75%. She is awake and alert without signs of CO2 narcosis. ABG done previously with a PaO2 of 68, pCO2 35, pH of 7.48. Tachypneic. Speaking in complete sentences. Patient states that her increased difficulty in breathing started approximately 24 hours ago. She has had increased swelling in her lower extremities, starting approximately 4 days ago. Denies missing any doses of her Lasix. Denies chest pain, heart palpitations, lightheadedness or syncopal events. She denies any URI-like symptoms. She has a chronic cough, which is mostly dry. Denies any purulent sputum production, hemoptysis, or chest pain. Denies any fevers or chills. Previously started on azithromycin and Rocephin in the ED, which are essentially empiric. Current vital signs: Temperature 99.6 F, heart rate 91 bpm, blood pressure 95/69 mmHg, tachypneic, SpO2 recorded as 94% on above-mentioned Airvo settings. The patient is seen today January 13, 2025 in follow-up on the selective care unit. She is currently sitting up in bed. Awake and alert in no acute distress. She is still requiring Airvo high flow oxygen at 45 L and 65% FiO2. She has been afebrile. Hemodynamically stable. Blood culture reveals no growth thus far. White count 19.7. Hemoglobin 10.8. Platelets 329. Sodium 141. Potassium 4.4. Bicarb 23. BUN 21. Creatinine 0.70. Glucose 146. Procalcitonin was negative at 0.20. She remains on DuoNeb ventilations, Symbicort, Solu-Medrol, Spiriva. Continued on IV diuretics. Lovenox for DVT prophylaxis. Remains on ceftriaxone. The patient is seen today January 14, 2025 in follow-up on the selective care unit. She is awake and alert in no acute distress. Breathing easier today compared to yesterday. Resting fairly comfortably in bed. She remains on Airvo high flow oxygen at 40 L and 60% FiO2. She remains on DuoNeb inhalations, Symbicort, Solu-Medrol, Spiriva. Continued on oral diuretics. Continued on Mucinex. Lovenox for DVT prophylaxis. Remains on ceftriaxone. Procalcitonin was negative at 0.20. White count 17.1. Hemoglobin 10.3. Platelets 293. Sodium 137. Potassium 5.0. Bicarb 27. BUN 27. Creatinine 0.85. Glucose 167. The patient is seen today January 15, 2025 in follow-up on the selective care unit. She is sitting up in bed. Awake and alert in no acute distress. States she is breathing better today compared to yesterday. She remains on Airvo high flow oxygen at 40 L and 60% FiO2. She is continued on DuoNeb inhalations, Symbicort, Solu-Medrol. Remains on oral diuretics. Lovenox for DVT prophylaxis. Glucose 209. White count 12.8. Hemoglobin 10.3. Platelets 294. Sodium 137. Potassium 4.2. Bicarb 27. BUN 29. Creatinine 0.82. Chest x-ray shows no significant change in the interstitial markings suggestive of COPD and interstitial scarring. CHF not excluded. Objective - Vital Signs Vital signs: Vital Signs Temp 98 F 01/15/25 11:45 Pulse 90 01/15/25 11:45 Resp 18 01/15/25 11:45 BP 107/69 01/15/25 11:45 Pulse Ox 90 L 01/15/25 11:45 FiO2 60 01/15/25 11:45 Intake & Output 01/14/25 01/15/25 01/15/25 18:59 06:59 18:59 Intake Total 318 240 240 Output Total 1 1000 700 Balance 317 760 -460 Weight 62.3 kg Intake: Oral 318 240 240 Output: Urine 1000 700 Stool 1 Other: Voiding Method Bedside Commode Bedside Commode # Voids 1 1 # Bowel Movements 1 - Exam GENERAL EXAM: Alert, 74-year-old female, on Airvo high flow oxygen, in no apparent distress. HEAD: Normocephalic. EYES: Normal reaction of pupils, equal size. NOSE: Clear with pink turbinates. THROAT: No erythema or exudates. NECK: No masses, no JVD. CHEST: No chest wall deformity. LUNGS: Equal air entry with few scattered rhonchi. CVS: S1 and S2 normal with no audible murmur, regular rhythm. ABDOMEN: No hepatosplenomegaly, normal bowel sounds, no guarding or rigidity. SPINE: No scoliosis or deformity SKIN: No rashes CENTRAL NERVOUS SYSTEM: No focal deficits, tone is normal in all 4 extremities. EXTREMITIES: There is no peripheral edema. No clubbing, no cyanosis. Peripheral pulses are intact. - Labs CBC & Chem 7: 01/15/25 06:44 01/15/25 06:44 Labs: Abnormal Lab Results - Last 24 Hours (Table) 01/15/25 01/15/25 01/15/25 Range/Units 06:44 06:44 11:26 WBC 12.86 H (4.50-10.00) 10*3/uL RBC 4.01 L (4.10-5.20) 10*6/uL Hgb 10.3 L (12.0-15.0) g/dL Hct 34.1 L (37.2-46.3) % MCH 25.7 L (27.0-32.0) pg MCHC 30.2 L (32.0-37.0) g/dL Immature Gran # 0.12 H (0.00-0.04) 10*3/uL Neutrophils # 11.70 H (1.80-7.70) 10*3/uL Lymphocytes # 0.55 L (0.90-5.00) 10*3/uL Eosinophils # 0.00 L (0.04-0.35) 10*3/uL BUN 29 H (7-17) mg/dL Glucose 172 H (74-99) mg/dL POC Glucose (mg/dL) 209 H (70-110) mg/dL Microbiology - Last 24 Hours (Table) 01/11/25 23:11 Blood Culture - Preliminary Blood Assessment and Plan Assessment: Acute on chronic hypoxemic respiratory failure secondary to an acute exacerbation of diastolic congestive heart failure, currently requiring Airvo 40 L and 60%, chest x-ray showing cardiomegaly, pulmonary vascular congestion, increased interstitial markings bilaterally, greater on the left. NT proBNP 18,500 Acute COPD exacerbation. Procalcitonin negative Pulmonary hypertension with RV dysfunction and cor pulmonale Bilateral lower extremity edema Acute leukocytosis Hypokalemia, replaced Elevated troponins, likely secondary to supply/demand mismatch COPD/emphysema Pulmonary hypertension, suspect group 3, echocardiogram from 08/07/2024 showed a preserved LV function, nevertheless, the patient had severe pulmonary hypertension. RV was severely dilated and estimated PA pressure was 67. She had also moderate TR. Did have a follow-up confirmatory right-sided heart cath eterization with a mean pulmonary artery pressure of 47 mmHg and pulmonary capillary wedge pressure of 15 suggestive of pre-capillary pulmonary hypertension. Chronic hypoxemic respiratory failure, typically wears 4 to 5 L/min nasal cannula while at home History of nonobstructive coronary artery disease Infrarenal abdominal aortic aneurysm, 4.7 cm follows with vascular surgery outpatient Systemic hypertension History of hyperlipidemia Peripheral vascular disease and carotid artery stenosis Former tobacco smoker Anxiety/depression Plan: The patient was seen and evaluated Chest x-ray, labs and medications reviewed Continue DuoNeb inhalations Continue Symbicort and Spiriva Lovenox for DVT prophylaxis Continued on diuretics Titrate down the FiO2 as tolerated Increase her activity as tolerated We will continue to follow I have personally seen and examined the patient, performed the documentation and the assessment and plan as written. Number of minutes spent on the visit: 10 Dictation was produced using [employer] dictation software. Please excuse any grammatical, word or spelling errors.
[2025-01-15] MEDS: INSULIN LISPRO (HumaLOG) 100 UNIT/ML 10 mL VL SQ SCH (12:44)
--- NOTE | 2025-01-15 14:28 | P.PN ---
Subjective Progress Note Date: 01/15/25 Hospital Course: Patient is a 74-year-old female with a past medical history of advanced COPD w ith chronic hypoxic respiratory failure home oxygen dependent on 4 L, severe pulmonary hypertension, infrarenal abdominal aortic aneurysm reported at approximately 6 cm and awaiting repair, hypertension, hyperlipidemia, and former smoker with > 40 pack per year history. Patient reports that she follows with Dr. Colunga, fairing worker and Dr. Fontana for sports medicine coordinator. presented to ED with shortness of breath. She report her shortness of breath started yesteday morning. She used her inhalers but that did not help with her symptoms a lot. Patient was recently admitted to our facility for COPD exacerbation and was discharged on 12/17/24. Associated with that she experiences lower extremity swelling since 4 days. Additionally, she has had an episode of epistaxis, and she reports improvement in her symptoms now. Denies being on blood thinners. Denies fever, chest pain, palpitations, abdominal pain, nausea, vomiting, hematuria, dysuria, hematochezia, melena, headache, slurred speech, numbness, tingling, dizziness, lightheadedness, blurred vision, double vision. ED documentation reviewed. In the ED patient was treated with nebulized albuterol, fluticasone, furosemide, DuoNeb, Tylenol, oxymetazoline nasal spray, potassium bicarb 40 mg, potassium chloride 20 mill equivalents, Rocephin Zithromax, Solu-Medrol. Vitals on admission T 99.6 F, [place] 107 bpm, RR 20, BP 109/66, SpO2 90% on 15 L nonrebreather.EKG :sinus tachycardia, rate 106 bpm, incomplete RBBB, QTc 380 ms.Chest x-ray shows clinical correlation recommended for congestive heart failure, findings are worsening from comparison.Venous Doppler study shows no DVT bilaterally Labs on admission show WBC 27.72, hemoglobin 11.3, MCV 85, platelet 343, INR 1.0, sodium 137, potassium 3.0, BUN 19, creatinine 0.73, glucose 130, lactic acid 1.3, NT proBNP 79074, troponin I 0.04 Admitted for further management of acute on chronic hypoxic respiratory failure, new onset CHF exacerbation and possible community-acquired pneumonia, troponin elevation, cardiology and pulmonology on consult, started on IV Lasix, IV antibiotics. Oxygen requirement improved, Continued on Airvo 45 L 70%.-->45L, 65%.--> 40 L 60%-->40L 55%, planning to transition to high flow nasal cannula 01/15: Seen and examined at bedside, no acute events overnight, breathing status is improving, lower extremity swelling resolved, leukocytosis improving 12.8to day, hemoglobin stable 10.3, BMP with normal creatinine, sodium, potassium, bicarb. Discussed with RN. Antibiotics discontinued due to negative procalcitonin. Pertinent positives and negatives as discussed above, a complete review of systems was performed and all other systems are negative. Vitals Signs Reviewed. General: [nontoxic], [no distress], [appears at stated age] Derm: [warm], [dry] Head: [atraumatic], [normocephalic], [symmetric] Eyes: [EOMI], [no lid lag], [anicteric sclera] Mouth: [no lip lesion], [mucus membranes moist] Cardiovascular: [S1S2 reg], [murmur] Lungs: [Diminished bilateral breath sounds, no wheezing, on airvo Abdominal: [soft], [ nontender to palpation], [no guarding], [no appreciable organomegaly] Ext: [no gross muscle atrophy], [resolved edema], [no contractures] Neuro: [ CN II-XI grossly intact], [no focal neuro deficits] Psych: [Alert], [oriented], [appropriate affect] Assessment and Plan: Acute on chronic respiratory failure with hypoxia Possible community-acquired pneumonia Advanced COPD without acute exacerbation severe pulmonary hypertension -Consult to Pulmonology and cardiology, appreciate recommendations -Continue strict I's and O's, daily weights, Lasix 40 oral twice daily, BMP daily while on diuretics - No need to repeat TTE per cardiology - Antibiotics discontinued -Oxygenation to be administered and titrated as needed to maintain SPO2 equal to or greater than 92% -Telemetry monitoring. -Monitor pulse-oximetry -Duonebs scheduled 4 times daily and as needed for SOB and/or wheezing -Incentive Spirometry -Steroids: Solu-Medrol 40 IV every 8 hours -Continue Spiriva 2 puffs daily, Ranexa 20 mg 3 times daily and Symbicort 160- 4.5 mcg inhaler 2 puffs twice daily. Elevated troponin, likely secondary to demand ischemia resulting from hypoxia -Cardiology consulted, appreciate recommendations -Telemetry monitoring -Trend troponins Hypokalemia, resolved: discontinue oral potassium to 40 mEq daily Possible adrenal insufficiency due to chronic steroid use, will hold fludrocortisone 0.1 daily while patient is on high-dose of Solu-Medrol Infrarenal abdominal aortic aneurysm -Patient denies having any complaints including abdominal pain, back pain, experiencing any numbness/tingling/weakness in her extremities. Continue to follow-up with cardiology Hypertension -Monitor vital signs and continue daily medication regimen with Toprol-XL 12.5 daily Hyperlipidemia -Continue daily medication regimen with atorvastatin 40 mg daily. Anxiety and depression -Continue Zoloft 50 mg daily. CODE STATUS: Full code DVT prophylaxis: Lovenox Anticipated discharge date: Pending clinical course Anticipated discharge place: Pending clinical course Objective - Vital Signs Vital signs: Vital Signs Temp 98 F 01/15/25 11:45 Pulse 98 01/15/25 12:50 Resp 18 01/15/25 11:45 BP 107/69 01/15/25 11:45 Pulse Ox 94 L 01/15/25 12:41 FiO2 55 01/15/25 12:41 Intake & Output 01/14/25 01/15/25 01/15/25 18:59 06:59 18:59 Intake Total 318 240 480 Output Total 1 1000 700 Balance 317 -760 -220 Weight 62.3 kg Intake: Oral 318 240 480 Output: Urine 1000 700 Stool 1 Other: Voiding Method Bedside Commode Bedside Commode # Voids 1 1 # Bowel Movements 1 - Labs CBC & Chem 7: 01/15/25 06:44 01/15/25 06:44 Labs: Abnormal Lab Results - Last 24 Hours (Table) 01/15/25 01/15/25 01/15/25 Range/Units 06:44 06:44 11:26 WBC 12.86 H (4.50-10.00) 10*3/uL RBC 4.01 L (4.10-5.20) 10*6/uL Hgb 10.3 L (12.0-15.0) g/dL Hct 34.1 L (37.2-46.3) % MCH 25.7 L (27.0-32.0) pg MCHC 30.2 L (32.0-37.0) g/dL Immature Gran # 0.12 H (0.00-0.04) 10*3/uL Neutrophils # 11.70 H (1.80-7.70) 10*3/uL Lymphocytes # 0.55 L (0.90-5.00) 10*3/uL Eosinophils # 0.00 L (0.04-0.35) 10*3/uL BUN 29 H (7-17) mg/dL Glucose 172 H (74-99) mg/dL POC Glucose (mg/dL) 209 H (70-110) mg/dL Microbiology - Last 24 Hours (Table) 01/11/25 23:11 Blood Culture - Preliminary Blood
[2025-01-15 16:59] LABS: Glucose,Whole Blood 196 mg/dL (70-110)
--- NOTE | 2025-01-15 17:30 | P.PN ---
Subjective Progress Note Date: 01/15/25 This is a 74-year-old female patient of Dr. Fontana with past medical history of abdominal aortic aneurysm of 6 cm waiting for repair, hypertension, hyperlipidemia, mild nonobstructing coronary artery disease, severe pulmonary hypertension, carotid artery stenosis, COPD, chronic hypoxic respiratory failure on home O2 at 4 L nasal cannula. We have been asked to evaluate the patient for new onset of heart failure. Patient states that she came into the hospital due to trouble breathing that has been going on for 4 years. She also complains of lower extremity edema. She states that yesterday her pulse ox was reading 60s and 70s so she decided to come in to the hospital for further evaluation. Blood pressure 107/72, heart rate 98, pulse ox 98% on high flow cannula FiO2 of 65. Patient has been started on IV antibiotics, nebulizer treatments and IV steroids. -EKG: Sinus rhythm 106 bpm with PACs -Chest x-ray: CHF. -Venous duplex bilateral lower extremities: No DVT. -CTA chest: Left upper lobe pneumonia. No pulmonary embolus. Severe changes of COPD. Cardiomegaly. Pulmonary artery hypertension. -Laboratory studies: WBC 18.7, hemoglobin 10.4. Potassium 3.4, troponin 0.04 and 0.035. proBNP 18,500. Procalcitonin less than 0.2. Cepheid viral panel not detected. -Home cardiac medications: Aspirin 81 mg daily, atorvastatin 40 mg at bedtime, Lasix 40 mg daily, Toprol-XL 12.5 mg daily, sildenafil 20 mg 3 times daily. -Cardiac catheterization performed 09/24/2024 revealed CAD with 30 to 40% mid to distal LAD, 40% OM1, 50% distal RCA, small aneurysmal portion of the mid RCA. Normal left-sided filling pressures and elevated right sided filling pressures. Precapillary pulmonary hypertension. - Echocardiogram performed on 08/06/2024 revealed EF of 55%, severe right ventricular dilation with RV: LV ratio of 1.95. Mild to moderate right ventricular hypokinesis. Pulmonary hypertension with RVSP 67. This may be underestimated secondary to RV failure. Mild mitral regurgitation. Moderate tricuspid regurgitation. 01/14/2025 Patient seen and examined on the cardiac stepdown unit. Patient is currently on air Vo. She states she is feeling better today her breathing is better but she states she is very emotional today because of the multiple medical problems that she is facing. She is concerned that she is not able to get her AAA repair done as this has already been postponed due to acute conditions. Patient has been maintained on IV Lasix 40 mg every 12 hours. Blood pressure 101/68, heart rate 103, pulse ox 93% on high flow nasal cannula. Repeat blood work reveals WBC 19.7, hemoglobin 10.8, BUN 21 creatinine 0.7. 01/15/2025 BP 115/78, heart rate 95, Hb 10, BUN 29, creatinine 0.8 Telemetry shows sinus tachycardia heart rate around 100, intermittent PVCs Physical examination: Gen: This is a 74-year-old female in no acute distress VS: reviewed HEENT: Head is atraumatic, normocephalic. Pupils equal, round. Sclerae is anicteric. NECK: Supple. No JVD. LUNGS: Clear to auscultation. No wheezes or rhonchi. No intercostal retractions. HEART: Regular rate and rhythm. No murmur. ABDOMEN: Soft No tenderness. EXTREMITIES: Moderate bilateral lower extremity pitting edema. No calf tenderness. NEUROLOGICAL: Patient is awake, alert and oriented x3. 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 No further cardiac workup needed at this time. At this time cardiology team will sign off. Please reconsult us in case of any question. 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 Objective - Vital Signs Vital signs: Vital Signs Temp 98 F 01/15/25 11:45 Pulse 84 01/15/25 15:55 Resp 16 01/15/25 15:40 BP 115/78 01/15/25 15:40 Pulse Ox 92 L 01/15/25 15:47 FiO2 55 01/15/25 15:47 Intake & Output 01/14/25 01/15/25 01/15/25 18:59 06:59 18:59 Intake Total 318 240 480 Output Total 1 1000 700 Balance 923 -760 -220 Weight 62.3 kg Intake: Oral 318 240 480 Output: Urine 1000 700 Stool 1 Other: Voiding Method Bedside Commode Bedside Commode # Voids 1 1 # Bowel Movements 1 - Labs CBC & Chem 7: 01/15/25 06:44 01/15/25 06:44 Labs: Abnormal Lab Results - Last 24 Hours (Table) 01/15/25 01/15/25 01/15/25 Range/Units 06:44 06:44 11:26 WBC 12.86 H (4.50-10.00) 10*3/uL RBC 4.01 L (4.10-5.20) 10*6/uL Hgb 10.3 L (12.0-15.0) g/dL Hct 34.1 L (37.2-46.3) % MCH 25.7 L (27.0-32.0) pg MCHC 30.2 L (32.0-37.0) g/dL Immature Gran # 0.12 H (0.00-0.04) 10*3/uL Neutrophils # 11.70 H (1.80-7.70) 10*3/uL Lymphocytes # 0.55 L (0.90-5.00) 10*3/uL Eosinophils # 0.00 L (0.04-0.35) 10*3/uL BUN 29 H (7-17) mg/dL Glucose 172 H (74-99) mg/dL POC Glucose (mg/dL) 209 H (70-110) mg/dL 01/15/25 Range/Units 16:57 WBC (4.50-10.00) 10*3/uL RBC (4.10-5.20) 10*6/uL Hgb (12.0-15.0) g/dL Hct (37.2-46.3) % MCH (27.0-32.0) pg MCHC (32.0-37.0) g/dL Immature Gran # (0.00-0.04) 10*3/uL Neutrophils # (1.80-7.70) 10*3/uL Lymphocytes # (0.90-5.00) 10*3/uL Eosinophils # (0.04-0.35) 10*3/uL BUN (7-17) mg/dL Glucose (74-99) mg/dL POC Glucose (mg/dL) 196 H (70-110) mg/dL Microbiology - Last 24 Hours (Table) 01/11/25 23:11 Blood Culture - Preliminary Blood
[2025-01-15 20:16] LABS: Glucose,Whole Blood 210 mg/dL (70-110)
[2025-01-16 06:00] LABS: Glucose,Whole Blood 180 mg/dL (70-110)
[2025-01-16 07:08] LABS: Basophils # (A) 0.02 10*3/uL (0.00-0.10); Basophils % (A) 0.1 %; HCT 35.7 % (37.2-46.3); HGB 10.9 g/dL (12.0-15.0); Lymphocytes # (A) 0.62 10*3/uL (0.90-5.00); Lymphocytes % (A) 4.5 %; MCH 26.2 pg (27.0-32.0); MCHC 30.5 g/dL (32.0-37.0); MCV 85.8 fL (80.0-97.0); Mean Platelet Volume 11.3 fL (9.5-12.2); Monocytes # (A) 0.56 10*3/uL (0.20-1.00); Neutrophils # (A) 12.49 10*3/uL (1.80-7.70); Neutrophils % (A) 90.4 %; Platelet Count 327 10*3/uL (140-440); RBC 4.16 10*6/uL (4.10-5.20); RDW 17.8 % (11.5-14.5); WBC 13.83 10*3/uL (4.50-10.00)
[2025-01-16 07:12] LABS: African American GFR (CKD) 77 (>60 ml/min/1.73 sqM); Anion Gap 12 mmol/L; Blood Urea Nitrogen 30 mg/dL (7-17); Calcium 9.6 mg/dL (8.4-10.2); Carbon Dioxide 26 mmol/L (22-30); Chloride 97 mmol/L (98-107); Glucose 157 mg/dL (74-99); Non-African American GFR(CKD) 67 (>60 ml/min/1.73 sqM); Sodium 135 mmol/L (137-145)
--- NOTE | 2025-01-16 10:47 | P.PN ---
Subjective Progress Note Date: 01/16/25 Hospital Course: Patient is a 74-year-old female with a past medical history of advanced COPD w ith chronic hypoxic respiratory failure home oxygen dependent on 4 L, severe pulmonary hypertension, infrarenal abdominal aortic aneurysm reported at approximately 6 cm and awaiting repair, hypertension, hyperlipidemia, and former smoker with > 40 pack per year history. Patient reports that she follows with Dr. 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 presented to ED with shortness of breath. She report her shortness of breath started yesteday morning. She used her inhalers but that did not help with her symptoms a lot. Patient was recently admitted to our facility for COPD exacerbation and was discharged on 12/17/24. Associated with that she experiences lower extremity swelling since 4 days. Additionally, she has had an episode of epistaxis, and she reports improvement in her symptoms now. Denies being on blood thinners. Denies fever, chest pain, palpitations, abdominal pain, nausea, vomiting, hematuria, dysuria, hematochezia, melena, headache, slurred speech, numbness, tingling, dizziness, lightheadedness, blurred vision, double vision. ED documentation reviewed. In the ED patient was treated with nebulized albuterol, fluticasone, furosemide, DuoNeb, Tylenol, oxymetazoline nasal spray, potassium bicarb 40 mg, potassium chloride 20 mill equivalents, Rocephin Zithromax, Solu-Medrol. Vitals on admission T 99.6 F, LA 107 bpm, RR 20, BP 109/66, SpO2 90% on 15 L nonrebreather.EKG :sinus tachycardia, rate 106 bpm, incomplete RBBB, QTc 380 ms.Chest x-ray shows clinical correlation recommended for congestive heart failure, findings are worsening from comparison.Venous Doppler study shows no DVT bilaterally Labs on admission show WBC 27.72, hemoglobin 11.3, MCV 85, platelet 343, INR 1.0, sodium 137, potassium 3.0, BUN 19, creatinine 0.73, glucose 130, lactic acid 1.3, NT proBNP 09051, troponin I 0.04 Admitted for further management of acute on chronic hypoxic respiratory failure, new onset CHF exacerbation and possible community-acquired pneumonia, troponin elevation, cardiology and pulmonology on consult, started on IV Lasix, IV antibiotics. Oxygen requirement improved, Continued on Airvo 45 L 70%.---> 40 L, 40%, 01/16: Seen and examined at bedside, no acute events overnight, breathing status is improving, lower extremity swelling resolved, leukocytosis persisted and likely steroid-induced 13.8, hemoglobin stable 10.9, BMP with normal creatinine, potassium, bicarb. Cardiology signed off, patient will be continued on current treatment with goal to wean oxygen down to nasal cannula so she can be accepted to rehab facility Pertinent positives and negatives as discussed above, a complete review of systems was performed and all other systems are negative. Vitals Signs Reviewed. General: [nontoxic], [no distress], [appears at stated age] Derm: [warm], [dry] Head: [atraumatic], [normocephalic], [symmetric] Eyes: [EOMI], [no lid lag], [anicteric sclera] Mouth: [no lip lesion], [mucus membranes moist] Cardiovascular: [S1S2 reg], [murmur] Lungs: [Diminished bilateral breath sounds, no wheezing, on airvo Abdominal: [soft], [ nontender to palpation], [no guarding], [no appreciable organomegaly] Ext: [no gross muscle atrophy], [resolved edema], [no contractures] Neuro: [ CN II-XI grossly intact], [no focal neuro deficits] Psych: [Alert], [oriented], [appropriate affect] Assessment and Plan: Acute on chronic respiratory failure with hypoxia Possible community-acquired pneumonia Advanced COPD without acute exacerbation severe pulmonary hypertension Steroid-induced hyperglycemia -Consult to Pulmonology and cardiology, appreciate recommendations -Continue strict I's and O's, daily weights, Lasix 40 oral twice daily, BMP daily while on diuretics - No need to repeat TTE per cardiology - Antibiotics discontinued -Oxygenation to be administered and titrated as needed to maintain SPO2 equal to or greater than 92% -Telemetry monitoring. -Monitor pulse-oximetry -Duonebs scheduled 4 times daily and as needed for SOB and/or wheezing -Incentive Spirometry -Steroids: Solu-Medrol 40 IV every 8 hours -Continue Spiriva 2 puffs daily, Ranexa 20 mg 3 times daily and Symbicort 160- 4.5 mcg inhaler 2 puffs twice daily. - Accu-Cheks with hypoglycemia precautions and SSI for steroid-induced hyperglycemia Elevated troponin, likely secondary to demand ischemia resulting from hypoxia -Cardiology consulted, signed off -Telemetry monitoring -Trend troponins Hypokalemia, resolved: discontinue oral potassium to 40 mEq daily Possible adrenal insufficiency due to chronic steroid use, will hold fludrocortisone 0.1 daily while patient is on high-dose of Solu-Medrol Infrarenal abdominal aortic aneurysm -Patient denies having any complaints including abdominal pain, back pain, experiencing any numbness/tingling/weakness in her extremities. Continue to follow-up with cardiology Hypertension -Monitor vital signs and continue daily medication regimen with Toprol-XL 12.5 daily Hyperlipidemia -Continue daily medication regimen with atorvastatin 40 mg daily. Anxiety and depression -Continue Zoloft 50 mg daily. CODE STATUS: Full code DVT prophylaxis: Lovenox Anticipated discharge date: Rehab Anticipated discharge place: Pending clinical course Objective - Vital Signs Vital signs: Vital Signs Temp 98.5 F 01/16/25 08:45 Pulse 86 01/16/25 09:57 Resp 20 01/16/25 08:45 BP 105/70 01/16/25 08:45 Pulse Ox 85 L 01/16/25 10:03 FiO2 40 01/16/25 10:03 Intake & Output 01/15/25 01/16/25 01/16/25 18:59 06:59 18:59 Intake Total 1020 246 Output Total 1700 2 Balance -680 -2 246 Weight 62.2 kg Intake: IV 10 Invasive Line 2 10 Oral 1020 236 Output: Urine 1700 Stool 2 Other: Voiding Method Bedside Commode Bedside Commode Bedside Commode # Voids 2 # Bowel Movements 1 - Labs CBC & Chem 7: 01/16/25 05:25 01/16/25 05:25 Labs: Abnormal Lab Results - Last 24 Hours (Table) 01/15/25 01/15/25 01/15/25 Range/Units 11:26 16:57 20:14 WBC (4.50-10.00) 10*3/uL Hgb (12.0-15.0) g/dL Hct (37.2-46.3) % MCH (27.0-32.0) pg MCHC (32.0-37.0) g/dL Immature Gran # (0.00-0.04) 10*3/uL Neutrophils # (1.80-7.70) 10*3/uL Lymphocytes # (0.90-5.00) 10*3/uL Eosinophils # (0.04-0.35) 10*3/uL Sodium (137-145) mmol/L Chloride (98-107) mmol/L BUN (7-17) mg/dL Glucose (74-99) mg/dL POC Glucose (mg/dL) 209 H 196 H 210 H (70-110) mg/dL 01/16/25 01/16/25 01/16/25 Range/Units 05:25 05:25 05:59 WBC 13.83 H (4.50-10.00) 10*3/uL Hgb 10.9 L (12.0-15.0) g/dL Hct 35.7 L (37.2-46.3) % MCH 26.2 L (27.0-32.0) pg MCHC 30.5 L (32.0-37.0) g/dL Immature Gran # 0.14 H (0.00-0.04) 10*3/uL Neutrophils # 12.49 H (1.80-7.70) 10*3/uL Lymphocytes # 0.62 L (0.90-5.00) 10*3/uL Eosinophils # 0.00 L (0.04-0.35) 10*3/uL Sodium 135 L (137-145) mmol/L Chloride 97 L (98-107) mmol/L BUN 30 H (7-17) mg/dL Glucose 157 H (74-99) mg/dL POC Glucose (mg/dL) 180 H (70-110) mg/dL
[2025-01-16 11:55] LABS: Glucose,Whole Blood 131 mg/dL (70-110)
--- NOTE | 2025-01-16 12:27 | P.PN ---
Subjective Progress Note Date: 01/16/25 Patient is a 74-year-old female with past medical history significant for COPD, interstitial fibrosis, pulmonary hypertension suspected group 3, cor pulmonale, chronic hypoxemic respiratory failure. Echocardiogram from July, estimating normal LV function, mild mitral regurgitation, RVSP of 67 with RV dysfunction. Did have a left and right heart catheterization done August, with PA pressure of 63/39 mmHg, PCWP 15. PAH felt to be related to patient's chronic lung disease. Also, patient was found to have mild nonobstructive coronary disease. Of note, patient recently hospitalized Nov, 2024, she had a near syncopal event. Patient brought into the emergency department late last night by EMS, in a state of respiratory distress, placed on high flow cannula/Airvo. She is an ECF resident from [facility]. Chief complaint of acute on chronic shortness of breath starting yesterday morning. Intermittent improvement with breathing treatments. Workup in the ED including x-ray which was remarkable for cardiomegaly, pulmonary vascular congestion, and diffuse increased lung markings bilaterally, greater on the left. Labs including a CBC with a WBC count of 27.7, hemoglobin 11.3, platelets 343. CMP with a sodium 137, potassium 3, chloride 99, serum bicarb 26, BUN 19, creatinine 0.73, glucose 130. Lactic 1.3. LFTs unremarkable. EKG: Sinus tachycardia, rate 106 bpm, frequent PACs, incomplete RBBB pattern. Troponin 0.04. NT proBNP significantly elevated at 18,500. Did receive a 80 mg dose of Lasix earlier in the ED. Patient currently being evaluated in the ED. She is resting comfortably on Airvo 50 L and 75%. She is awake and alert without signs of CO2 narcosis. ABG done previously with a PaO2 of 68, pCO2 35, pH of 7.48. Tachypneic. Speaking in complete sentences. Patient states that her increased difficulty in breathing started approximately 24 hours ago. She has had increased swelling in her lower extremities, starting approximately 4 days ago. Denies missing any doses of her Lasix. Denies chest pain, heart palpitations, lightheadedness or syncopal events. She denies any URI-like symptoms. She has a chronic cough, which is mostly dry. Denies any purulent sputum production, hemoptysis, or chest pain. Denies any fevers or chills. Previously started on azithromycin and Rocephin in the ED, which are essentially empiric. Current vital signs: Temperature 99.6 F, heart rate 91 bpm, blood pressure 95/69 mmHg, tachypneic, SpO2 recorded as 94% on above-mentioned Airvo settings. The patient is seen today January 13, 2025 in follow-up on the selective care unit. She is currently sitting up in bed. Awake and alert in no acute distress. She is still requiring Airvo high flow oxygen at 45 L and 65% FiO2. She has been afebrile. Hemodynamically stable. Blood culture reveals no growth thus far. White count 19.7. Hemoglobin 10.8. Platelets 329. Sodium 141. Potassium 4.4. Bicarb 23. BUN 21. Creatinine 0.70. Glucose 146. Procalcitonin was negative at 0.20. She remains on DuoNeb ventilations, Symbicort, Solu-Medrol, Spiriva. Continued on IV diuretics. Lovenox for DVT prophylaxis. Remains on ceftriaxone. The patient is seen today January 14, 2025 in follow-up on the selective care unit. She is awake and alert in no acute distress. Breathing easier today compared to yesterday. Resting fairly comfortably in bed. She remains on Airvo high flow oxygen at 40 L and 60% FiO2. She remains on DuoNeb inhalations, Symbicort, Solu-Medrol, Spiriva. Continued on oral diuretics. Continued on Mucinex. Lovenox for DVT prophylaxis. Remains on ceftriaxone. Procalcitonin was negative at 0.20. White count 17.1. Hemoglobin 10.3. Platelets 293. Sodium 137. Potassium 5.0. Bicarb 27. BUN 27. Creatinine 0.85. Glucose 167. The patient is seen today January 15, 2025 in follow-up on the selective care unit. She is sitting up in bed. Awake and alert in no acute distress. States she is breathing better today compared to yesterday. She remains on Airvo high flow oxygen at 40 L and 60% FiO2. She is continued on DuoNeb inhalations, Symbicort, Solu-Medrol. Remains on oral diuretics. Lovenox for DVT prophylaxis. Glucose 209. White count 12.8. Hemoglobin 10.3. Platelets 294. Sodium 137. Potassium 4.2. Bicarb 27. BUN 29. Creatinine 0.82. Chest x-ray shows no significant change in the interstitial markings suggestive of COPD and interstitial scarring. CHF not excluded. The patient is seen today January 16, 2025 in follow-up on the selective care unit. She is awake and alert in no acute distress. Sitting up in bed. Feeling better. Maintaining O2 saturations in the 90s on Airvo high flow oxygen at 40 L and 40% FiO2. She is continued on DuoNeb inhalations, Symbicort, Solu-Medrol. Remains on oral diuretics. Lovenox for DVT prophylaxis. Blood culture reveals no growth. White count 13.8. Hemoglobin 10.9. Platelets 327. Sodium 135. Potassium 4.0. Bicarb 26. BUN 30. Creatinine 0.87. Glucose 157. Objective - Vital Signs Vital signs: Vital Signs Temp 98.5 F 01/16/25 08:45 Pulse 86 01/16/25 09:57 Resp 20 01/16/25 08:45 BP 105/70 01/16/25 08:45 Pulse Ox 92 L 01/16/25 11:25 FiO2 40 01/16/25 10:03 Intake & Output 01/15/25 01/16/25 01/16/25 18:59 06:59 18:59 Intake Total 1020 246 Output Total 1700 2 Balance -680 -2 246 Weight 62.2 kg Intake: IV 10 Invasive Line 2 10 Oral 1020 236 Output: Urine 1700 Stool 2 Other: Voiding Method Bedside Commode Bedside Commode Bedside Commode # Voids 2 # Bowel Movements 1 - Exam GENERAL EXAM: Alert, 74-year-old female, sitting up in bed, on Airvo high flow oxygen at 40 L and 40% FiO2, in no apparent distress. HEAD: Normocephalic. EYES: Normal reaction of pupils, equal size. NOSE: Clear with pink turbinates. THROAT: No erythema or exudates. NECK: No masses, no JVD. CHEST: No chest wall deformity. LUNGS: Equal air entry with few scattered rhonchi. CVS: S1 and S2 normal with no audible murmur, regular rhythm. ABDOMEN: No hepatosplenomegaly, normal bowel sounds, no guarding or rigidity. SPINE: No scoliosis or deformity SKIN: No rashes CENTRAL NERVOUS SYSTEM: No focal deficits, tone is normal in all 4 extremities. EXTREMITIES: There is no peripheral edema. No clubbing, no cyanosis. Peripheral pulses are intact. - Labs CBC & Chem 7: 01/16/25 05:25 01/16/25 05:25 Labs: Abnormal Lab Results - Last 24 Hours (Table) 01/15/25 01/15/25 01/16/25 Range/Units 16:57 20:14 05:25 WBC 13.83 H (4.50-10.00) 10*3/uL Hgb 10.9 L (12.0-15.0) g/dL Hct 35.7 L (37.2-46.3) % MCH 26.2 L (27.0-32.0) pg MCHC 30.5 L (32.0-37.0) g/dL Immature Gran # 0.14 H (0.00-0.04) 10*3/uL Neutrophils # 12.49 H (1.80-7.70) 10*3/uL Lymphocytes # 0.62 L (0.90-5.00) 10*3/uL Eosinophils # 0.00 L (0.04-0.35) 10*3/uL Sodium (137-145) mmol/L Chloride (98-107) mmol/L BUN (7-17) mg/dL Glucose (74-99) mg/dL POC Glucose (mg/dL) 196 H 210 H (70-110) mg/dL 01/16/25 01/16/25 01/16/25 Range/Units 05:25 05:59 11:53 WBC (4.50-10.00) 10*3/uL Hgb (12.0-15.0) g/dL Hct (37.2-46.3) % MCH (27.0-32.0) pg MCHC (32.0-37.0) g/dL Immature Gran # (0.00-0.04) 10*3/uL Neutrophils # (1.80-7.70) 10*3/uL Lymphocytes # (0.90-5.00) 10*3/uL Eosinophils # (0.04-0.35) 10*3/uL Sodium 135 L (137-145) mmol/L Chloride 97 L (98-107) mmol/L BUN 30 H (7-17) mg/dL Glucose 157 H (74-99) mg/dL POC Glucose (mg/dL) 180 H 131 H (70-110) mg/dL Assessment and Plan Assessment: Acute on chronic hypoxemic respiratory failure secondary to an acute exacerbation of diastolic congestive heart failure, currently requiring Airvo 40 L and 60%, chest x-ray showing cardiomegaly, pulmonary vascular congestion, increased interstitial markings bilaterally, greater on the left. NT proBNP 18,500 Acute COPD exacerbation. Procalcitonin negative Pulmonary hypertension with RV dysfunction and cor pulmonale Bilateral lower extremity edema Acute leukocytosis Hypokalemia, replaced Elevated troponins, likely secondary to supply/demand mismatch COPD/emphysema Pulmonary hypertension, suspect group 3, echocardiogram from 08/07/2024 showed a preserved LV function, nevertheless, the patient had severe pulmonary hypertension. RV was severely dilated and estimated PA pressure was 67. She had also moderate TR. Did have a follow-up confirmatory right-sided heart catheterization with a mean pulmonary artery pressure of 47 mmHg and pulmonary capillary wedge pressure of 15 suggestive of pre-capillary pulmonary hypertension. Chronic hypoxemic respiratory failure, typically wears 4 to 5 L/min nasal cannula while at home History of nonobstructive coronary artery disease Infrarenal abdominal aortic aneurysm, 4.7 cm follows with vascular surgery outpatient Systemic hypertension History of hyperlipidemia Peripheral vascular disease and carotid artery stenosis Former tobacco smoker Anxiety/depression Plan: The patient was seen and evaluated Labs and medications reviewed Continue DuoNeb inhalations Continue Symbicort Lovenox for DVT prophylaxis Continued on oral diuretics Could be transitioned to nasal cannula Titrate down the FiO2 as tolerated Increase her activity as tolerated We will continue to follow I have personally seen and examined the patient, performed the documentation and the assessment and plan as written. Number of minutes spent on the visit: 10 Dictation was produced using [employer] and [employer] software. Please excuse any grammatical, word or spelling errors.
[2025-01-16 16:47] LABS: Glucose,Whole Blood 199 mg/dL (70-110)
[2025-01-16 20:00] LABS: Glucose,Whole Blood 258 mg/dL (70-110)
[2025-01-17] MEDS: ACETAMINOPHEN TAB 325 MG TAB PO PRN (03:26)
[2025-01-17 06:09] LABS: Glucose,Whole Blood 189 mg/dL (70-110)
[2025-01-17 06:28] LABS: Basophils # (A) 0.02 10*3/uL (0.00-0.10); Basophils % (A) 0.1 %; HCT 38.6 % (37.2-46.3); HGB 11.9 g/dL (12.0-15.0); Lymphocytes # (A) 0.69 10*3/uL (0.90-5.00); Lymphocytes % (A) 3.7 %; MCHC 30.8 g/dL (32.0-37.0); MCV 84.3 fL (80.0-97.0); Monocytes # (A) 0.66 10*3/uL (0.20-1.00); Monocytes % (A) 3.5 %; Neutrophils # (A) 17.24 10*3/uL (1.80-7.70); Neutrophils % (A) 91.3 %; Platelet Count 407 10*3/uL (140-440); RBC 4.58 10*6/uL (4.10-5.20); RDW 17.8 % (11.5-14.5); WBC 18.88 10*3/uL (4.50-10.00)
[2025-01-17 07:16] LABS: African American GFR (CKD) 72 (>60 ml/min/1.73 sqM); Anion Gap 12 mmol/L; Blood Urea Nitrogen 40 mg/dL (7-17); Calcium 10.1 mg/dL (8.4-10.2); Carbon Dioxide 26 mmol/L (22-30); Chloride 96 mmol/L (98-107); Glucose 173 mg/dL (74-99); Non-African American GFR(CKD) 62 (>60 ml/min/1.73 sqM); Sodium 134 mmol/L (137-145)
[2025-01-17 11:21] LABS: Glucose,Whole Blood 244 mg/dL (70-110)
--- NOTE | 2025-01-17 12:47 | P.PN ---
Subjective Progress Note Date: 01/17/25 74 year old F with PMH of COPD on 4L home O2, pulmonary hypertension, AAA presented to the ED for progressively worsening shortness of breath. Vitals on admission T 99.6, HR 107, RR 20, BP 109/66, O2 saturation of 90% on 15 L non rebreather. EKG showed sinus tachycardia with PVCs and incomplete RBBB rate of 106 and QTc of 380 ms CXR showed diffuse increased lung markings. Venous duplex neg for DVT. CTA chest showed no PE, SHELLI PNA, PAH with severe COPD changes and cardiomegaly. Labs on admission showed WBC 27.72, Hg 11.3, Hct 36.2, K 3, BUN 19, glu 130, Lactic acid 1.3, BNP 70055, Trop 0.04, 0.035, Procal < 0.2. COVID, RSV, Flu neg. Patient was admitted for acute on chronic hypoxic respiratory failure secondary to PNA and possible CHF. She was started on Lasix IV, Rocephin/Azithromycin, bronchodilators and SoluMedrol. Pulmonary and Cardiology was consulted. She diureised well with Lasix, eventually transitioned to PO. She completed a course of antibiotics for CAP. 01/17 Patient was seen and examined. She is on 6L NC saturating 89%. Feeling well, reports breathing back to baseline. CBC and BMP significant for WBC 18.88, Hg 11.9, Na 134, Cl 96, BUN 40, glu 173. General: non toxic, no distress, appears at stated age Derm: warm, dry Head: atraumatic, normocephalic, symmetric Eyes: EOMI, no lid lag, anicteric sclera Mouth: no lip lesion, mucus membranes moist Cardiovascular: S1S2 reg, no murmur Lungs: Decreased BS bilateral, no rhonchi, no rales , no accessory muscle use Ext: no gross muscle atrophy, no edema, no contractures Neuro: no focal neuro deficits Psych: Alert, oriented, appropriate affect Based on my assessment of this patient, this patient meets a high complexity level of care. Acute on chronic hypoxic respiratory failure currently on 6 L with home O2 of 4 L: DuoNeb QID scheduled + PRN. Symbicort 2 INH BID. Mucinex 1200 mg PO BID. Solumedrol 40 mg IV TID. Telemetry monitoring. Pulmonary on board. Acute exacerbation of COPD: Management as above. Acute exacerbation of diastolic CHF: Echo 07/2024 shows EF 55% with G1DD. Lasix 40 mg PO BID. Cardiology on board. Troponin elevation likely type II NSTEMI with history of CAD: ASA 81 mg PO QD. Lipitor 40 mg PO QD. Metoprolol 12.5 mg PO QD. Cardiology on board. Hyponatremia and prerenal azotemia likely due to forced diuresis Group 3 pulmonary hypertension: Sildenafil 20 mg PO TID. HTN: Metoprolol 12.5 mg PO QD. Depression: Sertraline 50 mg PO QD. AAA: Outpatient follow up for routine maintenance. CODE STATUS: FULL CODE DVT Prophylaxis: Lovenox SQ GI Prophylaxis: Protonix PO Designated medical POA if patient is not able to make medical decisions for themselves: Plans for discharge to [facility] when able to wean O2 to 4L NC. I have reviewed the following agricultural consultant notes: I have reviewed the results of the following tests: CBC, BMP. I have ordered the following tests: I have discussed the care of this patient with the following independent historian: I have independently interpreted the following test below: I have discussed the management of this patient with the following physician: Objective - Vital Signs Vital signs: Vital Signs Temp 98.4 F 01/17/25 09:10 Pulse 82 01/17/25 12:21 Resp 16 01/17/25 12:21 BP 105/64 01/17/25 12:21 Pulse Ox 89 L 01/17/25 12:21 FiO2 40 01/16/25 10:03 Intake & Output 01/16/25 01/17/25 01/17/25 18:59 06:59 18:59 Intake Total 596 25 250 Output Total 801 Balance 596 -776 250 Weight 60 kg Intake: IV 20 25 10 Invasive Line 2 20 10 Invasive Line 3 15 10 Oral 576 240 Output: Urine 800 Stool 1 Other: Voiding Method Bedside Commode Bedside Commode Bedside Commode # Voids 3 # Bowel Movements 1 - Labs CBC & Chem 7: 01/17/25 06:02 01/17/25 06:02 Labs: Abnormal Lab Results - Last 24 Hours (Table) 01/16/25 01/16/25 01/17/25 Range/Units 16:46 19:59 06:02 WBC 18.88 H (4.50-10.00) 10*3/uL Hgb 11.9 L (12.0-15.0) g/dL MCH 26.0 L (27.0-32.0) pg MCHC 30.8 L (32.0-37.0) g/dL Immature Gran # 0.27 H (0.00-0.04) 10*3/uL Neutrophils # 17.24 H (1.80-7.70) 10*3/uL Lymphocytes # 0.69 L (0.90-5.00) 10*3/uL Eosinophils # 0.00 L (0.04-0.35) 10*3/uL Sodium (137-145) mmol/L Chloride (98-107) mmol/L BUN (7-17) mg/dL Glucose (74-99) mg/dL POC Glucose (mg/dL) 199 H 258 H (70-110) mg/dL 01/17/25 01/17/25 01/17/25 Range/Units 06:02 06:06 11:19 WBC (4.50-10.00) 10*3/uL Hgb (12.0-15.0) g/dL MCH (27.0-32.0) pg MCHC (32.0-37.0) g/dL Immature Gran # (0.00-0.04) 10*3/uL Neutrophils # (1.80-7.70) 10*3/uL Lymphocytes # (0.90-5.00) 10*3/uL Eosinophils # (0.04-0.35) 10*3/uL Sodium 134 L (137-145) mmol/L Chloride 96 L (98-107) mmol/L BUN 40 H (7-17) mg/dL Glucose 173 H (74-99) mg/dL POC Glucose (mg/dL) 189 H 244 H (70-110) mg/dL Microbiology - Last 24 Hours (Table) 01/11/25 23:11 Blood Culture - Final Blood
[2025-01-17 16:24] LABS: Glucose,Whole Blood 228 mg/dL (70-110)
--- NOTE | 2025-01-17 19:23 | P.PN ---
Subjective Progress Note Date: 01/17/25 Patient is a 74-year-old female with past medical history significant for COPD, interstitial fibrosis, pulmonary hypertension suspected group 3, cor pulmonale, chronic hypoxemic respiratory failure. Echocardiogram from July, estimating normal LV function, mild mitral regurgitation, RVSP of 67 with RV dysfunction. Did have a left and right heart catheterization done August, with PA pressure of 63/39 mmHg, PCWP 15. PAH felt to be related to patient's chronic lung disease. Also, patient was found to have mild nonobstructive coronary disease. Of note, patient recently hospitalized Nov, 2024, she had a near syncopal event. Patient brought into the emergency department late last night by EMS, in a state of respiratory distress, placed on high flow cannula/Airvo. She is an ECF resident from [facility]. Chief complaint of acute on chronic shortness of breath starting yesterday morning. Intermittent improvement with breathing treatments. Workup in the ED including x-ray which was remarkable for cardiomegaly, pulmonary vascular congestion, and diffuse increased lung markings bilaterally, greater on the left. Labs including a CBC with a WBC count of 27.7, hemoglobin 11.3, platelets 343. CMP with a sodium 137, potassium 3, chloride 99, serum bicarb 26, BUN 19, creatinine 0.73, glucose 130. Lactic 1.3. LFTs unremarkable. EKG: Sinus tachycardia, rate 106 bpm, frequent PACs, incomplete RBBB pattern. Troponin 0.04. NT proBNP significantly elevated at 18,500. Did receive a 80 mg dose of Lasix earlier in the ED. Patient currently being evaluated in the ED. She is resting comfortably on Airvo 50 L and 75%. She is awake and alert without signs of CO2 narcosis. ABG done previously with a PaO2 of 68, pCO2 35, pH of 7.48. Tachypneic. Speaking in complete sentences. Patient states that her increased difficulty in breathing started approximately 24 hours ago. She has had increased swelling in her lower extremities, starting approximately 4 days ago. Denies missing any doses of her Lasix. Denies chest pain, heart palpitations, lightheadedness or syncopal events. She denies any URI-like symptoms. She has a chronic cough, which is mostly dry. Denies any purulent sputum production, hemoptysis, or chest pain. Denies any fevers or chills. Previously started on azithromycin and Rocephin in the ED, which are essentially empiric. Current vital signs: Temperature 99.6 F, heart rate 91 bpm, blood pressure 95/69 mmHg, tachypneic, SpO2 recorded as 94% on above-mentioned Airvo settings. The patient is seen today January 13, 2025 in follow-up on the selective care unit. She is currently sitting up in bed. Awake and alert in no acute distress. She is still requiring Airvo high flow oxygen at 45 L and 65% FiO2. She has been afebrile. Hemodynamically stable. Blood culture reveals no growth thus far. White count 19.7. Hemoglobin 10.8. Platelets 329. Sodium 141. Potassium 4.4. Bicarb 23. BUN 21. Creatinine 0.70. Glucose 146. Procalcitonin was negative at 0.20. She remains on DuoNeb ventilations, Symbicort, Solu-Medrol, Spiriva. Continued on IV diuretics. Lovenox for DVT prophylaxis. Remains on ceftriaxone. The patient is seen today January 14, 2025 in follow-up on the selective care unit. She is awake and alert in no acute distress. Breathing easier today compared to yesterday. Resting fairly comfortably in bed. She remains on Airvo high flow oxygen at 40 L and 60% FiO2. She remains on DuoNeb inhalations, Symbicort, Solu-Medrol, Spiriva. Continued on oral diuretics. Continued on Mucinex. Lovenox for DVT prophylaxis. Remains on ceftriaxone. Procalcitonin was negative at 0.20. White count 17.1. Hemoglobin 10.3. Platelets 293. Sodium 137. Potassium 5.0. Bicarb 27. BUN 27. Creatinine 0.85. Glucose 167. The patient is seen today January 15, 2025 in follow-up on the selective care unit. She is sitting up in bed. Awake and alert in no acute distress. States she is breathing better today compared to yesterday. She remains on Airvo high flow oxygen at 40 L and 60% FiO2. She is continued on DuoNeb inhalations, Symbicort, Solu-Medrol. Remains on oral diuretics. Lovenox for DVT prophylaxis. Glucose 209. White count 12.8. Hemoglobin 10.3. Platelets 294. Sodium 137. Potassium 4.2. Bicarb 27. BUN 29. Creatinine 0.82. Chest x-ray shows no significant change in the interstitial markings suggestive of COPD and interstitial scarring. CHF not excluded. The patient is seen today January 16, 2025 in follow-up on the selective care unit. She is awake and alert in no acute distress. Sitting up in bed. Feeling better. Maintaining O2 saturations in the 90s on Airvo high flow oxygen at 40 L and 40% FiO2. She is continued on DuoNeb inhalations, Symbicort, Solu-Medrol. Remains on oral diuretics. Lovenox for DVT prophylaxis. Blood culture reveals no growth. White count 13.8. Hemoglobin 10.9. Platelets 327. Sodium 135. Potassium 4.0. Bicarb 26. BUN 30. Creatinine 0.87. Glucose 157. 01/17/2025, the patient is being seen for a follow-up. She is resting comfortably in bed. Doing well. No specific complaints. The patient has multiple comorbidities in addition to chronic hypoxia as per the failure. She has COPD with severe pulm hypertension with RVSP of 67 and ongoing RV dysfunction. She has chronic WHO group 3 pulmonary hypertension. She also has some mild interstitial fibrosis. She comes in periodically for decompensated respiratory status with acute on top of chronic hypoxic respiratory failure. Currently she is feeling better. She is on oxygen at 5 L with a pulse ox of 88%. The CTA of the chest was done on 01/12/2025 showed no evidence of any pul monary embolism. There was cardiomegaly and finding consistent with pulmonary hypertension and severe COPD. Doppler of the lower extremity was also negative for DVT. The patient otherwise doing well. The white cell count is at 18.8 with a hemoglobin of 11.9 and a platelet count of 407. Sodium level is 134, BUN is 40 with a creatinine of 0.9. Chloride is at 96. The patient is currently on Symbicort, DuoNeb nebulizers [id number], Lovenox 40 mg subcu for DVT prophylaxis, Lasix 40 mg p.o. twice a day and IV Solu-Medrol 40 mg every 8 hours. She is also metoprolol XL 12.5 mg p.o. daily. She is on aspirin and Lipitor. Objective - Vital Signs Vital signs: Vital Signs Temp 98.4 F 01/17/25 09:10 Pulse 96 06/23/25 13:14 Resp 16 01/17/25 12:21 BP 105/64 01/17/25 12:21 Pulse Ox 91 L 01/17/25 13:09 FiO2 40 01/16/25 10:03 Intake & Output 01/16/25 01/17/25 01/17/25 18:59 06:59 18:59 Intake Total 596 25 490 Output Total 801 Balance 596 -776 490 Weight 60 kg Intake: IV 20 25 10 Invasive Line 2 20 10 Invasive Line 3 15 10 Oral 576 480 Output: Urine 800 Stool 1 Other: Voiding Method Bedside Commode Bedside Commode Bedside Commode # Voids 3 # Bowel Movements 1 - Exam GENERAL EXAM: Alert, 74-year-old female, sitting up in bed, off Airvo and the patient is currently on 5 L of oxygen by nasal cannula HEAD: Normocephalic. EYES: Normal reaction of pupils, equal size. NOSE: Clear with pink turbinates. THROAT: No erythema or exudates. NECK: No masses, no JVD. CHEST: No chest wall deformity. LUNGS: Equal air entry with few scattered rhonchi. CVS: S1 and S2 normal with no audible murmur, regular rhythm. Obvious accentuation of the second heart sound ABDOMEN: No hepatosplenomegaly, normal bowel sounds, no guarding or rigidity. SPINE: No scoliosis or deformity SKIN: No rashes CENTRAL NERVOUS SYSTEM: No focal deficits, tone is normal in all 4 extremities. EXTREMITIES: There is no peripheral edema. No clubbing, no cyanosis. Peripheral pulses are intact. - Labs CBC & Chem 7: 01/17/25 06:02 01/17/25 06:02 Labs: Abnormal Lab Results - Last 24 Hours (Table) 01/16/25 01/16/25 01/17/25 Range/Units 16:46 19:59 06:02 WBC 18.88 H (4.50-10.00) 10*3/uL Hgb 11.9 L (12.0-15.0) g/dL MCH 26.0 L (27.0-32.0) pg MCHC 30.8 L (32.0-37.0) g/dL Immature Gran # 0.27 H (0.00-0.04) 10*3/uL Neutrophils # 17.24 H (1.80-7.70) 10*3/uL Lymphocytes # 0.69 L (0.90-5.00) 10*3/uL Eosinophils # 0.00 L (0.04-0.35) 10*3/uL Sodium (137-145) mmol/L Chloride (98-107) mmol/L BUN (7-17) mg/dL Glucose (74-99) mg/dL POC Glucose (mg/dL) 199 H 258 H (70-110) mg/dL 01/17/25 01/17/25 01/17/25 Range/Units 06:02 06:06 11:19 WBC (4.50-10.00) 10*3/uL Hgb (12.0-15.0) g/dL MCH (27.0-32.0) pg MCHC (32.0-37.0) g/dL Immature Gran # (0.00-0.04) 10*3/uL Neutrophils # (1.80-7.70) 10*3/uL Lymphocytes # (0.90-5.00) 10*3/uL Eosinophils # (0.04-0.35) 10*3/uL Sodium 134 L (137-145) mmol/L Chloride 96 L (98-107) mmol/L BUN 40 H (7-17) mg/dL Glucose 173 H (74-99) mg/dL POC Glucose (mg/dL) 189 H 244 H (70-110) mg/dL Microbiology - Last 24 Hours (Table) 01/11/25 23:11 Blood Culture - Final Blood Assessment and Plan Plan: Acute on chronic hypoxemic respiratory failure secondary to an acute exacerbation of diastolic congestive heart failure, currently off Airvo on 5 L of oxygen by nasal cannula, chest x-ray showing cardiomegaly, pulmonary vascular congestion, increased interstitial markings bilaterally, greater on the left. NT proBNP 18,500. CTA of the chest showed no evidence of any pulmonary embolisms. Consistent with pulm hypertension COPD and some mild interstitial scarring. COPD, with possibly component of exacerbation. No evidence of pneumonia. Procalcitonin level is not elevated. Pulmonary hypertension with RV dysfunction and cor pulmonale, WHO group 3 pulmonary hypertension Bilateral lower extremity edema, improving Acute leukocytosis Hypokalemia, replaced Elevated troponins, likely secondary to supply/demand mismatch COPD/emphysema Pulmonary hypertension, suspect group 3, echocardiogram from 08/07/2024 showed a preserved LV function, nevertheless, the patient had severe pulmonary hypertension. RV was severely dilated and estimated PA pressure was 67. She had also moderate TR. Did have a follow-up confirmatory right-sided heart catheterization with a mean pulmonary artery pressure of 47 mmHg and pulmonary capillary wedge pressure of 15 suggestive of pre-capillary pulmonary hypertension. Chronic hypoxemic respiratory failure, typically wears 4 to 5 L/min nasal cannula while at home History of nonobstructive coronary artery disease Infrarenal abdominal aortic aneurysm, 4.7 cm follows with vascular surgery o utpatient Systemic hypertension History of hyperlipidemia Peripheral vascular disease and carotid artery stenosis Former tobacco smoker Anxiety/depression Plan: The patient is stable for now. Will wean down the FiO2 as tolerated to maintain saturation above 90%. Typically the patient is requiring 4 to 5 L of O2 nasal cannula on outpatient basis. Continue DuoNeb inhalations Continue Symbicort Lovenox for DVT prophylaxis Continued on oral diuretics Will switch the patient to prednisone burst taper as of tomorrow Increase her activity as tolerated We will continue to follow
[2025-01-17 20:27] LABS: Glucose,Whole Blood 251 mg/dL (70-110)
[2025-01-18 05:10] VITALS: RESP 16
[2025-01-18 06:12] LABS: Glucose,Whole Blood 187 mg/dL (70-110)
[2025-01-18 11:18] LABS: Glucose,Whole Blood 160 mg/dL (70-110)
[2025-01-18 11:57] VITALS: BP 111/74; PULSE 87; TEMP 98.4
--- NOTE | 2025-01-18 13:30 | P.PN ---
Subjective Progress Note Date: 01/18/25 74 year old F with PMH of COPD on 4L home O2, pulmonary hypertension, AAA presented to the ED for progressively worsening shortness of breath. Vitals on admission T 99.6, HR 107, RR 20, BP 109/66, O2 saturation of 90% on 15 L non rebreather. EKG showed sinus tachycardia with PVCs and incomplete RBBB rate of 106 and QTc of 380 ms CXR showed diffuse increased lung markings. Venous duplex neg for DVT. CTA chest showed no PE, SHELLI PNA, PAH with severe COPD changes and cardiomegaly. Labs on admission showed WBC 27.72, Hg 11.3, Hct 36.2, K 3, BUN 19, glu 130, Lactic acid 1.3, BNP 51569, Trop 0.04, 0.035, Procal < 0.2. COVID, RSV, Flu neg. Patient was admitted for acute on chronic hypoxic respiratory failure secondary to PNA and possible CHF. She was started on Lasix IV, Rocephin/Azithromycin, bronchodilators and SoluMedrol. Pulmonary and Cardiology was consulted. She diureised well with Lasix, eventually transitioned to PO. She completed a course of antibiotics for CAP. 01/17 Patient was seen and examined. She is on 6L NC saturating 89%. Feeling well, reports breathing back to baseline. CBC and BMP significant for WBC 18.88, Hg 11.9, Na 134, Cl 96, BUN 40, glu 173. 01/18 Patient was seen and examined. She is on 5L NC saturating low 80s. Feeling well, reports breathing back to baseline. General: non toxic, no distress, appears at stated age Derm: warm, dry Head: atraumatic, normocephalic, symmetric Eyes: EOMI, no lid lag, anicteric sclera Mouth: no lip lesion, mucus membranes moist Cardiovascular: S1S2 reg, no murmur Lungs: Decreased BS bilateral, no rhonchi, no rales , no accessory muscle use Ext: no gross muscle atrophy, no edema, no contractures Neuro: no focal neuro deficits Psych: Alert, oriented, appropriate affect Based on my assessment of this patient, this patient meets a high complexity level of care. Acute on chronic hypoxic respiratory failure currently on 6 L with home O2 of 4 L: DuoNeb QID scheduled + PRN. Symbicort 2 INH BID. Mucinex 1200 mg PO BID. So lumedrol 40 mg IV TID. Telemetry monitoring. Wean O2 to baseline of 4L NC. Pulmonary on board. Acute exacerbation of COPD: Management as above. Acute exacerbation of diastolic CHF: Echo 07/2024 shows EF 55% with G1DD. Lasix 40 mg PO BID. Cardiology on board. Troponin elevation likely type II NSTEMI with history of CAD: ASA 81 mg PO QD. Lipitor 40 mg PO QD. Metoprolol 12.5 mg PO QD. Cardiology on board. Hyponatremia and prerenal azotemia likely due to forced diuresis Group 3 pulmonary hypertension: Sildenafil 20 mg PO TID. HTN: Metoprolol 12.5 mg PO QD. Depression: Sertraline 50 mg PO QD. AAA: Outpatient follow up for routine maintenance. CODE STATUS: FULL CODE DVT Prophylaxis: Lovenox SQ GI Prophylaxis: Protonix PO Designated medical POA if patient is not able to make medical decisions for themselves: Plans for discharge to [facility] when able to wean O2 to 4L NC. I have reviewed the following regulatory consultant notes: Pulmonary. I have reviewed the results of the following tests: I have ordered the following tests: I have discussed the care of this patient with the following independent historian: STEPHANIE. I have independently interpreted the following test below: I have discussed the management of this patient with the following physician: Objective - Vital Signs Vital signs: Vital Signs Temp 98.4 F 01/18/25 11:55 Pulse 87 01/18/25 11:55 Resp 16 01/18/25 11:55 BP 111/74 01/18/25 11:55 Pulse Ox 87 L 01/18/25 11:55 FiO2 40 01/16/25 10:03 Intake & Output 01/17/25 01/18/25 01/18/25 18:59 06:59 18:59 Intake Total 500 250 240 Output Total 1202 Balance 500 -952 240 Weight 59.6 kg Intake: IV 20 10 Invasive Line 3 20 10 Oral 480 240 240 Output: Urine 1200 Stool 2 Other: Voiding Method Bedside Commode Bedside Commode # Voids 1 # Bowel Movements 1 - Labs CBC & Chem 7: 01/17/25 06:02 01/17/25 06:02 Labs: Abnormal Lab Results - Last 24 Hours (Table) 01/17/25 01/17/2525 Range/Units 16:23 20:26 06:11 POC Glucose (mg/dL) 228 H 251 H 187 H (70-110) mg/dL 01/18/25 Range/Units 11:17 POC Glucose (mg/dL) 160 H (70-110) mg/dL
--- NOTE | 2025-01-18 14:01 | P.DS ---
Providers Date of admission: 01/12/25 02:00 Expected date of discharge: 01/18/25 Attending physician: Trell Ramírez MD Consults: 01/12/25 02:00 Consult Physician Routine Consulting Provider: Az Stover Consult Reason/Comments: COPD/ Pulm HTN Do you want consulting provider notified?: Yes, Notify in am Primary care physician: Nolan Dsouza [facility] Course: 74 year old F with PMH of COPD on 4L home O2, pulmonary hypertension, AAA presented to the ED for progressively worsening shortness of breath. Vitals on admission T 99.6, HR 107, RR 20, BP 109/66, O2 saturation of 90% on 15 L non rebreather. EKG showed sinus tachycardia with PVCs and incomplete RBBB rate of 106 and QTc of 380 ms CXR showed diffuse increased lung markings. Venous duplex neg for DVT. CTA chest showed no PE, SHELLI PNA, PAH with severe COPD changes and cardiomegaly. Labs on admission showed WBC 27.72, Hg 11.3, Hct 36.2, K 3, BUN 19, glu 130, Lactic acid 1.3, BNP 86637, Trop 0.04, 0.035, Procal < 0.2. COVID, RSV, Flu neg. Patient was admitted for acute on chronic hypoxic respiratory failure secondary to PNA and possible CHF. She was started on Lasix IV, Rocephin/Azithromycin, bronchodilators and SoluMedrol. Pulmonary and Cardiology was consulted. She diureised well with Lasix, eventually transitioned to PO. She completed a course of antibiotics for CAP. 01/17 Patient was seen and examined. She is on 6L NC saturating 89%. Feeling well, reports breathing back to baseline. CBC and BMP significant for WBC 18.88, Hg 11.9, Na 134, Cl 96, BUN 40, glu 173. 01/18 Patient was seen and examined. She is on 5L NC saturating low 80s. Feeling well, reports breathing back to baseline. Discharge Plan: Prednisone taper (40 mg PO QD x 3 days, 30 mg PO QD x 3 days, 20 mg PO QD x 3 days, 10 mg PO QD thereafter). Restart home medications (Lasix increased). Follow up with PCP within 1-2 days of discharge and Pulmonary within 1 week of discharge. Outpatient routine surveillance of AAA with PCP. General: non toxic, no distress, appears at stated age Derm: warm, dry Head: atraumatic, normocephalic, symmetric Eyes: EOMI, no lid lag, anicteric sclera Mouth: no lip lesion, mucus membranes moist Cardiovascular: S1S2 reg, no murmur Lungs: Decreased BS bilateral, no rhonchi, no rales , no accessory muscle use Ext: no gross muscle atrophy, no edema, no contractures Neuro: no focal neuro deficits Psych: Alert, oriented, appropriate affect Discharge Diagnosis: Acute on chronic hypoxic respiratory failure Acute exacerbation of COPD Acute exacerbation of diastolic CHF Troponin elevation likely type II NSTEMI with history of CAD Hyponatremia and prerenal azotemia likely due to forced diuresis Group 3 pulmonary hypertension HTN Depression AAA This complex discharge took 35 minutes to complete. Patient Condition at Discharge: Stable Plan - Discharge Summary Discharge Rx Participant: Yes New Discharge Prescriptions: New Furosemide [Lasix] 40 mg PO BID@0900,1600 tab predniSONE See Taper PO DIRECTED #30 tab Ipratropium-Albuterol Nebulize [Duoneb 0.5 mg-3 mg/3 ml Soln] 3 ml INHALATION RT-QID PRN each PRN Reason: Shortness Of Breath Or Wheezing Continue Atorvastatin [Lipitor] 40 mg PO HS Ergocalciferol [Vitamin D2 (1250 Mcg = 19361 Iu)] 1,250 mcg PO MO Ipratropium/Albuter 20-100Mcg [Combivent Respimat 20-100Mcg Inhaler] 1 puff INHALATION RT-QID Sertraline [Zoloft] 50 mg PO DAILY guaiFENesin [Mucinex] 1,200 mg PO BID #30 tab Metoprolol Succinate (ER) [Toprol XL] 12.5 mg PO DAILY #60 tab Albuterol Sulfate [Ventolin HFA] 2 puff INHALATION RT-Q4H PRN PRN Reason: Shortness Of Breath Fludrocortisone [Florinef] 0.1 mg PO DAILY #0 tab Aspirin 81 mg PO DAILY Omeprazole 40 mg PO DAILY Acetaminophen Tab [Tylenol] 650 mg PO Q6HR PRN PRN Reason: Fever And/ Or Pain predniSONE [Deltasone] 10 mg PO DAILY Cetirizine HCl [Zyrtec] 10 mg PO DAILY Fluticasone/Umeclidin/Vilanter [Trelegy Ellipta 200-62.5-25] 1 puff INHALATION RT-DAILY Ipratropium-Albuterol Nebulize [Duoneb 0.5 mg-3 mg/3 ml Soln] 3 ml INHALATION RT-QID PRN PRN Reason: Shortness Of Breath Dicyclomine [Bentyl] 10 mg PO TID Sildenafil Citrate 20 mg PO TID Discontinued Furosemide [Lasix] 40 mg PO DAILY Discharge Medication List Atorvastatin [Lipitor] 40 mg PO HS 08/06/24 [History] Cetirizine HCl [Zyrtec] 10 mg PO DAILY 08/06/24 [History] Ergocalciferol [Vitamin D2 (1250 Mcg = 80664 Iu)] 1,250 mcg PO MO 08/06/24 [History] Fluticasone/Umeclidin/Vilanter [Trelegy Ellipta 200-62.5-25] 1 puff INHALATION RT-DAILY 08/06/24 [History] Ipratropium-Albuterol Nebulize [Duoneb 0.5 mg-3 mg/3 ml Soln] 3 ml INHALATION RT-QID PRN 08/06/24 [History] Ipratropium/Albuter 20-100Mcg [Combivent Respimat 20-100Mcg Inhaler] 1 puff INHALATION RT-QID 08/06/24 [History] Sertraline [Zoloft] 50 mg PO DAILY 08/06/24 [History] guaiFENesin [Mucinex] 1,200 mg PO BID #30 tab 08/13/24 [Rx] Metoprolol Succinate (ER) [Toprol XL] 12.5 mg PO DAILY #60 tab 09/25/24 [Rx] Albuterol Sulfate [Ventolin HFA] 2 puff INHALATION RT-Q4H PRN 10/24/24 [History] Fludrocortisone [Florinef] 0.1 mg PO DAILY #0 tab 12/17/24 [Rx] Acetaminophen Tab [Tylenol] 650 mg PO Q6HR PRN 01/12/25 [History] Aspirin 81 mg PO DAILY 01/12/25 [History] Dicyclomine [Bentyl] 10 mg PO TID 01/12/25 [History] Omeprazole 40 mg PO DAILY 01/12/25 [History] Sildenafil Citrate 20 mg PO TID 01/12/25 [History] predniSONE [Deltasone] 10 mg PO DAILY 01/12/25 [History] Furosemide [Lasix] 40 mg PO BID@0900,1600 tab 01/18/25 [Rx] Ipratropium-Albuterol Nebulize [Duoneb 0.5 mg-3 mg/3 ml Soln] 3 ml INHALATION RT-QID PRN each 01/18/25 [Rx] predniSONE See Taper PO DIRECTED #30 tab 01/18/25 [Rx] Follow up Appointment(s)/Referral(s): Nolan Chopra MD [Primary Care Provider] - 1-2 days Pietro Colunga MD [STAFF PHYSICIAN] - 1 Week Discharge Disposition: TRANSFER TO SNF/ECF
--- NOTE | 2025-01-18 22:56 | P.PN ---
Subjective Progress Note Date: 01/18/25 Patient is a 74-year-old female with past medical history significant for COPD, interstitial fibrosis, pulmonary hypertension suspected group 3, cor pulmonale, chronic hypoxemic respiratory failure. Echocardiogram from July, estimating normal LV function, mild mitral regurgitation, RVSP of 67 with RV dysfunction. Did have a left and right heart catheterization done August, with PA pressure of 63/39 mmHg, PCWP 15. PAH felt to be related to patient's chronic lung disease. Also, patient was found to have mild nonobstructive coronary disease. Of note, patient recently hospitalized Nov, 2024, she had a near syncopal event. Patient brought into the emergency department late last night by EMS, in a state of respiratory distress, placed on high flow cannula/Airvo. She is an ECF resident from [facility]. Chief complaint of acute on chronic shortness of breath starting yesterday morning. Intermittent improvement with breathing treatments. Workup in the ED including x-ray which was remarkable for cardiomegaly, pulmonary vascular congestion, and diffuse increased lung markings bilaterally, greater on the left. Labs including a CBC with a WBC count of 27.7, hemoglobin 11.3, platelets 343. CMP with a sodium 137, potassium 3, chloride 99, serum bicarb 26, BUN 19, creatinine 0.73, glucose 130. Lactic 1.3. LFTs unremarkable. EKG: Sinus tachycardia, rate 106 bpm, frequent PACs, incomplete RBBB pattern. Troponin 0.04. NT proBNP significantly elevated at 18,500. Did receive a 80 mg dose of Lasix earlier in the ED. Patient currently being evaluated in the ED. She is resting comfortably on Airvo 50 L and 75%. She is awake and alert without signs of CO2 narcosis. ABG done previously with a PaO2 of 68, pCO2 35, pH of 7.48. Tachypneic. Speaking in complete sentences. Patient states that her increased difficulty in breathing started approximately 24 hours ago. She has had increased swelling in her lower extremities, starting approximately 4 days ago. Denies missing any doses of her Lasix. Denies chest pain, heart palpitations, lightheadedness or syncopal events. She denies any URI-like symptoms. She has a chronic cough, which is mostly dry. Denies any purulent sputum production, hemoptysis, or chest pain. Denies any fevers or chills. Previously started on azithromycin and Rocephin in the ED, which are essentially empiric. Current vital signs: Temperature 99.6 F, heart rate 91 bpm, blood pressure 95/69 mmHg, tachypneic, SpO2 recorded as 94% on above-mentioned Airvo settings. The patient is seen today January 13, 2025 in follow-up on the selective care unit. She is currently sitting up in bed. Awake and alert in no acute distress. She is still requiring Airvo high flow oxygen at 45 L and 65% FiO2. She has been afebrile. Hemodynamically stable. Blood culture reveals no growth thus far. White count 19.7. Hemoglobin 10.8. Platelets 329. Sodium 141. Potassium 4.4. Bicarb 23. BUN 21. Creatinine 0.70. Glucose 146. Procalcitonin was negative at 0.20. She remains on DuoNeb ventilations, Symbicort, Solu-Medrol, Spiriva. Continued on IV diuretics. Lovenox for DVT prophylaxis. Remains on ceftriaxone. The patient is seen today January 14, 2025 in follow-up on the selective care unit. She is awake and alert in no acute distress. Breathing easier today compared to yesterday. Resting fairly comfortably in bed. She remains on Airvo high flow oxygen at 40 L and 60% FiO2. She remains on DuoNeb inhalations, Symbicort, Solu-Medrol, Spiriva. Continued on oral diuretics. Continued on Mucinex. Lovenox for DVT prophylaxis. Remains on ceftriaxone. Procalcitonin was negative at 0.20. White count 17.1. Hemoglobin 10.3. Platelets 293. Sodium 137. Potassium 5.0. Bicarb 27. BUN 27. Creatinine 0.85. Glucose 167. The patient is seen today January 15, 2025 in follow-up on the selective care unit. She is sitting up in bed. Awake and alert in no acute distress. States she is breathing better today compared to yesterday. She remains on Airvo high flow oxygen at 40 L and 60% FiO2. She is continued on DuoNeb inhalations, Symbicort, Solu-Medrol. Remains on oral diuretics. Lovenox for DVT prophylaxis. Glucose 209. White count 12.8. Hemoglobin 10.3. Platelets 294. Sodium 137. Potassium 4.2. Bicarb 27. BUN 29. Creatinine 0.82. Chest x-ray shows no significant change in the interstitial markings suggestive of COPD and interstitial scarring. CHF not excluded. The patient is seen today January 16, 2025 in follow-up on the selective care unit. She is awake and alert in no acute distress. Sitting up in bed. Feeling better. Maintaining O2 saturations in the 90s on Airvo high flow oxygen at 40 L and 40% FiO2. She is continued on DuoNeb inhalations, Symbicort, Solu-Medrol. Remains on oral diuretics. Lovenox for DVT prophylaxis. Blood culture reveals no growth. White count 13.8. Hemoglobin 10.9. Platelets 327. Sodium 135. Potassium 4.0. Bicarb 26. BUN 30. Creatinine 0.87. Glucose 157. 01/17/2025, the patient is being seen for a follow-up. She is resting comfortably in bed. Doing well. No specific complaints. The patient has multiple comorbidities in addition to chronic hypoxia as per the failure. She has COPD with severe pulm hypertension with RVSP of 67 and ongoing RV dysfunction. She has chronic WHO group 3 pulmonary hypertension. She also has some mild interstitial fibrosis. She comes in periodically for decompensated respiratory status with acute on top of chronic hypoxic respiratory failure. Currently she is feeling better. She is on oxygen at 5 L with a pulse ox of 88%. The CTA of the chest was done on 01/12/2025 showed no evidence of any pul monary embolism. There was cardiomegaly and finding consistent with pulmonary hypertension and severe COPD. Doppler of the lower extremity was also negative for DVT. The patient otherwise doing well. The white cell count is at 18.8 with a hemoglobin of 11.9 and a platelet count of 407. Sodium level is 134, BUN is 40 with a creatinine of 0.9. Chloride is at 96. The patient is currently on Symbicort, DuoNeb nebulizers [id number], Lovenox 40 mg subcu for DVT prophylaxis, Lasix 40 mg p.o. twice a day and IV Solu-Medrol 40 mg every 8 hours. She is also metoprolol XL 12.5 mg p.o. daily. She is on aspirin and Lipitor. On 01/18/2025, clinically stable and the patient's oxygenation remained stable at 4 L although she continues to have some exertional desaturation. She has advanced COPD with pulmonary fibrosis and the patient has chronic hypoxic story failure with severe pulmonary hypertension and right-sided heart failure. No new complaints otherwise for now. No new electrolytes from today. Yesterday's labs were noted. CAT scan of the chest was noted. Objective - Vital Signs Vital signs: Vital Signs Temp 98.4 F 01/18/25 11:55 Pulse 87 01/18/25 11:55 Resp 16 01/18/25 11:55 BP 111/74 01/18/25 11:55 Pulse Ox 87 L 01/18/25 11:55 FiO2 40 01/16/25 10:03 Intake & Output 01/17/25 01/18/25 01/18/25 18:59 06:59 18:59 Intake Total 500 250 240 Output Total 1202 Balance 500 -952 240 Weight 59.6 kg Intake: IV 20 10 Invasive Line 3 20 10 Oral 480 240 240 Output: Urine 1200 Stool 2 Other: Voiding Method Bedside Commode Bedside Commode # Voids 1 # Bowel Movements 1 - Exam GENERAL EXAM: Alert, 74-year-old female, sitting up in bed, off Airvo and the patient is currently on 5 L of oxygen by nasal cannula HEAD: Normocephalic. EYES: Normal reaction of pupils, equal size. NOSE: Clear with pink turbinates. THROAT: No erythema or exudates. NECK: No masses, no JVD. CHEST: No chest wall deformity. LUNGS: Equal air entry with few scattered rhonchi. CVS: S1 and S2 normal with no audible murmur, regular rhythm. Obvious accentuation of the second heart sound ABDOMEN: No hepatosplenomegaly, normal bowel sounds, no guarding or rigidity. SPINE: No scoliosis or deformity SKIN: No rashes CENTRAL NERVOUS SYSTEM: No focal deficits, tone is normal in all 4 extremities. EXTREMITIES: There is no peripheral edema. No clubbing, no cyanosis. Peripheral pulses are intact. - Labs CBC & Chem 7: 01/17/25 06:02 01/17/25 06:02 Labs: Abnormal Lab Results - Last 24 Hours (Table) 01/17/25 01/17/25 01/18/25 Range/Units 16:23 20:26 06:11 POC Glucose (mg/dL) 228 H 251 H 187 H (70-110) mg/dL 01/18/25 Range/Units 11:17 POC Glucose (mg/dL) 160 H (70-110) mg/dL Assessment and Plan Plan: Acute on chronic hypoxemic respiratory failure secondary to an acute exacerbation of diastolic congestive heart failure, currently off Airvo on 5 L of oxygen by nasal cannula, chest x-ray showing cardiomegaly, pulmonary vascular congestion, increased interstitial markings bilaterally, greater on the left. NT proBNP 18,500. CTA of the chest showed no evidence of any pulmonary embolisms. Consistent with pulm hypertension COPD and some mild interstitial scarring. COPD, with possibly component of exacerbation. No evidence of pneumonia. Procalcitonin level is not elevated. Pulmonary hypertension with RV dysfunction and cor pulmonale, WHO group 3 pulmonary hypertension Bilateral lower extremity edema, improving Acute leukocytosis Hypokalemia, replaced Elevated troponins, likely secondary to supply/demand mismatch COPD/emphysema Pulmonary hypertension, suspect group 3, echocardiogram from 08/07/2024 showed a preserved LV function, nevertheless, the patient had severe pulmonary hypertension. RV was severely dilated and estimated PA pressure was 67. She had also moderate TR. Did have a follow-up confirmatory right-sided heart cat heterization with a mean pulmonary artery pressure of 47 mmHg and pulmonary capillary wedge pressure of 15 suggestive of pre-capillary pulmonary hypertension. Chronic hypoxemic respiratory failure, typically wears 4 to 5 L/min nasal cannula while at home History of nonobstructive coronary artery disease Infrarenal abdominal aortic aneurysm, 4.7 cm follows with vascular surgery outpatient Systemic hypertension History of hyperlipidemia Peripheral vascular disease and carotid artery stenosis Former tobacco smoker Anxiety/depression Plan: The patient is stable for now. Will wean down the FiO2 as tolerated to maintain saturation above 90%. Typically the patient is requiring 4 to 5 L of O2 nasal cannula on outpatient basis. Continue DuoNeb inhalations Continue Symbicort Lovenox for DVT prophylaxis Continued on oral diuretics, Lasix 40 mg p.o. twice daily. prednisone burst taper as of tomorrow Increase her activity as tolerated Okay to go home to be followed up on outpatient basis
--- NOTE | 2025-01-24 17:00 | CDI ---
Documentation Clarification Form Date: 01/24/2025 From: Clara [email or web address] Email: [email or web address] Admit Date: 01/12/2025 02:00:00 AM Patient Name: Sally Richmond Visit Number: [id number] Discharge Date: 01/18/2025 03:25:00 PM ATTENTION: The Clinical Documentation Specialists (CDI) and [facility] Coding Staff appreciate your assistance in clarifying documentation. Please respond to the clarification below the line at the bottom and electronically sign. The CDI & [facility] Coding staff will review the response and follow-up if needed. Please note: Queries are made part of the Legal Health Record. If you have any questions, please contact the author of this message via ITS. Dr. José Miguel Foster, Troponin elevation likely type II NSTEMI is documented in the Discharge Summary Report - which may lack sufficient clinical evidence/support in the medical record. Additional clarification is requested. Patient history/risk factors: 74-year-old female presented to [facility] for evaluation due to shortness of breath. PMH: Mild non-obstructing coronary artery disease, chronic diastolic heart failure, chronic hypoxic respiratory failure, GERD, hypertension, hyperlipidemia, severe pulmonary hypertension, abdominal aortic aneurysm, remote tobacco use Clinical indicators: Troponin Trend: (01/11/2025) 0.040 --> (01/12/2025) 0.035 --> No Additional Results Noted Troponin Level (Previous Visit/Historical Value 12/11/2024): 0.057 EKG (01/11/2025): Sinus tachycardia with short PA interval with frequent supraventricular premature complexes. Left axis deviation. Incomplete right bundle branch block. Inferior myocardial infarction, probably old. Abnormal ECG. Unconfirmed report. Cardiology Progress Note (01/14/2025): o EKG: Sinus rhythm 106bpm with PACs o Chest x-ray: CHF o Elevated troponins secondary to acute hypoxic respiratory failure o Mild non-obstructive pulmonary hypertension o Chronic for pulmonale Internal Medicine Progress Note (01/16/2025): Elevated troponin, likely secondary to demand ischemia resulting from hypoxia Treatment: Cardiology Consultation Telemetry Monitoring Troponin Trend x 2 Aspirin 81mg Oral Daily After work up and study, please which diagnosis is most appropriate? [ ] Type II ND ruled out. Elevated troponin due to acute non-ischemic myocardial injury, present on admission. [ x ] Type II ND ruled out. Elevated troponin due to chronic non-ischemic myocardial injury, present on admission. [ ] Type II ND ruled out. No additional diagnosis. [ ] Type II ND secondary to hypoxia is a valid diagnosis as evidenced by the following: [ ] Other, please specify [ ] Unable to determine Reference: [employer] [place] Fourth [place] Definition of Myocardial Infraction Type II ND is indicated when an acute myocardial injury in the setting of an abnormal troponin with a rise and fall and clinical indicators suggestive of an imbalance between myocardial oxygen supply demand with acute myocardial ischemia unrelated to coronary thrombosis as evidenced by one of the following: Symptoms of myocardial ischemia New ischemic ECG changes Development of pathological Q waves Imaging evidence of new loss of viable myocardium or new regional wall motion abnormality in a pattern consistent with an ischemic etiology MTDD
== END 2025-01-18 15:25 | DRG 291 ==
LOC: EC 21:02 → 3SCARD 01-12 02:00
PROVIDERS: ADMIT Student in an Organized Health Care Education/Training Program; ATTEND Student in an Organized Health Care Education/Training Program
DX: I11.0 Hypertensive heart disease with heart failure (principal); I50.33 Acute on chronic diastolic (congestive) heart failure; J15.9 Unspecified bacterial pneumonia; J96.21 Acute and chronic respiratory failure with hypoxia; E87.3 Alkalosis; E27.40 Unspecified adrenocortical insufficiency; E87.1 Hypo-osmolality and hyponatremia; J84.10 Pulmonary fibrosis, unspecified; I27.23 Pulmonary hypertension due to lung diseases and hypoxia; I27.20 Pulmonary hypertension, unspecified; J44.0 Chronic obstructive pulmonary disease with (acute) lower respiratory infection; I71.43 Infrarenal abdominal aortic aneurysm, without rupture; F32.A Depression, unspecified; I10 Essential (primary) hypertension; I65.29 Occlusion and stenosis of unspecified carotid artery; J44.1 Chronic obstructive pulmonary disease with (acute) exacerbation; I27.81 Cor pulmonale (chronic); J43.9 Emphysema, unspecified; I50.82 Biventricular heart failure; Z11.52 Encounter for screening for COVID-19; I5A Non-ischemic myocardial injury (non-traumatic); Z99.81 Dependence on supplemental oxygen; Z87.891 Personal history of nicotine dependence; E78.5 Hyperlipidemia, unspecified; E87.6 Hypokalemia; T38.0X5A Adverse effect of glucocorticoids and synthetic analogues, initial encounter; F41.9 Anxiety disorder, unspecified; I25.10 Atherosclerotic heart disease of native coronary artery without angina pectoris; I45.10 Unspecified right bundle-branch block; I49.3 Ventricular premature depolarization; I73.9 Peripheral vascular disease, unspecified; R04.0 Epistaxis; Y95 Nosocomial condition; Z79.51 Long term (current) use of inhaled steroids; Z79.52 Long term (current) use of systemic steroids; Z79.82 Long term (current) use of aspirin; Z79.899 Other long term (current) drug therapy; Z86.79 Personal history of other diseases of the circulatory system; Z90.710 Acquired absence of both cervix and uterus; Z96.659 Presence of unspecified artificial knee joint; Z88.1 Allergy status to other antibiotic agents; R73.9 Hyperglycemia, unspecified
CPT/HCPCS: 36415; 36600; 71045; 71275; 80048; 80053; 82805; 83605; 83735; 83880; 84145; 84484; 85025; 85027; 85610; 85730; 87040; 87636; 93005; 93970; 94640; 94760; 96365; 96366; 96367; 96368; 96372; 96375; 96376; 99291

== ENCOUNTER 2025-01-29 15:44 | Inpatient (IN) | payer MEDICARE, OTHER ==
--- NOTE | 2025-01-29 16:28 | ED ---
General Adult HPI - General Chief complaint: Shortness of Breath Stated complaint: SHAYAN Time Seen by Provider: 01/29/25 15:50 Source: patient, EMS, RN notes reviewed, old records reviewed Mode of arrival: EMS Limitations: no limitations - History of Present Illness Initial comments: This is a 74-year-old female who presents to the emergency department who comes into the emergency department with difficulty breathing. Patient states the last 2 days she is feeling little worse but earlier today she became significantly short of breath. According to EMS she was cyanotic when they arrived gave her breathing treatments Solu-Medrol and put her on nonrebreather and her oxygen came up and she was looking considerably better. Patient herself states she has been coughing a lot more last couple of days. Patient denies any fevers. Patient denies any chest pain. Patient has abdominal pain patient has nausea vomiting diarrhea. - Related Data Home Medications Medication Instructions Recorded Confirmed Atorvastatin [Lipitor] 40 mg PO HS 08/06/24 01/29/25 Cetirizine HCl [Zyrtec] 10 mg PO DAILY 08/06/24 01/29/25 Ergocalciferol [Vitamin D2 (1250 1,250 mcg PO MO 08/06/24 01/29/25 Mcg = 83113 Iu)] Fluticasone/Umeclidin/Vilanter 1 puff INHALATION RT-DAILY 08/06/24 01/29/25 [Trelegy Ellipta 200-62.5-25] Ipratropium-Albuterol Nebulize 3 ml INHALATION RT-Q4H 08/06/24 01/29/25 [Duoneb 0.5 mg-3 mg/3 ml Soln] Ipratropium/Albuter 20-100Mcg 1 puff INHALATION RT-QID 08/06/24 01/29/25 [Combivent Respimat 20-100Mcg Inhaler] Sertraline [Zoloft] 50 mg PO DAILY 08/06/24 01/29/25 Albuterol Sulfate [Ventolin HFA] 2 puff INHALATION RT-Q4H PRN 10/24/24 01/29/25 Acetaminophen Tab [Tylenol] 650 mg PO Q6HR PRN 01/12/25 01/29/25 Aspirin 81 mg PO DAILY 01/12/25 01/29/25 Dicyclomine [Bentyl] 20 mg PO BID 01/12/25 01/29/25 Omeprazole 40 mg PO DAILY 01/12/25 01/29/25 Sildenafil Citrate 20 mg PO TID 01/12/25 01/29/25 Benzonatate [Tessalon Perle] 200 mg PO TID 01/29/25 01/29/25 Ipratropium-Albuterol Nebulize 3 ml INHALATION RT-Q6H PRN 01/29/25 01/29/25 [Duoneb 0.5 mg-3 mg/3 ml Soln] Loperamide [Imodium] 2 mg PO Q6H PRN 01/29/25 01/29/25 Potassium Chloride ER [K-Dur 20] 20 meq PO DAILY 01/29/25 01/29/25 predniSONE 10 mg PO DAILY 01/29/25 01/29/25 Previous Rx's Medication Instructions Recorded guaiFENesin [Mucinex] 1,200 mg PO BID #30 tab 08/13/24 Metoprolol Succinate (ER) [Toprol 12.5 mg PO DAILY #60 tab 09/25/24 XL] Fludrocortisone [Florinef] 0.1 mg PO DAILY #0 tab 12/17/24 Furosemide [Lasix] 40 mg PO BID@0900,1600 tab 01/18/25 Allergies Allergy/AdvReac Type Severity Reaction Status Date / Time levofloxacin [From Levaquin] Allergy Unknown Verified 01/29/25 18:01 tetracycline Allergy Unknown Verified 01/29/25 18:01 Review of Systems ROS Statement: Those systems with pertinent positive or pertinent negative responses have been documented in the HPI. ROS Other: All systems not noted in ROS Statement are negative. Past Medical History Past Medical History: COPD, Hyperlipidemia, Hypertension, Respiratory Disorder Additional Past Medical History / Comment(s): Aortic aneurysm. Pulmonary Hypertension History of Any Multi-Drug Resistant Organisms: None Reported Past Surgical History: Breast Surgery, Hysterectomy Additional Past Surgical History / Comment(s): Knee replacement. Wrist surgery. Cataract surgery Past Anesthesia/Blood Transfusion Reactions: No Reported Reaction Past Psychological History: Depression Smoking Status: Former smoker Past Alcohol Use History: None Reported Past Drug Use History: None Reported - Past Family History Mother Family Medical History: Cancer, Diabetes Mellitus Additional Family Medical History / Comment(s): from lung cancer Father Additional Family Medical History / Comment(s): from brain aneurysm General Exam - General Exam Comments Initial Comments: GENERAL: Patient is well-developed and well-nourished. Patient is nontoxic and well- hydrated and is in mild distress. ENT: Neck is soft and supple. No significant lymphadenopathy is noted. Oropharynx is clear. Moist mucous membranes. Neck has full range of motion without eliciting any pain. EYES: The sclera were anicteric and conjunctiva were pink and moist. Extraocular movements were intact and pupils were equal round and reactive to light. Eyelids were unremarkable. PULMONARY: Diminished breath sounds CARDIOVASCULAR: There is a regular rate and rhythm without any murmurs gallops or rubs. ABDOMEN: Soft and nontender with normal bowel sounds. SKIN: Skin is clear with no lesions or rashes and otherwise unremarkable. NEUROLOGIC: Patient is alert and oriented x3. Cranial nerves II through XII are grossly intact. Motor and sensory are also intact. Normal speech, volume and content. Symmetrical smile. MUSCULOSKELETAL: Normal extremities with adequate strength and full range of motion. LYMPHATICS: No significant lymphadenopathy is noted PSYCHIATRIC: Normal psychiatric evaluation. N Limitations: no limitations Course Vital Signs 01/29/25 01/29/25 01/29/25 15:47 15:52 16:24 Temperature 97.5 F L Pulse Rate 110 H Respiratory 36 H 36 H Rate Blood Pressure 116/80 O2 Sat by Pulse 87 L 86 L Oximetry Fraction of Inspired Oxygen (FIO2) 01/29/25 01/29/25 16:53 17:02 Temperature Pulse Rate 101 H Respiratory 24 Rate Blood Pressure 120/86 O2 Sat by Pulse 94 L Oximetry Fraction of 80 Inspired Oxygen (FIO2) Medical Decision Making - Medical Decision Making EKG is interpreted by myself EKG shows sinus tachycardia with occasional PVC at 104 bpm [place] interval 110 QRS is 106 QT interval 357 QTc is 417. Patient's EKG shows no ST segment elevation or depression Was pt. sent in by a medical professional or institution (, PA, V BELT COVERER, urgent care, hospital, or [facility]...) When possible be specific @ -No Did you speak to anyone other than the patient for history (EMS, parent, family, police, friend...)? What history was obtained from this source @ -No Did you review nursing and triage notes (agree or disagree)? Why? @ -I reviewed and agree with nursing and triage notes Were old charts reviewed (outside hosp., previous admission, EMS record, old EKG, old radiological studies, urgent care reports/EKG's, [facility] records)? Report findings @ -No old charts were reviewed Differential Diagnosis? @ -Differential Dyspnea: Coronary syndrome, arrhythmia, tamponade, asthma, COPD, pulmonary embolism, pneumonia, pneumothorax, pulmonary effusion, anaphylaxis, diabetic ketoacidosis, flailed chest, pulmonary contusion, diaphragmatic rupture, anemia, neuromuscular, this is not meant to be an all-inclusive list. EKG interpreted by me (3pts min.). @ -As above X-rays interpreted by me (1pt min.). @ -Chest x-ray shows right lower lobe infiltrate CT interpreted by me (1pt min.). @ -None done U/S interpreted by me (1pt. min.). @ -None done What testing was considered but not performed or refused? (CT, X-rays, U/S, labs)? Why? @ -None What meds were considered but not given or refused? Why? @ -None Did you discuss the management of the patient with other professionals (professionals i.e. , PA, V BELT COVERER, lab, RT, psych nurse, social insurance adviser, biomedical engineering technologist, teacher, armed security officer, corrections caseworker)? Give summary @ -I spoke with sound physicians they agreed to admit the patient admitted Was smoking cessation discussed for >3mins.? @ -No Was critical care preformed (if so, how long)? @ -No Were there social determinants of health that impacted care today? How? (Homelessness, low income, unemployed, alcoholism, drug addiction, transportation, low edu. Level, literacy, decrease access to med. care, long-term, rehab)? @ -No Was there de-escalation of care discussed even if they declined (Discuss DNR or withdrawal of care, Hospice)? DNR status @ -No What co-morbidities impacted this encounter? (DM, HTN, Smoking, COPD, CAD, Cancer, CVA, ARF, Chemo, Hep., AIDS, mental health diagnosis, sleep apnea, morbid obesity)? @ -None Was patient admitted / discharged? Hospital course, mention meds given and route, prescriptions, significant lab abnormalities, going to OR and other pertinent info. @ -Patient received antibiotics for the pneumonia in the emergency department. Patient was oxygenating on high flow at about 87% Undiagnosed new problem with uncertain prognosis? @ -No Drug Therapy requiring intensive monitoring for toxicity (Heparin, Nitro, Insulin, Cardizem)? @ -No Were any procedures done? @ -No Diagnosis/symptom? @ -Pneumonia Acute, or Chronic, or Acute on Chronic? @ -Acute Uncomplicated (without systemic symptoms) or Complicated (systemic symptoms)? @ -Default Side effects of treatment? @ -No Exacerbation, Progression, or Severe Exacerbation? @ -No Poses a threat to life or bodily function? How? (Chest pain, [place], [place], pneumonia, PE, COPD, DKA, ARF, appy, cholecystitis, CVA, Diverticulitis, Homicidal, Suicidal, threat to staff... and all critical care pts) @ -Yes this can lead to sepsis and endorgan dysfunction Diagnosis/symptom? @ -COPD exacerbation Acute, or Chronic, or Acute on Chronic? @ -Acute Uncomplicated (without systemic symptoms) or Complicated (systemic symptoms)? @ -Complicated Side effects of treatment? @ -None Exacerbation, Progression, or Severe Exacerbation] @ -No Poses a threat to life or bodily function? @ -Yes this can lead to hypoxia and endorgan dysfunction - Lab Data Result diagrams: 01/29/25 16:23 01/29/25 16:23 Lab Results 01/29/25 01/29/25 01/29/25 Range/Units 16:23 16:23 16:23 WBC 23.11 H (4.50-10.00) 10*3/uL RBC 4.66 (4.10-5.20) 10*6/uL Hgb 12.0 (12.0-15.0) g/dL Hct 38.7 (37.2-46.3) % MCV 83.0 (80.0-97.0) fL MCH 25.8 L (27.0-32.0) pg MCHC 31.0 L (32.0-37.0) g/dL Plt Count 173 D (140-440) 10*3/uL MPV 10.5 (9.5-12.2) fL Immature Gran % (Auto) 0.6 % Neutrophils % 90.3 % Lymphocytes % 5.1 % Monocytes % 3.6 % Eosinophils % 0.1 % Basophils % 0.3 % Immature Gran # 0.13 H (0.00-0.04) 10*3/uL Neutrophils # 20.86 H (1.80-7.70) 10*3/uL Lymphocytes # 1.19 (0.90-5.00) 10*3/uL Monocytes # 0.83 (0.20-1.00) 10*3/uL Eosinophils # 0.03 L (0.04-0.35) 10*3/uL Basophils # 0.07 (0.00-0.10) 10*3/uL PT 10.6 (10.0-12.5) sec INR 0.9 (<1.2) APTT 21.5 L (22.0-30.0) sec VBG pH (7.31-7.41) VBG pCO2 (37-51) mmHg VBG HCO3 (24-28) mmol/L Sodium 138 (137-145) mmol/L Potassium 3.1 L (3.5-5.1) mmol/L Chloride 100 (98-107) mmol/L Carbon Dioxide 26 (22-30) mmol/L Anion Gap 12 mmol/L BUN 25 H (7-17) mg/dL Creatinine 0.69 (0.52-1.04) mg/dL Est GFR (CKD-EPI)AfAm >90 (>60 ml/min/1.73 sqM) Est GFR (CKD-EPI)NonAf 87 (>60 ml/min/1.73 sqM) Glucose 170 H (74-99) mg/dL Plasma Lactic Acid Yunior (0.7-2.0) mmol/L Calcium 9.3 (8.4-10.2) mg/dL Magnesium 1.6 (1.6-2.3) mg/dL Total Bilirubin 1.1 (0.2-1.3) mg/dL AST 29 (14-36) U/L ALT 22 (4-34) U/L Alkaline Phosphatase 75 (38-126) U/L Troponin I (0.000-0.034) ng/mL Total Protein 6.3 (6.3-8.2) g/dL Albumin 3.9 (3.5-5.0) g/dL 01/29/25 01/29/25 01/29/25 Range/Units 16:23 16:23 17:35 WBC (4.50-10.00) 10*3/uL RBC (4.10-5.20) 10*6/uL Hgb (12.0-15.0) g/dL Hct (37.2-46.3) % MCV (80.0-97.0) fL MCH (27.0-32.0) pg MCHC (32.0-37.0) g/dL Plt Count (140-440) 10*3/uL MPV (9.5-12.2) fL Immature Gran % (Auto) % Neutrophils % % Lymphocytes % % Monocytes % % Eosinophils % % Basophils % % Immature Gran # (0.00-0.04) 10*3/uL Neutrophils # (1.80-7.70) 10*3/uL Lymphocytes # (0.90-5.00) 10*3/uL Monocytes # (0.20-1.00) 10*3/uL Eosinophils # (0.04-0.35) 10*3/uL Basophils # (0.00-0.10) 10*3/uL PT (10.0-12.5) sec INR (<1.2) APTT (22.0-30.0) sec VBG pH 7.44 H (7.31-7.41) VBG pCO2 41 (37-51) mmHg VBG HCO3 27 (24-28) mmol/L Sodium (137-145) mmol/L Potassium (3.5-5.1) mmol/L Chloride (98-107) mmol/L Carbon Dioxide (22-30) mmol/L Anion Gap mmol/L BUN (7-17) mg/dL Creatinine (0.52-1.04) mg/dL Est GFR (CKD-EPI)AfAm (>60 ml/min/1.73 sqM) Est GFR (CKD-EPI)NonAf (>60 ml/min/1.73 sqM) Glucose (74-99) mg/dL Plasma Lactic Acid Yunior 2.8 H* (0.7-2.0) mmol/L Calcium (8.4-10.2) mg/dL Magnesium (1.6-2.3) mg/dL Total Bilirubin (0.2-1.3) mg/dL AST (14-36) U/L ALT (4-34) U/L Alkaline Phosphatase (38-126) U/L Troponin I 0.062 H* (0.000-0.034) ng/mL Total Protein (6.3-8.2) g/dL Albumin (3.5-5.0) g/dL Disposition Clinical Impression: COPD exacerbation, Pneumonia Disposition: ADMITTED IP TO THIS HOSP Referrals: Nolan Chopra MD [Primary Care Provider] - 1-2 days Time of Disposition: 18:24
[2025-01-29 16:31] LABS: Basophils # (A) 0.07 10*3/uL (0.00-0.10); Basophils % (A) 0.3 %; Eosinophils # (A) 0.03 10*3/uL (0.04-0.35); Eosinophils % (A) 0.1 %; HCT 38.7 % (37.2-46.3); HGB 12.0 g/dL (12.0-15.0); Lymphocytes # (A) 1.19 10*3/uL (0.90-5.00); Lymphocytes % (A) 5.1 %; MCH 25.8 pg (27.0-32.0); MCHC 31.0 g/dL (32.0-37.0); MCV 83.0 fL (80.0-97.0); Monocytes # (A) 0.83 10*3/uL (0.20-1.00); Monocytes % (A) 3.6 %; Neutrophils # (A) 20.86 10*3/uL (1.80-7.70); Neutrophils % (A) 90.3 %; RBC 4.66 10*6/uL (4.10-5.20); RDW 19.9 % (11.5-14.5); WBC 23.11 10*3/uL (4.50-10.00)
[2025-01-29 16:37] LABS: INR 0.9 (<1.2); Prothrombin Time 10.6 sec (10.0-12.5)
[2025-01-29 16:40] LABS: ALT 22 U/L (4-34); AST 29 U/L (14-36); African American GFR (CKD) >90 (>60 ml/min/1.73 sqM); Albumin 3.9 g/dL (3.5-5.0); Alkaline Phosphatase 75 U/L (38-126); Anion Gap 12 mmol/L; Blood Urea Nitrogen 25 mg/dL (7-17); Calcium 9.3 mg/dL (8.4-10.2); Carbon Dioxide 26 mmol/L (22-30); Chloride 100 mmol/L (98-107); Glucose 170 mg/dL (74-99); Magnesium 1.6 mg/dL (1.6-2.3); Non-African American GFR(CKD) 87 (>60 ml/min/1.73 sqM); Potassium 3.1 mmol/L (3.5-5.1); Sodium 138 mmol/L (137-145); Total Protein 6.3 g/dL (6.3-8.2)
[2025-01-29 16:44] LABS: Partial Thromboplastin Time 21.5 sec (22.0-30.0)
[2025-01-29 17:14] LABS: Platelet Count 173 10*3/uL (140-440)
--- NOTE | 2025-01-29 17:18 | XR ---
EXAMINATION TYPE: XR chest 2V DATE OF EXAM: 01/29/2025 4:41 PM COMPARISON: Chest radiographs from 01/15/2025. CLINICAL INDICATION: Female, 74 years old with history of difficulty breathing; [facility] TECHNIQUE: XR chest 2V Frontal and lateral views of the chest. FINDINGS: Lungs/Pleura: There is no evidence of pleural effusion, focal consolidation, or pneumothorax. Pulmonary vascularity: Unremarkable. Heart/mediastinum: Cardiomediastinal silhouette is unremarkable. Musculoskeletal: No acute osseous pathology. IMPRESSION: 1. Right lower lobe airspace opacities correlate for developing pneumonia 2. COPD changes. [facility], , 01/29/2025 5:16 PM
[2025-01-29 17:38] LABS: VBG HCO3 27.0 mmol/L (24-28); VBG PCO2 41.0 mmHg (37-51); VBG PH 7.44 (7.31-7.41)
[2025-01-29] MEDS ORDERED: IPRATROPIUM-ALBUTEROL 3 ML NEB INHALATION PRN (18:25)
[2025-01-29] MEDS ORDERED: NALOXONE 0.4 MG/ML 1 ML VIAL IVP PRN (18:25)
[2025-01-29] MEDS: LORazepam 1 MG/0.5 ML VIAL IV STA (18:29)
[2025-01-29] MEDS: cefTRIAXone IN SWFI 1,000 MG/10 ML SYRINGE IVP STA (19:03)
[2025-01-29] MEDS: IPRATROPIUM-ALBUTEROL 3 ML NEB INHALATION SCH (19:54)
[2025-01-29] MEDS: LORazepam 1 MG/0.5 ML VIAL IV PRN (21:17)
[2025-01-29] MEDS: FUROSEMIDE 10 MG/ML 4 ML VIAL IV STA (21:17)
--- NOTE | 2025-01-29 21:27 | XR ---
EXAMINATION TYPE: XR chest 1V portable DATE OF EXAM: 01/29/2025 9:13 PM CLINICAL INDICATION:Female, 74 years old with history of Resp distress; [facility] COMPARISON: Chest radiographs from same day TECHNIQUE: XR chest 1V portable Frontal view of the chest. FINDINGS: Lungs/Pleura: Right lower lobe airspace opacity appears more conspicuous when compared to the exam fr om a few hours prior. Similar senescent and emphysematous changes in the remainder of the lungs. No p neumothorax. Pulmonary vascularity: Unchanged. Heart/mediastinum: Cardiomediastinal silhouette is unchanged. Musculoskeletal: No acute osseous pathology. Other findings: None IMPRESSION: Slightly more conspicuous appearance of the right lower lobe airspace disease when compared to the ex am from a few hours prior which is concerning for developing pneumonia. [facility], , 01/29/2025 9:25 PM
[2025-01-29] MEDS: IPRATROPIUM-ALBUTEROL 3 ML NEB IH STA (22:04)
[2025-01-29] MEDS ORDERED: ACETAMINOPHEN TAB 325 MG TAB PO PRN (22:49)
--- NOTE | 2025-01-29 22:49 | P.HPIM ---
History of Present Illness H&P Date: 01/29/25 Chief Complaint: Acute respiratory distress Patient is 74 year old female with known COPD on 5 L oxygen at home presents with acute respiratory distress. She was admitted and treated twice over the past 1.5 months for an acute COPD exacerbation requiring high flow oxygen. Patient is currently unable to provide any meaningful history due to her acute respiratory distress. he SOB started 2 days ago and got worse today , notified EMs who found her cyanotic despite supplemental oxygen ,they placed her on non rebreather and gave her steroids natalee any fever, chills, chest pain , denies any history of blood clots patient is former smoker Lungs: Good breath sounds bilaterally, diminished. No wheezing, no rales. Heart: Tachycardia. Normal S1 S2, no murmurs. Extremities: Trace leg edema bilaterally. Abdomen: Soft, lax, non-tender, bowel sounds positive. review of systems Pertinent positives as noted in HPI. All other systems were reviewed and are negative on exam Constitutional: respiratory distress , tachypnic and tachycardia Eyes: Anicteric sclerae, moist conjunctiva, Pupils equal round reactive to light Neck: Supple, no masses, or JVD No carotid bruits No thyromegaly Lungs: diminished breath sounds Clear to percussion using accessory muscle use Cardiovascular: Heart tachycardia, No murmurs, gallops, or rubs trace bilateral peripheral edema Abdominal: Soft Nontender, no guarding, rebound or rigidity Abdomen moving with respiration Normoactive bowel sounds Extremities: No digital cyanosis No clubbing Pedal pulses intact and symmetrical Radial pulses intact and symmetrical No calf tenderness Psychiatric: Alert and oriented to person, place and time Appropriate affect Neuro Muscles Strength 5/5 in all 4 extremities Sensation to light touch grossly present throughout Cranial nerves II-XII grossly intact Past Medical History Past Medical History: COPD, Hyperlipidemia, Hypertension, Respiratory Disorder Additional Past Medical History / Comment(s): Aortic aneurysm. Pulmonary Hypertension History of Any Multi-Drug Resistant Organisms: None Reported Past Surgical History: Breast Surgery, Hysterectomy Additional Past Surgical History / Comment(s): Knee replacement. Wrist surgery. Cataract surgery Past Anesthesia/Blood Transfusion Reactions: No Reported Reaction Past Psychological History: Depression Smoking Status: Former smoker Past Alcohol Use History: None Reported Past Drug Use History: None Reported - Past Family History Mother Family Medical History: Cancer, Diabetes Mellitus Additional Family Medical History / Comment(s): from lung cancer Father Additional Family Medical History / Comment(s): from brain aneurysm Medications and Allergies Home Medications Medication Instructions Recorded Confirmed Type Atorvastatin [Lipitor] 40 mg PO HS 08/06/24 01/29/25 History Cetirizine HCl [Zyrtec] 10 mg PO DAILY 08/06/24 01/29/25 History Ergocalciferol [Vitamin D2 (1250 1,250 mcg PO MO 08/06/24 01/29/25 History Mcg = 74044 Iu)] Fluticasone/Umeclidin/Vilanter 1 puff INHALATION RT-DAILY 08/06/24 01/29/25 History [Trelegy Ellipta 200-62.5-25] Ipratropium-Albuterol Nebulize 3 ml INHALATION RT-Q4H 08/06/24 01/29/25 History [Duoneb 0.5 mg-3 mg/3 ml Soln] Ipratropium/Albuter 20-100Mcg 1 puff INHALATION RT-QID 08/06/24 01/29/25 History [Combivent Respimat 20-100Mcg Inhaler] Sertraline [Zoloft] 50 mg PO DAILY 08/06/24 01/29/25 History guaiFENesin [Mucinex] 1,200 mg PO BID #30 tab 08/13/24 01/29/25 Rx Metoprolol Succinate (ER) [Toprol 12.5 mg PO DAILY #60 tab 09/25/24 01/29/25 Rx XL] Albuterol Sulfate [Ventolin HFA] 2 puff INHALATION RT-Q4H PRN 10/24/24 01/29/25 History Fludrocortisone [Florinef] 0.1 mg PO DAILY #0 tab 12/17/24 01/29/25 Rx Acetaminophen Tab [Tylenol] 650 mg PO Q6HR PRN 01/12/25 01/29/25 History Aspirin 81 mg PO DAILY 01/12/25 01/29/25 History Dicyclomine [Bentyl] 20 mg PO BID 01/12/25 01/29/25 History Omeprazole 40 mg PO DAILY 01/12/25 01/29/25 History Sildenafil Citrate 20 mg PO TID 01/12/25 01/29/25 History Furosemide [Lasix] 40 mg PO BID@0900,1600 tab 01/18/25 01/29/25 Rx Benzonatate [Tessalon Perle] 200 mg PO TID 01/29/25 01/29/25 History Ipratropium-Albuterol Nebulize 3 ml INHALATION RT-Q6H PRN 01/29/25 01/29/25 History [Duoneb 0.5 mg-3 mg/3 ml Soln] Loperamide [Imodium] 2 mg PO Q6H PRN 01/29/25 01/29/25 History Potassium Chloride ER [K-Dur 20] 20 meq PO DAILY 01/29/25 01/29/25 History predniSONE 10 mg PO DAILY 01/29/25 01/29/25 History Allergies Allergy/AdvReac Type Severity Reaction Status Date / Time levofloxacin [From Levaquin] Allergy Unknown Verified 01/29/25 18:01 tetracycline Allergy Unknown Verified 01/29/25 18:01 Physical Exam Vitals: Vital Signs Temp Pulse Resp BP Pulse Ox FiO2 01/29/25 22:07 108 H 01/29/25 22:03 100.1 F H 110 H 26 H 124/89 91 L 01/29/25 21:35 100 01/29/25 21:27 110 H 24 116/83 88 L 01/29/25 20:54 100 01/29/25 20:45 28 H 75 L 01/29/25 20:11 105 H 01/29/25 19:57 108 H 01/29/25 19:50 94 L 80 01/29/25 19:33 105 H 20 105/68 96 01/29/25 18:30 90 01/29/25 18:29 105 H 20 88 L 01/29/25 17:02 101 H 24 120/86 94 L 01/29/25 16:53 80 01/29/25 16:24 86 L 01/29/25 15:52 36 H 01/29/25 15:47 97.5 F L 110 H 36 H 116/80 87 L Intake and Output 01/29/25 01/29/25 01/29/25 06:59 14:59 22:59 Output Total 300 Balance -300 Output: Urine 300 Uretheral (Ingram) 300 Other: Weight 59.421 kg Results CBC & Chem 7: 01/29/25 16:23 01/29/25 16:23 Labs: Abnormal Lab Results - Last 24 Hours (Table) 01/29/25 01/29/25 01/29/25 Range/Units 16:23 16:23 16:23 WBC 23.11 H (4.50-10.00) 10*3/uL MCH 25.8 L (27.0-32.0) pg MCHC 31.0 L (32.0-37.0) g/dL Immature Gran # 0.13 H (0.00-0.04) 10*3/uL Neutrophils # 20.86 H (1.80-7.70) 10*3/uL Eosinophils # 0.03 L (0.04-0.35) 10*3/uL APTT 21.5 L (22.0-30.0) sec VBG pH (7.31-7.41) Potassium 3.1 L (3.5-5.1) mmol/L BUN 25 H (7-17) mg/dL Glucose 170 H (74-99) mg/dL Plasma Lactic Acid Yunior (0.7-2.0) mmol/L Troponin I (0.000-0.034) ng/mL 01/29/25 01/29/25 01/29/25 Range/Units 16:23 16:23 17:35 WBC (4.50-10.00) 10*3/uL MCH (27.0-32.0) pg MCHC (32.0-37.0) g/dL Immature Gran # (0.00-0.04) 10*3/uL Neutrophils # (1.80-7.70) 10*3/uL Eosinophils # (0.04-0.35) 10*3/uL APTT (22.0-30.0) sec VBG pH 7.44 H (7.31-7.41) Potassium (3.5-5.1) mmol/L BUN (7-17) mg/dL Glucose (74-99) mg/dL Plasma Lactic Acid Yunior 2.8 H* (0.7-2.0) mmol/L Troponin I 0.062 H* (0.000-0.034) ng/mL 01/29/25 Range/Units 18:54 WBC (4.50-10.00) 10*3/uL MCH (27.0-32.0) pg MCHC (32.0-37.0) g/dL Immature Gran # (0.00-0.04) 10*3/uL Neutrophils # (1.80-7.70) 10*3/uL Eosinophils # (0.04-0.35) 10*3/uL APTT (22.0-30.0) sec VBG pH (7.31-7.41) Potassium (3.5-5.1) mmol/L BUN (7-17) mg/dL Glucose (74-99) mg/dL Plasma Lactic Acid Yunior 2.8 H* (0.7-2.0) mmol/L Troponin I (0.000-0.034) ng/mL Assessment and Plan Assessment: 74 year old female with copd on home oxygen presented with sudden worsening of SOB , she had two similar admissions over the past 1.5 months , I discussed the case with ED doc and I accepted the admission for the following Acute on chronic hypoxic respiratory failure secondary to acute COPD exacerbation, possible underlying pneumonia. Supplemental oxygen as needed. Switch from Airvo high flow to BiPAP. Ativan 1 mg IV push PRN to help tolerate BiPAP. Follow up blood cultures. Check Legionella antigen in urine Initiate Rocephin 2 grams IV piggyback daily.Azithromycin 500 mg IV piggyback daily. DuoNebs scheduled and PRN. Review home medications, resume inhalers if any. IV systemic steroids with Solu-Medrol 60 mg Q6 hours. Pulmonary consult. CXR showin hypokalemia , possibly secondary to frequent nebulizers with albuterol replace orally as tolerated check Mg level and replace follow up electrolytes chronic conditions hypertension , hyperlipidemia CAD, Depression GERD resume home meds DVT PPX lovenox 40 mg sc daily full code anticipated length of stay > 48 hours
[2025-01-29] MEDS: POTASSIUM CHLORIDE 10 MEQ in WATER FOR INJECTION 1 100ML.BAG IVPB SCH (23:05)
[2025-01-29] MEDS: MAGNESIUM SULFATE-D5W PMX 1 GM in DEXTROSE/WATER 1 100ML.BAG IVPB ONE (23:05)
[2025-01-29] MEDS: MORPHINE SULFATE 4 MG/ML SYRINGE IVP STA (23:27)
[2025-01-29] MEDS: ACETAMINOPHEN IV (For NPO) 1,000 MG in EMPTY BAG 1 BAG IVPB ONE (23:28)
[2025-01-29 23:44] LABS: Allen Test Performed? Yes
[2025-01-29 23:52] LABS: ABG HCO3 25 mmol/L (21-25); ABG PCO2 39 mmHg (35-45); ABG PH 7.43 (7.35-7.45); ABG TCO2 27 mmol/L (19-24)
[2025-01-29 23:53] LABS: ABG PO2 57 mmHg (83-108)
[2025-01-29] MEDS: AMOXIC-POT CLAV 875-125MG 1 EACH TAB PO SCH (23:59)
[2025-01-30] MEDS: methylPREDNISolone SOD SUCCI 125 MG/2 ML VIAL IV SCH (00:03)
[2025-01-30] MEDS: TIOTROPIUM 2.5 MCG INHALER INHALATION SCH (07:49)
[2025-01-30] MEDS: SYMBICORT 160-4.5 MCG INHALER INHALATION SCH (07:50)
[2025-01-30 09:38] LABS: Basophils # (A) 0.08 10*3/uL (0.00-0.10); Basophils % (A) 0.4 %; Eosinophils # (A) 0.10 10*3/uL (0.04-0.35); Eosinophils % (A) 0.5 %; HCT 40.6 % (37.2-46.3); HGB 12.3 g/dL (12.0-15.0); Lymphocytes # (A) 0.42 10*3/uL (0.90-5.00); Lymphocytes % (A) 2.0 %; MCH 25.8 pg (27.0-32.0); MCHC 30.3 g/dL (32.0-37.0); MCV 85.1 fL (80.0-97.0); Monocytes # (A) 0.43 10*3/uL (0.20-1.00); Monocytes % (A) 2.1 %; Neutrophils # (A) 19.69 10*3/uL (1.80-7.70); Neutrophils % (A) 94.2 %; Platelet Count 135 10*3/uL (140-440); RBC 4.77 10*6/uL (4.10-5.20); RDW 19.8 % (11.5-14.5); WBC 20.89 10*3/uL (4.50-10.00)
[2025-01-30 09:56] LABS: ALT 21 U/L (4-34); African American GFR (CKD) >90 (>60 ml/min/1.73 sqM); Albumin 3.9 g/dL (3.5-5.0); Anion Gap 13 mmol/L; Blood Urea Nitrogen 27 mg/dL (7-17); Calcium 8.9 mg/dL (8.4-10.2); Carbon Dioxide 28 mmol/L (22-30); Chloride 99 mmol/L (98-107); Glucose 194 mg/dL (74-99); Non-African American GFR(CKD) 80 (>60 ml/min/1.73 sqM); Sodium 140 mmol/L (137-145); Total Protein 6.2 g/dL (6.3-8.2)
[2025-01-30 10:05] LABS: NT-Pro-B-Type Natriuretic Pept 22500 pg/mL
[2025-01-30] MEDS: AZITHROMYCIN 500 MG TAB PO SCH (10:12)
[2025-01-30] MEDS: ASPIRIN 81 MG PO SCH (10:13)
[2025-01-30] MEDS: LORATADINE 10 MG TAB PO SCH (10:13)
[2025-01-30] MEDS: METOPROLOL SUCCINATE (ER) 25 MG TAB.ER.24H PO SCH (10:13)
[2025-01-30] MEDS: POTASSIUM CHLORIDE ER 20 MEQ TAB.ER PO SCH (10:13)
[2025-01-30] MEDS: SERTRALINE 50 MG TAB PO SCH (10:13)
[2025-01-30] MEDS: CEFEPIME 2 GM in SODIUM CHLORIDE 0.9% 100 ML IVPB SCH (10:14)
[2025-01-30] MEDS: SILDENAFIL 20 MG TAB PO SCH (10:14)
[2025-01-30] MEDS: FUROSEMIDE 40 MG TAB PO SCH (10:16)
[2025-01-30 10:24] LABS: AST 33 U/L (14-36); Alkaline Phosphatase 67 U/L (38-126); Potassium 4.4 mmol/L (3.5-5.1)
[2025-01-30] MEDS ORDERED: VANCOMYCIN IV PER PHARMACY 1 EACH MISC MISCELLANE PRN (11:28)
[2025-01-30] MEDS ORDERED: DEXTROSE 50% SYRINGE 50 ML IVP PRN ×2 (11:43)
--- NOTE | 2025-01-30 11:53 | P.PN ---
Subjective Progress Note Date: 01/30/25 Hospital Course: Patient is a 74-year-old female with a past medical history of advanced COPD w ith chronic hypoxic respiratory failure home oxygen dependent on 4 L, severe pulmonary hypertension, infrarenal abdominal aortic aneurysm reported at approximately 6 cm and awaiting repair, hypertension, hyperlipidemia, and former smoker with > 40 pack per year history. Patient reports that she follows with Dr. Colunga, fruit and vegetable inspector and Dr. Fontana for special programs director. presented to ED with shortness of breath. Due to acute respiratory failure and distress she was not able to provide significant history on admission. Per documentation review, shortness of breath and cough started 2 days ago and has been progressively getting worse. She reportedly was found cyanotic despite supplemental oxygen, was placed on regular breathing and received steroids. No fevers, chills, chest pain reported. She was admitted for further management of acute on chronic hypoxic respiratory failure. Rapid response was called on 01/29 evening due to worsening respiratory distress and hypoxemia, was placed on BiPAP and provided with additional dose of IV Lasix, Ingram catheter inserted. Patient was afebrile on admission however spiked fever Tmax 100.1 during rapid response, blood pressure remained stable. On admission lab work significant for leukocytosis 23.1, of note, at discharge WBC count was 18.8 likely due to steroid use, hemoglobin stable at 12.1, ABG with normal pH 7.43, pCO2 39 and PO2 low 57, sodium normal, potassium low 3.1, bicarb WNL, creatinine normal, lactic acid was elevated 2.6, trended down to 2.0 after, troponin elevated 0.0 62, chest x-ray showed right lower lobe airspace opacity correlate for developing pneumonia. Of note, patient was discharged on 01/18/2025 to rehab after prolonged hospitalization due to acute on chronic hypoxic respiratory failure requiring Airvo. 01/30: Seen and examined in the ER, patient is on BiPAP, unable to participate in meaningful conversation, she was opening eyes on voice. BiPAP settings 14/7, 70% FiO2. Blood pressure 106/65, heart rate in the 90s. Due to concern for healthcare associated pneumonia in the settings of recent hospitalization with antibiotics, she was switched to cefepime and pharmacy to dose vancomycin, MRSA swab ordered, cultures pending. BNP 22,500, up from 18,500 last admission. Bilateral lower extremity swelling noted on exam, asymmetric, venous duplex ordered. Pertinent positives and negatives as discussed above, a complete review of systems was performed and all other systems are negative. Vitals Signs Reviewed. General: [Ill-appearing in respiratory distress, on bipapa Derm: [warm], [dry] Head: [atraumatic], [normocephalic], [symmetric] Eyes: [EOMI], [no lid lag], [anicteric sclera] Mouth: [no lip lesion], [mucus membranes moist] Cardiovascular: [S1S2 reg], [ murmur] Lungs: [Diminished bilateral breath sounds, no wheezing] Abdominal: [soft], [ nontender to palpation], [no guarding], [no appreciable organomegaly] Ext: [no gross muscle atrophy], [bilateral lower extremity edema [no contra ctures] Neuro: [ CN II-XI grossly intact], [no focal neuro deficits] Psych: [Alert Assessment and Plan: Acute on chronic respiratory failure with hypoxia, multifactorial Possible healthcare associated pneumonia Advanced COPD without acute exacerbation severe pulmonary hypertension -Consult to Pulmonology and cardiology, appreciate recommendations -Continue strict I's and O's, daily weights, Lasix 40 oral twice daily, BMP daily - Continued cefepime 2 g every 8 hours, pharmacy to vancomycin SOT of antibiotics 01/29 -Continue steroids Solu-Medrol 60 IV every 6 hours -Oxygenation to be administered and titrated as needed to maintain SPO2 equal to or greater than 92% -Telemetry monitoring. -Monitor pulse-oximetry -Duonebs scheduled 4 times daily and as needed for SOB and/or wheezing -Incentive Spirometry -Steroids: Solu-Medrol 60IV every 6 hours -Continue sildenafil 20 mg 3 times daily and Symbicort 160-4.5 mcg inhaler 2 puffs twice daily. -order Accu-Cheks with hypoglycemia precautions and SSI for steroid-induced hyperglycemia - Bilateral lower extremity venous duplex - PT OT consulted - Follow-up MRSA nasal swab and blood cultures, procalcitonin ordered and pend ing Elevated troponin, likely secondary to demand ischemia resulting from hypoxia -Cardiology consulted -Telemetry monitoring -Trend troponins Hypokalemia, resolved Possible adrenal insufficiency due to chronic steroid use, will hold fludrocortisone 0.1 daily while patient is on high-dose of Solu-Medrol Infrarenal abdominal aortic aneurysm -Patient denies having any complaints including abdominal pain, back pain, experiencing any numbness/tingling/weakness in her extremities. Continue to follow-up with cardiology Hypertension -Monitor vital signs and continue daily medication regimen with Toprol-XL 12.5 daily if BP tolerates Hyperlipidemia -Continue daily medication regimen with atorvastatin 40 mg daily. Anxiety and depression -Continue Zoloft 50 mg daily. CODE STATUS: Full code DVT prophylaxis: Lovenox Anticipated discharge date: Rehab Anticipated discharge place: Pending clinical course Objective - Vital Signs Vital signs: Vital Signs Temp 99.4 F 01/30/25 01:00 Pulse 98 01/30/25 11:46 Resp 18 01/30/25 08:52 BP 106/65 01/30/25 08:52 Pulse Ox 95 01/30/25 08:52 FiO2 60 01/30/25 11:32 Intake & Output 01/29/25 01/30/25 01/30/25 18:59 06:59 18:59 Output Total 300 Balance -300 Weight 59.421 kg Output: Urine 300 Uretheral (Ingram) 300 - Labs CBC & Chem 7: 01/30/25 09:23 01/30/25 09:23 Labs: Abnormal Lab Results - Last 24 Hours (Table) 01/29/25 01/29/25 01/29/25 Range/Units 16:23 16:23 16:23 WBC 23.11 H (4.50-10.00) 10*3/uL MCH 25.8 L (27.0-32.0) pg MCHC 31.0 L (32.0-37.0) g/dL Plt Count (140-440) 10*3/uL Immature Gran # 0.13 H (0.00-0.04) 10*3/uL Neutrophils # 20.86 H (1.80-7.70) 10*3/uL Lymphocytes # (0.90-5.00) 10*3/uL Eosinophils # 0.03 L (0.04-0.35) 10*3/uL APTT 21.5 L (22.0-30.0) sec ABG pO2 (83-108) mmHg ABG Total CO2 (19-24) mmol/L ABG O2 Saturation (94-97) % VBG pH (7.31-7.41) Potassium 3.1 L (3.5-5.1) mmol/L BUN 25 H (7-17) mg/dL Glucose 170 H (74-99) mg/dL Plasma Lactic Acid Yunior (0.7-2.0) mmol/L Troponin I (0.000-0.034) ng/mL Total Protein (6.3-8.2) g/dL 01/29/25 01/29/25 01/29/25 Range/Units 16:23 16:23 17:35 WBC (4.50-10.00) 10*3/uL MCH (27.0-32.0) pg MCHC (32.0-37.0) g/dL Plt Count (140-440) 10*3/uL Immature Gran # (0.00-0.04) 10*3/uL Neutrophils # (1.80-7.70) 10*3/uL Lymphocytes # (0.90-5.00) 10*3/uL Eosinophils # (0.04-0.35) 10*3/uL APTT (22.0-30.0) sec ABG pO2 (83-108) mmHg ABG Total CO2 (19-24) mmol/L ABG O2 Saturation (94-97) % VBG pH 7.44 H (7.31-7.41) Potassium (3.5-5.1) mmol/L BUN (7-17) mg/dL Glucose (74-99) mg/dL Plasma Lactic Acid Yunior 2.8 H* (0.7-2.0) mmol/L Troponin I 0.062 H* (0.000-0.034) ng/mL Total Protein (6.3-8.2) g/dL 01/29/25 01/29/25 01/29/25 Range/Units 18:54 21:42 23:41 WBC (4.50-10.00) 10*3/uL MCH (27.0-32.0) pg MCHC (32.0-37.0) g/dL Plt Count (140-440) 10*3/uL Immature Gran # (0.00-0.04) 10*3/uL Neutrophils # (1.80-7.70) 10*3/uL Lymphocytes # (0.90-5.00) 10*3/uL Eosinophils # (0.04-0.35) 10*3/uL APTT (22.0-30.0) sec ABG pO2 57 L* (83-108) mmHg ABG Total CO2 27 H (19-24) mmol/L ABG O2 Saturation 89.1 L (94-97) % VBG pH (7.31-7.41) Potassium (3.5-5.1) mmol/L BUN (7-17) mg/dL Glucose (74-99) mg/dL Plasma Lactic Acid Yunior 2.8 H* 2.6 H* (0.7-2.0) mmol/L Troponin I (0.000-0.034) ng/mL Total Protein (6.3-8.2) g/dL 01/30/25 01/30/25 01/30/25 Range/Units 01:04 09:23 09:23 WBC 20.89 H (4.50-10.00) 10*3/uL MCH 25.8 L (27.0-32.0) pg MCHC 30.3 L (32.0-37.0) g/dL Plt Count 135 L (140-440) 10*3/uL Immature Gran # 0.17 H (0.00-0.04) 10*3/uL Neutrophils # 19.69 H (1.80-7.70) 10*3/uL Lymphocytes # 0.42 L (0.90-5.00) 10*3/uL Eosinophils # (0.04-0.35) 10*3/uL APTT (22.0-30.0) sec ABG pO2 (83-108) mmHg ABG Total CO2 (19-24) mmol/L ABG O2 Saturation (94-97) % VBG pH (7.31-7.41) Potassium (3.5-5.1) mmol/L BUN 27 H (7-17) mg/dL Glucose 194 H (74-99) mg/dL Plasma Lactic Acid Yunior 2.2 H* (0.7-2.0) mmol/L Troponin I (0.000-0.034) ng/mL Total Protein 6.2 L (6.3-8.2) g/dL
--- NOTE | 2025-01-30 11:58 | US ---
EXAMINATION TYPE: US venous doppler duplex LE DATE OF EXAM: 01/30/2025 11:47 AM COMPARISON: NONE CLINICAL INDICATION: Female, 74 years old with history of swelling; SHAYAN?COPD exacerbation. High cristóbal sterol, HTN, and is a former smoker. TECHNIQUE: The lower extremity deep venous system is examined utilizing real time linear array sonog elzbieta with graded compression, color doppler sonography, and spectral doppler. SIDE PERFORMED: Bilateral FINDINGS: VESSELS IMAGED: Common Femoral Vein Deep Femoral Vein Greater Saphenous Vein * Femoral Vein Popliteal Vein Small Saphenous Vein * Proximal Calf Veins (* superficial vessels) Right Leg: Negative for DVT, Color Doppler imaging shows patency of the vessels. Spectral waveforms are within normal limits. Left Leg: Negative for DVT, Color Doppler imaging shows patency of the vessels. Spectral waveforms a re within normal limits. Cystic area seen within popliteal fossa IMPRESSION: 1. No ultrasound evidence for deep venous thrombosis. 2. Left popliteal fossa cyst cyst. [facility], , 01/30/2025 11:55 AM
[2025-01-30] MEDS: INSULIN LISPRO (HumaLOG) 100 UNIT/ML 10 mL VL SQ SCH (12:02)
[2025-01-30] MEDS: VANCOMYCIN 1,250 MG in SODIUM CHLORIDE 0.9% 250 ML IVPB ONE (12:13)
--- NOTE | 2025-01-30 13:18 | P.CNPUL ---
History of Present Illness Consult date: 01/30/25 Requesting physician: Gabrielle Tineo Reason for consult: dyspnea, COPD, abnormal CXR/CT Chief complaint: Shortness of breath, cough, congestion History of present illness: This is a 74-year-old female patient who has been chronically ill with chronic obstructive pulmonary disease, interstitial fibrosis, pulmonary hypertension, cor pulmonale, chronic hypoxemic respiratory failure and has had multiple hospitalizations. Just recently discharged from here January 18, 2025 to [facility]. She was brought back in again yesterday with shortness of breath and hypoxemia. Chest x-ray shows chronic changes with possible right lower lobe airspace disease. White count 20.8. Hemoglobin 12.3. Platelets 135. Sodium 140. Potassium 4.4. Bicarb 28. BUN 27. Creatinine 0.75. Glucose 194. proBNP 22,500. She is seen today in consultation in the emergency department. She is currently sitting up on a stretcher. Currently on BiPAP 14/7 and 80% FiO2. She is feeling a bit better now than she was feeling earlier. Review of Systems REVIEW OF SYSTEMS: CONSTITUTIONAL: Denies any recent significant weight loss or weight gain. EYES: Denies change in vision. EARS, NOSE, MOUTH, THROAT: Denies headaches, denies sore throat. CARDIOVASCULAR: Denies chest pain, palpitations or syncopal episodes. RESPIRATORY: Positive for shortness of breath, cough, congestion no hemoptysis. GASTROINTESTINAL: Denies change in appetite, denies abdominal pain GENITOURINARY: Denies hematuria, denies infections. MUSKULOSKELETAL: Denies pain, denies swelling. INTEGUMENTARY: Denies rash, denies eczema. NEUROLOGICAL: Denies recent memory loss, no recent seizure activity. PSYCHIATRIC: Denies anxiety, denies depression. HEMATOLOGIC/LYMPHATIC: Denies anemia, denies enlarged lymph nodes. Past Medical History Past Medical History: COPD, Hyperlipidemia, Hypertension, Respiratory Disorder Additional Past Medical History / Comment(s): Aortic aneurysm. Pulmonary Hypertension History of Any Multi-Drug Resistant Organisms: None Reported Past Surgical History: Breast Surgery, Hysterectomy Additional Past Surgical History / Comment(s): Knee replacement. Wrist surgery. Cataract surgery Past Anesthesia/Blood Transfusion Reactions: No Reported Reaction Past Psychological History: Depression Smoking Status: Former smoker Past Alcohol Use History: None Reported Past Drug Use History: None Reported - Past Family History Mother Family Medical History: Cancer, Diabetes Mellitus Additional Family Medical History / Comment(s): from lung cancer Father Additional Family Medical History / Comment(s): from brain aneurysm Medications and Allergies Home Medications Medication Instructions Recorded Confirmed Type Atorvastatin [Lipitor] 40 mg PO HS 08/06/24 01/29/25 History Cetirizine HCl [Zyrtec] 10 mg PO DAILY 08/06/24 01/29/25 History Ergocalciferol [Vitamin D2 (1250 1,250 mcg PO MO 08/06/24 01/29/25 History Mcg = 95501 Iu)] Fluticasone/Umeclidin/Vilanter 1 puff INHALATION RT-DAILY 08/06/24 01/29/25 History [Trelegy Ellipta 200-62.5-25] Ipratropium-Albuterol Nebulize 3 ml INHALATION RT-Q4H 08/06/24 01/29/25 History [Duoneb 0.5 mg-3 mg/3 ml Soln] Ipratropium/Albuter 20-100Mcg 1 puff INHALATION RT-QID 08/06/24 01/29/25 History [Combivent Respimat 20-100Mcg Inhaler] Sertraline [Zoloft] 50 mg PO DAILY 08/06/24 01/29/25 History guaiFENesin [Mucinex] 1,200 mg PO BID #30 tab 08/13/24 01/29/25 Rx Metoprolol Succinate (ER) [Toprol 12.5 mg PO DAILY #60 tab 09/25/24 01/29/25 Rx XL] Albuterol Sulfate [Ventolin HFA] 2 puff INHALATION RT-Q4H PRN 10/24/24 01/29/25 History Fludrocortisone [Florinef] 0.1 mg PO DAILY #0 tab 12/17/24 01/29/25 Rx Acetaminophen Tab [Tylenol] 650 mg PO Q6HR PRN 01/12/25 01/29/25 History Aspirin 81 mg PO DAILY 01/12/25 01/29/25 History Dicyclomine [Bentyl] 20 mg PO BID 01/12/25 01/29/25 History Omeprazole 40 mg PO DAILY 01/12/25 01/29/25 History Sildenafil Citrate 20 mg PO TID 01/12/25 01/29/25 History Furosemide [Lasix] 40 mg PO BID@0900,1600 tab 01/18/25 01/29/25 Rx Benzonatate [Tessalon Perle] 200 mg PO TID 01/29/25 01/29/25 History Ipratropium-Albuterol Nebulize 3 ml INHALATION RT-Q6H PRN 01/29/25 01/29/25 History [Duoneb 0.5 mg-3 mg/3 ml Soln] Loperamide [Imodium] 2 mg PO Q6H PRN 01/29/25 01/29/25 History Potassium Chloride ER [K-Dur 20] 20 meq PO DAILY 01/29/25 01/29/25 History predniSONE 10 mg PO DAILY 01/29/25 01/29/25 History Allergies Allergy/AdvReac Type Severity Reaction Status Date / Time levofloxacin [From Levaquin] Allergy Unknown Verified 01/29/25 18:01 tetracycline Allergy Unknown Verified 01/29/25 18:01 Physical Exam Vitals: Vital Signs Temp Pulse Resp BP Pulse Ox FiO2 01/30/25 11:46 98 01/30/25 11:32 99 60 01/30/25 08:52 97 18 106/65 95 01/30/25 08:16 70 01/30/25 08:00 91 01/30/25 07:50 92 80 01/30/25 05:00 90 16 96/70 95 01/30/25 03:04 100 01/30/25 01:00 99.4 F 101 H 22 108/73 92 L 01/29/25 23:41 113 H 28 H 114/67 85 L 01/29/25 23:29 100 01/29/25 23:18 120 H 30 H 76 L 01/29/25 22:07 108 H 01/29/25 22:03 100.1 F H 110 H 26 H 124/89 91 L 01/29/25 21:35 100 01/29/25 21:27 110 H 24 116/83 88 L 01/29/25 20:54 100 01/29/25 20:45 28 H 75 L 01/29/25 20:11 105 H 01/29/25 19:57 108 H 01/29/25 19:50 94 L 80 01/29/25 19:33 105 H 20 105/68 96 07/05/25 18:30 90 01/29/25 18:29 105 H 20 88 L 01/29/25 17:02 101 H 24 120/86 94 L 01/29/25 16:53 80 01/29/25 16:24 86 L 01/29/25 15:52 36 H 01/29/25 15:47 97.5 F L 110 H 36 H 116/80 87 L Intake and Output 01/29/25 01/30/25 01/30/25 22:59 06:59 14:59 Output Total 300 Balance -300 Output: Urine 300 Uretheral (Ingram) 300 Other: Weight 59.421 kg GENERAL EXAM: Alert, weak, 74-year-old female, on BiPAP 14/7 and 80% FiO2, in mild respiratory distress. HEAD: Normocephalic. EYES: Normal reaction of pupils, equal size. NOSE: Clear with pink turbinates. THROAT: No erythema or exudates. NECK: No masses, no JVD. CHEST: No chest wall deformity. LUNGS: Equal air entry with bilateral wheezing, few scattered rhonchi, diminished. CVS: S1 and S2 normal with no audible murmur, regular rhythm. ABDOMEN: No hepatosplenomegaly, normal bowel sounds, no guarding or rigidity. SPINE: No scoliosis or deformity SKIN: No rashes CENTRAL NERVOUS SYSTEM: No focal deficits, tone is normal in all 4 extremities. EXTREMITIES: There is no peripheral edema. No clubbing, no cyanosis. Peripheral pulses are intact. Results - Laboratory Findings CBC and BMP: 01/30/25 09:23 01/30/25 09:23 ABG ABG pH 7.43 (7.35-7.45) 01/29/25 23:41 ABG pCO2 39 mmHg (35-45) 01/29/25 23:41 ABG pO2 57 mmHg (83-108) L* 01/29/25 23:41 ABG O2 Saturation 89.1 % (94-97) L 01/29/25 23:41 PT/INR, D-dimer PT 10.6 sec (10.0-12.5) 01/29/25 16:23 INR 0.9 (<1.2) 01/29/25 16:23 Abnormal lab findings: Abnormal Labs 01/29/25 01/29/25 01/29/25 16:23 16:23 16:23 WBC 23.11 H MCH 25.8 L MCHC 31.0 L Plt Count Immature Gran # 0.13 H Neutrophils # 20.86 H Lymphocytes # Eosinophils # 0.03 L APTT 21.5 L ABG pO2 ABG Total CO2 ABG O2 Saturation VBG pH Potassium 3.1 L BUN 25 H Glucose 170 H Plasma Lactic Acid Yunior Troponin I Total Protein 01/29/25 01/29/25 01/29/25 16:23 16:23 17:35 WBC MCH MCHC Plt Count Immature Gran # Neutrophils # Lymphocytes # Eosinophils # APTT ABG pO2 ABG Total CO2 ABG O2 Saturation VBG pH 7.44 H Potassium BUN Glucose Plasma Lactic Acid Yunior 2.8 H* Troponin I 0.062 H* Total Protein 01/29/25 01/29/25 01/29/25 18:54 21:42 23:41 WBC MCH MCHC Plt Count Immature Gran # Neutrophils # Lymphocytes # Eosinophils # APTT ABG pO2 57 L* ABG Total CO2 27 H ABG O2 Saturation 89.1 L VBG pH Potassium BUN Glucose Plasma Lactic Acid Yunior 2.8 H* 2.6 H* Troponin I Total Protein 01/30/25 01/30/25 01/30/25 01:04 09:23 09:23 WBC 20.89 H MCH 25.8 L MCHC 30.3 L Plt Count 135 L Immature Gran # 0.17 H Neutrophils # 19.69 H Lymphocytes # 0.42 L Eosinophils # APTT ABG pO2 ABG Total CO2 ABG O2 Saturation VBG pH Potassium BUN 27 H Glucose 194 H Plasma Lactic Acid Yunior 2.2 H* Troponin I Total Protein 6.2 L 01/30/25 11:55 WBC MCH MCHC Plt Count Immature Gran # Neutrophils # Lymphocytes # Eosinophils # APTT ABG pO2 ABG Total CO2 ABG O2 Saturation VBG pH Potassium BUN Glucose Plasma Lactic Acid Yunior Troponin I 0.052 H* Total Protein - Diagnostic Findings Chest x-ray: image reviewed Assessment and Plan Assessment: Acute on chronic hypoxemic respiratory failure, currently requiring BiPAP 14/7 and 80% FiO2, chest x-ray showing possible right lower lobe pneumonia and fluid volume overload. NT proBNP 22,500. Acute COPD exacerbation Chronic hypoxemic respiratory failure, typically wears 4 to 5 L/min nasal cannula at home Pulmonary hypertension with RV dysfunction and cor pulmonale. echocardiogram from 08/07/2024 showed a preserved LV function, nevertheless, the patient had severe pulmonary hypertension. RV was severely dilated and estimated PA pressure was 67. She had also moderate TR. Right-sided heart catheterization revealed a mean pulmonary artery pressure of 47 mmHg and pulmonary capillary wedge pressure of 15 suggestive of pre-capillary pulmonary hypertension Chronic bilateral lower extremity edema Acute leukocytosis Elevated troponins, likely secondary to supply/demand mismatch COPD/emphysema History of nonobstructive coronary artery disease Infrarenal abdominal aortic aneurysm, 4.7 cm follows with vascular surgery outpatient Systemic hypertension History of hyperlipidemia Peripheral vascular disease and carotid artery stenosis Former tobacco smoker Anxiety/depression Poor overall functional performance based on the above-mentioned multiple comorbidities Plan: The patient was seen and evaluated Chest x-ray, labs and medications reviewed Currently requiring BiPAP 14/7 and 80% FiO2 Titrate down the FiO2 as tolerated Spoke with respiratory therapy Initiate DuoNeb inhalations Initiate Pulmicort and Perforomist inhalations Continue IV Solu-Medrol Continue vancomycin and cefepime Check a procalcitonin Lovenox for DVT prophylaxis Continue diuretics Overall prognosis is guarded We will continue to follow and make further recommendations based on her clinical status I have personally seen and examined the patient, performed the documentation and the assessment and plan as written. Number of minutes spent on the visit: 20 Dictation was produced using [employer] dictation software. Please excuse any grammatical, word or spelling errors.
[2025-01-30 20:26] LABS: Glucose,Whole Blood 172 mg/dL (70-110)
[2025-01-30] MEDS: ATORVASTATIN 40 MG TAB PO SCH (21:12)
[2025-01-30] MEDS: BUDESONIDE 1 MG/2 ML NEBU INHALATION SCH (23:22)
[2025-01-30] MEDS: FORMOTEROL FUMARATE 20 MCG/2 ML NEBU INHALATION SCH (23:22)
[2025-01-31] MEDS: VANCOMYCIN 1,000 MG in SODIUM CHLORIDE 0.9% 250 ML IVPB SCH (04:47)
[2025-01-31 06:07] LABS: Glucose,Whole Blood 203 mg/dL (70-110)
[2025-01-31] MEDS: BENZONATATE 100 MG CAP PO PRN (06:23)
[2025-01-31 07:26] LABS: Basophils # (A) 0.02 10*3/uL (0.00-0.10); Basophils % (A) 0.1 %; Eosinophils # (A) 0.00 10*3/uL (0.04-0.35); Eosinophils % (A) 0.0 %; HCT 33.6 % (37.2-46.3); HGB 10.1 g/dL (12.0-15.0); Lymphocytes # (A) 0.46 10*3/uL (0.90-5.00); Lymphocytes % (A) 2.5 %; MCH 25.4 pg (27.0-32.0); MCHC 30.1 g/dL (32.0-37.0); MCV 84.4 fL (80.0-97.0); Monocytes # (A) 0.44 10*3/uL (0.20-1.00); Monocytes % (A) 2.4 %; Neutrophils # (A) 17.30 10*3/uL (1.80-7.70); Neutrophils % (A) 93.8 %; Platelet Count 132 10*3/uL (140-440); RBC 3.98 10*6/uL (4.10-5.20); RDW 19.7 % (11.5-14.5); WBC 18.44 10*3/uL (4.50-10.00)
[2025-01-31 07:59] LABS: ALT 19 U/L (4-34); AST 32 U/L (14-36); African American GFR (CKD) 82 (>60 ml/min/1.73 sqM); Albumin 3.1 g/dL (3.5-5.0); Alkaline Phosphatase 79 U/L (38-126); Anion Gap 11 mmol/L; Blood Urea Nitrogen 33 mg/dL (7-17); Calcium 8.5 mg/dL (8.4-10.2); Carbon Dioxide 23 mmol/L (22-30); Chloride 104 mmol/L (98-107); Glucose 196 mg/dL (74-99); Non-African American GFR(CKD) 71 (>60 ml/min/1.73 sqM); Potassium 3.7 mmol/L (3.5-5.1); Sodium 138 mmol/L (137-145); Total Protein 5.4 g/dL (6.3-8.2)
[2025-01-31] MEDS: ENOXAPARIN 40 MG/0.4 ML SYRINGE SQ SCH (08:18)
--- NOTE | 2025-01-31 11:15 | P.CRDCN ---
History of Present Illness Consult date: 01/31/25 History of present illness: HISTORY OF PRESENTING ILLNESS: 74-year-old female patient of Dr. Fontana. Past medical history of aortic aneurysm, awaiting surgery, hypertension dyslipidemia mild nonobstructive CAD, severe pulmonary hypertension with cor pulmonale, carotid artery stenosis, COPD chronic hypoxemia on 4 L oxygen. This time she presents to the hospital because of acute on chronic hypoxic respiratory failure along with concerns of acute COPD exacerbation. She was hospitalized on 01/12/2025 with similar complaints. At that time lap welder consulted for CHF exacerbation evaluation. Patient was treated with IV diuretics and her home cardiac medications were continued without much changes. On current presents in mentation BP 100/59, heart rate 95 bpm EKG shows sinus tachycardia with right bundle branch block Pertinent labs: Hb 14, BUN 33, creatinine 0.8, troponins are elevated at 0.07, 0.08, essentially flat pattern, likely from hypoxemia, WBC 18 NT-proBNP 22 500. Last admission it was 18,500 Home medications Lasix 40 twice daily, aspirin, metoprolol 12.5 daily, sildenafil 20 3 times daily Last echo from July 2024 shows an EF of 55%, severe RV dilatation with signs of RV pressure overload with RVSP of 67 mmHg Moderate RV hypokinesia Right heart catheterization showed mean PA pressure of 47, wedge of 15 mmHg. REVIEW OF SYSTEMS: 14 point review of system is negative except what is mentioned above in HPI. PHYSICAL EXAMINATION: Neck: Brisk carotid upstroke, no jugular venous distention. Lungs: On high flow nasal cannula, mild crackles audible, diminished air entry in right lower lung bee with mild wheezing noticed Heart: Regular rate and rhythm, S1-S2, , no murmur or rub. Abdomen: Soft nontender, positive bowel sounds. Extremities: No edema, intact distal pulses. Neuro: Alert, oritented, no focal deficits. Detailed neuro exam was not performed. ASSESSMENT: # Acute on chronic hypoxic respiratory failure. Chronically on 4 to 5 L # Type II NSTEMI because of hypoxemia # Concerns of right lower lobe pneumonia, likely healthcare associated pneumonia # Acute COPD exacerbation # Severe pulmonary hypertension, WHO class III # Mild nonobstructive CAD # Infrarenal aortic aneurysm # Essential hypertension, dyslipidemia, former tobacco smoker # PAD with carotid disease PLAN: Continue aspirin, Lipitor, Continue metoprolol 12.5 mg daily, Lasix 40 p.o. twice daily Aldactone 25 daily, discontinue potassium Continue sildenafil 20 mg 3 times daily which she takes for pulmonary hypertension as her home medication. Cannot add amlodipine 2.5 because of low borderline blood pressure. Supplement oxygen Prognosis overall guarded because of advanced group 3 pulmonary hypertension Eamon Jacome MD, [facility], [facility] Thank you for allowing [facility] to participate in this patient's care. Feel free to reach out in case of any followup questions. Past Medical History Past Medical History: COPD, Hyperlipidemia, Hypertension, Respiratory Disorder Additional Past Medical History / Comment(s): Aortic aneurysm. Pulmonary Hypertension History of Any Multi-Drug Resistant Organisms: None Reported Past Surgical History: Breast Surgery, Hysterectomy Additional Past Surgical History / Comment(s): Knee replacement. Wrist surgery. Cataract surgery Past Anesthesia/Blood Transfusion Reactions: No Reported Reaction Past Psychological History: Depression Smoking Status: Former smoker Past Alcohol Use History: None Reported Past Drug Use History: None Reported - Past Family History Mother Family Medical History: Cancer, Diabetes Mellitus Additional Family Medical History / Comment(s): from lung cancer Father Additional Family Medical History / Comment(s): from brain aneurysm Medications and Allergies Home Medications Medication Instructions Recorded Confirmed Type Atorvastatin [Lipitor] 40 mg PO HS 08/06/24 01/29/25 History Cetirizine HCl [Zyrtec] 10 mg PO DAILY 08/06/24 01/29/25 History Ergocalciferol [Vitamin D2 (1250 1,250 mcg PO MO 08/06/24 01/29/25 History Mcg = [id number] Iu)] Fluticasone/Umeclidin/Vilanter 1 puff INHALATION RT-DAILY 08/06/24 01/29/25 History [Trelegy Ellipta 200-62.5-25] Ipratropium-Albuterol Nebulize 3 ml INHALATION RT-Q4H 08/06/24 01/29/25 History [Duoneb 0.5 mg-3 mg/3 ml Soln] Ipratropium/Albuter 20-100Mcg 1 puff INHALATION RT-QID 08/06/24 01/29/25 History [Combivent Respimat 20-100Mcg Inhaler] Sertraline [Zoloft] 50 mg PO DAILY 08/06/24 01/29/25 History guaiFENesin [Mucinex] 1,200 mg PO BID #30 tab 08/13/24 01/29/25 Rx Metoprolol Succinate (ER) [Toprol 12.5 mg PO DAILY #60 tab 09/25/24 01/29/25 Rx XL] Albuterol Sulfate [Ventolin HFA] 2 puff INHALATION RT-Q4H PRN 10/24/24 01/29/25 History Fludrocortisone [Florinef] 0.1 mg PO DAILY #0 tab 12/17/24 01/29/25 Rx Acetaminophen Tab [Tylenol] 650 mg PO Q6HR PRN 01/12/25 01/29/25 History Aspirin 81 mg PO DAILY 01/12/25 01/29/25 History Dicyclomine [Bentyl] 20 mg PO BID 01/12/25 01/29/25 History Omeprazole 40 mg PO DAILY 01/12/25 01/29/25 History Sildenafil Citrate 20 mg PO TID 01/12/25 01/29/25 History Furosemide [Lasix] 40 mg PO BID@0900,1600 tab 01/18/25 01/29/25 Rx Benzonatate [Tessalon Perle] 200 mg PO TID 01/29/25 01/29/25 History Ipratropium-Albuterol Nebulize 3 ml INHALATION RT-Q6H PRN 01/29/25 01/29/25 History [Duoneb 0.5 mg-3 mg/3 ml Soln] Loperamide [Imodium] 2 mg PO Q6H PRN 01/29/25 01/29/25 History Potassium Chloride ER [K-Dur 20] 20 meq PO DAILY 01/29/25 01/29/25 History predniSONE 10 mg PO DAILY 01/29/25 01/29/25 History Allergies Allergy/AdvReac Type Severity Reaction Status Date / Time levofloxacin [From Levaquin] Allergy Unknown Verified 01/29/25 18:01 tetracycline Allergy Unknown Verified 01/29/25 18:01 Physical Exam Vitals: Vital Signs Temp Pulse Pulse Pulse Resp BP BP 01/31/25 08:46 111 H 24 01/31/25 08:35 112 H 27 H 01/31/25 08:15 98.4 F 118 H 24 100/59 01/31/25 03:23 97 25 H 103/70 01/31/25 03:13 01/30/25 23:34 101 H 24 99/67 01/30/25 23:24 01/30/25 23:19 01/30/25 21:18 98.2 F 103 H 26 H 103/70 01/30/25 18:17 98.3 F 102 H 29 H 113/71 01/30/25 17:09 112 H 01/30/25 16:49 120 H 33 H 104/80 01/30/25 15:50 108 H 01/30/25 15:40 106 H 01/30/25 13:22 104 H 16 104/80 01/30/25 11:46 98 01/30/25 11:32 99 Pulse Ox FiO2 01/31/25 08:46 01/31/25 08:35 85 L 60 01/31/25 08:15 88 L 62 01/31/25 03:23 96 62 01/31/25 03:13 62 01/30/25 23:34 96 60 01/30/25 23:24 60 01/30/25 23:19 60 01/30/25 21:18 95 60 01/30/25 18:17 97 60 01/30/25 17:09 01/30/25 16:49 88 L 01/30/25 15:50 01/30/25 15:40 60 01/30/25 13:22 88 L 01/30/25 11:46 01/30/25 11:32 60 Intake and Output 01/30/25 01/31/25 01/31/25 22:59 06:59 14:59 Intake Total 50 Balance 50 Intake: Oral 50 Other: Voiding Method Indwelling Catheter Indwelling Catheter Indwelling Catheter # Bowel Movements 1 Weight 59.421 kg 53.5 kg Results 01/31/25 06:56 01/31/25 06:56 Cardiac Enzymes 01/30/25 01/30/25 01/30/25 Range/Units 11:55 14:53 19:22 AST (14-36) U/L Troponin I 0.052 H* 0.070 H* 0.086 H* (0.000-0.034) ng/mL 01/31/25 Range/Units 06:56 AST 32 (14-36) U/L Troponin I (0.000-0.034) ng/mL CBC 01/31/25 Range/Units 06:56 WBC 18.44 H (4.50-10.00) 10*3/uL RBC 3.98 L (4.10-5.20) 10*6/uL Hgb 10.1 L (12.0-15.0) g/dL Hct 33.6 L (37.2-46.3) % Plt Count 132 L (140-440) 10*3/uL Comprehensive Metabolic Panel 01/31/25 Range/Units 06:56 Sodium 138 (137-145) mmol/L Potassium 3.7 (3.5-5.1) mmol/L Chloride 104 (98-107) mmol/L Carbon Dioxide 23 (22-30) mmol/L BUN 33 H (7-17) mg/dL Creatinine 0.83 (0.52-1.04) mg/dL Glucose 196 H (74-99) mg/dL Calcium 8.5 (8.4-10.2) mg/dL AST 32 (14-36) U/L ALT 19 (4-34) U/L Alkaline Phosphatase 79 (38-126) U/L Total Protein 5.4 L (6.3-8.2) g/dL Albumin 3.1 L (3.5-5.0) g/dL Current Medications Generic Name Dose Route Start Last Admin Trade Name Freq PRN Reason Stop Dose Admin Acetaminophen 650 mg 01/29/25 22:49 Acetaminophen Tab 325 Mg Tab PO Q6HR PRN Fever and/ or Pain Albuterol/Ipratropium 3 ml 01/29/25 18:25 Ipratropium-Albuterol 3 Ml Neb INHALATION RT-Q2H PRN Shortness Of Breath Or Wheezing Albuterol/Ipratropium 3 ml 01/31/25 12:00 Ipratropium-Albuterol 3 Ml Neb INHALATION RT-Q4H ILA Aspirin 81 mg 01/30/25 09:00 01/31/25 08:18 Aspirin 81 Mg PO 81 mg DAILY ILA Administration Atorvastatin Calcium 40 mg 01/30/25 21:00 01/30/25 21:12 Atorvastatin 40 Mg Tab PO 40 mg HS ILA Administration Azithromycin 500 mg 01/30/25 09:00 01/31/25 08:18 Azithromycin 500 Mg Tab PO 02/01/25 09:01 500 mg DAILY ILA Administration Protocol Benzonatate 200 mg 01/29/25 22:49 01/31/25 06:23 Benzonatate 100 Mg Cap PO 200 mg TID PRN Administration Cough Budesonide 1 mg 01/30/25 20:00 01/31/25 08:35 Budesonide 1 Mg/2 Ml Nebu INHALATION 1 mg RT-BID ILA Administration Dextrose/Water 25 ml 01/30/25 11:43 Dextrose 50% Syringe 50 Ml IVP PER PROTOCOL PRN Hypoglycemia Protocol Dextrose/Water 50 ml 01/30/25 11:43 Dextrose 50% Syringe 50 Ml IVP PER PROTOCOL PRN Hypoglycemia Protocol Enoxaparin Sodium 40 mg 01/31/25 09:00 01/31/25 08:18 Enoxaparin 40 Mg/0.4 Ml Syringe SQ 40 mg DAILY ILA Administration Formoterol Fumarate 20 mcg 01/30/25 20:00 01/31/25 08:35 Formoterol Fumarate 20 Mcg/2 Ml Nebu INHALATION 20 mcg RT-BID ILA Administration Furosemide 40 mg 01/30/25 09:00 01/31/25 08:19 Furosemide 40 Mg Tab PO 40 mg BID@0900,1600 ILA Administration Cefepime HCl 2 gm/ Sodium 100 mls @ 25 mls/hr 01/30/25 09:00 01/30/25 23:27 Chloride IVPB 01/31/25 13:00 25 mls/hr Q8HR ILA Administration Vancomycin HCl 1,000 mg/ 250 mls @ 125 mls/hr 01/31/25 04:00 01/31/25 04:47 Sodium Chloride IVPB 125 mls/hr Q16H ILA Administration Cefepime HCl 2 gm/ Sodium 100 mls @ 25 mls/hr 01/31/25 21:00 Chloride IVPB Q12HR ILA Insulin Human Lispro 0 unit 01/30/25 12:30 01/31/25 06:20 Insulin Lispro (Humalog) 100 Unit/Ml 10 Ml Vl SQ 4 unit ACHS ILA Administration Protocol Loratadine 10 mg 01/30/25 09:00 01/31/25 08:19 Loratadine 10 Mg Tab PO 10 mg DAILY ILA Administration Lorazepam 1 mg 01/29/25 21:12 01/31/25 05:11 Lorazepam 1 Mg/0.5 Ml Vial IV 1 mg Q4HR PRN Administration Anxiety Methylprednisolone Sodium Succinate 60 mg 01/30/25 00:00 01/31/25 06:20 Methylprednisolone Sod Succi 125 Mg/2 Ml Vial IV 60 mg Q6HR ILA Administration Metoprolol Succinate 12.5 mg 01/30/25 09:00 01/31/25 08:18 Metoprolol Succinate (Er) 25 Mg Tab.Er.24h PO 12.5 mg DAILY ILA Administration Naloxone HCl 0.2 mg 01/29/25 18:25 Naloxone 0.4 Mg/Ml 1 Ml Vial IVP Q2M PRN Opioid Reversal Sertraline HCl 50 mg 01/30/25 09:00 01/31/25 08:19 Sertraline 50 Mg Tab PO 50 mg DAILY ILA Administration Sildenafil Citrate 20 mg 01/30/25 09:00 01/31/25 08:18 Sildenafil 20 Mg Tab PO 20 mg TID ILA Administration Spironolactone 12.5 mg 01/31/25 11:15 Spironolactone 25 Mg Tab PO DAILY ILA Intake and Output 01/30/25 01/31/25 01/31/25 22:59 06:59 14:59 Intake Total 50 Balance 50 Intake: Oral 50 Other: Voiding Method Indwelling Catheter Indwelling Catheter Indwelling Catheter # Bowel Movements 1 Weight 59.421 kg 53.5 kg 01/31/25 06:56 01/31/25 06:56
[2025-01-31] MEDS: IPRATROPIUM-ALBUTEROL 3 ML NEB INHALATION SCH (11:37)
[2025-01-31 11:38] LABS: Glucose,Whole Blood 141 mg/dL (70-110)
[2025-01-31] MEDS: SPIRONOLACTONE 25 MG TAB PO SCH (12:51)
[2025-01-31 13:23] LABS: ABG HCO3 26 mmol/L (21-25); ABG PCO2 39 mmHg (35-45); ABG PH 7.43 (7.35-7.45); ABG PO2 76 mmHg (83-108); ABG TCO2 27 mmol/L (19-24)
--- NOTE | 2025-01-31 14:25 | P.PN ---
Subjective Progress Note Date: 01/31/25 This is a 74-year-old female patient who has been chronically ill with chronic obstructive pulmonary disease, interstitial fibrosis, pulmonary hypertension, cor pulmonale, chronic hypoxemic respiratory failure and has had multiple hospitalizations. Just recently [facility] from [facility] She was brought back in again yesterday with shortness of breath and hypoxemia. Chest x-ray shows chronic changes with possible right lower lobe airspace disease. White count 20.8. Hemoglobin 12.3. Platelets 135. Sodium 140. Potassium 4.4. Bicarb 28. BUN 27. Creatinine 0.75. Glucose 194. proBNP 22,500. She is seen today in consultation in the emergency department. She is currently sitting up on a stretcher. Currently on BiPAP 14/7 and 80% FiO2. She is feeling a bit better now than she was feeling earlier. The patient is seen today January 31, 2025 in follow-up on the selective care unit. She is currently resting in bed. Awake and alert in no acute distress. She is still requiring Airvo high flow oxygen at 60 L and 70% FiO2 to maintain O2 saturations in the 90s. Blood culture reveals no growth thus far. White count 18.4. Hemoglobin 10.1. Platelets 132. Sodium 138. Potassium 3.7. Bicarb 23. BUN 33. Creatinine 0.83. Glucose 196. Arterial blood gases revealed a PO2 of 76, [id number] and a pH of 7.43 and 70% FiO2. She remains on DuoNeb inhalations, Pulmicort and Perforomist inhalations, IV Solu-Medrol. Antibiotics in the form of vancomycin, Zithromax and cefepime. Procalcitonin was 2.08. Objective - Vital Signs Vital signs: Vital Signs Temp 98.4 F 01/31/25 08:15 Pulse 100 01/31/25 11:47 Resp 20 01/31/25 11:47 BP 100/59 01/31/25 08:15 Pulse Ox 98 01/31/25 11:39 FiO2 70 01/31/25 11:39 Intake & Output 01/30/25 01/31/25 01/31/25 18:59 06:59 18:59 Intake Total 50 Balance 50 Weight 59.421 kg 53.5 kg Intake: Oral 50 Other: Voiding Method Indwelling Catheter Indwelling Catheter Indwelling Catheter # Bowel Movements 1 - Exam GENERAL EXAM: Alert, weak 74-year-old female, on Airvo high flow oxygen at 60 L and 70% FiO2, comfortable in no apparent distress. HEAD: Normocephalic. EYES: Normal reaction of pupils, equal size. NOSE: Clear with pink turbinates. THROAT: No erythema or exudates. NECK: No masses, no JVD. CHEST: No chest wall deformity. LUNGS: Equal air entry with bilateral scattered rhonchi, crackles in the right lung base. CVS: S1 and S2 normal with no audible murmur, regular rhythm. ABDOMEN: No hepatosplenomegaly, normal bowel sounds, no guarding or rigidity. SPINE: No scoliosis or deformity SKIN: No rashes CENTRAL NERVOUS SYSTEM: No focal deficits, tone is normal in all 4 extremities. EXTREMITIES: There is no peripheral edema. No clubbing, no cyanosis. Peripheral pulses are intact. - Labs CBC & Chem 7: 01/31/25 06:56 01/31/25 06:56 Labs: Abnormal Lab Results - Last 24 Hours (Table) 01/30/25 01/30/25 01/30/25 Range/Units 14:53 19:22 20:25 WBC (4.50-10.00) 10*3/uL RBC (4.10-5.20) 10*6/uL Hgb (12.0-15.0) g/dL Hct (37.2-46.3) % MCH (27.0-32.0) pg MCHC (32.0-37.0) g/dL Plt Count (140-440) 10*3/uL Immature Gran # (0.00-0.04) 10*3/uL Neutrophils # (1.80-7.70) 10*3/uL Lymphocytes # (0.90-5.00) 10*3/uL Eosinophils # (0.04-0.35) 10*3/uL ABG pO2 (83-108) mmHg ABG HCO3 (21-25) mmol/L ABG Total CO2 (19-24) mmol/L Hemoglobin (11.4-16.0) gm/dL BUN (7-17) mg/dL Glucose (74-99) mg/dL POC Glucose (mg/dL) 172 H (70-110) mg/dL Troponin I 0.070 H* 0.086 H* (0.000-0.034) ng/mL Total Protein (6.3-8.2) g/dL Albumin (3.5-5.0) g/dL 01/31/25 01/31/25 01/31/25 Range/Units 06:06 06:56 06:56 WBC 18.44 H (4.50-10.00) 10*3/uL RBC 3.98 L (4.10-5.20) 10*6/uL Hgb 10.1 L (12.0-15.0) g/dL Hct 33.6 L (37.2-46.3) % MCH 25.4 L (27.0-32.0) pg MCHC 30.1 L (32.0-37.0) g/dL Plt Count 132 L (140-440) 10*3/uL Immature Gran # 0.22 H (0.00-0.04) 10*3/uL Neutrophils # 17.30 H (1.80-7.70) 10*3/uL Lymphocytes # 0.46 L (0.90-5.00) 10*3/uL Eosinophils # 0.00 L (0.04-0.35) 10*3/uL ABG pO2 (83-108) mmHg ABG HCO3 (21-25) mmol/L ABG Total CO2 (19-24) mmol/L Hemoglobin (11.4-16.0) gm/dL BUN 33 H (7-17) mg/dL Glucose 196 H (74-99) mg/dL POC Glucose (mg/dL) 203 H (70-110) mg/dL Troponin I (0.000-0.034) ng/mL Total Protein 5.4 L (6.3-8.2) g/dL Albumin 3.1 L (3.5-5.0) g/dL 01/31/25 01/31/25 Range/Units 11:36 13:17 WBC (4.50-10.00) 10*3/uL RBC (4.10-5.20) 10*6/uL Hgb (12.0-15.0) g/dL Hct (37.2-46.3) % MCH (27.0-32.0) pg MCHC (32.0-37.0) g/dL Plt Count (140-440) 10*3/uL Immature Gran # (0.00-0.04) 10*3/uL Neutrophils # (1.80-7.70) 10*3/uL Lymphocytes # (0.90-5.00) 10*3/uL Eosinophils # (0.04-0.35) 10*3/uL ABG pO2 76 L (83-108) mmHg ABG HCO3 26 H (21-25) mmol/L ABG Total CO2 27 H (19-24) mmol/L Hemoglobin 10.0 L (11.4-16.0) gm/dL BUN (7-17) mg/dL Glucose (74-99) mg/dL POC Glucose (mg/dL) 141 H (70-110) mg/dL Troponin I (0.000-0.034) ng/mL Total Protein (6.3-8.2) g/dL Albumin (3.5-5.0) g/dL Microbiology - Last 24 Hours (Table) 01/29/25 18:54 Blood Culture - Preliminary Blood Assessment and Plan Assessment: Acute on chronic hypoxemic respiratory failure, currently requiring BiPAP 14/7 and 80% FiO2, chest x-ray showing possible right lower lobe pneumonia and fluid volume overload. NT proBNP 22,500. Acute COPD exacerbation requiring Airvo high flow oxygen currently at 60 L and 70% FiO2 Acute on chronic hypoxemic respiratory failure secondary to above and possible early right lower lobe pneumonia. Procalcitonin 2.08 Chronic hypoxemic respiratory failure, typically wears 4 to 5 L/min nasal cannula at home Pulmonary hypertension with RV dysfunction and cor pulmonale. echocardiogram from 08/07/2024 showed a preserved LV function, nevertheless, the patient had severe pulmonary hypertension. RV was severely dilated and estimated PA pressure was 67. She had also moderate TR. Right-sided heart catheterization revealed a mean pulmonary artery pressure of 47 mmHg and pulmonary capillary wedge pressure of 15 suggestive of pre-capillary pulmonary hypertension Chronic bilateral lower extremity edema Acute leukocytosis Elevated troponins, likely secondary to supply/demand mismatch COPD/emphysema History of nonobstructive coronary artery disease Infrarenal abdominal aortic aneurysm, 4.7 cm follows with vascular surgery outpatient Systemic hypertension History of hyperlipidemia Peripheral vascular disease and carotid artery stenosis Former tobacco smoker Anxiety/depression Poor overall functional performance based on the above-mentioned multiple comorbidities Plan: The patient was seen and evaluated Labs and medications reviewed Currently requiring Airvo high flow oxygen Currently at 60 L and 70% FiO2 Titrate down the FiO2 as tolerated Continue DuoNeb inhalations Continue Pulmicort and Perforomist inhalations Continue IV Solu-Medrol Continue vancomycin and cefepime Lovenox for DVT prophylaxis Continue diuretics Overall prognosis is guarded We will continue to follow I have personally seen and examined the patient, performed the documentation and the assessment and plan as written. Number of minutes spent on the visit: 10 Dictation was produced using [employer] dictation software. Please excuse any grammatical, word or spelling errors.
--- NOTE | 2025-01-31 15:08 | CT ---
EXAMINATION TYPE: CT brain wo con DATE OF EXAM: 01/31/2025 3:00 PM COMPARISON: 12/11/2024 CLINICAL INDICATION: Female, 74 years old with history of confusion, Confusion. TECHNIQUE: CT of the brain is performed utilizing 3 mm thick sections through the posterior fossa and 3 mm thick sections through the remaining calvarium. Study is performed within 24 hours of arrival to the hospital. Contrast used: mL of , (none if empty) CT DLP: 1058 mGycm, Automated exposure control for dose reduction was used. FINDINGS: No abnormal hyperdensity is present to suggest an acute intracranial hemorrhage. No mass lesion is evident. No acute infarcts are evident. Ventricles and sulci are mildly prominent for the patient age. Paranasal sinuses and mastoid air cells within the [id number] are clear. IMPRESSION: 1. No acute intracranial process. Follow up MRI can be performed as clinically indicated. [facility], , 01/31/2025 3:06 PM
--- NOTE | 2025-01-31 15:33 | P.PN ---
Subjective Progress Note Date: 01/31/25 74 year old F with PMH of COPD on 4L home O2, pulmonary hypertension, AAA presented to the ED for progressively worsening shortness of breath. Vitals on admission T 97.5, HR 110, RR 36, BP 116/80, O2 saturation of 87% on 15 L non rebreather. EKG showed sinus tachycardia with PVCs and incomplete RBBB rate of 104 and QTc of 417 ms CXR showed RLL airspace opacities. Venous duplex neg for DVT. Labs on admission showed WBC 23.11, APTT 21.5, K 3.1, BUN 25, glu 170, Lactic acid 2.8-2, BNP 20510, Trop 0.062, 0.052, 0.07, 0.086. Patient was admitted for acute on chronic hypoxic respiratory failure secondary to PNA. 01/31 Patient was seen and examined. Family at bedside. Patient repeating words and appears somnolent. CBC and BMP significant for WBC 18.44, RBC 3.98, Hg 10.1, Hct 33.6, Plt 132, BUN 33, glu 196, alb 3.1. Procal 2.08. General: non toxic, no distress, appears at stated age Derm: warm, dry Head: atraumatic, normocephalic, symmetric Eyes: EOMI, no lid lag, anicteric sclera Mouth: no lip lesion, mucus membranes moist Cardiovascular: S1S2 reg, no murmur Lungs: Decreased BS bilateral, no rhonchi, no rales , no accessory muscle use Ext: no gross muscle atrophy, no edema, no contractures Neuro: no focal neuro deficits Psych: Somnolent Based on my assessment of this patient, this patient meets a high complexity level of care. Acute metabolic encephalopathy: Likely due to below. Obtain CT brain and CTA head and neck to rule out CVA. Obtain ABG. Obtain UA reflex to UCx. Sepsis and Acute on chronic hypoxic respiratory failure currently on 60 L HFNC with home O2 of 4 L: Procal 2.08. Continue Vancomycin dosed per pharmacy and Cefepime 2g IV BID. DuoNeb Q4H scheduled + Q2H PRN. Pulmicort 1 mg INH BID. Performist 20 mcg INH BID. Tessalon 200 mg PO TID PRN. Solumedrol 60 mg IV Q6H. Sputum Cx, Legionella Ag, COVID/RSV/Flu ordered. Telemetry monitoring. Pulmonary on board. Diastolic CHF: Not in acute exacerbation. Echo 07/2024 shows EF 55% with G1DD. Lasix 40 mg PO BID. Cardiology on board. Troponin elevation likely type II NSTEMI with history of CAD: ASA 81 mg PO QD. Lipitor 40 mg PO QD. Metoprolol 12.5 mg PO QD. Cardiology on board. Group 3 pulmonary hypertension: Sildenafil 20 mg PO TID. HTN: Metoprolol 12.5 mg PO QD. Aldactone 12.5 mg PO QD. Depression: Sertraline 50 mg PO QD. AAA: Outpatient follow up for routine maintenance. CODE STATUS: FULL CODE DVT Prophylaxis: Lovenox SQ GI Prophylaxis: Protonix PO Designated medical POA if patient is not able to make medical decisions for themselves: I have reviewed the following intelligence consultant notes: Pulmonary, Cardiology. I have reviewed the results of the following tests: CBC, BMP, Pro-damaso. I have ordered the following tests: CT brain, CTA head and neck, ABG, UA/UCx, COVID/RSV/Flu. I have discussed the care of this patient with the following independent historian: RN. Ron. I have independently interpreted the following test below: I have discussed the management of this patient with the following physician: Objective - Vital Signs Vital signs: Vital Signs Temp 98.4 F 01/31/25 08:15 Pulse 100 01/31/25 11:47 Resp 20 01/31/25 11:47 BP 100/59 01/31/25 08:15 Pulse Ox 98 01/31/25 11:39 FiO2 70 01/31/25 15:08 Intake & Output 01/30/25 01/31/25 01/31/25 18:59 06:59 18:59 Intake Total 50 Balance 50 Weight 59.421 kg 53.5 kg Intake: Oral 50 Other: Voiding Method Indwelling Catheter Indwelling Catheter Indwelling Catheter # Bowel Movements 1 - Labs CBC & Chem 7: 01/31/25 06:56 01/31/25 06:56 Labs: Abnormal Lab Results - Last 24 Hours (Table) 01/30/25 01/30/25 01/30/25 Range/Units 14:53 19:22 20:25 WBC (4.50-10.00) 10*3/uL RBC (4.10-5.20) 10*6/uL Hgb (12.0-15.0) g/dL Hct (37.2-46.3) % MCH (27.0-32.0) pg MCHC (32.0-37.0) g/dL Plt Count (140-440) 10*3/uL Immature Gran # (0.00-0.04) 10*3/uL Neutrophils # (1.80-7.70) 10*3/uL Lymphocytes # (0.90-5.00) 10*3/uL Eosinophils # (0.04-0.35) 10*3/uL ABG pO2 (83-108) mmHg ABG HCO3 (21-25) mmol/L ABG Total CO2 (19-24) mmol/L Hemoglobin (11.4-16.0) gm/dL BUN (7-17) mg/dL Glucose (74-99) mg/dL POC Glucose (mg/dL) 172 H (70-110) mg/dL Troponin I 0.070 H* 0.086 H* (0.000-0.034) ng/mL Total Protein (6.3-8.2) g/dL Albumin (3.5-5.0) g/dL 01/31/25 01/31/25 01/31/25 Range/Units 06:06 06:56 06:56 WBC 18.44 H (4.50-10.00) 10*3/uL RBC 3.98 L (4.10-5.20) 10*6/uL Hgb 10.1 L (12.0-15.0) g/dL Hct 33.6 L (37.2-46.3) % MCH 25.4 L (27.0-32.0) pg MCHC 30.1 L (32.0-37.0) g/dL Plt Count 132 L (140-440) 10*3/uL Immature Gran # 0.22 H (0.00-0.04) 10*3/uL Neutrophils # 17.30 H (1.80-7.70) 10*3/uL Lymphocytes # 0.46 L (0.90-5.00) 10*3/uL Eosinophils # 0.00 L (0.04-0.35) 10*3/uL ABG pO2 (83-108) mmHg ABG HCO3 (21-25) mmol/L ABG Total CO2 (19-24) mmol/L Hemoglobin (11.4-16.0) gm/dL BUN 33 H (7-17) mg/dL Glucose 196 H (74-99) mg/dL POC Glucose (mg/dL) 203 H (70-110) mg/dL Troponin I (0.000-0.034) ng/mL Total Protein 5.4 L (6.3-8.2) g/dL Albumin 3.1 L (3.5-5.0) g/dL 01/31/25 01/31/25 Range/Units 11:36 13:17 WBC (4.50-10.00) 10*3/uL RBC (4.10-5.20) 10*6/uL Hgb (12.0-15.0) g/dL Hct (37.2-46.3) % MCH (27.0-32.0) pg MCHC (32.0-37.0) g/dL Plt Count (140-440) 10*3/uL Immature Gran # (0.00-0.04) 10*3/uL Neutrophils # (1.80-7.70) 10*3/uL Lymphocytes # (0.90-5.00) 10*3/uL Eosinophils # (0.04-0.35) 10*3/uL ABG pO2 76 L (83-108) mmHg ABG HCO3 26 H (21-25) mmol/L ABG Total CO2 27 H (19-24) mmol/L Hemoglobin 10.0 L (11.4-16.0) gm/dL BUN (7-17) mg/dL Glucose (74-99) mg/dL POC Glucose (mg/dL) 141 H (70-110) mg/dL Troponin I (0.000-0.034) ng/mL Total Protein (6.3-8.2) g/dL Albumin (3.5-5.0) g/dL Microbiology - Last 24 Hours (Table) 01/29/25 18:54 Blood Culture - Preliminary Blood
--- NOTE | 2025-01-31 15:46 | CT ---
EXAMINATION TYPE: CT angio head neck DATE OF EXAM: 01/31/2025 3:17 PM COMPARISON: None. CLINICAL INDICATION: Female, 74 years old with history of confusion, Confusion. TECHNIQUE: CTA scan is performed with axial images are obtained, coronal and sagittal reformatted burton ges are reviewed. MIP images created on a separate workstation and submitted for review. 3-D reconstr ucted images are created on an independent workstation and reviewed. Source images are reviewed. ARMEN CET criteria was used in interpretation of this exam? Contrast used:65 ml mL of Isovue 370 with IV Contrast, (none if empty) Oral contrast used: (none if empty) CT DLP: 334.8 mGycm, Automated exposure control for dose reduction was used. FINDINGS: Carotid/Vascular Structures: There is a 3 vessel arch. Common carotid arteries bifurcate into internal and external carotid arteries. There is a 55% moderat e narrowing of the left internal carotid artery origin. Atheromatous plaquing is present at the right internal carotid artery origin without significant flow-limiting stenosis. Vertebral arteries and in ternal carotid arteries are patent to the skull base. Vertebral arteries are codominant. Cervical of [place]: Vertebral basilar system appears normal. Posterior cerebral vasculature is unrema rkable. Internal carotid arteries bifurcate normally into A1 and M1 segments. A2 segments are normal. The anterior communicating artery is patent. The right posterior communicating artery is patent. The left posterior communicating artery is absent. IMPRESSION: 1. Moderate narrowing of 55% at the left internal carotid artery origin. 2. Mild plaquing without significant flow-limiting stenosis right internal carotid artery origin. 3. Normal [place] [facility], , 01/31/2025 3:44 PM
[2025-01-31 16:33] LABS: Glucose,Whole Blood 168 mg/dL (70-110)
[2025-01-31 18:03] LABS: RSV Not Detected (Not Detectd)
[2025-01-31 18:56] LABS: Bilirubin,Urine Negative (Negative); Blood,Urine Large (Negative); Color,Urine Yellow; Glucose,Urine (UA) Negative (Negative); Hyaline Casts,Urine 4 /lpf (0-2); Ketones,Urine Negative (Negative); Leukocyte Esterase,Urine Negative (Negative); Mucus,Urine Rare /hpf; Nitrite,Urine Negative (Negative); PH, Urine 6.0 (5.0-8.0); Protein,Urine Trace (Negative); RBC,Urine >182 /hpf (0-5); Specific Gravity,Urine 1.023 (1.001-1.035); Squamous Epithelial Cell,Urine 1 /hpf (0-4); Urobilinogen,Urine <2.0 mg/dL (<2.0); WBC,Urine 13 /hpf (0-5)
[2025-01-31] MEDS ORDERED: BENZOCAINE/MENTHOL LOZENG 1 EACH LOZENGE MUCOUS MEM PRN (19:31)
[2025-01-31 20:06] LABS: Glucose,Whole Blood 200 mg/dL (70-110)
[2025-01-31] MEDS: CEFEPIME 2 GM in SODIUM CHLORIDE 0.9% 100 ML IVPB SCH (21:48)
[2025-02-01 06:08] LABS: Glucose,Whole Blood 183 mg/dL (70-110)
[2025-02-01 08:12] LABS: Basophils # (A) 0.02 10*3/uL (0.00-0.10); Basophils % (A) 0.2 %; Eosinophils # (A) 0.00 10*3/uL (0.04-0.35); Eosinophils % (A) 0.0 %; HCT 33.2 % (37.2-46.3); HGB 10.0 g/dL (12.0-15.0); Immature Platelet Fraction 5.3 % (1.1-6.1); Lymphocytes # (A) 0.46 10*3/uL (0.90-5.00); Lymphocytes % (A) 3.6 %; MCH 25.5 pg (27.0-32.0); MCHC 30.1 g/dL (32.0-37.0); MCV 84.7 fL (80.0-97.0); Monocytes # (A) 0.25 10*3/uL (0.20-1.00); Monocytes % (A) 2.0 %; Neutrophils # (A) 11.88 10*3/uL (1.80-7.70); Neutrophils % (A) 93.0 %; Platelet Count 136 10*3/uL (140-440); RBC 3.92 10*6/uL (4.10-5.20); RDW 19.3 % (11.5-14.5); WBC 12.76 10*3/uL (4.50-10.00)
[2025-02-01 08:26] LABS: ALT 24 U/L (4-34); AST 32 U/L (14-36); African American GFR (CKD) 70 (>60 ml/min/1.73 sqM); Albumin 3.3 g/dL (3.5-5.0); Alkaline Phosphatase 85 U/L (38-126); Anion Gap 8 mmol/L; Blood Urea Nitrogen 35 mg/dL (7-17); Calcium 8.7 mg/dL (8.4-10.2); Carbon Dioxide 26 mmol/L (22-30); Chloride 105 mmol/L (98-107); Glucose 169 mg/dL (74-99); Non-African American GFR(CKD) 61 (>60 ml/min/1.73 sqM); Potassium 3.9 mmol/L (3.5-5.1); Sodium 139 mmol/L (137-145); Total Protein 5.7 g/dL (6.3-8.2)
[2025-02-01 08:31] LABS: African American GFR (CKD) 68 (>60 ml/min/1.73 sqM); Non-African American GFR(CKD) 59 (>60 ml/min/1.73 sqM)
[2025-02-01 11:46] LABS: Glucose,Whole Blood 180 mg/dL (70-110)
[2025-02-01 12:21] VITALS: BMI 17.9
--- NOTE | 2025-02-01 14:09 | P.PN ---
Subjective Progress Note Date: 02/01/25 74 year old F with PMH of COPD on 4L home O2, pulmonary hypertension, AAA presented to the ED for progressively worsening shortness of breath. Vitals on admission T 97.5, HR 110, RR 36, BP 116/80, O2 saturation of 87% on 15 L non rebreather. EKG showed sinus tachycardia with PVCs and incomplete RBBB rate of 104 and QTc of 417 ms CXR showed RLL airspace opacities. Venous duplex neg for DVT. Labs on admission showed WBC 23.11, APTT 21.5, K 3.1, BUN 25, glu 170, Lactic acid 2.8-2, BNP 11131, Trop 0.062, 0.052, 0.07, 0.086. Patient was admitted for acute on chronic hypoxic respiratory failure secondary to PNA. Started on Vancomycin and Cefepime along with bronchodilators and steroids. Patient with altered mentation on 01/31, CT brain negative, CTA head and neck 55% L ICA stenosis. 02/01 Patient was seen and examined. Appears lethargic. She is on 60L HFNC saturating low 90s. CBC and BMP significant for WBC 12.76, RBC 3.92, Hg 10, Hct 33.2, Plt 136, BUN 35, glu 169, alb 3.3. UA neg LE or nitrite. ABG shows pH 7.43, pCO2 39, pO2 76. COVID, RSV, Flu neg. Discussed with daughter extensively regarding course of action. If patient continues to worsen, she may need to be intubated. She will likely be a very difficult extubation which may lead to trach/PEG. Previously, she has had a hard time tolerating BiPAP. Daughter to discuss with her sibilings. General: non toxic, no distress, appears at stated age Derm: warm, dry Head: atraumatic, normocephalic, symmetric Eyes: EOMI, no lid lag, anicteric sclera Mouth: no lip lesion, mucus membranes moist Cardiovascular: S1S2 tachy, no murmur Lungs: Rhonchi bilaterally, no rales , no accessory muscle use Ext: no gross muscle atrophy, no edema, no contractures Neuro: no focal neuro deficits Psych: Somnolent Based on my assessment of this patient, this patient meets a high complexity level of care. Acute metabolic encephalopathy: Likely due to below. CT brain and CTA head and neck negative for CVA. ABG as above. UA as above. Sepsis and Acute on chronic hypoxic respiratory failure currently on 60 L HFNC with home O2 of 4 L: Procal 2.08. Continue Vancomycin dosed per pharmacy and Cefepime 2g IV BID. DuoNeb Q4H scheduled + Q2H PRN. Pulmicort 1 mg INH BID. Performist 20 mcg INH BID. Tessalon 200 mg PO TID PRN. Solumedrol 60 mg IV Q6H. Sputum Cx, Legionella Ag ordered. COVID, RSV, Flu neg. Telemetry monitoring. Pulmonary on board. Diastolic CHF: Not in acute exacerbation. Echo 07/2024 shows EF 55% with G1DD. Lasix 40 mg PO BID. Cardiology on board. Troponin elevation likely type II NSTEMI with history of CAD: ASA 81 mg PO QD. Lipitor 40 mg PO QD. Metoprolol 12.5 mg PO QD. Cardiology on board. Group 3 pulmonary hypertension: Sildenafil 20 mg PO TID. HTN: Metoprolol 12.5 mg PO QD. Aldactone 12.5 mg PO QD. Depression: Sertraline 50 mg PO QD. AAA and carotid stenosis: Outpatient follow up for routine maintenance. CODE STATUS: FULL CODE DVT Prophylaxis: Lovenox SQ GI Prophylaxis: Protonix PO Designated medical POA if patient is not able to make medical decisions for themselves: I have reviewed the following validation consultant notes: I have reviewed the results of the following tests: CBC, BMP, UA, COVID/RSV/Flu, ABG, CT brain, CTA head and neck. I have ordered the following tests: CXR now and in the AM. I have discussed the care of this patient with the following independent historian: STEPHANIE. Family. I have independently interpreted the following test below: I have discussed the management of this patient with the following physician: Objective - Vital Signs Vital signs: Vital Signs Temp 98.6 F 02/01/25 09:07 Pulse 100 02/01/25 12:18 Resp 22 02/01/25 11:55 BP 117/79 02/01/25 11:55 Pulse Ox 87 L 02/01/25 11:55 FiO2 90 02/01/25 11:55 Intake & Output 01/31/25 02/01/25 02/01/25 18:59 06:59 18:59 Output Total 1025 600 Balance -1025 -600 Weight 49 kg 49 kg Output: Urine 1025 600 Other: Voiding Method Indwelling Catheter Indwelling Catheter Indwelling Catheter # Bowel Movements 1 - Labs CBC & Chem 7: 02/01/25 07:16 02/01/25 07:16 Labs: Abnormal Lab Results - Last 24 Hours (Table) 01/31/25 01/31/25 01/31/25 Range/Units 16:30 17:00 20:03 WBC (4.50-10.00) 10*3/uL RBC (4.10-5.20) 10*6/uL Hgb (12.0-15.0) g/dL Hct (37.2-46.3) % MCH (27.0-32.0) pg MCHC (32.0-37.0) g/dL Plt Count (140-440) 10*3/uL Immature Gran # (0.00-0.04) 10*3/uL Neutrophils # (1.80-7.70) 10*3/uL Lymphocytes # (0.90-5.00) 10*3/uL Eosinophils # (0.04-0.35) 10*3/uL BUN (7-17) mg/dL Glucose (74-99) mg/dL POC Glucose (mg/dL) 168 H 200 H (70-110) mg/dL Total Protein (6.3-8.2) g/dL Albumin (3.5-5.0) g/dL Urine Protein Trace H (Negative) Urine Blood Large H (Negative) Urine RBC >182 H (0-5) /hpf Urine WBC 13 H (0-5) /hpf Hyaline Casts 4 H (0-2) /lpf Urine Mucus Rare H (None) /hpf 02/01/25 02/01/25 02/01/25 Range/Units 06:04 07:16 07:16 WBC 12.76 H (4.50-10.00) 10*3/uL RBC 3.92 L (4.10-5.20) 10*6/uL Hgb 10.0 L (12.0-15.0) g/dL Hct 33.2 L (37.2-46.3) % MCH 25.5 L (27.0-32.0) pg MCHC 30.1 L (32.0-37.0) g/dL Plt Count 136 L (140-440) 10*3/uL Immature Gran # 0.15 H (0.00-0.04) 10*3/uL Neutrophils # 11.88 H (1.80-7.70) 10*3/uL Lymphocytes # 0.46 L (0.90-5.00) 10*3/uL Eosinophils # 0.00 L (0.04-0.35) 10*3/uL BUN 35 H (7-17) mg/dL Glucose 169 H (74-99) mg/dL POC Glucose (mg/dL) 183 H (70-110) mg/dL Total Protein 5.7 L (6.3-8.2) g/dL Albumin 3.3 L (3.5-5.0) g/dL Urine Protein (Negative) Urine Blood (Negative) Urine RBC (0-5) /hpf Urine WBC (0-5) /hpf Hyaline Casts (0-2) /lpf Urine Mucus (None) /hpf 02/01/25 Range/Units 11:44 WBC (4.50-10.00) 10*3/uL RBC (4.10-5.20) 10*6/uL Hgb (12.0-15.0) g/dL Hct (37.2-46.3) % MCH (27.0-32.0) pg MCHC (32.0-37.0) g/dL Plt Count (140-440) 10*3/uL Immature Gran # (0.00-0.04) 10*3/uL Neutrophils # (1.80-7.70) 10*3/uL Lymphocytes # (0.90-5.00) 10*3/uL Eosinophils # (0.04-0.35) 10*3/uL BUN (7-17) mg/dL Glucose (74-99) mg/dL POC Glucose (mg/dL) 180 H (70-110) mg/dL Total Protein (6.3-8.2) g/dL Albumin (3.5-5.0) g/dL Urine Protein (Negative) Urine Blood (Negative) Urine RBC (0-5) /hpf Urine WBC (0-5) /hpf Hyaline Casts (0-2) /lpf Urine Mucus (None) /hpf Microbiology - Last 24 Hours (Table) 01/29/25 18:54 Blood Culture - Preliminary Blood
--- NOTE | 2025-02-01 14:35 | P.PN ---
Subjective Progress Note Date: 02/01/25 This is a 74-year-old female patient who has been chronically ill with chronic obstructive pulmonary disease, interstitial fibrosis, pulmonary hypertension, cor pulmonale, chronic hypoxemic respiratory failure and has had multiple hospitalizations. Just recently discharged from here January 18, 2025 to [facility]. She was brought back in again yesterday with shortness of breath and hypoxemia. Chest x-ray shows chronic changes with possible right lower lobe airspace disease. White count 20.8. Hemoglobin 12.3. Platelets 135. Sodium 140. Potassium 4.4. Bicarb 28. BUN 27. Creatinine 0.75. Glucose 194. proBNP 22,500. She is seen today in consultation in the emergency department. She is currently sitting up on a stretcher. Currently on BiPAP 14/7 and 80% FiO2. She is feeling a bit better now than she was feeling earlier. The patient is seen today January 31, 2025 in follow-up on the selective care unit. She is currently resting in bed. Awake and alert in no acute distress. She is still requiring Airvo high flow oxygen at 60 L and 70% FiO2 to maintain O2 saturations in the 90s. Blood culture reveals no growth thus far. White count 18.4. Hemoglobin 10.1. Platelets 132. Sodium 138. Potassium 3.7. Bicarb 23. BUN 33. Creatinine 0.83. Glucose 196. Arterial blood gases revealed a PO2 of 76, PBG565 and a pH of 7.43 and 70% FiO2. She remains on DuoNeb inhalations, Pulmicort and Perforomist inhalations, IV Solu-Medrol. Antibiotics in the form of vancomycin, Zithromax and cefepime. Procalcitonin was 2.08. The patient is seen today February 01, 2025 in follow-up on the selective care unit. She is still requiring a significant amount of oxygen. Currently on Airvo high flow oxygen at 60 L and 90% FiO2. She had been intolerant to BiPAP. She had developed some confusion last evening. CT scan of the brain revealed no acute intracranial process. CT angiogram revealed moderate narrowing of 55% of the left internal carotid artery. Mild plaquing without significant flow-limiting stenosis on the right. Normal [place]. Blood culture revealed no growth. White count 12.7. Hemoglobin 10.0. Platelets 136. Sodium 139. Potassium 3.9. Bicarb 26. BUN 35. Creatinine 0.94. Glucose 169. She remains on DuoNeb inhalations, Pulmicort and Perforomist inhalations, IV Solu-Medrol. Continued on oral diuretics. Continued on Lovenox for DVT prophylaxis. Remains on antibiotics in the form of vancomycin and cefepime. Objective - Vital Signs Vital signs: Vital Signs Temp 98.6 F 02/01/25 09:07 Pulse 100 02/01/25 12:18 Resp 22 02/01/25 11:55 BP 117/79 02/01/25 11:55 Pulse Ox 87 L 02/01/25 11:55 FiO2 90 02/01/25 11:55 Intake & Output 01/31/25 02/01/25 02/01/25 18:59 06:59 18:59 Output Total 1025 600 Balance -1025 -600 Weight 49 kg 49 kg Output: Urine 1025 600 Other: Voiding Method Indwelling Catheter Indwelling Catheter Indwelling Catheter # Bowel Movements 1 - Exam GENERAL EXAM: Alert, weak, confused at times 74-year-old female, on Airvo high flow oxygen at 60 L and 90% FiO2, comfortable in no apparent distress. HEAD: Normocephalic. EYES: Normal reaction of pupils, equal size. NOSE: Clear with pink turbinates. THROAT: No erythema or exudates. NECK: No masses, no JVD. CHEST: No chest wall deformity. LUNGS: Equal air entry with bilateral scattered rhonchi, crackles in the right lung base. CVS: S1 and S2 normal with no audible murmur, regular rhythm. ABDOMEN: No hepatosplenomegaly, normal bowel sounds, no guarding or rigidity. SPINE: No scoliosis or deformity SKIN: No rashes CENTRAL NERVOUS SYSTEM: No focal deficits, tone is normal in all 4 extremities. EXTREMITIES: There is no peripheral edema. No clubbing, no cyanosis. Peripheral pulses are intact. - Labs CBC & Chem 7: 02/01/25 07:16 02/01/25 07:16 Labs: Abnormal Lab Results - Last 24 Hours (Table) 01/31/25 01/31/25 01/31/25 Range/Units 16:30 17:00 20:03 WBC (4.50-10.00) 10*3/uL RBC (4.10-5.20) 10*6/uL Hgb (12.0-15.0) g/dL Hct (37.2-46.3) % MCH (27.0-32.0) pg MCHC (32.0-37.0) g/dL Plt Count (140-440) 10*3/uL Immature Gran # (0.00-0.04) 10*3/uL Neutrophils # (1.80-7.70) 10*3/uL Lymphocytes # (0.90-5.00) 10*3/uL Eosinophils # (0.04-0.35) 10*3/uL BUN (7-17) mg/dL Glucose (74-99) mg/dL POC Glucose (mg/dL) 168 H 200 H (70-110) mg/dL Total Protein (6.3-8.2) g/dL Albumin (3.5-5.0) g/dL Urine Protein Trace H (Negative) Urine Blood Large H (Negative) Urine RBC >182 H (0-5) /hpf Urine WBC 13 H (0-5) /hpf Hyaline Casts 4 H (0-2) /lpf Urine Mucus Rare H (None) /hpf 02/01/25 02/01/25 02/01/25 Range/Units 06:04 07:16 07:16 WBC 12.76 H (4.50-10.00) 10*3/uL RBC 3.92 L (4.10-5.20) 10*6/uL Hgb 10.0 L (12.0-15.0) g/dL Hct 33.2 L (37.2-46.3) % MCH 25.5 L (27.0-32.0) pg MCHC 30.1 L (32.0-37.0) g/dL Plt Count 136 L (140-440) 10*3/uL Immature Gran # 0.15 H (0.00-0.04) 10*3/uL Neutrophils # 11.88 H (1.80-7.70) 10*3/uL Lymphocytes # 0.46 L (0.90-5.00) 10*3/uL Eosinophils # 0.00 L (0.04-0.35) 10*3/uL BUN 35 H (7-17) mg/dL Glucose 169 H (74-99) mg/dL POC Glucose (mg/dL) 183 H (70-110) mg/dL Total Protein 5.7 L (6.3-8.2) g/dL Albumin 3.3 L (3.5-5.0) g/dL Urine Protein (Negative) Urine Blood (Negative) Urine RBC (0-5) /hpf Urine WBC (0-5) /hpf Hyaline Casts (0-2) /lpf Urine Mucus (None) /hpf 02/01/25 Range/Units 11:44 WBC (4.50-10.00) 10*3/uL RBC (4.10-5.20) 10*6/uL Hgb (12.0-15.0) g/dL Hct (37.2-46.3) % MCH (27.0-32.0) pg MCHC (32.0-37.0) g/dL Plt Count (140-440) 10*3/uL Immature Gran # (0.00-0.04) 10*3/uL Neutrophils # (1.80-7.70) 10*3/uL Lymphocytes # (0.90-5.00) 10*3/uL Eosinophils # (0.04-0.35) 10*3/uL BUN (7-17) mg/dL Glucose (74-99) mg/dL POC Glucose (mg/dL) 180 H (70-110) mg/dL Total Protein (6.3-8.2) g/dL Albumin (3.5-5.0) g/dL Urine Protein (Negative) Urine Blood (Negative) Urine RBC (0-5) /hpf Urine WBC (0-5) /hpf Hyaline Casts (0-2) /lpf Urine Mucus (None) /hpf Microbiology - Last 24 Hours (Table) 01/29/25 18:54 Blood Culture - Preliminary Blood Assessment and Plan Assessment: Acute on chronic hypoxemic respiratory failure, currently requiring BiPAP 14/7 and 80% FiO2, chest x-ray showing possible right lower lobe pneumonia and fluid volume overload. NT proBNP 22,500. Acute COPD exacerbation requiring Airvo high flow oxygen currently at 60 L and 90% FiO2 Acute on chronic hypoxemic respiratory failure secondary to above and possible early right lower lobe pneumonia. Procalcitonin 2.08 Altered mental status, suspect metabolic encephalopathy. CT scan of the brain revealed no acute intracranial process. CT angiogram of the brain revealed no significant stenosis Chronic hypoxemic respiratory failure, typically wears 4 to 5 L/min nasal cannula at home Pulmonary hypertension with RV dysfunction and cor pulmonale. echocardiogram from 08/07/2024 showed a preserved LV function, nevertheless, the patient had severe pulmonary hypertension. RV was severely dilated and estimated PA pressure was 67. She had also moderate TR. Right-sided heart catheterization revealed a mean pulmonary artery pressure of 47 mmHg and pulmonary capillary wedge pressure of 15 suggestive of pre-capillary pulmonary hypertension Chronic bilateral lower extremity edema Acute leukocytosis Elevated troponins, likely secondary to supply/demand mismatch COPD/emphysema History of nonobstructive coronary artery disease Infrarenal abdominal aortic aneurysm, 4.7 cm follows with vascular surgery outpatient Systemic hypertension History of hyperlipidemia Peripheral vascular disease and carotid artery stenosis Former tobacco smoker Anxiety/depression Poor overall functional performance based on the above-mentioned multiple comorbidities Plan: The patient was seen and evaluated Labs and medications reviewed CT scan of the brain reviewed CT angiogram of the head reviewed Follow-up chest x-ray pending Currently requiring Airvo high flow oxygen Currently at 60 L and 90% FiO2 Titrate down the FiO2 as tolerated Continue DuoNeb inhalations Continue Pulmicort and Perforomist inhalations Continue IV Solu-Medrol Continue vancomycin and cefepime Lovenox for DVT prophylaxis Continue diuretics Overall prognosis is guarded Remains a full code We will continue to follow I have personally seen and examined the patient, performed the documentation and the assessment and plan as written. Number of minutes spent on the visit: 10 Dictation was produced using [email or web address] dictation software. Please excuse any grammatical, word or spelling errors.
--- NOTE | 2025-02-01 15:03 | XR ---
EXAMINATION TYPE: XR chest 1V portable DATE OF EXAM: 02/01/2025 2:55 PM COMPARISON: Chest radiographs from 01/29/2025 TECHNIQUE: XR chest 1V portable Portable AP radiograph of the chest. CLINICAL INDICATION:Female, 74 years old with history of PNA; FINDINGS: Lungs/Pleura: Left midlung linear scarring and/or atelectasis. Similar right basilar patchy airspace opacities. No pleural effusion or pneumothorax. Hyperinflation. Pulmonary vascularity: Unremarkable. Heart/mediastinum: Cardiomediastinal silhouette is enlarged and stable. Atherosclerotic calcificatio ns are seen in the aorta. Musculoskeletal: No acute osseous pathology. IMPRESSION: Background COPD changes with similar right basilar patchy airspace opacities concerning for pneumonia . [facility], , 02/01/2025 3:01 PM
[2025-02-01 16:54] LABS: Glucose,Whole Blood 186 mg/dL (70-110)
[2025-02-01 19:34] VITALS: TEMP 97.8
[2025-02-01 20:21] LABS: Glucose,Whole Blood 163 mg/dL (70-110)
--- NOTE | 2025-02-01 22:44 | P.PN ---
Subjective Progress Note Date: 02/01/25 HISTORY OF PRESENTING ILLNESS: 74-year-old female patient of Dr. Fontana. Past medical history of aortic aneurysm, awaiting surgery, hypertension dyslipidemia mild nonobstructive CAD, severe pulmonary hypertension with cor pulmonale, carotid artery stenosis, COPD chronic hypoxemia on 4 L oxygen. This time she presents to the hospital because of acute on chronic hypoxic respiratory failure along with concerns of acute COPD exacerbation. She was hospitalized on 01/12/2025 with similar complaints. 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 Patient was treated with IV diur etics and her home cardiac medications were continued without much changes. On current presents in mentation BP 100/59, heart rate 95 bpm EKG shows sinus tachycardia with right bundle branch block Pertinent labs: Hb 14, BUN 33, creatinine 0.8, troponins are elevated at 0.07, 0.08, essentially flat pattern, likely from hypoxemia, WBC 18 NT-proBNP 22 500. Last admission it was 18,500 Home medications Lasix 40 twice daily, aspirin, metoprolol 12.5 daily, sildenafil 20 3 times daily Last echo from July 2024 shows an EF of 55%, severe RV dilatation with signs of RV pressure overload with RVSP of 67 mmHg Moderate RV hypokinesia Right heart catheterization showed mean PA pressure of 47, wedge of 15 mmHg. Progress note 02/01/2025 Seen and examined at bedside this a.m. Sinus rhythm and sinus tachycardia on EKG with a heart rate of 90 to 100 bpm. BP 104/80, Due to mild confusion she had a CT head which did not show any acute intracranial process. CT neck angiogram showed moderate narrowing of 55% left internal carotid artery. Mild plaque buildup in right side with no significant obstruction. Still getting antibiotics with vancomycin and cefepime PHYSICAL EXAMINATION: Neck: Brisk carotid upstroke, no jugular venous distention. Lungs: On high flow nasal cannula, mild crackles audible, diminished air entry in right lower lung bee with mild wheezing noticed Heart: Regular rate and rhythm, S1-S2, , no murmur or rub. Abdomen: Soft nontender, positive bowel sounds. Extremities: No edema, intact distal pulses. Neuro: Alert, oritented, no focal deficits. Detailed neuro exam was not performed. ASSESSMENT: # Acute on chronic hypoxic respiratory failure. Chronically on 4 to 5 L # Type II NSTEMI because of hypoxemia # Concerns of right lower lobe pneumonia, likely healthcare associated pneumonia # Acute COPD exacerbation # Severe pulmonary hypertension, WHO class III # Mild nonobstructive CAD # Infrarenal aortic aneurysm # Essential hypertension, dyslipidemia, former tobacco smoker # PAD with carotid disease PLAN: Continue aspirin, Lipitor, Continue metoprolol 12.5 mg daily, Lasix 40 p.o. twice daily Aldactone 25 daily, discontinue potassium Continue sildenafil 20 mg 3 times daily which she takes for pulmonary hypertension as her home medication. Cannot add amlodipine 2.5 because of low borderline blood pressure. Supplement oxygen Prognosis overall guarded because of advanced group 3 pulmonary hypertension Objective - Vital Signs Vital signs: Vital Signs Temp 97.8 F 02/01/25 19:32 Pulse 94 02/01/25 20:10 Resp 24 02/01/25 19:32 BP 116/81 02/01/25 19:32 Pulse Ox 91 L 02/01/25 19:32 FiO2 70 02/01/25 19:45 Intake & Output 02/01/25 02/01/25 02/02/25 06:59 18:59 06:59 Output Total 1025 600 Balance -1025 -600 Weight 49 kg 49 kg Output: Urine 1025 600 Other: Voiding Method Indwelling Catheter Indwelling Catheter Indwelling Catheter # Bowel Movements 1 1 - Labs CBC & Chem 7: 02/01/25 07:16 02/01/25 07:16 Labs: Abnormal Lab Results - Last 24 Hours (Table) 02/01/25 02/01/25 02/01/25 Range/Units 06:04 07:16 07:16 WBC 12.76 H (4.50-10.00) 10*3/uL RBC 3.92 L (4.10-5.20) 10*6/uL Hgb 10.0 L (12.0-15.0) g/dL Hct 33.2 L (37.2-46.3) % MCH 25.5 L (27.0-32.0) pg MCHC 30.1 L (32.0-37.0) g/dL Plt Count 136 L (140-440) 10*3/uL Immature Gran # 0.15 H (0.00-0.04) 10*3/uL Neutrophils # 11.88 H (1.80-7.70) 10*3/uL Lymphocytes # 0.46 L (0.90-5.00) 10*3/uL Eosinophils # 0.00 L (0.04-0.35) 10*3/uL BUN 35 H (7-17) mg/dL Glucose 169 H (74-99) mg/dL POC Glucose (mg/dL) 183 H (70-110) mg/dL Total Protein 5.7 L (6.3-8.2) g/dL Albumin 3.3 L (3.5-5.0) g/dL 02/01/25 02/01/25 02/01/25 Range/Units 11:44 16:52 20:19 WBC (4.50-10.00) 10*3/uL RBC (4.10-5.20) 10*6/uL Hgb (12.0-15.0) g/dL Hct (37.2-46.3) % MCH (27.0-32.0) pg MCHC (32.0-37.0) g/dL Plt Count (140-440) 10*3/uL Immature Gran # (0.00-0.04) 10*3/uL Neutrophils # (1.80-7.70) 10*3/uL Lymphocytes # (0.90-5.00) 10*3/uL Eosinophils # (0.04-0.35) 10*3/uL BUN (7-17) mg/dL Glucose (74-99) mg/dL POC Glucose (mg/dL) 180 H 186 H 163 H (70-110) mg/dL Total Protein (6.3-8.2) g/dL Albumin (3.5-5.0) g/dL Microbiology - Last 24 Hours (Table) 01/29/25 18:54 Blood Culture - Preliminary Blood
[2025-02-02] MEDS: MORPHINE SULFATE 2 MG/ML SYRINGE IVP STA (03:21)
[2025-02-02 06:22] LABS: Glucose,Whole Blood 201 mg/dL (70-110)
--- NOTE | 2025-02-02 07:03 | XR ---
EXAMINATION TYPE: XR chest 1V portable DATE OF EXAM: 02/02/2025 6:49 AM COMPARISON: Chest radiographs from 02/01/2025 TECHNIQUE: XR chest 1V portable Portable AP radiograph of the chest. CLINICAL INDICATION:Female, 74 years old with history of PNA; FINDINGS: Lungs/Pleura: Left midlung linear scarring and/or atelectasis. Improving right basilar patchy airspac e opacities. No pleural effusion or pneumothorax. Hyperinflation. Pulmonary vascularity: Unremarkable. Heart/mediastinum: Cardiomediastinal silhouette is enlarged and stable. Atherosclerotic calcificatio ns are seen in the aorta. Musculoskeletal: No acute osseous pathology. IMPRESSION: Background COPD changes with improving right basilar patchy airspace opacities. [facility], , 02/02/2025 7:01 AM
[2025-02-02 07:30] LABS: Basophils # (A) 0.02 10*3/uL (0.00-0.10); Basophils % (A) 0.2 %; Eosinophils # (A) 0.00 10*3/uL (0.04-0.35); Eosinophils % (A) 0.0 %; HCT 34.1 % (37.2-46.3); HGB 10.3 g/dL (12.0-15.0); Lymphocytes # (A) 0.39 10*3/uL (0.90-5.00); Lymphocytes % (A) 3.0 %; MCH 25.7 pg (27.0-32.0); MCHC 30.2 g/dL (32.0-37.0); MCV 85.0 fL (80.0-97.0); Monocytes # (A) 0.31 10*3/uL (0.20-1.00); Monocytes % (A) 2.4 %; Neutrophils # (A) 12.19 10*3/uL (1.80-7.70); Neutrophils % (A) 92.6 %; Platelet Count 183 10*3/uL (140-440); RBC 4.01 10*6/uL (4.10-5.20); RDW 19.1 % (11.5-14.5); WBC 13.15 10*3/uL (4.50-10.00)
[2025-02-02 07:55] LABS: ALT 38 U/L (4-34); AST 38 U/L (14-36); African American GFR (CKD) 64 (>60 ml/min/1.73 sqM); Albumin 3.5 g/dL (3.5-5.0); Alkaline Phosphatase 86 U/L (38-126); Anion Gap 14 mmol/L; Blood Urea Nitrogen 42 mg/dL (7-17); Calcium 9.3 mg/dL (8.4-10.2); Carbon Dioxide 20 mmol/L (22-30); Chloride 108 mmol/L (98-107); Glucose 200 mg/dL (74-99); Non-African American GFR(CKD) 56 (>60 ml/min/1.73 sqM); Potassium 3.7 mmol/L (3.5-5.1); Sodium 142 mmol/L (137-145); Total Protein 5.9 g/dL (6.3-8.2)
[2025-02-02] MEDS ORDERED: MORPHINE SULFATE 2 MG/ML SYRINGE IVP PRN (10:03)
[2025-02-02] MEDS: MORPHINE SULFATE 4 MG/ML SYRINGE IVP STA (10:41)
[2025-02-02] MEDS: SUCCINYLCHOLINE CHLORIDE 200 MG/10 ML VIAL IV STA (10:42)
[2025-02-02] MEDS: LORazepam 1 MG/0.5 ML VIAL IV STA (10:50)
[2025-02-02] MEDS: CISATRACURIUM 2 MG/ML 5 ML VIAL IV ONE (10:50)
[2025-02-02] MEDS ORDERED: INSULIN LISPRO (HumaLOG) 100 UNIT/ML 10 mL VL SQ SCH (11:00)
[2025-02-02 11:16] LABS: ABG HCO3 22 mmol/L (21-25); ABG TCO2 24 mmol/L (19-24)
[2025-02-02 11:29] LABS: ABG PCO2 73 mmHg (35-45); ABG PH 7.09 (7.35-7.45); ABG PO2 52 mmHg (83-108); Allen Test Performed? no
[2025-02-02] MEDS ORDERED: VASOPRESSIN 20 UNIT in SODIUM CHLORIDE 0.9% 50 ML IV SCH (11:30)
[2025-02-02] MEDS ORDERED: NOREPINEPHRINE 8 MG in SODIUM CHLORIDE 0.9% 250 ML IV SCH (11:30)
--- NOTE | 2025-02-02 11:35 | XR ---
EXAMINATION TYPE: XR chest 1V portable DATE OF EXAM: 02/02/2025 11:21 AM COMPARISON: Multiple radiographs, with the most recent on 02/02/2025 TECHNIQUE: XR chest 1V portable Portable AP radiograph of the chest. CLINICAL INDICATION:Female, 74 years old with history of Tube placement; FINDINGS: Lungs/Pleura: Left midlung linear scarring and/or atelectasis. Similar right basilar patchy airspace opacities. No pleural effusion or pneumothorax. Hyperinflation. Pulmonary vascularity: Unremarkable. Heart/mediastinum: Cardiomediastinal silhouette is enlarged and stable. Atherosclerotic calcificatio ns are seen in the aorta. Musculoskeletal: No acute osseous pathology. Lines/Tubes: Endotracheal tube with distal tip 7.2 cm above the bubba Nasogastric tube with its distal tip and side-port projecting under the diaphragm. Left subclavian approach central venous catheter with distal tip terminating at the superior cavoatri al junction. IMPRESSION: 1. Background COPD changes with similar right basilar patchy airspace opacities concerning for pneum onia. 2. Appropriate position of support lines and tubes. [facility], , 02/02/2025 11:33 AM
--- NOTE | 2025-02-02 11:39 | P.PN ---
Subjective Progress Note Date: 02/02/25 74 year old F with PMH of COPD on 4L home O2, pulmonary hypertension, AAA presented to the ED for progressively worsening shortness of breath. Vitals on admission T 97.5, HR 110, RR 36, BP 116/80, O2 saturation of 87% on 15 L non rebreather. EKG showed sinus tachycardia with PVCs and incomplete RBBB rate of 104 and QTc of 417 ms CXR showed RLL airspace opacities. Venous duplex neg for DVT. Labs on admission showed WBC 23.11, APTT 21.5, K 3.1, BUN 25, glu 170, Lactic acid 2.8-2, BNP 21400, Trop 0.062, 0.052, 0.07, 0.086. Patient was admitted for acute on chronic hypoxic respiratory failure secondary to PNA. Started on Vancomycin and Cefepime along with bronchodilators and steroids. Patient with altered mentation on 01/31, CT brain negative, CTA head and neck 55% L ICA stenosis. 02/01 Patient was seen and examined. Appears lethargic. She is on 60L HFNC saturating low 90s. CBC and BMP significant for WBC 12.76, RBC 3.92, Hg 10, Hct 33.2, Plt 136, BUN 35, glu 169, alb 3.3. UA neg LE or nitrite. ABG shows pH 7.43, pCO2 39, pO2 76. COVID, RSV, Flu neg. Discussed with daughter extensively regarding course of action. If patient continues to worsen, she may need to be intubated. She will likely be a very difficult extubation which may lead to trach/PEG. Previously, she has had a hard time tolerating BiPAP. Daughter to discuss with her sibilings. 02/02 Patient was seen and examined. Mentation worsened this morning. Siblings unable to decide on CODE status, patient subsequently intubated this morning. Sedated with propofol at 20 mcg/kg/min. Antibiotics include Vancomycin and Cefepime (D4). CBC, CMP significant for WBC 13.15, RBC 4.01, Hg 10.3, Hct 34.1, Cl 108, bicarb 20, BUN 42, glu 200, AST 38, ALT 38. ABG pH 7.09, pCO2 73, pO2 52. BCx negative so far. UCx negative. CXR shows similar findings with right basilar opacities. General: non toxic, no distress, Intubated Derm: warm, dry Head: atraumatic, normocephalic, symmetric Eyes: EOMI, no lid lag, anicteric sclera Mouth: no lip lesion, mucus membranes moist Cardiovascular: S1S2 tachy, no murmur Lungs: Coarse BS bilateral, no rhonchi, no rales , no accessory muscle use Ext: no gross muscle atrophy, no edema, no contractures Neuro: Intubated Psych: Intubated Based on my assessment of this patient, this patient meets a high complexity level of care. Sepsis and Acute on chronic hypoxic hypercapneic respiratory failure secondary to hospital acquired PNA: Procal 2.08. Continue Vancomycin dosed per pharmacy and Cefepime 2g IV BID (D4). DuoNeb Q4H scheduled + Q2H PRN. Pulmicort 1 mg INH BID. Performist 20 mcg INH BID. Tessalon 200 mg PO TID PRN. Solumedrol 60 mg IV Q6H. Sputum Cx, Legionella Ag ordered. COVID, RSV, Flu neg. BCx neg. Telemetry monitoring. Pulmonary on board. Acute metabolic encephalopathy: Likely due to below. CT brain and CTA head and neck negative for CVA. ABG as above. UA as above. Diastolic CHF: Not in acute exacerbation. Echo 07/2024 shows EF 55% with G1DD. Lasix 40 mg PO BID if BP permits. Cardiology on board. Troponin elevation likely type II NSTEMI with history of CAD: ASA 81 mg PO QD. Lipitor 40 mg PO QD. Metoprolol 12.5 mg PO QD if BP permits. Cardiology on board. Group 3 pulmonary hypertension: Sildenafil 20 mg PO TID. HTN: Metoprolol 12.5 mg PO QD + Aldactone 12.5 mg PO QD if BP permits. Depression: Sertraline 50 mg PO QD. AAA and carotid stenosis: Outpatient follow up for routine maintenance. CODE STATUS: FULL CODE DVT Prophylaxis: Lovenox SQ GI Prophylaxis: Protonix PO Designated medical POA if patient is not able to make medical decisions for themselves: I have reviewed the following health care consultant notes: Pulmonary, Cardiology I have reviewed the results of the following tests: CBC, CMP, ABG I have ordered the following tests: I have discussed the care of this patient with the following independent historian: STEPHANIE. I have independently interpreted the following test below: CXR I have discussed the management of this patient with the following physician: Objective - Vital Signs Vital signs: Vital Signs Temp 97.8 F 02/01/25 19:32 Pulse 98 02/02/25 08:50 Resp 24 02/02/25 07:57 BP 100/66 02/02/25 07:57 Pulse Ox 86 L 02/02/25 07:57 FiO2 100 02/02/25 10:52 Intake & Output 02/01/25 02/02/25 02/02/25 18:59 06:59 18:59 Output Total 600 650 Balance -600 -650 Weight 49 kg 50 kg Output: Urine 600 650 Other: Voiding Method Indwelling Catheter Indwelling Catheter # Bowel Movements 1 1 - Labs CBC & Chem 7: 02/02/25 07:02 02/02/25 07:02 Labs: Abnormal Lab Results - Last 24 Hours (Table) 02/01/25 02/01/25 02/01/25 Range/Units 11:44 16:52 20:19 WBC (4.50-10.00) 10*3/uL RBC (4.10-5.20) 10*6/uL Hgb (12.0-15.0) g/dL Hct (37.2-46.3) % MCH (27.0-32.0) pg MCHC (32.0-37.0) g/dL Immature Gran # (0.00-0.04) 10*3/uL Neutrophils # (1.80-7.70) 10*3/uL Lymphocytes # (0.90-5.00) 10*3/uL Eosinophils # (0.04-0.35) 10*3/uL ABG pH (7.35-7.45) ABG pCO2 (35-45) mmHg ABG pO2 (83-108) mmHg ABG O2 Saturation (94-97) % Hemoglobin (11.4-16.0) gm/dL Chloride (98-107) mmol/L Carbon Dioxide (22-30) mmol/L BUN (7-17) mg/dL Glucose (74-99) mg/dL POC Glucose (mg/dL) 180 H 186 H 163 H (70-110) mg/dL AST (14-36) U/L ALT (4-34) U/L Total Protein (6.3-8.2) g/dL 02/02/25 02/02/25 02/02/25 Range/Units 06:20 07:02 07:02 WBC 13.15 H (4.50-10.00) 10*3/uL RBC 4.01 L (4.10-5.20) 10*6/uL Hgb 10.3 L (12.0-15.0) g/dL Hct 34.1 L (37.2-46.3) % MCH 25.7 L (27.0-32.0) pg MCHC 30.2 L (32.0-37.0) g/dL Immature Gran # 0.24 H (0.00-0.04) 10*3/uL Neutrophils # 12.19 H (1.80-7.70) 10*3/uL Lymphocytes # 0.39 L (0.90-5.00) 10*3/uL Eosinophils # 0.00 L (0.04-0.35) 10*3/uL ABG pH (7.35-7.45) ABG pCO2 (35-45) mmHg ABG pO2 (83-108) mmHg ABG O2 Saturation (94-97) % Hemoglobin (11.4-16.0) gm/dL Chloride 108 H (98-107) mmol/L Carbon Dioxide 20 L (22-30) mmol/L BUN 42 H (7-17) mg/dL Glucose 200 H (74-99) mg/dL POC Glucose (mg/dL) 201 H (70-110) mg/dL AST 38 H (14-36) U/L ALT 38 H (4-34) U/L Total Protein 5.9 L (6.3-8.2) g/dL 02/02/25 Range/Units 11:13 WBC (4.50-10.00) 10*3/uL RBC (4.10-5.20) 10*6/uL Hgb (12.0-15.0) g/dL Hct (37.2-46.3) % MCH (27.0-32.0) pg MCHC (32.0-37.0) g/dL Immature Gran # (0.00-0.04) 10*3/uL Neutrophils # (1.80-7.70) 10*3/uL Lymphocytes # (0.90-5.00) 10*3/uL Eosinophils # (0.04-0.35) 10*3/uL ABG pH 7.09 L* (7.35-7.45) ABG pCO2 73 H* (35-45) mmHg ABG pO2 52 L* (83-108) mmHg ABG O2 Saturation 66.4 L (94-97) % Hemoglobin 11.1 L (11.4-16.0) gm/dL Chloride (98-107) mmol/L Carbon Dioxide (22-30) mmol/L BUN (7-17) mg/dL Glucose (74-99) mg/dL POC Glucose (mg/dL) (70-110) mg/dL AST (14-36) U/L ALT (4-34) U/L Total Protein (6.3-8.2) g/dL Microbiology - Last 24 Hours (Table) 01/31/25 17:00 Urine Culture - Final Urine,Voided 01/29/25 18:54 Blood Culture - Preliminary Blood
--- NOTE | 2025-02-02 11:54 | OP ---
OPERATIVE REPORT DATE OF SERVICE : HOME SERVICE ADVISOR: Dr. Tricia Stewart. PROCEDURE: Right radial art line. PREOPERATIVE DIAGNOSIS: Frequent blood draws and blood gas monitoring. POSTOPERATIVE DIAGNOSIS: Frequent blood draws and blood gas monitoring. There was informed consent and universal timeout. The patient's procedure took place in room 255. ARTERIAL LINE PLACEMENT: Indications: Hemodynamic monitoring. A time-out was completed verifying correct patient, procedure, site, positioning, and implant(s) or special equipment if applicable. Refugio's test was performed to ensure adequate perfusion. The patient's right wrist was prepped and draped in sterile fashion. 1% Lidocaine was used to anesthetize the area. An 18G Arrow arterial line was introduced into the radial artery. The catheter was threaded over the guide wire and the needle was removed with appropriate pulsatile blood return. Blood loss was minimal. The catheter was then sutured in place to the skin and a sterile dressing applied. Perfusion to the extremity distal to the point of catheter insertion was checked and found to be adequate. The patient tolerated the procedure well and there were no complications. There was good blood return and waveform. The catheter was sutured in place. A sterile dressing was applied by the nurse. There was no immediate complication. The patient tolerated the procedure well. MMODL / IJN: [id number] /
--- NOTE | 2025-02-02 11:54 | OP ---
OPERATIVE REPORT DATE OF SERVICE : PROCEDURE: Left subclavian triple-lumen catheter. PREOPERATIVE DIAGNOSIS: Administration of fluids and pressors. POSTOPERATIVE DIAGNOSIS: Administration of fluids and pressors. TRIPLE LUMEN CATHETER PLACEMENT: Indication: Hemodynamic monitoring/Intravenous access. A time-out was completed verifying correct patient, procedure, site, positioning, and implant(s) or special equipment if applicable. The patient was placed in a dependent position appropriate for triple lumen catheter placement based on the vein to be cannulated. The patient's left neck was prepped and draped in sterile fashion. 1% Lidocaine was used to anesthetize the surrounding skin area. A triple lumen 9F Cordis catheter was introduced into the left subclavian vein using Seldinger technique. The catheter was threaded smoothly over the guide wire and appropriate blood return was obtained. Each lumen of the catheter was evacuated of air and flushed with sterile saline. The catheter was then sutured in place to the skin and a sterile dressing applied. Perfusion to the extremity distal to the point of catheter insertion was checked and found to be adequate. There was no immediate complication. There was good blood return from all 3 ports. The tip of the catheter was seen in the junction superior vena cava and right atrium. [employer]: Tricia Stewart. There was informed consent. Again, the patient's procedure took place in room 255. MMODL / IJN: [id number] /
--- NOTE | 2025-02-02 12:00 | OP ---
OPERATIVE REPORT DATE OF SERVICE : PROCEDURE: Emergent intubation. PREOPERATIVE DIAGNOSIS: Impending respiratory failure. POSTOPERATIVE DIAGNOSIS: Impending respiratory failure. DESCRIPTION OF PROCEDURE: We intubated the patient with a standard endoscope using a #7.5 tube and a #3 Viviana blade. After the patient was sedated with 2 mg of Ativan, 5 mg of morphine and 3 mL of 60 mg of succinylcholine, the laryngoscope was inserted in the vallecula. The glottic opening was evaluated and observed. The endotracheal tube was pushed through the glottic opening into the trachea. There were good bilateral breath sounds. There was good color change on the qualitative capnography. The private pilot balloon was filled with air, and the tube was secured. The patient was connected to mechanical ventilator. There were good bilateral breath sounds. Good return in term of tidal volumes. The patient tolerated the procedure well. The endotracheal tube was secured. A chest x- ray was ordered to check placement. There was no immediate complication. FIRST FIBERGLASS TECHNICIAN: Dr. Tricia Stewart. MARIN / JUDY: [id number] /
--- NOTE | 2025-02-02 13:18 | P.PN ---
Subjective Progress Note Date: 02/02/25 Principal diagnosis: Impending respiratory failure. This is a 74-year-old female patient who has been chronically ill with chronic obstructive pulmonary disease, interstitial fibrosis, pulmonary hypertension, cor pulmonale, chronic hypoxemic respiratory failure and has had multiple hospitalizations. Just recently discharged from here January 18, 2025 to [facility]. She was brought back in again yesterday with shortness of breath and hypoxemia. Chest x-ray shows chronic changes with possible right lower lobe airspace disease. White count 20.8. Hemoglobin 12.3. Platelets 135. Sodium 140. Potassium 4.4. Bicarb 28. BUN 27. Creatinine 0.75. Glucose 194. proBNP 22,500. She is seen today in consultation in the emergency department. She is currently sitting up on a stretcher. Currently on BiPAP 14/7 and 80% FiO2. She is feeling a bit better now than she was feeling earlier. The patient is seen today January 31, 2025 in follow-up on the selective care unit. She is currently resting in bed. Awake and alert in no acute distress. She is still requiring Airvo high flow oxygen at 60 L and 70% FiO2 to maintain O2 saturations in the 90s. Blood culture reveals no growth thus far. White count 18.4. Hemoglobin 10.1. Platelets 132. Sodium 138. Potassium 3.7. Bicarb 23. BUN 33. Creatinine 0.83. Glucose 196. Arterial blood gases revealed a PO2 of 76, [id number] and a pH of 7.43 and 70% FiO2. She remains on DuoNeb inhalations, Pulmicort and Perforomist inhalations, IV Solu-Medrol. Antibiotics in the form of vancomycin, Zithromax and cefepime. Procalcitonin was 2.08. The patient is seen today February 01, 2025 in follow-up on the selective care unit. She is still requiring a significant amount of oxygen. Currently on Airvo high flow oxygen at 60 L and 90% FiO2. She had been intolerant to BiPAP. She had developed some confusion last evening. CT scan of the brain revealed no acute intracranial process. CT angiogram revealed moderate narrowing of 55% of the left internal carotid artery. Mild plaquing without significant flow-limiting stenosis on the right. Normal stebbins of [place]. Blood culture revealed no growth. White count 12.7. Hemoglobin 10.0. Platelets 136. Sodium 139. Potassium 3.9. Bicarb 26. BUN 35. Creatinine 0.94. Glucose 169. She remains on DuoNeb inhalations, Pulmicort and Perforomist inhalations, IV Solu-Medrol. Continued on oral diuretics. Continued on Lovenox for DVT prophylaxis. Remains on antibiotics in the form of vancomycin and cefepime. Progress note dated February 02, 2025. The patient is seen today in room 383. The patient was having significant respiratory difficulty, and the nurses were struggling, to maintain saturation. She was on BiPAP, at 14/7 at 70%. She was fighting the BiPAP, and very agitated. There was no IV fluids running. The patient apparently initially was a DO NOT RESUSCITATE, and then apparently, changed her mind. It was clear to me that the patient needed to be transferred to the intensive care unit, and immediately intubated, for respiratory failure. I spoke to one of the daughters, Clara Walker, who stated that her mother would not want intubation and mechanical ventilation. Subsequent to that, literally in minutes, other family members called, and said that the patient would want intubation and mechanical ventilation. One of the daughters, was a hospice nurse. Anyway, at that point, I made the decision to transfer the patient down to the intensive care unit, and, we did a rapid sequence intubation, and placed a left subclavian triple-lumen catheter in her right radial arterial line. The patient was very unstable, during the entire time, was having wide fluctuations in blood pressure, requiring fluids, and pressors. In addition, the initial blood gases were not particularly good. Anyway, I was able to speak to a couple of family members, other than the Clara Walker woman that I spoke to earlier. They did state that mom would want full life support at this time. Laboratory data includes a white count of 13.2, hemoglobin 10.3, hematocrit 34.1, and a platelet count that was normal. Initial blood gases showed a PO2 of 52, pCO2 73, and a pH of 7.09. That was done on 100% oxygen, and 10 of PEEP. At that point, we de cided to increase the rate, from 20 to 28 breaths/min. Sodium 142, potassium 3.7, chlorides 108, CO2 20, BUN 42, creatinine 1.01. Anion gap was 14. Glucose was 200. AST was 38. ALT was 38. Chest x-ray, after the lines were placed and the patient was intubated, showed changes of COPD, and some patchy right basilar airspace opacities, concerning for pneumonia. The triple-lumen, endotracheal t ube, and NG tube, are all in excellent position. Objective - Vital Signs Vital signs: Vital Signs Temp 97.8 F 02/01/25 19:32 Pulse 40 L 02/02/25 11:40 Resp 30 H 02/02/25 11:40 BP 62/34 02/02/25 11:40 Pulse Ox 69 L 02/02/25 11:30 FiO2 100 02/02/25 11:25 Intake & Output 02/01/25 02/02/25 02/02/25 18:59 06:59 18:59 Output Total 600 650 Balance -600 -650 Weight 49 kg 50 kg Output: Urine 600 650 Other: Voiding Method Indwelling Catheter Indwelling Catheter # Bowel Movements 1 1 ABP, PAP, CO, CI - Last Documented Arterial Blood Pressure 39/31 - Exam No acute distress, sedated, with an orally placed endotracheal tube, and NG tube. HEENT examination is grossly unremarkable. Mucous membranes are moist. No oral lesions. Neck supple. Full range of motion. No adenopathy thyromegaly or neck vein distention. Cardiovascular examination reveals regular rhythm rate. S1-S2 normal. No S3 or S4. No discernible murmur noted. Heart rate 120 bpm. Lungs reveal coarse bilateral rhonchi and expiratory wheezes. No crackles. Breath sounds equal but diminished throughout. Abdomen soft without bowel sounds. No masses or tenderness. Extremities are intact. No cyanosis clubbing or significant edema. Skin is without rash or lesion. Neurologic examination could not be evaluated. - Labs CBC & Chem 7: 02/02/25 07:02 02/02/25 07:02 Labs: Abnormal Lab Results - Last 24 Hours (Table) 02/01/25 02/01/25 02/02/25 Range/Units 16:52 20:19 06:20 WBC (4.50-10.00) 10*3/uL RBC (4.10-5.20) 10*6/uL Hgb (12.0-15.0) g/dL Hct (37.2-46.3) % MCH (27.0-32.0) pg MCHC (32.0-37.0) g/dL Immature Gran # (0.00-0.04) 10*3/uL Neutrophils # (1.80-7.70) 10*3/uL Lymphocytes # (0.90-5.00) 10*3/uL Eosinophils # (0.04-0.35) 10*3/uL ABG pH (7.35-7.45) ABG pCO2 (35-45) mmHg ABG pO2 (83-108) mmHg ABG O2 Saturation (94-97) % Hemoglobin (11.4-16.0) gm/dL Chloride (98-107) mmol/L Carbon Dioxide (22-30) mmol/L BUN (7-17) mg/dL Glucose (74-99) mg/dL POC Glucose (mg/dL) 186 H 163 H 201 H (70-110) mg/dL AST (14-36) U/L ALT (4-34) U/L Total Protein (6.3-8.2) g/dL 02/02/25 02/02/25 02/02/25 Range/Units 07:02 07:02 11:13 WBC 13.15 H (4.50-10.00) 10*3/uL RBC 4.01 L (4.10-5.20) 10*6/uL Hgb 10.3 L (12.0-15.0) g/dL Hct 34.1 L (37.2-46.3) % MCH 25.7 L (27.0-32.0) pg MCHC 30.2 L (32.0-37.0) g/dL Immature Gran # 0.24 H (0.00-0.04) 10*3/uL Neutrophils # 12.19 H (1.80-7.70) 10*3/uL Lymphocytes # 0.39 L (0.90-5.00) 10*3/uL Eosinophils # 0.00 L (0.04-0.35) 10*3/uL ABG pH 7.09 L* (7.35-7.45) ABG pCO2 73 H* (35-45) mmHg ABG pO2 52 L* (83-108) mmHg ABG O2 Saturation 66.4 L (94-97) % Hemoglobin 11.1 L (11.4-16.0) gm/dL Chloride 108 H (98-107) mmol/L Carbon Dioxide 20 L (22-30) mmol/L BUN 42 H (7-17) mg/dL Glucose 200 H (74-99) mg/dL POC Glucose (mg/dL) (70-110) mg/dL AST 38 H (14-36) U/L ALT 38 H (4-34) U/L Total Protein 5.9 L (6.3-8.2) g/dL Microbiology - Last 24 Hours (Table) 01/31/25 17:00 Urine Culture - Final Urine,Voided 01/29/25 18:54 Blood Culture - Preliminary Blood Assessment and Plan Assessment: Impending respiratory failure, requiring emergent intubation, and mechanical ventilation, February 02, 2025. Acute on chronic hypoxemic respiratory failure, currently requiring BiPAP. Acute COPD exacerbation requiring Airvo. Acute on chronic hypoxemic respiratory failure secondary to above and possible early right lower lobe pneumonia. Altered mental status, suspect metabolic encephalopathy. Chronic hypoxemic respiratory failure, typically wears 4 to 5 L/min nasal cannula at home. Pulmonary hypertension with RV dysfunction and cor pulmonale. Chronic bilateral lower extremity edema. Acute leukocytosis. Elevated troponins, likely secondary to supply/demand mismatch. COPD/emphysema. History of nonobstructive coronary artery disease . Infrarenal abdominal aortic aneurysm, 4.7 cm. Systemic hypertension. History of hyperlipidemia. Peripheral vascular disease and carotid artery stenosis. Former tobacco smoker. Anxiety/depression. Poor overall functional performance based on the above-mentioned multiple comorbidities. Plan: Plan dated February 02, 2025. The patient has impending respiratory failure, and is transferred into the intensive care unit. The family is ambivalent about what to do, so therefore, since some of the family members thought that the patient should be intubated, she was intubated, and aligned. Patient was very unstable after intubation, and was receiving fluids, and vasopressors. I did have an opportunity to speak to a number of the family members, who stated that the patient would want to be on the mechanical ventilator, but would probably not want a tracheostomy or feeding tube, if it came to that. The patient had a right radial arterial line placed, and a left subclavian triple-lumen catheter. I also intubated her, with rapid sequence intubation, using a 7-1/2 endotracheal tube. Labs, x-rays, medications are reviewed. Prognosis is very poor. We will continue to follow. Dictation was produced using [employer] software. Please excuse any grammatical, word or spelling errors. Time with Patient: Greater than 30
[2025-02-02 14:20] VITALS: BP 85/64; PULSE 0; RESP 0
--- NOTE | 2025-02-02 16:21 | P.DS ---
Providers Date of admission: 01/29/25 18:26 Expected date of discharge: 02/02/25 Attending physician: Gabrielle Tineo MD Consults: 01/29/25 22:52 Consult Physician Routine Consulting Provider: Jose Elias Sadler Consult Reason/Comments: copd exacerbation Do you want consulting provider notified?: Yes 01/30/25 11:33 Consult Physician Routine Consulting Provider: Joey Fontana Consult Reason/Comments: acute hypoxia, multifactoria, chf Do you want consulting provider notified?: Yes Primary care physician: Nolan Dsouza [facility] Course: 74 year old F with PMH of COPD on 4L home O2, pulmonary hypertension, AAA presented to the ED for progressively worsening shortness of breath. Vitals on admission T 97.5, HR 110, RR 36, BP 116/80, O2 saturation of 87% on 15 L non rebreather. EKG showed sinus tachycardia with PVCs and incomplete RBBB rate of 104 and QTc of 417 ms CXR showed RLL airspace opacities. Venous duplex neg for DVT. Labs on admission showed WBC 23.11, APTT 21.5, K 3.1, BUN 25, glu 170, Lactic acid 2.8-2, BNP 80023, Trop 0.062, 0.052, 0.07, 0.086. Patient was admitted for acute on chronic hypoxic respiratory failure secondary to PNA. Started on Vancomycin and Cefepime along with bronchodilators and steroids. Patient with altered mentation on 01/31, CT brain negative, CTA head and neck 55% L ICA stenosis. 02/01 Patient was seen and examined. Appears lethargic. She is on 60L HFNC saturating low 90s. CBC and BMP significant for WBC 12.76, RBC 3.92, Hg 10, Hct 33.2, Plt 136, BUN 35, glu 169, alb 3.3. UA neg LE or nitrite. ABG shows pH 7.43, pCO2 39, pO2 76. COVID, RSV, Flu neg. Discussed with daughter extensively regarding course of action. If patient continues to worsen, she may need to be intubated. She will likely be a very difficult extubation which may lead to trach/PEG. Previously, she has had a hard time tolerating BiPAP. Daughter to discuss with her sibilings. 02/02 Patient was seen and examined. Mentation worsened this morning. Siblings unable to decide on CODE status, patient subsequently intubated this morning. Sedated with propofol at 20 mcg/kg/min. Antibiotics include Vancomycin and Cefepime (D4). CBC, CMP significant for WBC 13.15, RBC 4.01, Hg 10.3, Hct 34.1, Cl 108, bicarb 20, BUN 42, glu 200, AST 38, ALT 38. ABG pH 7.09, pCO2 73, pO2 52. BCx negative so far. UCx negative. CXR shows similar findings with right basilar opacities. Patient became hypotensive. CODE status was re-addressed with the family and they decided on NO CODE. Patient subsequently at 11:50 on 02/02. General: non toxic, no distress, Intubated Derm: warm, dry Head: atraumatic, normocephalic, symmetric Eyes: EOMI, no lid lag, anicteric sclera Mouth: no lip lesion, mucus membranes moist Cardiovascular: S1S2 tachy, no murmur Lungs: Coarse BS bilateral, no rhonchi, no rales , no accessory muscle use Ext: no gross muscle atrophy, no edema, no contractures Neuro: Intubated Psych: Intubated Discharge Diagnosis: Sepsis and Acute on chronic hypoxic hypercapneic respiratory failure secondary to hospital acquired PNA Acute metabolic encephalopathy Diastolic CHF Troponin elevation likely type II NSTEMI with history of CAD Group 3 pulmonary hypertension HTN Depression AAA and carotid stenosis Plan - Discharge Summary Discharge Rx Participant: No New Discharge Prescriptions: No Action Atorvastatin [Lipitor] 40 mg PO HS Ergocalciferol [Vitamin D2 (1250 Mcg = 46451 Iu)] 1,250 mcg PO MO Ipratropium/Albuter 20-100Mcg [Combivent Respimat 20-100Mcg Inhaler] 1 puff INHALATION RT-QID Sertraline [Zoloft] 50 mg PO DAILY guaiFENesin [Mucinex] 1,200 mg PO BID #30 tab Metoprolol Succinate (ER) [Toprol XL] 12.5 mg PO DAILY #60 tab Albuterol Sulfate [Ventolin HFA] 2 puff INHALATION RT-Q4H PRN PRN Reason: Shortness Of Breath Fludrocortisone [Florinef] 0.1 mg PO DAILY #0 tab Aspirin 81 mg PO DAILY Omeprazole 40 mg PO DAILY Acetaminophen Tab [Tylenol] 650 mg PO Q6HR PRN PRN Reason: Fever And/ Or Pain Furosemide [Lasix] 40 mg PO BID@0900,1600 tab Potassium Chloride ER [K-Dur 20] 20 meq PO DAILY predniSONE 10 mg PO DAILY Benzonatate [Tessalon Perle] 200 mg PO TID Cetirizine HCl [Zyrtec] 10 mg PO DAILY Fluticasone/Umeclidin/Vilanter [Trelegy Ellipta 200-62.5-25] 1 puff INHALATION RT-DAILY Ipratropium-Albuterol Nebulize [Duoneb 0.5 mg-3 mg/3 ml Soln] 3 ml INHALATION RT-Q4H Dicyclomine [Bentyl] 20 mg PO BID Sildenafil Citrate 20 mg PO TID Loperamide [Imodium] 2 mg PO Q6H PRN PRN Reason: Diarrhea Ipratropium-Albuterol Nebulize [Duoneb 0.5 mg-3 mg/3 ml Soln] 3 ml INHALATION RT-Q6H PRN PRN Reason: Shortness Of Breath Or Wheezing Discharge Medication List Atorvastatin [Lipitor] 40 mg PO HS 08/06/24 [History] Cetirizine HCl [Zyrtec] 10 mg PO DAILY 08/06/24 [History] Ergocalciferol [Vitamin D2 (1250 Mcg = 47799 Iu)] 1,250 mcg PO MO 08/06/24 [History] Fluticasone/Umeclidin/Vilanter [Trelegy Ellipta 200-62.5-25] 1 puff INHALATION RT-DAILY 08/06/24 [History] Ipratropium-Albuterol Nebulize [Duoneb 0.5 mg-3 mg/3 ml Soln] 3 ml INHALATION RT-Q4H 08/06/24 [History] Ipratropium/Albuter 20-100Mcg [Combivent Respimat 20-100Mcg Inhaler] 1 puff INHALATION RT-QID 08/06/24 [History] Sertraline [Zoloft] 50 mg PO DAILY 08/06/24 [History] guaiFENesin [Mucinex] 1,200 mg PO BID #30 tab 08/13/24 [Rx] Metoprolol Succinate (ER) [Toprol XL] 12.5 mg PO DAILY #60 tab 09/25/24 [Rx] Albuterol Sulfate [Ventolin HFA] 2 puff INHALATION RT-Q4H PRN 10/24/24 [History] Fludrocortisone [Florinef] 0.1 mg PO DAILY #0 tab 12/17/24 [Rx] Acetaminophen Tab [Tylenol] 650 mg PO Q6HR PRN 01/12/25 [History] Aspirin 81 mg PO DAILY 01/12/25 [History] Dicyclomine [Bentyl] 20 mg PO BID 01/12/25 [History] Omeprazole 40 mg PO DAILY 01/12/25 [History] Sildenafil Citrate 20 mg PO TID 01/12/25 [History] Furosemide [Lasix] 40 mg PO BID@0900,1600 tab 01/18/25 [Rx] Benzonatate [Tessalon Perle] 200 mg PO TID 01/29/25 [History] Ipratropium-Albuterol Nebulize [Duoneb 0.5 mg-3 mg/3 ml Soln] 3 ml INHALATION RT-Q6H PRN 01/29/25 [History] Loperamide [Imodium] 2 mg PO Q6H PRN 01/29/25 [History] Potassium Chloride ER [K-Dur 20] 20 meq PO DAILY 01/29/25 [History] predniSONE 10 mg PO DAILY 01/29/25 [History] Follow up Appointment(s)/Referral(s): Nolan Chopra MD [Primary Care Provider] - 1-2 days Discharge Disposition: - Preliminary Cause of Preliminary Cause of : Sepsis and acute hypoxic respiratory failure secondary to HCAP
[2025-02-02] MEDS ORDERED: CHLORHEXIDINE GLUCONATE 15 ML CUP MUCOUS MEM SCH (21:00)
--- NOTE | 2025-02-07 21:03 | CDI ---
Documentation Clarification Form Date: 02/07/2025 08:46:39 PM From: Le Carbajal Phone: Admit Date: 01/29/2025 06:26:00 PM Patient Name: Sally Richmond Visit Number: [id number] Discharge Date: 02/02/2025 02:04:00 PM ATTENTION: The Clinical Documentation Specialists (CDI) and [facility] Coding Staff appreciate your assistance in clarifying documentation. Please respond to the clarification below the line at the bottom and electronically sign. The CDI & [facility] Coding staff will review the response and follow-up if needed. Please note: Queries are made part of the Legal Health Record. If you have any questions, please contact the author of this message via ITS. Doctor/Provider: Gabrielle Tineo Your patient has the documented diagnosis of Diastolic CHF: Not in acute exacerbation per Progress Note 01/31- 02/02 and DCS. Additional information regarding the acuity of CHF is requested. History/Risk Factors:74yo F, sepsis, AH/HRF, HCAP, acute met enceph, NSTEMI II, PHTN III, HTN, depression, anxiety, AAA, LICA, former smoker Clinical Indicators: VS/Pulse OX: 01/29/2507/11/2506 15:47 15:52 16:24 T 97.5 MA 110 RR 36 36 BP116/80 O2 Sat 87 86 BNP: 40181 Echo: Last echo from July 2024 shows an EF of 55%, severe RVdilatationwith signs of RVpressureoverloadwith RVSP of 67 mmHg. Moderate RV hypokinesia Chest X Ray: 01/29 Heart/mediastinum: Cardiomediastinal silhouette is unremarkable. 02/01 Heart/mediastinum: Cardiomediastinal silhouette isenlargedand stable. Atherosclerosis of the aorta. Treatment: Lasix 40 mg PO BID. Cardiology on board. In your professional opinion, can you please clarify the acuity of CHF if known? [ ] Acute Diastolic Heart Failure (preserved EF) [ ] Present on Admission [ ] Not present on admission [ x] Chronic Diastolic Heart Failure (preserved EF) [ ] Other, please specify [ ] Unable to determine (Template Last Revised: August 2020) MTDD
--- NOTE | 2025-02-07 21:23 | CDI ---
Documentation Clarification Form Date: 02/07/2025 08:46:39 PM From: Le Carbajal Phone: Admit Date: 01/29/2025 06:26:00 PM Patient Name: Sally Richmond Visit Number: [id number] Discharge Date: 02/02/2025 02:04:00 PM ATTENTION: The Clinical Documentation Specialists (CDI) and [facility] Coding Staff appreciate your assistance in clarifying documentation. Please respond to the clarification below the line at the bottom and electronically sign. The CDI & [facility] Coding staff will review the response and follow-up if needed. Please note: Queries are made part of the Legal Health Record. If you have any questions, please contact the author of this message via ITS. Doctor/Provider: Gabrielle Tineo The patient has SepsisandACH/HRFd/t tohospital acquired PNA per DCS. Based on this information and the findings below, is there an additional diagnosis that is clinically appropriate for this patient? History/Risk Factors: 74yo F, Sepsis, AH/HRF, HCAP, acute met enceph, NSTEMI II, PHTN III, HTN, depression, anxiety, AAA, LICA, former smoker Clinical Indicators: WBC: 01/29 23.11 01/30 20.89 01/31 18.44 Lactic acid: 01/29 2.8 01/30 2.2 Blood cultures: Due to concern for HAP in the settings of recent hospitalization with antibiotics, she was switched to cefepime and pharmacy to dose vancomycin, MRSA swab ordered,culturespending. 02/02 Bloodculturerevealed no growth. Vitals signs: 01/29/2507/11/2506 15:47 15:52 16:24 T 97.5 F HI 110 RR 36 36 BP116/80 O2 Sat 87 86 01/29/2507/05/25 16:53 17:02 HI 101 RR 24 BP120/86 O2 Sat 94 Fraction of 80 Treatment: ETT Patient becamehypotensive. CODE status was re-addressed with the family and they decided on NO CODE. Patient subsequently at 11:50 on 02/02. Is there an additional diagnosis that is clinically appropriate for this patient? [ ] Severe Sepsis, present on admission [ ] Septic Shock [ ] No additional diagnosis/not clinically significant [ ] Other, please specify sepsis present on admission [ ] Unable to determine SIRS Criteria: 2 or more of the following may indicate SIRS Temperature < 96.8F (36C) or > 101.0F (38.3C) Heart Rate > 90 bpm Respiratory Rate > 20 breaths/min or PaCO2 < 32 mmHg White Blood Cell Count > 12,000 or < 4,000 cells/mm3 or > 10% bands (Template Last Reviewed: July 2022) MTDD
--- NOTE | 2025-02-10 16:54 | CDI ---
Documentation Clarification Form Date: 02/10/2025 04:35:37 PM From: Elva Brink RN, CCDS Email: [email or web address] Admit Date: 01/29/2025 06:26:00 PM Patient Name: Sally Richmond Visit Number: [id number] Discharge Date: 02/02/2025 02:04:00 PM ATTENTION: The Clinical Documentation Specialists (CDI) and [facility] Coding Staff appreciate your assistance in clarifying documentation. Please respond to the clarification below the line at the bottom and electronically sign. The CDI & [facility] Coding staff will review the response and follow-up if needed. Please note: Queries are made part of the Legal Health Record. If you have any questions, please contact the author of this message via ITS. Doctor Gabrielle Tineo Patient has a documented BMI of 17.9. Additional clarification is requested. History/Risk Factors: From the 01/29 H&P: "known COPD on 5 L oxygen at home, HLD, HTN. Presented with acute respiratory distress." Admitted with acute on chronic hypoxic respiratory failure secondary to acute COPD exacerbation, possible underlying pneumonia. Clinical Indicators: Patients weight was 49kg Patients height was 5ft 5in Calculated BMI is 17.9 02/01 consult: "poor nutrition intake, <25% of meals, stage 2 pressure injury to coccyx, underweight. Patient with increased metabolic demand for wound healing. Recommend Ensure Enlive TID." Treatments: Ensure Enlive TID; monitor po intake QD; General healthful diet Dietary Consult: see above Please clarify, is there is an additional diagnosis that is clinically appropriate for this pt? [ ] Cachexia [ x] Underweight [ ] Failure to thrive [ ] Unplanned weight loss [ ] Malnutrition, (further specify severity and type) [ ] No additional diagnosis/not clinically significant [ ] Other, please specify [ ] Unable to determine MTDD
== END 2025-02-02 14:04 | disposition expired | DRG 871 ==
LOC: EC 15:44 → 3SCARD 18:26 → 2SICU 02-02 10:35
PROVIDERS: ADMIT Student in an Organized Health Care Education/Training Program; ATTEND Student in an Organized Health Care Education/Training Program
PROC: 5A09357 Assistance with Respiratory Ventilation, Less than 24 Consecutive Hours, Continuous Positive Airway Pressure (ICD-10-PCS; 2025-01-29)
PROC: 03HY32Z Insertion of Monitoring Device into Upper Artery, Percutaneous Approach (ICD-10-PCS; principal; 2025-02-02)
PROC: 5A1945Z Respiratory Ventilation, 24-96 Consecutive Hours (ICD-10-PCS; 2025-02-02)
PROC: 4A133B1 Monitoring of Arterial Pressure, Peripheral, Percutaneous Approach (ICD-10-PCS; 2025-02-02)
PROC: 4A133J1 Monitoring of Arterial Pulse, Peripheral, Percutaneous Approach (ICD-10-PCS; 2025-02-02)
PROC: 02HV33Z Insertion of Infusion Device into Superior Vena Cava, Percutaneous Approach (ICD-10-PCS; 2025-02-02)
PROC: 3E043XZ Introduction of Vasopressor into Central Vein, Percutaneous Approach (ICD-10-PCS; 2025-02-02)
PROC: 0BH18EZ Insertion of Endotracheal Airway into Trachea, Via Natural or Artificial Opening Endoscopic (ICD-10-PCS; 2025-02-02)
DX: A41.9 Sepsis, unspecified organism (principal); G93.41 Metabolic encephalopathy; J18.9 Pneumonia, unspecified organism; J96.21 Acute and chronic respiratory failure with hypoxia; J96.22 Acute and chronic respiratory failure with hypercapnia; I21.A1 Myocardial infarction type 2; Z66 Do not resuscitate; J44.1 Chronic obstructive pulmonary disease with (acute) exacerbation; I50.32 Chronic diastolic (congestive) heart failure; I27.81 Cor pulmonale (chronic); I11.0 Hypertensive heart disease with heart failure; I73.9 Peripheral vascular disease, unspecified; I65.22 Occlusion and stenosis of left carotid artery; F32.A Depression, unspecified; J44.0 Chronic obstructive pulmonary disease with (acute) lower respiratory infection; Z68.1 Body mass index [BMI] 19.9 or less, adult; I27.23 Pulmonary hypertension due to lung diseases and hypoxia; J43.9 Emphysema, unspecified; Z99.81 Dependence on supplemental oxygen; I71.43 Infrarenal abdominal aortic aneurysm, without rupture; I95.9 Hypotension, unspecified; R73.9 Hyperglycemia, unspecified; M79.89 Other specified soft tissue disorders; F41.9 Anxiety disorder, unspecified; E78.5 Hyperlipidemia, unspecified; I25.10 Atherosclerotic heart disease of native coronary artery without angina pectoris; Y95 Nosocomial condition; E87.6 Hypokalemia; K21.9 Gastro-esophageal reflux disease without esophagitis; T38.0X5A Adverse effect of glucocorticoids and synthetic analogues, initial encounter; Z87.891 Personal history of nicotine dependence; Z96.659 Presence of unspecified artificial knee joint; Z88.1 Allergy status to other antibiotic agents; Z79.52 Long term (current) use of systemic steroids; Z79.82 Long term (current) use of aspirin; Z79.899 Other long term (current) drug therapy; Z79.51 Long term (current) use of inhaled steroids; R63.6 Underweight
CPT/HCPCS: 36415; 36600; 51702; 70450; 70496; 70498; 71045; 71046; 80053; 80202; 81001; 82565; 82803; 82805; 83605; 83735; 83880; 84145; 84484; 85025; 85610; 85730; 87040; 87086; 87449; 87636; 93005; 93970; 94002; 94640; 94660; 94760; 96365; 96366; 96367; 96368; 96375; 96376; 99285